=== PATIENT | female | born 1990 | race Caucasian/White ===

== ENCOUNTER → 2016-07-23 | Outpatient (CLI) | payer OTHER, BC ==
[~2016-07-23] MED LIST: BACL10TA PO; BUSP5TAB59 PO; CLC100 PO; CYM30 PO; CYM60 PO; DANT100C PO; DOCUENE PR; FLUT0.15; GABA600T PO; GFNSR600 PO; LORA-741 PO; LRS20 PO; MAGN400T7 PO; METH1TAB5 PO; MIRT15TA3 PO; NRN/300 PO; NRN600 PO; NYST100098 TOP; ONDA4TAB10 SL; OXYC-57 PO; PRMT25 PO; SODI1TAB PO; XRL20 PO; ZOLP5TAB6 PO; [UNRECOGNIZED DRUG - CODE] PO
[2016-07-23 12:01] LABS: BASO % 0.6 %; BASO ABS # 0.03 K/uL (0-0.2); COMPLETE YES; EOS % 2.4 %; HEMATOCRIT 39.2 % (37-47); IG% 0.2 %; LYMPH % 48.3 %; LYMPH ABS # 2.41 K/uL (1.2-3.4); MEAN CELL VOLUME 93.6 fL (80-100); MEAN CORPUSCULAR HGB CONC 33.2 g/dl (32-36); MONO % 13.6 %; NEUT % 34.9 %; PLATELET COUNT 102 K/uL (130-400); RED BLOOD COUNT 4.19 M/uL (4.2-5.4); WHITE BLOOD COUNT 4.99 K/uL (4.8-10.8)
[2016-07-23 13:22] LABS: ALT/SGPT 23 U/L (12-78); BLOOD UREA NITROGEN 10 mg/dl (7-18); BUN/CREATININE RATIO 28.8 (10-20); CALCIUM 9.1 mg/dl (8.5-10.1); CARBON DIOXIDE 22 mmol/L (21-32); CHLORIDE 106 mmol/L (98-107); CREATININE 0.34 mg/dl (0.60-1.20); GLUCOSE 82 mg/dl (70-99); POTASSIUM 4.1 mmol/L (3.5-5.1); SODIUM 137 mmol/L (136-145)
[2016-07-23 13:27] LABS: ALB/GLOB RATIO 1.4 (0.9-2); ALKALINE PHOSPHATASE 64 U/L (45-117); AST/SGOT 15 U/L (15-37); FERRITIN 16.1 ng/ml (8.0-388.0); TOTAL IRON BINDING CAPACITY 308 mcg/dl (250-450)
== END | disposition home or self-care (01) ==
LOC: C.LAB 11:16
PROVIDERS: ATTEND Nurse Practitioner Family
DX: D61.818 Other pancytopenia (principal)

== ENCOUNTER → 2016-08-26 | Day surgery (SDC) | payer OTHER, BC ==
[2016-08-17 11:00] VITALS: BMI 17.0
[~2016-08-26] VITALS: Ht 175.3 cm; Wt 53.6 kg
[~2016-08-26] MED LIST changes: +ATROPINE SULFATE 0.1 MG/ML 5ML SYR IV PRN; +BOTULINUM TOXIN TYPE A 100 UNIT VIAL IM ONE; +EpHEDrine SULFATE INJ 50 MG/ML AMP IV PRN; +FENTANYL CITRATE INJ 50 MCG/1 ML 2 ML VIAL IV PRN; +FENTANYL CITRATE INJ 50 MCG/1 ML 2 ML VIAL ONE; +HYDROmorphone INJ 1 MG/ML SYR IV PRN; +LABETALOL HCL IV 5 MG/ML 20ML IV PRN; +LACTATED RINGER'S 1000ML 1,000 ML IV SCH; +MEPERIDINE HCL 25 MG/ML CARP IV PRN; +MIDAZOLAM HCL 1 MG/ML 2ML VIAL ONE; +NITROFURANTOIN MONOHYDRATE 100 MG CAP PO STA; -NRN600 PO; +ONDANSETRON INJ 2 MG/ML 2 ML VIAL IV PRN; +SODIUM CHLORIDE 0.9% PF 50 ML VIAL ONE
--- NOTE | 2016-08-26 08:02 | History & Physical Bridge Note ---
H&P Re-Evaluation Bridge Note: I have examined the patient, reviewed the History & Physical and in the interval since the performance of the History & Physical I have noted the following changes of clinical significance: No changes noted
[2016-08-26 08:14] VITALS: BP 101/66; PULSE 56; TEMP 36.7; O2SAT 97; Ht 175.3 cm; Wt 53.6 kg
--- NOTE | 2016-08-26 08:24 | History and Physical ---
History Date of Service: Aug 26, 2016. Chief Complaint: spinal cord injury with bladder overactivity and urge incontinence Primary Care Physician: Noel Centeno M.D.([email or web address]) Pt seen a urologist before?: Yes History of Present Illness Patient presents for repeat botox injection in bladder. We use this to control painful bladder spasms with urge incontinence and to improve bladder capacity. Laboratory Labs were reviewed and are within normal limits unless listed below. Labs are available in the chart and at [facility] Problem List Medical Problems: (1) Bronchitis Status: Acute (2) Bronchitis Status: Acute (3) Catheter-associated urinary tract infection Status: Acute (4) Diarrhea Status: Acute (5) Hx of spinal cord injury Status: Acute (6) Left sided chest pain Status: Acute (7) PVC's (premature ventricular contractions) Status: Acute Past History Past Medical History: anaphylaxis, bowel obstruction, deep vein thrombosis, hypercoagulability, pulmonary embolism, other (quadriplegia, traumatic) Past Surgical History: exploratory laparotomy (bowel obstruction, mitrophanof bladder catheterizable stoma, since removed at laparotomy ), orthopedic surgery , other Family History Diabetes mellitus FH: gallbladder disease FH: heart disease FHx: lung disease Hypertension Kidney disease Kidney stones Seizures Social History Hx Tobacco Use In Past Year?: Yes (QUIT 2011) Smoking: non-smoker Alcohol: never Drug use: none Marital status: single Housing status: lives with family Occupation status: student Immunizations History of Influenza Vaccine: Yes Influenza Vaccine Date: Feb 13, 2015 History of Tetanus Vaccine?: Yes Tetanus Immunization Date: Apr 17, 2011 History of Pneumococcal: No History of Hepatitis B Vaccine: Yes Hepatitis Immunization Date: May 22, 1998 History of MDRO Yes Allergies Coded Allergies: Cefepime (Verified Allergy, Severe, ANAPHYLAXIS, 08/26/16) Levofloxacin (Verified Allergy, Mild, rash, 08/26/16) Penicillins (Verified Allergy, Unknown, RASH PER MOTHER, 08/26/16) Sulfa Antibiotics (Verified Allergy, Unknown, `, 08/26/16) Imipenem (Verified Adverse Reaction, Severe, SEIZURE, 08/26/16) Progress note by Dr. Walker: "Seizure may have been caused by imipenem." This is not an allergy. If rechallenged, consider dosing conservatively. Vancomycin (Verified Adverse Reaction, Intermediate, RASH, 08/26/16) Medications Home Medications: Home Meds and Scripts Medications Dose Route/Sig Max Daily Dose Days Date Category Dose Instructions Neurontin (Gabapentin) 600 Mg Tab 600 Mg PO QID 08/17/16 Reported TAKES A 600 AND A 300 TOTAL OF 900 Neurontin (Gabapentin) 300 Mg Cap 300 Mg PO QID 08/17/16 Reported TAKES A 600 AND A 300 TOTAL OF 900 Baclofen 20 Mg Tab 20 Mg PO QID 08/17/16 Reported TAKES A 10MG AND A 20 MG TOTAL OF 30 Buspirone Hcl 5 Mg Tab 1 Tab PO BID PRN 30 03/17/16 Reported Lioresal (Baclofen) 10 Mg Tab 10 Mg PO QID 03/03/16 Reported TAKES A 10MG AND A 20 MG TOTAL OF 30 Xarelto (Rivaroxaban) 20 Mg Tab 20 Mg PO QAM 02/06/16 Reported WILL HOLD ONE DAY Sodium Chloride 1 Gm Tab 2 Gm PO TID 02/06/16 Reported Magnesium Oxide (Magnesium Oxide (Mg Supplement) 241.3 Mg Tab 241.3 Mg PO DAILY 02/06/[address] [facility] Vitamin C (Ascorbic Acid) 500 Mg Tab 1,000 Mg PO BID 02/06/16 Reported Zolpidem Tartrate 5 Mg Tab 5 Mg PO HS PRN 02/06/16 Reported Duloxetine HCl 60 Mg Cap 60 Mg PO QAM 02/06/16 Reported Duloxetine HCl 30 Mg Cap 30 Mg PO QPM 02/06/16 Reported TAKE 30 MG IN THE AFTERNOON Methenamine Hippurate 1 Gm Tab 1 Gm PO BID 02/06/16 Reported Enemeez Mini (Docusate Sodium) 283 Mg Irma 1 Ea AL HS 02/06/16 Reported Docusate Sodium 100 Mg Cap 100 Mg PO BID 02/06/16 Reported Mucinex Ext Rel (Guaifenesin) 600 Mg Tabcr 1,200 Mg PO Q12 PRN 02/06/16 Reported Zofran Odt (Ondansetron HCl) 4 Mg Tab 4 Mg SL Q6H PRN 11/06/15 Reported Dantrolene Sodium 100 Mg Cap 100 Mg PO TID 10/09/15 Reported Mycostatin (Nystatin) Powd 1 Appln TOP BID PRN 07/29/15 Reported Flonase Allergy Relief (Fluticasone Propionate (Nasal)) 50 Mcg/Act Spr 2 Sprays NA HS PRN 07/29/15 Reported Percocet 5MG/325MG (Oxycodone/Acetaminophen) Tab 1 Tab PO Q4H PRN 07/29/15 Reported Ativan (Lorazepam) 0.5 Mg Tab 0.5 Mg PO Q8 PRN 08/27/14 Reported Remeron (Mirtazapine) 15 Mg Tab 7.5 Mg PO HS 10/27/13 Reported Midodrine HCl (Midodrine) 2.5 Mg Tab 2.5 Mg PO QAM 09/17/13 Reported Inpatient Medications: Current Inpatient Medications Medications (Trade) Dose Ordered Sig/Mila Route Start Time Stop Time Status Last Admin Dose Admin Lactated Ringer's (Lr 1000ml) 1,000 ml @ 15 mls/hr Q24H IV 08/26/16 06:00 08/27/16 05:59 Botulinum Toxin Type A (Botox Inj) 200 units ONE IM 08/26/16 07:30 09/25/16 07:29 UNV Fentanyl Citrate (Fentanyl Inj) 50 mcg Q5M PRN IV 08/26/16 07:45 08/27/16 07:44 UNV Hydromorphone HCl (Dilaudid Inj) 0.5 mg Q5M PRN IV 08/26/16 07:45 08/27/16 07:44 UNV Meperidine HCl (Demerol Inj) 25 mg Q5M PRN IV 08/26/16 07:45 08/27/16 07:44 UNV Ondansetron HCl (Zofran Inj) 4 mg ONE PRN IV 08/26/16 07:45 08/27/16 07:44 UNV Labetalol HCl (Normodyne IV) 5 mg Q5M PRN IV 08/26/16 07:45 08/27/16 07:44 UNV Ephedrine Sulfate (EpHEDrine SULFATE INJ) 5 mg Q5M PRN IV 08/26/16 07:45 08/27/16 07:44 UNV Atropine Sulfate (Atropine Sulfate 0.1MG/Ml Inj) 0.5 mg Q1M PRN IV 08/26/16 07:45 08/27/16 07:44 UNV Review of Systems Review of Systems Constitutional: No chills, No fever Neurological: No dizzy Endocrine: + tired/sluggish, No excessive thirst Cardiovascular: No chest pain, No palpitations, No swelling ankles/feet (small dark skin posterior left heal 20mm ) Respiratory: No chronic cough, No shortness of breath Musculoskeletal: + back pain, + joint pain, + neck pain Female : + infections, + leaking urine Physical Exam Physical Exam: General Appearance: WD/WN, no apparent distress, + thin Eyes: bilateral eyes normal inspection ENT: hearing grossly normal Neck: no adenopathy Respiratory/Chest: lungs clear, normal breath sounds, no respiratory distress, + accessory muscle use Cardiovascular: regular rate, rhythm, no edema Extremities: non-tender, normal inspection, + pedal edema Neurologic/Psychiatric: alert, normal mood/affect, oriented x 3 Skin: normal color, warm/dry, no rash Assessment & Plan Assessment & Plan spinal cord injury with bladder overactivity and bladder spasms and urge incontinence plan botox injection 200 units she has been on macrobid antibiotic culture specific for her latest urine culture. She and her mother have signed consent understanding risk of infection.
[2016-08-26 09:20] VITALS: BP 82/46; PULSE 65; TEMP 36.5; O2SAT 95
--- NOTE | 2016-08-26 09:22 | [facility] Operative Report ---
Operative Report Operative Date Aug 26, 2016. Pre-Operative Diagnosis Spinal cord injury with bladder overactivity and bladder spasms and urge incontinence Post-Operative Diagnosis same plus bladder stones Procedure(s) Performed cysto with injection of botox into bladder detrusor muscle, fragmentation and removal of small bladder stones. Bonds catheter placement. Surgeon Dr. Shoemaker Front Desk Administrator Surgeon(s) none Estimated Blood Loss 1mL Findings white soft corn flake size 2mm thick bladder sones x 3. Bladder wall is not inflamed. Mildly trabeculated. UOs normal. Fluids 100mL Specimens none Drains 16 fr bonds catheter Anesthesia iv sedation Complication(s) None Disposition same day surgery Indications spinal cord injury with retention and on intermittent catheterization. her bladder cannot go longer than 2 hours without pressure headache and urinary leakage. We plan botox to relax detrusor muscle decrease storage pressures and improve bladder capacity and decrease leakage so she can go longer between caths. Description of Procedure Patient had sedation and was placed carefully in lithotomy position. She was awake enough to make any adjustments to position for her comfort. her genitals were prepped and draped in sterile fashion. She is menstruating. time out held with team. I placed a 22 fr cystoscope to bladder. The bladder is not inflamed. She had 3 cornflake size bladder stones white in color and soft. Simple manipulation with the scope was able to crack them and the pieces were carefully rinsed out. I injected 200 units of botox via 30 injections spread throughout the bladder. I used a 21 G sidekick needle. The was mild bleeding from one of the injections. I removed scope and placed a 16 fr bonds and inflated the balloon with 5mL water. She tolerated procedure well and transferred in stable condition to pacu. asa 3 dirty case + urine culture last week had culture specific pre-op macrobid last 3 days I attest to the content of the Intraoperative Record and any orders documented therein. Any exceptions are noted below.
--- NOTE | 2016-08-26 09:26 | Discharge Instructions ---
Discharge Instructions Date of Service Aug 26, 2016. Admission Reason for Admission: spinal cord injury, urge incontinence Discharge Discharge Diagnosis / Problem: spinal cord injury, urge incontinence, bladder stones Discharge Goals Goal(s): Decrease discomfort, Improve function, Improve disease control Activity Recommendations Activity Limitations: resume your previous activity Lifting Limitations: none Exercise/Sports Limitations: none May Resume Sexual Activity: when tolerated Shower/Bathe: no limitations Driving or Machine Use: resume 1 day after discharge . Instructions / Follow-Up Instructions / Follow-Up call with problems Discharge Diet Recommended Diet: Regular Diet Procedures Procedures Performed: Cystoscopy with botox injection, removal of small bladder stones Pending Studies Studies pending at discharge: no Medical Emergencies . Who to Call and When: Medical Emergencies: If at any time you feel your situation is an emergency, please call 911 immediately. . Non-Emergent Contact Non-Emergency issues call your: Urologist ([phone]) Call Non-Emergent contact if: temperature is above 100.5 . . "Provider Documentation" section prepared by Heidi Shoemaker. VTE Core Measure Inpt VTE Proph given/why not?: SCD's [place] Drug Monitoring Program Search Results: patient reviewed within database, no issues identified
[2016-08-26 09:50] VITALS: BP 83/54; PULSE 66; O2SAT 97
[2016-08-26 10:20] VITALS: PULSE 60; O2SAT 96
--- NOTE | 2016-08-26 11:18 | Anesthesiology Progress Note ---
Anesthesia Post Op Note Date & Time Aug 26, 2016 at 11:18 Vital Signs Pain Intensity: 0 Vital Signs Past 12 Hours Date Time Temp Pulse Resp B/P Pulse Ox O2 Delivery O2 Flow Rate FiO2 08/26/16 09:50 66 18 83/54 97 Room Air 08/26/16 09:20 36.5 65 18 82/46 95 Room Air 08/26/16 08:14 36.7 56 20 101/66 97 Room Air Notes Mental Status: alert / awake / arousable, participated in evaluation Pt Amnestic to Procedure: Yes Nausea / Vomiting: adequately controlled Pain: adequately controlled Airway Patency, RR, SpO2: stable & adequate BP & HR: stable & adequate Hydration State: stable & adequate Anesthetic Complications: no major complications apparent
--- NOTE | 2016-08-26 11:35 | DIAGNOSTIC IMAGING REPORT ---
A-PORT CHECK CLINICAL HISTORY: No blood return from the port for 1 year. Discomfort at port site and difficulty with port access. Fluoroscopy time: 0.3 minutes. FINDINGS: The patient's left subclavian central venous infusion port was accessed and contrast was manually injected for an A-Port check. There is normal flow of contrast through the port into the SVC. There is no evidence of fibrin sheath. The port appears intact. IMPRESSION: Unremarkable infusion port check. The catheter appears intact and there is no evidence of fibrin sheath. Electronically signed by: Will eBtts M.D. 08/26/2016 11:34 AM Dictated Date/Time: 08/26/2016 11:23 AM
== END | disposition home or self-care (01) ==
LOC: C.ACU 07:13
PROVIDERS: ATTEND Urology
DX: N21.0 Calculus in bladder (principal); N39.41 Urge incontinence; N32.89 Other specified disorders of bladder; G82.50 Quadriplegia, unspecified

== ENCOUNTER → 2017-06-23 | Day surgery (SDC) | payer BC, OTHER ==
[~2017-06-23] VITALS: Ht 175.3 cm; Wt 63.2 kg
[~2017-06-23] MED LIST changes: -BOTULINUM TOXIN TYPE A 100 UNIT VIAL IM ONE; +BUSP-8 PO; -BUSP5TAB59 PO; +DEXAMETHASONE SOD INJ 4 MG/ML VIAL ONE; +DEXTROSE 5% IV SCH; +DiphenhydrAMINE HCL 50 MG/ML VIAL ONE; +GABA-113 PO; -LABETALOL HCL IV 5 MG/ML 20ML IV PRN; -LACTATED RINGER'S 1000ML 1,000 ML IV SCH; +LIDOCAINE HCL 2% 2 ML VIAL (20MG/ML) ONE; -MEPERIDINE HCL 25 MG/ML CARP IV PRN; +METH-1305 PO; -METH1TAB5 PO; +NITR-5 PO; -NITROFURANTOIN MONOHYDRATE 100 MG CAP PO STA; -NRN/300 PO; +NURSING VERBAL MED ORDER ONE; +NYST100033 TOP; -NYST100098 TOP; -ONDA4TAB10 SL; -OXYC-57 PO; +OXYC-643 PO; -PRMT25 PO; +PROMETHAZINE HCL INJ 12.5 MG in SODIUM CHLORIDE 0.9% 50ML 50 ML IV PRN; +PROPOFOL IV EMULSION 10 MG/ML 20 ML VIAL IV ONE; +RANITIDINE HCL 25 MG/ML INJ ONE; -SODI1TAB PO; +TOBRAMYCIN SULF IV SCH; +[UNRECOGNIZED DRUG - OTHER] IM ONE
[2017-06-23 14:02] LABS: HEMATOCRIT 41.6 % (37-47); HEMOGLOBIN 14.1 g/dL (12.0-16.0); MEAN CELL VOLUME 92.2 fL (80-100); MEAN CORPUSCULAR HEMOGLOBIN 31.3 pg (25-34); MEAN PLATELET VOLUME 10.4 fL (7.4-10.4); PLATELET COUNT 101 K/uL (130-400); RED CELL DISTRIBUTION WIDTH CV 12.9 % (11.5-14.5); RED CELL DISTRIBUTION WIDTH SD 43.4 fL (36.4-46.3); WHITE BLOOD COUNT 5.34 K/uL (4.8-10.8)
[2017-06-23 14:07] LABS: MEAN CORPUSCULAR HGB CONC 33.9 g/dl (32-36)
[2017-06-23 14:11] VITALS: BP 123/91; PULSE 65; TEMP 37; O2SAT 97; Ht 175.3 cm; Wt 63.2 kg
--- NOTE | 2017-06-23 15:28 | History and Physical ---
History & Physical Date Jun 23, 2017. Chief Complaint quadriplegia causing bladder spasms History of Present Illness The patient is a 26 year old female with complaints of painful bladder spasms despite large doses antimuscarinics. We use botox about yearly injected into bladder. her spasms have become severe so we plan new injection of botox into bladder. Her urine is chronically colonized so she has had 3 cam of oral and iv antibiotics culture specific. Her bladder pain has improved and it has cleared its cloudiness, but her spasms continue. 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 (11) Methicillin resistant Staphylococcus aureus infection (12) Neurogenic bladder (13) Quadriplegia (14) Quadriplegia Surgical Problems: (1) H/O tracheostomy (2) PEG (percutaneous endoscopic gastrostomy) status (3) S/p Aport placement (4) S/P appendectomy (5) S/p bladder stone removal (6) S/p ileocecectomy and resection of ileal conduit (7) s/p robotic enterocystoplasty (8) S/P spinal fusion (9) S/P thoracentesis Additional History Hepatic Disease: No Endocrine Disorder: No Kidney Disease: No Hypertension: No Heart Disease: No Infectious Diseases: Yes LMP: apr 2017 Allergies Coded Allergies: Cefepime (Verified Allergy, Severe, ANAPHYLAXIS, 06/22/17) Levofloxacin (Verified Allergy, Mild, rash, 06/22/17) Penicillins (Verified Allergy, Unknown, RASH PER MOTHER, 06/22/17) Sulfa Antibiotics (Verified Allergy, Unknown, UNKNOWN, 06/22/17) Imipenem (Verified Adverse Reaction, Severe, SEIZURE, 06/22/17) Progress note by Dr. Walker: "Seizure may have been caused by imipenem." This is not an allergy. If rechallenged, consider dosing conservatively. Vancomycin (Verified Adverse Reaction, Intermediate, RASH, 06/22/17) Home Medications Scheduled Ascorbic Acid ([facility] Vitamin C), 1,000 MG PO BID Baclofen (Lioresal), 10 MG PO QID Baclofen (Baclofen), 20 MG PO QID Buspirone Hcl (Buspirone Hcl), 1 TAB PO BID Dantrolene Sodium (Dantrolene Sodium), 100 MG PO TID Docusate Sodium (Docusate Sodium), 100 MG PO BID Docusate Sodium (Enemeez Mini), 1 EA MD HS Duloxetine HCl (Duloxetine HCl), 30 MG PO QPM Duloxetine HCl (Duloxetine HCl), 60 MG PO QAM Gabapentin (Neurontin), 600 MG PO HS Gabapentin (Neurontin), 300 MG PO TID Magnesium Oxide (Mg Supplement (Magnesium Oxide), 241.3 MG PO QPM Methenamine Hippurate (Methenamine Hippurate), 1 GM PO BID Mirtazapine (Remeron), 7.5 MG PO HS Nitrofurantoin Monohyd Macrocr (Macrobid), 100 MG PO BID Rivaroxaban (Xarelto), 20 MG PO QAM Scheduled PRN Fluticasone Propionate (Nasal) (Flonase Allergy Relief), 2 SPRAYS NA HS PRN for Nasal Congestion Guaifenesin Ext Rel (Mucinex Ext Rel), 1,200 MG PO Q12 PRN for Mucous Congestion Lorazepam (Ativan), 0.5 MG PO Q8 PRN for Anxiety Nystatin (Topical) (Nystatin), 1 DOSE TOP BID PRN for N Zolpidem Tartrate (Zolpidem Tartrate), 5 MG PO HS PRN for Insomnia Physical Examination Skin: warm/dry Eyes: normal inspection ENT: normal ENT inspection Head: normocephalic Neck: no adenopathy, trachea midline, + pertinent finding (scar from prior trach) Respiratory/Chest: lungs clear, normal breath sounds, no respiratory distress Cardiovascular: regular rate, rhythm Abdomen / GI: normal bowel sounds, + pertinent finding (mildly distended) Extremities: normal inspection, + pertinent finding (chronic wasting) Diagnosis bladder spasms due to spinal cord injury ASA Classification: ASA Class III Plan of Treatment plan botox injection into bladder has had both doses of abt today so far. 200 units botox injected into detrusor I have explained procedure and risks and her mother signed consent for her.
--- NOTE | 2017-06-23 16:34 | [facility] Operative Report ---
Operative Report Operative Date Jun 23, 2017. Pre-Operative Diagnosis bladder spasms due to quadriplegia Post-Operative Diagnosis same Procedure(s) Performed cystoscopy with injection of botox into detrusor muscle Surgeon Dr. Shoemaker Machine Lay Out Worker Surgeon(s) none Estimated Blood Loss 0mL Findings fine specks of stone 1mm or less in bladder, no active cystitis , some very faded signs of cystitis cystica, little to no trabeculation, uos normal Fluids 400mL Specimens none Drains 14 fr Bonds Anesthesia iv sedation Complication(s) None Disposition Recovery Room / PACU Indications severe bladder spasms due to quadriplegia despite oral antimuscarinics Description of Procedure Patient was sedated and placed in lithotomy position. Her genitals were prepped and draped in sterile fashion. Time out held with team. I placed a 21 fr rigid collagen injecting cystoscope to bladder. The urethra is unremarkable. The UOs are in normal location. I used the sidekick needle to inject 200 units of botox into detrusor throughout bladder in 31 one mL injections. She tolerated it well. I drained bladder by placing a 14 fr bonds and concluded case. She transferred to recovery under my escort, in stable condition. Plan: Home today finish po macrobid and iv tobramycin this week oral pain meds as needed ASA 3 dirty case macrobid and tobramycin antibiotic prior to case I attest to the content of the Intraoperative Record and any orders documented therein. Any exceptions are noted below.
--- NOTE | 2017-06-23 16:37 | Discharge Instructions ---
Discharge Instructions Date of Service Jun 23, 2017. Admission Reason for Admission: bladder spasms due to quadriplegia Discharge Discharge Diagnosis / Problem: bladder spasms due to quadriplegia Discharge Goals Goal(s): Decrease discomfort, Improve function, Improve disease control Activity Recommendations Activity Limitations: resume your previous activity . Current Hospital Diet Patient's current hospital diet: Discharge Diet Recommended Diet: Regular Diet Procedures Procedures Performed: cystoscopy with injection of botox into detrusor muscle Pending Studies Studies pending at discharge: no Medical Emergencies . Who to Call and When: Medical Emergencies: If at any time you feel your situation is an emergency, please call 911 immediately. . Non-Emergent Contact Non-Emergency issues call your: Urologist Call Non-Emergent contact if: temperature is above 100.5 . . "Provider Documentation" section prepared by Heidi Shoemaker. . VTE Core Measure Inpt VTE Proph given/why not?: Other Anticoagulation, SCD's [place] Drug Monitoring Program Search Results: patient reviewed within database, no issues identified
--- NOTE | 2017-06-23 16:54 | Anesthesiology Progress Note ---
Anesthesia Post Op Note Date & Time Jun 23, 2017 at 16:51 Vital Signs Pain Intensity: 0 Vital Signs Past 12 Hours Date Time Temp Pulse Resp B/P (MAP) Pulse Ox O2 Delivery O2 Flow Rate FiO2 06/23/17 16:45 36.3 66 14 94/56 99 Nasal Cannula 2 06/23/17 16:35 60 14 103/67 99 Nasal Cannula 2 06/23/17 16:25 36.4 74 12 107/63 94 Nasal Cannula 2 06/23/17 14:11 37 65 16 123/91 (102) 97 Notes Mental Status: alert / awake / arousable, participated in evaluation Pt Amnestic to Procedure: Yes Nausea / Vomiting: adequately controlled Pain: adequately controlled Airway Patency, RR, SpO2: stable & adequate BP & HR: stable & adequate Hydration State: stable & adequate Anesthetic Complications: no major complications apparent Pt awake, doing well, VSS. Noted a rash on the upper chest and neck area after fentanyl was given. Lips and mouth area was not affected. Pt was treated with decadron, ranitidine, and 12.5mg iv benadryl with improvement in rash. In PACU pt c/o more itching and another 12.5mg of IV benadryl was given with resolution of rash and improvement of pruritus. Pt denies any SOB, problem breathing, or swelling anywhere.
[2017-06-23 16:55] VITALS: BP 97/56; PULSE 62; TEMP 36.6; O2SAT 99
--- NOTE | 2017-06-23 16:56 | Anesthesiology Progress Note ---
Anesthesia Post Op Note Date & Time Jun 23, 2017 at 16:52 Vital Signs Pain Intensity: 0 Vital Signs Past 12 Hours Date Time Temp Pulse Resp B/P (MAP) Pulse Ox O2 Delivery O2 Flow Rate FiO2 06/23/17 16:45 36.3 66 14 94/56 99 Nasal Cannula 2 06/23/17 16:35 60 14 103/67 99 Nasal Cannula 2 06/23/17 16:25 36.4 74 12 107/63 94 Nasal Cannula 2 06/23/17 14:11 37 65 16 123/91 (102) 97 Notes Mental Status: alert / awake / arousable Pt Amnestic to Procedure: Yes Nausea / Vomiting: adequately controlled Pain: adequately controlled Airway Patency, RR, SpO2: stable & adequate BP & HR: stable & adequate Hydration State: stable & adequate At the beginning of the case after 2 of versed had been administered and 100 mcg of fentanyl a rash was noted across the patients right side of her chest up to the right side of her face; BASKET MENDER notified the urologist and Dr. Larios. Pt was given 12.5 mg IV benadryl and 12. mg IV ranitidine and 8 mg IV decadron. Pt had become slightly hypotensive (89/46) pt was give a 200 cc IVF bolus. When pt was taken to PACU pt was still complaining of itchiness. Dr. Larios was notified and patient was then given 12.5 mg IV benadryl. Itchiness and rash improved.
[2017-06-23 17:25] VITALS: BP 117/76; PULSE 62; TEMP 36.5; O2SAT 98
== END | disposition home or self-care (01) ==
LOC: C.ACU 13:31
PROVIDERS: ATTEND Urology
DX: N32.89 Other specified disorders of bladder (principal); N31.9 Neuromuscular dysfunction of bladder, unspecified; L27.1 Localized skin eruption due to drugs and medicaments taken internally; T40.4X5A Adverse effect of other synthetic narcotics, initial encounter; G82.50 Quadriplegia, unspecified; G90.4 Autonomic dysreflexia; F32.9 Major depressive disorder, single episode, unspecified; Z93.0 Tracheostomy status; Z98.890 Other specified postprocedural states; Z79.899 Other long term (current) drug therapy

== ENCOUNTER 2017-08-18 17:47 | Inpatient (IN) | payer BC, OTHER ==
[~2017-08-18] VITALS: Ht 175.3 cm; Wt 63.0 kg
[~2017-08-18 17:47] MED LIST changes: -ATROPINE SULFATE 0.1 MG/ML 5ML SYR IV PRN; -BACL10TA PO; -DEXAMETHASONE SOD INJ 4 MG/ML VIAL ONE; -DEXTROSE 5% IV SCH; +DTR/5 PO; -DiphenhydrAMINE HCL 50 MG/ML VIAL ONE; -EpHEDrine SULFATE INJ 50 MG/ML AMP IV PRN; -FENTANYL CITRATE INJ 50 MCG/1 ML 2 ML VIAL IV PRN; -FENTANYL CITRATE INJ 50 MCG/1 ML 2 ML VIAL ONE; -HYDROmorphone INJ 1 MG/ML SYR IV PRN; -LIDOCAINE HCL 2% 2 ML VIAL (20MG/ML) ONE; -MIDAZOLAM HCL 1 MG/ML 2ML VIAL ONE; -NITR-5 PO; -NURSING VERBAL MED ORDER ONE; -ONDANSETRON INJ 2 MG/ML 2 ML VIAL IV PRN; -PROMETHAZINE HCL INJ 12.5 MG in SODIUM CHLORIDE 0.9% 50ML 50 ML IV PRN; -PROPOFOL IV EMULSION 10 MG/ML 20 ML VIAL IV ONE; -RANITIDINE HCL 25 MG/ML INJ ONE; -SODIUM CHLORIDE 0.9% PF 50 ML VIAL ONE; -TOBRAMYCIN SULF IV SCH; +VITACAP26 PO; -[UNRECOGNIZED DRUG - OTHER] IM ONE
[2017-08-18] MEDS ORDERED: HYDROmorphone INJ 1 MG/ML SYR IV STA (18:08)
[2017-08-18] MEDS ORDERED: ONDANSETRON INJ 2 MG/ML 2 ML VIAL IV STA (18:08)
[2017-08-18] MEDS ORDERED: METRONIDAZOLE 500MG / 100ML NSS IV STA (18:26)
[2017-08-18] MEDS ORDERED: CEFTAZIDIME IV STA (18:26)
[2017-08-18] MEDS ORDERED: DEXTROSE 5% IV STA (18:26)
--- NOTE | 2017-08-18 18:33 | EMERGENCY ROOM VISIT NOTE ---
History Report prepared by Etienne: Albina Salmeron Under the Supervision of: Dr. Servando Philippe M.D. First contact with patient: 17:57 Chief Complaint: WOUND INFECTION Stated Complaint: OPEN WOUND ON BUTTUCKS, REFERRED History of Present Illness The patient is a 26 year old female who presents to the Emergency Room with complaints of a persistent infected wound on her left buttock that began a couple of weeks ago. The patient states that she is a patient at the wound clinic, where they have been treating her wound. One week ago, the patient had some culture collected from her wound, noting that she got the results back 2 days ago. She reports that the doctor told her to report to the Emergency Department if her symptoms worsened, noting he suggested she receive IV antibiotics. The patient's mother states that they had a follow up appointment today at the wound clinic, but they were unable to go because of the weather conditions. The patient takes Percocet to relieve her left buttock pain, noting the last time she took any was last night. She reports that he has a port in place. Source of History: patient Onset: a couple of weeks ago Position: buttock (left) Quality: other (infected wound) Timing: other (persistent) Note: Associated symptoms include: left buttock pain Review of Systems See HPI for pertinent positives & negatives. A total of 10 systems reviewed and were otherwise negative. 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 (11) Methicillin resistant Staphylococcus aureus infection (12) Neurogenic bladder (13) Quadriplegia (14) Quadriplegia Surgical Problems: (1) H/O tracheostomy (2) PEG (percutaneous endoscopic gastrostomy) status (3) S/p Aport placement (4) S/P appendectomy (5) S/p bladder stone removal (6) S/p ileocecectomy and resection of ileal conduit (7) s/p robotic enterocystoplasty (8) S/P spinal fusion (9) S/P thoracentesis Family History Diabetes mellitus FH: gallbladder disease FH: heart disease FHx: lung disease Hypertension Kidney disease Kidney stones Seizures Social History Smoking Status: Former Smoker Alcohol Use: none Drug Use: none Marital Status: single Housing Status: lives with family Occupation Status: disabled Current/Historical Medications Scheduled Ascorbic Acid (Cvs Vitamin C), 1,000 MG PO BID Baclofen (Baclofen), 20 MG PO QID Buspirone Hcl (Buspirone Hcl), 1 TAB PO BID Dantrolene Sodium (Dantrolene Sodium), 100 MG PO TID Docusate Sodium (Docusate Sodium), 100 MG PO BID Docusate Sodium (Enemeez Mini), 1 EA [place] HS Duloxetine HCl (Duloxetine HCl), 30 MG PO QPM Duloxetine HCl (Duloxetine HCl), 60 MG PO QAM Gabapentin (Neurontin), 600 MG PO HS Gabapentin (Neurontin), 300 MG PO BID Magnesium Oxide (Mg Supplement (Magnesium Oxide), 400 MG PO QPM Methenamine Hippurate (Methenamine Hippurate), 1 GM PO BID Mirtazapine (Remeron), 7.5 MG PO HS Oxybutynin Chloride (Ditropan), 5 MG PO QID Oxycodone/Acetaminophen 5MG/325MG (Oxycodone/Acetaminophen 5MG/325MG), 1 TABLET PO Q6H Rivaroxaban (Xarelto), 20 MG PO QAM Vitamins C & E (Vitamin C), 500 MG PO BID Scheduled PRN Fluticasone Propionate (Nasal) (Flonase Allergy Relief), 2 SPRAYS NA HS PRN for Nasal Congestion Guaifenesin Ext Rel (Mucinex Ext Rel), 1,200 MG PO Q12 PRN for Mucous Congestion Lorazepam (Ativan), 0.5 MG PO Q8 PRN for Anxiety Nystatin (Topical) (Nystatin), 1 DOSE TOP BID PRN for N Zolpidem Tartrate (Zolpidem Tartrate), 5 MG PO HS PRN for Insomnia Allergies Coded Allergies: Cefepime (Verified Allergy, Severe, ANAPHYLAXIS, 06/24/17) Levofloxacin (Verified Allergy, Mild, rash, 06/24/17) Penicillins (Verified Allergy, Unknown, RASH PER MOTHER, 06/24/17) Sulfa Antibiotics (Verified Allergy, Unknown, UNKNOWN, 06/24/17) Imipenem (Verified Adverse Reaction, Severe, SEIZURE, 06/24/17) Progress note by Dr. Walker: "Seizure may have been caused by imipenem." This is not an allergy. If rechallenged, consider dosing conservatively. Vancomycin (Verified Adverse Reaction, Intermediate, RASH, 06/24/17) Physical Exam Vital Signs Date Time Temp Pulse Resp B/P (MAP) Pulse Ox O2 Delivery O2 Flow Rate FiO2 08/18/17 18:32 100 Room Air 08/18/17 17:48 36.7 66 17 136/90 100 Room Air Physical Exam GENERAL: Awake, alert, well-appearing, in no acute distress HENT: Normocephalic, atraumatic. Oropharynx unremarkable. EYES: Normal conjunctiva. Sclera non-icteric. NECK: Supple. No nuchal rigidity. FROM. No JVD. RESPIRATORY: Clear to auscultation. CARDIAC: Regular rate, normal rhythm. Extremities warm and well perfused. Pulses equal. ABDOMEN: Soft, non-distended. No tenderness to palpation. No rebound or guarding. No masses. RECTAL: Deferred. MUSCULOSKELETAL: Chest examination reveals no tenderness. The back is symmetrical on inspection without obvious abnormality. There is no CVA tenderness to palpation. No joint edema. LOWER EXTREMITIES: Quarter size and malodorous ulcer on left buttock. Contractures present to bilateral lower extremities and fourth and fifth fingers bilaterally. Calves are equal size bilaterally and non-tender. No edema. No discoloration. NEURO: Normal sensorium. No sensory or motor deficits noted. SKIN: No rash or jaundice noted. Medical Decision & Procedures Laboratory Results 08/18/17 18:37 Red Blood Count 4.22, Mean Corpuscular Volume 91.9, Mean Corpuscular Hemoglobin 30.8, Mean Corpuscular Hemoglobin Concent 33.5, Mean Platelet Volume 10.6, Neutrophils (%) (Auto) 44.0, Lymphocytes (%) (Auto) 39.6, Monocytes (%) (Auto) 11.6, Eosinophils (%) (Auto) 4.2, Basophils (%) (Auto) 0.4, Neutrophils # (Auto ) 2.09, Lymphocytes # (Auto) 1.88, Monocytes # (Auto) 0.55, Eosinophils # (Auto ) 0.20, Basophils # (Auto) 0.02 Test 08/18/17 18:37 White Blood Count 4.75 K/uL (4.8-10.8) Red Blood Count 4.22 M/uL (4.2-5.4) Hemoglobin 13.0 g/dL (12.0-16.0) Hematocrit 38.8 % (37-47) Mean Corpuscular Volume 91.9 fL (80-100) Mean Corpuscular Hemoglobin 30.8 pg (25-34) Mean Corpuscular Hemoglobin Concent 33.5 g/dl (32-36) Platelet Count 113 K/uL (130-400) Mean Platelet Volume 10.6 fL (7.4-10.4) Neutrophils (%) (Auto) 44.0 % Lymphocytes (%) (Auto) 39.6 % Monocytes (%) (Auto) 11.6 % Eosinophils (%) (Auto) 4.2 % Basophils (%) (Auto) 0.4 % Neutrophils # (Auto) 2.09 K/uL (1.4-6.5) Lymphocytes # (Auto) 1.88 K/uL (1.2-3.4) Monocytes # (Auto) 0.55 K/uL (0.11-0.59) Eosinophils # (Auto) 0.20 K/uL (0-0.5) Basophils # (Auto) 0.02 K/uL (0-0.2) RDW Standard Deviation 45.8 fL (36.4-46.3) RDW Coefficient of Variation 13.7 % (11.5-14.5) Immature Granulocyte % (Auto) 0.2 % Immature Granulocyte # (Auto) 0.01 K/uL (0.00-0.02) Labs reviewed by ED physician. ED Course 1800: Past medical records reviewed. The patient was evaluated in room C4. A complete history and physical examination was performed. 1807: Ordered Zofran Inj 4mg IV and Dilaudid Inj 1mg IV. 1815: I discussed the patient's case with Dr. Coffman, Infectious Disease. She has agreed to evaluate the patient for further management and care. 1825: Ordered Metronidazole 500mg IV and Ceftazidime 2000mg/ Dextrose 60ml @ 120 mls/hr IV. 1941: I discussed the patient's case with Dr. Hanley [facility], He has agreed to evaluate the patient for further management and care. He will admit the patient. 1946: I reevaluated the patient, who was resting. I discussed test findings and the treatment plan. She verbalized complete understanding and agreement. Medical Decision Differential diagnosis: Etiologies such as viral syndrome, otitis, pharyngitis, pneumonia, influenza, meningitis, urinary tract infection, sepsis, bacteremia, as well as others were entertained. Medication Reconcilliation Current Medication List: was personally reviewed by me Blood Pressure Screening Patient's blood pressure: Normal blood pressure Blood pressure disposition: Did not require urgent referral Consults Time Called: 1815 Consulting Physician: Dr. Coffman, Infectious Disease Returned Call: 1815 I discussed the patient's case with Dr. Coffman, Infectious Disease. She has agreed to evaluate the patient for further management and care. Additional Consults: Time Called: 1941 Consulted Physician: Chaitanya Baldwin Returned Call: 1941 Additional Comments: I discussed the patient's case with Chaitanya Baldwin, He has agreed to evaluate the patient for further management and care. He will admit the patient. Impression Primary Impression: Wound infection Scribe Attestation The scribe's documentation has been prepared under my direction and personally reviewed by me in its entirety. I confirm that the note above accurately reflects all work, treatment, procedures, and medical decision making performed by me. Departure Information Dispostion Being Evaluated By Hospitalist Referrals Noel Centeno M.D.(JAVED) (PCP) Forms HOME CARE DOCUMENTATION FORM, IMPORTANT VISIT INFORMATION, WORK / SCHOOL INSTRUCTIONS Patient Instructions [facility]
[2017-08-18 19:25] LABS: BASO % 0.4 %; BASO ABS # 0.02 K/uL (0-0.2); EOS % 4.2 %; HEMATOCRIT 38.8 % (37-47); IG# 0.01 K/uL (0.00-0.02); LYMPH % 39.6 %; LYMPH ABS # 1.88 K/uL (1.2-3.4); MEAN CELL VOLUME 91.9 fL (80-100); MEAN CORPUSCULAR HEMOGLOBIN 30.8 pg (25-34); MEAN CORPUSCULAR HGB CONC 33.5 g/dl (32-36); MEAN PLATELET VOLUME 10.6 fL (7.4-10.4); MONO % 11.6 %; MONO ABS # 0.55 K/uL (0.11-0.59); NEUT ABS # 2.09 K/uL (1.4-6.5); PLATELET COUNT 113 K/uL (130-400); RED CELL DISTRIBUTION WIDTH CV 13.7 % (11.5-14.5); RED CELL DISTRIBUTION WIDTH SD 45.8 fL (36.4-46.3); WHITE BLOOD COUNT 4.75 K/uL (4.8-10.8)
[2017-08-18 19:46] LABS: ALBUMIN 3.7 gm/dl (3.4-5.0); ALT/SGPT 22 U/L (12-78); AST/SGOT 15 U/L (15-37); BLOOD UREA NITROGEN 9 mg/dl (7-18); CARBON DIOXIDE 24 mmol/L (21-32); CREATININE 0.35 mg/dl (0.60-1.20); GLUCOSE 106 mg/dl (70-99); POTASSIUM 4.1 mmol/L (3.5-5.1); SODIUM 140 mmol/L (136-145)
[2017-08-18 19:49] LABS: ALKALINE PHOSPHATASE 68 U/L (45-117); TOTAL PROTEIN 6.7 gm/dl (6.4-8.2)
[2017-08-18] MEDS ORDERED: LORAZEPAM 0.5 MG TAB PO PRN (20:45)
[2017-08-18] MEDS ORDERED: ZOLPIDEM TARTRATE 5 MG TAB PO PRN (20:45)
--- NOTE | 2017-08-18 20:47 | History and Physical ---
History & Physical Date & Time of Service: Aug 18, 2017 at 20:47 Chief Complaint: Open Wound On Buttucks, Referred Primary Care Physician: Noel Centeno M.D.(JAVED) History of Present Illness Source: patient, family This is a 26 year old female with paraplegia with chronic lower sacral ulcer near left buttock area and has been on oral antibiotics and following with wound care. Ulcer started in April 2017 and despite oral antibiotics and wound care the ulcer is still present. Patient recently had wound vac that was started last Wednesday and stopped yesterday. Patient had outpatient wound culture from 08/11/17 which resulted in pseudomonas, Peptostreptococcus, group B Beta strep, bacteroides fragilis. Patient denied recent active pruulence from the ulcer however has had some pain and was supposed to follow up with wound care center today on 08/18/17 but due to inclement weather was told to go the emergency department. Patient afebrile and emergency room physician discussed with infectious disease service to start IV Flagyl and IV Ceftazidime. Past Medical/Surgical History Medical Problems: (1) Autonomic dysreflexia (2) Bacterial pneumonia (3) Bilateral leg pain (4) Bronchitis (5) Bronchitis (6) C4 spinal puncture (7) C6 cervical fracture (8) Catheter-associated urinary tract infection (9) Complicated urinary tract infection (10) Depression (11) Diarrhea (12) H/O decubitus ulcer (13) History of Clostridium difficile (14) History of DVT (deep vein thrombosis) (15) Hx of spinal cord injury (16) Left sided chest pain (17) Methicillin resistant staphylococcus aureus carrier (18) Methicillin resistant Staphylococcus aureus infection (19) Neurogenic bladder (20) Paraplegia (21) PVC's (premature ventricular contractions) (22) Quadriplegia (23) Quadriplegia (24) Upper back pain Surgical Problems: (1) H/O tracheostomy (2) PEG (percutaneous endoscopic gastrostomy) status (3) S/p Aport placement (4) S/P appendectomy (5) S/p bladder stone removal (6) S/p ileocecectomy and resection of ileal conduit (7) s/p robotic enterocystoplasty (8) S/P spinal fusion (9) S/P thoracentesis Family History Diabetes mellitus FH: gallbladder disease FH: heart disease FHx: lung disease Hypertension Kidney disease Kidney stones Seizures Social History Smoking Status: Former Smoker Drug Use: none Marital Status: single Housing status: lives with family Occupational Status: disabled Immunizations History of Influenza Vaccine: Yes Influenza Vaccine Date: Feb 13, 2015 History of Tetanus Vaccine?: Yes Tetanus Immunization Date: Apr 17, 2011 History of Pneumococcal: No History of Hepatitis B Vaccine: Yes Hepatitis Immunization Date: May 22, 1998 Allergies Coded Allergies: Cefepime (Verified Allergy, Severe, ANAPHYLAXIS, 06/24/17) Levofloxacin (Verified Allergy, Mild, rash, 06/24/17) Penicillins (Verified Allergy, Unknown, RASH PER MOTHER, 06/24/17) Sulfa Antibiotics (Verified Allergy, Unknown, UNKNOWN, 06/24/17) Imipenem (Verified Adverse Reaction, Severe, SEIZURE, 06/24/17) Progress note by Dr. Walker: "Seizure may have been caused by imipenem." This is not an allergy. If rechallenged, consider dosing conservatively. Vancomycin (Verified Adverse Reaction, Intermediate, RASH, 06/24/17) Home Medications Scheduled Ascorbic Acid (Cvs Vitamin C), 1,000 MG PO BID Baclofen (Baclofen), 20 MG PO QID Buspirone Hcl (Buspirone Hcl), 1 TAB PO BID Dantrolene Sodium (Dantrolene Sodium), 100 MG PO TID Docusate Sodium (Docusate Sodium), 100 MG PO BID Docusate Sodium (Enemeez Mini), 1 EA [place] HS Duloxetine HCl (Duloxetine HCl), 30 MG PO QPM Duloxetine HCl (Duloxetine HCl), 60 MG PO QAM Gabapentin (Neurontin), 600 MG PO HS Gabapentin (Neurontin), 300 MG PO BID Magnesium Oxide (Mg Supplement (Magnesium Oxide), 400 MG PO QPM Methenamine Hippurate (Methenamine Hippurate), 1 GM PO BID Mirtazapine (Remeron), 7.5 MG PO HS Oxybutynin Chloride (Ditropan), 5 MG PO QID Oxycodone/Acetaminophen 5MG/325MG (Oxycodone/Acetaminophen 5MG/325MG), 1 TABLET PO Q6H Rivaroxaban (Xarelto), 20 MG PO QAM Vitamins C & E (Vitamin C), 500 MG PO BID Scheduled PRN Fluticasone Propionate (Nasal) (Flonase Allergy Relief), 2 SPRAYS NA HS PRN for Nasal Congestion Guaifenesin Ext Rel (Mucinex Ext Rel), 1,200 MG PO Q12 PRN for Mucous Congestion Lorazepam (Ativan), 0.5 MG PO Q8 PRN for Anxiety Nystatin (Topical) (Nystatin), 1 DOSE TOP BID PRN for N Zolpidem Tartrate (Zolpidem Tartrate), 5 MG PO HS PRN for Insomnia Review of Systems Constitutional: No fever Eyes: No worsening of vision ENT: No hearing loss Respiratory: No cough, No sputum, No wheezing, No shortness of breath Cardiovascular: No chest pain, No edema, No palpitations Abdomen: No pain, No nausea, No vomiting Musculoskeletal: + problem reported (lower back pain of sacral ulcer), No joint pain Genitourinary - Female: + urinary incontinence Neurologic: + paralysis (paraplegia of lower extremotoes) Psychiatric: No substance abuse Endocrine: No fatigue Integumentary: + problem reported (pain of sacral ulcer) Physical Exam Vital Signs Date Time Temp Pulse Resp B/P (MAP) Pulse Ox O2 Delivery O2 Flow Rate FiO2 08/18/17 20:28 65 18 128/81 98 Room Air 08/18/17 18:32 100 Room Air 08/18/17 17:48 36.7 66 17 136/90 100 Room Air General Appearance: no apparent distress Head: normocephalic, atraumatic Eyes: normal inspection, EOMI, sclerae normal ENT: normal ENT inspection, hearing grossly normal, pharynx normal Neck: supple, no JVD, trachea midline Respiratory/Chest: chest non-tender, lungs clear, normal breath sounds, no respiratory distress, no accessory muscle use Cardiovascular: regular rate, rhythm, no edema, no JVD, no murmur, normal peripheral pulses Abdomen/GI: normal bowel sounds, non tender, soft, no organomegaly, no pulsatile mass Back: normal inspection, no CVA tenderness, no muscle spasm, + pertinent finding (paraplegia from waist down) Extremities/Musculoskelatal: no calf tenderness, normal capillary refill, no pedal edema, non-tender, + pertinent finding (paraplegia) Neurologic/Psych: alert, oriented x 3, + pertinent finding (paraplegia) Skin: normal color, warm/dry, + pertinent finding (scaral ulcer stage 3 to 4 of left buttock area) Diagnostics Laboratory Results Results Past 24 Hours Test 08/18/17 18:37 08/18/17 19:56 Range/Units White Blood Count 4.75 4.8-10.8 K/uL Red Blood Count 4.22 4.2-5.4 M/uL Hemoglobin 13.0 12.0-16.0 g/dL Hematocrit 38.8 37-47 % Mean Corpuscular Volume 91.9 80-100 fL Mean Corpuscular Hemoglobin 30.8 25-34 pg Mean Corpuscular Hemoglobin Concent 33.5 32-36 g/dl Platelet Count 113 130-400 K/uL Mean Platelet Volume 10.6 7.4-10.4 fL Neutrophils (%) (Auto) 44.0 % Lymphocytes (%) (Auto) 39.6 % Monocytes (%) (Auto) 11.6 % Eosinophils (%) (Auto) 4.2 % Basophils (%) (Auto) 0.4 % Neutrophils # (Auto) 2.09 1.4-6.5 K/uL Lymphocytes # (Auto) 1.88 1.2-3.4 K/uL Monocytes # (Auto) 0.55 0.11-0.59 K/uL Eosinophils # (Auto) 0.20 0-0.5 K/uL Basophils # (Auto) 0.02 0-0.2 K/uL RDW Standard Deviation 45.8 36.4-46.3 fL RDW Coefficient of Variation 13.7 11.5-14.5 % Immature Granulocyte % (Auto) 0.2 % Immature Granulocyte # (Auto) 0.01 0.00-0.02 K/uL Sodium Level 140 136-145 mmol/L Potassium Level 4.1 3.5-5.1 mmol/L Chloride Level 109 98-107 mmol/L Carbon Dioxide Level 24 21-32 mmol/L Anion Gap 7.0 3-11 mmol/L Blood Urea Nitrogen 9 7-18 mg/dl Creatinine 0.35 0.60-1.20 mg/dl Est Creatinine Clear Calc Drug Dose 246.5 ml/min Estimated GFR () > 150.0 Estimated GFR (Non- > 150.0 BUN/Creatinine Ratio 25.3 10-20 Random Glucose 106 70-99 mg/dl Calcium Level 9.0 8.5-10.1 mg/dl Total Bilirubin 0.2 0.2-1 mg/dl Direct Bilirubin < 0.1 0-0.2 mg/dl Aspartate Amino Transf (AST/SGOT) 15 15-37 U/L Alanine Aminotransferase (ALT/SGPT) 22 12-78 U/L Alkaline Phosphatase 68 45-117 U/L Total Protein 6.7 6.4-8.2 gm/dl Albumin 3.7 3.4-5.0 gm/dl Urine Color DK YELLOW Urine Appearance CLEAR CLEAR Urine pH 7.5 4.5-7.5 Urine Specific [place] 1.015 1.000-1.030 Urine Protein NEG NEG Urine Glucose (UA) NEG NEG Urine Ketones NEG NEG Urine Occult Blood NEG NEG Urine Nitrite POS NEG Urine Bilirubin NEG NEG Urine Urobilinogen NEG NEG Urine Leukocyte Esterase LARGE NEG Urine WBC (Auto) >30 0-5 /hpf Urine RBC (Auto) 0-4 0-4 /hpf Urine Hyaline Casts (Auto) 10-30 0-5 /lpf Urine Epithelial Cells (Auto) 0-5 0-5 /lpf Urine Bacteria (Auto) 2+ NEG Microbiology Results 08/18/17 Blood Culture, Received Pending 08/18/17 Blood Culture, Received Pending 08/18/17 Gram Stain, Received Pending 08/18/17 Wound Culture, Received Pending Impression Assessment and Plan Left buttock sacral ulcer stage 3 to 4 -in the past the sacral wound grew pseudomonas -was on oral antibiotics for 4 weeks -patient has left chest port for medications -received Flagyl IV 500 mg and Ceftazidime IV 2000 mg in ER -will continue Flagyl IV 500 mg as q6 hours and Ceftazidime IV 1000 mg as q 8hours -patient reports allergies to vancomycin, imipenem, levofloxacin, penicillins, sulfa drugs with side effect of rashes and reports cefepime causes anaphylaxis -Benadryl ordered prn if develops rash -follow up blood and wound cultures -infectious disease consult placed -wound care consult placed History of cervical fracture with repair / History of paraplegia /History of Neurogenic Bladder -[place] -continue methenamine hippurate to prevent UTI -continue home medications for muscle spasms -pain medication as needed, bowel regimen History of Depression -continue home antidepressants History of DVT or left lower extremity and right upper extremity continue Xarelto Full Code next of kin is mother Ann Marie [phone] Resuscitation Status VTE Prophylaxis Will order VTE Prophylaxis: Yes
[2017-08-18] MEDS ORDERED: BACLOFEN TAB 20 MG TAB PO SCH (21:00)
[2017-08-18] MEDS: OXYBUTYNIN CHLORIDE 5 MG TAB PO SCH (21:00)
[2017-08-18 21:52] VITALS: BP 145/99; PULSE 68; TEMP 36.5; O2SAT 97
[2017-08-18] MEDS: DOCUSATE SODIUM 100 MG CAP PO SCH (22:02)
[2017-08-18] MEDS: DULOXETINE (CYMBALTA) 30 MG CAP PO SCH (22:03)
[2017-08-18] MEDS: GABAPENTIN 600 MG TAB PO SCH (22:04)
[2017-08-18] MEDS: ASCORBIC ACID 500 MG TAB PO SCH (22:05)
[2017-08-18] MEDS: DANTROLENE SODIUM 25 MG CAP PO SCH (22:06)
[2017-08-18] MEDS: MAGNESIUM OXIDE 400 MG TAB PO SCH (22:07)
[2017-08-18] MEDS: MIRTAZAPINE TAB 15 MG TAB PO SCH (22:08)
[2017-08-18] MEDS: METHENAMINE HIPPURATE 1 GM TAB PO SCH (22:08)
[2017-08-18] MEDS: SOD PHOSPHATE/SOD BIPHOSPHATE ENEMA 132 ML BTL PR SCH (22:14)
[2017-08-18] MEDS ORDERED: DiphenhydrAMINE HCL 50 MG/ML VIAL IV PRN (22:15)
[2017-08-18 22:34] VITALS: BMI 20.5
[2017-08-18] MEDS: BACLOFEN TAB 20 MG TAB PO SCH (22:45)
[2017-08-19] MEDS: OXYCODONE/ACETAMINOPHEN 5-325 TAB PO PRN ×3 (00:39→15:19)
[2017-08-19] MEDS: METRONIDAZOLE / NSS 500 MG in PREMIXED NSS 100 ML IV SCH ×4 (02:27→21:26)
[2017-08-19] MEDS ORDERED: HYDROmorphone INJ 0.5 MG/0.5 ML SYR IV STA ×2 (02:41→21:16)
[2017-08-19] MEDS: CEFTAZIDIME IV 1 GM in DEXTROSE 5% ADD-VANTAGE 50ML 50 ML IV SCH ×3 (03:38→21:26)
--- NOTE | 2017-08-19 07:01 | Clinical Documentation Query ---
CLINICAL DOCUMENTATION QUERY Please send this to Dr Roe 26 year old female who presents to the Emergency Room with complaints of a persistent infected stage 3-4 sacral ulcer. A professional mooner cannot assume a pressure ulcer just from staging alone. Etiology of the Ulcer needs to be identified by provider to capture intended level of severity. In your clinical opinion is this patient being managed for: ( ) "Pressure" ulcer of sacral region, Stage 3-4. ( ) Not Agree Please clarify and document your clinical opinion in the progress notes and discharge summary. Terms such as "probable", "suspected", "likely", "questionable", "possible", or "still to be ruled out" are acceptable. IF IN AGREEMENT, YOU MUST DOCUMENT ABOVE DIAGNOSTIC STATEMENT IN DAILY PROGRESS NOTES AND DISCHARGE SUMMARY. This document is not part of the patient's record. Thank You, Rudolph Haynes RN [phone]
[2017-08-19 07:48] VITALS: BP_SYST 87; BP_SYST 98; BP_DIAS 56; BP_DIAS 64; PULSE 72; TEMP 36.5; O2SAT 98
[2017-08-19] MEDS: BACLOFEN TAB 20 MG TAB PO SCH ×4 (09:35→21:29)
[2017-08-19] MEDS: METHENAMINE HIPPURATE 1 GM TAB PO SCH ×2 (09:35→21:29)
[2017-08-19] MEDS: GABAPENTIN 300 MG CAP PO SCH ×2 (09:36→14:07)
[2017-08-19] MEDS: DULOXETINE HCL 60 MG CAP PO SCH (09:36)
[2017-08-19] MEDS: DOCUSATE SODIUM 100 MG CAP PO SCH ×2 (09:37→21:29)
[2017-08-19] MEDS: DANTROLENE SODIUM 25 MG CAP PO SCH ×3 (09:37→21:28)
[2017-08-19] MEDS: ASCORBIC ACID 500 MG TAB PO SCH ×2 (09:37→21:28)
[2017-08-19] MEDS: RIVAROXABAN 20 MG TAB PO SCH (09:38)
[2017-08-19] MEDS: OXYBUTYNIN CHLORIDE 5 MG TAB PO SCH ×4 (09:38→20:00)
--- NOTE | 2017-08-19 10:59 | Medical Consult ---
Consultation Date of Consultation: Aug 19, 2017. Attending Physician: Lee Allan M.D. Reason for Consultation: Sacral wound ulcer, antibiotic recommendations History of Present Illness 26-year-old female well known to the Infectious Disease service with history of quadriplegia, who [facility] for nonhealing left buttock ulceration. Previous cultures were positive for Staph in patient appeared to have responded well to oral clindamycin therapy. However over the last 1-2 weeks, has noted progressive worsening of the ulceration with increasing pain. Cultures more recently have grown Pseudomonas aeruginosa, peptostreptococcus, and Bacteroides. Because of difficulty with previous antibiotics and multiple allergies, as recommended the patient be admitted to start on antibiotics and repeat cultures. Patient currently on ceftazidime and metronidazole and appears to be tolerating so far. Still complaining of severe buttock pain, rated the 9/10 in intensity currently. Denies any significant fever or chills. Past Medical/Surgical History Medical Problems: (1) Bronchitis Status: Acute (2) Bronchitis Status: Acute (3) Catheter-associated urinary tract infection Status: Acute (4) Diarrhea Status: Acute (5) Hx of spinal cord injury Status: Acute (6) Left sided chest pain Status: Acute (7) Paraplegia Status: Acute (8) PVC's (premature ventricular contractions) Status: Acute (9) Upper back pain Status: Acute (10) Wound infection Status: Acute Medical Problems: (1) Autonomic dysreflexia (2) Bacterial pneumonia (3) C4 spinal puncture (4) C6 cervical fracture (5) Complicated urinary tract infection (6) Depression (7) H/O decubitus ulcer (8) History of Clostridium difficile (9) History of DVT (deep vein thrombosis) (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 (11) Methicillin resistant Staphylococcus aureus infection (12) Neurogenic bladder (13) Quadriplegia (14) Quadriplegia Surgical Problems: (1) H/O tracheostomy (2) PEG (percutaneous endoscopic gastrostomy) status (3) S/p Aport placement (4) S/P appendectomy (5) S/p bladder stone removal (6) S/p ileocecectomy and resection of ileal conduit (7) s/p robotic enterocystoplasty (8) S/P spinal fusion (9) S/P thoracentesis Family History Diabetes mellitus FH: gallbladder disease FH: heart disease FHx: lung disease Hypertension Kidney disease Kidney stones Seizures Social History Smoking Status: Unknown if Ever Smoked Drug Use: none Marital Status: single Housing Status: lives with family Occupation Status: disabled Allergies Coded Allergies: Cefepime (Verified Allergy, Severe, ANAPHYLAXIS, 06/24/17) Levofloxacin (Verified Allergy, Mild, rash, 06/24/17) Penicillins (Verified Allergy, Unknown, RASH PER MOTHER, 06/24/17) Sulfa Antibiotics (Verified Allergy, Unknown, UNKNOWN, 06/24/17) Imipenem (Verified Adverse Reaction, Severe, SEIZURE, 06/24/17) Progress note by Dr. Walker: "Seizure may have been caused by imipenem." This is not an allergy. If rechallenged, consider dosing conservatively. Vancomycin (Verified Adverse Reaction, Intermediate, RASH, 06/24/17) Current Inpatient Medications Current Inpatient Medications Medications (Trade) Dose Ordered Sig/Mila Route Start Time Stop Time Status Last Admin Dose Admin Docusate Sodium (coLACE CAP) 100 mg BID PO 08/18/17 21:00 09/17/17 20:59 08/19/17 09:37 100 MG Duloxetine HCl (Cymbalta Cap) 30 mg QPM PO 08/18/17 21:00 09/17/17 20:59 08/18/17 22:03 30 MG Duloxetine HCl (Cymbalta Cap) 60 mg QAM PO 08/19/17 08:00 09/18/17 08:59 08/19/17 09:36 60 MG Gabapentin (Neurontin Cap) 300 mg BID@0800,1400 PO 08/19/17 08:00 09/18/17 07:59 08/19/17 09:36 300 MG Gabapentin (Neurontin Tab) 600 mg HS PO 08/18/17 21:00 09/17/17 20:59 08/18/17 22:04 600 MG Lorazepam (Ativan Tab) 0.5 mg Q8 PRN PO 08/18/17 20:45 09/17/17 20:44 Magnesium Oxide (Mag-Ox Tab) 400 mg QPM PO 08/18/17 22:00 09/17/17 21:59 08/18/17 22:07 400 MG Methenamine Hippurate (Urex Tab) 1 gm BID PO 08/18/17 22:00 08/23/17 21:59 08/19/17 09:35 1 GM Mirtazapine (Remeron Tab) 7.5 mg HS PO 08/18/17 22:00 09/17/17 21:59 08/18/17 22:08 7.5 MG Oxybutynin Chloride (Ditropan Tab) 5 mg QID PO 08/18/17 21:00 09/17/17 20:59 08/19/17 09:38 5 MG Oxycodone/ Acetaminophen (Percocet 5-325mg Tab) 1 tab Q6H PRN PO 08/18/17 20:45 09/01/17 20:44 08/19/17 09:50 1 TAB Rivaroxaban (Xarelto Tab) 20 mg QAM PO 08/19/17 08:00 09/18/17 08:59 08/19/17 09:38 20 MG Zolpidem Tartrate (Ambien Tab) 5 mg HS PRN PO 08/18/17 20:45 09/17/17 20:44 Buspirone HCl (Buspar Tab) 10 mg BID PO 08/18/17 21:30 09/17/17 21:29 08/19/17 09:36 10 MG Dantrolene Sodium (Dantrium Cap) 100 mg TID PO 08/18/17 21:30 09/17/17 21:29 08/19/17 09:37 100 MG Ascorbic Acid (Vitamin C Tab) 500 mg BID PO 08/18/17 21:00 09/17/17 20:59 08/19/17 09:37 500 MG Heparin Sodium (Porcine) (Heparin 100 Unit/ml 5ml Flush) 5 ml PRN PRN IV 08/18/17 22:00 09/17/17 21:59 08/19/17 04:18 5 ML Sodium Biphosphate/ Sodium Phosphate (Fleet Enema) 132 ml HS [place] 08/18/17 22:15 09/17/17 22:14 08/18/17 22:14 132 ML Ceftazidime 1 gm/ Dextrose 50 ml @ 100 mls/hr Q8H IV 08/19/17 04:00 08/29/17 03:59 08/19/17 03:38 100 MLS/HR Metronidazole 500 mg/Prmx 100 ml @ 100 mls/hr Q6H IV 08/19/17 02:00 08/29/17 01:59 08/19/17 09:34 100 MLS/HR Diphenhydramine HCl (Benadryl Inj) 12.5 mg Q8H PRN IV 08/18/17 22:15 09/17/17 22:14 Baclofen (Lioresal Tab) 30 mg QID PO 08/19/17 08:00 09/17/17 20:59 08/19/17 09:35 30 MG Review of Systems All systems were reviewed and are negative except as per HPI Physical Exam Date Time Temp Pulse Resp B/P (MAP) Pulse Ox O2 Delivery O2 Flow Rate FiO2 08/19/17 07:48 36.5 72 16 87/56 (66) 98 Room Air 98/64 (75) 08/19/17 00:40 Room Air 08/18/17 22:34 Room Air 08/18/17 21:52 36.5 68 16 145/99 (114) 97 Room Air 08/18/17 21:07 62 18 125/79 98 08/18/17 20:28 65 18 128/81 98 Room Air 08/18/17 18:32 100 Room Air 08/18/17 17:48 36.7 66 17 136/90 100 Room Air General Appearance: WD/WN, no apparent distress, + thin Head: normocephalic, atraumatic Eyes: normal inspection, EOMI, sclerae normal ENT: normal ENT inspection, hearing grossly normal, pharynx normal Neck: supple, no adenopathy, thyroid normal, trachea midline Respiratory/Chest: chest non-tender, lungs clear, normal breath sounds, no respiratory distress Cardiovascular: regular rate, rhythm, no gallop, no murmur Abdomen/GI: normal bowel sounds, non tender, soft, no organomegaly Back: normal inspection, no CVA tenderness Extremities/Musculoskelatal: no calf tenderness, + pertinent finding ( Atrophied extremities) Neurologic/Psych: alert, oriented x 3, + pertinent finding (Quadriplegic) Skin: normal color, no rash, + pertinent finding (Left buttock ulceration) Lymphatic: no adenopathy Laboratory Results Date/Time Source Procedure Growth Status 08/18/17 19:03 Blood Blood Culture Pending Received 08/18/17 18:37 Blood Blood Culture Pending Received 08/18/17 19:56 Urine,Catheterized Urine Culture Pending Received 08/18/17 18:23 Ulcer Buttock Left Gram Stain - Final Resulted 3 18:23 Ulcer Buttock Left Wound Culture Pending Resulted Last 24 Hours Test 08/18/17 18:37 08/18/17 19:56 White Blood Count 4.75 K/uL Red Blood Count 4.22 M/uL Hemoglobin 13.0 g/dL Hematocrit 38.8 % Mean Corpuscular Volume 91.9 fL Mean Corpuscular Hemoglobin 30.8 pg Mean Corpuscular Hemoglobin Concent 33.5 g/dl Platelet Count 113 K/uL Mean Platelet Volume 10.6 fL Neutrophils (%) (Auto) 44.0 % Lymphocytes (%) (Auto) 39.6 % Monocytes (%) (Auto) 11.6 % Eosinophils (%) (Auto) 4.2 % Basophils (%) (Auto) 0.4 % Neutrophils # (Auto) 2.09 K/uL Lymphocytes # (Auto) 1.88 K/uL Monocytes # (Auto) 0.55 K/uL Eosinophils # (Auto) 0.20 K/uL Basophils # (Auto) 0.02 K/uL RDW Standard Deviation 45.8 fL RDW Coefficient of Variation 13.7 % Immature Granulocyte % (Auto) 0.2 % Immature Granulocyte # (Auto) 0.01 K/uL Sodium Level 140 mmol/L Potassium Level 4.1 mmol/L Chloride Level 109 mmol/L Carbon Dioxide Level 24 mmol/L Anion Gap 7.0 mmol/L Blood Urea Nitrogen 9 mg/dl Creatinine 0.35 mg/dl Est Creatinine Clear Calc Drug Dose 246.5 ml/min Estimated GFR () > 150.0 Estimated GFR (Non- > 150.0 BUN/Creatinine Ratio 25.3 Random Glucose 106 mg/dl Calcium Level 9.0 mg/dl Total Bilirubin 0.2 mg/dl Direct Bilirubin < 0.1 mg/dl Aspartate Amino Transf (AST/SGOT) 15 U/L Alanine Aminotransferase (ALT/SGPT) 22 U/L Alkaline Phosphatase 68 U/L Total Protein 6.7 gm/dl Albumin 3.7 gm/dl Urine Color DK YELLOW Urine Appearance CLEAR Urine pH 7.5 Urine Specific Juda 1.015 Urine Protein NEG Urine Glucose (UA) NEG Urine Ketones NEG Urine Occult Blood NEG Urine Nitrite POS Urine Bilirubin NEG Urine Urobilinogen NEG Urine Leukocyte Esterase LARGE Urine WBC (Auto) >30 /hpf Urine RBC (Auto) 0-4 /hpf Urine Hyaline Casts (Auto) 10-30 /lpf Urine Epithelial Cells (Auto) 0-5 /lpf Urine Bacteria (Auto) 2+ Assessment & Plan 26-year-old quadriplegic female with infected left buttock ulcer with Pseudomonas, Bacteroides, peptostreptococcus. Appears to be tolerating current antibiotics, and would continue pending repeat culture results. Length of IV antibiotics will be determined by clinical response. May require outpatient therapy. Will follow.
[2017-08-19 11:45] VITALS: Ht 175.3 cm; Wt 63.0 kg
[2017-08-19] MEDS: ONDANSETRON INJ 2 MG/ML 2 ML VIAL IV PRN ×2 (11:48→19:42)
[2017-08-19] MEDS ORDERED: NURSING VERBAL MED ORDER ONE (14:45)
[2017-08-19 15:43] VITALS: BP 90/52; PULSE 67; TEMP 36.9; O2SAT 98
[2017-08-19 16:00] VITALS: O2SAT 98
[2017-08-19] MEDS: DULOXETINE (CYMBALTA) 30 MG CAP PO SCH (21:29)
[2017-08-19] MEDS: MAGNESIUM OXIDE 400 MG TAB PO SCH (21:30)
[2017-08-19] MEDS: MIRTAZAPINE TAB 15 MG TAB PO SCH (21:30)
[2017-08-19] MEDS: GABAPENTIN 600 MG TAB PO SCH (21:30)
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
[2017-08-19] MEDS: SOD PHOSPHATE/SOD BIPHOSPHATE ENEMA 132 ML BTL PR SCH (22:18)
[2017-08-20 00:32] VITALS: BP 94/61; PULSE 75; TEMP 37; O2SAT 98
[2017-08-20] MEDS: METRONIDAZOLE / NSS 500 MG in PREMIXED NSS 100 ML IV SCH ×4 (02:04→19:57)
[2017-08-20] MEDS: CEFTAZIDIME IV 1 GM in DEXTROSE 5% ADD-VANTAGE 50ML 50 ML IV SCH ×3 (04:12→19:57)
--- NOTE | 2017-08-20 04:39 | Clinical Documentation Query ---
CLINICAL DOCUMENTATION QUERY 26 year old female who presents to the Emergency Room with complaints of a persistent infected stage 3-4 sacral ulcer. 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 Etiology of the Ulcer needs to be identified by provider to capture intended level of severity. In your clinical opinion is this patient being managed for: ( x ) Pressure ulcer of sacral region, Stage 3-4. ( ) Not Agree Please clarify and document your clinical opinion in the progress notes and discharge summary. Terms such as "probable", "suspected", "likely", "questionable", "possible", or "still to be ruled out" are acceptable. IF IN AGREEMENT, YOU MUST DOCUMENT ABOVE DIAGNOSTIC STATEMENT IN DAILY PROGRESS NOTES AND DISCHARGE SUMMARY. This document is not part of the patient's record. Thank You, Rudolph Haynes RN [phone]
[2017-08-20 07:50] VITALS: BP 101/68; PULSE 84; TEMP 37.3; O2SAT 96
[2017-08-20 08:24] VITALS: O2SAT 96
[2017-08-20] MEDS: ONDANSETRON INJ 2 MG/ML 2 ML VIAL IV PRN ×2 (08:57→14:21)
[2017-08-20] MEDS: DANTROLENE SODIUM 25 MG CAP PO SCH ×3 (08:59→21:10)
[2017-08-20] MEDS: OXYBUTYNIN CHLORIDE 5 MG TAB PO SCH ×4 (08:59→21:06)
[2017-08-20] MEDS: OXYCODONE/ACETAMINOPHEN 5-325 TAB PO PRN ×2 (08:59→14:22)
[2017-08-20] MEDS: GABAPENTIN 300 MG CAP PO SCH ×2 (09:00→14:19)
[2017-08-20] MEDS: ASCORBIC ACID 500 MG TAB PO SCH ×2 (09:00→21:10)
[2017-08-20] MEDS: DULOXETINE HCL 60 MG CAP PO SCH (09:00)
[2017-08-20] MEDS: DOCUSATE SODIUM 100 MG CAP PO SCH ×2 (09:00→21:08)
[2017-08-20] MEDS: BACLOFEN TAB 20 MG TAB PO SCH ×4 (09:01→21:05)
[2017-08-20] MEDS: METHENAMINE HIPPURATE 1 GM TAB PO SCH ×2 (09:01→21:12)
[2017-08-20] MEDS: RIVAROXABAN 20 MG TAB PO SCH (09:01)
[2017-08-20 15:27] VITALS: BP 97/61; PULSE 74; TEMP 36.5; O2SAT 98
[2017-08-20] MEDS: PROCHLORPERAZINE INJ 5 MG in SYRINGE 4 ML IV PRN (17:34)
[2017-08-20] MEDS ORDERED: HYDROmorphone INJ 0.5 MG/0.5 ML SYR IV SCH (21:00)
[2017-08-20] MEDS: DULOXETINE (CYMBALTA) 30 MG CAP PO SCH (21:04)
[2017-08-20] MEDS: MIRTAZAPINE TAB 15 MG TAB PO SCH (21:04)
[2017-08-20] MEDS: GABAPENTIN 600 MG TAB PO SCH (21:09)
[2017-08-20] MEDS: MAGNESIUM OXIDE 400 MG TAB PO SCH (21:11)
[2017-08-20] MEDS: SOD PHOSPHATE/SOD BIPHOSPHATE ENEMA 132 ML BTL PR SCH (21:16)
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
[2017-08-20 23:43] VITALS: BP 92/59; PULSE 56; TEMP 36.5; O2SAT 96
[2017-08-21] MEDS: METRONIDAZOLE / NSS 500 MG in PREMIXED NSS 100 ML IV SCH ×4 (02:25→20:54)
[2017-08-21] MEDS: CEFTAZIDIME IV 1 GM in DEXTROSE 5% ADD-VANTAGE 50ML 50 ML IV SCH ×3 (04:07→20:54)
[2017-08-21] MEDS: PROCHLORPERAZINE INJ 5 MG in SYRINGE 4 ML IV PRN (04:51)
[2017-08-21] MEDS: ONDANSETRON INJ 2 MG/ML 2 ML VIAL IV PRN ×2 (05:56→21:38)
[2017-08-21 07:29] LABS: HEMATOCRIT 38.2 % (37-47); HEMOGLOBIN 12.2 g/dL (12.0-16.0); MEAN CELL VOLUME 93.4 fL (80-100); MEAN CORPUSCULAR HEMOGLOBIN 29.8 pg (25-34); MEAN CORPUSCULAR HGB CONC 31.9 g/dl (32-36); MEAN PLATELET VOLUME 10.6 fL (7.4-10.4); PLATELET COUNT 108 K/uL (130-400); RED CELL DISTRIBUTION WIDTH CV 13.5 % (11.5-14.5); RED CELL DISTRIBUTION WIDTH SD 46.5 fL (36.4-46.3); WHITE BLOOD COUNT 3.69 K/uL (4.8-10.8)
[2017-08-21 07:41] VITALS: BP 98/62; PULSE 73; TEMP 37; O2SAT 98
[2017-08-21] MEDS: OXYCODONE/ACETAMINOPHEN 5-325 TAB PO PRN ×3 (07:56→23:51)
[2017-08-21] MEDS: BACLOFEN TAB 20 MG TAB PO SCH ×4 (07:56→20:52)
[2017-08-21 08:00] LABS: BLOOD UREA NITROGEN 7 mg/dl (7-18); CALCIUM 8.8 mg/dl (8.5-10.1); CARBON DIOXIDE 24 mmol/L (21-32); CREATININE 0.27 mg/dl (0.60-1.20); GLUCOSE 99 mg/dl (70-99); SODIUM 137 mmol/L (136-145)
[2017-08-21] MEDS: DANTROLENE SODIUM 25 MG CAP PO SCH ×4 (08:00→20:50)
[2017-08-21] MEDS: OXYBUTYNIN CHLORIDE 5 MG TAB PO SCH ×2 (08:00→11:41)
[2017-08-21] MEDS: ASCORBIC ACID 500 MG TAB PO SCH ×2 (08:12→20:52)
[2017-08-21] MEDS: DOCUSATE SODIUM 100 MG CAP PO SCH ×2 (08:12→20:53)
[2017-08-21] MEDS: DULOXETINE HCL 60 MG CAP PO SCH (08:12)
[2017-08-21] MEDS: METHENAMINE HIPPURATE 1 GM TAB PO SCH ×2 (08:12→20:52)
[2017-08-21] MEDS: GABAPENTIN 300 MG CAP PO SCH ×2 (08:13→14:05)
[2017-08-21] MEDS: RIVAROXABAN 20 MG TAB PO SCH (08:13)
[2017-08-21 11:55] VITALS: BP 79/46; PULSE 88
[2017-08-21 12:05] VITALS: BP 102/69; PULSE 80
[2017-08-21] MEDS ORDERED: DANTROLENE SODIUM 25 MG CAP PO PRN (13:15)
[2017-08-21 13:42] VITALS: BP 100/61; PULSE 77
[2017-08-21] MEDS ORDERED: SODIUM CHLORIDE 0.9% 1000ML 1,000 ML IV SCH (13:45)
[2017-08-21] MEDS ORDERED: OXYBUTYNIN CHLORIDE 5 MG TAB PO PRN (14:00)
[2017-08-21 15:43] VITALS: BP 100/57; PULSE 88; TEMP 36.6; O2SAT 97
[2017-08-21] MEDS: MAGNESIUM OXIDE 400 MG TAB PO SCH (20:51)
[2017-08-21] MEDS: DULOXETINE (CYMBALTA) 30 MG CAP PO SCH (20:51)
[2017-08-21] MEDS: GABAPENTIN 600 MG TAB PO SCH (20:51)
[2017-08-21] MEDS: MIRTAZAPINE TAB 15 MG TAB PO SCH (20:51)
[2017-08-21] MEDS: SOD PHOSPHATE/SOD BIPHOSPHATE ENEMA 132 ML BTL PR SCH (20:56)
[2017-08-21] MEDS: HYDROmorphone INJ 0.5 MG/0.5 ML SYR IV SCH (20:58)
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
[2017-08-21 23:02] VITALS: BP 103/67; PULSE 68; TEMP 36.9; O2SAT 98
[2017-08-22] MEDS: METRONIDAZOLE / NSS 500 MG in PREMIXED NSS 100 ML IV SCH ×4 (02:43→20:56)
[2017-08-22] MEDS: CEFTAZIDIME IV 1 GM in DEXTROSE 5% ADD-VANTAGE 50ML 50 ML IV SCH ×3 (03:50→20:56)
[2017-08-22 07:35] VITALS: BP 103/68; PULSE 77; TEMP 37; O2SAT 97
[2017-08-22] MEDS: ONDANSETRON INJ 2 MG/ML 2 ML VIAL IV PRN ×2 (08:26→16:39)
[2017-08-22] MEDS: OXYCODONE/ACETAMINOPHEN 5-325 TAB PO PRN ×2 (08:27→13:53)
[2017-08-22] MEDS: GABAPENTIN 300 MG CAP PO SCH ×2 (08:47→13:51)
[2017-08-22] MEDS: DOCUSATE SODIUM 100 MG CAP PO SCH ×2 (08:47→20:51)
[2017-08-22] MEDS: ASCORBIC ACID 500 MG TAB PO SCH ×2 (08:48→20:51)
[2017-08-22] MEDS: RIVAROXABAN 20 MG TAB PO SCH (08:48)
[2017-08-22] MEDS: DULOXETINE HCL 60 MG CAP PO SCH (08:48)
[2017-08-22] MEDS: METHENAMINE HIPPURATE 1 GM TAB PO SCH ×2 (08:48→20:55)
[2017-08-22] MEDS: DANTROLENE SODIUM 25 MG CAP PO SCH ×3 (08:49→20:54)
[2017-08-22] MEDS: BACLOFEN TAB 20 MG TAB PO SCH ×4 (08:49→20:56)
[2017-08-22] MEDS ORDERED: [UNRECOGNIZED DRUG - REMARK] (15:31)
[2017-08-22 15:51] VITALS: BP 125/93; PULSE 64; TEMP 37.1; O2SAT 96
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
[2017-08-22] MEDS: SOD PHOSPHATE/SOD BIPHOSPHATE ENEMA 132 ML BTL PR SCH (19:32)
[2017-08-22] MEDS: HYDROmorphone INJ 0.5 MG/0.5 ML SYR IV SCH (20:50)
[2017-08-22] MEDS: DULOXETINE (CYMBALTA) 30 MG CAP PO SCH (20:51)
[2017-08-22] MEDS: MAGNESIUM OXIDE 400 MG TAB PO SCH (20:52)
[2017-08-22] MEDS: OXYCODONE/ACETAMINOPHEN 7.5-325 TAB PO PRN (20:53)
[2017-08-22] MEDS: GABAPENTIN 600 MG TAB PO SCH (20:54)
[2017-08-22] MEDS: MIRTAZAPINE TAB 15 MG TAB PO SCH (20:55)
[2017-08-22 23:16] VITALS: BP 122/83; PULSE 59; TEMP 37.1; O2SAT 99
[2017-08-23] VITALS: O2SAT 99
[2017-08-23] MEDS: OXYCODONE/ACETAMINOPHEN 7.5-325 TAB PO PRN ×5 (00:51→23:14)
[2017-08-23] MEDS: METRONIDAZOLE / NSS 500 MG in PREMIXED NSS 100 ML IV SCH ×3 (00:52→13:37)
[2017-08-23] MEDS: CEFTAZIDIME IV 1 GM in DEXTROSE 5% ADD-VANTAGE 50ML 50 ML IV SCH ×3 (03:38→20:54)
[2017-08-23 07:43] VITALS: BP 120/80; PULSE 75; TEMP 36.4; O2SAT 99
[2017-08-23] MEDS: ONDANSETRON INJ 2 MG/ML 2 ML VIAL IV PRN ×2 (07:47→20:55)
[2017-08-23] MEDS: METHENAMINE HIPPURATE 1 GM TAB PO SCH ×2 (08:00→20:52)
[2017-08-23] MEDS: BACLOFEN TAB 20 MG TAB PO SCH ×4 (08:00→20:50)
[2017-08-23] MEDS: GABAPENTIN 300 MG CAP PO SCH ×2 (08:01→13:37)
[2017-08-23] MEDS: RIVAROXABAN 20 MG TAB PO SCH (08:01)
[2017-08-23] MEDS: DULOXETINE HCL 60 MG CAP PO SCH (08:01)
[2017-08-23] MEDS: DOCUSATE SODIUM 100 MG CAP PO SCH ×2 (08:01→20:52)
[2017-08-23] MEDS: ASCORBIC ACID 500 MG TAB PO SCH ×2 (08:02→20:52)
[2017-08-23] MEDS: DANTROLENE SODIUM 25 MG CAP PO SCH ×3 (08:02→20:51)
[2017-08-23 08:14] VITALS: O2SAT 99
[2017-08-23 14:42] VITALS: BP 107/74; PULSE 78; TEMP 37.1; O2SAT 98
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
[2017-08-23] MEDS: MAGNESIUM OXIDE 400 MG TAB PO SCH (20:50)
[2017-08-23] MEDS: MIRTAZAPINE TAB 15 MG TAB PO SCH (20:51)
[2017-08-23] MEDS: DULOXETINE (CYMBALTA) 30 MG CAP PO SCH (20:54)
[2017-08-23] MEDS: GABAPENTIN 600 MG TAB PO SCH (20:54)
[2017-08-23] MEDS: SOD PHOSPHATE/SOD BIPHOSPHATE ENEMA 132 ML BTL PR SCH (20:55)
[2017-08-23] MEDS: HYDROmorphone INJ 0.5 MG/0.5 ML SYR IV SCH (20:56)
[2017-08-24 00:19] VITALS: BP 91/57; PULSE 75; TEMP 37.1; O2SAT 98
[2017-08-24] MEDS: CEFTAZIDIME IV 1 GM in DEXTROSE 5% ADD-VANTAGE 50ML 50 ML IV SCH ×3 (03:48→19:33)
[2017-08-24] MEDS: DOCUSATE SODIUM 100 MG CAP PO SCH ×2 (07:31→20:41)
[2017-08-24] MEDS: GABAPENTIN 300 MG CAP PO SCH ×3 (07:31→20:41)
[2017-08-24] MEDS: ASCORBIC ACID 500 MG TAB PO SCH ×2 (07:31→20:43)
[2017-08-24] MEDS: RIVAROXABAN 20 MG TAB PO SCH (07:31)
[2017-08-24] MEDS: DULOXETINE HCL 60 MG CAP PO SCH (07:31)
[2017-08-24] MEDS: DANTROLENE SODIUM 25 MG CAP PO SCH ×3 (07:32→20:42)
[2017-08-24] MEDS: BACLOFEN TAB 20 MG TAB PO SCH ×4 (07:33→20:40)
[2017-08-24 07:45] VITALS: BP 104/69; PULSE 75; TEMP 37.1; O2SAT 97
[2017-08-24] MEDS: OXYCODONE/ACETAMINOPHEN 7.5-325 TAB PO PRN ×4 (07:45→23:35)
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
--- NOTE | 2017-08-24 11:38 | Wound Progress Note: Inpatient ---
Wound Progress Note Date of Service Aug 23, 2017. Subjective Pt evaluation today including: conversation w/ patient, physical exam, chart review Patient is seen today for follow-up evaluation of a chronic pressure ulcer to the left ischial region. Patient was recently admitted to [facility] for further evaluation and intravenous antibiotic therapy for this problem. Patient currently states she is having some minimal pain in the area. Patient denies any fever chills or night sweats. Patient denies any other systemic complaints at this time. Objective Vital Signs Date Time Temp Pulse Resp B/P (MAP) Pulse Ox O2 Delivery O2 Flow Rate FiO2 08/24/17 10:07 Room Air 08/24/17 07:45 37.1 75 18 104/69 (81) 97 Room Air 08/24/17 00:19 37.1 75 18 91/57 (68) 98 Room Air 08/24/17 00:00 Room Air 08/23/17 16:10 Room Air 08/23/17 14:42 37.1 78 18 107/74 (85) 98 Room Air Physical Exam Notes: Patient's vital signs were reviewed and found to be unremarkable patient is afebrile the wound site today measures 1.5 x 2 x 2.4 cm and the left ischial region. There is no evidence of any significant central slough active drainage or odor present no periwound erythema noted. Granulation tissue is present in the base. Minimal tenderness is noted peripherally. No fluctuance is present. Assessment and Plan Assessment: Stage III pressure ulcer left ischial region Plan: No debridement is indicated at this time. The site will be managed with silver foam wound VAC 125 mm of negative pressure wound VAC change Wednesday. If the patient is experiencing increased pain with VAC therapy we will reduce the pressure to 100 mm of negative pressure. Patient will continue to be monitored during her hospital course and followed up in the outpatient clinic upon discharge. Patient's positive culture for strep and Pseudomonas will continue to be managed by Dr. Walker.
[2017-08-24 15:05] VITALS: BP 119/83; PULSE 74; TEMP 36.9; O2SAT 98
--- NOTE | 2017-08-24 15:32 | Infectious Disease Progress Nt ---
Progress Note Date of Service Aug 24, 2017. Subjective Pt evaluation today including: conversation w/ patient, physical exam, chart review, lab review, review of studies, conversation w/ audit consultant, review of inpatient medication list Pain in area of buttock ulcer slightly better. Remains afebrile. Tolerating antibiotic without apparent difficulty. Wound care follow-up noted. All Other Systems: Reviewed and Negative Medications Current Inpatient Medications Medications (Trade) Dose Ordered Sig/Mila Route Start Time Stop Time Status Last Admin Dose Admin Docusate Sodium (coLACE CAP) 100 mg BID PO 08/18/17 21:00 09/17/17 20:59 08/24/17 07:31 100 MG Duloxetine HCl (Cymbalta Cap) 30 mg QPM PO 08/18/17 21:00 09/17/17 20:59 08/23/17 20:54 30 MG Duloxetine HCl (Cymbalta Cap) 60 mg QAM PO 08/19/17 08:00 09/18/17 08:59 08/24/17 07:31 60 MG Gabapentin (Neurontin Cap) 300 mg BID@0800,1400 PO 08/19/17 08:00 09/18/17 07:59 08/24/17 12:36 300 MG Gabapentin (Neurontin Tab) 600 mg HS PO 08/18/17 21:00 09/17/17 20:59 08/23/17 20:54 600 MG Lorazepam (Ativan Tab) 0.5 mg Q8 PRN PO 08/18/17 20:45 09/17/17 20:44 08/21/17 07:52 0.5 MG Magnesium Oxide (Mag-Ox Tab) 400 mg QPM PO 08/18/17 22:00 09/17/17 21:59 08/23/17 20:50 400 MG Mirtazapine (Remeron Tab) 7.5 mg HS PO 08/18/17 22:00 09/17/17 21:59 08/23/17 20:51 7.5 MG Rivaroxaban (Xarelto Tab) 20 mg QAM PO 08/19/17 08:00 09/18/17 08:59 08/24/17 07:31 20 MG Zolpidem Tartrate (Ambien Tab) 5 mg HS PRN PO 08/18/17 20:45 09/17/17 20:44 08/23/17 23:13 5 MG Buspirone HCl (Buspar Tab) 10 mg BID PO 08/18/17 21:30 09/17/17 21:29 08/24/17 07:31 10 MG Ascorbic Acid (Vitamin C Tab) 500 mg BID PO 08/18/17 21:00 09/17/17 20:59 08/24/17 07:31 500 MG Heparin Sodium (Porcine) (Heparin 100 Unit/ml 5ml Flush) 5 ml PRN PRN IV 08/18/17 22:00 09/17/17 21:59 08/24/17 13:33 5 ML Sodium Biphosphate/ Sodium Phosphate (Fleet Enema) 132 ml HS CO 08/18/17 22:15 09/17/17 22:14 08/23/17 20:55 132 ML Ceftazidime 1 gm/ Dextrose 50 ml @ 100 mls/hr Q8H IV 08/19/17 04:00 08/29/17 03:59 08/24/17 12:36 100 MLS/HR Diphenhydramine HCl (Benadryl Inj) 12.5 mg Q8H PRN IV 08/18/17 22:15 09/17/17 22:14 Baclofen (Lioresal Tab) 30 mg QID PO 08/19/17 08:00 09/17/17 20:59 08/24/17 12:35 30 MG Ondansetron HCl (Zofran Inj) 4 mg Q6H PRN IV 08/19/17 11:30 09/18/17 11:29 08/23/17 20:55 4 MG Prochlorperazine Edisylate 5 mg/ Syringe 5 ml @ 5 mls/min Q8H PRN IV 08/20/17 17:15 09/19/17 17:14 08/21/17 04:51 5 MLS/MIN Dantrolene Sodium (Dantrium Cap) 100 mg TID PO 08/21/17 14:00 09/17/17 21:29 08/24/17 12:35 100 MG Oxybutynin Chloride (Ditropan Tab) 5 mg QID PRN PO 08/21/17 14:00 09/17/17 20:59 Hydromorphone HCl (Dilaudid Inj) 0.5 mg HS IV 08/21/17 21:00 09/04/17 20:59 08/23/17 20:56 0.5 MG Oxycodone/ Acetaminophen (Percocet 7.5-325MG Tab) 1 tab Q4H PRN PO 08/22/17 16:00 09/05/17 15:59 08/24/17 07:45 1 TAB Objective Vital Signs Date Time Temp Pulse Resp B/P (MAP) Pulse Ox O2 Delivery O2 Flow Rate FiO2 08/24/17 15:05 36.9 74 18 119/83 (95) 98 Room Air 08/24/17 10:07 Room Air 08/24/17 07:45 37.1 75 18 104/69 (81) 97 Room Air 08/24/17 00:19 37.1 75 18 91/57 (68) 98 Room Air 08/24/17 00:00 Room Air 08/23/17 16:10 Room Air Physical Exam General Appearance: WD/WN, no apparent distress, + thin Eyes: normal inspection, EOMI, sclerae normal ENT: normal ENT inspection, hearing grossly normal, pharynx normal Neck: supple, no adenopathy, thyroid normal, trachea midline Respiratory/Chest: chest non-tender, lungs clear, normal breath sounds, no respiratory distress Cardiovascular: regular rate, rhythm, no gallop, no murmur Abdomen: normal bowel sounds, non tender, soft, no organomegaly Extremities: normal inspection, no calf tenderness, + pertinent finding ( Atrophied) Neurologic/Psychiatric: alert, oriented x 3 Skin: normal color, no rash, + pertinent finding (Buttock wound with granulation at the base, no odor) Lymphatic: no adenopathy Laboratory Results RUN DATE: 08/21/17 [facility] LAB PAGE 1 RUN TIME: 840 Specimen Inquiry PATIENT: KEVON GUAMAN LOC: [place] U # : [id number] AGE/SX: 26/ ROOM: E416 REG : 08/18/[address]: Maddison Roe DDavid : 1990 BED: 1 DIS : STATUS: ADM IN TLOC: SPEC #: [id number] MARTIN: 08/18/17 STATUS: COMP REQ #: [id number] RECD: 08/18/[address]: Servando Philippe MD SOURCE: ULCER ENTR: 08/18/17 [facility] DR: Noel Centeno M.D.(HUGH) [facility] ORDERED: SURF SERGEY CU/SMR COMMENTS: Has Specimen Been Obtained/Collected? Y Procedure Result Verified Site GRAM STAIN Final 08/19/17 RESULT FEW GRAM POSITIVE COCCI FEW WBCs SEEN NO EPITHELIAL CELLS SURFACE WOUND CULTURE Final 08/21/17-840 Organism 1 GROUP B BETA STREP QUANITY MODERATE SENS SENSITIVITY TO FOLLOW +MIXWOUND PLUS LOW COUNTS OF PROBABLE SKIN MENDEL Organism 2 PSEUDOMONAS AERUGINOSA QUANITY FEW SENS SENSITIVITY TO FOLLOW GBBS PSEUD AERG M.I.C. RX M.I.C. RX --------- ------ --------- ------ AMPICILLIN 0.12 S CEFOTAXIME <=0.25 S CEFTAZIDIME 4 S CEFTRIAXONE <=0.25 S CEFEPIME <=0.25 S 8 S CHLORAMPHENICOL 4 S IMIPENEM >8 R AZTREONAM <=4 S VANCOMYCIN 1 S PENICILLIN 0.06 S GENTAMICIN <=4 S TOBRAMYCIN <=4 S ERYTHROMYCIN >0.5 R AMIKACIN <=16 S CIPROFLOXACIN >2 R LEVOFLOXACIN >4 R CLINDAMYCIN >0.5 R PIP/TAZO <=16 S AZITHROMYCIN >2 R CONTINUED ON NEXT PAGE RUN DATE: 08/21/17 [facility] LAB PAGE 2 RUN TIME: 840 Specimen Inquiry SPEC: [id number] PATIENT: KEVON GUAMAN [id number] ( Continued) Procedure Result Verified Site SURFACE WOUND CULTURE Final (continued) 08/21/17-840 1. GROUP B BETA STREP Target Route Dose RX AB Cost M.I.C. IQ ------ ----- ------ -- ------ -------- - ------ AMPICILLIN S 0.12 CEFOTAXIME S <=0.25 CEFTRIAXONE S <=0.25 CEFEPIME S <=0.25 CHLORAMPHENICOL S 4 VANCOMYCIN S 1 PENICILLIN S 0.06 ERYTHROMYCIN R >0.5 CLINDAMYCIN R >0.5 AZITHROMYCIN R >2 2. PSEUDOMONAS AERUGINOSA Target Route Dose RX AB Cost M.I.C. IQ ------ ----- ------ -- ------ -------- - ------ CEFTAZIDIME S 4 CEFEPIME S 8 IMIPENEM R >8 AZTREONAM S <=4 GENTAMICIN S <=4 TOBRAMYCIN S <=4 AMIKACIN S <=16 CIPROFLOXACIN R >2 LEVOFLOXACIN R >4 PIP/TAZO S <=16 S = SENSITIVE I = INTERMEDIATE R = RESISTANT Assessment and Plan 26-year-old quadriplegic female with infected left buttock ulcer with Pseudomonas and group B Streptococcus. Patient to continue on ceftazidime. Will follow.
[2017-08-24 16:00] VITALS: O2SAT 98
[2017-08-24] MEDS: MIRTAZAPINE TAB 15 MG TAB PO SCH (20:42)
[2017-08-24] MEDS: DULOXETINE (CYMBALTA) 30 MG CAP PO SCH (20:43)
[2017-08-24] MEDS: GABAPENTIN 600 MG TAB PO SCH (20:44)
[2017-08-24] MEDS: MAGNESIUM OXIDE 400 MG TAB PO SCH (20:44)
[2017-08-24] MEDS: SOD PHOSPHATE/SOD BIPHOSPHATE ENEMA 132 ML BTL PR SCH (20:50)
[2017-08-24] MEDS: HYDROmorphone INJ 0.5 MG/0.5 ML SYR IV SCH (20:51)
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
[2017-08-24 23:43] VITALS: BP 90/56; PULSE 73; TEMP 36.7; O2SAT 96
[2017-08-25] MEDS: CEFTAZIDIME IV 1 GM in DEXTROSE 5% ADD-VANTAGE 50ML 50 ML IV SCH ×2 (04:03→12:22)
[2017-08-25 07:37] VITALS: BP 96/64; PULSE 68; TEMP 36.5; O2SAT 98
[2017-08-25 08:55] VITALS: O2SAT 98
[2017-08-25] MEDS: OXYCODONE/ACETAMINOPHEN 7.5-325 TAB PO PRN ×2 (09:15→13:54)
[2017-08-25] MEDS: GABAPENTIN 300 MG CAP PO SCH ×2 (09:16→12:23)
[2017-08-25] MEDS: ASCORBIC ACID 500 MG TAB PO SCH (09:17)
[2017-08-25] MEDS: DANTROLENE SODIUM 25 MG CAP PO SCH ×2 (09:17→12:23)
[2017-08-25] MEDS: DOCUSATE SODIUM 100 MG CAP PO SCH (09:17)
[2017-08-25] MEDS: BACLOFEN TAB 20 MG TAB PO SCH ×2 (09:17→12:23)
[2017-08-25] MEDS: RIVAROXABAN 20 MG TAB PO SCH (09:17)
[2017-08-25] MEDS ORDERED: [UNRECOGNIZED DRUG - CODE] IV (11:38)
[2017-08-25 12:16] VITALS: BP 96/64; PULSE 68; TEMP 36.5; O2SAT 98
[2017-08-25] MEDS: DULOXETINE HCL 60 MG CAP PO SCH (12:22)
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
[2017-08-25] MEDS ORDERED: OXYC-643 PO (15:49)
--- NOTE | 2017-08-25 15:55 | Discharge Instructions ---
Discharge Instructions Date of Service Aug 25, 2017. Admission Reason for Admission: infected skin ulcer . Discharge Discharge Diagnosis / Problem: infected skin ulcer Discharge Goals Goal(s): Decrease discomfort, Improve disease control Activity Recommendations Activity Limitations: resume your previous activity . Instructions / Follow-Up Instructions / Follow-Up APPOINTMENTS: FAMILY MEDICINE 08/30/2017 1:00 PM Anson Aguilar MD (covering for Dr. Centeno) 09/29/2017 12:20 PM Noel Centeno MD [facility] September 08 at 9:[address] Hamilton and Denise OTHER INSTRUCTIONS: Avoid sitting or lying in one position for more than 1 hour. Home health nurses will help with wound care. Seek medical attention if you have: * temperature above 101 * chest pain or trouble breathing * abdominal pain, nausea, vomiting * diarrhea, dark stools or bloody stools * any unanswered questions or concerns Call 911 if symptoms are severe. Call if you have any questions or problems. My cell # is [phone]. You can also reach a [facility] hospitalist on duty at [facility] 24 hours a day by calling [phone]. Please take good care of yourself. Maximus Beach . Current Hospital Diet Patient's current hospital diet: Regular Diet Discharge Diet Recommended Diet: Regular Diet Pending Studies Studies pending at discharge: no Medical Emergencies . Who to Call and When: Medical Emergencies: If at any time you feel your situation is an emergency, please call 911 immediately. . Non-Emergent Contact Non-Emergency issues call your: Primary Care Provider, Hospital Doctor, Specialist (Wound Care or Infectious Disease) . . "Provider Documentation" section prepared by Maximus Beach. . [place] Drug Monitoring Program Search Results: patient reviewed within database, no issues identified
[2017-08-25 16:00] VITALS: BP 95/61; PULSE 65; TEMP 36.6; O2SAT 97
== END 2017-08-25 17:35 | disposition home health service (06) | DRG 592 ==
LOC: C.EDB 17:48 → C.4E 20:43 → ENRESERV 20:53
PROVIDERS: ADMIT Hospitalist; ATTEND Hospitalist
DX: L89.153 Pressure ulcer of sacral region, stage 3 (principal); G82.20 Paraplegia, unspecified; B96.5 Pseudomonas (aeruginosa) (mallei) (pseudomallei) as the cause of diseases classified elsewhere; B95.1 Streptococcus, group B, as the cause of diseases classified elsewhere; N31.9 Neuromuscular dysfunction of bladder, unspecified; F32.9 Major depressive disorder, single episode, unspecified; R11.0 Nausea; T37.3X5A Adverse effect of other antiprotozoal drugs, initial encounter; T36.1X5A Adverse effect of cephalosporins and other beta-lactam antibiotics, initial encounter; S14.106S Unspecified injury at C6 level of cervical spinal cord, sequela; V89.2XXS Person injured in unspecified motor-vehicle accident, traffic, sequela; Z86.718 Personal history of other venous thrombosis and embolism; Z87.81 Personal history of (healed) traumatic fracture; Z87.891 Personal history of nicotine dependence; Z79.01 Long term (current) use of anticoagulants; Z79.2 Long term (current) use of antibiotics; Z79.891 Long term (current) use of opiate analgesic; Z79.899 Other long term (current) drug therapy; Z88.0 Allergy status to penicillin; Z88.1 Allergy status to other antibiotic agents; Z88.2 Allergy status to sulfonamides; Z83.3 Family history of diabetes mellitus; Z82.49 Family history of ischemic heart disease and other diseases of the circulatory system; Z83.6 Family history of other diseases of the respiratory system; Z84.1 Family history of disorders of kidney and ureter; Z83.79 Family history of other diseases of the digestive system; Z82.0 Family history of epilepsy and other diseases of the nervous system

== ENCOUNTER → 2017-10-11 | Day surgery (SDC) | payer BC, OTHER ==
[~2017-10-11] VITALS: Ht 175.3 cm; Wt 63.0 kg
[~2017-10-11] MED LIST changes: +ACETAMINOPHEN 1000 MG/100 ML IV IV ONE; +ATROPINE SULFATE 0.1 MG/ML 5ML SYR IV PRN; +BUPIVACAINE 0.5 % 5 MG/1 ML MPF 30ML VIAL ONE; +CEFAZOLIN SOD 1 GM VIAL ONE; +CLINDAMYCIN IV 900 MG in DEXTROSE 5% 50ML IV SCH; +CONRAY 60% 50 ML VIAL ONE; +EpHEDrine SULFATE INJ 50 MG/ML AMP IV PRN; +FENTANYL CITRATE INJ 50 MCG/1 ML 2 ML VIAL IV PRN; +FENTANYL CITRATE INJ 50 MCG/1 ML 2 ML VIAL ONE; +HEPARIN SOD (PORCINE) 1000 UNIT/ML 10 ML VIAL ONE; +LACTATED RINGER'S 1000ML 1,000 ML IV SCH; +LIDOCAINE HCL 1% 20 ML VIAL ONE; +LIDOCAINE HCL 2% 2 ML VIAL (20MG/ML) ONE; +MIDAZOLAM HCL 1 MG/ML 2ML VIAL ONE; +MoRPHine SULFATE 10 MG/ML CARP/VIAL IV PRN; +ONDANSETRON INJ 2 MG/ML 2 ML VIAL IV PRN; +ONDANSETRON INJ 2 MG/ML 2 ML VIAL ONE; +OXYCODONE/ACETAMINOPHEN 5-325 TAB PO PRN; +PROPOFOL IV EMULSION 10 MG/ML 20 ML VIAL ONE; +THROMBIN FOR SOLN 20000 UNIT KIT ONE; -VITACAP26 PO
[2017-10-11 08:15] VITALS: BP 120/83; PULSE 54; TEMP 36.7; O2SAT 98; Ht 175.3 cm; Wt 63.0 kg
--- NOTE | 2017-10-11 10:10 | Discharge Instructions ---
Discharge Instructions Date of Service October 11, 2017. Visit Reason for Visit: Port Catheter In Place Discharge Discharge Diagnosis / Problem: port replacement Discharge Goals Goal(s): Decrease discomfort, Improve function, Improve disease control Activity Recommendations Activity Limitations: as noted below Lifting Limitations: no more than 10 pounds (for 2 weeks) Exercise/Sports Limitations: until after follow-up appointment May Resume Sexual Activity: when tolerated Shower/Bathe: tomorrow Anesthesia . Post Anesthesia Instructions: If you have had General Anesthesia or IV Sedation: * Do not drive today. * Resume driving when surgeon permits. * Do not make important decisions or sign legal documents today. * Call surgeon for: 1. Temperature elevations greater than 101 degrees F. 2. Uncontrollable pain. 3. Excessive bleeding. 4. Persistent nausea and vomiting. 5. Medication intolerance (nausea, vomiting or rash). * For nausea and vomiting use only clear liquids such as: tea, soda, bouillon until nausea subsides, then gradually increase diet as tolerated. * If you have any concerns or questions, call your surgeon's office. If physician is unavailable and it is an emergency, call 911 or go to the nearest emergency room. . Instructions / Follow-Up Instructions / Follow-Up SPECIAL CARE INSTRUCTIONS: * Cover incisions and change daily for comfort/drainage. * Expect some swelling and bruising. Call your doctor if: * Temperature above 101 degrees * Pain not relieved by pain medicine ordered * There is increased drainage or redness from any incision * You have any unanswered questions or concerns [phone]. FOLLOW UP VISIT: If not already scheduled, please call the office for a follow-up visit. for 2 weeks- suture removal OFFICE PHONE NUMBER: Dr. Silverman Office Diet Recommendations Recommended Home Diet: resume previous diet Pending Studies Studies pending at discharge: no Medical Emergencies . Who to Call and When: Medical Emergencies: If at any time you feel your situation is an emergency, please call 911 immediately. . Non-Emergent Contact Non-Emergency issues call your: Primary Care Provider, Surgeon . . "Provider Documentation" section prepared by Christian Silverman. .
--- NOTE | 2017-10-11 11:46 | [facility] Operative Report ---
Operative Report Operative Date October 11, 2017. 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 Lynne Eye Physician Surgeon(s) NONE Estimated Blood Loss 10 ml Findings occluded Lt bach cephalic vein, fibrin sheath around catheter Specimens A: Explanted A-Port Drains None Anesthesia Type General Complication(s) none I attest to the content of the Intraoperative Record and any orders documented therein. Any exceptions are noted below.
--- NOTE | 2017-10-11 11:54 | DIAGNOSTIC IMAGING REPORT ---
CHEST 1 VIEW FRONTAL HISTORY: 26 years-old Female INFUSAPORT REMOVAL status post left subclavian Dvvdnc-f-Dxoa catheter removal COMPARISON: Chest radiograph 11/03/2016 TECHNIQUE: 27 spot fluoroscopic images of the chest were obtained utilizing 64.8 seconds fluoroscopy time FINDINGS: Left internal jugular Thlzyy-c-Wybd catheter with two hemostats noted on the initial images. Partially imaged fusion hardware of the cervical spine. Subsequent images demonstrate placement of a wire through the catheter with subsequent removal of the catheter sheath. An additional catheter is placed over the wire which is injected with contrast. Last images demonstrate partial retraction of the catheter with contrast opacification of the left jugular vein. IMPRESSION: Fluoroscopic assistance as above. Please see procedural report for further details. The above report was generated using voice recognition software. It may contain grammatical, syntax or spelling errors. Electronically signed by: Cameron Dickson M.D. 10/11/2017 11:52 AM Dictated Date/Time: 10/11/2017 11:48 AM
--- NOTE | 2017-10-11 12:29 | DIAGNOSTIC IMAGING REPORT ---
CHEST ONE VIEW PORTABLE HISTORY: 26 years-old Female attempted port placement status post removal of left subclavian Msratc-r-Jldo catheter COMPARISON: Chest radiograph 11/03/2016, spot fluoroscopic images of the chest 10/11/2017 TECHNIQUE: Portable AP view of the chest FINDINGS: Status post removal of the left subclavian Thxwpc-h-Hhtr catheter. No postprocedural pneumothorax identified. No retained foreign body. Cardiomediastinal and hilar silhouettes are within normal limits. No pleural effusion, focal airspace consolidation or overt pulmonary edema. Mild convex right curvature of the thoracic spine is unchanged. Fusion hardware of the cervical and thoracic spine is partially imaged. IMPRESSION: Status post removal of the left subclavian Ferqgo-i-Mgbd catheter without postprocedural pneumothorax identified. The above report was generated using voice recognition software. It may contain grammatical, syntax or spelling errors. Electronically signed by: Cameron Dickson M.D. 10/11/2017 12:28 PM Dictated Date/Time: 10/11/2017 12:26 PM
[2017-10-11 12:45] VITALS: BP 94/51; PULSE 97; TEMP 36.7; O2SAT 96
--- NOTE | 2017-10-11 12:53 | OPERATIVE REPORT ---
DATE OF OPERATION: 10/11/2017 NAME OF OPERATION: Port removal with venogram and fluoroscopy. PREOPERATIVE DIAGNOSIS: Dysfunctional port. 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 STAFF SURGEON: Dr. Silverman. ANESTHESIA: General LMA. FINDINGS: Patient had a fibrin sheath around the left chest port catheter which was into the subclavian vein on the left side and brachiocephalic vein on the left side. The fibrin sheath was occluded. I was able to perform venography on the left subclavian vein which showed patent proximal left subclavian vein and internal jugular vein with collateral flow and what appeared to be an occluded left brachiocephalic vein. DESCRIPTION OF PROCEDURE: Patient was brought in the operating room and placed on the operating table in supine position. A roll was placed between her shoulders, appropriate anesthetic was given. Her chest was prepped and draped in the usual fashion. She had a scar in the left upper chest with port in place. Skin and subcutaneous tissue were anesthetized using 0.5% plain Marcaine. Dissection carried down identifying the catheter, the catheter was clamped proximal and distal and then transected and then the port removed. Port was sent for routine pathology. At this point, a wire was attempted to be passed through the catheter, I was able to pass the wire to the end of the catheter and then it was unable to be passed further. I was able to remove the catheter and left the wire in place, I was still unable to pass the wire distally into the superior vena cava. At this point, I placed a dilator over the wire and then removed the wire and then I was able to perform a venogram showing an occluded fibrin sheath. Therefore, the dilator was removed. At this point, patient was placed into Trendelenburg position and then using a puncture technique, the left subclavian vein was localized. I was unable to pass the wire. I therefore obtained contrast and shot a venogram using fluoroscopy showing patent subclavian vein and jugular vein but the left brachiocephalic vein was occluded. There was collateral flow. At this point, I felt that we would stop because I was unsure whether her right deep venous system was all patent. The needle was removed, the site oversewn using 2-0 chromic suture and then the tissue reapproximated subcutaneously using 2-0 plain suture and then the skin reapproximated using 5-0 Prolene suture. Dressing applied and patient transferred to recovery room in stable condition. I attest to the content of the Intraoperative Record and any orders documented therein. Any exception s are noted below.
--- NOTE | 2017-10-11 12:58 | OPERATIVE REPORT ---
DATE OF OPERATION: 10/11/2017 PROCEDURE: During port removal and potential replacement, this was a venogram and fluoroscopy, patient was in the operating room, I was trying to remove an old port and place a new port. This required fluoroscopy and also venography of her left deep venous system in the chest. I attest to the content of the Intraoperative Record and any orders documented therein. Any exception s are noted below.
--- NOTE | 2017-10-11 13:05 | Anesthesiology Progress Note ---
Anesthesia Post Op Note Date & Time October 11, 2017 at 13:02 Vital Signs Pain Intensity: 0 Vital Signs Past 12 Hours Date Time Temp Pulse Resp B/P (MAP) Pulse Ox O2 Delivery O2 Flow Rate FiO2 10/11/17 12:45 36.7 97 18 94/51 96 Room Air 10/11/17 12:35 36.8 82 16 102/70 99 Nasal Cannula 3 10/11/17 12:20 75 16 111/78 99 Nasal Cannula 3 10/11/17 12:10 84 16 107/62 99 Nasal Cannula 3 10/11/17 12:00 89 16 109/66 99 Nasal Cannula 3 10/11/17 11:50 36.6 93 16 105/61 97 Nasal Cannula 3 10/11/17 08:15 36.7 54 16 120/83 (95) 98 Room Air Notes Mental Status: alert / awake / arousable, participated in evaluation Pt Amnestic to Procedure: Yes Nausea / Vomiting: adequately controlled Pain: adequately controlled Airway Patency, RR, SpO2: stable & adequate BP & HR: stable & adequate Hydration State: stable & adequate Anesthetic Complications: no major complications apparent Anesthetic Complications: Intraop, the patient transitioned from sinus rhythm to what appeared to be a junctional rhythm. The patient transitioned back to sinus rhythm as anesthesia was wearing off and remained in sinus rhythm throughout her time in phase 1 recovery. Patient remained hemodynamically stable throughout. No other apparent complications.
[2017-10-11 13:13] VITALS: BP 114/69; PULSE 84; O2SAT 97
[2017-10-11 13:39] VITALS: BP 114/69; PULSE 82; TEMP 36.6; O2SAT 97
== END | disposition home or self-care (01) ==
LOC: C.ACU 07:53
PROVIDERS: ATTEND Surgery
DX: T82.598A Other mechanical complication of other cardiac and vascular devices and implants, initial encounter (principal); I82.290 Acute embolism and thrombosis of other thoracic veins; Y83.1 Surgical operation with implant of artificial internal device as the cause of abnormal reaction of the patient, or of later complication, without mention of misadventure at the time of the procedure; I87.8 Other specified disorders of veins; Z87.891 Personal history of nicotine dependence; G82.50 Quadriplegia, unspecified; Z88.0 Allergy status to penicillin; Z88.1 Allergy status to other antibiotic agents; Z88.2 Allergy status to sulfonamides; Q23.8 Other congenital malformations of aortic and mitral valves; Z79.01 Long term (current) use of anticoagulants; Z98.890 Other specified postprocedural states; Z79.899 Other long term (current) drug therapy; Z86.718 Personal history of other venous thrombosis and embolism

== ENCOUNTER → 2017-12-16 | Outpatient (CLI) | payer BC, OTHER ==
[~2017-12-16] MED LIST changes: -ACETAMINOPHEN 1000 MG/100 ML IV IV ONE; -ATROPINE SULFATE 0.1 MG/ML 5ML SYR IV PRN; -BUPIVACAINE 0.5 % 5 MG/1 ML MPF 30ML VIAL ONE; -CEFAZOLIN SOD 1 GM VIAL ONE; +CEFD300C2 PO; -CLINDAMYCIN IV 900 MG in DEXTROSE 5% 50ML IV SCH; -CONRAY 60% 50 ML VIAL ONE; -EpHEDrine SULFATE INJ 50 MG/ML AMP IV PRN; -FENTANYL CITRATE INJ 50 MCG/1 ML 2 ML VIAL IV PRN; -FENTANYL CITRATE INJ 50 MCG/1 ML 2 ML VIAL ONE; -HEPARIN SOD (PORCINE) 1000 UNIT/ML 10 ML VIAL ONE; -LACTATED RINGER'S 1000ML 1,000 ML IV SCH; -LIDOCAINE HCL 1% 20 ML VIAL ONE; -LIDOCAINE HCL 2% 2 ML VIAL (20MG/ML) ONE; +METR-162 PO; +METR-163 PO; -MIDAZOLAM HCL 1 MG/ML 2ML VIAL ONE; -MoRPHine SULFATE 10 MG/ML CARP/VIAL IV PRN; -ONDANSETRON INJ 2 MG/ML 2 ML VIAL IV PRN; -ONDANSETRON INJ 2 MG/ML 2 ML VIAL ONE; -OXYCODONE/ACETAMINOPHEN 5-325 TAB PO PRN; -PROPOFOL IV EMULSION 10 MG/ML 20 ML VIAL ONE; -THROMBIN FOR SOLN 20000 UNIT KIT ONE; +[UNRECOGNIZED DRUG - CODE] PO; -[UNRECOGNIZED DRUG - CODE] PO
--- NOTE | 2017-12-16 16:02 | DIAGNOSTIC IMAGING REPORT ---
PELVIS 1 OR 2 VIEW ROUTINE CLINICAL HISTORY: STAGE III ULCER altered COMPARISON: 10/23/2017 DISCUSSION: The bones and joint spaces appear intact. There is no evidence of fracture, dislocation or bony disease. There is no evidence for soft tissue swelling. IMPRESSION: Negative study. No change from the prior exam. The above report was generated using voice recognition software. It may contain grammatical, syntax or spelling errors. Electronically signed by: Zain Real M.D. 12/16/2017 4:01 PM Dictated Date/Time: 12/16/2017 4:00 PM
== END | disposition home or self-care (01) ==
LOC: C.RAD 15:31
PROVIDERS: ATTEND Emergency Medicine
DX: L89.323 Pressure ulcer of left buttock, stage 3 (principal)

== ENCOUNTER 2018-07-13 09:51 | Inpatient (IN) ==
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
[~2018-07-13 09:51] MED LIST changes: -BUSP-8 PO; -CEFD300C2 PO; -CLC100 PO; -CYM30 PO; -CYM60 PO; -DANT100C PO; -DOCUENE PR; -DTR/5 PO; -FLUT0.15; -GABA-113 PO; -GABA600T PO; -GFNSR600 PO; -LORA-741 PO; +LR 15ML/HR IV SCH; -LRS20 PO; -MAGN400T7 PO; -METH-1305 PO; -METR-162 PO; -METR-163 PO; -MIRT15TA3 PO; -NYST100033 TOP; -OXYC-643 PO; -XRL20 PO; -ZOLP5TAB6 PO; -[UNRECOGNIZED DRUG - CODE] PO
[2018-07-13] MEDS ORDERED: MIDAZOLAM HCL 1 MG/ML 2ML VIAL ONE (11:27)
[2018-07-13] MEDS ORDERED: fentaNYL citrate 100 MCG/2 ML VIAL ONE (11:27)
[2018-07-13] MEDS ORDERED: LIDOCAINE HCL 2% 2 ML VIAL/AMP(20MG/ML) INFIL ONE (11:49)
[2018-07-13] MEDS ORDERED: PROPOFOL IV EMULSION 10 MG/ML 20 ML VIAL IV ONE (11:49)
[2018-07-13] MEDS ORDERED: LIDOCAINE/EPINEPHRINE 1% 20 ML VIAL ONE (11:51)
[2018-07-13] MEDS ORDERED: METHYLENE BLUE 0.5% 10 ML VIAL ONE (11:51)
[2018-07-13] MEDS ORDERED: BACITRACIN INJ 50,000 UNIT VIAL ONE (11:52)
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
[2018-07-13] MEDS ORDERED: ATROPINE SULFATE 0.1 MG/ML 10ML SYR IV PRN (12:20)
[2018-07-13] MEDS ORDERED: HYDROmorphone INJ 2 MG/ML SYR/VIAL IV PRN (12:20)
[2018-07-13] MEDS ORDERED: ePHEDrine sulfate 50 MG/ML AMP IV PRN (12:20)
[2018-07-13] MEDS ORDERED: ONDANSETRON INJ 2 MG/ML 2 ML VIAL IV PRN ×2 (12:20→17:08)
[2018-07-13] MEDS ORDERED: BUPIVACAINE 0.25% 30 ML VIAL ONE (13:15)
[2018-07-13] MEDS ORDERED: GELATIN SPONGE SZ 100 ONE (13:15)
[2018-07-13] MEDS ORDERED: THROMBIN FOR SOLN 20000 UNIT KIT ONE (13:16)
[2018-07-13] MEDS ORDERED: CEFAZOLIN 250 MG/ML 1 GM VIAL ONE (13:27)
[2018-07-13] MEDS ORDERED: DiphenhydrAMINE HCL 50 MG/ML VIAL ONE (13:27)
--- NOTE | 2018-07-13 15:08 | Post Operative Brief Note ---
Immediate Post Op Note v1 Date of Surgery July 13, 2018 Pre & Post Diagnosis Operation Date: 07/13/18 11:50 Pre-Op Diagnosis: Left Ischial Stage IV Pressure Ulcer Post-Op Diagnosis: Left Ischial Stage IV Pressure Ulcer Procedure Operation Date: 07/13/18 11:50 Actual Procedures p Left Ischial Ulcer Debridement and Hamstring Flap Closure(Left) - Roz Summers MD Surgeon Roz Summers MD Laminator No Dennison PA-C Estimated Blood Loss 10 Findings Consistent with Post-Op Diagnosis Drains Bonilla Catheter (present upon arrival to OR) and Caleb-Russo Drain (X2 15 INDONESIAN ROUND)
[2018-07-13] MEDS: fentaNYL citrate 100 MCG/2 ML VIAL IV PRN ×2 (15:48→16:04)
[2018-07-13] MEDS ORDERED: LORazepam 1 MG/2 ML VIAL IV STA (15:55)
[2018-07-13] MEDS ORDERED: LORazepam 2 MG/4 ML VIAL ONE (15:55)
--- NOTE | 2018-07-13 16:11 | Operative Report ---
Post Operative Report Pre & Post Diagnosis Operation Date: 07/13/18 11:50 Pre-Op Diagnosis: Left Ischial Stage IV Pressure Ulcer Post-Op Diagnosis: Left Ischial Stage IV Pressure Ulcer Procedure Operation Date: 07/13/18 11:50 Actual Procedures p Left Ischial Ulcer Debridement and Hamstring Flap Closure(Left) - Roz Summers MD Surgeon Roz Summers MD Lead Bi Developer No Dennison PA-C Estimated Blood Loss 10 Findings Consistent with Post-Op Diagnosis Specimens Bone and tissue to pathology, Bone and tissue cultures to lab Drains MANJIT x2 Anesthesia Type General Complications none Indications Patient is a 27-year-old incomplete quadriplegic patient who has been following at the wound [facility] for about 4 months about 4 months ago, I took her to the operating room to debride a stage IV left ischial pressure sore with osteomyelitis. At that time, we elected debridement and placement of wound VAC. Have been following at the wound care [place] since that time, and while there has been a reduction in wound volume, there is a persistent sinus tract, with worsening pain described by the patient. Last [facility] center measurements were 0.5 x 0.3 cm, wound depth 1.3 cm, 2 cm of tunneling at 11:00, wound edges completely epithelialized to the base of the wound forming a sinus tract. Description of Procedure Patient is a 27-year-old female seen at the wound care [place] with a nonhealing stage IV ischial ulcer. She has had previous excisional debridement and placement of wound VAC times 4 months. We discussed whether to proceed with excisional debridement and primary closure versus possible flap closure. This was discussed in the preoperative holding area, and patient stated she would leave it up to my judgment as to whether to perform flap closure versus primary closure. Of note, she had a previous left ischial ulcer nearby which had healed. Description of Procedure The risks benefits and alternatives of procedure were explained to the patient agreed and signed consent. She was identified and marked in the preoperative holding area. She is brought to the operating room where she was standard general anesthesia and positioned in a prone/jacknife position. Surgical site was prepped and draped sterilely. A timeout procedure was performed. Methylene blue was instilled into the wound to ted the extent of the wound tunnel. Should be noted upon placement of an angiocatheter to infiltrate methylene blue, there is actually about a 4 cm tunnel noted. 1% lidocaine with epinephrine was used to anesthetize the wound edges. 15 blade scalpel was used to make an elliptical incision incision around the left ischial wound as the wound tract was significantly epithelialized. An Allis clamp and 15 blade scalpel were used to perform excisional debridement of the entire pseudo-bursa and ulcer and all areas stained with methylene blue. This included skin, soft tissue, underlying muscle and a 4 cm tunnel at the 11 o'clock position and ischial bone which was noted at the base of the wound. As there was an apparent point, an osteotome was used to perform ostectomy. An osteotome was then used to obtain a small shave of bone forbone culture. Bone cortex appeared solid. Tissue and bone were sent for pathology and culture. Wound was extensively irrigated using a pulse enterostomal therapy nurse with saline and bacitracin. Antibiotics were dosed after obtaining tissue and bone cultures. Hemostasis was achieved with a combination of electrocautery, Gelfoam, and thrombin. Following debridement, there was a wound cavity measuring 5 x 3 cm with exposed ischium at the wound base. Adjacent to this was atrophic tissue from her prior healed ischial wound. Given the broad extent of exposed bone at the wound base and size of the wound, I felt primary closure would not be a mart option and therefore elected to proceed with VY hamstring flap from the left posterior thigh. Base of the flap was marked along the gluteal fold and incorporated the wound bed. Flap was marked distally to about 5 cm proximal to the knee flexion crease. Semimembranosus, semitendinosus, and biceps femoris were divided from the ischial tuberosity using electrocautery to allow for advancement. 15 blade scalpel was used to make the skin incisions and the incisions were deepened using electrocautery down to muscle fascia. Fascia was divided and the hamstring muscles were able to be identified. Semimembranosus, semitendinosus, and biceps of Rigo were divided using Darlene clamps and electrocautery. This allowed for significant advancement of the flap. Hemostasis was achieved with electrocautery. Prior to wound closure, the wound bed was reassessed for any evidence of bleeding, Gelfoam was removed, and I placed 2 On-Q pump catheters in the wound bed with an exit site of the left hip. I then placed 215 [place] Caleb-Russo drains, one medially, and one laterally within the wound bed and exiting at the posterior knee. Flap was inset into the defect using 2-0 Vicryl suture to suture the hamstring muscles to the gluteus zane muscle to close down space. Multiple sutures were placed. Subcutaneous tissue and deep dermis were closed using 2-0 Vicryl interrupted sutures at the point of flap inset. Donor site was closed using 2-0 Vicryl deep dermal interrupted sutures, 2-0 PDO running Quill suture in the superficial dermal layer. Superficial dermis at the flap inset site was reapproximated using 3-0 PDS interrupted dermal sutures, skin was reapproximated using 2-0 nylon interrupted vertical mattress sutures. Drains were sutured into place using nylon sutures. Dermabond prineo was applied to all incisions. Xeroform was used to dress the drain sites. Dry dressings and Tegaderm were used to dress the On-Q pump catheters and the wound, leaving the central portion of the flap open for inspection. Procedure was tolerated well. Estimated blood loss 10 cc. She was transferred onto a [place] bed and to the recovery room in satisfactory condition. No Dennison PA-C was present and scrubbed throughout the entire procedure, was instrumental in assisting in retraction and simultaneous wound closure. I attest to the content of the Intraoperative Record and any orders documented therein. Any exceptions are noted below.
--- NOTE | 2018-07-13 17:05 | Anesthesiology Progress Note ---
Date of Service July 13, 2018 Anesthesia Post Procedure Vital Signs Vital Signs: Temp Pulse Pulse Resp BP BP Pulse Ox 07/13/18 16:45 64 14 119/74 99 07/13/18 16:30 70 16 110/52 L 99 07/13/18 16:20 36.2 C L 71 20 121/69 99 07/13/18 16:10 59 L 13 123/81 100 07/13/18 16:00 77 15 131/88 99 07/13/18 15:50 88 20 134/92 100 07/13/18 15:40 70 16 135/88 100 07/13/18 15:30 79 16 140/74 100 07/13/18 15:20 36.2 C L 75 16 125/86 100 07/13/18 10:28 36.9 C 66 18 95/68 L 99 Pain Intensity Left Buttock: Pain Intensity: 0 Notes Mental Status: alert / awake / arousable Patient Amnestic to Procedure: Yes Nausea / Vomiting: adequately controlled Pain: adequately controlled Airway Patency, RR, SpO2: stable & adequate BP & HR: stable & adequate Hydration State: stable & adequate Anesthetic Complications: no major complications apparent
[2018-07-13] MEDS ORDERED: OXYCODONE/ACETAMINOPHEN 5mg/325mg TAB PO PRN ×2 (17:08)
[2018-07-13] MEDS ORDERED: OXAZEPAM 10 MG CAPSULE PO PRN (17:08)
[2018-07-13] MEDS ORDERED: ACETAMINOPHEN 325 MG TAB PO PRN (17:08)
[2018-07-13] MEDS ORDERED: ZOLPIDEM TARTRATE 5 MG TAB PO PRN (17:08)
[2018-07-13] MEDS ORDERED: OXYBUTYNIN CHLORIDE 5 MG TAB PO PRN (17:08)
[2018-07-13] MEDS ORDERED: MoRPHine SULFATE 4 MG/ML 1 ML CARP\\VIAL IV PRN (17:08)
[2018-07-13] MEDS ORDERED: DiphenhydrAMINE HCL 50 MG/ML VIAL IV PRN (17:08)
[2018-07-13] MEDS ORDERED: D5W AND 1/2NSS + 20MEQ KCL 20 MEQ/1,000 ML BAG IV SCH (18:00)
[2018-07-13] MEDS: BACLOFEN 20 MG TAB PO SCH ×2 (18:53→20:10)
[2018-07-13] MEDS: OXYCODONE/ACETAMINOPHEN 5mg/325mg TAB PO PRN (20:04)
[2018-07-13] MEDS: DOCUSATE SODIUM 100 MG CAP PO SCH (20:05)
[2018-07-13] MEDS: MIRTAZAPINE TAB 15 MG TAB PO SCH (20:06)
[2018-07-13] MEDS: guaiFENesin 600 MG TABCR PO SCH (20:07)
[2018-07-13] MEDS: ASCORBIC ACID 500 MG TAB PO SCH (20:08)
[2018-07-13] MEDS: MAGNESIUM OXIDE 400 MG TAB PO SCH (20:08)
[2018-07-13] MEDS: DANTROLENE SODIUM 25 MG CAP PO SCH (20:09)
[2018-07-13] MEDS ORDERED: NON-FORMULARY MEDICATION (Docusate Sodium [Docusate Sodium] 100 MG) PR SCH (21:00)
[2018-07-13] MEDS ORDERED: GABAPENTIN 600 MG TAB PO SCH (21:00)
[2018-07-13] MEDS: MoRPHine SULFATE 4 MG/ML 1 ML CARP\\VIAL IV PRN ×2 (21:40→23:00)
[2018-07-13] MEDS: CEFAZOLIN 2000MG 2,000 MG/15 ML SYR IV SCH (21:41)
[2018-07-13] MEDS ORDERED: HEPARIN 100 UNIT/ML 5ML FLUSH ONE (21:49)
[2018-07-14] MEDS: OXYCODONE/ACETAMINOPHEN 5mg/325mg TAB PO PRN ×4 (01:40→19:34)
[2018-07-14] MEDS: MoRPHine SULFATE 4 MG/ML 1 ML CARP\\VIAL IV PRN ×5 (04:03→21:28)
[2018-07-14] MEDS: CEFAZOLIN 2000MG 2,000 MG/15 ML SYR IV SCH (05:42)
[2018-07-14] MEDS: ASCORBIC ACID 500 MG TAB PO SCH ×2 (09:06→21:31)
[2018-07-14] MEDS: DOCUSATE SODIUM 100 MG CAP PO SCH ×2 (09:07→21:33)
[2018-07-14] MEDS: BACLOFEN 20 MG TAB PO SCH ×4 (09:07→21:29)
[2018-07-14] MEDS: MULTIVITAMIN TAB PO SCH (09:08)
[2018-07-14] MEDS: guaiFENesin 600 MG TABCR PO SCH ×2 (09:08→21:30)
[2018-07-14] MEDS: DULOXETINE HCL 60 MG CAP PO SCH (09:08)
[2018-07-14] MEDS: DANTROLENE SODIUM 25 MG CAP PO SCH ×3 (09:09→21:31)
[2018-07-14] MEDS: GABAPENTIN 600 MG TAB PO SCH ×3 (09:52→21:30)
--- NOTE | 2018-07-14 10:25 | Anesthesiology Progress Note ---
Date of Service July 14, 2018 Anesthesia Post Procedure Vital Signs Vital Signs: Temp Pulse Pulse Resp BP BP Pulse Ox 07/14/18 07:35 36.8 C 67 14 94/42 L 97 07/14/18 04:20 36.8 C 67 16 95/58 L 96 07/14/18 00:15 36.8 C 66 18 92/57 L 98 07/13/18 20:55 36.7 C 74 17 103/63 98 07/13/18 19:55 36.6 C 71 18 93/56 L 96 07/13/18 18:11 36.6 C 70 17 117/75 100 07/13/18 17:25 36.5 C 66 18 101/64 100 07/13/18 16:55 36.9 C 70 14 113/72 99 07/13/18 16:45 64 14 119/74 99 07/13/18 16:30 70 16 110/52 L 99 07/13/18 16:20 36.2 C L 71 20 121/69 99 07/13/18 16:10 59 L 13 123/81 100 07/13/18 16:00 77 15 131/88 99 07/13/18 15:50 88 20 134/92 100 07/13/18 15:40 70 16 135/88 100 07/13/18 15:30 79 16 140/74 100 07/13/18 15:20 36.2 C L 75 16 125/86 100 07/13/18 10:28 36.9 C 66 18 95/68 L 99 Pulse Ox 07/14/18 07:35 07/14/18 04:20 07/14/18 00:15 07/13/18 20:55 07/13/18 19:55 07/13/18 18:11 07/13/18 17:25 07/13/18 16:55 99 07/13/18 16:45 07/13/18 16:30 07/13/18 16:20 07/13/18 16:10 07/13/18 16:00 07/13/18 15:50 07/13/18 15:40 07/13/18 15:30 07/13/18 15:20 07/13/18 10:28 Notes Mental Status: alert / awake / arousable Patient Amnestic to Procedure: Yes Nausea / Vomiting: adequately controlled Pain: adequately controlled Airway Patency, RR, SpO2: stable & adequate BP & HR: stable & adequate Hydration State: stable & adequate Anesthetic Complications: no major complications apparent and Pt Satisfied with anesthetic care
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
[2018-07-14] MEDS ORDERED: DAPTOmycin 500 MG VIAL IV SCH (11:45)
--- NOTE | 2018-07-14 12:04 | Surgery Progress Note ---
Date of Service July 14, 2018 Assessment & Plan (1) Quadriplegia: Patient to stay for continued observation and optimization. Case management consulted to aid in transportation home and ensuring home nursing is in place. ID consulted to decide IV abx coverage. Patient's Oncu pump was unclamped and will monitor for return of metallic taste. Reviewed importance of laying flat in bed and keeping affected limb straight. Patient to be seen later by Dr. Summers. Supervising Physician Co-Signing Physician Notes I saw and examined this patient this morning around 9 AM. Agree with No Dennison's exam, assessment, plan. Flap appears to be viable at this time. She should be maintained on a Clinitron bed. She was seen by infectious disease, they have started her on intravenous daptomycin pending intraoperative cultures. I did discuss discharge planning with the patient, and she is agreeable to going to [facility] facility for 1-2 weeks to assist in recuperation as this will be challenging to manage this flap at home. On-Q pump was restarted today and patient is advised to contact nursing staff with any potential side effects. Questions were answered. Subjective Patient is s/p hamstring V-Y advancement flap for ischial ulcer. She reported metallic taste in her mouth last night so Oncu pump was clamped. She has no recollection of this today and reports no metallic taste. She does complain of pain. Physical Exam 2 Vital Signs (Past 24 Hours): Last Vital Signs Temp 36.8 C 07/14/18 07:35 Pulse 67 07/14/18 07:35 Resp 14 07/14/18 07:35 BP 94/42 L 07/14/18 07:35 Pulse Ox 97 07/14/18 07:35 Physical Exam: drains with scant bloody and serous output Constitutional: no acute distress Skin: + incision (flap evaluated through dressings and appears healthy)
[2018-07-14] MEDS: DAPTOmycin 350 MG in SYRINGE 0 ML IV SCH (13:31)
[2018-07-14] MEDS: DULOXETINE HCL 30 MG CAP PO SCH (15:50)
[2018-07-14] MEDS: MAGNESIUM OXIDE 400 MG TAB PO SCH (21:30)
[2018-07-14] MEDS: MIRTAZAPINE TAB 15 MG TAB PO SCH (21:33)
[2018-07-15] MEDS: MoRPHine SULFATE 4 MG/ML 1 ML CARP\\VIAL IV PRN ×3 (00:27→15:22)
[2018-07-15 05:57] LABS: Hematocrit (blood only) 32.5 % (37-47); Hemoglobin 10.6 g/dL (12.0-16.0); Mean Corpuscular Hgb Conc 32.6 g/dL (32-36); Mean Corpuscular Volume 91.5 fL (80-100); RDW Coefficient of Variation 14.6 % (11.5-14.5); RDW Standard Deviation 49.4 fL (36.4-46.3); Red Blood Count 3.55 M/uL (4.2-5.4); White Blood Count 4.57 K/uL (4.8-10.8)
[2018-07-15 06:13] LABS: Mean Platelet Volume 10.6 fL (7.4-10.4); Platelet Count 86 K/uL (130-400)
[2018-07-15 06:14] LABS: Basophils # (auto) 0.01 K/uL (0-0.2); Basophils % (auto) 0.2 %; Eosinophils # (auto) 0.22 K/uL (0-0.5); Eosinophils % (auto) 4.8 %; Immature Granulocytes # (auto) 0.01 K/uL (0.00-0.02); Immature Granulocytes % (auto) 0.2 %; Lymphocytes # (auto) 2.39 K/uL (1.2-3.4); Lymphocytes % (auto) 52.3 %; Monocytes % (auto) 10.9 %; Neutrophils # (auto) 1.44 K/uL (1.4-6.5); Neutrophils % (auto) 31.6 %; Platelet Estimate Decreased (Normal)
[2018-07-15 06:25] LABS: INR 1.1 (0.9-1.1); Partial Thromboplastin Ratio 1.3; Partial Thromboplastin Time 33.3 Seconds (21.0-31.0); Prothrombin Time 10.7 Seconds (9.0-12.0)
[2018-07-15 06:26] LABS: BUN Creatinine Ratio 17.4 (10-20); Blood Urea Nitrogen 5 mg/dl (7-18); Carbon Dioxide 30 mmol/L (21-32); Chloride 109 mmol/L (98-107); Creatinine Clr Calc Pharmacy 248.9 ml/min; Est GFR (African American) > 150.0; Est GFR (Non-African American) > 150.0; Glucose 92 mg/dl (70-99); Potassium 3.7 mmol/L (3.5-5.1); Sodium 141 mmol/L (136-145)
[2018-07-15] MEDS: BACLOFEN 20 MG TAB PO SCH ×4 (08:29→22:02)
[2018-07-15] MEDS: guaiFENesin 600 MG TABCR PO SCH ×2 (08:29→22:02)
[2018-07-15] MEDS: DANTROLENE SODIUM 25 MG CAP PO SCH ×3 (08:30→22:04)
[2018-07-15] MEDS: GABAPENTIN 600 MG TAB PO SCH ×3 (08:30→22:04)
[2018-07-15] MEDS: ASCORBIC ACID 500 MG TAB PO SCH ×2 (08:30→22:02)
[2018-07-15] MEDS: DULOXETINE HCL 60 MG CAP PO SCH (08:31)
[2018-07-15] MEDS: MULTIVITAMIN TAB PO SCH (08:31)
[2018-07-15] MEDS: DOCUSATE SODIUM 100 MG CAP PO SCH ×2 (08:33→22:02)
[2018-07-15] MEDS: OXYCODONE/ACETAMINOPHEN 5mg/325mg TAB PO PRN ×3 (09:19→20:25)
[2018-07-15] MEDS: DAPTOmycin 350 MG in SYRINGE 0 ML IV SCH (13:13)
--- NOTE | 2018-07-15 15:18 | Surgery Progress Note ---
Date of Service July 15, 2018 Assessment & Plan (1) Quadriplegia: Patient to stay for continued observation and optimization. Case management consulted to aid in transportation home and ensuring home nursing is in place. Patient is planning on going to [facility] following evaluation by Dr. Phoenix. ID has started patient on daptomycin. Anticipate discharge to SNF tomorrow. Supervising Physician Co-Signing Physician Notes I personally saw and examined this patient. Flap is pink and viable, no bleeding, minimal drainage from JPs. Final cultures still pending. currently on Daptomycin per ID pending cx. Plan is for [facility] vs. SNF. Ok for transfer as soon as tomorrow. Patient must remain on Clinitron or Kin[place] type bed, elevation of HOB no more than 15 degrees, may not be out of bed or flex left knee or hip. Soap and water only to wound starting 07/16, no dressings required, change MANJIT dressing daily and remove when <10 cc/24 hours on two consecutive days. [facility]. Subjective Patient is s/p hamstring V-Y advancement flap for ischial ulcer. No reported side-effects from On-Q pump. She does complain of pain when repositioned. She has not had a bowel movement. Physical Exam 2 Vital Signs (Past 24 Hours): Last Vital Signs Temp 37.1 C 07/15/18 15:11 Pulse 71 07/15/18 15:11 Resp 17 07/15/18 15:11 BP 110/72 07/15/18 15:11 Pulse Ox 97 07/15/18 15:11 Skin: + incision (dressings removed. flap healthy and viable. drains with serous/marcaine output)
[2018-07-15] MEDS: DULOXETINE HCL 30 MG CAP PO SCH (16:15)
--- NOTE | 2018-07-15 17:57 | Infectious Disease Progress Nt ---
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 Pending operative cultures, patient will be started on IV daptomycin. Will likely require prolonged IV antibiotic therapy. Await final culture results. Will follow. (2) Osteomyelitis of pelvic region: Subjective Patient seen in follow-up for nonhealing ischial decubitus. Pain relatively well controlled. Remains afebrile. Cultures growing Staph. Review of Systems All systems reviewed & are unremarkable except as noted in HPI & below Physical Exam 2 Vital Signs (Past 24 Hours): Last Vital Signs Temp 37.1 C 07/15/18 15:11 Pulse 71 07/15/18 15:11 Resp 17 07/15/18 15:11 BP 110/72 07/15/18 15:11 Pulse Ox 97 07/15/18 15:11 Constitutional: WD/WN, vitals as above comfortable; no acute distress Eyes: PERRL, conjunctivae normal, anicteric sclerae ENMT: external ear and nose normal, oropharynx normal Neck: trachea midline, no thyromegaly neck nontender Respiratory: normal respiratory effort, lungs clear to auscultation normal percussion; no respiratory distress Cardiovascular: Rate/Rhythm: regular rate and regular rhythm Heart Sounds: normal S1 and normal S2; no gallop, no murmur and no cardiac rub Gastrointestinal (Abdomen): normal bowel sounds, soft, nontender, no hepatosplenomegaly Musculoskeletal: Head/Neck/Chest: normocephalic and head atraumatic Atrophied extremities Skin: no rashes, warm and dry Surgical dressing intact Neurologic: awake Quadriplegic Psychiatric: A+Ox3, euthymic affect Lymphatic: no cervical or axillary lymphadenopathy no inguinal lymphadenopathy Results & Data Laboratory Results Short CBC 07/15/18 Range/Units 05:29 WBC 4.57 L (4.8-10.8) K/uL Hgb 10.6 L (12.0-16.0) g/dL Hct 32.5 L (37-47) % Plt Count 86 L (130-400) K/uL BMP 07/15/18 05:29 Sodium 141 Potassium 3.7 Chloride 109 H Carbon Dioxide 30 BUN 5 L Creatinine 0.30 L Glucose 92 Calcium 8.0 L Diagnostic Findings Microbiology 07/13/18 Unknown Buttock Gram Stain - Final 07/13/18 Unknown Buttock Aerobic and Anaerobic Culture - Preliminary No growth to date. 07/13/18 Unknown Buttock Gram Stain - Final 07/13/18 Unknown Buttock Aerobic and Anaerobic Culture - Preliminary Coag negative Staphylococcus _ (1) Decubitus ulcer of ischial area, stage 4 Laterality: left Qualified Code(s): L89.324 - Pressure ulcer of left buttock , stage 4
[2018-07-15] MEDS: MAGNESIUM OXIDE 400 MG TAB PO SCH (22:02)
[2018-07-15] MEDS: MIRTAZAPINE TAB 15 MG TAB PO SCH (22:03)
[2018-07-15] MEDS ORDERED: SOD PHOSPHATE/SOD BIPHOSPHATE ENEMA 132 ML BTL PR PRN (22:53)
[2018-07-16] MEDS: OXYCODONE/ACETAMINOPHEN 5mg/325mg TAB PO PRN ×2 (00:17→15:10)
[2018-07-16] MEDS: MoRPHine SULFATE 4 MG/ML 1 ML CARP\\VIAL IV PRN ×5 (01:24→20:14)
--- NOTE | 2018-07-16 07:56 | Surgery Progress Note ---
Date of Service July 16, 2018 Assessment & Plan (1) Quadriplegia: OnQ pump removed today at bedside. Case management consulted to aid in transportation home and ensuring home nursing is in place. Patient needs evaluation by Dr. Phoenix, consult placed. Plan is for [facility] vs. SNF. Ok for transfer as soon as tomorrow. Patient must remain on Clinitron or [place] type bed, elevation of HOB no more than 15 degrees, may not be out of bed or flex left knee or hip. Soap and water only to wound starting 07/16, no dressings required except during bowel regimen, which as been ordered, change MANJIT dressing daily and remove when <10 cc/24 hours on two consecutive days. Follow [facility] op [facility]. Final cultures still pending. currently on Daptomycin per ID pending cx. Subjective Patient is s/p hamstring V-Y advancement flap for ischial ulcer. No reported side-effects from On-Q pump. She does complain of pain when repositioned. She has not had a bowel movement. Cx still pending, negative so far. Physical Exam 2 Vital Signs (Past 24 Hours): Last Vital Signs Temp 36.9 C 07/16/18 04:00 Pulse 71 07/16/18 04:00 Resp 18 07/16/18 04:00 BP 97/61 L 07/16/18 04:00 Pulse Ox 96 07/16/18 04:00 Constitutional: + thin; no acute distress Skin: + wound and + incision (dressings removed. flap healthy and viable. drains with serous/marcaine output) Psychiatric: A+Ox3, euthymic affect
[2018-07-16] MEDS: DOCUSATE SODIUM 100 MG CAP PO SCH ×2 (08:18→20:06)
[2018-07-16] MEDS: BACLOFEN 20 MG TAB PO SCH ×4 (08:18→20:06)
[2018-07-16] MEDS: MULTIVITAMIN TAB PO SCH (08:18)
[2018-07-16] MEDS: guaiFENesin 600 MG TABCR PO SCH ×2 (08:18→20:06)
[2018-07-16] MEDS: DULOXETINE HCL 60 MG CAP PO SCH (08:18)
[2018-07-16] MEDS: ASCORBIC ACID 500 MG TAB PO SCH ×2 (08:18→20:06)
[2018-07-16] MEDS: GABAPENTIN 600 MG TAB PO SCH ×3 (08:18→20:06)
[2018-07-16] MEDS: DANTROLENE SODIUM 25 MG CAP PO SCH ×3 (08:19→20:06)
[2018-07-16] MEDS: PROCHLORPERAZINE 5 MG in SYRINGE 4 ML IV PRN (12:28)
[2018-07-16] MEDS: DAPTOmycin 350 MG in SYRINGE 0 ML IV SCH (12:30)
[2018-07-16] MEDS: LORazepam 0.5 MG TAB PO PRN (15:10)
[2018-07-16] MEDS: DULOXETINE HCL 30 MG CAP PO SCH (15:10)
[2018-07-16] MEDS: MAGNESIUM OXIDE 400 MG TAB PO SCH (20:06)
[2018-07-16] MEDS: MIRTAZAPINE TAB 15 MG TAB PO SCH (20:07)
[2018-07-17] MEDS: MoRPHine SULFATE 4 MG/ML 1 ML CARP\\VIAL IV PRN ×8 (01:58→23:33)
[2018-07-17] MEDS: OXYCODONE/ACETAMINOPHEN 5mg/325mg TAB PO PRN ×3 (07:40→20:54)
[2018-07-17] MEDS: MULTIVITAMIN TAB PO SCH (07:43)
[2018-07-17] MEDS: guaiFENesin 600 MG TABCR PO SCH ×2 (07:43→21:49)
[2018-07-17] MEDS: ASCORBIC ACID 500 MG TAB PO SCH ×2 (07:43→20:48)
[2018-07-17] MEDS: GABAPENTIN 600 MG TAB PO SCH ×3 (07:43→20:46)
[2018-07-17] MEDS: DOCUSATE SODIUM 100 MG CAP PO SCH ×2 (07:44→20:43)
[2018-07-17] MEDS: DANTROLENE SODIUM 25 MG CAP PO SCH ×3 (07:44→20:46)
[2018-07-17] MEDS: BACLOFEN 20 MG TAB PO SCH ×4 (07:44→20:47)
[2018-07-17] MEDS: DULOXETINE HCL 60 MG CAP PO SCH (07:44)
--- NOTE | 2018-07-17 10:40 | Surgery Progress Note ---
Date of Service July 17, 2018 Assessment & Plan (1) Quadriplegia: Case discussed with assistant case manager. She states insurance is unlikely to cover SNF/[facility]. If this is the case, patient will need transportation home via litter on EHOB mattress and to wound care center two weeks post op, needs IV Daptomycin for osteomyelitis. Case management consulted to aid in transportation home and ensuring home nursing is in place. Ok for discharge with regard to surgery. Patient must remain on Clinitron or Kin[place] type bed, elevation of HOB no more than 15 degrees, may not be out of bed or flex left knee or hip. Soap and water only to wound starting 07/16, no dressings required except during bowel regimen, which as been ordered, change MANJIT dressing daily and remove when <10 cc/24 hours on two consecutive days. Follow up 2 weeks post op at [facility] for suture removal. Subjective Patient is 5 days s/p hamstring V-Y advancement flap for ischial ulcer. On Q pump removed yesterday, patient reports an increase in pain. Still not seen by PM+R. Physical Exam 2 Vital Signs (Past 24 Hours): Last Vital Signs Temp 36.7 C 07/17/18 08:08 Pulse 78 07/17/18 08:08 Resp 14 07/17/18 08:08 BP 96/55 L 07/17/18 08:08 Pulse Ox 98 07/17/18 08:08 Constitutional: + thin; no acute distress Eyes: PERRL, conjunctivae normal, anicteric sclerae Neck: trachea midline, no thyromegaly normal visual inspection Respiratory: normal respiratory effort, lungs clear to auscultation Cardiovascular: RRR, no murmur, no edema Gastrointestinal (Abdomen): normal bowel sounds, soft, nontender, no hepatosplenomegaly Skin: + incision (flap healthy and viable. drains with serosanguinous output 70/70 for 24 hours) Psychiatric: A+Ox3, euthymic affect Results & Data Laboratory Results cx now show rare staph aureus in bone/soft tissue
[2018-07-17] MEDS: DAPTOmycin 350 MG in SYRINGE 0 ML IV SCH (13:13)
[2018-07-17] MEDS: DULOXETINE HCL 30 MG CAP PO SCH (15:32)
[2018-07-17] MEDS: MIRTAZAPINE TAB 15 MG TAB PO SCH (20:44)
[2018-07-17] MEDS: MAGNESIUM OXIDE 400 MG TAB PO SCH (20:48)
[2018-07-18] MEDS: OXYCODONE/ACETAMINOPHEN 5mg/325mg TAB PO PRN ×3 (01:47→15:16)
[2018-07-18] MEDS: MoRPHine SULFATE 4 MG/ML 1 ML CARP\\VIAL IV PRN ×3 (03:38→14:02)
[2018-07-18] MEDS: PROCHLORPERAZINE 5 MG in SYRINGE 4 ML IV PRN (06:34)
[2018-07-18] MEDS: LORazepam 0.5 MG TAB PO PRN (08:32)
[2018-07-18] MEDS: DULOXETINE HCL 60 MG CAP PO SCH (08:44)
[2018-07-18] MEDS: ASCORBIC ACID 500 MG TAB PO SCH (08:44)
[2018-07-18] MEDS: GABAPENTIN 600 MG TAB PO SCH ×2 (08:45→14:03)
[2018-07-18] MEDS: DANTROLENE SODIUM 25 MG CAP PO SCH ×2 (08:45→14:03)
[2018-07-18] MEDS: DOCUSATE SODIUM 100 MG CAP PO SCH (08:45)
[2018-07-18] MEDS: MULTIVITAMIN TAB PO SCH (08:45)
[2018-07-18] MEDS: BACLOFEN 20 MG TAB PO SCH ×2 (08:46→12:11)
[2018-07-18] MEDS: guaiFENesin 600 MG TABCR PO SCH (08:48)
--- NOTE | 2018-07-18 11:30 | Surgery Progress Note ---
Date of Service July 18, 2018 Assessment & Plan (1) Quadriplegia: Plan is for discharge today. patient will need transportation home via litter on EHOB mattress and to wound care center two weeks post op, needs IV Daptomycin for osteomyelitis. Culture also shows morganella. Will touch base with ID regarding abx. Case management consulted to aid in transportation home and ensuring home nursing is in place. Ok for discharge with regard to surgery. Patient must remain on Clinitron or Kin[place] type bed, elevation of HOB no more than 15 degrees, may not be out of bed or flex left knee or hip. Soap and water only to wound starting 07/16, no dressings required except during bowel regimen, which as been ordered, change MANJIT dressing daily and remove when < 10 cc/24 hours on two consecutive days. Follow up 2 weeks post op at [facility] for [facility]. Subjective Patient is 5 days s/p hamstring V-Y advancement flap for ischial ulcer. Resting in bed. Physical Exam 2 Vital Signs (Past 24 Hours): Last Vital Signs Temp 36.7 C 07/18/18 07:30 Pulse 88 07/18/18 07:30 Resp 20 07/18/18 07:30 BP 98/60 L 07/18/18 07:30 Pulse Ox 97 07/18/18 07:30 Physical Exam: wound intact left posterior thigh
[2018-07-18] MEDS: DAPTOmycin 350 MG in SYRINGE 0 ML IV SCH (12:11)
--- NOTE | 2018-07-18 14:44 | Infectious Disease Progress Nt ---
Date of Service July 18, 2018 Assessment & Plan (1) Decubitus ulcer of ischial area, stage 4: Stage IV decubitus ulcer of the facial area with underlying osteomyelitis with previous cultures positive for methicillin sensitive staph aureus, currently on current operative cultures. Will continue on daptomycin, will likely need prolonged course. Will follow. (2) Osteomyelitis of pelvic region: Subjective Patient seen in follow-up for nonhealing ischial decubitus, status post debridement and flap. Pain reasonably well controlled. Remains afebrile. Cultures growing staph aureus. Review of Systems All systems reviewed & are unremarkable except as noted in HPI & below Physical Exam 2 Vital Signs (Past 24 Hours): Last Vital Signs Temp 37.1 C 07/18/18 11:35 Pulse 74 07/18/18 11:35 Resp 20 07/18/18 11:35 BP 102/68 07/18/18 11:35 Pulse Ox 97 07/18/18 11:35 Constitutional: WD/WN, vitals as above comfortable; no acute distress Eyes: PERRL, conjunctivae normal, anicteric sclerae ENMT: external ear and nose normal, oropharynx normal Neck: trachea midline, no thyromegaly neck nontender Respiratory: normal respiratory effort, lungs clear to auscultation normal percussion; no respiratory distress and does not use accessory muscles Cardiovascular: Rate/Rhythm: regular rate and regular rhythm Heart Sounds: normal S1 and normal S2; no gallop, no murmur and no cardiac rub Vessels: normal peripheral pulses; no JVD Gastrointestinal (Abdomen): normal bowel sounds, soft, nontender, no hepatosplenomegaly Musculoskeletal: Head/Neck/Chest: normocephalic and head atraumatic Spine: thoracic spine normal to inspection and lumbar spine normal to inspection; no cervical spinal tenderness Skin: no rashes, warm and dry Neurologic: awake Psychiatric: A+Ox3, euthymic affect Orientation: cooperative Lymphatic: no cervical or axillary lymphadenopathy no inguinal lymphadenopathy Results & Data Laboratory Results Laboratory Results - last 48 hr 07/17/18 15:23 POC Ur Test NEG Diagnostic Findings Microbiology 07/13/18 Unknown Buttock Gram Stain - Final 07/13/18 Unknown Buttock Aerobic and Anaerobic Culture - Final Staphylococcus aureus Morganella morganii 07/13/18 Unknown Buttock Gram Stain - Final 07/13/18 Unknown Buttock Aerobic and Anaerobic Culture - Final Coag negative Staphylococcus Staphylococcus aureus _ (1) Decubitus ulcer of ischial area, stage 4 Laterality: left Qualified Code(s): L89.324 - Pressure ulcer of left buttock , stage 4
[2018-07-18] MEDS: DULOXETINE HCL 30 MG CAP PO SCH (15:16)
--- NOTE | 2018-07-19 16:10 | Discharge Summary ---
Date of Service July 19, 2018 Admission HPI Per Admitting Provider 27 year old female with stage IV ischial pressure ulcer that has been following with Dr. Summers at wound care, s/p debridement and VAC February 2018, with persistent osteomyelitis, nonhealing sinus tract left ischium. Admission Exam Per Admitting Provider see admission H&P Principal Diagnosis Stage IV ischial pressure ulcer Discharge Exam Constitutional no acute distress Skin + incision (dressings removed. flap healthy and viable. drains with serous/ marcaine output) Discharge Data Allergies Allergy/AdvReac Type Severity Reaction Status Date / Time cefepime Allergy Severe ANAPHYLAXIS Verified 07/13/18 10:21 imipenem Allergy Severe SEIZURE Verified 07/13/18 10:21 vancomycin Allergy Intermediate RASH Verified 07/13/18 10:21 levofloxacin Allergy Mild rash Verified 07/13/18 10:21 fentanyl Allergy Unknown ITCHY AND Verified 07/13/18 10:21 RASH Penicillins Allergy Unknown RASH PER Verified 07/13/18 10:21 MOTHER Sulfa (Sulfonamide Allergy Unknown UNKNOWN Verified 07/13/18 10:21 Antibiotics) Consultations 07/13/18 17:08 Consult Case Management - Discharge Planning Routine Consult Infectious Diseases Routine 0214/ 15:51 Consult Rehabilitation Medicine Routine Procedures Performed Operation Date: 07/13/18 11:50 Actual Procedures p Left Ischial Ulcer Debridement and Hamstring Flap Closure(Left) - Roz Summers MD Hospital Course (1) Quadriplegia: Patient presented on 2/13 with history of stage IV ischial pressure ulcer. She was taken to the OR and underwent left ischial ulcer debridement and hamstring flap closure. Later that day, she reported a metallic taste in her mouth so the patient's On-Q pump was clamped. On POD#1, her symptoms were resolved and pump was unclamped. Case management and Infectious disease were consulted. The patient was on [place] bed. On POD #2, her dressings were removed and flap is viable. She had continued stay for IV antibiotics with daptomycin and pending medicine rehab consultation. On POD # 3, her On-Q pump was removed. Patient had continued stay await evaluation by Dr. Phoenix for transfer to SNF. On POD#4, case management discovered the patient would not be accepted at SNF due to bedrest status. She was d/c home on POD#5 on liter. She will follow-up at wound care 2 weeks from surgery. The patient's cultures did reveal morganella and staph aureus. She has been followed by ID and will stay on retirement coverage with IV daptomycin. Total Time Total Time Spent Total Time Spent (In Minutes): 30 Total Time Includes: Examination of the Patient, Discharge Planning, Medication Reconciliation and Communication With Other Providers Discharge Plan Discharge Items Patient Disposition: Home - Home Health Services Reason For Visit: Left Ischial Stage IV Pressure Ulcer Discharge Diagnosis: s/p debridement of Ischial Ulcer with V-Y hamstring flap closure Discharge Goals: Decrease discomfort and Improve function Activity: As commented below Lifting Comment: no restrictions Bathing: May shower/bathe in 3 days Bathing Comment: no tub bathing Non-emergency contact: Surgeon Call non-emergency contact if: you have a fever, your wound has increased redness and your wound has increased drainage Follow-up/Referrals: Noel Centeno MD [Primary Care Provider] - Diet: Regular Addtl Provider Instructions: ACTIVITY RECOMMENDATIONS: __Normal activities _x_No bending left leg/knee/hip for minimum of 3 weeks __No driving __Driving allowed when you are off pain medications __Walking permitted __You should have help at home for ___ days DRESSINGS: _x_No dressings required EXCEPT during bowel regimen. Cover wound with dry 4x4' s and tegaderm prior to bowel movement and do not bend left leg during regimen. __Keep dressings dry/in place until first office visit __Remove dressings ___ and leave dressings off __Apply ice ___ days __Remove dressings and reapply garment __Apply antibiotic ointment (Bacitracin, Neosporin, etc) to wounds 3-4 times/ day for 10 days BATHING: __Keep dressings dry __Sponge bathing permitted __Showering permitted __No swimming, hot tubs or soaking in a tub MEDICATIONS: Resume previous medications unless instructed otherwise by your surgeon. _x_Do not use aspirin, Motrin, Advil or Ibuprofen as these may promote bleeding. Please use Tylenol. _x_Prescription(s) provided: a script for Percocet will be provided at your discharge OTHER INSTRUCTIONS: _x_Record drain output 2-3 times per day. Drains may be removed by SNF when output per drain is 10cc or less over a 24 hour period for 2 consecutive days. On-Q pump catheters can be removed prior to discharge or at SNF if still delivering marcaine. SPECIAL CARE INSTRUCTIONS: * It is normal to have a mild fever after surgery. If your temperature is higher than 101.5 degrees F, please call the office at [phone]. * Constipation is a typical side effect of pain medication. An over-the- counter stool softener will help relieve this. * Leaking around surgical drains may occur and should not cause concern. Sometimes these drains become clogged. If this happens, remove the bulb and milk the clot out of the tube, then replace the bulb. * Drainage from wounds after liposuction is normal and should be expected. Garments will become soiled. You should protect furniture and bedding. This drainage should mostly subside within 2-3 days. Leave garments in place unless instructed to remove them. * If you have unusual drainage from a wound or are concerned you have an infection or have any questions or concerns, please call the office at [phone]. FOLLOW UP VISIT: If not already scheduled, please call the office, , when you return home after surgery to schedule an appointment to be seen at wound care center by Dr. Summers 2 weeks postoperatively for suture removal. Prescriptions: Continue ascorbic acid (vitamin C) 1,000 mg Tablet 1 g PO Q12 RF: 0 baclofen 20 mg Tablet 30 mg PO QID RF: 0 dantrolene 100 mg Capsule 100 mg PO TID RF: 0 buspirone 10 mg Tablet 10 mg PO BID PRN (Reason: depression) RF: 0 docusate sodium 283 mg Enema 100 mg [place] HS RF: 0 docusate sodium 100 mg Tablet 100 mg PO BID RF: 0 duloxetine 30 mg Capsule,Delayed Release(Dr/Ec) 30 mg PO 1500 RF: 0 duloxetine 60 mg Capsule,Delayed Release(Dr/Ec) 60 mg PO QAM RF: 0 lorazepam 0.5 mg Tablet 0.5 mg PO Q8 PRN (Reason: Anxiety) RF: 0 fluticasone 50 mcg/actuation [place],Suspension 2 spray INTRANASAL QAM PRN (Reason: allergies) RF: 0 methenamine hippurate 1 gram Tablet 1 g PO BID RF: 0 mirtazapine 15 mg Tablet 7.5 mg PO HS RF: 0 magnesium oxide 400 mg Capsule 400 mg PO HS RF: 0 oxybutynin chloride 5 mg Tablet 5 mg PO QID PRN (Reason: Bladder Spasms) RF: 0 oxycodone-acetaminophen 5-325 mg Tablet 1 tab PO Q6H PRN (Reason: Pain) RF: 0 zolpidem 5 mg Tablet 5 mg PO HS PRN (Reason: Sleep) RF: 0 rivaroxaban 20 mg Tablet 20 mg PO QAM RF: 0 gabapentin 600 mg Tablet 600 mg PO HS RF: 0 nystatin 100,000 unit/gram Powder 1 applic TOPICAL BID PRN (Reason: Skin Irritation) RF: 0 guaifenesin [Mucinex] 600 mg Tablet Extended Release 12hr 600 mg PO Q12H RF: 0 Stand-Alone Forms: [facility], Opioid Pain Management Discharge Orders: Discharge Order (Routine); Ordered 07/15/18 Ordered By: No Dennison Admission Data Admit Date/Time: 07/13/18 15:28 Attending Provider: Roz Summers Admit Provider: Roz Summers Primary Care Provider: Noel Centeno Other Providers: Adán Walker ; Heidi Coffman ; Camden Sims Service: Surgical Services Other Interventions: Discharge Summary Assessment (RN) Last Done: 07/18/18 14:50 Pending Studies at Discharge: Yes Studies:: microbiology DC Date/Time DO NOT enter until pt leaves facility: 07/18/18 15:50
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
== END 2018-07-18 15:50 | disposition home health service (06) | DRG 981 ==
LOC: ASU 09:51 → 3W 15:28

== ENCOUNTER 2018-11-19 19:42 | Inpatient (IN) ==
--- OUTSIDE RECORDS SUMMARY | 2018-11-19 19:45 | External Medical Summary | Continuity of Care Document ---
:1990 Author Name Saba Mckeon, Provider Address Unavailable Unavailable , Care Team Providers Name Role Phone Spencer Silva DO Unavailable [email or web address] JOHNSON, No Unavailable [email or web address] Ledy Mckeon, [email or web address] Harvinder Centeno Unavailable Unavailable Unavailable Unavailable Unavailable Problems Presence of other vascular implants and grafts (V43.4) (Z95. 828) Decubitus ulcer of ischial area, stage 4 (707.05) (L89.304) Urinary tract infection (599.0) (N39.0) Respiratory failure, emtfg-il-[id number] (518.84) (J96.20) Deep venous thrombosis (453.40) (I82.409) Diarrhea (787.91) (R19.7) Small bowel obstruction (560.9) (K56.609) Hernia with obstruction (552.9) (K46.0) Depressed mood (311) (F32.9) Muscle spasm (728.85) (M62.838) Insomnia (780.52) (G47.00) Pseudomonal sepsis (038.43) (A41.52) Restrictive lung mechanics due to neuromuscular disease (518 .89) (J98.4) Difficulty clearing secretions Closed fracture of C5-C7 level with spinal cord injury (806. 05) Quadriplegia (344.00) (G82.50) Restrictive lung disease (518.89) (J98.4) Staphylococcus aureus infection (041.11) (A49.01) Shortness of breath (786.05) (R06.02) Neurogenic bladder (596.54) (N31.9) Pneumonia (486) (J18.9) Allergies and Adverse Reactions Cefepime HCl SOLN (Adverse Event) Onset: 16-May-2014 Reacti on: Anaphylaxis Imipenem-Cilastatin SOLR (Allergy) React ion: Seizures levofloxacin (Allergy) Penicillins (Allergy) Reaction: Rash Sulfa Drugs (Allergy) Vancocin HCl CAPS (Allergy) Reaction: Ra sh Medications Zofran 4 MG Oral Tablet; One tablet every 8 hours as needed for nausea Start: 26-Sep-2014 Quantity: 6 Refills: 0 Remeron 15 MG Oral Tablet; TAKE 1/2 TO 1 TABLET AT BEDTIME. Refills: 0 Xarelto 20 MG Oral Tablet; Take 1 tablet daily Refills: 0 oxyCODONE HCl - 5 MG Oral Capsule Refills: 0 Enema ENEM Refills: 0 Percocet 5-325 MG Oral Tablet; take 1 tablet at bedtime as n eeded Refills: 0 Magnesium Oxide 400 MG Oral Tablet; TAKE 1 TABLET DAILY. Refills: 0 LORazepam 0.5 MG Oral Tablet; TAKE 1 TABLET EVERY 8 HOURS NEEDED Refills: 0 DULoxetine HCl - 60 MG Oral Capsule Ele yed Release Particles; 60 mg in morning and 30mg in afternoon Start: 26-Sep-2014 Refills: 0 Dantrium 50 MG Oral Capsule; TAKE 100 MG 3 times daily Refills: 0 Colace 100 MG Oral Capsule; TAKE 1 CAPSULE TWICE DAILY. Refills: 0 Zolpidem Tartrate 5 MG Oral Tablet; TAKE 1 TABLET AT BEDTIME NEEDED. Refills: 0 Endocet 5-325 MG Oral Tablet; TAKE 1 TAB LET EVERY 4 TO 6 HOURS NEEDED FOR PAIN. ALEX Dennison Start: 15-Jul-2018 Quantity: 18 Refills: 0 Mucinex 600 MG Oral Tablet Extended Rele ase 12 Hour; TAKE 1 TABLET EVERY 12 HOURS. Linda Villafana Quantity: 60 Refills: 5 Levalbuterol HCl - 0.63 MG/3ML Inhalatio n Nebulization Solution; USE 1 UNIT DOSE IN NEBULIZER EVERY 6 TO 8 HOURS NEEDED. DO Spencer Silva Start: Quantity: 5 25 x 3 ML Plas Cont Refills: 5 Baclofen 20 MG Oral Tablet; 10 mg 4 x's20mg 4 x's Refills: 0 busPIRone HCl - 10 MG Oral Tablet; 2 x day Start: 21-Sep-2017 Refills: 0 Hiprex 1 GM Oral Tablet Refills: 0 Vitamin C TABS; TAKE 1000MG TWICE DAILY Refills: 0 Procedures History of Cervical Vertebral Fusion Sta tus: Completed History of Tracheostomy Status: Complete d History of Percutan Placement Gastrostomy Tube Status: Completed Fluoroscopic Guidance History of Bladder Cystotomy Status: Com pleted History of Thoracentesis (Therapeutic) S tatus: Completed History of Formation Of Cutaneous Status : Completed Uretero-Ileostomy History of Gastrostomy Temporary Status: Completed History of Thoracentesis With Insertion Of Tube Status: Completed History of Closure Of Tracheostomy / Fistula Status: Completed History of Thoracoscopy (Therapeutic) St atus: Completed History of Closure Of Tracheostomy / Fistula Status: Completed History of Exploratory Laparotomy Status : Completed History of Cystoscopy With Pyeloscopy With Status: Completed Lithotripsy History of Oral Surgery Tooth Extraction Status: Completed History of Central IV Line Type PICC Sta tus: Completed History of venous access port removal St atus: Completed 11-Oct-2017 0:00 Immunizations Influenza On: 15-Feb-2013 16:36 Lot #: [id number], [employer] Influenza On: 21-Feb-2014 15:30 Lot #: [id number], [employer] Influenza On: 08-May-2016 9:52 Lot #: [id number], [employer] Family History Mother Family history of Hyperlipidemia Status: Active Father Family history of Diabetes Mellitus (V18.0) Status: Active Brother Family history of Allergic Rhinitis Status: Active Social History - Smoking Status Former smoker Plan of Treatment Planned Encounters Appointment; Spencer Silva DO Start: 13-Nov-2019 15:30 Requ est Planned Observations Planned Goals not documented Results No Known Results Results not documented Vital Signs 09-Nov-2018 15:53 Systolic 116 mm[Hg] Diastolic 70 mm[Hg] Respiration 18 /min Heart Rate 94 /min O2 Saturation 98 % Comments: Source: 09-Nov-2018 14:48 Weight 130 lb Encounters Appointment; Spencer Silva DO 09-Nov-2018 15:30 Encounter Diagnosis: Problem not documented Appointment; Pulmonary, Funct Testing 09-Nov-2018 14:45 Encounter Diagnosis: Problem not documented Appointment; Roz Summers M.D. 25-Aug-2018 13:30 Encounter Diagnosis: Problem not documented Appointment; Roz Summers M.D. 29-Jul-2018 8:30 Encounter Diagnosis: Problem not documented Appointment; Roz Summers M.D. 13-Jul-2018 7:00 Encounter Diagnosis: Problem not documented Appointment; Roz Summers M.D. 07-Jul-2018 9:30 Encounter Diagnosis: Problem not documented Appointment; Christian Silverman M.D. 15-Jun-2018 7:30 Encounter Diagnosis: Problem not documented Appointment; Christian Silverman M.D. 10-Jun-2018 10:00 Encounter Diagnosis: Problem not documented Appointment; Roz Summers M.D. 09-Jun-2018 9:15 Encounter Diagnosis: Problem not documented Appointment; Roz Summers M.D. 26-May-2018 9:00 Encounter Diagnosis: Problem not documented Appointment; Roz Summers M.D. 28-Apr-2018 9:30 Encounter Diagnosis: Problem not documented Appointment; Roz Summers M.D. 17-Mar-2018 9:30 Encounter Diagnosis: Problem not documented Appointment; Roz Summers M.D. 14-Mar-2018 11:00 Encounter Diagnosis: Problem not documented Appointment; Roz Summers M.D. 03-Mar-2018 9:30 Encounter Diagnosis: Problem not documented Appointment; Roz Summers M.D. 17-Feb-2018 9:30 Encounter Diagnosis: Problem not documented Appointment; Roz Summers M.D. 03-Feb-2018 9:15 Encounter Diagnosis: Problem not documented Appointment; Spencer Silva DO 09-Nov-2017 13:30 Encounter Diagnosis: Problem not documented Appointment; Pulmonary, Funct Testing 09-Nov-2017 13:00 Encounter Diagnosis: Problem not documented Appointment; Christian Silverman M.D. 28-Oct-2017 9:30 Encounter Diagnosis: Problem not documented Appointment; Christian Silverman M.D. 11-Oct-2017 10:30 Encounter Diagnosis: Problem not documented Appointment; Christian Silverman M.D. 21-Sep-2017 14:50 Encounter Diagnosis: Problem not documented Appointment; Spencer Silva DO 13-Nov-2019 15:30 Encounter Diagnosis: Problem not documented
[2018-11-19] MEDS ORDERED: DOXYCYCLINE HYCLATE 100 MG CAP PO STA (20:02)
--- NOTE | 2018-11-19 20:26 | XRay Report ---
RIGHT SECOND TOE RADIOGRAPHS CLINICAL HISTORY: Right second toe swelling. Evaluate for osteomyelitis. COMPARISON: None FINDINGS: Right second toe soft tissue swelling is noted. No acute fracture is identified. Lateral v iew demonstrates a suspected wound overlying the dorsal aspect of the proximal interphalangeal joint of the right second toe. There is subtle lucency within the head of the proximal phalanx of the right second toe. IMPRESSION: Subtle lucency within the head of the proximal phalanx of the right second toe with overl cordelia wound. The findings raise the possibility of osteomyelitis. MRI could be obtained for further ev aluation. Electronically signed by: Yoryd Matias M.D. 11/19/2018 8:24 PM
[2018-11-19] MEDS ORDERED: OXYCODONE/ACETAMINOPHEN 5mg/325mg TAB PO STA (21:04)
[2018-11-19 22:07] LABS: Basophils # (auto) 0.01 K/uL (0-0.2); Basophils % (auto) 0.2 %; Eosinophils % (auto) 1.8 %; Hemoglobin 12.4 g/dL (12.0-16.0); Immature Granulocytes # (auto) 0.02 K/uL (0.00-0.02); Immature Granulocytes % (auto) 0.4 %; Lymphocytes # (auto) 2.46 K/uL (1.2-3.4); Lymphocytes % (auto) 44.5 %; Mean Corpuscular Hgb Conc 33.5 g/dL (32-36); Mean Corpuscular Volume 90.5 fL (80-100); Mean Platelet Volume 10.8 fL (7.4-10.4); Monocytes # (auto) 0.61 K/uL (0.11-0.59); Neutrophils # (auto) 2.33 K/uL (1.4-6.5); Neutrophils % (auto) 42.1 %; Platelet Count 101 K/uL (130-400); RDW Coefficient of Variation 13.9 % (11.5-14.5); RDW Standard Deviation 46.8 fL (36.4-46.3); Red Blood Count 4.09 M/uL (4.2-5.4); White Blood Count 5.53 K/uL (4.8-10.8)
[2018-11-19 22:14] LABS: Alanine Aminotransferase 24 U/L (12-78); Albumin Level 3.6 gm/dl (3.4-5.0); Aspartate Aminotransferase 15 U/L (15-37); BUN Creatinine Ratio 34.4 (10-20); Blood Urea Nitrogen 10 mg/dl (7-18); C Reactive Protein < 0.29 mg/dl (0-0.29); Calcium 9.2 mg/dl (8.5-10.1); Carbon Dioxide 28 mmol/L (21-32); Chloride 106 mmol/L (98-107); Creatinine Clr Calc Pharmacy 266.8 ml/min; Est GFR (African American) > 150.0; Est GFR (Non-African American) > 150.0; Glucose 83 mg/dl (70-99); Potassium 3.4 mmol/L (3.5-5.1); Sodium 140 mmol/L (136-145)
[2018-11-19 22:17] LABS: Albumin Globulin Ratio 1.2 (0.9-2); Alkaline Phosphatase 88 U/L (45-117); Bilirubin,Total 0.3 mg/dl (0.2-1); Total Protein 6.6 gm/dl (6.4-8.2)
[2018-11-20] MEDS ORDERED: DAPTOmycin 275 MG in SYRINGE 0 ML IV ONE
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
[2018-11-20] MEDS ORDERED: LACTATED RINGER'S 1,000 ML IV ONE (00:35)
[2018-11-20] MEDS ORDERED: POTASSIUM CHLORIDE 20 MEQ TABCR PO STA (00:35)
[2018-11-20] MEDS ORDERED: POTASSIUM CHLORIDE 10 MEQ TABCR PO ONE (00:46)
[2018-11-20 00:52] LABS: Magnesium 1.7 mg/dl (1.8-2.4)
[2018-11-20] MEDS ORDERED: KETOROLAC TROMETHAMINE 15 MG/ML VIAL IV ONE ×2 (02:01→06:03)
[2018-11-20] MEDS ORDERED: KETOROLAC TROMETHAMINE 15 MG/ML VIAL ONE (02:04)
[2018-11-20 02:08] LABS: Creatine Kinase 14 U/L (26-192)
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
[2018-11-20 03:10] LABS: Pregnancy Test, Serum Negative (Negative)
[2018-11-20] MEDS ORDERED: ZOLPIDEM TARTRATE 5 MG TAB PO PRN (03:51)
[2018-11-20] MEDS ORDERED: LORazepam 0.5 MG TAB PO PRN (03:51)
[2018-11-20] MEDS ORDERED: OXYBUTYNIN CHLORIDE 5 MG TAB PO PRN (03:51)
[2018-11-20] MEDS ORDERED: MAGNESIUM SULFATE / D5W 1 GM/100 ML BAG IV ONE (04:34)
[2018-11-20] MEDS: SOD PHOSPHATE/SOD BIPHOSPHATE ENEMA 132 ML BTL PR SCH ×2 (04:40→21:07)
[2018-11-20] MEDS: PREGABALIN 100 MG CAP PO SCH ×5 (04:41→21:12)
[2018-11-20] MEDS: OXYCODONE/ACETAMINOPHEN 5mg/325mg TAB PO PRN ×3 (04:41→18:45)
[2018-11-20] MEDS: DOCUSATE SODIUM 100 MG CAP PO SCH ×3 (04:42→21:07)
[2018-11-20] MEDS: MIRTAZAPINE TAB 15 MG TAB PO SCH ×2 (04:43→21:10)
[2018-11-20] MEDS ORDERED: DAPTOMYCIN CONSULT ACTIVE PRN (04:45)
[2018-11-20] MEDS: PROMETHAZINE HCL 12.5 MG in SODIUM CHLORIDE 0.9% 50 ML IV PRN (05:38)
[2018-11-20 06:25] LABS: Hematocrit (blood only) 33.1 % (37-47); Hemoglobin 11.2 g/dL (12.0-16.0); Mean Corpuscular Hgb Conc 33.8 g/dL (32-36); Mean Corpuscular Volume 89.9 fL (80-100); RDW Coefficient of Variation 14.1 % (11.5-14.5); RDW Standard Deviation 46.6 fL (36.4-46.3); Red Blood Count 3.68 M/uL (4.2-5.4); White Blood Count 4.91 K/uL (4.8-10.8)
[2018-11-20] MEDS: HEPARIN 100 UNIT/ML 5ML FLUSH FLUSH PRN (06:31)
--- NOTE | 2018-11-20 06:32 | Magnetic Resonance Report ---
MR foot RT w/o con CLINICAL HISTORY: Left second toe wound. Possible osteomyelitis. COMPARISON STUDY: X-ray dated 11/19/2018 FINDINGS: Imaging was performed in the axial, sagittal, and coronal planes. There is T1 and T2 marrow edema involving the proximal phalanx of the second toe. There is T2 marrow edema involving the middle phalanx of the second toe. Given the clinical history, lack of a traumatic history, and lack of a visible fracture, the findings are indicative of osteomyelitis involving the proximal phalanx of the second toe, and osteitis involving the middle phalanx of the second toe. There is mild soft tissue edema centered on the second phalanx. There are no fluid collections to indicate an abscess. There is nonspecific edema within the visualized calcaneus. There is edema within the intrinsic musculature of the foot. IMPRESSION: 1. Findings indicative of osteomyelitis of the proximal phalanx of the second toe 2. Osteitis of the middle phalanx of the second toe 3. Unexplained partially visualized edema within the calcaneus Electronically signed by: John Lawrence M.D. 11/20/2018 6:31 AM
[2018-11-20 06:37] LABS: INR 1.1 (0.9-1.1); Partial Thromboplastin Time 27.2 Seconds (21.0-31.0)
[2018-11-20 06:56] LABS: Blood Urea Nitrogen 9 mg/dl (7-18); Carbon Dioxide 27 mmol/L (21-32); Chloride 107 mmol/L (98-107); Creatinine Clr Calc Pharmacy 383.6 ml/min; Est GFR (African American) > 150.0; Est GFR (Non-African American) > 150.0; Glucose 91 mg/dl (70-99); Potassium 3.6 mmol/L (3.5-5.1); Sodium 140 mmol/L (136-145)
[2018-11-20 07:13] LABS: Mean Platelet Volume 9.9 fL (7.4-10.4); Platelet Count 90 K/uL (130-400)
[2018-11-20 07:14] LABS: Basophils # (auto) 0.01 K/uL (0-0.2); Basophils % (auto) 0.2 %; Immature Granulocytes # (auto) 0.02 K/uL (0.00-0.02); Immature Granulocytes % (auto) 0.4 %; Lymphocytes # (auto) 1.52 K/uL (1.2-3.4); Monocytes # (auto) 0.57 K/uL (0.11-0.59); Monocytes % (auto) 11.6 %; Neutrophils # (auto) 2.69 K/uL (1.4-6.5); Neutrophils % (auto) 54.8 %; Platelet Estimate Decreased (Normal)
[2018-11-20] MEDS ORDERED: Heparin IV Low Dose *NO* Bolus IV SCH (08:00)
[2018-11-20] MEDS: Heparin Adult LOW DOSE Wt-Based Dextrose 5% 25,000 units/500 mL IV SCH (08:27)
[2018-11-20] MEDS: DULOXETINE HCL 60 MG CAP PO SCH ×2 (08:42→14:19)
[2018-11-20] MEDS: DANTROLENE SODIUM 25 MG CAP PO SCH ×3 (08:42→21:09)
[2018-11-20] MEDS: BACLOFEN 20 MG TAB PO SCH ×4 (08:43→21:08)
[2018-11-20] MEDS: METHENAMINE HIPPURATE 1 GM TAB PO SCH ×2 (08:43→21:10)
[2018-11-20] MEDS ORDERED: ACETAMINOPHEN 1,000 MG/100 ML VIAL IV PRN (11:01)
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
[2018-11-20] MEDS: KETOROLAC TROMETHAMINE 15 MG/ML VIAL IV PRN ×2 (14:22→23:48)
[2018-11-20 14:39] LABS: Partial Thromboplastin Ratio 1.4; Partial Thromboplastin Time 37.1 Seconds (21.0-31.0)
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
[2018-11-20] MEDS: DAPTOmycin 350 MG in SYRINGE 0 ML IV SCH (18:45)
[2018-11-20 20:37] LABS: Partial Thromboplastin Ratio 1.5; Partial Thromboplastin Time 41.9 Seconds (21.0-31.0)
[2018-11-20] MEDS ORDERED: HEPARIN BOLUS IV ONE (20:39)
[2018-11-20] MEDS ORDERED: HEPARIN IV BOLUS 2,000 UNITS in SYRINGE 0 ML IV ONE (20:45)
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
[2018-11-21 03:32] LABS: BUN Creatinine Ratio 23.4 (10-20); Blood Urea Nitrogen 6 mg/dl (7-18); Calcium 8.4 mg/dl (8.5-10.1); Carbon Dioxide 25 mmol/L (21-32); Chloride 111 mmol/L (98-107); Creatinine Clr Calc Pharmacy 319.6 ml/min; Est GFR (African American) > 150.0; Est GFR (Non-African American) > 150.0; Glucose 89 mg/dl (70-99); Magnesium 1.8 mg/dl (1.8-2.4); Potassium 3.8 mmol/L (3.5-5.1); Sodium 140 mmol/L (136-145)
[2018-11-21 03:35] LABS: Partial Thromboplastin Ratio 2.6
[2018-11-21 03:41] LABS: Partial Thromboplastin Time 69.2 Seconds (21.0-31.0)
[2018-11-21] MEDS: DULOXETINE HCL 60 MG CAP PO SCH ×2 (09:09→14:12)
[2018-11-21] MEDS: PREGABALIN 100 MG CAP PO SCH ×4 (09:09→20:57)
[2018-11-21] MEDS: BACLOFEN 20 MG TAB PO SCH ×4 (09:10→20:52)
[2018-11-21] MEDS: METHENAMINE HIPPURATE 1 GM TAB PO SCH ×2 (09:10→20:54)
[2018-11-21] MEDS: DANTROLENE SODIUM 25 MG CAP PO SCH ×3 (09:10→20:53)
[2018-11-21] MEDS: DOCUSATE SODIUM 100 MG CAP PO SCH ×2 (09:10→20:54)
[2018-11-21 10:19] LABS: Partial Thromboplastin Ratio 3.2
[2018-11-21] MEDS: OXYCODONE/ACETAMINOPHEN 5mg/325mg TAB PO PRN ×2 (11:52→18:30)
[2018-11-21] MEDS: Heparin Adult LOW DOSE Wt-Based Dextrose 5% 25,000 units/500 mL IV SCH (15:06)
--- NOTE | 2018-11-21 15:06 | Infectious Disease Progress Nt ---
Date of Service November 21, 2018 Assessment & Plan (1) Osteomyelitis of second toe of right foot: Patient with osteomyelitis of the right second toe with cultures growing staph aureus, suspect this will be MRSA. Continue IV daptomycin. As deferring surgery for now, will need prolonged i.e. 6+ weeks of IV antibiotics to treat. Will follow. (2) Staph aureus infection: Subjective Patient seen in follow-up for osteomyelitis of the toe. Offers no new complaints today. Pain controlled. Surgery to be deferred for now. Remains afebrile, tolerating antibiotic without apparent difficulty. Cultures growing methicillin sensitive staph aureus. Review of Systems Review of Systems: All systems reviewed & are unremarkable except as noted in HPI & below Physical Exam Constitutional: WD/WN, vitals as above + thin; no acute distress Eyes: PERRL, conjunctivae normal, anicteric sclerae ENMT: external ear and nose normal, oropharynx normal Neck: trachea midline, no thyromegaly normal visual inspection Respiratory: normal respiratory effort, lungs clear to auscultation normal percussion; no respiratory distress Cardiovascular: RRR, no murmur, no edema Heart Sounds: no gallop and no cardiac rub Gastrointestinal (Abdomen): normal bowel sounds, soft, nontender, no hepatosplenomegaly Percussion/Palpation: no abdominal mass Musculoskeletal: Head/Neck/Chest: normocephalic, head atraumatic and neck supple Extremities: + abnormal strength Skin: no rashes, warm and dry Right second toe erythema and induration Neurologic: Quadriplegic Psychiatric: A+Ox3, euthymic affect Lymphatic: no cervical or axillary lymphadenopathy no inguinal lymphadenopathy Results & Data Vital Signs (Past 12 Hours) Vital Signs Temp Pulse Resp BP Pulse Ox 11/21/18 07:09 36.5 C 62 19 96/58 L 97 Laboratory Results [facility] 11/21/18 02:56 Sodium 140 Potassium 3.8 Chloride 111 H Carbon Dioxide 25 BUN 6 L Creatinine 0.24 L Glucose 89 Calcium 8.4 L Diagnostic Findings Microbiology 11/20/18 Unknown Toe,Right Gram Stain - Final 11/20/18 Unknown Toe,Right Wound Culture - Preliminary Staphylococcus aureus 11/19/18 21:49 Blood Aerobic Blood Culture - Preliminary No growth in Aerobic bottle after 24 hours. 11/19/18 21:49 Blood Anaerobic Blood Culture - Final 11/19/18 21:32 Blood Aerobic Blood Culture - Preliminary No growth in Aerobic bottle after 24 hours. 11/19/18 21:32 Blood Anaerobic Blood Culture - Preliminary No growth in Anaerobic bottle after 24 hours.
[2018-11-21 17:31] LABS: Partial Thromboplastin Ratio 1.5; Partial Thromboplastin Time 40.9 Seconds (21.0-31.0)
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
[2018-11-21] MEDS: DAPTOmycin 350 MG in SYRINGE 0 ML IV SCH (17:50)
[2018-11-21] MEDS ORDERED: HEPARIN BOLUS IV ONE (20:00)
[2018-11-21] MEDS: MIRTAZAPINE TAB 15 MG TAB PO SCH (20:53)
[2018-11-21] MEDS: SOD PHOSPHATE/SOD BIPHOSPHATE ENEMA 132 ML BTL PR SCH (20:57)
[2018-11-21] MEDS: KETOROLAC TROMETHAMINE 15 MG/ML VIAL IV PRN (23:18)
[2018-11-22 02:49] LABS: Partial Thromboplastin Ratio 2.8
[2018-11-22 02:55] LABS: Partial Thromboplastin Time 76.8 Seconds (21.0-31.0)
[2018-11-22] MEDS: Heparin Adult LOW DOSE Wt-Based Dextrose 5% 25,000 units/500 mL IV SCH (03:04)
[2018-11-22 09:09] LABS: Hematocrit (blood only) 32.7 % (37-47); Hemoglobin 10.9 g/dL (12.0-16.0); Mean Corpuscular Hgb Conc 33.3 g/dL (32-36); Mean Corpuscular Volume 92.1 fL (80-100); RDW Coefficient of Variation 14.4 % (11.5-14.5); RDW Standard Deviation 49.2 fL (36.4-46.3); Red Blood Count 3.55 M/uL (4.2-5.4)
[2018-11-22 09:29] LABS: Partial Thromboplastin Ratio 2.8
[2018-11-22] MEDS: PREGABALIN 100 MG CAP PO SCH ×2 (09:29→12:37)
[2018-11-22] MEDS: DULOXETINE HCL 60 MG CAP PO SCH ×2 (09:29→13:58)
[2018-11-22] MEDS: DANTROLENE SODIUM 25 MG CAP PO SCH ×2 (09:29→13:56)
[2018-11-22] MEDS: METHENAMINE HIPPURATE 1 GM TAB PO SCH (09:29)
[2018-11-22] MEDS: DOCUSATE SODIUM 100 MG CAP PO SCH (09:29)
[2018-11-22] MEDS: BACLOFEN 20 MG TAB PO SCH ×2 (09:30→12:36)
[2018-11-22 09:33] LABS: Mean Platelet Volume 9.9 fL (7.4-10.4); Platelet Count 84 K/uL (130-400)
[2018-11-22 09:42] LABS: Partial Thromboplastin Time 74.8 Seconds (21.0-31.0)
[2018-11-22] MEDS ORDERED: RIVAROXABAN 20 MG TAB PO SCH (10:00)
[2018-11-22] MEDS: PROMETHAZINE HCL 12.5 MG in SODIUM CHLORIDE 0.9% 50 ML IV PRN (10:33)
[2018-11-22] MEDS: OXYCODONE/ACETAMINOPHEN 5mg/325mg TAB PO PRN (12:34)
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
[2018-11-22] MEDS: DAPTOmycin 350 MG in SYRINGE 0 ML IV SCH (13:56)
[2018-11-22] MEDS: HEPARIN 100 UNIT/ML 5ML FLUSH FLUSH PRN (14:02)
== END 2018-11-22 17:05 | disposition home health service (06) | DRG 539 ==
LOC: ED 19:42 → 3N 11-20 02:29
DX: Z93.0 Tracheostomy status; M86.171 Other acute osteomyelitis, right ankle and foot; Z88.0 Allergy status to penicillin; F41.8 Other specified anxiety disorders; G82.50 Quadriplegia, unspecified; N31.9 Neuromuscular dysfunction of bladder, unspecified; E87.6 Hypokalemia; B95.61 Methicillin susceptible Staphylococcus aureus infection as the cause of diseases classified elsewhere; D69.6 Thrombocytopenia, unspecified; Z88.2 Allergy status to sulfonamides; L03.115 Cellulitis of right lower limb

== ENCOUNTER 2019-08-13 14:17 | Inpatient (IN) ==
[2019-08-13] MEDS ORDERED: ONDANSETRON INJ 2 MG/ML 2 ML VIAL IV STA (15:18)
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
[2019-08-13] MEDS: MoRPHine SULFATE 4 MG/ML 1 ML CARP\\VIAL IV PRN ×2 (15:47→17:45)
[2019-08-13 16:01] LABS: Basophils # (auto) 0.01 K/uL (0-0.2); Basophils % (auto) 0.2 %; Eosinophils # (auto) 0.11 K/uL (0-0.5); Eosinophils % (auto) 1.9 %; Hematocrit (blood only) 38.5 % (37-47); Hemoglobin 12.5 g/dL (12.0-16.0); Immature Granulocytes # (auto) 0.02 K/uL (0.00-0.02); Immature Granulocytes % (auto) 0.4 %; Lymphocytes # (auto) 1.96 K/uL (1.2-3.4); Lymphocytes % (auto) 34.4 %; Mean Corpuscular Hemoglobin 30.7 pg (25-34); Mean Corpuscular Hgb Conc 32.5 g/dL (32-36); Mean Corpuscular Volume 94.6 fL (80-100); Mean Platelet Volume 10.5 fL (7.4-10.4); Monocytes # (auto) 0.61 K/uL (0.11-0.59); Monocytes % (auto) 10.7 %; Neutrophils # (auto) 2.98 K/uL (1.4-6.5); Neutrophils % (auto) 52.4 %; Platelet Count 138 K/uL (130-400); RDW Coefficient of Variation 13.3 % (11.5-14.5); RDW Standard Deviation 45.7 fL (36.4-46.3); Red Blood Count 4.07 M/uL (4.2-5.4); White Blood Count 5.69 K/uL (4.8-10.8)
[2019-08-13 16:20] LABS: BUN Creatinine Ratio 23.4 (10-20); Blood Urea Nitrogen 9 mg/dl (7-18); C Reactive Protein 0.59 mg/dl (0-0.29); Carbon Dioxide 29 mmol/L (21-32); Chloride 107 mmol/L (98-107); Creatinine Clr Calc Pharmacy 201.9 ml/min; Est GFR (African American) > 150.0; Est GFR (Non-African American) 146.2; Glucose 99 mg/dl (70-99); Potassium 4.3 mmol/L (3.5-5.1); Sodium 139 mmol/L (136-145)
[2019-08-13] MEDS ORDERED: AZTREONAM 2,000 MG in DEXTROSE 5% 100 ML IV STA (17:03)
[2019-08-13] MEDS ORDERED: SODIUM CHLORIDE 0.9% 1000ML 500 ML IV ONE (17:06)
[2019-08-13] MEDS ORDERED: SODIUM CHLORIDE 0.9% 1000ML 1,000 ML IV STA (17:06)
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
[2019-08-13 18:59] LABS: Appearance Urine Slightly Cloudy (Clear); Bilirubin Urine Negative (Negative); Blood Urine Trace (Negative); Color Urine Yellow; Glucose Urine UA Negative (Negative); Ketones Urine Negative (Negative); Leukocyte Esterase Urine 3+ (Negative); Nitrite Urine Positive (Negative); Urobilinogen Urine Negative (Negative); pH Urine >= 9.0 (4.5-7.5)
[2019-08-13 19:24] LABS: Protein Urine Trace (Negative); Sulfosalicylic Acid Urine Positive (Negative)
[2019-08-13 19:27] LABS: Bacteria Urine 2+ (Negative); Epithelial Cell Urine >30 /lpf (0-5); Triple Phosphate Crystal Urine Present (None Prsent); WBC Urine >30 /hpf (0-5)
[2019-08-13] MEDS ORDERED: LORazepam 0.5 MG TAB PO PRN (19:34)
[2019-08-13] MEDS ORDERED: ZOLPIDEM TARTRATE 5 MG TAB PO PRN (19:34)
[2019-08-13] MEDS ORDERED: SOD PHOSPHATE/SOD BIPHOSPHATE ENEMA 132 ML BTL PR PRN (19:34)
[2019-08-13] MEDS ORDERED: FLUTICASONE PROPIONATE NA SPR 16 GM BTL NAE PRN (19:34)
[2019-08-13] MEDS ORDERED: NYSTATIN POWDER 15GM BTL EXT PRN (19:34)
[2019-08-13] MEDS ORDERED: OXYBUTYNIN CHLORIDE 5 MG TAB PO PRN (19:34)
[2019-08-13] MEDS ORDERED: POLYETHYLENE (MIRALAX) 17 GM PACK PO PRN (19:36)
[2019-08-13] MEDS ORDERED: ACETAMINOPHEN 325 MG TAB PO PRN (19:36)
[2019-08-13] MEDS ORDERED: ONDANSETRON INJ 2 MG/ML 2 ML VIAL IV PRN (19:36)
[2019-08-13] MEDS ORDERED: MoRPHine SULFATE 4 MG/ML 1 ML CARP\\VIAL IV PRN (19:38)
[2019-08-13] MEDS ORDERED: AZTREONAM CONSULT ACTIVE PRN (20:04)
[2019-08-13] MEDS ORDERED: DULOXETINE HCL 60 MG CAP PO SCH (21:00)
[2019-08-13] MEDS: ASCORBIC ACID 500 MG TAB PO SCH (21:44)
[2019-08-13] MEDS: MAGNESIUM OXIDE 400 MG TAB PO SCH (21:45)
[2019-08-13] MEDS: METHENAMINE HIPPURATE 1 GM TAB PO SCH (21:45)
[2019-08-13] MEDS: BACLOFEN 10 MG TAB PO SCH (21:46)
[2019-08-13] MEDS: DANTROLENE SODIUM 25 MG CAP PO SCH (21:46)
[2019-08-13] MEDS: MIRTAZAPINE TAB 15 MG TAB PO SCH (21:47)
[2019-08-13] MEDS: DOCUSATE SODIUM 100 MG CAP PO SCH (21:48)
[2019-08-13] MEDS: guaiFENesin 600 MG TABCR PO SCH (21:48)
[2019-08-13] MEDS: GABAPENTIN 600 MG TAB PO SCH (21:48)
[2019-08-13] MEDS: OXYCODONE/APAP 7.5/325MG TAB PO PRN (21:49)
[2019-08-14] MEDS: MoRPHine SULFATE 2 MG/ML CARP IV PRN ×5 (02:10→23:02)
[2019-08-14] MEDS: AZTREONAM 2,000 MG in DEXTROSE 5% 100 ML IV SCH ×3 (02:10→18:16)
[2019-08-14] MEDS: HEPARIN 100 UNIT/ML 5ML FLUSH FLUSH PRN ×6 (03:05→23:03)
[2019-08-14 06:29] LABS: Hematocrit (blood only) 34.1 % (37-47); Hemoglobin 11.1 g/dL (12.0-16.0); Mean Corpuscular Hemoglobin 30.9 pg (25-34); Mean Corpuscular Hgb Conc 32.6 g/dL (32-36); Mean Platelet Volume 10.1 fL (7.4-10.4); Platelet Count 111 K/uL (130-400); RDW Coefficient of Variation 13.2 % (11.5-14.5); RDW Standard Deviation 46.1 fL (36.4-46.3); Red Blood Count 3.59 M/uL (4.2-5.4); White Blood Count 3.26 K/uL (4.8-10.8)
[2019-08-14 07:08] LABS: BUN Creatinine Ratio 36.8 (10-20); Blood Urea Nitrogen 10 mg/dl (7-18); Calcium 8.7 mg/dl (8.5-10.1); Carbon Dioxide 28 mmol/L (21-32); Chloride 109 mmol/L (98-107); Est GFR (African American) > 150.0; Est GFR (Non-African American) > 150.0; Glucose 86 mg/dl (70-99); Potassium 3.9 mmol/L (3.5-5.1); Sodium 141 mmol/L (136-145)
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
[2019-08-14] MEDS: GABAPENTIN 600 MG TAB PO SCH ×4 (08:06→20:26)
[2019-08-14] MEDS: DOCUSATE SODIUM 100 MG CAP PO SCH ×2 (08:06→20:27)
[2019-08-14] MEDS: guaiFENesin 600 MG TABCR PO SCH ×2 (08:07→20:27)
[2019-08-14] MEDS: BACLOFEN 10 MG TAB PO SCH ×4 (08:07→20:27)
[2019-08-14] MEDS: DANTROLENE SODIUM 25 MG CAP PO SCH ×3 (08:08→20:26)
[2019-08-14] MEDS: ASCORBIC ACID 500 MG TAB PO SCH ×2 (08:09→20:26)
[2019-08-14] MEDS: DULOXETINE HCL 60 MG CAP PO SCH ×2 (08:09→14:41)
[2019-08-14] MEDS: METHENAMINE HIPPURATE 1 GM TAB PO SCH ×2 (08:10→20:26)
[2019-08-14] MEDS: MIRABEGRON ER 25 MG TAB PO SCH (10:00)
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
[2019-08-14] MEDS: OXYCODONE/APAP 7.5/325MG TAB PO PRN ×2 (11:32→20:21)
[2019-08-14] MEDS ORDERED: RIVAROXABAN 20 MG TAB PO SCH (16:30)
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
[2019-08-14] MEDS: MAGNESIUM OXIDE 400 MG TAB PO SCH (20:26)
[2019-08-14] MEDS: MIRTAZAPINE TAB 15 MG TAB PO SCH (20:26)
[2019-08-15] MEDS: AZTREONAM 2,000 MG in DEXTROSE 5% 100 ML IV SCH ×3 (02:16→18:57)
[2019-08-15] MEDS: OXYCODONE/APAP 7.5/325MG TAB PO PRN ×3 (02:19→15:57)
[2019-08-15] MEDS: HEPARIN 100 UNIT/ML 5ML FLUSH FLUSH PRN ×8 (03:18→21:21)
[2019-08-15 06:59] LABS: Creatinine Clr Calc Pharmacy 247.5 ml/min; Est GFR (African American) > 150.0; Est GFR (Non-African American) > 150.0
[2019-08-15] MEDS ORDERED: BOTULINUM TOXIN TYPE A 100 UNIT VIAL XX SCH (07:00)
[2019-08-15] MEDS: MoRPHine SULFATE 2 MG/ML CARP IV PRN ×4 (07:50→21:21)
[2019-08-15] MEDS: DULOXETINE HCL 60 MG CAP PO SCH ×2 (07:51→14:20)
[2019-08-15] MEDS: DOCUSATE SODIUM 100 MG CAP PO SCH ×2 (08:43→21:26)
[2019-08-15] MEDS: BACLOFEN 10 MG TAB PO SCH ×4 (08:44→21:25)
[2019-08-15] MEDS: DANTROLENE SODIUM 25 MG CAP PO SCH ×3 (08:44→21:26)
[2019-08-15] MEDS: guaiFENesin 600 MG TABCR PO SCH ×2 (08:45→21:24)
[2019-08-15] MEDS: GABAPENTIN 600 MG TAB PO SCH ×4 (08:45→21:27)
[2019-08-15] MEDS: MIRABEGRON ER 25 MG TAB PO SCH (08:45)
[2019-08-15] MEDS: ASCORBIC ACID 500 MG TAB PO SCH ×2 (08:46→21:26)
[2019-08-15] MEDS: METHENAMINE HIPPURATE 1 GM TAB PO SCH ×2 (08:46→21:25)
--- NOTE | 2019-08-15 09:25 | Infectious Disease Progress Nt ---
Date of Service August 15, 2019 Assessment & Plan (1) Wound infection: can continue current abx, multiple allergies. would suggest eval with allergy for allergy testing as she could benefit from having other abx options. would give 7 days current therapy. (2) Urinary tract infection: Admission and Anticipated Discharge Date Admission Date: August 13, 2019 Subjective pt tolerating abx, afebrile. s/p botox injection, urine culture growing proteus as well. Results & Data ([facility]) Vital Signs (Past 12 Hours) Vital Signs Temp Pulse Resp BP BP Pulse Ox 08/15/19 07:14 36.6 C 69 18 124/87 97 08/14/19 23:15 93/56 L 08/14/19 23:09 36.7 C 68 14 84/55 L 97 Laboratory Results Microbiology 08/13/19 18:46 Urine,Clean Catch Urine Culture - Final Proteus mirabilis PG Care Time/CCT Total # of Minutes Spent Total Time Spent with Patient: Total time spent is greater than 50% in coordination of care (as documented) at patient's floor/unit and/or counseling patient: Coding Level of Care Code 09435 Subseq Hosp Care Lvl 1 Diagnoses Wound infection T14.8XXA; L08.9 Urinary tract infection N39.0
[2019-08-15] MEDS: RIVAROXABAN 20 MG TAB PO SCH (10:54)
--- NOTE | 2019-08-15 13:02 | Urology Progress Note ---
Date of Service August 15, 2019 Assessment & Plan (1) Painful bladder spasm: seems her leaks are more mechanical still due for botox soon will be done as outpatient resume her anticoagulation Present on Admission?: Yes Subjective Patient sitting up feeding herself lunch. She is very understanding of our reasons for postponing her botox injection in OR today. We will try to put her on for august 30, 2019. We will know more in the weeks ahead. Good news that on this more industrial air bed she is not leaking around her catheter at night here in the hospital. She thinks her bed at home makes her sink down further and might be making the urine travel up hill and the back pressure might be cusing the leaks. Review of Systems Review of Systems: All systems reviewed & are unremarkable except as noted in HPI & below no fevers no chills, no chest pain, no SOB, no seizures appetite good Physical Exam Constitutional: WD/WN, vitals as above + thin and healthy appearing Psychiatric: A+Ox3, euthymic affect Genitourinary: bonds draining light yellow clear urine Results & Data Vital Signs (Past 12 Hours) Vital Signs Temp Pulse Resp BP Pulse Ox 08/15/19 07:14 36.6 C 69 18 124/87 97
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
[2019-08-15] MEDS: MAGNESIUM OXIDE 400 MG TAB PO SCH (21:24)
[2019-08-15] MEDS: MIRTAZAPINE TAB 15 MG TAB PO SCH (21:25)
[2019-08-16] MEDS: OXYCODONE/APAP 7.5/325MG TAB PO PRN ×4 (00:20→22:46)
[2019-08-16] MEDS: MoRPHine SULFATE 2 MG/ML CARP IV PRN ×4 (02:07→18:24)
[2019-08-16] MEDS: AZTREONAM 2,000 MG in DEXTROSE 5% 100 ML IV SCH ×3 (02:08→18:24)
[2019-08-16] MEDS: HEPARIN 100 UNIT/ML 5ML FLUSH FLUSH PRN ×7 (03:03→19:42)
[2019-08-16 05:52] LABS: Creatinine Clr Calc Pharmacy 232.5 ml/min; Est GFR (African American) > 150.0; Est GFR (Non-African American) > 150.0
[2019-08-16] MEDS: DULOXETINE HCL 60 MG CAP PO SCH ×2 (08:01→14:24)
[2019-08-16] MEDS: DANTROLENE SODIUM 25 MG CAP PO SCH ×3 (09:22→21:11)
[2019-08-16] MEDS: DOCUSATE SODIUM 100 MG CAP PO SCH ×2 (09:22→21:11)
[2019-08-16] MEDS: BACLOFEN 10 MG TAB PO SCH ×4 (09:23→21:10)
[2019-08-16] MEDS: RIVAROXABAN 20 MG TAB PO SCH (09:23)
[2019-08-16] MEDS: MIRABEGRON ER 25 MG TAB PO SCH (09:24)
[2019-08-16] MEDS: guaiFENesin 600 MG TABCR PO SCH ×2 (09:24→21:11)
[2019-08-16] MEDS: GABAPENTIN 600 MG TAB PO SCH ×4 (09:24→21:12)
[2019-08-16] MEDS: METHENAMINE HIPPURATE 1 GM TAB PO SCH ×2 (09:24→21:10)
[2019-08-16] MEDS: ASCORBIC ACID 500 MG TAB PO SCH ×2 (09:25→21:12)
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
[2019-08-16] MEDS: MAGNESIUM OXIDE 400 MG TAB PO SCH (21:10)
[2019-08-16] MEDS: MIRTAZAPINE TAB 15 MG TAB PO SCH (21:12)
[2019-08-17] MEDS: AZTREONAM 2,000 MG in DEXTROSE 5% 100 ML IV SCH ×2 (02:23→10:32)
[2019-08-17] MEDS: HEPARIN 100 UNIT/ML 5ML FLUSH FLUSH PRN ×4 (03:26→11:40)
[2019-08-17] MEDS ORDERED: KETOROLAC TROMETHAMINE 15 MG/ML VIAL IV PRN (03:46)
[2019-08-17] MEDS ORDERED: KETOROLAC TROMETHAMINE 15 MG/ML VIAL IV ONE (03:51)
[2019-08-17 07:04] LABS: Creatinine Clr Calc Pharmacy 333.5 ml/min; Est GFR (African American) > 150.0; Est GFR (Non-African American) > 150.0
[2019-08-17] MEDS: DULOXETINE HCL 60 MG CAP PO SCH (08:23)
[2019-08-17] MEDS: OXYCODONE/APAP 7.5/325MG TAB PO PRN (08:23)
[2019-08-17] MEDS: RIVAROXABAN 20 MG TAB PO SCH (09:12)
[2019-08-17] MEDS: ASCORBIC ACID 500 MG TAB PO SCH (09:12)
[2019-08-17] MEDS: GABAPENTIN 600 MG TAB PO SCH (09:12)
[2019-08-17] MEDS: MIRABEGRON ER 25 MG TAB PO SCH (09:12)
[2019-08-17] MEDS: DANTROLENE SODIUM 25 MG CAP PO SCH (09:13)
[2019-08-17] MEDS: guaiFENesin 600 MG TABCR PO SCH (09:13)
[2019-08-17] MEDS: METHENAMINE HIPPURATE 1 GM TAB PO SCH (09:14)
[2019-08-17] MEDS: BACLOFEN 10 MG TAB PO SCH (09:15)
[2019-08-17] MEDS: DOCUSATE SODIUM 100 MG CAP PO SCH (09:15)
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
== END 2019-08-17 13:51 | disposition home health service (06) | DRG 592 ==
LOC: ED 14:17 → SUATTDRO 17:50 → 3W 17:50

== ENCOUNTER 2019-09-25 08:54 | Inpatient (IN) ==
[2019-09-25] MEDS ORDERED: ZOLPIDEM TARTRATE 5 MG TAB PO PRN (14:30)
[2019-09-25] MEDS ORDERED: MELATONIN 3 MG TAB PO PRN (14:30)
[2019-09-25] MEDS ORDERED: NYSTATIN POWDER 15GM BTL EXT PRN (14:30)
[2019-09-25] MEDS ORDERED: guaiFENesin 600 MG TABCR PO PRN (14:30)
[2019-09-25] MEDS ORDERED: FLUTICASONE PROPIONATE NA SPR 16 GM BTL NAE PRN (14:30)
[2019-09-25] MEDS ORDERED: LORazepam 0.5 MG TAB PO PRN (14:30)
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
[2019-09-25 14:55] LABS: Basophils # (auto) 0.01 K/uL (0-0.2); Basophils % (auto) 0.1 %; Eosinophils # (auto) 0.21 K/uL (0-0.5); Hematocrit (blood only) 40.5 % (37-47); Hemoglobin 13.2 g/dL (12.0-16.0); Immature Granulocytes # (auto) 0.02 K/uL (0.00-0.02); Immature Granulocytes % (auto) 0.3 %; Lymphocytes # (auto) 2.96 K/uL (1.2-3.4); Lymphocytes % (auto) 41.7 %; Mean Corpuscular Hemoglobin 30.2 pg (25-34); Mean Corpuscular Hgb Conc 32.6 g/dL (32-36); Mean Corpuscular Volume 92.7 fL (80-100); Mean Platelet Volume 10.4 fL (7.4-10.4); Monocytes # (auto) 0.64 K/uL (0.11-0.59); Neutrophils # (auto) 3.26 K/uL (1.4-6.5); Neutrophils % (auto) 45.9 %; Platelet Count 147 K/uL (130-400); RDW Coefficient of Variation 13.2 % (11.5-14.5); Red Blood Count 4.37 M/uL (4.2-5.4)
[2019-09-25 15:14] LABS: Alanine Aminotransferase 24 U/L (12-78); Albumin Level 3.4 gm/dl (3.4-5.0); Aspartate Aminotransferase 18 U/L (15-37); BUN Creatinine Ratio 31.1 (10-20); Blood Urea Nitrogen 11 mg/dl (7-18); Calcium 9.3 mg/dl (8.5-10.1); Carbon Dioxide 28 mmol/L (21-32); Chloride 107 mmol/L (98-107); Est GFR (African American) > 150.0; Est GFR (Non-African American) > 150.0; Glucose 115 mg/dl (70-99); Potassium 3.6 mmol/L (3.5-5.1); Sodium 141 mmol/L (136-145)
[2019-09-25] MEDS ORDERED: MoRPHine SULFATE 4 MG/ML 1 ML CARP\\VIAL IV STA (15:15)
[2019-09-25 15:17] LABS: Alkaline Phosphatase 98 U/L (45-117); Bilirubin,Total 0.3 mg/dl (0.2-1); Globulin 3.5 gm/dl (2.5-4.0); Total Protein 6.9 gm/dl (6.4-8.2)
[2019-09-25] MEDS ORDERED: MoRPHine SULFATE 4 MG/ML 1 ML CARP\\VIAL ONE (15:18)
[2019-09-25] MEDS ORDERED: HEPARIN 100 UNIT/ML 5ML FLUSH ONE ×2 (15:20→17:24)
[2019-09-25] MEDS: ASCORBIC ACID 500 MG TAB PO SCH ×2 (16:23→20:46)
[2019-09-25] MEDS: AZTREONAM 2,000 MG in DEXTROSE 5% 100 ML IV SCH ×2 (16:26→23:51)
[2019-09-25] MEDS: DULOXETINE HCL 60 MG CAP PO SCH (16:27)
[2019-09-25] MEDS: GABAPENTIN 600 MG TAB PO SCH ×2 (16:27→20:46)
[2019-09-25] MEDS: BACLOFEN 10 MG TAB PO SCH ×2 (16:27→20:46)
[2019-09-25] MEDS: BACLOFEN 20 MG TAB PO SCH ×2 (16:27→20:46)
[2019-09-25] MEDS: GABAPENTIN 300 MG CAP PO SCH ×2 (16:28→20:46)
[2019-09-25] MEDS: OXYCODONE/APAP 7.5/325MG TAB PO PRN (18:22)
[2019-09-25 18:47] LABS: Appearance Urine Turbid (Clear); Bacteria Urine Automated 1+ (Negative); Bilirubin Urine Negative (Negative); Blood Urine Negative (Negative); Color Urine Dark Yellow; Glucose Urine UA Negative (Negative); Ketones Urine Negative (Negative); Leukocyte Esterase Urine 1+ (Negative); Nitrite Urine Positive (Negative); Protein Urine Negative (Negative); Specific Gravity Urine 1.021 (1.000-1.030); Urobilinogen Urine Negative (Negative); pH Urine 7.5 (4.5-7.5)
[2019-09-25 19:03] LABS: RBC Urine Automated 0-4 /hpf (0-4)
[2019-09-25 19:04] LABS: Triple Phosphate Crystal Urine Present (None Prsent)
[2019-09-25] MEDS: DANTROLENE SODIUM 25 MG CAP PO SCH (20:46)
[2019-09-25] MEDS: MAGNESIUM OXIDE 400 MG TAB PO SCH (20:46)
[2019-09-25] MEDS: METHENAMINE HIPPURATE 1 GM TAB PO SCH (20:46)
[2019-09-25] MEDS: MIRTAZAPINE TAB 15 MG TAB PO SCH (20:46)
[2019-09-25] MEDS: DOCUSATE SODIUM 100 MG CAP PO SCH (20:46)
[2019-09-25] MEDS ORDERED: SOD PHOSPHATE/SOD BIPHOSPHATE ENEMA 132 ML BTL PR SCH (21:00)
[2019-09-26] MEDS: OXYCODONE/APAP 7.5/325MG TAB PO PRN ×4 (00:47→23:15)
[2019-09-26] MEDS: HEPARIN 100 UNIT/ML 5ML FLUSH FLUSH PRN ×3 (00:55→16:46)
[2019-09-26 05:46] LABS: Hematocrit (blood only) 34.9 % (37-47); Hemoglobin 11.4 g/dL (12.0-16.0); Mean Corpuscular Hemoglobin 30.1 pg (25-34); Mean Corpuscular Hgb Conc 32.7 g/dL (32-36); Mean Corpuscular Volume 92.1 fL (80-100); Platelet Count 124 K/uL (130-400); RDW Coefficient of Variation 13.3 % (11.5-14.5); RDW Standard Deviation 44.4 fL (36.4-46.3); Red Blood Count 3.79 M/uL (4.2-5.4); White Blood Count 3.07 K/uL (4.8-10.8)
[2019-09-26 06:21] LABS: BUN Creatinine Ratio 43.9 (10-20); Blood Urea Nitrogen 10 mg/dl (7-18); Calcium 8.6 mg/dl (8.5-10.1); Carbon Dioxide 26 mmol/L (21-32); Chloride 109 mmol/L (98-107); Creatinine Clr Calc Pharmacy 331.8 ml/min; Est GFR (African American) > 150.0; Est GFR (Non-African American) > 150.0; Glucose 90 mg/dl (70-99); Potassium 3.5 mmol/L (3.5-5.1); Sodium 140 mmol/L (136-145)
[2019-09-26] MEDS: AZTREONAM 2,000 MG in DEXTROSE 5% 100 ML IV SCH ×2 (08:12→15:22)
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
[2019-09-26] MEDS: GABAPENTIN 600 MG TAB PO SCH ×4 (09:19→20:59)
[2019-09-26] MEDS: GABAPENTIN 300 MG CAP PO SCH ×4 (09:19→20:59)
[2019-09-26] MEDS: BACLOFEN 10 MG TAB PO SCH ×4 (09:19→20:59)
[2019-09-26] MEDS: DOCUSATE SODIUM 100 MG CAP PO SCH ×2 (09:19→20:59)
[2019-09-26] MEDS: DULOXETINE HCL 60 MG CAP PO SCH ×2 (09:19→15:22)
[2019-09-26] MEDS: BACLOFEN 20 MG TAB PO SCH ×4 (09:19→20:59)
[2019-09-26] MEDS: SACCHAROMYCES BOULARDII 250 MG CAP PO SCH (09:24)
[2019-09-26] MEDS: METHENAMINE HIPPURATE 1 GM TAB PO SCH ×2 (09:24→20:59)
[2019-09-26] MEDS: DANTROLENE SODIUM 25 MG CAP PO SCH ×3 (09:24→20:59)
[2019-09-26] MEDS: ASCORBIC ACID 500 MG TAB PO SCH ×2 (09:24→20:59)
[2019-09-26] MEDS: COLLAGENASE OINT 30 GM TUBE TOP SCH (09:32)
[2019-09-26] MEDS ORDERED: OXYCODONE HCL IR 5 MG TAB (IMMEDIATE RELEASE) PO STA (11:05)
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
[2019-09-26] MEDS: RIVAROXABAN 20 MG TAB PO SCH (15:23)
[2019-09-26] MEDS ORDERED: POTASSIUM CHLORIDE 20 MEQ TABCR PO STA (17:44)
[2019-09-26] MEDS: MAGNESIUM OXIDE 400 MG TAB PO SCH (20:59)
[2019-09-26] MEDS: MIRTAZAPINE TAB 15 MG TAB PO SCH (21:00)
[2019-09-26] MEDS: SOD PHOSPHATE/SOD BIPHOSPHATE ENEMA 132 ML BTL PR SCH (21:00)
[2019-09-27] MEDS: AZTREONAM 2,000 MG in DEXTROSE 5% 100 ML IV SCH ×3 (00:26→16:17)
[2019-09-27] MEDS: HEPARIN 100 UNIT/ML 5ML FLUSH FLUSH PRN ×3 (01:25→17:32)
[2019-09-27 05:46] LABS: Hematocrit (blood only) 37.1 % (37-47); Mean Corpuscular Hemoglobin 29.8 pg (25-34); Mean Corpuscular Hgb Conc 32.3 g/dL (32-36); Mean Corpuscular Volume 92.1 fL (80-100); Mean Platelet Volume 10.1 fL (7.4-10.4); Platelet Count 143 K/uL (130-400); RDW Coefficient of Variation 13.1 % (11.5-14.5); RDW Standard Deviation 44.3 fL (36.4-46.3); Red Blood Count 4.03 M/uL (4.2-5.4); White Blood Count 4.02 K/uL (4.8-10.8)
[2019-09-27 06:13] LABS: BUN Creatinine Ratio 43.8 (10-20); Blood Urea Nitrogen 10 mg/dl (7-18); Calcium 8.8 mg/dl (8.5-10.1); Carbon Dioxide 27 mmol/L (21-32); Chloride 107 mmol/L (98-107); Creatinine Clr Calc Pharmacy 317.9 ml/min; Est GFR (African American) > 150.0; Est GFR (Non-African American) > 150.0; Glucose 95 mg/dl (70-99); Magnesium 2.1 mg/dl (1.8-2.4); Potassium 3.8 mmol/L (3.5-5.1); Sodium 139 mmol/L (136-145)
[2019-09-27 06:14] LABS: Phosphorus 3.7 mg/dl (2.5-4.9)
[2019-09-27] MEDS: BACLOFEN 10 MG TAB PO SCH ×4 (09:00→20:39)
[2019-09-27] MEDS: SACCHAROMYCES BOULARDII 250 MG CAP PO SCH (09:01)
[2019-09-27] MEDS: GABAPENTIN 600 MG TAB PO SCH ×4 (09:01→20:40)
[2019-09-27] MEDS: METHENAMINE HIPPURATE 1 GM TAB PO SCH ×2 (09:01→20:41)
[2019-09-27] MEDS: DULOXETINE HCL 60 MG CAP PO SCH ×2 (09:01→16:09)
[2019-09-27] MEDS: ASCORBIC ACID 500 MG TAB PO SCH ×2 (09:02→20:42)
[2019-09-27] MEDS: DANTROLENE SODIUM 25 MG CAP PO SCH ×3 (09:02→20:38)
[2019-09-27] MEDS: GABAPENTIN 300 MG CAP PO SCH ×4 (09:02→20:40)
[2019-09-27] MEDS: DOCUSATE SODIUM 100 MG CAP PO SCH ×2 (09:03→20:37)
[2019-09-27] MEDS: BACLOFEN 20 MG TAB PO SCH ×4 (09:03→20:39)
[2019-09-27] MEDS: COLLAGENASE OINT 30 GM TUBE TOP SCH (09:03)
[2019-09-27] MEDS: OXYCODONE/APAP 7.5/325MG TAB PO PRN ×3 (10:10→23:32)
[2019-09-27] MEDS ORDERED: PROMETHAZINE HCL 12.5 MG in SODIUM CHLORIDE 0.9% 50 ML IV PRN (12:13)
[2019-09-27] MEDS: RIVAROXABAN 20 MG TAB PO SCH (16:09)
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
[2019-09-27] MEDS: MAGNESIUM OXIDE 400 MG TAB PO SCH (20:39)
[2019-09-27] MEDS: MIRTAZAPINE TAB 15 MG TAB PO SCH (20:40)
[2019-09-28] MEDS: SOD PHOSPHATE/SOD BIPHOSPHATE ENEMA 132 ML BTL PR SCH ×2 (00:08→20:50)
[2019-09-28] MEDS: AZTREONAM 2,000 MG in DEXTROSE 5% 100 ML IV SCH ×3 (00:50→15:47)
[2019-09-28] MEDS: HEPARIN 100 UNIT/ML 5ML FLUSH FLUSH PRN ×3 (02:10→16:56)
[2019-09-28] MEDS: DULOXETINE HCL 60 MG CAP PO SCH ×2 (07:32→13:58)
[2019-09-28] MEDS: OXYCODONE/APAP 7.5/325MG TAB PO PRN ×2 (07:32→13:58)
[2019-09-28] MEDS: DANTROLENE SODIUM 25 MG CAP PO SCH ×3 (08:56→20:46)
[2019-09-28] MEDS: COLLAGENASE OINT 30 GM TUBE TOP SCH (08:57)
[2019-09-28] MEDS: GABAPENTIN 300 MG CAP PO SCH ×4 (08:57→20:47)
[2019-09-28] MEDS: ASCORBIC ACID 500 MG TAB PO SCH ×2 (08:57→20:48)
[2019-09-28] MEDS: BACLOFEN 20 MG TAB PO SCH ×4 (08:57→20:47)
[2019-09-28] MEDS: GABAPENTIN 600 MG TAB PO SCH ×4 (08:57→20:49)
[2019-09-28] MEDS: SACCHAROMYCES BOULARDII 250 MG CAP PO SCH (08:57)
[2019-09-28] MEDS: DOCUSATE SODIUM 100 MG CAP PO SCH ×2 (08:57→20:46)
[2019-09-28] MEDS: BACLOFEN 10 MG TAB PO SCH ×4 (08:57→20:49)
[2019-09-28] MEDS: METHENAMINE HIPPURATE 1 GM TAB PO SCH ×2 (08:57→20:48)
[2019-09-28] MEDS ORDERED: OXYCODONE HCL IR 5 MG TAB (IMMEDIATE RELEASE) PO STA (11:46)
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
[2019-09-28] MEDS: RIVAROXABAN 20 MG TAB PO SCH (15:47)
[2019-09-28] MEDS: MIRTAZAPINE TAB 15 MG TAB PO SCH (20:48)
[2019-09-28] MEDS: MAGNESIUM OXIDE 400 MG TAB PO SCH (20:49)
[2019-09-29] MEDS: OXYCODONE/APAP 7.5/325MG TAB PO PRN ×4 (00:16→22:05)
[2019-09-29] MEDS: AZTREONAM 2,000 MG in DEXTROSE 5% 100 ML IV SCH ×3 (00:17→16:06)
[2019-09-29] MEDS: HEPARIN 100 UNIT/ML 5ML FLUSH FLUSH PRN ×4 (01:32→17:17)
[2019-09-29] MEDS: DULOXETINE HCL 60 MG CAP PO SCH ×2 (07:34→14:13)
[2019-09-29] MEDS: METHENAMINE HIPPURATE 1 GM TAB PO SCH ×2 (08:49→21:12)
[2019-09-29] MEDS: DANTROLENE SODIUM 25 MG CAP PO SCH ×3 (08:49→21:09)
[2019-09-29] MEDS: SACCHAROMYCES BOULARDII 250 MG CAP PO SCH (08:49)
[2019-09-29] MEDS: ASCORBIC ACID 500 MG TAB PO SCH ×2 (08:50→21:12)
[2019-09-29] MEDS: DOCUSATE SODIUM 100 MG CAP PO SCH ×2 (08:50→21:09)
[2019-09-29] MEDS: GABAPENTIN 600 MG TAB PO SCH ×4 (08:50→21:11)
[2019-09-29] MEDS: GABAPENTIN 300 MG CAP PO SCH ×4 (08:50→21:11)
[2019-09-29] MEDS: BACLOFEN 20 MG TAB PO SCH ×4 (08:50→21:10)
[2019-09-29] MEDS: BACLOFEN 10 MG TAB PO SCH ×4 (08:50→21:10)
[2019-09-29] MEDS: COLLAGENASE OINT 30 GM TUBE TOP SCH (08:51)
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
[2019-09-29] MEDS: RIVAROXABAN 20 MG TAB PO SCH (16:04)
[2019-09-29] MEDS: SOD PHOSPHATE/SOD BIPHOSPHATE ENEMA 132 ML BTL PR SCH (21:10)
[2019-09-29] MEDS: MAGNESIUM OXIDE 400 MG TAB PO SCH (21:11)
[2019-09-29] MEDS: MIRTAZAPINE TAB 15 MG TAB PO SCH (21:12)
[2019-09-30] MEDS: AZTREONAM 2,000 MG in DEXTROSE 5% 100 ML IV SCH ×3 (00:22→16:42)
[2019-09-30] MEDS ORDERED: MoRPHine SULFATE 4 MG/ML 1 ML CARP\\VIAL IV STA (00:35)
[2019-09-30] MEDS: HEPARIN 100 UNIT/ML 5ML FLUSH FLUSH PRN ×3 (01:27→17:53)
[2019-09-30] MEDS: DULOXETINE HCL 60 MG CAP PO SCH ×2 (09:11→14:49)
[2019-09-30] MEDS: DOCUSATE SODIUM 100 MG CAP PO SCH ×2 (09:12→21:20)
[2019-09-30] MEDS: DANTROLENE SODIUM 25 MG CAP PO SCH ×3 (09:13→21:20)
[2019-09-30] MEDS: BACLOFEN 20 MG TAB PO SCH ×4 (09:14→21:20)
[2019-09-30] MEDS: BACLOFEN 10 MG TAB PO SCH ×4 (09:14→21:20)
[2019-09-30] MEDS: GABAPENTIN 300 MG CAP PO SCH ×4 (09:14→21:21)
[2019-09-30] MEDS: COLLAGENASE OINT 30 GM TUBE TOP SCH (09:15)
[2019-09-30] MEDS: METHENAMINE HIPPURATE 1 GM TAB PO SCH ×2 (09:15→21:21)
[2019-09-30] MEDS: ASCORBIC ACID 500 MG TAB PO SCH ×2 (09:15→21:21)
[2019-09-30] MEDS: GABAPENTIN 600 MG TAB PO SCH ×4 (09:15→21:21)
[2019-09-30] MEDS: OXYCODONE/APAP 7.5/325MG TAB PO PRN ×3 (09:34→21:21)
[2019-09-30] MEDS: SACCHAROMYCES BOULARDII 250 MG CAP PO SCH (09:35)
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
[2019-09-30] MEDS: RIVAROXABAN 20 MG TAB PO SCH (16:41)
[2019-09-30] MEDS: ACETAMINOPHEN 325 MG TAB PO PRN (16:55)
[2019-09-30] MEDS: MIRTAZAPINE TAB 15 MG TAB PO SCH (21:20)
[2019-09-30] MEDS: MAGNESIUM OXIDE 400 MG TAB PO SCH (21:21)
[2019-09-30] MEDS: SOD PHOSPHATE/SOD BIPHOSPHATE ENEMA 132 ML BTL PR SCH (21:45)
[2019-10-01] MEDS: ACETAMINOPHEN 325 MG TAB PO PRN (00:07)
[2019-10-01] MEDS: AZTREONAM 2,000 MG in DEXTROSE 5% 100 ML IV SCH ×4 (00:08→23:46)
[2019-10-01] MEDS: HEPARIN 100 UNIT/ML 5ML FLUSH FLUSH PRN ×3 (01:14→17:27)
[2019-10-01] MEDS: OXYCODONE/APAP 7.5/325MG TAB PO PRN ×4 (08:36→22:39)
[2019-10-01] MEDS: METHENAMINE HIPPURATE 1 GM TAB PO SCH ×2 (08:37→20:32)
[2019-10-01] MEDS: ASCORBIC ACID 500 MG TAB PO SCH ×2 (08:37→20:32)
[2019-10-01] MEDS: GABAPENTIN 600 MG TAB PO SCH ×4 (08:37→20:32)
[2019-10-01] MEDS: BACLOFEN 10 MG TAB PO SCH ×4 (08:38→20:32)
[2019-10-01] MEDS: DOCUSATE SODIUM 100 MG CAP PO SCH ×2 (08:38→20:33)
[2019-10-01] MEDS: GABAPENTIN 300 MG CAP PO SCH ×4 (08:38→20:32)
[2019-10-01] MEDS: BACLOFEN 20 MG TAB PO SCH ×4 (08:38→20:32)
[2019-10-01] MEDS: DANTROLENE SODIUM 25 MG CAP PO SCH ×3 (08:38→20:32)
[2019-10-01] MEDS: DULOXETINE HCL 60 MG CAP PO SCH ×2 (08:39→13:58)
[2019-10-01] MEDS: COLLAGENASE OINT 30 GM TUBE TOP SCH (08:40)
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
[2019-10-01] MEDS: RIVAROXABAN 20 MG TAB PO SCH (16:21)
[2019-10-01] MEDS: MIRTAZAPINE TAB 15 MG TAB PO SCH (20:32)
[2019-10-01] MEDS: MAGNESIUM OXIDE 400 MG TAB PO SCH (20:32)
[2019-10-01] MEDS: SOD PHOSPHATE/SOD BIPHOSPHATE ENEMA 132 ML BTL PR SCH (22:46)
[2019-10-02] MEDS: HEPARIN 100 UNIT/ML 5ML FLUSH FLUSH PRN ×4 (00:46→17:01)
[2019-10-02 05:31] LABS: Basophils # (auto) 0.01 K/uL (0-0.2); Basophils % (auto) 0.2 %; Eosinophils # (auto) 0.17 K/uL (0-0.5); Eosinophils % (auto) 3.7 %; Hematocrit (blood only) 37.2 % (37-47); Immature Granulocytes # (auto) 0.03 K/uL (0.00-0.02); Immature Granulocytes % (auto) 0.7 %; Lymphocytes # (auto) 2.11 K/uL (1.2-3.4); Mean Corpuscular Hgb Conc 32.3 g/dL (32-36); Mean Platelet Volume 10.1 fL (7.4-10.4); Monocytes # (auto) 0.56 K/uL (0.11-0.59); Monocytes % (auto) 12.2 %; Neutrophils # (auto) 1.71 K/uL (1.4-6.5); Neutrophils % (auto) 37.2 %; Platelet Count 161 K/uL (130-400); RDW Coefficient of Variation 13.3 % (11.5-14.5); RDW Standard Deviation 45.5 fL (36.4-46.3); White Blood Count 4.59 K/uL (4.8-10.8)
[2019-10-02 06:02] LABS: BUN Creatinine Ratio 43.3 (10-20); Blood Urea Nitrogen 13 mg/dl (7-18); Calcium 8.7 mg/dl (8.5-10.1); Carbon Dioxide 28 mmol/L (21-32); Chloride 108 mmol/L (98-107); Creatinine Clr Calc Pharmacy 263.1 ml/min; Est GFR (African American) > 150.0; Est GFR (Non-African American) > 150.0; Glucose 91 mg/dl (70-99); Magnesium 2.1 mg/dl (1.8-2.4); Phosphorus 4.4 mg/dl (2.5-4.9); Potassium 3.9 mmol/L (3.5-5.1); Sodium 141 mmol/L (136-145)
[2019-10-02] MEDS: OXYCODONE/APAP 7.5/325MG TAB PO PRN ×3 (07:12→17:06)
[2019-10-02] MEDS: ASCORBIC ACID 500 MG TAB PO SCH (09:18)
[2019-10-02] MEDS: GABAPENTIN 600 MG TAB PO SCH ×3 (09:18→16:08)
[2019-10-02] MEDS: DANTROLENE SODIUM 25 MG CAP PO SCH ×2 (09:19→13:19)
[2019-10-02] MEDS: BACLOFEN 20 MG TAB PO SCH ×3 (09:19→16:07)
[2019-10-02] MEDS: DOCUSATE SODIUM 100 MG CAP PO SCH (09:19)
[2019-10-02] MEDS: DULOXETINE HCL 60 MG CAP PO SCH ×2 (09:20→14:32)
[2019-10-02] MEDS: AZTREONAM 2,000 MG in DEXTROSE 5% 100 ML IV SCH ×2 (09:20→16:01)
[2019-10-02] MEDS: COLLAGENASE OINT 30 GM TUBE TOP SCH (09:21)
[2019-10-02] MEDS: BACLOFEN 10 MG TAB PO SCH ×3 (09:22→16:08)
[2019-10-02] MEDS: GABAPENTIN 300 MG CAP PO SCH ×3 (09:23→16:08)
[2019-10-02] MEDS: METHENAMINE HIPPURATE 1 GM TAB PO SCH (09:23)
--- NOTE | 2019-10-02 11:35 | Surgery Progress Note ---
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 There was some slough which did require debridement. 4% topical lidocaine was applied. With patient's permission, #5 curette was use d to debride the wound of nonviable skin, subcutaneous fat, muscle with healthy bleeding tissue noted at the wound periphery. This represented non-excisional debridement less than 20 cm. Plan is for patient to be discharged home. Silver foam dressing was placed today. She will come to the wound care center on for VAC change. Antibiotics are per infectious disease. Discussed that the issues related to her leaking Bonilla and problems with her air mattress at home likely contributed to worsening of this wound since she grew Proteus in both her urine and wound over the last several weeks. She does have a new mattress and is not experiencing issues with her Bonilla. Subjective Elenita is seen today for follow-up. She is now hospital day 7 for placement of irrigating wound VAC for worsening infected left stage IV ischial pressure ulceration. She is doing okay today, does note her pain has seemed worse recently, and that the pain is worse when the irrigation fluid is on. Review of Systems Integumentary: as per Subjective / HPI Physical Exam Constitutional: WD/WN, vitals as above Skin: no rashes, warm and dry wound 1.8 x 2.0 cm in size, left buttock. Wound size is smaller, continues to have an area of tunneling now decreased to 3.5 cm in depth. Wound continues to probe to bone (ishium). 

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
--- NOTE | 2019-10-02 14:59 | Wound Progress Note ---
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 Dr. Summers saw patient earlier today and did a bedside debridement. We will change patient to a regular wound VAC with silver foam. Patient be discharged home and continue with conservative treatment. We will see patient in the office with Dr. Summers. Thank for allow me to participate in the care of this patient. Please hesitate to call with any questions. Subjective Patient seen at bedside. She is completed 2 cycles with the irrigating wound VAC. She saw Dr. Summers earlier today who did a bedside debridement. Plan is for application of wound VAC with silver foam and continue conservative treatment. Review of Systems Review of Systems: All systems reviewed & are unremarkable except as noted in HPI & below Physical Exam Skin: Wound as measured in nursing documentation. Patient status post debridement by Dr. Summers earlier today. 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
[2019-10-02] MEDS ORDERED: AZTREONAM 2,000 MG in DEXTROSE 5% 100 ML IV STA (15:31)
[2019-10-02] MEDS: RIVAROXABAN 20 MG TAB PO SCH (16:07)
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
== END 2019-10-02 18:02 | disposition home health service (06) | DRG 592 ==
LOC: 3E 13:35 → SUATTDRO 13:35

== ENCOUNTER 2020-01-19 11:57 | Inpatient (IN) ==
[2020-01-19] MEDS ORDERED: ONDANSETRON INJ 2 MG/ML 2 ML VIAL IV PRN (12:09)
[2020-01-19] MEDS ORDERED: POLYETHYLENE (MIRALAX) 17 GM PACK PO PRN (12:09)
[2020-01-19] MEDS ORDERED: MAGNESIUM HYDROXIDE SUSP 30 ML UDC PO PRN (12:09)
[2020-01-19] MEDS ORDERED: ALUMINUM/MAGNESIUM SUSP 30 ML UDC PO PRN (12:09)
[2020-01-19] MEDS ORDERED: NYSTATIN POWDER 15GM BTL EXT PRN (14:19)
[2020-01-19] MEDS ORDERED: FLUTICASONE PROPIONATE NA SPR 16 GM BTL PRN (14:19)
[2020-01-19] MEDS ORDERED: CYCLOBENZAPRINE HCL 5 MG TAB PO PRN (14:19)
[2020-01-19] MEDS ORDERED: ZOLPIDEM TARTRATE 5 MG TAB PO PRN (14:19)
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
[2020-01-19 15:25] LABS: Mean Platelet Volume 9.8 fL (7.4-10.4); Platelet Count 150 K/uL (130-400)
[2020-01-19 15:34] LABS: Hematocrit (blood only) 37.1 % (37-47); Hemoglobin 11.8 g/dL (12.0-16.0); Mean Corpuscular Hemoglobin 28.2 pg (25-34); Mean Corpuscular Volume 88.5 fL (80-100); RDW Coefficient of Variation 14.3 % (11.5-14.5); RDW Standard Deviation 46.5 fL (36.4-46.3); Red Blood Count 4.19 M/uL (4.2-5.4); White Blood Count 7.36 K/uL (4.8-10.8)
[2020-01-19 15:44] LABS: Basophils # (auto) 0.01 K/uL (0-0.2); Basophils % (auto) 0.1 %; Eosinophils # (auto) 0.17 K/uL (0-0.5); Eosinophils % (auto) 2.3 %; Immature Granulocytes # (auto) 0.02 K/uL (0.00-0.02); Immature Granulocytes % (auto) 0.3 %; Lymphocytes # (auto) 1.65 K/uL (1.2-3.4); Lymphocytes % (auto) 22.4 %; Monocytes # (auto) 0.64 K/uL (0.11-0.59); Monocytes % (auto) 8.7 %; Neutrophils # (auto) 4.87 K/uL (1.4-6.5); Neutrophils % (auto) 66.2 %
[2020-01-19 15:45] LABS: BUN Creatinine Ratio 19.1 (10-20); Blood Urea Nitrogen 8 mg/dl (7-18); Calcium 9.1 mg/dl (8.5-10.1); Carbon Dioxide 29 mmol/L (21-32); Chloride 105 mmol/L (98-107); Creatinine Clr Calc Pharmacy 189.1 ml/min; Est GFR (African American) > 150.0; Est GFR (Non-African American) 142.7; Glucose 95 mg/dl (70-99); Sodium 138 mmol/L (136-145)
[2020-01-19] MEDS: OXYCODONE/APAP 7.5/325MG TAB PO PRN (17:05)
[2020-01-19] MEDS: DULOXETINE HCL 60 MG CAP PO SCH (17:06)
[2020-01-19] MEDS: GABAPENTIN 600 MG TAB PO SCH ×2 (17:07→21:33)
[2020-01-19] MEDS: GABAPENTIN 300 MG CAP PO SCH ×2 (17:07→21:31)
[2020-01-19] MEDS: BACLOFEN 10 MG TAB PO SCH ×2 (17:08→21:35)
[2020-01-19] MEDS: BACLOFEN 20 MG TAB PO SCH ×2 (17:08→21:32)
[2020-01-19] MEDS: HEPARIN 100 UNIT/ML 5ML FLUSH FLUSH PRN (17:53)
[2020-01-19] MEDS: MELATONIN 3 MG TAB PO PRN (21:30)
[2020-01-19] MEDS: SOD PHOSPHATE/SOD BIPHOSPHATE ENEMA 132 ML BTL PR SCH (21:30)
[2020-01-19] MEDS: DOCUSATE SODIUM 100 MG CAP PO SCH (21:30)
[2020-01-19] MEDS: guaiFENesin 600 MG TABCR PO SCH (21:31)
[2020-01-19] MEDS: MIRTAZAPINE TAB 15 MG TAB PO SCH (21:32)
[2020-01-19] MEDS: MAGNESIUM OXIDE 400 MG TAB PO SCH (21:33)
[2020-01-19] MEDS: METHENAMINE HIPPURATE 1 GM TAB PO SCH (21:34)
[2020-01-19] MEDS: DANTROLENE SODIUM 25 MG CAP PO SCH (21:34)
[2020-01-19] MEDS: ASCORBIC ACID 500 MG TAB PO SCH (21:35)
[2020-01-20] MEDS: HEPARIN 100 UNIT/ML 5ML FLUSH FLUSH PRN (06:09)
[2020-01-20 06:32] LABS: Hematocrit (blood only) 37.3 % (37-47); Hemoglobin 11.9 g/dL (12.0-16.0); Mean Corpuscular Hemoglobin 28.8 pg (25-34); Mean Corpuscular Hgb Conc 31.9 g/dL (32-36); Mean Corpuscular Volume 90.3 fL (80-100); Mean Platelet Volume 10.2 fL (7.4-10.4); Platelet Count 160 K/uL (130-400); RDW Coefficient of Variation 14.6 % (11.5-14.5); RDW Standard Deviation 48.3 fL (36.4-46.3); Red Blood Count 4.13 M/uL (4.2-5.4); White Blood Count 6.53 K/uL (4.8-10.8)
[2020-01-20 07:07] LABS: BUN Creatinine Ratio 23.7 (10-20); Blood Urea Nitrogen 7 mg/dl (7-18); Calcium 8.7 mg/dl (8.5-10.1); Carbon Dioxide 29 mmol/L (21-32); Chloride 107 mmol/L (98-107); Creatinine Clr Calc Pharmacy 252.1 ml/min; Est GFR (African American) > 150.0; Est GFR (Non-African American) > 150.0; Glucose 91 mg/dl (70-99); Potassium 3.9 mmol/L (3.5-5.1); Sodium 140 mmol/L (136-145)
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
[2020-01-20] MEDS: ASCORBIC ACID 500 MG TAB PO SCH ×2 (08:41→21:43)
[2020-01-20] MEDS: guaiFENesin 600 MG TABCR PO SCH ×2 (08:42→21:37)
[2020-01-20] MEDS: GABAPENTIN 300 MG CAP PO SCH ×4 (08:42→21:36)
[2020-01-20] MEDS: BACLOFEN 20 MG TAB PO SCH ×4 (08:42→21:36)
[2020-01-20] MEDS: BACLOFEN 10 MG TAB PO SCH ×4 (08:42→21:35)
[2020-01-20] MEDS: GABAPENTIN 600 MG TAB PO SCH ×4 (08:43→21:37)
[2020-01-20] MEDS: RIVAROXABAN 20 MG TAB PO SCH (08:43)
[2020-01-20] MEDS: DOCUSATE SODIUM 100 MG CAP PO SCH ×2 (08:43→21:41)
[2020-01-20] MEDS: DANTROLENE SODIUM 25 MG CAP PO SCH ×3 (08:43→21:41)
[2020-01-20] MEDS: METHENAMINE HIPPURATE 1 GM TAB PO SCH ×2 (08:43→21:42)
[2020-01-20] MEDS: DULOXETINE HCL 60 MG CAP PO SCH ×2 (08:44→14:40)
[2020-01-20] MEDS: OXYCODONE/APAP 7.5/325MG TAB PO PRN ×3 (08:49→23:44)
[2020-01-20] MEDS: SOD PHOSPHATE/SOD BIPHOSPHATE ENEMA 132 ML BTL PR SCH (21:35)
[2020-01-20] MEDS: MIRTAZAPINE TAB 15 MG TAB PO SCH (21:38)
[2020-01-20] MEDS: MAGNESIUM OXIDE 400 MG TAB PO SCH (21:40)
[2020-01-21] MEDS: HEPARIN 100 UNIT/ML 5ML FLUSH FLUSH PRN (07:47)
[2020-01-21] MEDS ORDERED: SODIUM CHLORIDE 0.9% 1000ML 1,000 ML IV ONE (07:57)
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
[2020-01-21 08:03] LABS: Hematocrit (blood only) 39.1 % (37-47); Hemoglobin 12.6 g/dL (12.0-16.0); Mean Corpuscular Hemoglobin 28.3 pg (25-34); Mean Corpuscular Hgb Conc 32.2 g/dL (32-36); Mean Corpuscular Volume 87.7 fL (80-100); Mean Platelet Volume 9.4 fL (7.4-10.4); Platelet Count 152 K/uL (130-400); RDW Coefficient of Variation 14.4 % (11.5-14.5); RDW Standard Deviation 46.3 fL (36.4-46.3); Red Blood Count 4.46 M/uL (4.2-5.4); White Blood Count 6.11 K/uL (4.8-10.8)
[2020-01-21] MEDS: OXYCODONE/APAP 7.5/325MG TAB PO PRN ×2 (08:15→20:05)
[2020-01-21] MEDS: DULOXETINE HCL 60 MG CAP PO SCH ×2 (08:16→15:12)
[2020-01-21] MEDS: DOCUSATE SODIUM 100 MG CAP PO SCH ×2 (08:16→20:07)
[2020-01-21] MEDS: BACLOFEN 10 MG TAB PO SCH ×4 (08:18→20:06)
[2020-01-21] MEDS: RIVAROXABAN 20 MG TAB PO SCH (08:18)
[2020-01-21] MEDS: DANTROLENE SODIUM 25 MG CAP PO SCH ×3 (08:18→20:08)
[2020-01-21] MEDS: METHENAMINE HIPPURATE 1 GM TAB PO SCH ×2 (08:19→20:07)
[2020-01-21] MEDS: GABAPENTIN 300 MG CAP PO SCH ×4 (08:19→20:06)
[2020-01-21] MEDS: GABAPENTIN 600 MG TAB PO SCH ×4 (08:19→20:06)
[2020-01-21] MEDS: BACLOFEN 20 MG TAB PO SCH ×4 (08:19→20:06)
[2020-01-21] MEDS: guaiFENesin 600 MG TABCR PO SCH ×2 (08:20→20:08)
[2020-01-21] MEDS: ASCORBIC ACID 500 MG TAB PO SCH ×2 (08:20→20:08)
[2020-01-21 08:27] LABS: BUN Creatinine Ratio 28.9 (10-20); Blood Urea Nitrogen 8 mg/dl (7-18); Calcium 9.1 mg/dl (8.5-10.1); Carbon Dioxide 28 mmol/L (21-32); Chloride 107 mmol/L (98-107); Creatinine Clr Calc Pharmacy 280.1 ml/min; Est GFR (African American) > 150.0; Est GFR (Non-African American) > 150.0; Glucose 86 mg/dl (70-99); Potassium 3.8 mmol/L (3.5-5.1); Sodium 139 mmol/L (136-145)
[2020-01-21] MEDS: MAGNESIUM OXIDE 400 MG TAB PO SCH (20:07)
[2020-01-21] MEDS: MIRTAZAPINE TAB 15 MG TAB PO SCH (20:08)
[2020-01-21] MEDS: SOD PHOSPHATE/SOD BIPHOSPHATE ENEMA 132 ML BTL PR SCH (20:09)
[2020-01-22] MEDS: ACETAMINOPHEN 325 MG TAB PO PRN (00:09)
[2020-01-22] MEDS: HEPARIN 100 UNIT/ML 5ML FLUSH FLUSH PRN (05:58)
[2020-01-22 06:29] LABS: Hematocrit (blood only) 38.7 % (37-47); Hemoglobin 12.2 g/dL (12.0-16.0); Mean Corpuscular Hemoglobin 28.2 pg (25-34); Mean Corpuscular Hgb Conc 31.5 g/dL (32-36); Mean Corpuscular Volume 89.6 fL (80-100); Mean Platelet Volume 9.9 fL (7.4-10.4); Platelet Count 151 K/uL (130-400); RDW Coefficient of Variation 14.3 % (11.5-14.5); RDW Standard Deviation 47.1 fL (36.4-46.3); Red Blood Count 4.32 M/uL (4.2-5.4); White Blood Count 5.83 K/uL (4.8-10.8)
[2020-01-22 07:10] LABS: BUN Creatinine Ratio 39.4 (10-20); Blood Urea Nitrogen 11 mg/dl (7-18); Calcium 8.8 mg/dl (8.5-10.1); Carbon Dioxide 27 mmol/L (21-32); Chloride 108 mmol/L (98-107); Creatinine Clr Calc Pharmacy 270.1 ml/min; Est GFR (African American) > 150.0; Est GFR (Non-African American) > 150.0; Glucose 78 mg/dl (70-99); Potassium 3.8 mmol/L (3.5-5.1); Sodium 141 mmol/L (136-145)
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
[2020-01-22] MEDS: DOCUSATE SODIUM 100 MG CAP PO SCH ×2 (08:02→19:58)
[2020-01-22] MEDS: OXYCODONE/APAP 7.5/325MG TAB PO PRN ×2 (08:02→14:09)
[2020-01-22] MEDS: DANTROLENE SODIUM 25 MG CAP PO SCH ×3 (08:03→19:58)
[2020-01-22] MEDS: DULOXETINE HCL 60 MG CAP PO SCH ×2 (08:03→14:51)
[2020-01-22] MEDS: BACLOFEN 20 MG TAB PO SCH ×4 (08:03→20:00)
[2020-01-22] MEDS: GABAPENTIN 600 MG TAB PO SCH ×4 (08:04→19:57)
[2020-01-22] MEDS: BACLOFEN 10 MG TAB PO SCH ×4 (08:04→19:56)
[2020-01-22] MEDS: GABAPENTIN 300 MG CAP PO SCH ×4 (08:04→20:00)
[2020-01-22] MEDS: METHENAMINE HIPPURATE 1 GM TAB PO SCH ×2 (08:04→19:59)
[2020-01-22] MEDS: RIVAROXABAN 20 MG TAB PO SCH (08:04)
[2020-01-22] MEDS: ASCORBIC ACID 500 MG TAB PO SCH ×2 (08:04→19:59)
[2020-01-22] MEDS: guaiFENesin 600 MG TABCR PO SCH ×2 (08:04→19:59)
--- NOTE | 2020-01-22 09:08 | Surgery Progress Note ---
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 Wound is improving. Plan is to keep patient until at least for next VAC change. Admission and Anticipated Discharge Date Admission Date: January 19, 2020 Supervising Physician Co-Signing Physician Notes I personally saw and examined this patient at bedside today. The wound seems to have significantly improved since last exam on of last week. There is less undermining, wound appears less deep, and there is healthy-appearing granulation I would recommend continuing the irrigating VAC, with reassessment on . Subjective Elenita is resting in bed- she is tolerating irrigating VAC. Reports that she does continue to have some mild pain, especially when head of bed is up. Physical Exam Physical Exam: Dr. Summers, Chio Dos Santos, Dr. Baeza present for examination. VAC removed this morning. Wound looks improved from last wound care visit. Wound measurements taken by Chio and wound tunnels approximately 3.5cm. Wound bed is pink. 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
[2020-01-22] MEDS: MIRTAZAPINE TAB 15 MG TAB PO SCH (19:57)
[2020-01-22] MEDS: SOD PHOSPHATE/SOD BIPHOSPHATE ENEMA 132 ML BTL PR SCH (19:58)
[2020-01-22] MEDS: MAGNESIUM OXIDE 400 MG TAB PO SCH (20:00)
[2020-01-22] MEDS: LORazepam 0.5 MG TAB PO PRN (21:01)
--- NOTE | 2020-01-22 21:32 | Wound Progress Note ---
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 Will apply irrigating wound vac for another cycle. Will continue to follow. Admission and Anticipated Discharge Date Admission Date: January 19, 2020 Subjective Patient seen at bedside with YOLI and Dr. Summers. No new complaints. Patient is tolerating irrigating wound vac. She is on low air loss mattress. Review of Systems Review of Systems: All systems reviewed & are unremarkable except as noted in HPI & below Physical Exam Physical Exam: vitals reviewed Constitutional: WD/WN, vitals as above Eyes: PERRL, conjunctivae normal, anicteric sclerae ENMT: external ear and nose normal, oropharynx normal Ears: no hearing impairment Skin: Wound measuring as recorded in nursing documentation. Wound bed is looks healthier with some granulation buds. There is decreased undermining. Periwound is intact without inflammation. There is moderate drainage and no foul odors. 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
[2020-01-23] MEDS: OXYCODONE/APAP 7.5/325MG TAB PO PRN ×3 (07:44→20:58)
[2020-01-23] MEDS: DULOXETINE HCL 60 MG CAP PO SCH ×2 (07:47→14:48)
[2020-01-23] MEDS: GABAPENTIN 600 MG TAB PO SCH ×4 (07:48→20:55)
[2020-01-23] MEDS: RIVAROXABAN 20 MG TAB PO SCH (07:48)
[2020-01-23] MEDS: BACLOFEN 20 MG TAB PO SCH ×4 (07:48→20:56)
[2020-01-23] MEDS: BACLOFEN 10 MG TAB PO SCH ×4 (07:48→20:56)
[2020-01-23] MEDS: GABAPENTIN 300 MG CAP PO SCH ×4 (07:48→20:54)
[2020-01-23] MEDS: ASCORBIC ACID 500 MG TAB PO SCH ×2 (07:48→20:52)
[2020-01-23] MEDS: METHENAMINE HIPPURATE 1 GM TAB PO SCH ×2 (07:48→20:53)
[2020-01-23] MEDS: DOCUSATE SODIUM 100 MG CAP PO SCH ×2 (07:48→20:57)
[2020-01-23] MEDS: DANTROLENE SODIUM 25 MG CAP PO SCH ×3 (07:48→20:56)
[2020-01-23] MEDS: guaiFENesin 600 MG TABCR PO SCH ×2 (07:48→20:55)
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
[2020-01-23] MEDS: MIRTAZAPINE TAB 15 MG TAB PO SCH (20:53)
[2020-01-23] MEDS: MAGNESIUM OXIDE 400 MG TAB PO SCH (20:55)
[2020-01-23] MEDS: SOD PHOSPHATE/SOD BIPHOSPHATE ENEMA 132 ML BTL PR SCH (20:56)
[2020-01-24] MEDS: OXYCODONE/APAP 7.5/325MG TAB PO PRN ×3 (08:22→20:32)
[2020-01-24] MEDS: METHENAMINE HIPPURATE 1 GM TAB PO SCH ×2 (08:23→20:34)
[2020-01-24] MEDS: DULOXETINE HCL 60 MG CAP PO SCH ×2 (08:23→14:34)
[2020-01-24] MEDS: DOCUSATE SODIUM 100 MG CAP PO SCH ×2 (08:23→20:33)
[2020-01-24] MEDS: DANTROLENE SODIUM 25 MG CAP PO SCH ×3 (08:23→20:33)
[2020-01-24] MEDS: guaiFENesin 600 MG TABCR PO SCH ×2 (08:23→20:33)
[2020-01-24] MEDS: BACLOFEN 10 MG TAB PO SCH ×4 (08:23→20:35)
[2020-01-24] MEDS: ASCORBIC ACID 500 MG TAB PO SCH ×2 (08:23→20:33)
[2020-01-24] MEDS: GABAPENTIN 300 MG CAP PO SCH ×4 (08:23→20:34)
[2020-01-24] MEDS: BACLOFEN 20 MG TAB PO SCH ×4 (08:23→20:33)
[2020-01-24] MEDS: GABAPENTIN 600 MG TAB PO SCH ×4 (08:23→20:34)
[2020-01-24] MEDS: RIVAROXABAN 20 MG TAB PO SCH (08:23)
[2020-01-24 09:48] LABS: Hematocrit (blood only) 38.5 % (37-47); Hemoglobin 12.3 g/dL (12.0-16.0); Mean Corpuscular Hemoglobin 28.7 pg (25-34); Mean Corpuscular Hgb Conc 31.9 g/dL (32-36); Mean Corpuscular Volume 89.7 fL (80-100); Platelet Count 143 K/uL (130-400); RDW Coefficient of Variation 14.7 % (11.5-14.5); RDW Standard Deviation 48.2 fL (36.4-46.3); Red Blood Count 4.29 M/uL (4.2-5.4)
[2020-01-24 10:10] LABS: BUN Creatinine Ratio 16.6 (10-20); Blood Urea Nitrogen 8 mg/dl (7-18); Calcium 9.1 mg/dl (8.5-10.1); Carbon Dioxide 24 mmol/L (21-32); Chloride 107 mmol/L (98-107); Creatinine Clr Calc Pharmacy 164.4 ml/min; Est GFR (African American) > 150.0; Est GFR (Non-African American) 136.3; Glucose 149 mg/dl (70-99); Phosphorus 3.1 mg/dl (2.5-4.9); Potassium 4.1 mmol/L (3.5-5.1); Sodium 139 mmol/L (136-145)
[2020-01-24] MEDS: MELATONIN 3 MG TAB PO PRN (20:32)
[2020-01-24] MEDS: MAGNESIUM OXIDE 400 MG TAB PO SCH (20:34)
[2020-01-24] MEDS: MIRTAZAPINE TAB 15 MG TAB PO SCH (20:34)
[2020-01-24] MEDS: SOD PHOSPHATE/SOD BIPHOSPHATE ENEMA 132 ML BTL PR SCH (20:35)
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
[2020-01-25] MEDS: OXYCODONE/APAP 7.5/325MG TAB PO PRN ×3 (08:02→21:07)
[2020-01-25] MEDS: ASCORBIC ACID 500 MG TAB PO SCH ×2 (09:11→21:08)
[2020-01-25] MEDS: BACLOFEN 10 MG TAB PO SCH ×4 (09:11→21:09)
[2020-01-25] MEDS: DULOXETINE HCL 60 MG CAP PO SCH ×2 (09:11→14:04)
[2020-01-25] MEDS: RIVAROXABAN 20 MG TAB PO SCH (09:11)
[2020-01-25] MEDS: guaiFENesin 600 MG TABCR PO SCH ×2 (09:12→21:08)
[2020-01-25] MEDS: GABAPENTIN 300 MG CAP PO SCH ×4 (09:12→21:09)
[2020-01-25] MEDS: GABAPENTIN 600 MG TAB PO SCH ×4 (09:12→21:08)
[2020-01-25] MEDS: BACLOFEN 20 MG TAB PO SCH ×4 (09:12→21:09)
[2020-01-25] MEDS: METHENAMINE HIPPURATE 1 GM TAB PO SCH ×2 (09:12→21:08)
[2020-01-25] MEDS: DANTROLENE SODIUM 25 MG CAP PO SCH ×3 (09:13→21:08)
[2020-01-25] MEDS: DOCUSATE SODIUM 100 MG CAP PO SCH ×2 (09:13→21:09)
--- NOTE | 2020-01-25 09:14 | Surgery Progress Note ---
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 Summers and Chio Dos Santos. She was seen earlier by Dr. Baeza. Wound vac removed and tunneling is measuring slightly more today at approximately 4cm, but does feel more narrow. Ideally, would recommend that patient remain in hospital with irrigating wound vac due to improvement of wound. Call placed to case management, Fadia Bradley, who is waiting to hear back from patient's insurance company regarding patient staying in-house with irrigating wound vac. Admission and Anticipated Discharge Date Admission Date: January 19, 2020 Supervising Physician Co-Signing Physician Notes Wound continues to improve substantially. I would recommend, and patient is agreeable to, continued inpatient irrigating wound vac placement in an effort to avoid surgical intervention and decrease the length of time an outpatient vac would be required. We will verify with her insurance. Subjective Elenita states that she is having increased discomfort from wound. She is tolerating wound vac and states that vac was removed prior to us coming in room and aquacel and optifoam dressing was placed. Physical Exam Physical Exam: Dr. Summers present for examination. Chio Dos Santos present for examination. VAC removed this morning. Wound is overall improving. Wound measurements taken by Chio and wound tunnels approximately 4cm, which is slightly increased from Wednesday's measurements, but it does feel more narrow. Wound bed is pink. No drainage appreciated on physical exam. 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
--- NOTE | 2020-01-25 14:37 | Wound Progress Note ---
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 Undermining and tunneling appear smaller. Patient would benefit from another 4 day cycle of irrigating wound vac. Call placed to case management. If patient is discharged, would place lou in tunnel, silver foam and standard wound vac. Admission and Anticipated Discharge Date Admission Date: January 19, 2020 Subjective Patient seen at bedside with WOCN. Patient is tolerating irrigating wound vac. No new complaints. Review of Systems Review of Systems: All systems reviewed & are unremarkable except as noted in HPI & below Physical Exam Physical Exam: vitals reviewed. Constitutional: WD/WN, vitals as above Eyes: PERRL, conjunctivae normal, anicteric sclerae ENMT: external ear and nose normal, oropharynx normal Ears: no hearing impairment Skin: Wound measuring as recorded in nursing documentation. Wound is covered with granulation buds. Undermining improving. Periwound intact without inflammation. There is moderate drainage and no foul odors. 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
[2020-01-25] MEDS: MELATONIN 3 MG TAB PO PRN (21:08)
[2020-01-25] MEDS: MAGNESIUM OXIDE 400 MG TAB PO SCH (21:09)
[2020-01-25] MEDS: SOD PHOSPHATE/SOD BIPHOSPHATE ENEMA 132 ML BTL PR SCH (21:09)
[2020-01-25] MEDS: MIRTAZAPINE TAB 15 MG TAB PO SCH (21:09)
[2020-01-26] MEDS: DANTROLENE SODIUM 25 MG CAP PO SCH ×3 (08:06→20:37)
[2020-01-26] MEDS: DOCUSATE SODIUM 100 MG CAP PO SCH ×2 (08:06→20:38)
[2020-01-26] MEDS: DULOXETINE HCL 60 MG CAP PO SCH ×2 (08:07→14:19)
[2020-01-26] MEDS: ASCORBIC ACID 500 MG TAB PO SCH ×2 (08:07→20:38)
[2020-01-26] MEDS: METHENAMINE HIPPURATE 1 GM TAB PO SCH ×2 (08:07→20:38)
[2020-01-26] MEDS: GABAPENTIN 600 MG TAB PO SCH ×4 (08:08→20:39)
[2020-01-26] MEDS: guaiFENesin 600 MG TABCR PO SCH ×2 (08:08→20:37)
[2020-01-26] MEDS: GABAPENTIN 300 MG CAP PO SCH ×4 (08:08→20:39)
[2020-01-26] MEDS: RIVAROXABAN 20 MG TAB PO SCH (08:08)
[2020-01-26] MEDS: BACLOFEN 20 MG TAB PO SCH ×4 (08:09→20:41)
[2020-01-26] MEDS: BACLOFEN 10 MG TAB PO SCH ×4 (08:09→20:40)
[2020-01-26] MEDS: OXYCODONE/APAP 7.5/325MG TAB PO PRN ×3 (09:18→22:20)
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
[2020-01-26] MEDS: MAGNESIUM OXIDE 400 MG TAB PO SCH (20:37)
[2020-01-26] MEDS: MIRTAZAPINE TAB 15 MG TAB PO SCH (20:37)
[2020-01-26] MEDS: SOD PHOSPHATE/SOD BIPHOSPHATE ENEMA 132 ML BTL PR SCH (20:41)
[2020-01-27] MEDS: ACETAMINOPHEN 325 MG TAB PO PRN (02:36)
[2020-01-27] MEDS: OXYCODONE/APAP 7.5/325MG TAB PO PRN ×3 (08:19→22:14)
[2020-01-27] MEDS: DULOXETINE HCL 60 MG CAP PO SCH ×2 (08:20→14:47)
[2020-01-27] MEDS: DANTROLENE SODIUM 25 MG CAP PO SCH ×3 (08:20→20:59)
[2020-01-27] MEDS: DOCUSATE SODIUM 100 MG CAP PO SCH ×2 (08:20→21:02)
[2020-01-27] MEDS: guaiFENesin 600 MG TABCR PO SCH ×2 (08:22→21:01)
[2020-01-27] MEDS: ASCORBIC ACID 500 MG TAB PO SCH ×2 (08:22→21:00)
[2020-01-27] MEDS: GABAPENTIN 300 MG CAP PO SCH ×4 (08:22→20:59)
[2020-01-27] MEDS: METHENAMINE HIPPURATE 1 GM TAB PO SCH ×2 (08:22→21:00)
[2020-01-27] MEDS: GABAPENTIN 600 MG TAB PO SCH ×4 (08:22→20:59)
[2020-01-27] MEDS: RIVAROXABAN 20 MG TAB PO SCH (08:23)
[2020-01-27] MEDS: BACLOFEN 20 MG TAB PO SCH ×4 (09:10→21:02)
[2020-01-27] MEDS: BACLOFEN 10 MG TAB PO SCH ×4 (09:10→21:02)
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
[2020-01-27] MEDS: MIRTAZAPINE TAB 15 MG TAB PO SCH (21:01)
[2020-01-27] MEDS: MAGNESIUM OXIDE 400 MG TAB PO SCH (21:02)
[2020-01-27] MEDS: SOD PHOSPHATE/SOD BIPHOSPHATE ENEMA 132 ML BTL PR SCH (21:04)
[2020-01-28] MEDS: OXYCODONE/APAP 7.5/325MG TAB PO PRN ×3 (07:34→21:26)
[2020-01-28] MEDS: DOCUSATE SODIUM 100 MG CAP PO SCH ×2 (07:38→21:10)
[2020-01-28] MEDS: DULOXETINE HCL 60 MG CAP PO SCH ×2 (07:38→15:47)
[2020-01-28] MEDS: DANTROLENE SODIUM 25 MG CAP PO SCH ×3 (07:38→21:10)
[2020-01-28] MEDS: guaiFENesin 600 MG TABCR PO SCH ×2 (07:39→21:10)
[2020-01-28] MEDS: BACLOFEN 20 MG TAB PO SCH ×4 (07:39→21:10)
[2020-01-28] MEDS: ASCORBIC ACID 500 MG TAB PO SCH ×2 (07:39→21:10)
[2020-01-28] MEDS: BACLOFEN 10 MG TAB PO SCH ×4 (07:39→21:10)
[2020-01-28] MEDS: GABAPENTIN 600 MG TAB PO SCH ×4 (07:39→21:09)
[2020-01-28] MEDS: METHENAMINE HIPPURATE 1 GM TAB PO SCH ×2 (07:39→21:09)
[2020-01-28] MEDS: GABAPENTIN 300 MG CAP PO SCH ×4 (07:39→21:09)
[2020-01-28] MEDS: RIVAROXABAN 20 MG TAB PO SCH (07:40)
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
[2020-01-28] MEDS: LORazepam 0.5 MG TAB PO PRN (19:11)
[2020-01-28] MEDS: MIRTAZAPINE TAB 15 MG TAB PO SCH (21:09)
[2020-01-28] MEDS: MAGNESIUM OXIDE 400 MG TAB PO SCH (21:10)
[2020-01-28] MEDS: SOD PHOSPHATE/SOD BIPHOSPHATE ENEMA 132 ML BTL PR SCH (21:10)
[2020-01-29] MEDS: OXYCODONE/APAP 7.5/325MG TAB PO PRN (08:34)
[2020-01-29] MEDS: DOCUSATE SODIUM 100 MG CAP PO SCH (08:37)
[2020-01-29] MEDS: DULOXETINE HCL 60 MG CAP PO SCH (08:37)
[2020-01-29] MEDS: BACLOFEN 20 MG TAB PO SCH ×2 (08:37→13:13)
[2020-01-29] MEDS: DANTROLENE SODIUM 25 MG CAP PO SCH ×2 (08:37→13:58)
[2020-01-29] MEDS: METHENAMINE HIPPURATE 1 GM TAB PO SCH (08:38)
[2020-01-29] MEDS: guaiFENesin 600 MG TABCR PO SCH (08:38)
[2020-01-29] MEDS: BACLOFEN 10 MG TAB PO SCH ×2 (08:38→13:13)
[2020-01-29] MEDS: ASCORBIC ACID 500 MG TAB PO SCH (08:38)
[2020-01-29] MEDS: GABAPENTIN 600 MG TAB PO SCH ×2 (08:38→13:13)
[2020-01-29] MEDS: GABAPENTIN 300 MG CAP PO SCH ×2 (08:38→13:13)
[2020-01-29] MEDS: RIVAROXABAN 20 MG TAB PO SCH (08:38)
--- NOTE | 2020-01-29 09:21 | Wound Progress Note ---
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 No debridement was required at this time. Will dress wound with lou, silver foam and wound vac at 125mmHg. This will be changed Wednesday, Wednesday and Wednesday. Will see patient in office after discharge. Admission and Anticipated Discharge Date Admission Date: January 19, 2020 Subjective Patient seen at bedside with YOLI. She has completed 3 cycles of irrigating wound vac. No new complaints. Review of Systems Review of Systems: All systems reviewed & are unremarkable except as noted in HPI & below Physical Exam Physical Exam: Temp Pulse Resp BP Pulse Ox 36.6 C 64 16 104/72 97 01/29/20 07:16 01/29/20 07:16 01/29/20 07:16 01/29/20 07:16 01/29/20 07:16 Constitutional: WD/WN, vitals as above Eyes: PERRL, conjunctivae normal, anicteric sclerae Skin: Wound measuring as recorded in nursing documentation. Tunneling has improved from 4cm to 3.4cm which is a 15% improvement. Wound bed is healthy with granulation buds. There is still undermining. 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
--- NOTE | 2020-01-29 10:17 | Surgery Progress Note ---
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 I personally spoke with Chio Dos Santos regarding patient's care. She will dress wound with lou, silver foam and wound vac at 125mmHg. This will be changed Wednesday, Wednesday and Wednesday. She is ok for discharge to home today with above plan. She will follow-up with Dr. Summers at wound care center on at 9AM. Admission and Anticipated Discharge Date Admission Date: January 19, 2020 Subjective Patient seen at bedside. Irrigating vac removed this morning and Aquacel with optifoam placed. no new concerns or complaints. Physical Exam Physical Exam: VAC removed this morning. Wound continues to improve. Wound measurements taken by Chio and wound tunnels approximately 3.4cm, which is decreased from last measurements- it continues to narrow. Wound bed is pink. No drainage appreciated on physical exam. Results & Data (

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
== END 2020-01-29 14:11 | disposition home health service (06) | DRG 593 ==
LOC: SUATTDRO 12:09 → 2N 13:02

== ENCOUNTER 2020-08-24 11:09 | Inpatient (IN) ==
[2020-08-24] MEDS ORDERED: ONDANSETRON INJ 2 MG/ML 2 ML VIAL IV STA ×2 (12:37→15:55)
[2020-08-24] MEDS ORDERED: MoRPHine SULFATE 4 MG/ML 1 ML CARP\\VIAL IV STA (12:37)
[2020-08-24] MEDS ORDERED: OPTIRAY 320 100ml IV ONE (13:04)
--- NOTE | 2020-08-24 13:15 | Emergency Department Note ---
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 Said the catheter in place for almost a month with his chronic. 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 Evidently the catheter fell out with the balloon still inflated this morning. Patient now relates some abdominal discomfort as well as some discomfort of the genital region with some swelling in the genital region. Over the past several weeks she has been having some low blood pressures. Currently on doxycycline for her sacral wound which has been improving follows with the wound clinic. No longer with wound VAC. Denies systemic chills or fevers. Denies chest pain or shortness of breath. Reports a little bit of nausea. States her mother helping her today noticed significant swelling the genital region which developed at some point over the past 36 hours. Previously followed with urology and received Botox injections but is now due for repeat and has not followed up with a new urologist in the area yet. REVIEW OF SYSTEMS: A total of 10 review of systems was obtained and negative except as stated above in the HPI. PAST MEDICAL HISTORY: As noted above MEDICATIONS: Reviewed home medication list SOCIAL HISTORY: Non-smoker, lives at home PHYSICAL EXAM: GENERAL: alert and oriented in no acute distress on stretcher Head: normocephalic and atraumatic EYES: No injection, discharge or icterus. NECK: Trachea midline with well-healed midline tracheostomy scar. LUNGS: Airway patent. No retractions. HEART: Regular rate and rhythm. ABDOMEN: Soft with some slight lower abdominal tenderness but no guarding or rebound. No gross masses appreciated. : With RN brownell operator, swelling of the upper right labial fold; this area is moderately swollen without crepitus or significant fluctuance mass appreciated. No significant swelling of the clitoris or urethra noted. No bladder prolapse noted. Bandaged left buttocks pressure wound noted. SKIN: Acyanotic, warm, dry, without rashes EXTREMITIES: Without swelling. There is some bilateral lower extremity muscle wasting noted. NEUROLOGICAL: No aphasia. No facial droop or slurred speech. EK bpm sinus bradycardia. No PVC or PAC. No acute ST segment elevation or depression noted with a rightward axis. QTC 414. CONTINUOUS CARDIAC MONITORING: was ordered and showed a heart rate of 70s-50s bpm in normal sinus rhythm to sinus bradycardia Patient's laboratory studies and imaging reviewed. Differential includes Infection, dehydration, metabolic abnormality, hypo/hyperglycemia, electrolyte disturbance, anemia, hypoxia, cardiac sources, intracerebral event, toxicologic, neurologic, as well as other pathologies. IMPRESSION/MEDICAL DECISION MAKING: Patient presents with a displaced Bonilla catheter as well as some swelling in the genital region and some abdominal discomfort with nausea. No fevers reported. Reports a history of some transient low blood pressure and repeat blood pressure here with appropriate sized cuff appears improved. Question if cuff size plays a role initial low triage vital sign. Patient denies fever or chills. Stable leukopenia and no signs of anemia. Renal function and electrolytes without significant concerning abnormality. Urinalysis questionable for infection. No signs of liver dysfunction. CT abdomen pelvis questions chronic wound to maybe some chronic osteo of the pelvis which the patient and mother were made aware of. They report they have been following a wound clinic and they report this is actually been improving. Has been on doxycycline for this over the past 4 days. Urine somewhat a concern but may be somewhat colonized. Unsure if this was causing her abdominal discomfort. Some swelling of the labia and genital region was noted on exam and also noted on the CT of the abdomen pelvis. No significant traumatic or other irritation to cause these findings and do not see a clear abscess. No crepitus and doubt necrotizing fasciitis. Question if this is an overlying cellulitis in the region however. Patient is improvement of her pain with the morphine here. I discussed with patient given her allergies and comorbidities for possible trial of antibiotic on outpatient treatment versus further observation and treatment and IV antibiotics. In discussion she wished for further observation here and will be started on aztreonam and daptomycin based on prior antibiotic allergies and prior microbiology for broad coverage. Do believe there is likely some infectious component causing some cellulitis in the genital region. Bonilla catheter was replaced here. Covid testing was sent and negative and the hospitalist team was contacted. Labor given some Phenergan to help with nausea. DIAGNOSIS: Displaced Bonilla catheter, labial cellulitis, nausea, abdominal pain DISPOSITION: Hospitalist will evaluate Patient was agreeable with this plan Past Med/Surg History Medical History (Updated 08/24/20 @ 16:36 by Minor Carter M.D.) Anxiety Autonomic dysreflexia Depression Environmental allergies History of DVT (deep vein thrombosis) "UPPER EXTREMITY"- ON XARELTO (NO FURTHER DETAILS) History of seizure 2013 - ? D/T MEDS Hx of pneumothorax hx with chest tube. Treated at [facility] Indwelling Bonilla catheter present CHANGED EVERY 2 WEEKS Neurogenic bladder Port-A-Cath in place 06/15/18= A-PORT REPOSITION= MAC SEDATION AT [facility]. 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 07/2019. Status post debridement LEFT ISCHIAL ULCER DEBRIDEMENT/PLACEMENT OF WOUND VAC= 03/14/18= LMA #4 Status post debridement (~07/2018) left ischial ulcer debridement with flap 07/2018: MAC#3, ETT#7.0, Grade 2 View Family History Father Diabetes Brother Depression Other No family history of adverse response to anesthesia Social History Smoking Status: Never smoker Cigarettes Per Day: HX 1/2 PPD PER RECORDS; Second Hand Exposure: No; Hx Alcohol Use: Yes Alcohol type: beer, wine and hard liquor Hx Substance Use: No Preferred Language: Romansh Communication Ability: Effective Visual Impairment: Limited Hearing Ability: Normal Marketing Research Intern Required: No Beliefs That Will Affect Care: None marital status: Single Current Living Situation: Family Current Living Situation Comment: Lives with mom, dad and brother current occupational status: disabled How many Children do You have: 0 Feels Safe at Home: Yes Childhood Exposure to Second-Hand Smoke: No Assistive Devices: Glasses and Wheelchair Allergies Allergies Allergy/AdvReac Type Severity Reaction Status Date / Time cefepime Allergy Severe ANAPHYLAXIS Verified 08/24/20 15:05 imipenem Allergy Severe SEIZURE Verified 08/24/20 15:05 fentanyl Allergy Intermediate ITCHY AND Verified 08/24/20 15:05 RASH Penicillins Allergy Intermediate RASH PER Verified 08/24/20 15:05 MOTHER vancomycin Allergy Intermediate RASH Verified 08/24/20 15:05 levofloxacin Allergy Mild rash Verified 08/24/20 15:05 Sulfa (Sulfonamide Allergy Unknown Rash Verified 08/24/20 15:05 Antibiotics) Home Meds Home Medications Medication Instructions Recorded Confirmed Xarelto 20 mg PO QAM 03/07/18 08/24/20 ascorbic acid (vitamin C) 1 g PO Q12 03/07/18 08/24/20 buspirone 10 mg PO BID 03/07/18 08/24/20 dantrolene 100 mg PO TID 03/07/18 08/24/20 docusate sodium 100 mg PO BID 03/07/18 08/24/20 fluticasone propionate 2 spray INTRANASAL QAM PRN 03/07/18 08/24/20 lorazepam 0.5 mg PO Q8 PRN 03/07/18 08/24/20 methenamine hippurate [Hiprex] 1 g PO BID 03/07/18 08/24/20 mirtazapine 7.5 mg PO HS 03/07/18 08/24/20 zolpidem 5 mg PO HS PRN 03/07/18 08/24/20 nystatin 1 applic TOPICAL BID PRN 03/18/18 08/24/20 guaifenesin [Mucinex] 600 mg PO Q12H 04/06/18 08/24/20 baclofen 20 mg PO QID 12/28/18 08/24/20 duloxetine 60 mg capsule,delayed 60 mg PO BID cap 02/02/19 08/24/20 release gabapentin 600 mg tablet 600 mg PO QID tab 02/02/19 08/24/20 oxycodone-acetaminophen 7.5 mg-325 1 tab PO Q6H PRN 06/15/19 08/24/20 mg tablet melatonin 3 mg PO HS PRN 08/13/19 08/24/20 baclofen 10 mg PO QID 09/25/19 08/24/20 docusate sodium [Enemeez] 283 mg CO HS 09/25/19 08/24/20 gabapentin 300 mg PO QID 09/25/19 08/24/20 cyclobenzaprine 5 mg tablet 5 mg PO TID PRN 11/16/19 08/24/20 citric gy-[id number]-rqg carb 30 ml IRRIGATION [id number] 08/24/20 08/24/20 [Renacidin] lamotrigine 50 mg PO HS 08/24/20 08/24/20 oxybutynin chloride 5 mg PO Q6H PRN 08/24/20 08/24/20 sodium chloride 2 g PO TID 08/24/20 08/24/20 Previous Rx's Medication Instructions Recorded doxycycline hyclate 100 mg tablet 100 mg PO bid #28 tab 08/19/20 Results & Data (ED) Vital Signs Vital Signs - 24 hr 08/24/20 11:43 08/24/20 12:28 08/24/20 12:34 Temperature 36.3 C L Temperature Source Temporal Artery Scan Pulse Rate 82 59 L 57 L Pulse Rate [Apical] Pulse Rate [Right Finger] Pulse Rate from SpO2 Sensor Pulse Rhythm [Apical] Pulse Strength [Apical] Respiratory Rate 18 20 19 Respiratory Effort / Characteristics Respiratory Depth Respiratory Pattern Blood Pressure 57/39 L 109/68 Blood Pressure [Left Arm] Blood Pressure [Right Arm] Blood Pressure Mean 45 81 Blood Pressure Mean [Left Arm] Blood Pressure Mean [Right Arm] Blood Pressure Position [Left Arm] Blood Pressure Position [Right Arm] Pulse Oximetry 97 Oxygen Delivery Method Sepsis Recent Fever Within 48 Hours No Sepsis New/Unexplained Change in Mental Status No Sepsis Action Taken by Nursing No Action Required 08/24/20 13:00 08/24/20 13:10 08/24/20 13:21 Temperature Temperature Source Pulse Rate 61 Pulse Rate [Apical] Pulse Rate [Right Finger] 85 Pulse Rate from SpO2 Sensor Pulse Rhythm [Apical] Pulse Strength [Apical] Respiratory Rate 20 16 Respiratory Effort / Characteristics Non-Labored Respiratory Depth Normal Respiratory Pattern Regular Blood Pressure Blood Pressure [Left Arm] 109/68 Blood Pressure [Right Arm] Blood Pressure Mean Blood Pressure Mean [Left Arm] 81 Blood Pressure Mean [Right Arm] Blood Pressure Position [Left Arm] Lying Blood Pressure Position [Right Arm] Pulse Oximetry 95 98 Oxygen Delivery Method Room Air Room Air Sepsis Recent Fever Within 48 Hours Sepsis New/Unexplained Change in Mental Status Sepsis Action Taken by Nursing 08/24/20 14:48 08/24/20 14:49 08/24/20 15:50 Temperature Temperature Source Pulse Rate 59 L Pulse Rate [Apical] 71 Pulse Rate [Right Finger] Pulse Rate from SpO2 Sensor 64 59 L Pulse Rhythm [Apical] Regular Pulse Strength [Apical] Normal Respiratory Rate 20 13 Respiratory Effort / Characteristics Non-Labored Spontaneous Respiratory Depth Normal Respiratory Pattern Regular Blood Pressure 122/79 100/59 L Blood Pressure [Left Arm] Blood Pressure [Right Arm] 122/79 Blood Pressure Mean 93 72 Blood Pressure Mean [Left Arm] Blood Pressure Mean [Right Arm] 93 Blood Pressure Position [Left Arm] Blood Pressure Position [Right Arm] Lying Pulse Oximetry 95 96 Oxygen Delivery Method Room Air Sepsis Recent Fever Within 48 Hours Sepsis New/Unexplained Change in Mental Status Sepsis Action Taken by Nursing 08/24/20 15:51 08/24/20 16:00 08/24/20 16:30 Temperature Temperature Source Pulse Rate 57 L 54 L 57 L Pulse Rate [Apical] Pulse Rate [Right Finger] Pulse Rate from SpO2 Sensor 54 L Pulse Rhythm [Apical] Pulse Strength [Apical] Respiratory Rate 14 14 16 Respiratory Effort / Characteristics Respiratory Depth Respiratory Pattern Blood Pressure Blood Pressure [Left Arm] Blood Pressure [Right Arm] Blood Pressure Mean Blood Pressure Mean [Left Arm] Blood Pressure Mean [Right Arm] Blood Pressure Position [Left Arm] Blood Pressure Position [Right Arm] Pulse Oximetry 97 Oxygen Delivery Method Sepsis Recent Fever Within 48 Hours Sepsis New/Unexplained Change in Mental Status Sepsis Action Taken by Nursing 08/24/20 16:34 08/24/20 17:00 08/24/20 17:54 Temperature Temperature Source Pulse Rate 56 L 55 L 58 L Pulse Rate [Apical] Pulse Rate [Right Finger] Pulse Rate from SpO2 Sensor Pulse Rhythm [Apical] Pulse Strength [Apical] Respiratory Rate 12 12 20 Respiratory Effort / Characteristics Respiratory Depth Respiratory Pattern Blood Pressure 100/59 L 97/56 L Blood Pressure [Left Arm] Blood Pressure [Right Arm] Blood Pressure Mean 72 69 Blood Pressure Mean [Left Arm] Blood Pressure Mean [Right Arm] Blood Pressure Position [Left Arm] Blood Pressure Position [Right Arm] Pulse Oximetry 100 97 Oxygen Delivery Method Room Air Sepsis Recent Fever Within 48 Hours Sepsis New/Unexplained Change in Mental Status Sepsis Action Taken by Nursing Laboratory Data Result diagrams: 08/24/20 13:27 08/24/20 13:27 Lab Results 08/24/20 08/24/20 08/24/20 Range/Units 13:14 13:27 13:27 WBC 4.61 L (4.8-10.8) K/uL RBC 4.09 L (4.2-5.4) M/uL Hgb 12.3 (12.0-16.0) g/dL Hct 37.1 (37-47) % MCV 90.7 (80-100) fL MCH 30.1 (25-34) pg MCHC 33.2 (32-36) g/dL RDW Std Deviation 45.7 (36.4-46.3) fL RDW Coeff of Andres 13.8 (11.5-14.5) % Plt Count 104 L (130-400) K/uL MPV 10.3 (7.4-10.4) fL Immature Gran % (Auto) 0.4 % Neut % (Auto) 47.1 % Lymph % (Auto) 40.8 % [place] % (Auto) 9.3 % Eos % (Auto) 2.2 % Baso % (Auto) 0.2 % Neut # (Auto) 2.17 (1.4-6.5) K/uL Lymph # (Auto) 1.88 (1.2-3.4) K/uL [place] # (Auto) 0.43 (0.11-0.59) K/uL Eos # (Auto) 0.10 (0-0.5) K/uL Baso # (Auto) 0.01 (0-0.2) K/uL Immature Gran # (Auto) 0.02 (0.00-0.02) K/uL PT 12.5 H (9.0-12.0) Seconds INR 1.3 H (0.9-1.1) Sodium (136-145) mmol/L Potassium (3.5-5.1) mmol/L Chloride (98-107) mmol/L Carbon Dioxide (21-32) mmol/L Anion Gap (3-11) BUN (7-18) mg/dl Creatinine (0.6-1.2) mg/dl Est Cr Clr Drug Dosing ml/min Est GFR ( Amer) Est GFR (Non-Af Amer) BUN/Creatinine Ratio (10-20) Glucose (70-99) mg/dl Lactate (0.4-2.0) mmol/L Calcium (8.5-10.1) mg/dl Magnesium (1.8-2.4) mg/dl Total Bilirubin (0.2-1) mg/dl AST (15-37) U/L ALT (12-78) U/L Alkaline Phosphatase (45-117) U/L Total Creatine Kinase (26-192) U/L Troponin I (0-0.045) ng/ml Total Protein (6.4-8.2) gm/dl Albumin (3.4-5.0) gm/dl Globulin (2.5-4.0) gm/dl Albumin/Globulin Ratio (0.9-2) TSH (0.300-4.500) uIu/ml Urine Color Dark Yellow Urine Appearance Clear (Clear) Urine pH 6.5 (4.5-7.5) Ur Specific [place] 1.020 (1.000-1.030) Urine Protein Negative (Negative) Urine Glucose (UA) Negative (Negative) Urine Ketones Negative (Negative) Urine Blood Negative (Negative) Urine Nitrite Positive A (Negative) Urine Bilirubin Negative (Negative) Urine Urobilinogen Negative (Negative) Ur Leukocyte Esterase 2+ H (Negative) Urine WBC (Auto) >30 H (0-5) /hpf Urine RBC (Auto) 0-4 (0-4) /hpf U Hyaline Cast (Auto) 1-5 (0-5) /lpf U Epithel Cells (Auto) 10-20 H (0-5) /lpf Urine Bacteria (Auto) Negative (Negative) COVID-19 Eval Order SARS-CoV-2 (PCR) (Negative) Influenza Type A (PCR) (Neg) Influenza Type B (PCR) (Neg) RSV (RT-PCR) (Neg) 08/24/20 08/24/20 08/24/20 Range/Units 13:27 13:27 15:53 WBC (4.8-10.8) K/uL RBC (4.2-5.4) M/uL Hgb (12.0-16.0) g/dL Hct (37-47) % MCV (80-100) fL MCH (25-34) pg MCHC (32-36) g/dL RDW Std Deviation (36.4-46.3) fL RDW Coeff of Andres (11.5-14.5) % Plt Count (130-400) K/uL MPV (7.4-10.4) fL Immature Gran % (Auto) % Neut % (Auto) % Lymph % (Auto) % [place] % (Auto) % Eos % (Auto) % Baso % (Auto) % Neut # (Auto) (1.4-6.5) K/uL Lymph # (Auto) (1.2-3.4) K/uL [place] # (Auto) (0.11-0.59) K/uL Eos # (Auto) (0-0.5) K/uL Baso # (Auto) (0-0.2) K/uL Immature Gran # (Auto) (0.00-0.02) K/uL PT (9.0-12.0) Seconds INR (0.9-1.1) Sodium 142 (136-145) mmol/L Potassium 3.7 (3.5-5.1) mmol/L Chloride 111 H (98-107) mmol/L Carbon Dioxide 26 (21-32) mmol/L Anion Gap 5.0 (3-11) BUN 9 (7-18) mg/dl Creatinine 0.31 L (0.6-1.2) mg/dl Est Cr Clr Drug Dosing 247.0 ml/min Est GFR ( Amer) > 150.0 Est GFR (Non-Af Amer) > 150.0 BUN/Creatinine Ratio 30.3 H (10-20) Glucose 106 H (70-99) mg/dl Lactate 1.0 (0.4-2.0) mmol/L Calcium 8.6 (8.5-10.1) mg/dl Magnesium 1.8 (1.8-2.4) mg/dl Total Bilirubin 0.4 (0.2-1) mg/dl AST 12 L (15-37) U/L ALT 23 (12-78) U/L Alkaline Phosphatase 83 (45-117) U/L Total Creatine Kinase 14 L (26-192) U/L Troponin I < 0.015 (0-0.045) ng/ml Total Protein 6.2 L (6.4-8.2) gm/dl Albumin 3.5 (3.4-5.0) gm/dl Globulin 2.7 (2.5-4.0) gm/dl Albumin/Globulin Ratio 1.3 (0.9-2) TSH 0.971 (0.300-4.500) uIu/ml Urine Color Urine Appearance (Clear) Urine pH (4.5-7.5) Ur Specific [place] (1.000-1.030) Urine Protein (Negative) Urine Glucose (UA) (Negative) Urine Ketones (Negative) Urine Blood (Negative) Urine Nitrite (Negative) Urine Bilirubin (Negative) Urine Urobilinogen (Negative) Ur Leukocyte Esterase (Negative) Urine WBC (Auto) (0-5) /hpf Urine RBC (Auto) (0-4) /hpf U Hyaline Cast (Auto) (0-5) /lpf U Epithel Cells (Auto) (0-5) /lpf Urine Bacteria (Auto) (Negative) COVID-19 Eval Order CovFluRsv at [facility] SARS-CoV-2 (PCR) (Negative) Influenza Type A (PCR) (Neg) Influenza Type B (PCR) (Neg) RSV (RT-PCR) (Neg) 08/24/20 Range/Units 15:53 WBC (4.8-10.8) K/uL RBC (4.2-5.4) M/uL Hgb (12.0-16.0) g/dL Hct (37-47) % MCV (80-100) fL MCH (25-34) pg MCHC (32-36) g/dL RDW Std Deviation (36.4-46.3) fL RDW Coeff of Andres (11.5-14.5) % Plt Count (130-400) K/uL MPV (7.4-10.4) fL Immature Gran % (Auto) % Neut % (Auto) % Lymph % (Auto) % [place] % (Auto) % Eos % (Auto) % Baso % (Auto) % Neut # (Auto) (1.4-6.5) K/uL Lymph # (Auto) (1.2-3.4) K/uL [place] # (Auto) (0.11-0.59) K/uL Eos # (Auto) (0-0.5) K/uL Baso # (Auto) (0-0.2) K/uL Immature Gran # (Auto) (0.00-0.02) K/uL PT (9.0-12.0) Seconds INR (0.9-1.1) Sodium (136-145) mmol/L Potassium (3.5-5.1) mmol/L Chloride (98-107) mmol/L Carbon Dioxide (21-32) mmol/L Anion Gap (3-11) BUN (7-18) mg/dl Creatinine (0.6-1.2) mg/dl Est Cr Clr Drug Dosing ml/min Est GFR ( Amer) Est GFR (Non-Af Amer) BUN/Creatinine Ratio (10-20) Glucose (70-99) mg/dl Lactate (0.4-2.0) mmol/L Calcium (8.5-10.1) mg/dl Magnesium (1.8-2.4) mg/dl Total Bilirubin (0.2-1) mg/dl AST (15-37) U/L ALT (12-78) U/L Alkaline Phosphatase (45-117) U/L Total Creatine Kinase (26-192) U/L Troponin I (0-0.045) ng/ml Total Protein (6.4-8.2) gm/dl Albumin (3.4-5.0) gm/dl Globulin (2.5-4.0) gm/dl Albumin/Globulin Ratio (0.9-2) TSH (0.300-4.500) uIu/ml Urine Color Urine Appearance (Clear) Urine pH (4.5-7.5) Ur Specific [place] (1.000-1.030) Urine Protein (Negative) Urine Glucose (UA) (Negative) Urine Ketones (Negative) Urine Blood (Negative) Urine Nitrite (Negative) Urine Bilirubin (Negative) Urine Urobilinogen (Negative) Ur Leukocyte Esterase (Negative) Urine WBC (Auto) (0-5) /hpf Urine RBC (Auto) (0-4) /hpf U Hyaline Cast (Auto) (0-5) /lpf U Epithel Cells (Auto) (0-5) /lpf Urine Bacteria (Auto) (Negative) COVID-19 Eval Order SARS-CoV-2 (PCR) NEGATIVE (Negative) Influenza Type A (PCR) Negative (Neg) Influenza Type B (PCR) Negative (Neg) RSV (RT-PCR) Negative (Neg) Administered Medications Discontinued Medications Daptomycin 275 mg/ Syringe 5.5 mls @ 2.75 mls/min IV NOW ONE; Protocol Stop: 08/24/20 15:39 Last Admin: 08/24/20 16:51 Dose: 2.75 mls/min Documented by: [id number] Aztreonam 2,000 mg/ Dextrose 120 mls @ 100 mls/hr IV NOW STA; Protocol Stop: 08/24/20 16:43 Last Admin: 08/24/20 16:53 Dose: 100 mls/hr Documented by: [id number] Promethazine HCl (Phenergan) 6.25 mg in 50.25 mls @ 201 mls/hr IV NOW STA Stop: 08/24/20 17:29 Last Infusion: 08/24/20 18:08 Dose: 0 mls/hr Documented by: [id number] Admin: 08/24/20 17:51 Dose: 201 mls/hr Documented by: [id number] Ioversol (Ioversol 100ml) 93 ml IV ONCE ONE Stop: 08/24/20 13:05 Last Admin: 08/24/20 13:04 Dose: 93 ml Documented by: [id number] Morphine Sulfate (Morphine Sulfate 4 Mg/Ml 1 Ml Carp\\Vial) 4 mg IV NOW STA Stop: 08/24/20 12:38 Last Admin: 08/24/20 13:34 Dose: 4 mg Documented by: [id number] Morphine Sulfate (Morphine Sulfate 2 Mg/Ml Carp) 2 mg IV NOW STA Stop: 08/24/20 15:40 Last Admin: 08/24/20 15:50 Dose: 2 mg Documented by: [id number] Ondansetron HCl (Ondansetron Inj 2 Mg/Ml 2 Ml Vial) 4 mg IV NOW STA Stop: 08/24/20 12:38 Last Admin: 08/24/20 13:35 Dose: 4 mg Documented by: [id number] Ondansetron HCl (Ondansetron Inj 2 Mg/Ml 2 Ml Vial) 4 mg IV NOW STA Stop: 08/24/20 15:56 Last Admin: 08/24/20 15:58 Dose: 4 mg Documented by: [id number] Discharge Plan Visit Data Chief Complaint: Catheter Replacement Stated Complaint: CATHETER FELL OUT AND ALL SWOLLEN ED Provider: Minor Carter Discharge Problem: Displacement of Bonilla catheter, Nausea, Abdominal pain, Cellulitis of labia Patient Disposition: Being Evaluated by Hospitalist Discharge Instructions Interventions: ED Discharge Assessment Last Done: 08/24/20 18:03 Forms Stand Alone Forms: My [facility] Prescriptions Prescriptions: No Action oxycodone-acetaminophen [Percocet] 7.5-325 mg tablet 1 tab PO Q6H PRN (Reason: Pain) RF: 0 cyclobenzaprine 5 mg tablet 5 mg PO TID PRN (Reason: Muscle Spasm) RF: 0 doxycycline hyclate 100 mg tablet 100 mg PO bid Qty: 28 RF: 0 ascorbic acid (vitamin C) 1,000 mg Tablet 1 g PO Q12 RF: 0 dantrolene 100 mg Capsule 100 mg PO TID RF: 0 buspirone 10 mg Tablet 10 mg PO BID RF: 0 docusate sodium 100 mg Tablet 100 mg PO BID RF: 0 lorazepam 0.5 mg Tablet 0.5 mg PO Q8 PRN (Reason: Anxiety) RF: 0 fluticasone propionate 50 mcg/actuation [place],Suspension 2 spray INTRANASAL QAM PRN (Reason: allergies) RF: 0 methenamine hippurate [Hiprex] 1 gram Tablet 1 g PO BID RF: 0 mirtazapine 15 mg Tablet 7.5 mg PO HS RF: 0 zolpidem 5 mg Tablet 5 mg PO HS PRN (Reason: Sleep) RF: 0 Xarelto 20 mg Tablet 20 mg PO QAM RF: 0 duloxetine [Cymbalta] 60 mg capsule,delayed release(DR/EC) 60 mg PO BID RF: 0 nystatin 100,000 unit/gram Powder 1 applic TOPICAL BID PRN (Reason: Skin Irritation) RF: 0 guaifenesin [Mucinex] 600 mg Tablet Extended Release 12hr 600 mg PO Q12H RF: 0 baclofen 20 mg tablet 20 mg PO QID RF: 0 gabapentin 600 mg tablet 600 mg PO QID RF: 0 baclofen 10 mg tablet 10 mg PO QID RF: 0 gabapentin 300 mg capsule 300 mg PO QID RF: 0 docusate sodium [Enemeez] 283 mg/5 mL Enema 283 mg CO HS RF: 0 melatonin 3 mg Tablet 3 mg PO HS PRN (Reason: Insomnia) RF: 0 Renacidin 1,980.6 mg-59.4 mg-980.4mg/30mL solution 30 ml irrigation [id number] RF: 0 sodium chloride 1 gram tablet 2 g PO TID RF: 0 lamotrigine 25 mg tablet 50 mg PO HS RF: 0 oxybutynin chloride 5 mg Tablet 5 mg PO Q6H PRN (Reason: Bladder Spasms) RF: 0 Referrals Referrals: Wade Lacy MD [Primary Care Provider] - Discharge Problem: Displacement of Bonilla catheter Qualifiers: Encounter type: initial encounter Qualified Code(s): T83.021A - Displacement of indwelling urethral catheter, initial encounter Abdominal pain Qualifiers: Abdominal location: generalized Qualified Code(s): R10.84 - Generalized abd ominal pain
--- NOTE | 2020-08-24 13:27 | Electrocardiogram Report ---
Test Reason : Blood Pressure : / mmHG Vent. Rate : 057 BPM Atrial Rate : 057 BPM P-R Int : 142 ms QRS Dur : 086 ms QT Int : 426 ms P-R-T Axes : 065 097 036 degrees QTc Int : 414 ms Sinus bradycardia Possible Left atrial enlargement Rightward axis Borderline ECG When compared with ECG of 25-MAR-2018 22:53, No significant change was found Confirmed by Dejan Eid ([id number]) on 08/24/2020 1:27:38 PM Referred By: REFERRED SELF Confirmed By:Dejan Eid
[2020-08-24 13:28] LABS: Appearance Urine Clear (Clear); Bacteria Urine Automated Negative (Negative); Bilirubin Urine Negative (Negative); Blood Urine Negative (Negative); Color Urine Dark Yellow; Glucose Urine UA Negative (Negative); Ketones Urine Negative (Negative); Leukocyte Esterase Urine 2+ (Negative); Nitrite Urine Positive (Negative); Protein Urine Negative (Negative); RBC Urine Automated 0-4 /hpf (0-4); Urobilinogen Urine Negative (Negative); WBC Urine Automated >30 /hpf (0-5); pH Urine 6.5 (4.5-7.5)
[2020-08-24 13:45] LABS: Basophils # (auto) 0.01 K/uL (0-0.2); Basophils % (auto) 0.2 %; Eosinophils % (auto) 2.2 %; Hematocrit (blood only) 37.1 % (37-47); Hemoglobin 12.3 g/dL (12.0-16.0); Immature Granulocytes # (auto) 0.02 K/uL (0.00-0.02); Immature Granulocytes % (auto) 0.4 %; Lymphocytes # (auto) 1.88 K/uL (1.2-3.4); Lymphocytes % (auto) 40.8 %; Mean Corpuscular Hemoglobin 30.1 pg (25-34); Mean Corpuscular Hgb Conc 33.2 g/dL (32-36); Mean Corpuscular Volume 90.7 fL (80-100); Mean Platelet Volume 10.3 fL (7.4-10.4); Monocytes # (auto) 0.43 K/uL (0.11-0.59); Monocytes % (auto) 9.3 %; Neutrophils # (auto) 2.17 K/uL (1.4-6.5); Neutrophils % (auto) 47.1 %; Platelet Count 104 K/uL (130-400); RDW Coefficient of Variation 13.8 % (11.5-14.5); RDW Standard Deviation 45.7 fL (36.4-46.3); Red Blood Count 4.09 M/uL (4.2-5.4); White Blood Count 4.61 K/uL (4.8-10.8)
[2020-08-24 13:51] LABS: INR 1.3 (0.9-1.1); Prothrombin Time 12.5 Seconds (9.0-12.0)
[2020-08-24 14:01] LABS: Alanine Aminotransferase 23 U/L (12-78); Albumin Level 3.5 gm/dl (3.4-5.0); Aspartate Aminotransferase 12 U/L (15-37); BUN Creatinine Ratio 30.3 (10-20); Blood Urea Nitrogen 9 mg/dl (7-18); Calcium 8.6 mg/dl (8.5-10.1); Carbon Dioxide 26 mmol/L (21-32); Chloride 111 mmol/L (98-107); Est GFR (African American) > 150.0; Est GFR (Non-African American) > 150.0; Glucose 106 mg/dl (70-99); Magnesium 1.8 mg/dl (1.8-2.4); Potassium 3.7 mmol/L (3.5-5.1); Sodium 142 mmol/L (136-145)
[2020-08-24 14:11] LABS: Albumin Globulin Ratio 1.3 (0.9-2); Alkaline Phosphatase 83 U/L (45-117); Bilirubin,Total 0.4 mg/dl (0.2-1); Globulin 2.7 gm/dl (2.5-4.0); Thyroid Stimulating Hormone 0.971 uIu/ml (0.300-4.500); Total Protein 6.2 gm/dl (6.4-8.2); Troponin I < 0.015 ng/ml (0-0.045)
--- NOTE | 2020-08-24 15:04 | CT Scan Report ---
ABDOMEN AND PELVIS CT WITH IV CONTRAST CT DOSE: 288.42 mGy.cm HISTORY: lower abdominal pain, nausea, labial swelling TECHNIQUE: Multiaxial CT images of the abdomen and pelvis were performed following the use of intrave nous contrast. A dose lowering technique was utilized adhering to the principles of ALARA. COMPARISON STUDY: Pelvis CT 12/29/2018. FINDINGS: Linear density at the basal left lower lobe likely represent subsegmental atelectasis or sc arring. The right lung base is clear. No pneumoperitoneum. No pneumatosis. Increase in size in the le ft sacral decubitus ulcer which measures approximately 3 cm. There is progressive sclerosis and destr uctive change involving the left ischial tuberosity. This suggests an acute on chronic osteomyelitis. There is a 5 mm hypodense lesion within the liver. This likely represents a cyst. The gallbladder, p ancreas, spleen, adrenal glands, and kidneys are unremarkable. No hydronephrosis. The main portal vei n is patent. Normal caliber abdominal aorta. No retroperitoneal lymphadenopathy. Multiple large calci fications stone/stones within the bladder. The bladder is decompressed by a Bonilla catheter. The uteru s and ovaries are within normal limits. There is moderate edema and thickening within the labia/perin eal soft tissues. Moderate well-formed stool seen throughout the colon. No bowel wall thickening or o bstruction. Prior right hemicolectomy. IMPRESSION: 1. Moderate edema and thickening of the labia/perineal soft tissues. This may represent an infectious or inflammatory process. 2. A 3 cm left sacral decubitus ulcer. Progressive erosive change and sclerosis at the left ischial t uberosity. This favors a chronic osteomyelitis. 3. Multiple bladder calculi. The bladder is decompressed by Bonilla catheter. 4. No bowel wall thickening or obstruction. 5. Postoperative changes consistent with prior right hemicolectomy. ACT 112: Negative or not required by law. Electronically signed by: Adam Yip M.D. 08/24/2020 3:02 PM
[2020-08-24] MEDS ORDERED: DAPTOmycin 275 MG in SYRINGE 0 ML IV ONE (15:38)
[2020-08-24] MEDS ORDERED: AZTREONAM 2,000 MG in DEXTROSE 5% 100 ML IV STA (15:38)
[2020-08-24] MEDS ORDERED: MoRPHine SULFATE 2 MG/ML CARP IV STA (15:39)
[2020-08-24 16:43] LABS: Influenza A virus by PCR Negative (Neg); Influenza B virus by PCR Negative (Neg); RSV by PCR Negative (Neg); SARS CoV2 RNA(COVID-19) InHosp NEGATIVE (Negative)
--- NOTE | 2020-08-24 16:50 | History & Physical Report ---
Date of Service August 24, 2020 Assessment & Plan (1) Displacement of Bonilla catheter: (2) Cellulitis of labia: (3) Abdominal pain: (4) Neurogenic bladder: Patient presented with dislodged Bonilla catheter and swelling/pain in the genital region. Question cellulitis. Admit to Med/Surg With patient's history of resistant bacterial infection and recurrent UTI, recommend broad spectrum abx for now. Aztreonam and Dapto started. CK added to labs. Repeat CBC, CMP, CK in AM Consult ID- with sacral decubitus, ? osteomyelitis, and now cellulitis Bonilla catheter was placed in the ED and functioning well. Monitor for signs of problems/dislodging. Urology consulted as well Blood and urine cultures pending Continue oxycodone PRN pain (5) Chronic hypotension: NSS 100 ml/hr x 1 bag Encourage PO intake as tolerated Monitor for signs of continued hypotension- ? 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 Add Phenergan PRN (8) Depression: (9) Anxiety: Patient on multiple home medications including PRN lorazepam. OK to continue home doses and medications (10) History of DVT (deep vein thrombosis): (11) DVT prophylaxis: Continue chronic Xarelto tx History of Present Illness Chief Complaint: Bonilla issue, genital swelling Primary Care Provider: Wade Lacy MD Patient is a 29 yo female with PMHx including history of cervical fracture resulting in quadriplegia, neurogenic bladder with chronic Bonilla, and chronic hypotension, She also has history of depression, anxiety, chronic stage IV sacral decubitus ulceration, and history of DVT. She presented to the ED today with concern of Bonilla catheter dislodging. The patient has chronic indwelling Bonilla catheter, and she has had the current Bonilla in for about 1 month. She does have chronic on and off UTI's and her urine is colonized typically with Pseudomonas per record review. Per the patient and her mother, her catheter fell out this morning with the balloon still inflated when they were inspecting her genital region. They noted that her labia/genital area was extremely swollen and tender. This is when the catheter fell out as well. Since then, she has noted continued pain in the area. She has been undergoing routine wound care for her chronic sacral decubitus ulceration, and her last treatment at the wound center was on . She did have a culture done which grew MSSA. No changes in treatment that day that would have caused any trauma. No fall or other trauma that they know of. The patient has had nausea and vomiting since coming to the ED. She also has had hypotension. She was recently (1 week ago) restarted on sodium tablets to help maintain her BP. The hypotension is not new, but she was previously tolerating it up until this week. She does have history of receiving Botox injections for her neurogenic bladder/bladder spasms, but she hasn't had Botox in almost 1 year. Lab evaluation has been unrevealing since presentation. WBC Count was slightly low. No fever. TSH within normal. Troponin was undetectable. Renal and liver function intact. CT of the abd/pelvis showed moderate edema and thickening of the labia/perineal soft tissues which could represent infectious or inflammatory process. Her sacral decubitus ulcer was also noted and she had progressive erosive changes of the left ischial tuberosity favoring osteomyelitis. Allergies Allergy/AdvReac Type Severity Reaction Status Date / Time cefepime Allergy Severe ANAPHYLAXIS Verified 08/24/20 15:05 imipenem Allergy Severe SEIZURE Verified 08/24/20 15:05 fentanyl Allergy Intermediate ITCHY AND Verified 08/24/20 15:05 RASH Penicillins Allergy Intermediate RASH PER Verified 08/24/20 15:05 MOTHER vancomycin Allergy Intermediate RASH Verified 08/24/20 15:05 levofloxacin Allergy Mild rash Verified 08/24/20 15:05 Sulfa (Sulfonamide Allergy Unknown Rash Verified 08/24/20 15:05 Antibiotics) Home Medications Medication Instructions Recorded Confirmed Type Xarelto 20 mg PO QAM 03/07/18 08/24/20 History ascorbic acid (vitamin C) 1 g PO Q12 03/07/18 08/24/20 History buspirone 10 mg PO BID 03/07/18 08/24/20 History dantrolene 100 mg PO TID 03/07/18 08/24/20 History docusate sodium 100 mg PO BID 03/07/18 08/24/20 History fluticasone propionate 2 spray INTRANASAL QAM PRN 03/07/18 08/24/20 History lorazepam 0.5 mg PO Q8 PRN 03/07/18 08/24/20 History methenamine hippurate [Hiprex] 1 g PO BID 03/07/18 08/24/20 History mirtazapine 7.5 mg PO HS 03/07/18 08/24/20 History zolpidem 5 mg PO HS PRN 03/07/18 08/24/20 History nystatin 1 applic TOPICAL BID PRN 03/18/18 08/24/20 History guaifenesin [Mucinex] 600 mg PO Q12H 04/06/18 08/24/20 History baclofen 20 mg PO QID 12/28/18 08/24/20 History duloxetine 60 mg capsule,delayed 60 mg PO BID cap 02/02/19 08/24/20 History release gabapentin 600 mg tablet 600 mg PO QID tab 02/02/19 08/24/20 History oxycodone-acetaminophen 7.5 mg-325 1 tab PO Q6H PRN 06/15/19 08/24/20 History mg tablet melatonin 3 mg PO HS PRN 08/13/19 08/24/20 History baclofen 10 mg PO QID 09/25/19 08/24/20 History docusate sodium [Enemeez] 283 mg MI HS 09/25/19 08/24/20 History gabapentin 300 mg PO QID 09/25/19 08/24/20 History cyclobenzaprine 5 mg tablet 5 mg PO TID PRN 11/16/19 08/24/20 History doxycycline hyclate 100 mg tablet 100 mg PO bid #28 tab 08/19/20 08/24/20 Rx citric fg-jvheapluhhy-dts carb 30 ml IRRIGATION 3XWK 08/24/20 08/24/20 History [Renacidin] lamotrigine 50 mg PO HS 08/24/20 08/24/20 History oxybutynin chloride 5 mg PO Q6H PRN 08/24/20 08/24/20 History sodium chloride 2 g PO TID 08/24/20 08/24/20 History Past Med/Surg History Medical History Anxiety Autonomic dysreflexia Depression Environmental allergies History of DVT (deep vein thrombosis) "UPPER EXTREMITY"- ON XARELTO (NO FURTHER DETAILS) History of seizure 2013 - ? D/T MEDS Hx of pneumothorax hx with chest tube. Treated at [facility] Indwelling Bonilla catheter present CHANGED EVERY 2 WEEKS Neurogenic bladder Port-A-Cath in place 06/15/18= A-PORT REPOSITION= MAC SEDATION AT [facility]. 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 07/2019. Status post debridement LEFT ISCHIAL ULCER DEBRIDEMENT/PLACEMENT OF WOUND VAC= 03/14/18= LMA #4 Status post debridement (~07/2018) left ischial ulcer debridement with flap 07/2018: MAC#3, ETT#7.0, Grade 2 View Family History Father Diabetes Brother Depression Other No family history of adverse response to anesthesia Social History Smoking Status: Former smoker Cigarettes Per Day: HX 1/2 PPD PER RECORDS; Second Hand Exposure: No; Hx Alcohol Use: No Hx Substance Use: No Preferred Language: Kiswahili Communication Ability: Effective Visual Impairment: Limited Hearing Ability: Normal Electric Switch Repairer Required: No Beliefs That Will Affect Care: None marital status: Single Current Living Situation: Family Current Living Situation Comment: Lives with mom, dad and brother current occupational status: disabled How many Children do You have: 0 Other Information That Helps Us Care for You: No Feels Safe at Home: Yes Safety Concerns: Feels Safe At This Time Childhood Exposure to Second-Hand Smoke: No Assistive Devices: Glasses Review of Systems Review of Systems: All systems reviewed & are unremarkable except as noted in HPI & below Physical Exam Constitutional: well developed and well nourished; no acute distress Eyes: PERRL, conjunctivae normal, anicteric sclerae ENMT: external ear and nose normal, oropharynx normal Neck: trachea midline, no thyromegaly Respiratory: normal respiratory effort, lungs clear to auscultation Cardiovascular: RRR, no murmur, no edema Gastrointestinal (Abdomen): Inspection/Auscultation: abdomen normal to inspection and normal bowel sounds; abdomen not distended Musculoskeletal: Quadriplegic, but she does move her upper extremities to an extent Psychiatric: A+Ox3, euthymic affect Genitourinary: Edema of the right labia Results & Data Results & Data ([facility]) Vital Signs (Past 12 Hours) Vital Signs Temp Pulse Pulse Pulse Resp BP BP 08/24/20 15:51 57 L 14 08/24/20 15:50 59 L 13 100/59 L 08/24/20 14:49 71 20 08/24/20 14:48 122/79 08/24/20 13:21 08/24/20 13:10 85 16 109/68 08/24/20 13:00 61 20 08/24/20 12:34 57 L 19 08/24/20 12:28 59 L 20 109/68 08/24/20 11:43 36.3 C L 82 18 57/39 L BP Pulse Ox 08/24/20 15:51 97 08/24/20 15:50 96 08/24/20 14:49 122/79 95 08/24/20 14:48 08/24/20 13:21 98 08/24/20 13:10 95 08/24/20 13:00 08/24/20 12:34 08/24/20 12:28 08/24/20 11:43 97 Laboratory Results Laboratory Results - last 24 hr 08/24/20 08/24/20 08/24/20 13:14 13:27 13:27 WBC 4.61 L RBC 4.09 L Hgb 12.3 Hct 37.1 MCV 90.7 MCH 30.1 MCHC 33.2 RDW Std Deviation 45.7 RDW Coeff of Andres 13.8 Plt Count 104 L MPV 10.3 Immature Gran % (Auto) 0.4 Neut % (Auto) 47.1 Lymph % (Auto) 40.8 Starr % (Auto) 9.3 Eos % (Auto) 2.2 Baso % (Auto) 0.2 Neut # (Auto) 2.17 Lymph # (Auto) 1.88 Starr # (Auto) 0.43 Eos # (Auto) 0.10 Baso # (Auto) 0.01 Immature Gran # (Auto) 0.02 PT 12.5 H INR 1.3 H Sodium Potassium Chloride Carbon Dioxide Anion Gap BUN Creatinine Est Cr Clr Drug Dosing Est GFR ( Amer) Est GFR (Non-Af Amer) BUN/Creatinine Ratio Glucose Lactate Calcium Magnesium Total Bilirubin AST ALT Alkaline Phosphatase Total Creatine Kinase Troponin I Total Protein Albumin Globulin Albumin/Globulin Ratio TSH Urine Color Dark Yellow Urine Appearance Clear Urine pH 6.5 Ur Specific [place] 1.020 Urine Protein Negative Urine Glucose (UA) Negative Urine Ketones Negative Urine Blood Negative Urine Nitrite Positive A Urine Bilirubin Negative Urine Urobilinogen Negative Ur Leukocyte Esterase 2+ H Urine WBC (Auto) >30 H Urine RBC (Auto) 0-4 U Hyaline Cast (Auto) 1-5 U Epithel Cells (Auto) 10-20 H Urine Bacteria (Auto) Negative COVID-19 Eval Order SARS-CoV-2 (PCR) Influenza Type A (PCR) Influenza Type B (PCR) RSV (RT-PCR) 08/24/20 08/24/20 08/24/20 13:27 13:27 15:53 WBC RBC Hgb Hct MCV MCH MCHC RDW Std Deviation RDW Coeff of Andres Plt Count MPV Immature Gran % (Auto) Neut % (Auto) Lymph % (Auto) Starr % (Auto) Eos % (Auto) Baso % (Auto) Neut # (Auto) Lymph # (Auto) Starr # (Auto) Eos # (Auto) Baso # (Auto) Immature Gran # (Auto) PT INR Sodium 142 Potassium 3.7 Chloride 111 H Carbon Dioxide 26 Anion Gap 5.0 BUN 9 Creatinine 0.31 L Est Cr Clr Drug Dosing 247.0 Est GFR ( Amer) > 150.0 Est GFR (Non-Af Amer) > 150.0 BUN/Creatinine Ratio 30.3 H Glucose 106 H Lactate 1.0 Calcium 8.6 Magnesium 1.8 Total Bilirubin 0.4 AST 12 L ALT 23 Alkaline Phosphatase 83 Total Creatine Kinase 14 L Troponin I < 0.015 Total Protein 6.2 L Albumin 3.5 Globulin 2.7 Albumin/Globulin Ratio 1.3 TSH 0.971 Urine Color Urine Appearance Urine pH Ur Specific [place] Urine Protein Urine Glucose (UA) Urine Ketones Urine Blood Urine Nitrite Urine Bilirubin Urine Urobilinogen Ur Leukocyte Esterase Urine WBC (Auto) Urine RBC (Auto) U Hyaline Cast (Auto) U Epithel Cells (Auto) Urine Bacteria (Auto) COVID-19 Eval Order CovFluRsv at [facility] SARS-CoV-2 (PCR) Influenza Type A (PCR) Influenza Type B (PCR) RSV (RT-PCR) 08/24/20 15:53 WBC RBC Hgb Hct MCV MCH MCHC RDW Std Deviation RDW Coeff of Andres Plt Count MPV Immature Gran % (Auto) Neut % (Auto) Lymph % (Auto) Starr % (Auto) Eos % (Auto) Baso % (Auto) Neut # (Auto) Lymph # (Auto) Starr # (Auto) Eos # (Auto) Baso # (Auto) Immature Gran # (Auto) PT INR Sodium Potassium Chloride Carbon Dioxide Anion Gap BUN Creatinine Est Cr Clr Drug Dosing Est GFR ( Amer) Est GFR (Non-Af Amer) BUN/Creatinine Ratio Glucose Lactate Calcium Magnesium Total Bilirubin AST ALT Alkaline Phosphatase Total Creatine Kinase Troponin I Total Protein Albumin Globulin Albumin/Globulin Ratio TSH Urine Color Urine Appearance Urine pH Ur Specific [place] Urine Protein Urine Glucose (UA) Urine Ketones Urine Blood Urine Nitrite Urine Bilirubin Urine Urobilinogen Ur Leukocyte Esterase Urine WBC (Auto) Urine RBC (Auto) U Hyaline Cast (Auto) U Epithel Cells (Auto) Urine Bacteria (Auto) COVID-19 Eval Order SARS-CoV-2 (PCR) NEGATIVE Influenza Type A (PCR) Negative Influenza Type B (PCR) Negative RSV (RT-PCR) Negative Diagnostic Findings CT ABD/PELVIS: IMPRESSION: 1. Moderate edema and thickening of the labia/perineal soft tissues. This may represent an infectious or inflammatory process. 2. A 3 cm left sacral decubitus ulcer. Progressive erosive change and sclerosis at the left ischial tuberosity. This favors a chronic osteomyelitis. 3. Multiple bladder calculi. The bladder is decompressed by Bonilla catheter. 4. No bowel wall thickening or obstruction. 5. Postoperative changes consistent with prior right hemicolectomy. Code Status & VTE Plan VTE Prophylaxis Plan VTE Prophylaxis will be ordered: Yes Supervising Physician Co-Signing Physician Notes Pt seen and examined by me, care coordinated with May Pimentel PA-C, pls refer to her note above for further detail. Pt is a 29 yo F with hx of cervical fracture resulting in quadriplegia, ne urogenic bladder with chronic Bonilla, and chronic hypotension, chronic stage IV sacral decubitus ulceration, and history of DVT. She presented to the ED d/t Bonilla catheter dislodging. The patient has chronic indwelling Bonilla catheter, and she has had the current Bonilla in for about 1 month. She does have chronic on and off UTI's and her urine is colonized typically with Pseudomonas per record review. Per the patient and her mother, her catheter fell out this morning with the balloon still inflated when they were inspecting her genital region. They noted that her labia/genital area was extremely swollen and tender. She has been undergoing routine wound care for her chronic sacral decubitus ulceration, and her last treatment at the wound center was on . She did have a culture done which grew MSSA. The patient has had nausea and vomiting since coming to the ED. She also has had hypotension. She does have history of receiving Botox injections for her neurogenic bladder/bladder spasms, but she hasn't had Botox in almost [address] of the abd/pelvis showed moderate edema and thickening of the labia/perineal soft tissues which could represent infectious or inflammatory process. Her sacral decubitus ulcer was also noted and she had progressive erosive changes of the left ischial tuberosity favoring osteomyelitis. Pt is currently laying in bed, alert and oriented and answering questions appropriately. Pt's mother is present at the bedside. Bonilla catheter was replaced in the ED. Pt does complain of nausea. Lung sounds are clear to auscultation, heart sounds regular. Abdomen soft, mildly tender to palp., + bowel sounds. Genital region c/w right labial edema. Skin is warm and dry. Given concern for poss. infectious process and hx of abx allergies, will start IV broad spectrum Abx. This will be further discussed with ID given several poss. inf. processes - sacral ulcer/ UTI/ chronic osteo/ skin-labial cellulitis?. Will also further discuss w/ urology. Abhay Arevalo MD (1) Abdominal pain Abdominal location: generalized Qualified Code(s): R10.84 - Generalized abdominal pain (2) Displacement of Bonilla catheter Encounter type: initial encounter Qualified Code(s): T83.021A - Displacement of indwelling urethral catheter, initial encounter
[2020-08-24 17:12] LABS: Creatine Kinase 14 U/L (26-192)
[2020-08-24] MEDS ORDERED: PROMETHAZINE 6.25 MG/50.25 ML BAG IV STA (17:15)
[2020-08-24] MEDS ORDERED: LORazepam 0.5 MG TAB PO PRN (19:14)
[2020-08-24] MEDS ORDERED: CYCLOBENZAPRINE HCL 10 MG TAB PO PRN (19:14)
[2020-08-24] MEDS ORDERED: ACETAMINOPHEN 325 MG TAB PO PRN (19:14)
[2020-08-24] MEDS ORDERED: oxyCODONE/APAP 7.5/325MG TAB PO PRN (19:14)
[2020-08-24] MEDS ORDERED: ZOLPIDEM TARTRATE 5 MG TAB PO PRN (19:14)
[2020-08-24] MEDS ORDERED: OXYBUTYNIN CHLORIDE 5 MG TAB PO PRN (19:14)
[2020-08-24] MEDS ORDERED: CITRIC AC GLUCONOLACT MAG CARB IR SCH (19:14)
[2020-08-24] MEDS ORDERED: MELATONIN 3 MG TAB PO PRN (19:14)
[2020-08-24] MEDS ORDERED: PROMETHAZINE HCL 6.25 MG in SODIUM CHLORIDE 0.9% 50 ML IV PRN (19:14)
[2020-08-24] MEDS ORDERED: AZTREONAM CONSULT ACTIVE PRN (19:31)
[2020-08-24] MEDS ORDERED: SODIUM CHLORIDE 0.9% 1000ML 1,000 ML IV SCH (20:00)
[2020-08-24] MEDS: MIRTAZAPINE TAB 15 MG TAB PO SCH (21:36)
[2020-08-24] MEDS: DOCUSATE SODIUM 100 MG CAP PO SCH (21:37)
[2020-08-24] MEDS: METHENAMINE HIPPURATE 1 GM TAB PO SCH (21:37)
[2020-08-24] MEDS: GABAPENTIN 600 MG TAB PO SCH (21:37)
[2020-08-24] MEDS: GABAPENTIN 300 MG CAP PO SCH (21:37)
[2020-08-24] MEDS: DANTROLENE SODIUM 25 MG CAP PO SCH (21:38)
[2020-08-24] MEDS: busPIRone 5 MG TAB PO SCH (21:38)
[2020-08-24] MEDS: SODIUM CHLORIDE 1 GM TABLET PO SCH (21:38)
[2020-08-24] MEDS: lamoTRIgine 25 MG TAB PO SCH (21:38)
[2020-08-24] MEDS: BACLOFEN 20 MG TAB PO SCH (21:39)
[2020-08-24] MEDS: BACLOFEN 10 MG TAB PO SCH (21:39)
[2020-08-24] MEDS: ASCORBIC ACID 500 MG TAB PO SCH (21:39)
[2020-08-24] MEDS: SOD PHOSPHATE/SOD BIPHOSPHATE ENEMA 132 ML BTL PR PRN (22:34)
[2020-08-25] MEDS: MoRPHine SULFATE 2 MG/ML CARP IV PRN ×4 (00:39→21:16)
[2020-08-25] MEDS: AZTREONAM 2,000 MG in DEXTROSE 5% 100 ML IV SCH ×2 (04:48→16:16)
[2020-08-25] MEDS: oxyCODONE HCL IR 5 MG TAB (IMMEDIATE RELEASE) PO PRN ×3 (05:55→19:32)
[2020-08-25] MEDS: ONDANSETRON INJ 2 MG/ML 2 ML VIAL IV PRN (05:55)
[2020-08-25 06:13] LABS: Hematocrit (blood only) 33.2 % (37-47); Hemoglobin 11.2 g/dL (12.0-16.0); Mean Corpuscular Hemoglobin 30.4 pg (25-34); Mean Corpuscular Hgb Conc 33.7 g/dL (32-36); Mean Corpuscular Volume 90.2 fL (80-100); RDW Coefficient of Variation 14.1 % (11.5-14.5); RDW Standard Deviation 46.7 fL (36.4-46.3); Red Blood Count 3.68 M/uL (4.2-5.4); White Blood Count 2.65 K/uL (4.8-10.8)
[2020-08-25 06:39] LABS: Basophils # (auto) 0.01 K/uL (0-0.2); Basophils % (auto) 0.4 %; Eosinophils % (auto) 3.8 %; Lymphocytes # (auto) 1.04 K/uL (1.2-3.4); Lymphocytes % (auto) 39.2 %; Mean Platelet Volume 10.5 fL (7.4-10.4); Monocytes # (auto) 0.33 K/uL (0.11-0.59); Monocytes % (auto) 12.5 %; Neutrophils # (auto) 1.17 K/uL (1.4-6.5); Neutrophils % (auto) 44.1 %; Platelet Count 89 K/uL (130-400); Platelet Estimate Decreased (Normal)
[2020-08-25 06:48] LABS: Alanine Aminotransferase 19 U/L (12-78); Albumin Level 3.1 gm/dl (3.4-5.0); Aspartate Aminotransferase 11 U/L (15-37); BUN Creatinine Ratio 35.1 (10-20); Blood Urea Nitrogen 8 mg/dl (7-18); Calcium 8.6 mg/dl (8.5-10.1); Carbon Dioxide 27 mmol/L (21-32); Chloride 110 mmol/L (98-107); Creatinine Clr Calc Pharmacy 336.4 ml/min; Est GFR (African American) > 150.0; Est GFR (Non-African American) > 150.0; Glucose 93 mg/dl (70-99); Potassium 3.4 mmol/L (3.5-5.1); Sodium 141 mmol/L (136-145)
[2020-08-25 06:51] LABS: Albumin Globulin Ratio 1.4 (0.9-2); Alkaline Phosphatase 67 U/L (45-117); Bilirubin,Total 0.4 mg/dl (0.2-1); Creatine Kinase 15 U/L (26-192); Globulin 2.2 gm/dl (2.5-4.0); Total Protein 5.3 gm/dl (6.4-8.2)
[2020-08-25] MEDS: ASCORBIC ACID 500 MG TAB PO SCH ×2 (08:52→20:51)
[2020-08-25] MEDS: RIVAROXABAN 20 MG TAB PO SCH (08:52)
[2020-08-25] MEDS: GABAPENTIN 300 MG CAP PO SCH ×4 (08:52→20:51)
[2020-08-25] MEDS: DULoxetine HCL 60 MG CAP PO SCH ×2 (08:52→16:10)
[2020-08-25] MEDS: busPIRone 5 MG TAB PO SCH ×2 (08:53→20:53)
[2020-08-25] MEDS: BACLOFEN 20 MG TAB PO SCH ×4 (08:53→20:51)
[2020-08-25] MEDS: DANTROLENE SODIUM 25 MG CAP PO SCH ×3 (08:53→20:54)
[2020-08-25] MEDS: SODIUM CHLORIDE 1 GM TABLET PO SCH ×3 (08:54→20:53)
[2020-08-25] MEDS: METHENAMINE HIPPURATE 1 GM TAB PO SCH ×2 (08:54→20:53)
[2020-08-25] MEDS: DOCUSATE SODIUM 100 MG CAP PO SCH ×2 (08:54→20:52)
[2020-08-25] MEDS: GABAPENTIN 600 MG TAB PO SCH ×4 (08:55→20:51)
[2020-08-25] MEDS: BACLOFEN 10 MG TAB PO SCH ×4 (08:55→20:52)
--- NOTE | 2020-08-25 09:05 | Urology Consultation ---
Date of Consultation August 25, 2020 Assessment & Plan (1) Neurogenic bladder: Bonilla catheter now functioning appropriately Continue to catheter, cover for appropriate infectious issues Stones in the bladder should likely be addressed at some stage but not urgently -previously has addressed her stones at the time of bladder Botox injections, she is hoping to have a subsequent procedure scheduled at some point in the not too distant future Hope to see improvement in skin infection/sacral decub with antibiotic coverage Labial swelling appears to be more edematous than infectious in my opinion, however if this worsens or changes in his nature, likely warrants gynecological evaluation -I hope to see good improvement with repositioning of her Bonilla catheter as well as her supportive care/antibiotics History of Present Illness Attending Physician: Adam Young MD History of Present Illness Unfortunate 29-year-old female with a history of paraplegia secondary to a cervical fracture and subsequent sequela of the paraplegia She has a neurogenic bladder requiring Bonilla catheter drainage chronically She has limited mobility She has had recurrent urinary tract infections with a variety of organisms She has other wound related issues including a sacral decubitus ulcer and now with some labial cellulitis? On imaging, she appears to have numerous stones within the dependent portion of the bladder around the catheter She apparently had a dislodged catheter prior to arrival but a catheter has been replaced and is appears to be in good position on imaging and seems to be draining well She has been started on broad-spectrum antibiotics to cover both the skin infection/decubitus ulcer as well as potential urinary tract infections She is afebrile and hemodynamically stable She has a low white blood cell count She has an extremely low creatinine has been consulted to evaluate her catheter drainage as well as the labial swelling? Allergies Allergy/AdvReac Type Severity Reaction Status Date / Time cefepime Allergy Severe ANAPHYLAXIS Verified 08/24/20 15:05 imipenem Allergy Severe SEIZURE Verified 08/24/20 15:05 fentanyl Allergy Intermediate ITCHY AND Verified 08/24/20 15:05 RASH Penicillins Allergy Intermediate RASH PER Verified 08/24/20 15:05 MOTHER vancomycin Allergy Intermediate RASH Verified 08/24/20 15:05 levofloxacin Allergy Mild rash Verified 08/24/20 15:05 Sulfa (Sulfonamide Allergy Unknown Rash Verified 08/24/20 15:05 Antibiotics) Home Medications Medication Instructions Recorded Confirmed Type Xarelto 20 mg PO QAM 03/07/18 08/24/20 History ascorbic acid (vitamin C) 1 g PO Q12 03/07/18 08/24/20 History buspirone 10 mg PO BID 03/07/18 08/24/20 History dantrolene 100 mg PO TID 03/07/18 08/24/20 History docusate sodium 100 mg PO BID 03/07/18 08/24/20 History fluticasone propionate 2 spray INTRANASAL QAM PRN 03/07/18 08/24/20 History lorazepam 0.5 mg PO Q8 PRN 03/07/18 08/24/20 History methenamine hippurate [Hiprex] 1 g PO BID 03/07/18 08/24/20 History mirtazapine 7.5 mg PO HS 03/07/18 08/24/20 History zolpidem 5 mg PO HS PRN 03/07/18 08/24/20 History nystatin 1 applic TOPICAL BID PRN 03/18/18 08/24/20 History guaifenesin [Mucinex] 600 mg PO Q12H 04/06/18 08/24/20 History baclofen 20 mg PO QID 12/28/18 08/24/20 History duloxetine 60 mg capsule,delayed 60 mg PO BID cap 02/02/19 08/24/20 History release gabapentin 600 mg tablet 600 mg PO QID tab 02/02/19 08/24/20 History oxycodone-acetaminophen 7.5 mg-325 1 tab PO Q6H PRN 06/15/19 08/24/20 History mg tablet melatonin 3 mg PO HS PRN 08/13/19 08/24/20 History baclofen 10 mg PO QID 09/25/19 08/24/20 History docusate sodium [Enemeez] 283 mg [place] HS 09/25/19 08/24/20 History gabapentin 300 mg PO QID 09/25/19 08/24/20 History cyclobenzaprine 5 mg tablet 5 mg PO TID PRN 11/16/19 08/24/20 History doxycycline hyclate 100 mg tablet 100 mg PO bid #28 tab 08/19/20 08/24/20 Rx citric sh-yhkxfrrfgji-exj carb 30 ml IRRIGATION 3XWK 08/24/20 08/24/20 History [Renacidin] lamotrigine 50 mg PO HS 08/24/20 08/24/20 History oxybutynin chloride 5 mg PO Q6H PRN 08/24/20 08/24/20 History sodium chloride 2 g PO TID 08/24/20 08/24/20 History Patient History Medical History Anxiety Autonomic dysreflexia Depression Environmental allergies History of DVT (deep vein thrombosis) "UPPER EXTREMITY"- ON XARELTO (NO FURTHER DETAILS) History of seizure 2013 - ? D/T MEDS Hx of pneumothorax hx with chest tube. Treated at [facility] Indwelling Bonilla catheter present CHANGED EVERY 2 WEEKS Neurogenic bladder Port-A-Cath in place 06/15/18= A-PORT REPOSITION= MAC SEDATION AT [facility]. 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 07/2019. 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 Machine Operator Required: No Beliefs That Will Affect Care: None marital status: Single Current Living Situation: Family Current Living Situation Comment: Lives with mom, dad and brother current occupational status: disabled How many Children do You have: 0 Other Information That Helps Us Care for You: No Feels Safe at Home: Yes Safety Concerns: Feels Safe At This Time Childhood Exposure to Second-Hand Smoke: No Assistive Devices: Glasses Physical Exam Constitutional: well developed and well nourished Moves upper extremities with some contracture of the wrists, and does not move her lower extremities at all Reports that she does have some sensation through the lower abdomen and upper thighs Neck: neck nontender Prior trachhealed nicely Respiratory: normal respiratory effort; no respiratory distress and does not use accessory muscles Cardiovascular: Rate/Rhythm: regular rate Vessels: radial pulses present Extremities: no edema Gastrointestinal (Abdomen): Inspection/Auscultation: abdomen normal to inspection Percussion/Palpation: abdomen soft; abdomen nontender and no guarding Healed surgical incisions Musculoskeletal: Head/Neck/Chest: normocephalic and head atraumatic Extremities: extremities normal to inspection Skin: no rashes and no lesions Trauma: no evidence of skin trauma Neurologic: awake; not obtunded Speech / Cognition: normal speech Motor/Sensory: no tremor Psychiatric: Orientation: alert and oriented x 3 Genitourinary: + abnormal external appearance (Fairly significant swelling of the labia) and no bladder abnormality Labial swelling appears to be more edematous than cellulitic in my opinion, it is, however, extremely unilateral No palpable crepitus or fluctuance Lymphatic: no lymphadenopathy Results & Data ([facility]) Vital Signs (Past 12 Hours) Vital Signs Temp Pulse Resp BP Pulse Ox 08/25/20 00:23 36.7 C 52 L 16 123/79 98 PG Care Time/CCT Total # of Minutes Spent Total Time Spent with Patient: Total time spent is greater than 50% in coordination of care (as documented) at patient's floor/unit and/or counseling patient: Coding Level of Care Code 63802 Inpt Consult Level 4 Diagnoses Neurogenic bladder N31.9
[2020-08-25] MEDS ORDERED: POTASSIUM CHLORIDE 20 MEQ/15 ML UDC PO ONE (10:00)
[2020-08-25] MEDS ORDERED: diphenhydrAMINE HCL 25 MG/10 ML UDC PO PRN (15:13)
[2020-08-25] MEDS ORDERED: DAPTOmycin 225 MG in SYRINGE 0 ML IV SCH (16:00)
[2020-08-25] MEDS: DAPTOmycin 250 MG in SYRINGE 0 ML IV SCH (16:11)
--- NOTE | 2020-08-25 17:15 | Hospitalist Progress Note ---
Date of Service August 25, 2020 Assessment & Plan (1) Displacement of Bonilla catheter: (2) Cellulitis of labia: (3) Abdominal pain: (4) Neurogenic bladder: Labial/Perineal cellulitis Neurogenic bladder H/O recurrent UTI--and chronic Bonilla -CT ABD:Moderate edema and thickening of the labia/perineal soft tissues. This may represent an infectious or inflammatory process. A 3 cm left sacral decubitus ulcer. Progressive erosive change and sclerosis at the left ischial tuberosity. This favors a chronic osteomyelitis. Multiple bladder calculi. The bladder is decompressed by Bonilla catheter. 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: Left Decubitus ulcer Chronic osteomyelitis Continue antibiotics as above Wound care consulted (7) Nausea & vomiting: Antiemetics as needed (8) Depression: (9) Anxiety: Continue home medications (10) History of DVT (deep vein thrombosis): (11) DVT prophylaxis: On Xarelto CODE STATUS Full code Admission and Anticipated Discharge Date Admission Date: August 24, 2020 Subjective Patient is seen and examined at bedside Reports having labial swelling, pain Also reports having itching at the site of the Port Denies chest pain, dyspnea, dizziness, nausea, abdominal pain Offers no other complaints Review of Systems Review of Systems: All systems reviewed & are unremarkable except as noted in HPI & below Physical Exam Physical Exam: Physical Exam: Vitals signs as noted above General Appearance:Thin, frail, chronic ill appearing, no apparent distress Head: normocephalic, Atraumatic Eyes: normal inspection, EOMI Neck: supple, Trachea midline Respiratory/Chest: Normal breath sounds, CTA, No accessory muscle use Cardiovascular: S1, S2, No murmur Chest:+ Chemo port Abdomen/GI:Soft, Non tender, Bowel sounds present : Labial swelling, erythematous Extremities/Musculoskelatal:normal inspection, no edema Neurologic/Psych:AAOX3, +Quadriplegia, LE > UE Skin: normal color, warm, +decubitus ulcer Results & Data Results & Data ([facility]) Vital Signs (Past 12 Hours) Vital Signs Temp Pulse Resp BP Pulse Ox 08/25/20 14:41 37.3 C 81 16 93/55 L 94 Laboratory Results Short CBC 08/25/20 Range/Units 05:31 WBC 2.65 L (4.8-10.8) K/uL Hgb 11.2 L (12.0-16.0) g/dL Hct 33.2 L (37-47) % Plt Count 89 L (130-400) K/uL BMP 08/25/20 05:31 Sodium 141 Potassium 3.4 L Chloride 110 H Carbon Dioxide 27 BUN 8 Creatinine 0.23 L Glucose 93 Calcium 8.6 Cardiac Enzymes 08/24/20 08/25/20 Range/Units 13:27 05:31 Total Creatine Kinase 14 L 15 L (26-192) U/L Liver Function 08/25/20 Range/Units 05:31 Total Bilirubin 0.4 (0.2-1) mg/dl AST 11 L (15-37) U/L ALT 19 (12-78) U/L Alkaline Phosphatase 67 (45-117) U/L Albumin 3.1 L (3.4-5.0) gm/dl (1) Displacement of Bonilla catheter Encounter type: initial encounter Qualified Code(s): T83.021A - Displacement of indwelling urethral catheter, initial encounter (2) Abdominal pain Abdominal location: generalized Qualified Code(s): R10.84 - Generalized abdominal pain
[2020-08-25] MEDS: HEPARIN 100 UNIT/ML 5ML FLUSH FLUSH PRN ×2 (20:11→21:16)
[2020-08-25] MEDS: MIRTAZAPINE TAB 15 MG TAB PO SCH (20:52)
[2020-08-25] MEDS: lamoTRIgine 25 MG TAB PO SCH (20:52)
[2020-08-25] MEDS: diphenhydrAMINE HCl 12.5 MG/5 ML UDC PO PRN (20:54)
[2020-08-26] MEDS: oxyCODONE HCL IR 5 MG TAB (IMMEDIATE RELEASE) PO PRN ×4 (01:22→22:33)
[2020-08-26] MEDS: AZTREONAM 2,000 MG in DEXTROSE 5% 100 ML IV SCH ×2 (04:55→15:15)
[2020-08-26] MEDS: MoRPHine SULFATE 2 MG/ML CARP IV PRN ×3 (05:01→19:26)
[2020-08-26] MEDS: HEPARIN 100 UNIT/ML 5ML FLUSH FLUSH PRN ×4 (05:43→19:26)
[2020-08-26 06:10] LABS: Hematocrit (blood only) 35.7 % (37-47); Hemoglobin 12.4 g/dL (12.0-16.0); Mean Corpuscular Hemoglobin 31.7 pg (25-34); Mean Corpuscular Hgb Conc 34.7 g/dL (32-36); Mean Corpuscular Volume 91.3 fL (80-100); Mean Platelet Volume 10.1 fL (7.4-10.4); Platelet Count 112 K/uL (130-400); RDW Coefficient of Variation 14.1 % (11.5-14.5); RDW Standard Deviation 47.1 fL (36.4-46.3); Red Blood Count 3.91 M/uL (4.2-5.4); White Blood Count 4.37 K/uL (4.8-10.8)
[2020-08-26 06:42] LABS: BUN Creatinine Ratio 17.1 (10-20); Blood Urea Nitrogen 5 mg/dl (7-18); Calcium 8.8 mg/dl (8.5-10.1); Carbon Dioxide 28 mmol/L (21-32); Chloride 108 mmol/L (98-107); Creatinine Clr Calc Pharmacy 241.8 ml/min; Est GFR (African American) > 150.0; Est GFR (Non-African American) > 150.0; Glucose 91 mg/dl (70-99); Magnesium 1.8 mg/dl (1.8-2.4); Potassium 3.6 mmol/L (3.5-5.1); Sodium 141 mmol/L (136-145)
[2020-08-26] MEDS: DANTROLENE SODIUM 25 MG CAP PO SCH ×3 (08:30→21:06)
[2020-08-26] MEDS: METHENAMINE HIPPURATE 1 GM TAB PO SCH ×2 (08:30→21:09)
[2020-08-26] MEDS: SODIUM CHLORIDE 1 GM TABLET PO SCH ×3 (08:31→21:07)
[2020-08-26] MEDS: DULoxetine HCL 60 MG CAP PO SCH ×2 (08:31→15:16)
[2020-08-26] MEDS: DOCUSATE SODIUM 100 MG CAP PO SCH ×2 (08:31→21:08)
[2020-08-26] MEDS: busPIRone 5 MG TAB PO SCH ×2 (08:31→21:08)
[2020-08-26] MEDS: RIVAROXABAN 20 MG TAB PO SCH (08:31)
[2020-08-26] MEDS: BACLOFEN 20 MG TAB PO SCH ×4 (08:32→21:09)
[2020-08-26] MEDS: ASCORBIC ACID 500 MG TAB PO SCH ×2 (08:32→21:10)
[2020-08-26] MEDS: BACLOFEN 10 MG TAB PO SCH ×4 (08:32→21:09)
[2020-08-26] MEDS: GABAPENTIN 300 MG CAP PO SCH ×4 (08:32→21:09)
[2020-08-26] MEDS: GABAPENTIN 600 MG TAB PO SCH ×4 (08:33→21:07)
[2020-08-26] MEDS: diphenhydrAMINE HCl 12.5 MG/5 ML UDC PO PRN (11:21)
[2020-08-26] MEDS: DAPTOmycin 250 MG in SYRINGE 0 ML IV SCH (15:15)
[2020-08-26] MEDS ORDERED: CONSULT PHARMACY ONE (17:54)
--- NOTE | 2020-08-26 17:58 | Hospitalist Progress Note ---
Date of Service August 26, 2020 Assessment & Plan (1) Displacement of Bonilla catheter: (2) Cellulitis of labia: (3) Abdominal pain: (4) Neurogenic bladder: Labial/Perineal cellulitis Neurogenic bladder H/O recurrent UTI--and chronic Bonilla -CT ABD:Moderate edema and thickening of the labia/perineal soft tissues. This may represent an infectious or inflammatory process. A 3 cm left sacral decubitus ulcer. Progressive erosive change and sclerosis at the left ischial tuberosity. This favors a chronic osteomyelitis. Multiple bladder calculi. The bladder is decompressed by Bonilla catheter. 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: Left Decubitus ulcer Chronic osteomyelitis Continue antibiotics as above Wound care consulted (7) Nausea & vomiting: Antiemetics as needed (8) Depression: (9) Anxiety: Continue home medications (10) History of DVT (deep vein thrombosis): (11) DVT prophylaxis: On Xarelto CODE STATUS Full code Admission and Anticipated Discharge Date Admission Date: August 24, 2020 Subjective Patient is seen and examined at bedside Continues to have labial swelling, pain Discussed with ID today Denies chest pain, dyspnea, dizziness, nausea, abdominal pain Offers no other complaints Review of Systems Review of Systems: All systems reviewed & are unremarkable except as noted in HPI & below Physical Exam Physical Exam: Physical Exam: Vitals signs as noted above General Appearance:Thin, frail, chronic ill appearing, no apparent distress Head: normocephalic, Atraumatic Eyes: normal inspection, EOMI Neck: supple, Trachea midline Respiratory/Chest: Normal breath sounds, CTA, No accessory muscle use Cardiovascular: S1, S2, No murmur Chest:+ Chemo port Abdomen/GI:Soft, Non tender, Bowel sounds present : Labial swelling, erythematous Extremities/Musculoskelatal:normal inspection, no edema Neurologic/Psych:AAOX3, +Quadriplegia, LE > UE Skin: normal color, warm, +decubitus ulcer Results & Data Results & Data ([facility]) Vital Signs (Past 12 Hours) Vital Signs Temp Pulse Pulse Resp BP Pulse Ox 08/26/20 15:52 37.0 C 80 18 101/65 95 08/26/20 07:49 37 C 80 16 98/58 L 95 Laboratory Results Short CBC 08/26/20 Range/Units 05:43 WBC 4.37 L (4.8-10.8) K/uL Hgb 12.4 (12.0-16.0) g/dL Hct 35.7 L (37-47) % Plt Count 112 L (130-400) K/uL BMP 08/26/20 05:43 Sodium 141 Potassium 3.6 Chloride 108 H Carbon Dioxide 28 BUN 5 L Creatinine 0.32 L Glucose 91 Calcium 8.8 (1) Displacement of Bonilla catheter Encounter type: initial encounter Qualified Code(s): T83.021A - Displacement of indwelling urethral catheter, initial encounter (2) Abdominal pain Abdominal location: generalized Qualified Code(s): R10.84 - Generalized abdominal pain
[2020-08-26] MEDS: ONDANSETRON INJ 2 MG/ML 2 ML VIAL IV PRN (18:17)
[2020-08-26] MEDS: SOD PHOSPHATE/SOD BIPHOSPHATE ENEMA 132 ML BTL PR PRN (18:24)
[2020-08-26] MEDS: lamoTRIgine 25 MG TAB PO SCH (21:07)
[2020-08-26] MEDS: MIRTAZAPINE TAB 15 MG TAB PO SCH (21:08)
--- NOTE | 2020-08-27 00:37 | OB/GYN Consultation ---
Date of Consultation August 27, 2020 Assessment & Plan (1) Labial swellin yo G0 female ( not sexually active) with acute right sided labia swelling, mild erythema but does not appear to be abscess or infection Resembling labia cysts with irregular borders. I would recommend to continue with current AB regimen, ice packs to swollen side She wanted me to come back later for pap smear I will recheck on this If swelling will not improve, may consider to excise cyst/ cysts All questions were answered (2) Labial cyst: History of Present Illness Attending Physician: Adam Young MD History of Present Illness Patient is a 29 yo G0 female with unfortunately quadriplagia and chronic urinary catheter and decubitus ulces on buttocs, + for S. Aureus She noted a swelling on right labia 2 days ago and presented to [facility]. She has admitted for above and IV AB was started. She is on Daptomycin now. Swelling was not there before per her and mother who is her caregiver. No vaginal d/c/ itching/ or smell Her periods have been every 4-8 weeks, lasting for 3-4 days with normal flow She has not been sexually active for the last 9 years. She has had multiple partners in the past ( 20 per her) Has not had pap smear or pelvic exam as far as she remembers. I offered her today but declined spekulum exam. Allergies Allergy/AdvReac Type Severity Reaction Status Date / Time cefepime Allergy Severe ANAPHYLAXIS Verified 08/24/20 15:05 imipenem Allergy Severe SEIZURE Verified 08/24/20 15:05 fentanyl Allergy Intermediate ITCHY AND Verified 08/24/20 15:05 RASH Penicillins Allergy Intermediate RASH PER Verified 08/24/20 15:05 MOTHER vancomycin Allergy Intermediate RASH Verified 08/24/20 15:05 levofloxacin Allergy Mild rash Verified 08/24/20 15:05 Sulfa (Sulfonamide Allergy Unknown Rash Verified 08/24/20 15:05 Antibiotics) Home Medications Medication Instructions Recorded Confirmed Type Xarelto 20 mg PO QAM 03/07/18 08/24/20 History ascorbic acid (vitamin C) 1 g PO Q12 03/07/18 08/24/20 History buspirone 10 mg PO BID 03/07/18 08/24/20 History dantrolene 100 mg PO TID 03/07/18 08/24/20 History docusate sodium 100 mg PO BID 03/07/18 08/24/20 History fluticasone propionate 2 spray INTRANASAL QAM PRN 03/07/18 08/24/20 History lorazepam 0.5 mg PO Q8 PRN 03/07/18 08/24/20 History methenamine hippurate [Hiprex] 1 g PO BID 03/07/18 08/24/20 History mirtazapine 7.5 mg PO HS 03/07/18 08/24/20 History zolpidem 5 mg PO HS PRN 03/07/18 08/24/20 History nystatin 1 applic TOPICAL BID PRN 03/18/18 08/24/20 History guaifenesin [Mucinex] 600 mg PO Q12H 04/06/18 08/24/20 History baclofen 20 mg PO QID 12/28/18 08/24/20 History duloxetine 60 mg capsule,delayed 60 mg PO BID cap 02/02/19 08/24/20 History release gabapentin 600 mg tablet 600 mg PO QID tab 02/02/19 08/24/20 History oxycodone-acetaminophen 7.5 mg-325 1 tab PO Q6H PRN 06/15/19 08/24/20 History mg tablet melatonin 3 mg PO HS PRN 08/13/19 08/24/20 History baclofen 10 mg PO QID 09/25/19 08/24/20 History docusate sodium [Enemeez] 283 mg [place] HS 09/25/19 08/24/20 History gabapentin 300 mg PO QID 09/25/19 08/24/20 History cyclobenzaprine 5 mg tablet 5 mg PO TID PRN 11/16/19 08/24/20 History doxycycline hyclate 100 mg tablet 100 mg PO bid #28 tab 08/19/20 08/24/20 Rx citric fd-yebzhfbdijo-omy carb 30 ml IRRIGATION 3XWK 08/24/20 08/24/20 History [Renacidin] lamotrigine 50 mg PO HS 08/24/20 08/24/20 History oxybutynin chloride 5 mg PO Q6H PRN 08/24/20 08/24/20 History sodium chloride 2 g PO TID 08/24/20 08/24/20 History Patient History Medical History Anxiety Autonomic dysreflexia Depression Environmental allergies History of DVT (deep vein thrombosis) "UPPER EXTREMITY"- ON XARELTO (NO FURTHER DETAILS) History of seizure 2013 - ? D/T MEDS Hx of pneumothorax hx with chest tube. Treated at [facility] Indwelling Bonilla catheter present CHANGED EVERY 2 WEEKS Neurogenic bladder Port-A-Cath in place 06/15/18= A-PORT REPOSITION= MAC SEDATION AT [facility]. 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 07/2019. 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 Required: No Beliefs That Will Affect Care: None marital status: Single Current Living Situation: Family Current Living Situation Comment: Lives with mom, dad and brother current occupational status: disabled How many Children do You have: 0 Other Information That Helps Us Care for You: No Feels Safe at Home: Yes Safety Concerns: Feels Safe At This Time Childhood Exposure to Second-Hand Smoke: No Assistive Devices: Glasses Review of Systems Review of Systems: All systems reviewed & are unremarkable except as noted in HPI & below Physical Exam Constitutional: WD/WN, vitals as above well nourished NAD Gastrointestinal (Abdomen): normal bowel sounds, soft, nontender, no hepatosplenomegaly Genitourinary: normal external appearance (right labia is enlarged with multipele irregular borders, cysts? or inflam) Speculum/Bimanual Exam: normal bimanual exam (cervix and uterus were felt to be normal, adnexa SPARE PARTS CLERK) Declined spekulum exam. Results & Data ([facility]) Vital Signs (Past 12 Hours) Vital Signs Temp Pulse Pulse Resp BP Pulse Ox 08/26/20 22:55 36.7 C 69 18 100/64 97 08/26/20 15:52 37.0 C 80 18 101/65 95
[2020-08-27] MEDS: HEPARIN 100 UNIT/ML 5ML FLUSH FLUSH PRN ×5 (01:29→21:52)
[2020-08-27] MEDS: MoRPHine SULFATE 2 MG/ML CARP IV PRN ×4 (01:30→21:50)
[2020-08-27] MEDS: AZTREONAM 2,000 MG in DEXTROSE 5% 100 ML IV SCH ×2 (03:59→16:31)
[2020-08-27 06:13] LABS: Hematocrit (blood only) 39.3 % (37-47); Hemoglobin 13.2 g/dL (12.0-16.0); Mean Corpuscular Hemoglobin 30.8 pg (25-34); Mean Corpuscular Hgb Conc 33.6 g/dL (32-36); Mean Corpuscular Volume 91.6 fL (80-100); Mean Platelet Volume 10.1 fL (7.4-10.4); Platelet Count 117 K/uL (130-400); RDW Coefficient of Variation 14.2 % (11.5-14.5); RDW Standard Deviation 47.8 fL (36.4-46.3); Red Blood Count 4.29 M/uL (4.2-5.4); White Blood Count 4.17 K/uL (4.8-10.8)
[2020-08-27 06:42] LABS: Blood Urea Nitrogen 9 mg/dl (7-18); Carbon Dioxide 30 mmol/L (21-32); Chloride 109 mmol/L (98-107); Creatinine Clr Calc Pharmacy 309.5 ml/min; Est GFR (African American) > 150.0; Est GFR (Non-African American) > 150.0; Glucose 99 mg/dl (70-99); Potassium 4.1 mmol/L (3.5-5.1); Sodium 142 mmol/L (136-145)
[2020-08-27] MEDS: busPIRone 5 MG TAB PO SCH ×2 (08:46→21:41)
[2020-08-27] MEDS: DANTROLENE SODIUM 25 MG CAP PO SCH ×3 (08:46→21:39)
[2020-08-27] MEDS: DULoxetine HCL 60 MG CAP PO SCH ×2 (08:46→14:58)
[2020-08-27] MEDS: GABAPENTIN 300 MG CAP PO SCH ×4 (08:47→21:39)
[2020-08-27] MEDS: RIVAROXABAN 20 MG TAB PO SCH (08:47)
[2020-08-27] MEDS: SODIUM CHLORIDE 1 GM TABLET PO SCH ×3 (08:47→21:41)
[2020-08-27] MEDS: BACLOFEN 10 MG TAB PO SCH ×4 (08:48→21:40)
[2020-08-27] MEDS: METHENAMINE HIPPURATE 1 GM TAB PO SCH ×2 (08:48→21:38)
[2020-08-27] MEDS: DOCUSATE SODIUM 100 MG CAP PO SCH ×2 (08:48→21:40)
[2020-08-27] MEDS: BACLOFEN 20 MG TAB PO SCH ×4 (08:48→21:40)
[2020-08-27] MEDS: GABAPENTIN 600 MG TAB PO SCH ×4 (08:49→21:39)
[2020-08-27] MEDS: ASCORBIC ACID 500 MG TAB PO SCH ×2 (08:49→21:41)
[2020-08-27] MEDS: oxyCODONE HCL IR 5 MG TAB (IMMEDIATE RELEASE) PO PRN ×2 (11:03→19:41)
[2020-08-27] MEDS: DAPTOmycin 250 MG in SYRINGE 0 ML IV SCH (16:31)
--- NOTE | 2020-08-27 19:31 | Hospitalist Progress Note ---
Date of Service August 27, 2020 Assessment & Plan (1) Displacement of Bonilla catheter: (2) Cellulitis of labia: (3) Abdominal pain: (4) Neurogenic bladder: Labial/Perineal cellulitis Possible Labial Cyst Neurogenic bladder H/O recurrent UTI--and chronic Bonilla -CT ABD:Moderate edema and thickening of the labia/perineal soft tissues. This may represent an infectious or inflammatory process. A 3 cm left sacral decubitus ulcer. Progressive erosive change and sclerosis at the left ischial tuberosity. This favors a chronic osteomyelitis. Multiple bladder calculi. The bladder is decompressed by Bonilla catheter. -Replaced dislodged Bonilla -Blood culture negative to date -Urine culture; likely contaminated sample -Empirically started on daptomycin, Azactam>>> transition to vancomycin, Azactam -Appreciate urology input -Appreciate ID, LANDSCAPE CONTRACTOR Input -If no improvement with IV antibiotics, patient would likely need excision of the labial cyst -Need to hold Xarelto if plan for procedure. 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: Left Decubitus ulcer Chronic osteomyelitis Continue antibiotics as above Continue wound care Wound care consulted (7) Nausea & vomiting: Antiemetics as needed (8) Depression: (9) Anxiety: Continue home medications (10) History of DVT (deep vein thrombosis): (11) DVT prophylaxis: On Xarelto CODE STATUS Full code Admission and Anticipated Discharge Date Admission Date: August 24, 2020 Subjective Patient is seen and examined at bedside No significant change from yesterday Continues to complain of labial swelling, pain Denies chest pain, dyspnea, dizziness, nausea, abdominal pain Review of Systems Review of Systems: All systems reviewed & are unremarkable except as noted in HPI & below Physical Exam Physical Exam: Physical Exam: Vitals signs as noted above General Appearance:Thin, frail, chronic ill appearing, no apparent distress Head: normocephalic, Atraumatic Eyes: normal inspection, EOMI Neck: supple, Trachea midline Respiratory/Chest: Normal breath sounds, CTA, No accessory muscle use Cardiovascular: S1, S2, No murmur Chest:+ Chemo port Abdomen/GI:Soft, Non tender, Bowel sounds present : Labial swelling, erythematous Extremities/Musculoskelatal:normal inspection, no edema Neurologic/Psych:AAOX3, +Quadriplegia, LE > UE Skin: normal color, warm, +decubitus ulcer Results & Data Results & Data ([facility]) Vital Signs (Past 12 Hours) Vital Signs Temp Pulse Resp BP Pulse Ox 08/27/20 19:00 36.5 C 85 16 99/62 L 96 08/27/20 14:28 36.4 C L 70 16 97/59 L 97 Laboratory Results Short CBC 08/27/20 Range/Units 05:50 WBC 4.17 L (4.8-10.8) K/uL Hgb 13.2 (12.0-16.0) g/dL Hct 39.3 (37-47) % Plt Count 117 L (130-400) K/uL BMP 08/27/20 05:50 Sodium 142 Potassium 4.1 Chloride 109 H Carbon Dioxide 30 BUN 9 Creatinine 0.25 L Glucose 99 Calcium 9.0 (1) Displacement of Bonilla catheter Encounter type: initial encounter Qualified Code(s): T83.021A - Displacement of indwelling urethral catheter, initial encounter (2) Abdominal pain Abdominal location: generalized Qualified Code(s): R10.84 - Generalized abdominal pain
[2020-08-27] MEDS: lamoTRIgine 25 MG TAB PO SCH (21:38)
[2020-08-27] MEDS: MIRTAZAPINE TAB 15 MG TAB PO SCH (21:40)
[2020-08-27] MEDS: SOD PHOSPHATE/SOD BIPHOSPHATE ENEMA 132 ML BTL PR PRN (21:42)
[2020-08-28] MEDS: AZTREONAM 2,000 MG in DEXTROSE 5% 100 ML IV SCH ×2 (04:51→16:14)
[2020-08-28] MEDS: oxyCODONE HCL IR 5 MG TAB (IMMEDIATE RELEASE) PO PRN ×3 (05:00→19:57)
[2020-08-28] MEDS: HEPARIN 100 UNIT/ML 5ML FLUSH FLUSH PRN ×5 (05:32→22:18)
[2020-08-28 06:25] LABS: Hematocrit (blood only) 37.8 % (37-47); Hemoglobin 12.3 g/dL (12.0-16.0); Mean Corpuscular Hemoglobin 29.9 pg (25-34); Mean Corpuscular Hgb Conc 32.5 g/dL (32-36); Mean Platelet Volume 10.3 fL (7.4-10.4); Platelet Count 108 K/uL (130-400); RDW Coefficient of Variation 14.2 % (11.5-14.5); Red Blood Count 4.11 M/uL (4.2-5.4); White Blood Count 4.06 K/uL (4.8-10.8)
[2020-08-28 06:59] LABS: Blood Urea Nitrogen 8 mg/dl (7-18); Calcium 8.9 mg/dl (8.5-10.1); Carbon Dioxide 30 mmol/L (21-32); Chloride 106 mmol/L (98-107); Creatinine Clr Calc Pharmacy 286.6 ml/min; Est GFR (African American) > 150.0; Est GFR (Non-African American) > 150.0; Glucose 93 mg/dl (70-99); Magnesium 1.7 mg/dl (1.8-2.4); Potassium 3.7 mmol/L (3.5-5.1); Sodium 139 mmol/L (136-145)
[2020-08-28] MEDS: MoRPHine SULFATE 2 MG/ML CARP IV PRN ×3 (07:35→22:17)
[2020-08-28] MEDS: diphenhydrAMINE HCl 12.5 MG/5 ML UDC PO PRN (07:35)
[2020-08-28] MEDS: ASCORBIC ACID 500 MG TAB PO SCH ×2 (09:14→21:00)
[2020-08-28] MEDS: BACLOFEN 20 MG TAB PO SCH ×4 (09:15→21:00)
[2020-08-28] MEDS: RIVAROXABAN 20 MG TAB PO SCH (09:15)
[2020-08-28] MEDS: GABAPENTIN 300 MG CAP PO SCH ×4 (09:15→20:59)
[2020-08-28] MEDS: METHENAMINE HIPPURATE 1 GM TAB PO SCH ×2 (09:15→20:59)
[2020-08-28] MEDS: GABAPENTIN 600 MG TAB PO SCH ×4 (09:15→21:00)
[2020-08-28] MEDS: busPIRone 5 MG TAB PO SCH ×2 (09:16→20:59)
[2020-08-28] MEDS: DULoxetine HCL 60 MG CAP PO SCH ×2 (09:16→16:13)
[2020-08-28] MEDS: DANTROLENE SODIUM 25 MG CAP PO SCH ×3 (09:16→21:00)
[2020-08-28] MEDS: DOCUSATE SODIUM 100 MG CAP PO SCH ×2 (09:16→20:59)
[2020-08-28] MEDS: BACLOFEN 10 MG TAB PO SCH ×4 (09:16→20:59)
[2020-08-28] MEDS: SODIUM CHLORIDE 1 GM TABLET PO SCH ×3 (09:17→20:59)
[2020-08-28] MEDS: DAPTOmycin 250 MG in SYRINGE 0 ML IV SCH (16:13)
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
[2020-08-28] MEDS: MIRTAZAPINE TAB 15 MG TAB PO SCH (20:58)
[2020-08-28] MEDS: lamoTRIgine 25 MG TAB PO SCH (21:00)
[2020-08-28] MEDS: SOD PHOSPHATE/SOD BIPHOSPHATE ENEMA 132 ML BTL PR PRN (21:08)
--- NOTE | 2020-08-28 23:24 | Obstetrical Progress Note ---
Date of Service August 28, 2020 Assessment & Plan Admission and Anticipated Discharge Date Admission Date: August 24, 2020 Subjective Patient is reevaluated She c/o labial discomfort ad asking me to discharge her. Rt labial swelling much better No erythema It is irregular in shape suggesting unilateral hypertrophy and small nodule/ cystic lesion within deep tissue of rt labia Obtained cultures from vagina, unable to insert spekulum for pap smear, brush was aided towards the cervix and pap smear was collected. Recommend to f/u in [facility] I will send my office a message to arrange her f/u visit. Possible biopsy/ excision of lesion if will not subside completely All questions were answered Results & Data ([facility]) Vital Signs (Past 12 Hours) Vital Signs Temp Pulse Resp BP Pulse Ox 08/28/20 16:16 36.6 C 78 16 115/71 95
[2020-08-29] MEDS: MoRPHine SULFATE 2 MG/ML CARP IV PRN ×2 (03:25→10:36)
[2020-08-29] MEDS: AZTREONAM 2,000 MG in DEXTROSE 5% 100 ML IV SCH (03:26)
[2020-08-29] MEDS: HEPARIN 100 UNIT/ML 5ML FLUSH FLUSH PRN (04:33)
[2020-08-29] MEDS: oxyCODONE HCL IR 5 MG TAB (IMMEDIATE RELEASE) PO PRN (08:45)
[2020-08-29] MEDS: ASCORBIC ACID 500 MG TAB PO SCH (08:47)
[2020-08-29] MEDS: BACLOFEN 20 MG TAB PO SCH ×2 (08:48→13:42)
[2020-08-29] MEDS: BACLOFEN 10 MG TAB PO SCH ×2 (08:48→13:43)
[2020-08-29] MEDS: GABAPENTIN 300 MG CAP PO SCH ×2 (08:48→13:42)
[2020-08-29] MEDS: DOCUSATE SODIUM 100 MG CAP PO SCH (08:49)
[2020-08-29] MEDS: GABAPENTIN 600 MG TAB PO SCH ×2 (08:49→13:42)
[2020-08-29] MEDS: METHENAMINE HIPPURATE 1 GM TAB PO SCH (08:49)
[2020-08-29] MEDS: DULoxetine HCL 60 MG CAP PO SCH (08:50)
[2020-08-29] MEDS: SODIUM CHLORIDE 1 GM TABLET PO SCH ×2 (08:50→13:43)
[2020-08-29] MEDS: busPIRone 5 MG TAB PO SCH (08:50)
[2020-08-29] MEDS: DANTROLENE SODIUM 25 MG CAP PO SCH ×2 (08:51→13:42)
[2020-08-29] MEDS ORDERED: CEROVITE ADV FORMULA TAB PO SCH (09:00)
[2020-08-29] MEDS ORDERED: RIVAROXABAN 20 MG TAB PO ONE (10:30)
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
[2020-08-29] MEDS ORDERED: CLINDAMYCIN HCL 150 MG CAP PO SCH (13:00)
[2020-08-30 15:20] LABS: Chlamydia Trach RNA NOT DETECTED (NOT DETECTED); GC (Neis gonorrhoeae) RNA NOT DETECTED (NOT DETECTED); Trichomonas vaginalis RNA NOT DETECTED (NOT DETECTED)
== END 2020-08-29 15:10 | disposition home health service (06) | DRG 698 ==
LOC: ED 11:09 → SUATTDRO 16:46 → 3N 16:46

== ENCOUNTER 2020-09-29 16:52 | Inpatient (IN) ==
[2020-09-29 17:39] LABS: Appearance Urine Turbid (Clear); Bacteria Urine Automated 3+ (Negative); Bilirubin Urine Negative (Negative); Blood Urine Negative (Negative); Color Urine Dark Yellow; Epithelial Cell Urine Auto >30 /lpf (0-5); Glucose Urine UA Negative (Negative); Ketones Urine 3+ (Negative); Leukocyte Esterase Urine 2+ (Negative); Nitrite Urine Positive (Negative); RBC Urine Automated 0-4 /hpf (0-4); Specific Gravity Urine 1.021 (1.000-1.030); Urobilinogen Urine Negative (Negative); WBC Urine Automated >30 /hpf (0-5)
[2020-09-29 17:44] LABS: Protein Urine 1+ (Negative)
[2020-09-29 17:53] LABS: Amorphous Sediment Urine Present (None Prsent); Triple Phosphate Crystal Urine Present (None Prsent)
[2020-09-29 17:53] LABS: Hematocrit (blood only) 35.7 % (37-47); Hemoglobin 11.9 g/dL (12.0-16.0); Mean Corpuscular Hemoglobin 30.5 pg (25-34); Mean Corpuscular Hgb Conc 33.3 g/dL (32-36); Mean Corpuscular Volume 91.5 fL (80-100); RDW Coefficient of Variation 13.7 % (11.5-14.5); RDW Standard Deviation 45.8 fL (36.4-46.3); White Blood Count 7.02 K/uL (4.8-10.8)
[2020-09-29] MEDS ORDERED: ACETAMINOPHEN 1000 MG/100 ML IV IV STA (18:03)
[2020-09-29 18:14] LABS: Alanine Aminotransferase 25 U/L (12-78); Albumin Level 3.1 gm/dl (3.4-5.0); Aspartate Aminotransferase 17 U/L (15-37); BUN Creatinine Ratio 17.5 (10-20); Blood Urea Nitrogen 7 mg/dl (7-18); Calcium 8.3 mg/dl (8.5-10.1); Carbon Dioxide 24 mmol/L (21-32); Chloride 105 mmol/L (98-107); Est GFR (African American) > 150.0; Est GFR (Non-African American) 145.2; Glucose 160 mg/dl (70-99); Potassium 3.4 mmol/L (3.5-5.1); Sodium 138 mmol/L (136-145)
[2020-09-29] MEDS ORDERED: AZTREONAM 1,000 MG in DEXTROSE 5% 100 ML IV STA (18:14)
[2020-09-29] MEDS ORDERED: DAPTOmycin 350 MG in SYRINGE 0 ML IV ONE (18:14)
[2020-09-29 18:17] LABS: Mean Platelet Volume 9.9 fL (7.4-10.4); Platelet Count 77 K/uL (130-400)
[2020-09-29 18:18] LABS: Albumin Globulin Ratio 1.1 (0.9-2); Alkaline Phosphatase 76 U/L (45-117); Basophils # (auto) 0.01 K/uL (0-0.2); Basophils % (auto) 0.1 %; Bilirubin,Total 0.3 mg/dl (0.2-1); Eosinophils # (auto) 0.06 K/uL (0-0.5); Eosinophils % (auto) 0.9 %; Globulin 2.9 gm/dl (2.5-4.0); Immature Granulocytes # (auto) 0.02 K/uL (0.00-0.02); Immature Granulocytes % (auto) 0.3 %; Lymphocytes # (auto) 0.84 K/uL (1.2-3.4); Monocytes % (auto) 7.1 %; Neutrophils # (auto) 5.59 K/uL (1.4-6.5); Neutrophils % (auto) 79.6 %; Platelet Estimate Decreased (Normal)
--- NOTE | 2020-09-29 18:33 | XRay Report ---
XR chest 1V portable HISTORY: 29 years-old Female Fever acute fever COMPARISON: Chest radiograph 09/17/2020 TECHNIQUE: Portable AP view of the chest FINDINGS: Cardiomediastinal and hilar silhouettes are unchanged. No pneumothorax, pleural effusion, airspace co nsolidation or overt pulmonary edema. Right IJ [id number] catheter distal tip terminates in the ex pected location of the proximal to mid SVC. Unchanged mild linear bibasilar scarring versus atelectas is. Partially imaged cervical thoracic spinal fusion hardware. IMPRESSION: No acute process. ACT 112: Negative or not required by law. The above report was generated using voice recognition software. It may contain grammatical, syntax o r spelling errors. Electronically signed by: Cameron Dickson M.D. 09/29/2020 6:32 PM
[2020-09-29 19:27] LABS: Influenza A virus by PCR Negative (Neg); Influenza B virus by PCR Negative (Neg); RSV by PCR Negative (Neg); SARS CoV2 RNA(COVID-19) InHosp NEGATIVE (Negative)
[2020-09-29] MEDS ORDERED: ONDANSETRON INJ 2 MG/ML 2 ML VIAL IV STA (19:43)
[2020-09-29] MEDS ORDERED: oxyCODONE/APAP 7.5/325MG TAB PO STA (19:44)
[2020-09-29] MEDS ORDERED: oxyCODONE/ACETAMINOPHEN 5mg/325mg TAB PO STA (19:53)
[2020-09-29] MEDS ORDERED: MELATONIN 3 MG TAB PO PRN (21:31)
[2020-09-29] MEDS ORDERED: ACETAMINOPHEN 325 MG TAB PO PRN (21:31)
[2020-09-29] MEDS ORDERED: BACLOFEN 10 MG TAB PO SCH ×2 (21:31)
[2020-09-29] MEDS ORDERED: LORazepam 0.5 MG TAB PO PRN (21:31)
[2020-09-29] MEDS ORDERED: FLUTICASONE PROPIONATE NA SPR 16 GM BTL PRN (21:31)
[2020-09-29] MEDS ORDERED: ONDANSETRON INJ 2 MG/ML 2 ML VIAL IV PRN (21:31)
[2020-09-29] MEDS ORDERED: NITROGLYCERIN SL 0.4 MG/TAB TAB SL PRN (21:31)
[2020-09-29] MEDS ORDERED: CYCLOBENZAPRINE HCL 5 MG TAB PO PRN (21:31)
[2020-09-29] MEDS ORDERED: BACLOFEN 20 MG TAB PO SCH ×2 (21:31)
[2020-09-29] MEDS ORDERED: NYSTATIN POWDER 15GM BTL EXT PRN (21:31)
[2020-09-29] MEDS ORDERED: POTASSIUM CHLORIDE 20 MEQ/15 ML UDC PO STA (21:31)
[2020-09-29] MEDS ORDERED: OXYBUTYNIN CHLORIDE 5 MG TAB PO PRN (21:31)
[2020-09-29] MEDS ORDERED: ZOLPIDEM TARTRATE 5 MG TAB PO PRN (21:31)
[2020-09-29] MEDS ORDERED: AZTREONAM CONSULT ACTIVE PRN (21:44)
[2020-09-29] MEDS: SOD PHOSPHATE/SOD BIPHOSPHATE ENEMA 132 ML BTL PR PRN (22:08)
[2020-09-29] MEDS: HYDROmorphone INJ 0.5 MG/0.5 ML SYR IV PRN (22:27)
[2020-09-29] MEDS: ASCORBIC ACID 500 MG TAB PO SCH (22:34)
[2020-09-29] MEDS: DANTROLENE SODIUM 25 MG CAP PO SCH (22:35)
[2020-09-29] MEDS: SODIUM CHLORIDE 1 GM TABLET PO SCH (22:35)
[2020-09-29] MEDS: busPIRone 5 MG TAB PO SCH (22:36)
[2020-09-29] MEDS: GABAPENTIN 600 MG TAB PO SCH (22:36)
[2020-09-29] MEDS: DULoxetine HCL 60 MG CAP PO SCH (22:36)
[2020-09-29] MEDS: guaiFENesin 600 MG TABCR PO SCH (22:37)
[2020-09-29] MEDS: DOCUSATE SODIUM 100 MG CAP PO SCH (22:37)
[2020-09-29] MEDS: lamoTRIgine 25 MG TAB PO SCH (22:37)
[2020-09-29] MEDS: MIRTAZAPINE TAB 15 MG TAB PO SCH (22:38)
[2020-09-29] MEDS: GABAPENTIN 300 MG CAP PO SCH (22:38)
[2020-09-29] MEDS: METHENAMINE HIPPURATE 1 GM TAB PO SCH (22:39)
[2020-09-29] MEDS: SODIUM CHLORIDE 0.9% 1000ML 1,000 ML IV SCH (22:40)
[2020-09-29] MEDS: PATIENT'S HEIGHT AND/OR WEIGHT NEEDED SCH ×2 (23:11→23:12)
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
[2020-09-29] MEDS ORDERED: HEPARIN 100 UNIT/ML 5ML FLUSH FLUSH PRN (23:36)
--- NOTE | 2020-09-30 00:39 | Emergency Department Note ---
History of Present Illness General Chief complaint: Fever Stated complaint: [id number]-HEADACHE-PASSING OUT Time Seen by Provider: 09/29/20 18:02 History of Present Illness Provider complaint: Fever Onset (ago): day(s) 2 Location: lower extremity and left Maximum Pain Intensity: 7 Associated symptoms: + fever/chills and + rash; no chest pain, no cough, no nausea/vomiting and no shortness of breath 29-year-old paraplegic female presents emergency department with her mother for fever and rash over the left lower extremity. Mother reports that the patient start developing a rash over her left posterior thigh yesterday. She notes patient had a fever today so she brought the patient to the emergency department. No cough. No loss of taste or smell. No nausea vomiting or diarrhea. Home Medications Medication Instructions Recorded Confirmed Type Xarelto 20 mg PO QAM 03/07/18 09/29/20 History ascorbic acid (vitamin C) 1 g PO Q12 03/07/18 09/29/20 History buspirone 10 mg PO BID 03/07/18 09/29/20 History dantrolene 100 mg PO TID 03/07/18 09/29/20 History docusate sodium 100 mg PO BID 03/07/18 09/29/20 History fluticasone propionate 2 spray INTRANASAL QAM PRN 03/07/18 09/29/20 History lorazepam 0.5 mg PO Q8 PRN 03/07/18 09/29/20 History methenamine hippurate [Hiprex] 1 g PO BID 03/07/18 09/29/20 History mirtazapine 7.5 mg PO HS 03/07/18 09/29/20 History zolpidem 5 mg PO HS PRN 03/07/18 09/29/20 History nystatin 1 applic TOPICAL BID PRN 03/18/18 09/29/20 History guaifenesin [Mucinex] 600 mg PO Q12H 04/06/18 09/29/20 History baclofen 20 mg PO QID 12/28/18 09/29/20 History duloxetine 60 mg capsule,delayed 60 mg PO BID cap 02/02/19 09/29/20 History release gabapentin 600 mg tablet 600 mg PO QID tab 02/02/19 09/29/20 History oxycodone-acetaminophen 7.5 mg-325 1 tab PO Q6H PRN 06/15/19 09/29/20 History mg tablet melatonin 3 mg PO HS PRN 08/13/19 09/29/20 History baclofen 10 mg PO QID 09/25/19 09/29/20 History docusate sodium [Enemeez] 283 mg LA HS 09/25/19 09/29/20 History gabapentin 300 mg PO QID 09/25/19 09/29/20 History cyclobenzaprine 5 mg tablet 5 mg PO TID PRN 11/16/19 09/29/20 History lamotrigine 50 mg PO HS 08/24/20 09/29/20 History oxybutynin chloride 5 mg PO Q6H PRN 08/24/20 09/29/20 History sodium chloride 2 g PO TID 08/24/20 09/29/20 History citric ac 1980.6 mg-glucono 59.4 30 ml IRRIGATION 3XWK #900 ml 09/24/20 09/29/20 Rx mg-mag carb 980.4 mg/30 mL irrig.soln potassium chloride 10 meq PO BID 09/29/20 09/29/20 History Allergies Allergy/AdvReac Type Severity Reaction Status Date / Time cefepime Allergy Severe ANAPHYLAXIS Verified 09/29/20 18:45 imipenem Allergy Severe SEIZURE Verified 09/29/20 18:45 fentanyl Allergy Intermediate ITCHY AND Verified 09/29/20 18:45 RASH Penicillins Allergy Intermediate RASH PER Verified 09/29/20 18:45 MOTHER Sulfa (Sulfonamide Allergy Intermediate Rash Verified 09/29/20 18:45 Antibiotics) vancomycin Allergy Intermediate RASH Verified 09/29/20 18:45 levofloxacin Allergy Mild rash Verified 09/29/20 18:45 Past Med/Surg History Medical History Anxiety Autonomic dysreflexia Bladder stones Chronic osteomyelitis Depression Environmental allergies History of DVT (deep vein thrombosis) "UPPER EXTREMITY"- ON XARELTO (NO FURTHER DETAILS) - cause unknown History of seizure 2013 - due to BP issue - none since > Hx of pneumothorax hx with chest tube. Treated at [facility]> 6 ys ago Indwelling Bonilla catheter present CHANGED EVERY 2 WEEKS Labial cyst resolving> DC'ed from [facility] 08/29/20 Neurogenic bladder Paraplegia Port-A-Cath in place 06/15/18= A-PORT REPOSITION= MAC SEDATION AT [facility]. 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 07/2019. Status post debridement LEFT ISCHIAL ULCER DEBRIDEMENT/PLACEMENT OF WOUND VAC= 03/14/18= LMA #4 Status post debridement (~07/2018) left ischial ulcer debridement with flap 07/2018: MAC#3, ETT#7.0, Grade 2 View Status post debridement buttock wound 10/16/1920 Grade 1 view with Mac 3 blade Family History Father Diabetes Brother Depression Other No family history of adverse response to anesthesia Social History Smoking Status: Never smoker Cigarettes Per Day: HX 1/2 PPD PER RECORDS; Second Hand Exposure: Yes; Hx Alcohol Use: No Hx Substance Use: No Preferred Language: Czech Communication Ability: Effective Visual Impairment: Limited Hearing Ability: Normal Notereader Required: No Beliefs That Will Affect Care: None marital status: Single Current Living Situation: Family Current Living Situation Comment: Lives with mom, dad and brother current occupational status: disabled How many Children do You have: 0 Other Information That Helps Us Care for You: No Feels Safe at Home: Yes Childhood Exposure to Second-Hand Smoke: No Assistive Devices: Glasses and Wheelchair Review of Systems A total of 10 systems reviewed and were otherwise negative Physical Exam Vital Signs Vital Signs - 24 hr 09/29/20 16:55 09/29/20 17:23 09/29/20 17:26 Temperature 38.0 C H Temperature Source Temporal Artery Scan Pulse Rate 83 83 87 Pulse Rate from SpO2 Sensor Respiratory Rate 20 21 23 Respiratory Effort / Characteristics Spontaneous Blood Pressure 78/49 L 89/55 L Blood Pressure Mean 58 66 Pulse Oximetry 100 96 Oxygen Delivery Method Room Air Sepsis Recent Fever Within 48 Hours No Sepsis New/Unexplained Change in Mental Status N/A Sepsis Action Taken by Nursing No Action Required 09/29/20 17:30 09/29/20 17:31 09/29/20 17:45 Temperature Temperature Source Pulse Rate 96 H 106 H 77 Pulse Rate from SpO2 Sensor Respiratory Rate 19 22 15 Respiratory Effort / Characteristics Blood Pressure 110/63 122/76 Blood Pressure Mean 78 91 Pulse Oximetry 95 95 Oxygen Delivery Method Sepsis Recent Fever Within 48 Hours Sepsis New/Unexplained Change in Mental Status Sepsis Action Taken by Nursing 09/29/20 18:00 09/29/20 18:15 09/29/20 18:30 Temperature Temperature Source Pulse Rate 86 86 91 H Pulse Rate from SpO2 Sensor 101 H Respiratory Rate 23 22 16 Respiratory Effort / Characteristics Blood Pressure 106/63 115/66 104/54 L Blood Pressure Mean 77 82 70 Pulse Oximetry 69 L 96 96 Oxygen Delivery Method Sepsis Recent Fever Within 48 Hours Sepsis New/Unexplained Change in Mental Status Sepsis Action Taken by Nursing 09/29/20 18:31 09/29/20 18:40 09/29/20 18:45 Temperature Temperature Source Pulse Rate 91 H 84 86 Pulse Rate from SpO2 Sensor 91 H 84 86 Respiratory Rate 16 22 23 Respiratory Effort / Characteristics Blood Pressure 97/52 L Blood Pressure Mean 67 Pulse Oximetry 96 96 96 Oxygen Delivery Method Sepsis Recent Fever Within 48 Hours Sepsis New/Unexplained Change in Mental Status Sepsis Action Taken by Nursing 09/29/20 18:50 09/29/20 19:00 09/29/20 19:01 Temperature Temperature Source Pulse Rate 81 84 80 Pulse Rate from SpO2 Sensor 82 84 83 Respiratory Rate 19 25 H 20 Respiratory Effort / Characteristics Blood Pressure 86/47 L Blood Pressure Mean 60 Pulse Oximetry 96 96 98 Oxygen Delivery Method Sepsis Recent Fever Within 48 Hours Sepsis New/Unexplained Change in Mental Status Sepsis Action Taken by Nursing 09/29/20 19:10 09/29/20 19:15 09/29/20 19:20 Temperature Temperature Source Pulse Rate 79 80 83 Pulse Rate from SpO2 Sensor 79 79 82 Respiratory Rate 23 18 19 Respiratory Effort / Characteristics Blood Pressure 80/41 L Blood Pressure Mean 54 Pulse Oximetry 97 98 98 Oxygen Delivery Method Sepsis Recent Fever Within 48 Hours Sepsis New/Unexplained Change in Mental Status Sepsis Action Taken by Nursing 09/29/20 19:30 09/29/20 19:31 09/29/20 19:40 Temperature Temperature Source Pulse Rate 75 80 78 Pulse Rate from SpO2 Sensor 76 80 80 Respiratory Rate 26 H 25 H 17 Respiratory Effort / Characteristics Blood Pressure 101/56 L Blood Pressure Mean 71 Pulse Oximetry 97 96 98 Oxygen Delivery Method Sepsis Recent Fever Within 48 Hours Sepsis New/Unexplained Change in Mental Status Sepsis Action Taken by Nursing 09/29/20 19:45 09/29/20 19:50 09/29/20 20:00 Temperature Temperature Source Pulse Rate 82 93 H 97 H Pulse Rate from SpO2 Sensor 82 93 H 93 H Respiratory Rate 16 15 20 Respiratory Effort / Characteristics Blood Pressure 96/58 L 103/65 Blood Pressure Mean 70 77 Pulse Oximetry 98 98 94 Oxygen Delivery Method Sepsis Recent Fever Within 48 Hours Sepsis New/Unexplained Change in Mental Status Sepsis Action Taken by Nursing 09/29/20 20:01 09/29/20 20:10 09/29/20 20:15 Temperature Temperature Source Pulse Rate 86 83 86 Pulse Rate from SpO2 Sensor 85 84 Respiratory Rate 15 14 18 Respiratory Effort / Characteristics Blood Pressure 106/52 L Blood Pressure Mean 70 Pulse Oximetry 98 97 Oxygen Delivery Method Sepsis Recent Fever Within 48 Hours Sepsis New/Unexplained Change in Mental Status Sepsis Action Taken by Nursing 09/29/20 20:20 Temperature Temperature Source Pulse Rate 84 Pulse Rate from SpO2 Sensor 84 Respiratory Rate 20 Respiratory Effort / Characteristics Blood Pressure Blood Pressure Mean Pulse Oximetry 98 Oxygen Delivery Method Sepsis Recent Fever Within 48 Hours Sepsis New/Unexplained Change in Mental Status Sepsis Action Taken by Nursing Physical Exam HENT: Exam performed. -Head: Normocephalic and atraumatic. -Right Ear: External ear normal. No mastoid tenderness. -Left Ear: External ear normal. No mastoid tenderness. -Mouth/Throat: The oropharynx is clear and moist. No trismus in the jaw. No dental abscesses or uvula swelling. No oropharyngeal exudate or tonsillar abscesses. EYES: Conjunctivae and EOM are normal. Pupils are equal, round, and reactive to light. Right eye exhibits no discharge. Left eye exhibits no discharge. No scleral icterus. NECK: Normal range of motion. Neck supple. No JVD present. No spinous process tenderness present. No carotid bruit present. No rigidity. No tracheal deviation and normal range of motion present. No Brudzinski's sign and no Kernig's sign noted. CV: Tachycardic rate, regular rhythm, normal heart sounds and intact distal pulses. There is no peripheral edema. Palpable radial pulses bue. PULM/CHEST: Effort normal and breath sounds normal. No respiratory distress. No stridor. She has no wheezes. She has no rales. -Chest Wall: She exhibits no tenderness. ABD: The abdomen is soft. : Bonilla in place. NEURO: Paraplegic SKIN: Left lower extremity: Erythema and warmth over the left lower extremity posterior thigh over the hamstring area. Consistent with appearance of [place] lulitis. No fluctuant areas. No vesicles. No papular rash. Nikolsky negative. Stage III sacral ulcer with no surrounding erythema. Course Course 1801: The patient was evaluated in room C5. A complete history and physical exam was performed Cardiac monitoring: An order was placed for continuous cardiac monitoring. The monitor shows a rate of 100 with sinus tachycardia rhythm Patient was found to be febrile tachycardic and hypotensive. Sepsis protocols were initiated. 1845: Blood pressure improved with fluid bolus. Patient will be started on daptomycin and aztreonam given her long history of significant allergies to antibiotics. EMR was reviewed and this combination has been used on the patient in the past without any adverse reactions. Is thought that this patient is septic from the cellulitis on her posterior left lower extremity and possibly due to her urine. Lactic acid 2.2. White blood cell count within normal limits. Administered Medications Ascorbic Acid (Ascorbic Acid 500 Mg Tab) 1,000 mg PO Q12 MIGUEL Stop: 10/29/20 21:30 Last Admin: 09/29/20 22:34 Dose: 1,000 mg Documented by: [id number] Buspirone HCl (Buspirone 5 Mg Tab) 10 mg PO BID MIGUEL Stop: 10/29/20 21:30 Last Admin: 09/29/20 22:36 Dose: 10 mg Documented by: [id number] Dantrolene Sodium (Dantrolene Sodium 25 Mg Cap) 100 mg PO TID MIGUEL Stop: 10/29/20 21:30 Last Admin: 09/29/20 22:35 Dose: 100 mg Documented by: [id number] Docusate Sodium (Docusate Sodium 100 Mg Cap) 100 mg PO BID MIGUEL Stop: 10/29/20 21:30 Last Admin: 09/29/20 22:37 Dose: 100 mg Documented by: [id number] Duloxetine HCl (Duloxetine Hcl 60 Mg Cap) 60 mg PO BID MIGUEL Stop: 10/29/20 21:30 Last Admin: 09/29/20 22:36 Dose: 60 mg Documented by: [id number] Gabapentin (Gabapentin 600 Mg Tab) 600 mg PO 0330,0830,1530,2030 MIGUEL Stop: 10/29/20 21:30 Last Admin: 09/29/20 22:36 Dose: 600 mg Documented by: [id number] Gabapentin (Gabapentin 300 Mg Cap) 300 mg PO 0330,0830,1530,2030 MIGUEL Stop: 10/29/20 21:30 Last Admin: 09/29/20 22:38 Dose: 300 mg Documented by: [id number] Guaifenesin (Guaifenesin 600 Mg Tabcr) 600 mg PO Q12 MIGUEL Stop: 10/29/20 21:30 Last Admin: 09/29/20 22:37 Dose: 600 mg Documented by: [id number] Hydromorphone HCl (Hydromorphone Inj 0.5 Mg/0.5 Ml Syr) 0.5 mg IV Q3H PRN PRN Reason: Pain Stop: 10/13/20 20:22 Last Admin: 09/29/20 22:27 Dose: 0.5 mg Documented by: [id number] Sodium Chloride (Nss 1000ml) 1,000 mls @ 100 mls/hr IV .Q10H MIGUEL Stop: 10/29/20 21:30 Last Admin: 09/29/20 22:40 Dose: 100 mls/hr Documented by: [id number] Lamotrigine (Lamotrigine 25 Mg Tab) 50 mg PO HS [facility] Stop: 10/29/20 21:30 Last Admin: 09/29/20 22:37 Dose: 50 mg Documented by: [id number] Methenamine Hippurate (Methenamine Hippurate 1 Gm Tab) 1 gm PO BID MIGUEL Stop: 10/29/20 21:30 Last Admin: 09/29/20 22:39 Dose: 1 gm Documented by: [id number] Mirtazapine (Mirtazapine Tab 15 Mg Tab) 7.5 mg PO HS [facility] Stop: 10/29/20 21:30 Last Admin: 09/29/20 22:38 Dose: 7.5 mg Documented by: [id number] Miscellaneous (Docusate Enema~Order Awaiting Action) 1 ea N/A QS [facility] Stop: 10/30/20 00:00 Last Admin: 09/29/20 23:12 Dose: Not Given Documented by: [id number] Miscellaneous (Patient's Height And/Or Weight Needed) 1 ea N/A Q2H [facility] Stop: 10/29/20 21:59 Last Admin: 09/29/20 23:12 Dose: 1 ea Documented by: [id number] Admin: 09/29/20 23:11 Dose: 1 ea Documented by: [id number] Sodium Biphosphate/Sodium Phosphate (Sod Phosphate/Sod Biphosphate Enema 132 Ml Btl) 132 ml LA DAILY PRN PRN Reason: Constipation Stop: 10/29/20 21:30 Last Admin: 09/29/20 22:08 Dose: 132 ml Documented by: [id number] Sodium Chloride (Sodium Chloride 1 Gm Tablet) 2 gm PO TID [facility] Stop: 10/29/20 21:30 Last Admin: 09/29/20 22:35 Dose: 2 gm Documented by: [id number] Discontinued Medications Acetaminophen (Acetaminophen 1000 Mg/100 Ml Iv) 1,000 mg IV NOW STA Stop: 09/29/20 18:04 Last Admin: 09/29/20 18:30 Dose: 1,000 mg Documented by: [id number] Baclofen (Baclofen 10 Mg Tab) 10 mg PO TODAY@2130 [facility] Stop: 09/29/20 23:00 Last Admin: 09/29/20 22:35 Dose: 10 mg Documented by: [id number] Baclofen (Baclofen 20 Mg Tab) 20 mg PO TODAY@2130 [facility] Stop: 09/29/20 23:00 Last Admin: 09/29/20 22:38 Dose: 20 mg Documented by: [id number] Aztreonam 1,000 mg/ Dextrose 110 mls @ 100 mls/hr IV NOW STA; Protocol Stop: 09/29/20 19:19 Last Infusion: 09/29/20 20:07 Dose: 0 mls/hr Documented by: [id number] Admin: 09/29/20 18:58 Dose: 100 mls/hr Documented by: [id number] Daptomycin 350 mg/ Syringe 7 mls @ 3.5 mls/min IV NOW ONE; Protocol Stop: 09/29/20 18:15 Last Admin: 09/29/20 18:58 Dose: 3.5 mls/min Documented by: [id number] Ondansetron HCl (Ondansetron Inj 2 Mg/Ml 2 Ml Vial) 4 mg IV NOW STA Stop: 09/29/20 19:44 Last Admin: 09/29/20 20:00 Dose: 4 mg Documented by: [id number] Oxycodone/Acetaminophen (Oxycodone/Acetaminophen 5mg/325mg Tab) 1 tab PO NOW STA Stop: 09/29/20 19:54 Last Admin: 09/29/20 20:00 Dose: 1 tab Documented by: [id number] Potassium Chloride (Potassium Chloride 20 Meq/15 Ml Udc) 20 meq PO NOW STA Stop: 09/29/20 21:32 Last Admin: 09/29/20 22:40 Dose: 20 meq Documented by: [id number] Critical Care Time Critical Care Time: Yes Total Critical Care Time: 43 I have personally spent greater than 43 minutes of critical care time in the direct management of this patient. This includes bedside care, interpretation of diagnostic studies, and testing, discussion with consultants, patient, and family members, and other required patient management activities. This 43 min utes is in excess of all separately billable procedures. Medical Decision Making Laboratory Data Result diagrams: 09/29/20 17:41 09/29/20 17:41 Lab Results 09/29/20 09/29/20 09/29/20 Range/Units 17:20 17:41 17:41 WBC 7.02 (4.8-10.8) K/uL RBC 3.90 L (4.2-5.4) M/uL Hgb 11.9 L (12.0-16.0) g/dL Hct 35.7 L (37-47) % MCV 91.5 (80-100) fL MCH 30.5 (25-34) pg MCHC 33.3 (32-36) g/dL RDW Std Deviation 45.8 (36.4-46.3) fL RDW Coeff of Andres 13.7 (11.5-14.5) % Plt Count 77 L (130-400) K/uL MPV 9.9 (7.4-10.4) fL Immature Gran % (Auto) 0.3 % Neut % (Auto) 79.6 % Lymph % (Auto) 12.0 % Grady % (Auto) 7.1 % Eos % (Auto) 0.9 % Baso % (Auto) 0.1 % Neut # (Auto) 5.59 (1.4-6.5) K/uL Lymph # (Auto) 0.84 L (1.2-3.4) K/uL Grady # (Auto) 0.50 (0.11-0.59) K/uL Eos # (Auto) 0.06 (0-0.5) K/uL Baso # (Auto) 0.01 (0-0.2) K/uL Immature Gran # (Auto) 0.02 (0.00-0.02) K/uL Platelet Estimate Decreased L (Normal) Sodium 138 (136-145) mmol/L Potassium 3.4 L (3.5-5.1) mmol/L Chloride 105 (98-107) mmol/L Carbon Dioxide 24 (21-32) mmol/L Anion Gap 9.0 (3-11) BUN 7 (7-18) mg/dl Creatinine 0.38 L (0.6-1.2) mg/dl Est Cr Clr Drug Dosing Not Reportable Est GFR ( Amer) > 150.0 Est GFR (Non-Af Amer) 145.2 BUN/Creatinine Ratio 17.5 (10-20) Glucose 160 H (70-99) mg/dl Lactate (0.4-2.0) mmol/L Calcium 8.3 L (8.5-10.1) mg/dl Total Bilirubin 0.3 (0.2-1) mg/dl AST 17 (15-37) U/L ALT 25 (12-78) U/L Alkaline Phosphatase 76 (45-117) U/L Total Protein 6.0 L (6.4-8.2) gm/dl Albumin 3.1 L (3.4-5.0) gm/dl Globulin 2.9 (2.5-4.0) gm/dl Albumin/Globulin Ratio 1.1 (0.9-2) Urine Color Dark Yellow Urine Appearance Turbid A (Clear) Urine pH 8.0 H (4.5-7.5) Ur Specific Warren 1.021 (1.000-1.030) Urine Protein 1+ H (Negative) Urine Glucose (UA) Negative (Negative) Urine Ketones 3+ H (Negative) Urine Blood Negative (Negative) Urine Nitrite Positive A (Negative) Urine Bilirubin Negative (Negative) Urine Urobilinogen Negative (Negative) Ur Leukocyte Esterase 2+ H (Negative) Urine WBC (Auto) >30 H (0-5) /hpf Urine RBC (Auto) 0-4 (0-4) /hpf U Hyaline Cast (Auto) 10-30 H (0-5) /lpf U Epithel Cells (Auto) >30 H (0-5) /lpf Urine Bacteria (Auto) 3+ H (Negative) Triple Phos Crystals Present A (None Prsent) Amorphous Sediment Present A (None Prsent) Urine Yeast Not Reportable COVID-19 Eval Order SARS-CoV-2 (PCR) (Negative) Influenza Type A (PCR) (Neg) Influenza Type B (PCR) (Neg) RSV (RT-PCR) (Neg) 09/29/20 09/29/20 09/29/20 Range/Units 17:47 18:24 18:24 WBC (4.8-10.8) K/uL RBC (4.2-5.4) M/uL Hgb (12.0-16.0) g/dL Hct (37-47) % MCV (80-100) fL MCH (25-34) pg MCHC (32-36) g/dL RDW Std Deviation (36.4-46.3) fL RDW Coeff of Andres (11.5-14.5) % Plt Count (130-400) K/uL MPV (7.4-10.4) fL Immature Gran % (Auto) % Neut % (Auto) % Lymph % (Auto) % Grady % (Auto) % Eos % (Auto) % Baso % (Auto) % Neut # (Auto) (1.4-6.5) K/uL Lymph # (Auto) (1.2-3.4) K/uL Grady # (Auto) (0.11-0.59) K/uL Eos # (Auto) (0-0.5) K/uL Baso # (Auto) (0-0.2) K/uL Immature Gran # (Auto) (0.00-0.02) K/uL Platelet Estimate (Normal) Sodium (136-145) mmol/L Potassium (3.5-5.1) mmol/L Chloride (98-107) mmol/L Carbon Dioxide (21-32) mmol/L Anion Gap (3-11) BUN (7-18) mg/dl Creatinine (0.6-1.2) mg/dl Est Cr Clr Drug Dosing Est GFR ( Amer) Est GFR (Non-Af Amer) BUN/Creatinine Ratio (10-20) Glucose (70-99) mg/dl Lactate 2.2 H* (0.4-2.0) mmol/L Calcium (8.5-10.1) mg/dl Total Bilirubin (0.2-1) mg/dl AST (15-37) U/L ALT (12-78) U/L Alkaline Phosphatase (45-117) U/L Total Protein (6.4-8.2) gm/dl Albumin (3.4-5.0) gm/dl Globulin (2.5-4.0) gm/dl Albumin/Globulin Ratio (0.9-2) Urine Color Urine Appearance (Clear) Urine pH (4.5-7.5) Ur Specific Warren (1.000-1.030) Urine Protein (Negative) Urine Glucose (UA) (Negative) Urine Ketones (Negative) Urine Blood (Negative) Urine Nitrite (Negative) Urine Bilirubin (Negative) Urine Urobilinogen (Negative) Ur Leukocyte Esterase (Negative) Urine WBC (Auto) (0-5) /hpf Urine RBC (Auto) (0-4) /hpf U Hyaline Cast (Auto) (0-5) /lpf U Epithel Cells (Auto) (0-5) /lpf Urine Bacteria (Auto) (Negative) Triple Phos Crystals (None Prsent) Amorphous Sediment (None Prsent) Urine Yeast COVID-19 Eval Order CovFluRsv at [facility] SARS-CoV-2 (PCR) NEGATIVE (Negative) Influenza Type A (PCR) Negative (Neg) Influenza Type B (PCR) Negative (Neg) RSV (RT-PCR) Negative (Neg) 09/29/20 Range/Units 20:03 WBC (4.8-10.8) K/uL RBC (4.2-5.4) M/uL Hgb (12.0-16.0) g/dL Hct (37-47) % MCV (80-100) fL MCH (25-34) pg MCHC (32-36) g/dL RDW Std Deviation (36.4-46.3) fL RDW Coeff of Andres (11.5-14.5) % Plt Count (130-400) K/uL MPV (7.4-10.4) fL Immature Gran % (Auto) % Neut % (Auto) % Lymph % (Auto) % Grady % (Auto) % Eos % (Auto) % Baso % (Auto) % Neut # (Auto) (1.4-6.5) K/uL Lymph # (Auto) (1.2-3.4) K/uL Grady # (Auto) (0.11-0.59) K/uL Eos # (Auto) (0-0.5) K/uL Baso # (Auto) (0-0.2) K/uL Immature Gran # (Auto) (0.00-0.02) K/uL Platelet Estimate (Normal) Sodium (136-145) mmol/L Potassium (3.5-5.1) mmol/L Chloride (98-107) mmol/L Carbon Dioxide (21-32) mmol/L Anion Gap (3-11) BUN (7-18) mg/dl Creatinine (0.6-1.2) mg/dl Est Cr Clr Drug Dosing Est GFR ( Amer) Est GFR (Non-Af Amer) BUN/Creatinine Ratio (10-20) Glucose (70-99) mg/dl Lactate 1.2 (0.4-2.0) mmol/L Calcium (8.5-10.1) mg/dl Total Bilirubin (0.2-1) mg/dl AST (15-37) U/L ALT (12-78) U/L Alkaline Phosphatase (45-117) U/L Total Protein (6.4-8.2) gm/dl Albumin (3.4-5.0) gm/dl Globulin (2.5-4.0) gm/dl Albumin/Globulin Ratio (0.9-2) Urine Color Urine Appearance (Clear) Urine pH (4.5-7.5) Ur Specific Warren (1.000-1.030) Urine Protein (Negative) Urine Glucose (UA) (Negative) Urine Ketones (Negative) Urine Blood (Negative) Urine Nitrite (Negative) Urine Bilirubin (Negative) Urine Urobilinogen (Negative) Ur Leukocyte Esterase (Negative) Urine WBC (Auto) (0-5) /hpf Urine RBC (Auto) (0-4) /hpf U Hyaline Cast (Auto) (0-5) /lpf U Epithel Cells (Auto) (0-5) /lpf Urine Bacteria (Auto) (Negative) Triple Phos Crystals (None Prsent) Amorphous Sediment (None Prsent) Urine Yeast COVID-19 Eval Order SARS-CoV-2 (PCR) (Negative) Influenza Type A (PCR) (Neg) Influenza Type B (PCR) (Neg) RSV (RT-PCR) (Neg) Imaging Data Radiologist's Impression: Chest X-Ray 09/29/20 17:27 XR chest 1V portable HISTORY: 29 years-old Female Fever acute fever COMPARISON: Chest radiograph 09/17/2020 TECHNIQUE: Portable AP view of the chest FINDINGS: Cardiomediastinal and hilar silhouettes are unchanged. No pneumothorax, pleural effusion, airspace consolidation or overt pulmonary edema. Right IJ [id number] catheter distal tip terminates in the expected location of the proximal to mid SVC. Unchanged mild linear bibasilar scarring versus atelectasis. Partially imaged cervical thoracic spinal fusion hardware. IMPRESSION: No acute process. ACT 112: Negative or not required by law. The above report was generated using voice recognition software. It may contain grammatical, syntax or spelling errors. Electronically signed by: Cameron Dickson M.D. 09/29/2020 6:32 PM ECG Data Indication: + other (sepsis) Rate (beats per minute): 87 Rhythm: + normal sinus ECG Intervals/blocks: + Normal QRS, + Prolonged QT and + Normal LA ECG ST segments: + Normal ST segments [facility] Narrative 1802: The patient was evaluated in room C5. A complete history and physical exam was performed Cardiac monitoring: An order was placed for continuous cardiac monitoring. The monitor shows a rate of 100 with sinus tachycardia rhythm Patient was found to be febrile tachycardic and hypotensive. Sepsis protocols were initiated. 1845: Blood pressure improved with fluid bolus. Patient will be started on daptomycin and aztreonam given her long history of significant allergies to antibiotics. EMR was reviewed and this combination has been used on the patient in the past without any adverse reactions. Is thought that this patient is septic from the cellulitis on her posterior left lower extremity and possibly due to her urine. Lactic acid 2.2. White blood cell count within normal limits. Impression & Plan Sepsis, Cellulitis Discharge Plan Visit Data Chief Complaint: Fever Stated Complaint: KCJLV-SDAR-GUEYOS-HEADACHE-PASSING OUT ED Provider: Amilcar Cash Discharge Problem: Sepsis, Cellulitis Patient Disposition: Admitted As Inpatient Discharge Instructions Interventions: ED Discharge Assessment Last Done: 09/29/20 21:23 Discharge Problem: Sepsis Qualifiers: Sepsis type: sepsis due to unspecified organism Sepsis acute organ dysfunction status: unspecified Qualified Code(s): A41.9 - Sepsis, unspecified organism Cellulitis Qualifiers: Site of cellulitis: extremity Site of cellulitis of extremity: lower extremity Laterality: left Qualified Code(s): L03.116 - Cellulitis of left lower limb
[2020-09-30] MEDS: [UNRECOGNIZED DRUG - REMARK] SCH ×4 (01:02→23:26)
[2020-09-30] MEDS ORDERED: Nursing to Pharmacy Communication SCH (01:15)
[2020-09-30] MEDS: AZTREONAM 2,000 MG in DEXTROSE 5% 100 ML IV SCH ×3 (02:01→18:05)
[2020-09-30] MEDS: PATIENT'S HEIGHT AND/OR WEIGHT NEEDED SCH ×2 (02:04→04:03)
[2020-09-30] MEDS: BACLOFEN 10 MG TAB PO SCH ×4 (03:35→21:06)
[2020-09-30] MEDS: GABAPENTIN 300 MG CAP PO SCH ×4 (03:35→20:53)
[2020-09-30] MEDS: GABAPENTIN 600 MG TAB PO SCH ×4 (03:35→20:53)
[2020-09-30] MEDS: BACLOFEN 20 MG TAB PO SCH ×4 (03:36→20:54)
[2020-09-30] MEDS: oxyCODONE/APAP 7.5/325MG TAB PO PRN ×2 (04:02→11:42)
[2020-09-30 07:40] LABS: Hematocrit (blood only) 37.7 % (37-47); Hemoglobin 12.4 g/dL (12.0-16.0); Mean Corpuscular Hemoglobin 30.2 pg (25-34); Mean Corpuscular Hgb Conc 32.9 g/dL (32-36); RDW Coefficient of Variation 13.9 % (11.5-14.5); RDW Standard Deviation 46.5 fL (36.4-46.3); White Blood Count 6.98 K/uL (4.8-10.8)
[2020-09-30] MEDS: HYDROmorphone INJ 0.5 MG/0.5 ML SYR IV PRN ×3 (07:59→22:50)
[2020-09-30] MEDS: busPIRone 5 MG TAB PO SCH ×2 (08:00→20:57)
[2020-09-30] MEDS: POTASSIUM CHLORIDE 10 MEQ TABCR PO SCH ×2 (08:01→20:59)
[2020-09-30] MEDS: METHENAMINE HIPPURATE 1 GM TAB PO SCH ×2 (08:01→20:57)
[2020-09-30] MEDS: DOCUSATE SODIUM 100 MG CAP PO SCH ×2 (08:01→21:08)
[2020-09-30] MEDS: DANTROLENE SODIUM 25 MG CAP PO SCH ×3 (08:01→20:56)
[2020-09-30] MEDS: guaiFENesin 600 MG TABCR PO SCH ×2 (08:02→20:58)
[2020-09-30] MEDS: ASCORBIC ACID 500 MG TAB PO SCH ×2 (08:02→20:54)
[2020-09-30] MEDS: SODIUM CHLORIDE 1 GM TABLET PO SCH ×3 (08:03→20:59)
[2020-09-30] MEDS: DULoxetine HCL 60 MG CAP PO SCH ×2 (08:03→20:57)
[2020-09-30 08:10] LABS: BUN Creatinine Ratio 27.2 (10-20); Blood Urea Nitrogen 5 mg/dl (7-18); Calcium 8.4 mg/dl (8.5-10.1); Carbon Dioxide 23 mmol/L (21-32); Chloride 109 mmol/L (98-107); Creatinine Clr Calc Pharmacy 437.3 ml/min; Est GFR (African American) > 150.0; Est GFR (Non-African American) > 150.0; Glucose 82 mg/dl (70-99); Magnesium 1.8 mg/dl (1.8-2.4); Potassium 3.3 mmol/L (3.5-5.1); Sodium 138 mmol/L (136-145)
[2020-09-30 08:27] LABS: Mean Platelet Volume 10.5 fL (7.4-10.4); Platelet Count 86 K/uL (130-400)
[2020-09-30 08:28] LABS: Basophils # (auto) 0.01 K/uL (0-0.2); Basophils % (auto) 0.1 %; Eosinophils # (auto) 0.14 K/uL (0-0.5); Immature Granulocytes # (auto) 0.03 K/uL (0.00-0.02); Immature Granulocytes % (auto) 0.4 %; Lymphocytes # (auto) 1.22 K/uL (1.2-3.4); Lymphocytes % (auto) 17.5 %; Monocytes # (auto) 0.72 K/uL (0.11-0.59); Monocytes % (auto) 10.3 %; Neutrophils # (auto) 4.86 K/uL (1.4-6.5); Neutrophils % (auto) 69.7 %; RBC Morphology Unremarkable
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
--- NOTE | 2020-09-30 08:52 | Electrocardiogram Report ---
Test Reason : Blood Pressure : / mmHG Vent. Rate : 087 BPM Atrial Rate : 087 BPM P-R Int : 126 ms QRS Dur : 090 ms QT Int : 436 ms P-R-T Axes : 057 108 022 degrees QTc Int : 524 ms Normal sinus rhythm Left atrial enlargement Incomplete right bundle branch block Rightward axis Low voltage QRS Nonspecific T wave abnormality Anterior leads T-wave inversion in Inferior leads Abnormal ECG When compared with ECG of 17-SEP-2020 11:00, T-wave inversion in Inferior leads now present Confirmed by Wade Simental ([id number]) on 09/30/2020 8:52:20 AM Referred By: REFERRED SELF Confirmed By:Wade Simental
[2020-09-30] MEDS: SODIUM CHLORIDE 0.9% 1000ML 1,000 ML IV SCH ×2 (08:54→18:37)
--- NOTE | 2020-09-30 09:07 | Urology Consultation ---
Date of Consultation September 30, 2020 Assessment & Plan (1) Sepsis: (2) Neurogenic bladder: (3) Indwelling Bonds catheter present: 29yo F who presented with fever, LLE rash, and headache and was admitted with sepsis. - Hospital course, labs, and imaging reviewed - Hx of neurogenic bladder, chronic bonds, recurrent UTI and bladder stones - Sepsis possibly secondary to suspected UTI vs. LLE cellulitis - She is afebrile - Labs reviewed, Wbc and creatinine stable - Urine culture preliminary gram negative bacilli; Blood cultures pending - Patient was previously scheduled for procedure in the OR tomorrow for treatment of bladder stones with Dr. Davis. - Surgical procedure tomorrow dependent on clinical progress - Will plan to reassess in the AM - NPO at midnight for possible procedure tomorrow - Continue supportive care and antibiotics -Follow cultures - Maintain bonds catheter - Will continue to trend labs - Will continue to follow History of Present Illness Reason for Consultation: Recurrent UTI Attending Physician: Vernon Prakash DO History of Present Illness 29yo F with a past medical history including cervical fracture, quadriplegia, neurogenic bladder, chronic hypotension, chronic indwelling Bonds catheter, history of DVT, on Xarelto, history of recurrent UTIs, history of tracheostomy, history of stage III sacral ulcer, history of depression, status post Port-A-Cath, generalized anxiety disorder, and persistent insomnia who presented to the ED with fever x1 day, severe headache, and rash to her left lower extremity. On presentation to the ER, she was febrile, Wbc 7.02 and Cr 0.38. She was tachycardic. Urinalysis positive for nitrites, 2+ leukocytes, >30WBC, 0-4RBC, 3+bacteria. She was started on Daptomycin and Azactam. Urine and blood cultures pending. Of note, she is currently following with wound care for her chronic sacral decubitus ulceration. She was also recently in the hospital in the first week of August with cellulitis of labia and questionable chronic osteomyelitis of the left ischial tuberosity. She was treated with antibiotics, and discharged on clindamycin for 2 weeks, which she completed the course. She is also getting hyperbaric oxygen treatment for her sacral wound. Urology consulted for recurrent UTI Patient is known to our service. - Hx of neurogenic bladder requiring chronic bonds catheter; Hx of recurrent UTI Patient was recently seen by urology as an outpatient. She has multiple known bladder stones. She also gets Botox injections to the bladder approximately every 9 months. She is currently scheduled for surgery on 10/01/[address] Davis for Cystolitholpaxy, Bladder Stone Fragmentation and Removal and Botox injection. Pt examined at bedside this AM. Awake, resting in bed on arrival. She reports a headache this morning. Pain has improved some with IV pain medication. No other complaints of pain or discomfort. No fever, some chills. Regular diet this morning, some nausea/vomiting following breakfast. Bonds catheter intact, draining clear, yellow urine. Per chart review, Bonds catheter was changed about 2 weeks ago. No additional complaints at this time. Allergies Allergy/AdvReac Type Severity Reaction Status Date / Time cefepime Allergy Severe ANAPHYLAXIS Verified 09/29/20 18:45 imipenem Allergy Severe SEIZURE Verified 09/29/20 18:45 fentanyl Allergy Intermediate ITCHY AND Verified 09/29/20 18:45 RASH Penicillins Allergy Intermediate RASH PER Verified 09/29/20 18:45 MOTHER Sulfa (Sulfonamide Allergy Intermediate Rash Verified 09/29/20 18:45 Antibiotics) vancomycin Allergy Intermediate RASH Verified 09/29/20 18:45 levofloxacin Allergy Mild rash Verified 09/29/20 18:45 Home Medications Medication Instructions Recorded Confirmed Type Xarelto 20 mg PO QAM 03/07/18 09/29/20 History ascorbic acid (vitamin C) 1 g PO Q12 03/07/18 09/29/20 History buspirone 10 mg PO BID 03/07/18 09/29/20 History dantrolene 100 mg PO TID 03/07/18 09/29/20 History docusate sodium 100 mg PO BID 03/07/18 09/29/20 History fluticasone propionate 2 spray INTRANASAL QAM PRN 03/07/18 09/29/20 History lorazepam 0.5 mg PO Q8 PRN 03/07/18 09/29/20 History methenamine hippurate [Hiprex] 1 g PO BID 03/07/18 09/29/20 History mirtazapine 7.5 mg PO HS 03/07/18 09/29/20 History zolpidem 5 mg PO HS PRN 03/07/18 09/29/20 History nystatin 1 applic TOPICAL BID PRN 03/18/18 09/29/20 History guaifenesin [Mucinex] 600 mg PO Q12H 04/06/18 09/29/20 History baclofen 20 mg PO QID 12/28/18 09/29/20 History duloxetine 60 mg capsule,delayed 60 mg PO BID cap 02/02/19 09/29/20 History release gabapentin 600 mg tablet 600 mg PO QID tab 02/02/19 09/29/20 History oxycodone-acetaminophen 7.5 mg-325 1 tab PO Q6H PRN 06/15/19 09/29/20 History mg tablet melatonin 3 mg PO HS PRN 08/13/19 09/29/20 History baclofen 10 mg PO QID 09/25/19 09/29/20 History docusate sodium [Enemeez] 283 mg TX HS 09/25/19 09/29/20 History gabapentin 300 mg PO QID 09/25/19 09/29/20 History cyclobenzaprine 5 mg tablet 5 mg PO TID PRN 11/16/19 09/29/20 History lamotrigine 50 mg PO HS 08/24/20 09/29/20 History oxybutynin chloride 5 mg PO Q6H PRN 08/24/20 09/29/20 History sodium chloride 2 g PO TID 08/24/20 09/29/20 History citric ac 1980.6 mg-glucono 59.4 30 ml IRRIGATION 3XWK #900 ml 09/24/20 09/29/20 Rx mg-mag carb 980.4 mg/30 mL irrig.soln potassium chloride 10 meq PO BID 09/29/20 09/29/20 History Patient History Medical History Anxiety Autonomic dysreflexia Bladder stones Chronic osteomyelitis Depression Environmental allergies History of DVT (deep vein thrombosis) "UPPER EXTREMITY"- ON XARELTO (NO FURTHER DETAILS) - cause unknown History of seizure 2013 - due to BP issue - none since > Hx of pneumothorax hx with chest tube. Treated at [facility]> 6 ys ago Indwelling Bonds catheter present CHANGED EVERY 2 WEEKS Labial cyst resolving> DC'ed from [facility] 08/29/20 Neurogenic bladder Paraplegia Port-A-Cath in place 06/15/18= A-PORT REPOSITION= MAC SEDATION AT [facility]. 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 07/2019. Status post debridement LEFT ISCHIAL ULCER DEBRIDEMENT/PLACEMENT OF WOUND VAC= 03/14/18= LMA #4 Status post debridement (~07/2018) left ischial ulcer debridement with flap 07/2018: MAC#3, ETT#7.0, Grade 2 View Status post debridement buttock wound 10/16/1920 Grade 1 view with Mac 3 blade Family History Father Diabetes Brother Depression Other No family history of adverse response to anesthesia Social History Smoking Status: Never smoker Cigarettes Per Day: HX 1/2 PPD PER RECORDS; Second Hand Exposure: Yes; Hx Alcohol Use: No Hx Substance Use: No Preferred Language: Lithuanian Communication Ability: Effective Visual Impairment: Limited Hearing Ability: Normal 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: No Beliefs That Will Affect Care: None marital status: Single Current Living Situation: Family Current Living Situation Comment: Lives with mom, dad and brother current occupational status: disabled How many Children do You have: 0 Other Information That Helps Us Care for You: No Feels Safe at Home: Yes Childhood Exposure to Second-Hand Smoke: No Assistive Devices: None Review of Systems Review of Systems: All systems reviewed & are unremarkable except as noted in HPI & below Physical Exam Constitutional: + thin; no acute distress Neck: normal visual inspection Respiratory: no labored breathing and does not use accessory muscles Gastrointestinal (Abdomen): Inspection/Auscultation: abdomen normal to inspection; abdomen not distended Percussion/Palpation: abdomen soft Musculoskeletal: Head/Neck/Chest: normocephalic and head atraumatic Skin: Left-sided sacral/buttock ulcer Neurologic: awake Paraplegic Psychiatric: A+Ox3, euthymic affect Genitourinary: Bonds catheter intact Results & Data ([facility]) Vital Signs (Past 12 Hours) Vital Signs Temp Pulse Pulse Pulse Resp BP BP 09/30/20 07:13 78 09/30/20 07:08 36.8 C 83 18 131/86 09/30/20 03:48 36.8 C 88 16 100/63 09/30/20 00:00 81 09/29/20 23:04 37.4 C 99 H 18 111/70 09/29/20 21:21 37.6 C H 104 H 21 110/58 L 09/29/20 21:15 90 Pulse Ox 09/30/20 07:13 09/30/20 07:08 98 09/30/20 03:48 96 09/30/20 00:00 09/29/20 23:04 98 09/29/20 21:21 96 09/29/20 21:15 PG Care Time/CCT Total # of Minutes Spent Total Time Spent with Patient: Total time spent is greater than 50% in coordination of care (as documented) at patient's floor/unit and/or counseling patient: Coding Level of Care Code 38650 Inpt Consult Level 4 Diagnoses Sepsis A41.9 Sepsis acute organ dysfunction status: unspecified Sepsis type: sepsis due to unspecified organism Neurogenic bladder N31.9 Indwelling Bonds catheter present Z96.0 (1) Sepsis Sepsis acute organ dysfunction status: unspecified Sepsis type: sepsis due to unspecified organism Qualified Code(s): A41.9 - Sepsis, unspecified organism
[2020-09-30] MEDS: POTASSIUM CHLORIDE / WTR 10 MEQ/100 ML PLCT IV SCH ×4 (09:28→12:37)
[2020-09-30] MEDS ORDERED: DAPTOmycin 350 MG in SYRINGE 0 ML IV SCH (19:00)
[2020-09-30] MEDS: MIRTAZAPINE TAB 15 MG TAB PO SCH (20:55)
[2020-09-30] MEDS: lamoTRIgine 25 MG TAB PO SCH (20:55)
[2020-09-30] MEDS: SOD PHOSPHATE/SOD BIPHOSPHATE ENEMA 132 ML BTL PR PRN (21:46)
[2020-10-01] MEDS: AZTREONAM 2,000 MG in DEXTROSE 5% 100 ML IV SCH ×2 (01:54→09:33)
[2020-10-01] MEDS: GABAPENTIN 300 MG CAP PO SCH ×4 (02:59→19:40)
[2020-10-01] MEDS: BACLOFEN 20 MG TAB PO SCH ×4 (02:59→19:40)
[2020-10-01] MEDS: GABAPENTIN 600 MG TAB PO SCH ×4 (02:59→19:40)
[2020-10-01] MEDS: BACLOFEN 10 MG TAB PO SCH ×4 (02:59→19:40)
[2020-10-01] MEDS: SODIUM CHLORIDE 0.9% 1000ML 1,000 ML IV SCH (04:55)
[2020-10-01 06:22] LABS: Hematocrit (blood only) 36.6 % (37-47); Mean Corpuscular Hemoglobin 30.1 pg (25-34); Mean Corpuscular Hgb Conc 32.8 g/dL (32-36); Mean Corpuscular Volume 91.7 fL (80-100); RDW Standard Deviation 47.3 fL (36.4-46.3); Red Blood Count 3.99 M/uL (4.2-5.4); White Blood Count 4.46 K/uL (4.8-10.8)
[2020-10-01 06:28] LABS: Mean Platelet Volume 10.3 fL (7.4-10.4); Platelet Count 94 K/uL (130-400)
[2020-10-01] MEDS: HYDROmorphone INJ 0.5 MG/0.5 ML SYR IV PRN ×3 (07:02→23:20)
[2020-10-01 07:12] LABS: Alanine Aminotransferase 24 U/L (12-78); Alkaline Phosphatase 83 U/L (45-117); Aspartate Aminotransferase 14 U/L (15-37); Bilirubin,Total 0.4 mg/dl (0.2-1); Blood Urea Nitrogen 3 mg/dl (7-18); Calcium 8.2 mg/dl (8.5-10.1); Carbon Dioxide 25 mmol/L (21-32); Chloride 112 mmol/L (98-107); Creatinine Clr Calc Pharmacy 524.8 ml/min; Est GFR (African American) > 150.0; Est GFR (Non-African American) > 150.0; Globulin 2.9 gm/dl (2.5-4.0); Glucose 83 mg/dl (70-99); Potassium 3.8 mmol/L (3.5-5.1); Sodium 141 mmol/L (136-145); Total Protein 5.9 gm/dl (6.4-8.2)
[2020-10-01 07:24] LABS: Basophils # (auto) 0.01 K/uL (0-0.2); Basophils % (auto) 0.2 %; Eosinophils % (auto) 4.5 %; Immature Granulocytes # (auto) 0.01 K/uL (0.00-0.02); Immature Granulocytes % (auto) 0.2 %; Lymphocytes # (auto) 1.17 K/uL (1.2-3.4); Lymphocytes % (auto) 26.2 %; Monocytes # (auto) 0.75 K/uL (0.11-0.59); Monocytes % (auto) 16.8 %; Neutrophils # (auto) 2.32 K/uL (1.4-6.5); Neutrophils % (auto) 52.1 %
[2020-10-01] MEDS: [UNRECOGNIZED DRUG - REMARK] SCH ×3 (07:46→23:41)
[2020-10-01] MEDS: POTASSIUM CHLORIDE 10 MEQ TABCR PO SCH ×2 (08:17→21:31)
[2020-10-01] MEDS: SODIUM CHLORIDE 1 GM TABLET PO SCH ×3 (08:18→21:30)
[2020-10-01] MEDS: guaiFENesin 600 MG TABCR PO SCH ×2 (08:18→21:33)
[2020-10-01] MEDS: DULoxetine HCL 60 MG CAP PO SCH ×2 (08:19→21:30)
[2020-10-01] MEDS: METHENAMINE HIPPURATE 1 GM TAB PO SCH ×2 (08:19→21:31)
[2020-10-01] MEDS: busPIRone 5 MG TAB PO SCH ×2 (08:19→21:33)
[2020-10-01] MEDS: DANTROLENE SODIUM 25 MG CAP PO SCH ×3 (08:20→21:30)
[2020-10-01] MEDS: ASCORBIC ACID 500 MG TAB PO SCH ×3 (08:21→21:32)
--- NOTE | 2020-10-01 08:25 | Urology Progress Note ---
Date of Service October 01, 2020 Assessment & Plan (1) Acute urinary tract infection: (2) Sepsis: (3) Indwelling Bonds catheter present: 29yo F who presented with fever, LLE rash, and headache and was admitted with sepsis. - Hx of neurogenic bladder, chronic bonds, recurrent UTI and bladder stones - Sepsis possibly secondary to acute UTI vs. LLE cellulitis - She remains afebrile - Labs reviewed, Wbc and creatinine stable - Urine culture preliminary proteus mirabilis; Blood cultures pending - Plan of care reviewed with Dr. Davis - Will delay scheduled surgical procedure today for treatment of bladder stones given positive preliminary urine culture - Potential to add-on later this week if still inpatient presuming she continues to clinically progress - Ok to have diet today - Continue supportive care and antibiotics, follow cultures - Maintain bonds catheter - Patient can resume anticoagulant therapy today. Per Dr. Davis, she does not need to hold prior to procedure. - Will continue to follow Admission and Anticipated Discharge Date Admission Date: September 29, 2020 Subjective Pt examined at bedside this AM. Awake, resting in bed on arrival. Pt states she is feeling much better today. No longer with a headache. Denies any pain or discomfort at this time. Bonds catheter intact, draining clear, yellow urine. No fevers or chills. Denies nausea/vomiting. She has been NPO since midnight. Chart review: Afebrile, Wbc 4.46, Hgb 12.0, Cr <0.15 Review of Systems Constitutional: as per Subjective / HPI Gastrointestinal: as per Subjective / HPI Genitourinary: as per Subjective / HPI Physical Exam Constitutional: + thin; no acute distress Neck: normal visual inspection Respiratory: no labored breathing and does not use accessory muscles Gastrointestinal (Abdomen): Inspection/Auscultation: abdomen normal to inspection; abdomen not distended Musculoskeletal: Head/Neck/Chest: normocephalic and head atraumatic Neurologic: awake Paraplegic Psychiatric: A+Ox3, euthymic affect Genitourinary: Bonds catheter intact Results & Data ([facility]) Vital Signs (Past 12 Hours) Vital Signs Temp Pulse Pulse Resp BP BP Pulse Ox 10/01/20 07:25 71 10/01/20 07:18 36.9 C 70 16 111/76 97 10/01/20 03:57 36.9 C 64 16 104/66 95 10/01/20 02:38 74 09/30/20 23:05 37.2 C 90 24 115/67 99 PG Care Time/CCT Total # of Minutes Spent Total Time Spent with Patient: Total time spent is greater than 50% in coordination of care (as documented) at patient's floor/unit and/or counseling patient: Coding Level of Care Code 74555 Subseq Hosp Care Lvl 2 Diagnoses Acute urinary tract infection N39.0 Sepsis A41.9 Sepsis acute organ dysfunction status: unspecified Sepsis type: sepsis due to unspecified organism Indwelling Bonds catheter present Z96.0 (1) Sepsis Sepsis acute organ dysfunction status: unspecified Sepsis type: sepsis due to unspecified organism Qualified Code(s): A41.9 - Sepsis, unspecified organism
[2020-10-01] MEDS: DOCUSATE SODIUM 100 MG CAP PO SCH ×2 (09:34→21:38)
[2020-10-01] MEDS: RIVAROXABAN 20 MG TAB PO SCH (09:34)
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
[2020-10-01] MEDS: oxyCODONE/APAP 7.5/325MG TAB PO PRN ×2 (12:19→21:29)
[2020-10-01] MEDS ORDERED: PANTOprazole 40 MG TAB PO PRN (16:42)
[2020-10-01] MEDS: CALCIUM CARBONATE 500 MG CHEWABLE TAB PO PRN ×2 (16:50→21:46)
[2020-10-01] MEDS: ceFAZolin 1000MG 1,000 MG/7.5 ML SYR IV SCH (18:08)
[2020-10-01] MEDS: lamoTRIgine 25 MG TAB PO SCH (21:30)
[2020-10-01] MEDS: MIRTAZAPINE TAB 15 MG TAB PO SCH (21:32)
[2020-10-02] MEDS: SOD PHOSPHATE/SOD BIPHOSPHATE ENEMA 132 ML BTL PR PRN (02:18)
[2020-10-02] MEDS: GABAPENTIN 600 MG TAB PO SCH ×3 (03:08→15:22)
[2020-10-02] MEDS: GABAPENTIN 300 MG CAP PO SCH ×3 (03:08→15:22)
[2020-10-02] MEDS: BACLOFEN 20 MG TAB PO SCH ×3 (03:08→15:21)
[2020-10-02] MEDS: ceFAZolin 1000MG 1,000 MG/7.5 ML SYR IV SCH ×2 (03:09→10:04)
[2020-10-02] MEDS: BACLOFEN 10 MG TAB PO SCH ×3 (03:09→15:21)
[2020-10-02] MEDS: [UNRECOGNIZED DRUG - REMARK] SCH ×2 (07:13→15:23)
[2020-10-02 08:41] LABS: Hematocrit (blood only) 37.1 % (37-47); Hemoglobin 12.5 g/dL (12.0-16.0); Mean Corpuscular Hemoglobin 30.7 pg (25-34); Mean Corpuscular Hgb Conc 33.7 g/dL (32-36); Mean Corpuscular Volume 91.2 fL (80-100); Mean Platelet Volume 10.1 fL (7.4-10.4); Platelet Count 125 K/uL (130-400); RDW Coefficient of Variation 13.8 % (11.5-14.5); RDW Standard Deviation 46.4 fL (36.4-46.3); Red Blood Count 4.07 M/uL (4.2-5.4); White Blood Count 3.73 K/uL (4.8-10.8)
[2020-10-02 08:59] LABS: Basophils # (auto) 0.01 K/uL (0-0.2); Basophils % (auto) 0.3 %; Eosinophils # (auto) 0.22 K/uL (0-0.5); Eosinophils % (auto) 5.9 %; Immature Granulocytes # (auto) 0.01 K/uL (0.00-0.02); Immature Granulocytes % (auto) 0.3 %; Lymphocytes # (auto) 1.93 K/uL (1.2-3.4); Lymphocytes % (auto) 51.7 %; Monocytes # (auto) 0.52 K/uL (0.11-0.59); Monocytes % (auto) 13.9 %; Neutrophils # (auto) 1.04 K/uL (1.4-6.5); Neutrophils % (auto) 27.9 %
[2020-10-02 09:13] LABS: Alanine Aminotransferase 26 U/L (12-78); Aspartate Aminotransferase 21 U/L (15-37); Blood Urea Nitrogen 6 mg/dl (7-18); Calcium 8.9 mg/dl (8.5-10.1); Carbon Dioxide 28 mmol/L (21-32); Chloride 109 mmol/L (98-107); Creatinine Clr Calc Pharmacy 371.4 ml/min; Est GFR (African American) > 150.0; Est GFR (Non-African American) > 150.0; Glucose 90 mg/dl (70-99); Potassium 4.1 mmol/L (3.5-5.1); Sodium 140 mmol/L (136-145)
[2020-10-02 09:16] LABS: Albumin Globulin Ratio 0.9 (0.9-2); Alkaline Phosphatase 82 U/L (45-117); Bilirubin,Total 0.3 mg/dl (0.2-1); Globulin 3.3 gm/dl (2.5-4.0); Total Protein 6.3 gm/dl (6.4-8.2)
[2020-10-02] MEDS: oxyCODONE/APAP 7.5/325MG TAB PO PRN ×2 (10:11→15:20)
[2020-10-02] MEDS: RIVAROXABAN 20 MG TAB PO SCH (10:11)
[2020-10-02] MEDS: POTASSIUM CHLORIDE 10 MEQ TABCR PO SCH (10:12)
[2020-10-02] MEDS: guaiFENesin 600 MG TABCR PO SCH (10:12)
[2020-10-02] MEDS: SODIUM CHLORIDE 1 GM TABLET PO SCH ×2 (10:12→14:15)
[2020-10-02] MEDS: DULoxetine HCL 60 MG CAP PO SCH (10:12)
[2020-10-02] MEDS: busPIRone 5 MG TAB PO SCH (10:13)
[2020-10-02] MEDS: METHENAMINE HIPPURATE 1 GM TAB PO SCH (10:13)
[2020-10-02] MEDS: ASCORBIC ACID 500 MG TAB PO SCH ×2 (10:13→14:16)
[2020-10-02] MEDS: DANTROLENE SODIUM 25 MG CAP PO SCH ×2 (10:14→14:16)
[2020-10-02] MEDS: DOCUSATE SODIUM 100 MG CAP PO SCH (10:21)
--- NOTE | 2020-10-02 11:00 | Urology Progress Note ---
Date of Service October 02, 2020 Assessment & Plan (1) Acute urinary tract infection: 29yo F admitted with fever, LLE rash, and headache - Hx of neurogenic bladder, chronic bonds, recurrent UTI and bladder stones - She remains afebrile - Labs reviewed, Wbc and creatinine remain stable - Urine culture final with proteus mirabilis; Blood cultures preliminary no growth - Plan of care reviewed with Dr. Davis - Potential to add-on tomorrow for surgical procedure for treatment of bladder stones if still inpatient presuming she continues to clinically progress - NPO at midnight for possible procedure tomorrow if still inpatient - If patient is discharged, we will call her to reschedule procedure - She is aware and agreeable - Continue supportive care and antibiotic therapy - Maintain bonds catheter - Patient resumed anticoagulant therapy yesterday. Per Dr. Davis, she does not need to hold prior to procedure. - Will continue to follow while inpatient Admission and Anticipated Discharge Date Admission Date: September 29, 2020 Subjective Pt examined at bedside this AM. Awake, resting in bed on arrival. Feeling well, still reports some pain to left buttock area. Bonds catheter intact, draining clear, yellow urine. No fevers or chills. Tolerating diet, no nausea/vomiting. Eager to be discharged today. Chart review: Afebrile, Wbc 3.73, Hgb 12.5, Cr 0.19 Urine culture final with proteus mirabilis. Blood cultures preliminary no growth. On IV Ancef. Review of Systems Constitutional: as per Subjective / HPI Gastrointestinal: as per Subjective / HPI Genitourinary: as per Subjective / HPI Physical Exam Constitutional: + thin; no acute distress Neck: normal visual inspection Respiratory: no labored breathing and does not use accessory muscles Gastrointestinal (Abdomen): Inspection/Auscultation: abdomen normal to inspection; abdomen not distended Musculoskeletal: Head/Neck/Chest: normocephalic Neurologic: awake Paraplegic Psychiatric: Orientation: alert, oriented x 3 and cooperative Genitourinary: Bonds catheter intact Results & Data ([facility]) Vital Signs (Past 12 Hours) Vital Signs Temp Pulse Pulse Resp BP Pulse Ox 10/02/20 07:34 69 10/02/20 02:47 36.8 C 72 18 130/89 98 10/02/20 00:46 86 10/01/20 23:10 36.5 C 77 18 113/80 100 PG Care Time/CCT Total # of Minutes Spent Total Time Spent with Patient: Total time spent is greater than 50% in coordination of care (as documented) at patient's floor/unit and/or counseling patient: Coding Level of Care Code 55289 Subseq Hosp Care Lvl 2 Diagnoses Acute urinary tract infection N39.0
[2020-10-02] MEDS: HYDROmorphone INJ 0.5 MG/0.5 ML SYR IV PRN (11:54)
--- NOTE | 2020-10-02 16:14 | Discharge Summary ---
Date of Service October 02, 2020 Admission HPI Per Admitting Provider HISTORY OF PRESENT ILLNESS: A 29-year-old female with past medical history significant for history of cervical fracture, quadriplegia, neurogenic bladder, chronic hypotension, chronic indwelling Bonilla catheter, history of DVT, on Xarelto, history of recurrent UTIs, history of tracheostomy, history of stage III sacral ulcer, history of depression, status post Port-A-Cath, generalized anxiety disorder, persistent insomnia. She is currently following with wound care for her chronic sacral decubitus ulceration, that is improving. She was also recently in the hospital in the first week of August with cellulitis of labia and questionable chronic osteomyelitis of the left ischial tuberosity. She was treated with antibiotics, and discharged on clindamycin for 2 weeks, which she completed the course. She is also getting hyperbaric oxygen treatment for her sacral wound, presents with fever starting yesterday evening and today she is having severe headaches and neck pains and also rash was noticed in her left lower extremity and was brought to the hospital. In the ER, her temperature was 38 and tachycardic, heart rate in the 100s and 90s. Her lactic acid was 2.2. Urinalysis was positive. SHE HAS MULTIPLE DRUG ALLERGIES. Was given daptomycin and Azactam. Currently resting comfortably and hemodynamically stable. Complains of headache and neck pain but able to flex her neck. No blurred visions, no earache, no runny nose, no sore throat. She occasionally gets cough, no nausea, no vomiting. She is having diarrhea, history of C. diff in the past but does not smell like C. difficile this time. Bonilla catheter was changed about 2 weeks ago. Mother is in the room helping with history. Admission Exam Per Admitting Provider PHYSICAL EXAMINATION: GENERAL: The patient is of moderate build, patient is thin and frail, not in acute distress. VITAL SIGNS: Temperature 38, pulse 91, respiratory rate 16, blood pressure 104/54, oxygen 96% on room air. HEENT: Pupils equal, round, reactive to light. Oral mucosa moist. NECK: No JVD seen. CARDIOVASCULAR: S1, S2 heard, regular rate and rhythm, no murmur, no gallop. Left-sided A-port seen. RESPIRATORY SYSTEM: Normal AP diameter. No accessory muscle use. No wheezing, no crackles. ABDOMEN: Soft, bowel sounds present. Mild discomfort. No distention. CENTRAL NERVOUS SYSTEM: Alert and awake, able to move her upper extremities. Obeys simple commands. The patient has quadriplegia, but able to move her upper hands. SKIN: Left side sacral wound, stage III decubitus ulcer. No drainage, no erythema seen. Seems to be healing well. Rash seen on the left lower extremity on the posterior aspect and mild rash on the right thigh region. EXTREMITIES: No edema. Erythema on the left leg in the posterior aspect and right thigh region. Principal Diagnosis sepsis CAUTI-POA LLE cellulitis Discharge Exam CONSTITUTIONAL: thin, paraplegia-can move her arms around with some dexterity. NAD EYES: normal conjunctivae, no scleral icterus ENT: external ear and nose normal, MMM RESPIRATORY: clear to auscultation bilaterally, no crackles, rales or wheezes, normal respiratory effort CARDIOVASCULAR: regular rate and rhythm, S1 and 2 heard without murmurs, gallops or rubs, no JVD, no peripheral edema GASTROINTESTINAL: soft, nontender, nondistended. MUSCULOSKELETAL: paraplegia, can move arms around with some dexterity. She can manipulate her cell phone and pull up pictures. SKIN: warm and dry, no rashes on posterior thighs. She has a suture line on her left posterior thigh with some small crusting distally-closed. Ther eis separately a slit-like open wound on her left glute that is not erythematous and that is dry without any drainage. NEUROLOGIC: quadriplegia, normal cognition, normal speech PSYCHIATRIC: alert cooperative and oriented to person, place and time. Discharge Data Allergies Allergy/AdvReac Type Severity Reaction Status Date / Time cefepime Allergy Severe ANAPHYLAXIS Verified 09/29/20 18:45 imipenem Allergy Severe SEIZURE Verified 09/29/20 18:45 fentanyl Allergy Intermediate ITCHY AND Verified 09/29/20 18:45 RASH Penicillins Allergy Intermediate RASH PER Verified 09/29/20 18:45 MOTHER Sulfa (Sulfonamide Allergy Intermediate Rash Verified 09/29/20 18:45 Antibiotics) vancomycin Allergy Intermediate RASH Verified 09/29/20 18:45 levofloxacin Allergy Mild rash Verified 09/29/20 18:45 Consultations 09/29/20 18:38 ED Decision to Admit Stat 09/30/20 08:00 Consult Urology Routine Ordered Studies Laboratory Results WBC 3.73 K/uL (4.8-10.8) L 10/02/20 08:14 RBC 4.07 M/uL (4.2-5.4) L 10/02/20 08:14 Hgb 12.5 g/dL (12.0-16.0) 10/02/20 08:14 Hct 37.1 % (37-47) 10/02/20 08:14 MCV 91.2 fL (80-100) 10/02/20 08:14 MCH 30.7 pg (25-34) 10/02/20 08:14 MCHC 33.7 g/dL (32-36) 10/02/20 08:14 RDW Std Deviation 46.4 fL (36.4-46.3) H 10/02/20 08:14 RDW Coeff of Andres 13.8 % (11.5-14.5) 10/02/20 08:14 Plt Count 125 K/uL (130-400) L 10/02/20 08:14 MPV 10.1 fL (7.4-10.4) 10/02/20 08:14 Immature Gran % (Auto) 0.3 % 10/02/20 08:14 Neut % (Auto) 27.9 % 10/02/20 08:14 Lymph % (Auto) 51.7 % 10/02/20 08:14 [place] % (Auto) 13.9 % 10/02/20 08:14 Eos % (Auto) 5.9 % 10/02/20 08:14 Baso % (Auto) 0.3 % 10/02/20 08:14 Neut # (Auto) 1.04 K/uL (1.4-6.5) L 10/02/20 08:14 Lymph # (Auto) 1.93 K/uL (1.2-3.4) 10/02/20 08:14 [place] # (Auto) 0.52 K/uL (0.11-0.59) 10/02/20 08:14 Eos # (Auto) 0.22 K/uL (0-0.5) 10/02/20 08:14 Baso # (Auto) 0.01 K/uL (0-0.2) 10/02/20 08:14 Immature Gran # (Auto) 0.01 K/uL (0.00-0.02) 10/02/20 08:14 Platelet Estimate Decreased (Normal) L 09/29/20 17:41 RBC Morphology Unremarkable 09/30/20 07:08 Sodium 140 mmol/L (136-145) 10/02/20 08:14 Potassium 4.1 mmol/L (3.5-5.1) 10/02/20 08:14 Chloride 109 mmol/L (98-107) H 10/02/20 08:14 Carbon Dioxide 28 mmol/L (21-32) 10/02/20 08:14 Anion Gap 3.0 (3-11) 10/02/20 08:14 BUN 6 mg/dl (7-18) L 10/02/20 08:14 Creatinine 0.19 mg/dl (0.6-1.2) L 10/02/20 08:14 Est Cr Clr Drug Dosing 371.4 ml/min 10/02/20 08:14 Est GFR ( Amer) > 150.0 10/02/20 08:14 Est GFR (Non-Af Amer) > 150.0 10/02/20 08:14 BUN/Creatinine Ratio 33.0 (10-20) H 10/02/20 08:14 Glucose 90 mg/dl (70-99) 10/02/20 08:14 Lactate 1.2 mmol/L (0.4-2.0) 09/29/20 20:03 Calcium 8.9 mg/dl (8.5-10.1) 10/02/20 08:14 Magnesium 1.8 mg/dl (1.8-2.4) 09/30/20 07:08 Total Bilirubin 0.3 mg/dl (0.2-1) 10/02/20 08:14 AST 21 U/L (15-37) 10/02/20 08:14 ALT 26 U/L (12-78) 10/02/20 08:14 Alkaline Phosphatase 82 U/L (45-117) 10/02/20 08:14 Total Protein 6.3 gm/dl (6.4-8.2) L 10/02/20 08:14 Albumin 3.0 gm/dl (3.4-5.0) L 10/02/20 08:14 Globulin 3.3 gm/dl (2.5-4.0) 10/02/20 08:14 Albumin/Globulin Ratio 0.9 (0.9-2) 10/02/20 08:14 Urine Color Dark Yellow 09/29/20 17:20 Urine Appearance Turbid (Clear) A 09/29/20 17:20 Urine pH 8.0 (4.5-7.5) H 09/29/20 17:20 Ur Specific [place] 1.021 (1.000-1.030) 09/29/20 17:20 Urine Protein 1+ (Negative) H 09/29/20 17:20 Urine Glucose (UA) Negative (Negative) 09/29/20 17:20 Urine Ketones 3+ (Negative) H 09/29/20 17:20 Urine Blood Negative (Negative) 09/29/20 17:20 Urine Nitrite Positive (Negative) A 09/29/20 17:20 Urine Bilirubin Negative (Negative) 09/29/20 17:20 Urine Urobilinogen Negative (Negative) 09/29/20 17:20 Ur Leukocyte Esterase 2+ (Negative) H 09/29/20 17:20 Urine WBC (Auto) >30 /hpf (0-5) H 09/29/20 17:20 Urine RBC (Auto) 0-4 /hpf (0-4) 09/29/20 17:20 U Hyaline Cast (Auto) 10-30 /lpf (0-5) H 09/29/20 17:20 U Epithel Cells (Auto) >30 /lpf (0-5) H 09/29/20 17:20 Urine Bacteria (Auto) 3+ (Negative) H 09/29/20 17:20 Triple Phos Crystals Present (None Prsent) A 09/29/20 17:20 Amorphous Sediment Present (None Prsent) A 09/29/20 17:20 Urine Yeast Not Reportable 09/29/20 17:20 Stl C. diff Tox B Gene Negative Cdiff Gene (Neg) 09/30/20 Unknown COVID-19 Eval Order CovFluRsv at [facility] 09/29/20 18:24 SARS-CoV-2 (PCR) NEGATIVE (Negative) 09/29/20 18:24 Influenza Type A (PCR) Negative (Neg) 09/29/20 18:24 Influenza Type B (PCR) Negative (Neg) 09/29/20 18:24 RSV (RT-PCR) Negative (Neg) 09/29/20 18:24 Impressions Chest X-Ray 09/29/20 17:27 XR chest 1V portable HISTORY: 29 years-old Female Fever acute fever COMPARISON: Chest radiograph 09/17/2020 TECHNIQUE: Portable AP view of the chest FINDINGS: Cardiomediastinal and hilar silhouettes are unchanged. No pneumothorax, pleural effusion, airspace consolidation or overt pulmonary edema. Right IJ [id number] catheter distal tip terminates in the expected location of the proximal to mid SVC. Unchanged mild linear bibasilar scarring versus atelectasis. Partially imaged cervical thoracic spinal fusion hardware. IMPRESSION: No acute process. ACT 112: Negative or not required by law. The above report was generated using voice recognition software. It may contain grammatical, syntax or spelling errors. Electronically signed by: Cameron Dickson M.D. 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 She presented with an indwelling Bonilla and was found to have pansensitive Proteus in her urine, likely a result of the indwelling Bonilla. She also had erythema in the posterior aspect of the right and left thighs. She recently was hospitalized for an MSSA infection. She was treated with daptomycin and Azactam and subsequently switched to IV cefazolin on 10/01. She continued to improve with treatment and blood cultures were negative at time of discharge. She has a known Stage IV pressure ulcer of the glute and a h/o chronic osteomyelitis in this area, present on admission, and has been followed for the past year in the wound clinic, currently undergoing hyperbaric treatment with improvement. At time of discharge she was hemodynamically stable and afebrile and tolerating p.o. She was mentating at baseline and sent home in sta ble condition on oral antibiotics. Of note urology was consulted while she was admitted as she has a history of bladder stones. Outpatient cystolitholopaxy will be scheduled in the next coming weeks. Close primary care follow-up is recommended. Total Time Total Time Spent Total Time Spent (In Minutes): 60 Total Time Includes: Examination of the Patient, Discharge Planning, Medication Reconciliation and Communication With Other Providers Discharge Plan Discharge Items Patient Disposition: Home - Self-Care Reason For Visit: FEVER Discharge Diagnosis: sepsis CAUTI-POA LLE cellulitis Condition on Discharge: Good Activity: Resume your previous activity Non-emergency contact: Primary Care Provider Call non-emergency contact if: you have any medication questions, your symptoms worsen, your pain is not controlled, your pain is worsening, your pain is unusual for you, your pain is concerning for you and you have a fever Follow-up/Referrals: Wade Lacy MD [Primary Care Provider] - (Date & Time 10/08/2020 3:20 PM Provider Wade Lacy MD Department [facility] ) Diet: Regular Addtl Attending Provider Instructions: Please take all medications as instructed on discharge list below. It is recommended that you follow-up with your primary care doctor within 1 week of discharge to ensure you are still doing well on the antibiotic and your rash and wound are looking well. Please continue your follow-up with wound care as scheduled. You should be fine to proceed with your second Covid 19 vaccination as scheduled. It was a pleasure taking care of you! Please call if you have any questions or problems. You can reach a [facility] hospitalist on duty at [facility] 24 hours a day by calling [phone]. Take care of yourself. Erin Santiago, [facility] Center[facility] Pending Studies at Discharge: No Stand-Alone Forms: My [facility] Medications and DC Order Prescriptions: New cephalexin 500 mg capsule 500 mg PO Q6H Qty: 28 RF: 0 Continued oxycodone-acetaminophen [Percocet] 7.5-325 mg tablet 1 tab PO Q6H PRN (Reason: Pain) RF: 0 cyclobenzaprine 5 mg tablet 5 mg PO TID PRN (Reason: Muscle Spasm) RF: 0 Renacidin 1,980.6 mg-59.4 mg-980.4mg/30mL solution 30 ml irrigation 3XWK Qty: 900 RF: 0 ascorbic acid (vitamin C) 1,000 mg Tablet 1 g PO Q12 RF: 0 dantrolene 100 mg Capsule 100 mg PO TID RF: 0 buspirone 10 mg Tablet 10 mg PO BID RF: 0 docusate sodium 100 mg Tablet 100 mg PO BID RF: 0 lorazepam 0.5 mg Tablet 0.5 mg PO Q8 PRN (Reason: Anxiety) RF: 0 fluticasone propionate 50 mcg/actuation [place],Suspension 2 spray INTRANASAL QAM PRN (Reason: allergies) RF: 0 methenamine hippurate [Hiprex] 1 gram Tablet 1 g PO BID RF: 0 mirtazapine 15 mg Tablet 7.5 mg PO HS RF: 0 zolpidem 5 mg Tablet 5 mg PO HS PRN (Reason: Sleep) RF: 0 Xarelto 20 mg Tablet 20 mg PO QAM RF: 0 duloxetine [Cymbalta] 60 mg capsule,delayed release(DR/EC) 60 mg PO BID RF: 0 nystatin 100,000 unit/gram Powder 1 applic TOPICAL BID PRN (Reason: Skin Irritation) RF: 0 guaifenesin [Mucinex] 600 mg Tablet Extended Release 12hr 600 mg PO Q12H RF: 0 baclofen 20 mg tablet 20 mg PO QID RF: 0 gabapentin 600 mg tablet 600 mg PO QID RF: 0 baclofen 10 mg tablet 10 mg PO QID RF: 0 gabapentin 300 mg capsule 300 mg PO QID RF: 0 docusate sodium [Enemeez] 283 mg/5 mL Enema 283 mg SC HS RF: 0 melatonin 3 mg Tablet 3 mg PO HS PRN (Reason: Insomnia) RF: 0 sodium chloride 1 gram tablet 2 g PO TID RF: 0 lamotrigine 25 mg tablet 50 mg PO HS RF: 0 oxybutynin chloride 5 mg Tablet 5 mg PO Q6H PRN (Reason: Bladder Spasms) RF: 0 potassium chloride 10 mEq capsule, extended release 10 meq PO BID RF: 0 Discharge Orders: Discharge Order (Routine); Ordered 10/02/20 Ordered By: Erin Santiago Admission Data Admit Date/Time: 09/29/20 20:21 Attending Provider: Erin Santiago Admit Provider: Neeraj Dave Primary Care Provider: Wade Lacy Other Providers: Neeraj Dave ; Andrew Bland
== END 2020-10-02 17:33 | disposition home or self-care (01) | DRG 871 ==
LOC: ED 16:52 → 2S 20:21 → SUATTDRO 20:21 → 2S 21:23 → 2W 09-30 04:08
DX: V89.2XXS Person injured in unspecified motor-vehicle accident, traffic, sequela; F41.1 Generalized anxiety disorder; R51.9 Headache, unspecified; L89.153 Pressure ulcer of sacral region, stage 3; M54.2 Cervicalgia; Z79.899 Other long term (current) drug therapy; Z86.718 Personal history of other venous thrombosis and embolism; G82.50 Quadriplegia, unspecified; Z88.0 Allergy status to penicillin; Y73.2 Prosthetic and other implants, materials and accessory gastroenterology and urology devices associated with adverse incidents; L03.116 Cellulitis of left lower limb; A41.59 Other Gram-negative sepsis; Z87.891 Personal history of nicotine dependence; Z96.0 Presence of urogenital implants; Z79.01 Long term (current) use of anticoagulants; Z88.5 Allergy status to narcotic agent; S14.9XXS Injury of unspecified nerves of neck, sequela; T83.511A Infection and inflammatory reaction due to indwelling urethral catheter, initial encounter; Z88.2 Allergy status to sulfonamides; Z86.19 Personal history of other infectious and parasitic diseases; S12.300S Unspecified displaced fracture of fourth cervical vertebra, sequela; S12.400S Unspecified displaced fracture of fifth cervical vertebra, sequela; N31.8 Other neuromuscular dysfunction of bladder; Z98.1 Arthrodesis status; M86.68 Other chronic osteomyelitis, other site; Z88.1 Allergy status to other antibiotic agents; S12.500S Unspecified displaced fracture of sixth cervical vertebra, sequela; Z87.442 Personal history of urinary calculi; N39.0 Urinary tract infection, site not specified; F32.9 Major depressive disorder, single episode, unspecified; Z87.440 Personal history of urinary (tract) infections; I95.89 Other hypotension

== ENCOUNTER 2021-06-16 08:04 | Observation (INO) ==
--- NOTE | 2021-06-13 11:21 | Anesthesiology Consultation ---
Date of Service June 13, 2021 Assessment & Plan (1) Encounter for pre-operative examination: Chart Review Chart Review: Acceptable Risk for Surgery and Patient NOT seen in Pre Admission Testing - Check test AM DOS Pt on Dantrolene TID- due to paraplegia - pt will continue taking as directed Per nursing assessment 06/13/2021, patient denies any recent travel. No known COVID infection in the past 90 days. Patient is fully vaccinated for COVID. No known Covid positive exposures or Covid related symptoms. Preop Covid testing 06/11/21= negative. Covid test will be five days old by DOS/pt also 23 hour observation- will order Luna test for DOS. Cystolithopaxy, Botox bladder injection 10/10/20= Done under MAC Cystolitholopaxy, Botox injection, left buttocks wound 10/16/2019 = done under GA with grade 1 view with MAC #3. DVL x1 atraumatic. History Surgery Operation Date: 04/14/21 07:30 Proposed Procedures p Wound Debridement of Pressure Ulcer of Left Buttock with VY Hamstring Flap - Roz Summers MD Operation Date: 06/16/21 09:50 Proposed Procedures p Debridement of Stage 4 Ischial Pressure Ulcer with Hamstring Flap Closure - Roz Summers MD Height/Weight Height: 5 ft 9 in Weight: 58.967 kg Allergies Allergy/AdvReac Type Severity Reaction Status Date / Time cefepime Allergy Severe ANAPHYLAXIS Verified 06/13/21 11:14 imipenem Allergy Severe SEIZURE Verified 06/13/21 11:14 fentanyl Allergy Intermediate ITCHY AND Verified 06/13/21 11:14 RASH vancomycin Allergy Intermediate RASH Verified 06/13/21 11:14 levofloxacin Allergy Mild rash Verified 06/13/21 11:14 Medications Home Medications Medication Instructions Recorded Confirmed Last Taken ascorbic acid (vitamin C) 1,000 mg 1 g PO Q12 03/07/18 06/13/21 01/07/21 tablet buspirone 10 mg tablet 10 mg PO BID 03/07/18 06/13/21 01/07/21 dantrolene 100 mg capsule 100 mg PO TID 03/07/18 06/13/21 01/07/21 docusate sodium 100 mg tablet 100 mg PO BID 03/07/18 06/13/21 01/07/21 fluticasone propionate 50 2 spray INTRANASAL QAM PRN 03/07/18 06/13/21 12/25/18 mcg/actuation nasal spray,suspension lorazepam 0.5 mg tablet 0.5 mg PO Q8 PRN 03/07/18 06/13/21 11/17/18 methenamine hippurate 1 gram 1 g PO BID 03/07/18 06/13/21 01/07/21 tablet (Hiprex) mirtazapine 15 mg tablet 7.5 mg PO HS 03/07/18 06/13/21 01/06/21 rivaroxaban 20 mg tablet (Xarelto) 20 mg PO QAM 03/07/18 06/13/21 01/07/21 zolpidem 5 mg tablet 5 mg PO HS PRN 03/07/18 06/13/21 10/09/20 21:00 nystatin 100,000 unit/gram topical 1 applic TOPICAL BID PRN 03/18/18 06/13/21 04/04/18 12:00 powder guaifenesin 600 mg tablet, 600 mg PO Q12H 04/06/18 06/13/21 01/07/21 extended release 12 hr (Mucinex) baclofen 20 mg tablet 20 mg PO QID 12/28/18 06/13/21 01/07/21 duloxetine 60 mg capsule,delayed 60 mg PO BID cap 02/02/19 06/13/21 01/07/21 release (Cymbalta) gabapentin 600 mg tablet 600 mg PO QID tab 02/02/19 06/13/21 01/07/21 melatonin 3 mg tablet 3 mg PO HS PRN 08/13/19 06/13/21 10/09/20 21:00 baclofen 10 mg tablet 10 mg PO QID 09/25/19 06/13/21 01/07/21 docusate sodium 283 mg/5 mL enema 283 mg NC HS 09/25/19 06/13/21 01/06/21 (Enemeez) gabapentin 300 mg capsule 300 mg PO QID 09/25/19 06/13/21 01/07/21 cyclobenzaprine 5 mg tablet 5 mg PO TID PRN 11/16/19 06/13/21 Unknown oxybutynin chloride 5 mg tablet 5 mg PO Q6H PRN 08/24/20 06/13/21 Unknown potassium chloride 10 mEq 10 meq PO BID 09/29/20 06/13/21 01/07/21 capsule,extended release acetaminophen 500 mg tablet 1,000 mg PO Q6H PRN 01/07/21 06/13/21 01/07/21 (Tylenol Extra Strength) epinephrine 0.3 mg/0.3 mL 0.3 mg IM ONCE PRN #1 ea 01/07/21 06/13/21 Unknown injection, auto-injector (EpiPen 2-Fam) oxycodone-acetaminophen 10 mg-325 1 tab PO Q6 PRN 01/07/21 06/13/21 Unknown mg tablet hydroxyzine HCl 25 mg tablet 25 mg PO .qhs #30 tab 01/08/21 06/13/21 Unknown morphine 15 mg tablet,extended 15 mg PO Q12H 03/27/21 06/13/21 Unknown release citric ac 1980.6 mg-glucono 59.4 30 ml IRRIGATION 3XWK #900 ml 05/14/21 06/13/21 Unknown mg-mag carb 980.4 mg/30 mL irrig.soln (Renacidin) Past Medical History Medical History (Updated 06/13/21 @ 12:16 by Desiree Lorenz PA-C) Anxiety and depression Autonomic dysreflexia Bladder stones Chronic hypotension Chronic osteomyelitis Of sacrum with chronic ulceration, being treated by wound clinic. Environmental allergies Bonilla catheter in place History of DVT (deep vein thrombosis) "UPPER EXTREMITY"- ON XARELTO (NO FURTHER DETAILS) - cause unknown History of seizure 2013 - due to BP issue - none since > Hx of pneumothorax Hx with chest tube. Treated at [facility]> 6 ys ago Paraplegia Port-A-Cath in place 06/15/18= A-PORT REPOSITION= MAC SEDATION AT [facility]. 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 Follows with wound clinic- currently undergoing hyperbaric oxygen treatments Ulcer of genital labia Due to Bonilla catheter- has appt in Jul 2021 with specialist to discuss possible subrapubic catheter Past Family History Family History Father Diabetes Brother Depression Other No family history of adverse response to anesthesia Past Surgical History Surgical History History of appendectomy History of bowel resection 2/2 OBSTRUCTION/SCAR TISSUE History of myringotomy BILAT History of urostomy SUBSEQUENT REMOVAL Hx of tracheostomy SINCE REMOVED Hx of wisdom tooth extraction PEG (percutaneous endoscopic gastrostomy) status SUBSEQUENT REMOVAL S/P cystoscopy with botox injections S/P flap graft S/P spinal fusion ACDF "C5-C7, C3-T2" S/P thoracentesis Status post amputation of toe second toe, right foot. 07/2019. Status post debridement LEFT ISCHIAL ULCER DEBRIDEMENT/PLACEMENT OF WOUND VAC= 03/14/18= LMA #4 Status post debridement (~07/2018) left ischial ulcer debridement with flap 07/2018: MAC#3, ETT#7.0, Grade 2 View Status post debridement buttock wound 10/16/1920 Grade 1 view with Mac 3 blade Social History Smoking Status: Never smoker tobacco type: cigarettes Smoking cigarettes per day: HX 1/2 PPD PER RECORDS Hx Alcohol Use: No Alcohol type: beer, wine and hard liquor alcohol intake frequency: holidays/special occasions only Hx Substance Use: Yes substance use type: prescription drug Lab Results Anesthesia Preop Results Results Anesthesia Widget: WBC 5.24 K/uL (4.8-10.8) 06/11/21 Hgb 13.0 g/dL (12.0-16.0) 06/11/21 Hct 40.5 % (37-47) 06/11/21 Plt 136 K/uL (130-400) 06/11/21 Na 138 mmol/L (136-145) 06/11/21 K 4.0 mmol/L (3.5-5.1) 06/11/21 Cl 105 mmol/L (98-107) 06/11/21 CO2 26 mmol/L (21-32) 06/11/21 BUN 9 mg/dl (6-23) 06/11/21 Creat 0.31 mg/dl (0.6-1.2) L 06/11/21 Glucose Level 119 mg/dl (70-99) H 06/11/21 PT 11.4 Seconds (9.0-12.0) 06/11/21 PTT 31.8 Seconds (21.0-31.0) H 06/11/21 INR 1.1 (0.9-1.1) 06/11/21 Testing Electrocardiogram Date: 04/28/21 Findings: + NSR @ (77bpm) Biatrial enlargement. Rightward axis. When compared to EKG from October 03, 2020- QT has lengthened per cardio Chest X-Ray Date: 10/03/20 Findings: + NAD Right IJ [id number] catheter distal tip terminates in the expected location of the proximal to mid SVC. Unchanged mild linear bibasilar scarring versus atelectasis.
--- NOTE | 2021-06-16 10:08 | History & Physical Bridge Note ---
Date of Service June 16, 2021 History & Physical Bridge Note I have examined the patient, reviewed the History & Physical and in the interval since the performance of the History & Physical I have noted the following changes of clinical significance: no changes noted
[2021-06-16] MEDS ORDERED: GELATIN SPONGE SZ 100 ONE (10:26)
[2021-06-16] MEDS ORDERED: THROMBIN 5000 UNITS KIT ONE (10:26)
[2021-06-16] MEDS ORDERED: LIDOCAINE/EPINEPHRINE 1% 20 ML VIAL ONE (10:36)
[2021-06-16] MEDS ORDERED: METHYLENE BLUE 0.5% 10 ML VIAL ONE (11:19)
[2021-06-16] MEDS ORDERED: HYDROmorphone INJ 2 MG/ML SYR/VIAL IV PRN (11:28)
[2021-06-16] MEDS ORDERED: ONDANSETRON INJ 2 MG/ML 2 ML VIAL IV PRN (11:28)
[2021-06-16] MEDS ORDERED: ePHEDrine sulfate 50 MG/ML AMP IV PRN (11:28)
[2021-06-16] MEDS ORDERED: ATROPINE SULFATE 0.1 MG/ML 10ML SYR IV PRN (11:28)
[2021-06-16] MEDS ORDERED: DAPTOmycin 350 MG in SYRINGE 0 ML IV ONE (11:30)
[2021-06-16] MEDS ORDERED: FLOSEAL HEMOSTATIC MATRIX 10ML TOP ONE (12:15)
--- NOTE | 2021-06-16 13:52 | Post Operative Brief Note ---
PG Immediate Post Op with CF Date of Surgery June 16, 2021 Pre & Post Diagnosis Operation Date: 04/14/21 07:30 <No data on this case meets the specified criteria> Operation Date: 06/16/21 09:50 Pre-Op Diagnosis: Stage IV Pressure Ulcer of Left Buttock Post-Op Diagnosis: Stage IV Pressure Ulcer of Left Buttock I identified the patient and participated in the time-out.: Yes Procedure Operation Date: 04/14/21 07:30 <No data on this case meets the specified criteria> Operation Date: 06/16/21 09:50 Actual Procedures p Debridement of Stage 4 Ischial Pressure Ulcer with Hamstring Flap Closure(Left) - Roz Summers MD Surgeon Roz Summers MD Ge[employer] Computer No Dennison PA-C Estimated Blood Loss 25 Findings Consistent with Post-Op Diagnosis Specimens Specimen Description: A.) product of debridement left ishium B.) left posterior thigh scar Culture Set #1 Bone left ishium. Aero/Gisell Culture & Gram Stain Routine Buttock,Left Drains Bonilla Catheter and Caleb-Russo Drain (15 fr oanh x2)
[2021-06-16] MEDS: fentaNYL citrate 100 MCG/2 ML VIAL IV PRN ×4 (14:18→16:18)
--- NOTE | 2021-06-16 14:35 | Operative Report ---
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 I identified the patient and participated in the time-out.: Yes Procedure Operation Date: 04/14/21 07:30 <No data on this case meets the specified criteria> Operation Date: 06/16/21 09:50 Actual Procedures p Debridement of Stage 4 Ischial Pressure Ulcer with Hamstring Flap Closure(Left) - Roz Summers MD Surgeon Roz Summers MD [facility] Treater No Dennison PA-C Estimated Blood Loss 25 Findings Consistent with Post-Op Diagnosis Specimens Products of debridement of left ischium and bone culture Drains [id number] Anesthesia Type General Complications none Indications Patient is a 30-year-old incomplete quadriplegic with history of left ischial ulcers. Previously healed 1 ulceration nonsurgically, about 3 years ago underwent VY hamstring flap closure, which initially was successful, but patient developed recurrent ulceration about 2 months postoperatively. At that time, we elected to proceed with nonsurgical management, followed by debridement and wound VAC placement. Wound has stalled, has been treated with multiple wound healing modalities, IV antibiotics, and hyperbaric oxygen. We initially postponed her advancement of the flap due to her school schedule, plans to proceed in March but surgery was canceled due to COVID-19 pandemic. Description of Procedure The risks, benefits, alternatives of procedure were explained to the patient and her mother who agreed and signed consent. She was brought to the operating room, placed under general anesthesia, positioned prone and jackknife. Timeout procedure was performed. The planned incisions were marked. This included the prior scar from her left VY hamstring posterior thigh flap as well as the wound margins. Additionally, she did have an epidermal inclusion cyst along the medial aspect of the VY incision which could become inflamed and required incision and drainage. I incorporated excision of the cyst within my incision line. The left ischial pseudobursa was stained using methylene blue dye. 1% lidocaine with epinephrine was used to anesthetize the debridement site. A 10 blade scalpel and electrocautery was used to completely excise the wound including scarred skin edges down to underlying bone. Of note, there was a significant amount of soft tissue over the underlying bone and this was able to be excised using electrocautery. No fistulas or tunneling was noted. Bone was examined, noted to have some soft spots and also some irregularity consistent with osteomyelitis and pressure points.An osteotome was used to perform ostectomy to relieve pressure points, and then resect bone to be sent for culture. Perioperative antibiotics were held until bone culture was obtained. A rongeur was used to further contour the bone and following this the bone did feel smooth, firm. Gelfoam and thrombin combined with electrocautery were used to achieve hemostasis. Post wound excision measurements were 5x2.5 cm. Wound edges were undermined to release gluteus zane superiorly about 4 cm, and inferiorly to release the semimembranosus, semitendinosus and biceps femoris muscles and facilitate advancement. The flap incisions were then made using 15 blade scalpel. I did separately excise small epidermal inclusion cyst measuring about 1 cm as well as some dilated pores along the wide portion and left lateral incision. The incision was deepened through dermis into underlying subcutaneous fat down to fascia. Hamstring musculature was identified inferiorly along with some associated scarring from prior advancement. Muscles were released using electrocautery to facilitate advancement. Gelfoam was removed, Floseal was used to provide additional hemostasis. 2 15 Amharic MANJIT drains were placed, one along the left lateral side of the incision extending into the wound bed, and the other along the left medial aspect of the incision. At this point, the flap was advanced into the left ischial defect, suturing of the hamstring musculature to the gluteus zane muscle and completely covering the underlying bone. Tension free closure was able to be obtained. Inset was performed using 2-0 Vicryl interrupted sutures. 2-0 Vicryl deep dermal sutures were then placed along this portion of the incision as well. The wounds were reapproximated using 2-0 Vicryl deep dermal suture, 3-0 Vicryl superficial dermal suture, armin. Drains were sutured into place using 2-0 nylon suture. Provena wound vac was placed to the wound. The procedure was tolerated well. Estimated blood loss 25 cc. She was transferred to the recovery room in satisfactory condition. No Dennison PA-C was present and scrubbed throughout the entire procedure, assisted in retraction and simultaneous wound closure. I attest to the content of the Intraoperative Record and any orders documented therein. Any exceptions are noted below.
--- NOTE | 2021-06-16 14:40 | Anesthesiology Progress Note ---
Date of Service June 16, 2021 Anesthesia Post Procedure Vital Signs Vital Signs: Temp Pulse Pulse Resp BP Pulse Ox 06/16/21 14:20 68 17 123/77 96 06/16/21 14:10 71 13 123/94 98 06/16/21 14:01 36.0 C L 90 12 132/94 98 06/16/21 08:54 36.6 C 61 20 105/68 95 Pain Intensity Left Buttock: Pain Intensity: 2 Transfer of Care Handoff Completed per policy Notes Mental Status: alert / awake / arousable Patient Amnestic to Procedure: Yes Nausea / Vomiting: adequately controlled Pain: adequately controlled Airway Patency, RR, SpO2: stable & adequate BP & HR: stable & adequate Hydration State: stable & adequate Anesthetic Complications: no major complications apparent and Pt Satisfied with anesthetic care
[2021-06-16] MEDS ORDERED: NYSTATIN POWDER 15GM BTL EXT PRN (17:02)
[2021-06-16] MEDS ORDERED: ZOLPIDEM TARTRATE 5 MG TAB PO PRN (17:02)
[2021-06-16] MEDS ORDERED: OXYBUTYNIN CHLORIDE 5 MG TAB PO PRN (17:02)
[2021-06-16] MEDS ORDERED: ACETAMINOPHEN 500 MG TAB PO PRN (17:02)
[2021-06-16] MEDS ORDERED: MELATONIN 3 MG TAB PO PRN (17:02)
[2021-06-16] MEDS ORDERED: CYCLOBENZAPRINE HCL 5 MG TAB PO PRN (17:02)
[2021-06-16] MEDS ORDERED: LORazepam 0.5 MG TAB PO PRN (17:02)
[2021-06-16] MEDS ORDERED: FLUTICASONE PROPIONATE NA SPR 16 GM BTL PRN (17:02)
[2021-06-16] MEDS ORDERED: hydrOXYzine HCl 25 MG TAB PO SCH (17:02)
[2021-06-16] MEDS ORDERED: EPINEPHrine INJ 1 MG/ML AMP IM PRN (18:18)
[2021-06-16] MEDS: MoRPHine SULFATE CR 15 MG TABCR PO SCH (18:22)
[2021-06-16] MEDS: D5W AND 1/2NSS + 20MEQ KCL 20 MEQ/1,000 ML BAG IV SCH (18:26)
--- NOTE | 2021-06-16 19:21 | Hospitalist Consultation ---
Date of Consultation June 16, 2021 Assessment & Plan (1) Pressure ulcer: -POD #0 debridement of Stage 4 Ischial Pressure Ulcer with Hamstring Flap Closure today by Dr. Summers -Postop management as per reconstructive surgery -Currently on IV daptomycin -ID consult placed by reconstructive surgery for chronic osteomyelitis (2) Labia irritation: -Per Dr. 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 Summers (3) History of DVT (deep vein thrombosis): -Continue Xarelto (4) Depression: (5) Anxiety: -Stable, continue home meds (6) Neurogenic dysfunction of the urinary bladder: (7) Quadriplegia: -Has chronic Bonilla -Continue home pain medications (8) DVT prophylaxis: -On Xarelto Thank you for this consultation. We will follow the patient with you during their hospital stay. You can reach a member of the [facility] Hospitalist Team 21/12 via the [facility] Hospitalist role in [place] [employer]. Supervising Physician Co-Signing Physician Notes 30-year-old female with PMH cervical spine injury with quadriplegia, neurogenic bladder, history of DVT 3 times in past on Xarelto, recurrent/chronic pressure ulcers, anxiety, depression who is s/p Debridement of Stage 4 Ischial Pressure Ulcer with Hamstring Flap Closure 06/[address] Summers is a medical consult. Pt is doing well, would like her pain meds be started as she is having pain. Other ROS neg. Of note, pt quit smoking 10 years ago (smoked for 4 years prior to that). A n P as above. Upon Exam GENERAL: Alert and oriented x3. NAD, on RA. HEENT: No pallor, no icterus. Pupils equal, round and reactive to light. Oral mucosa moist. NECK: No JVD, no neck masses. HEART: S1 and S2 heard. Regular rate and rhythm. No murmur, no gallop. RESPIRATORY SYSTEM: Normal AP diameter. No accessory muscle use. No wheezing, no crackles. ABDOMEN: Soft, bowel sounds present, nontender, no distention. CENTRAL NERVOUS SYSTEM: No facial droop. Speech is clear. Obeys simple commands. Moves extremities. EXTREMITIES: No edema, no erythema seen. quadriplegic (partial BUE paresis) Bonilla in situ, yellow urine collection noted. I have seen and examined the patient and have discussed the case with the provider above. I agree with the assessment and plan as stated. History of Present Illness Reason for Consultation: Postop medical management Requesting Physician: Dr. Summers Attending Physician: Roz Summers MD History of Present Illness 30-year-old female with PMH cervical spine injury with quadriplegia, neurogenic bladder, history of DVT anticoagulated on Xarelto, recurrent/chronic pressure ulcers, anxiety, depression, and other problems listed below who is s/p Debridement of Stage 4 Ischial Pressure Ulcer with Hamstring Flap Closure today by Dr. Summers. Postoperatively, the patient is doing well. She reports her pain is well controlled. She denies chest pain or shortness of breath. No abdominal pain or nausea. Bonilla catheter is in place draining clear yellow urine. Patient is hemodynamically stable. Allergies Allergy/AdvReac Type Severity Reaction Status Date / Time cefepime Allergy Severe ANAPHYLAXIS Verified 06/13/21 11:14 imipenem Allergy Severe SEIZURE Verified 06/13/21 11:14 fentanyl Allergy Intermediate ITCHY AND Verified 06/13/21 11:14 RASH vancomycin Allergy Intermediate RASH Verified 06/13/21 11:14 levofloxacin Allergy Mild rash Verified 06/13/21 11:14 Home Medications Medication Instructions Recorded Confirmed Type ascorbic acid (vitamin C) 1,000 mg 1 g PO Q12 03/07/18 06/13/21 History tablet buspirone 10 mg tablet 10 mg PO BID 03/07/18 06/13/21 History dantrolene 100 mg capsule 100 mg PO TID 03/07/18 06/13/21 History docusate sodium 100 mg tablet 100 mg PO BID 03/07/18 06/13/21 History fluticasone propionate 50 2 spray INTRANASAL QAM PRN 03/07/18 06/13/21 History mcg/actuation nasal spray,suspension lorazepam 0.5 mg tablet 0.5 mg PO Q8 PRN 03/07/18 06/13/21 History methenamine hippurate 1 gram 1 g PO BID 03/07/18 06/13/21 History tablet (Hiprex) mirtazapine 15 mg tablet 7.5 mg PO HS 03/07/18 06/13/21 History rivaroxaban 20 mg tablet (Xarelto) 20 mg PO QAM 03/07/18 06/13/21 History zolpidem 5 mg tablet 5 mg PO HS PRN 03/07/18 06/13/21 History nystatin 100,000 unit/gram topical 1 applic TOPICAL BID PRN 03/18/18 06/13/21 History powder guaifenesin 600 mg tablet, 600 mg PO Q12H 04/06/18 06/13/21 History extended release 12 hr (Mucinex) baclofen 20 mg tablet 20 mg PO QID 12/28/18 06/13/21 History duloxetine 60 mg capsule,delayed 60 mg PO BID cap 02/02/19 06/13/21 History release (Cymbalta) gabapentin 600 mg tablet 600 mg PO QID tab 02/02/19 06/13/21 History melatonin 3 mg tablet 3 mg PO HS PRN 08/13/19 06/13/21 History baclofen 10 mg tablet 10 mg PO QID 09/25/19 06/13/21 History docusate sodium 283 mg/5 mL enema 283 mg NM HS 09/25/19 06/13/21 History (Enemeez) gabapentin 300 mg capsule 300 mg PO QID 09/25/19 06/13/21 History cyclobenzaprine 5 mg tablet 5 mg PO TID PRN 11/16/19 06/13/21 History oxybutynin chloride 5 mg tablet 5 mg PO Q6H PRN 08/24/20 06/13/21 History potassium chloride 10 mEq 10 meq PO BID 09/29/20 06/13/21 History capsule,extended release acetaminophen 500 mg tablet 1,000 mg PO Q6H PRN 01/07/21 06/13/21 History (Tylenol Extra Strength) epinephrine 0.3 mg/0.3 mL 0.3 mg IM ONCE PRN #1 ea 01/07/21 06/13/21 Rx injection, auto-injector (EpiPen 2-Fam) oxycodone-acetaminophen 10 mg-325 1 tab PO Q6 PRN 01/07/21 06/13/21 History mg tablet morphine 15 mg tablet,extended 15 mg PO Q12H 03/27/21 06/13/21 History release citric ac 1980.6 mg-glucono 59.4 30 ml IRRIGATION 3XWK #900 ml 05/14/21 06/13/21 Rx mg-mag carb 980.4 mg/30 mL irrig.soln (Renacidin) Patient History Medical History Anxiety and depression Autonomic dysreflexia Bladder stones Chronic hypotension Chronic osteomyelitis Of sacrum with chronic ulceration, being treated by wound clinic. Environmental allergies Bonilla catheter in place History of DVT (deep vein thrombosis) "UPPER EXTREMITY"- ON XARELTO (NO FURTHER DETAILS) - cause unknown History of seizure 2013 - due to BP issue - none since > Hx of pneumothorax Hx with chest tube. Treated at [facility]> 6 ys ago Paraplegia Port-A-Cath in place 06/15/18= A-PORT REPOSITION= MAC SEDATION AT [facility]. 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 Follows with wound clinic- currently undergoing hyperbaric oxygen treatments Ulcer of genital labia Due to Bonilla catheter- has appt in Jul 2021 with specialist to discuss possible subrapubic catheter Surgical History History of appendectomy History of bowel resection 2/2 OBSTRUCTION/SCAR TISSUE History of myringotomy BILAT History of urostomy SUBSEQUENT REMOVAL Hx of tracheostomy SINCE REMOVED Hx of wisdom tooth extraction PEG (percutaneous endoscopic gastrostomy) status SUBSEQUENT REMOVAL S/P cystoscopy with botox injections S/P flap graft S/P spinal fusion ACDF "C5-C7, C3-T2" S/P thoracentesis Status post amputation of toe second toe, right foot. 07/2019. Status post debridement LEFT ISCHIAL ULCER DEBRIDEMENT/PLACEMENT OF WOUND VAC= 03/14/18= LMA #4 Status post debridement (~07/2018) left ischial ulcer debridement with flap 07/2018: MAC#3, ETT#7.0, Grade 2 View Status post debridement buttock wound 10/16/1920 Grade 1 view with Mac 3 blade Family History Father Diabetes Brother Depression Other No family history of adverse response to anesthesia Social History Smoking Status: Never smoker Tobacco Type: Cigarettes Second Hand Exposure: No; Hx Alcohol Use: Yes Alcohol type: beer, wine and hard liquor Hx Substance Use: No Preferred Language: Macedonian Communication Ability: Effective Visual Impairment: Limited Hearing Ability: Normal District Associate Judge Required: No Beliefs That Will Affect Care: None marital status: Single Current Living Situation: Family Current Living Situation Comment: Lives with mom, dad and brother current occupational status: disabled How many Children do You have: 0 Feels Safe at Home: Yes Safety Concerns: Feels Safe At This Time Childhood Exposure to Second-Hand Smoke: No Assistive Devices: Glasses and Wheelchair Review of Systems Review of Systems: ROS per HPI, all other systems reviewed and negative Physical Exam Constitutional: WD/WN, vitals as above Eyes: PERRL, conjunctivae normal, anicteric sclerae ENMT: external ear and nose normal, oropharynx normal Respiratory: normal respiratory effort, lungs clear to auscultation Cardiovascular: Rate/Rhythm: regular rate and regular rhythm Vessels: normal peripheral pulses Extremities: no edema Gastrointestinal (Abdomen): normal bowel sounds, soft, nontender, no hepatosplenomegaly Musculoskeletal: Chronic quadriplegia Skin: no rashes, warm and dry Neurologic: PERRL, EOMI, accommodation nl, no face palsy, no dysarthria Psychiatric: A+Ox3, euthymic affect Genitourinary: Bonilla catheter in place draining clear yellow urine Results & Data Results & Data ([facility]) Vital Signs (Past 12 Hours) Vital Signs Temp Pulse Pulse Resp BP Pulse Ox 06/16/21 17:35 36.6 C 56 L 18 136/88 96 06/16/21 16:25 78 16 95 06/16/21 16:10 85 17 122/75 93 06/16/21 15:55 65 16 120/81 95 06/16/21 15:40 84 17 126/89 95 06/16/21 15:25 66 17 115/74 96 06/16/21 15:10 83 15 130/62 93 06/16/21 14:55 75 18 112/60 94 06/16/21 14:40 36.4 C L 69 15 109/59 L 93 06/16/21 14:30 78 14 123/73 95 06/16/21 14:20 68 17 123/77 96 06/16/21 14:10 71 13 123/94 98 06/16/21 14:01 36.0 C L 90 12 132/94 98 06/16/21 08:54 36.6 C 61 20 105/68 95
--- NOTE | 2021-06-16 19:35 | OB/GYN Consultation ---
Date of Consultation June 16, 2021 History of Present Illness Reason for Consultation: Labial ulcer Attending Physician: Roz Summers MD History of Present Illness Patient is seen. She was known to me from before about same problem with chronic labial laceration from chronic use of Bonilla catheter. She just had surgery by Dr. Coffman this afternoon. She states she is very sore and wants to avoid pelvic exam tonight. She prefers tomorrow. Patient did not have any questions or concerns for me. I will sign out to my partner for tomorrow. Allergies Allergy/AdvReac Type Severity Reaction Status Date / Time cefepime Allergy Severe ANAPHYLAXIS Verified 06/13/21 11:14 imipenem Allergy Severe SEIZURE Verified 06/13/21 11:14 fentanyl Allergy Intermediate ITCHY AND Verified 06/13/21 11:14 RASH vancomycin Allergy Intermediate RASH Verified 06/13/21 11:14 levofloxacin Allergy Mild rash Verified 06/13/21 11:14 Home Medications Medication Instructions Recorded Confirmed Type ascorbic acid (vitamin C) 1,000 mg 1 g PO Q12 03/07/18 06/13/21 History tablet buspirone 10 mg tablet 10 mg PO BID 03/07/18 06/13/21 History dantrolene 100 mg capsule 100 mg PO TID 03/07/18 06/13/21 History docusate sodium 100 mg tablet 100 mg PO BID 03/07/18 06/13/21 History fluticasone propionate 50 2 spray INTRANASAL QAM PRN 03/07/18 06/13/21 History mcg/actuation nasal spray,suspension lorazepam 0.5 mg tablet 0.5 mg PO Q8 PRN 03/07/18 06/13/21 History methenamine hippurate 1 gram 1 g PO BID 03/07/18 06/13/21 History tablet (Hiprex) mirtazapine 15 mg tablet 7.5 mg PO HS 03/07/18 06/13/21 History rivaroxaban 20 mg tablet (Xarelto) 20 mg PO QAM 03/07/18 06/13/21 History zolpidem 5 mg tablet 5 mg PO HS PRN 03/07/18 06/13/21 History nystatin 100,000 unit/gram topical 1 applic TOPICAL BID PRN 03/18/18 06/13/21 History powder guaifenesin 600 mg tablet, 600 mg PO Q12H 11/07/18 01/14/22 History extended release 12 hr (Mucinex) baclofen 20 mg tablet 20 mg PO QID 12/28/18 06/13/21 History duloxetine 60 mg capsule,delayed 60 mg PO BID cap 02/02/19 06/13/21 History release (Cymbalta) gabapentin 600 mg tablet 600 mg PO QID tab 02/02/19 06/13/21 History melatonin 3 mg tablet 3 mg PO HS PRN 08/13/19 06/13/21 History baclofen 10 mg tablet 10 mg PO QID 09/25/19 06/13/21 History docusate sodium 283 mg/5 mL enema 283 mg AR HS 09/25/19 06/13/21 History (Enemeez) gabapentin 300 mg capsule 300 mg PO QID 09/25/19 06/13/21 History cyclobenzaprine 5 mg tablet 5 mg PO TID PRN 11/16/19 06/13/21 History oxybutynin chloride 5 mg tablet 5 mg PO Q6H PRN 08/24/20 06/13/21 History potassium chloride 10 mEq 10 meq PO BID 09/29/20 06/13/21 History capsule,extended release acetaminophen 500 mg tablet 1,000 mg PO Q6H PRN 01/07/21 06/13/21 History (Tylenol Extra Strength) epinephrine 0.3 mg/0.3 mL 0.3 mg IM ONCE PRN #1 ea 01/07/21 06/13/21 Rx injection, auto-injector (EpiPen 2-Fam) oxycodone-acetaminophen 10 mg-325 1 tab PO Q6 PRN 01/07/21 06/13/21 History mg tablet morphine 15 mg tablet,extended 15 mg PO Q12H 03/27/21 06/13/21 History release citric ac 1980.6 mg-glucono 59.4 30 ml IRRIGATION 3XWK #900 ml 05/14/21 06/13/21 Rx mg-mag carb 980.4 mg/30 mL irrig.soln (Renacidin) Patient History Medical History Anxiety and depression Autonomic dysreflexia Bladder stones Chronic hypotension Chronic osteomyelitis Of sacrum with chronic ulceration, being treated by wound clinic. Environmental allergies Bonilla catheter in place History of DVT (deep vein thrombosis) "UPPER EXTREMITY"- ON XARELTO (NO FURTHER DETAILS) - cause unknown History of seizure 2013 - due to BP issue - none since > Hx of pneumothorax Hx with chest tube. Treated at [facility]> 6 ys ago Paraplegia Port-A-Cath in place 06/15/18= A-PORT REPOSITION= MAC SEDATION AT [facility]. 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 Follows with wound clinic- currently undergoing hyperbaric oxygen treatments Ulcer of genital labia Due to Bonilla catheter- has appt in Jul 2021 with specialist to discuss possible subrapubic catheter Surgical History History of appendectomy History of bowel resection 2/2 OBSTRUCTION/SCAR TISSUE History of myringotomy BILAT History of urostomy SUBSEQUENT REMOVAL Hx of tracheostomy SINCE REMOVED Hx of wisdom tooth extraction PEG (percutaneous endoscopic gastrostomy) status SUBSEQUENT REMOVAL S/P cystoscopy with botox injections S/P flap graft S/P spinal fusion ACDF "C5-C7, C3-T2" S/P thoracentesis Status post amputation of toe second toe, right foot. 07/2019. Status post debridement LEFT ISCHIAL ULCER DEBRIDEMENT/PLACEMENT OF WOUND VAC= 03/14/18= LMA #4 Status post debridement (~07/2018) left ischial ulcer debridement with flap 07/2018: MAC#3, ETT#7.0, Grade 2 View Status post debridement buttock wound 10/16/1920 Grade 1 view with Mac 3 blade Family History Father Diabetes Brother Depression Other No family history of adverse response to anesthesia Social History Smoking Status: Never smoker Tobacco Type: Cigarettes Second Hand Exposure: No; Hx Alcohol Use: Yes Alcohol type: beer, wine and hard liquor Hx Substance Use: No Preferred Language: Kiswahili Communication Ability: Effective Visual Impairment: Limited Hearing Ability: Normal Swatch Cutter Required: No Beliefs That Will Affect Care: None marital status: Single Current Living Situation: Family Current Living Situation Comment: Lives with mom, dad and brother current occupational status: disabled How many Children do You have: 0 Feels Safe at Home: Yes Safety Concerns: Feels Safe At This Time Childhood Exposure to Second-Hand Smoke: No Assistive Devices: Glasses and Wheelchair Results & Data ([facility]) Vital Signs (Past 12 Hours) Vital Signs Temp Pulse Pulse Resp BP Pulse Ox 06/16/21 17:35 36.6 C 56 L 18 136/88 96 06/16/21 16:25 78 16 95 06/16/21 16:10 85 17 122/75 93 06/16/21 15:55 65 16 120/81 95 06/16/21 15:40 84 17 126/89 95 06/16/21 15:25 66 17 115/74 96 06/16/21 15:10 83 15 130/62 93 06/16/21 14:55 75 18 112/60 94 06/16/21 14:40 36.4 C L 69 15 109/59 L 93 06/16/21 14:30 78 14 123/73 95 06/16/21 14:20 68 17 123/77 96 06/16/21 14:10 71 13 123/94 98 06/16/21 14:01 36.0 C L 90 12 132/94 98 06/16/21 08:54 36.6 C 61 20 105/68 95
[2021-06-16] MEDS: busPIRone 5 MG TAB PO SCH (19:37)
[2021-06-16] MEDS: BACLOFEN 10 MG TAB PO SCH (19:38)
[2021-06-16] MEDS: DULoxetine HCL 60 MG CAP PO SCH (19:38)
[2021-06-16] MEDS: BACLOFEN 20 MG TAB PO SCH (19:39)
[2021-06-16] MEDS: GABAPENTIN 300 MG CAP PO SCH (19:39)
[2021-06-16] MEDS: GABAPENTIN 600 MG TAB PO SCH (19:40)
[2021-06-16] MEDS: DOCUSATE SODIUM 100 MG CAP PO SCH (19:40)
[2021-06-16] MEDS: guaiFENesin 600 MG TABCR PO SCH (19:41)
[2021-06-16] MEDS: MIRTAZAPINE TAB 15 MG TAB PO SCH (21:06)
[2021-06-16] MEDS: POTASSIUM CHLORIDE 10 MEQ TABCR PO SCH (21:07)
[2021-06-16] MEDS: DANTROLENE SODIUM 25 MG CAP PO SCH (21:07)
[2021-06-16] MEDS: METHENAMINE HIPPURATE 1 GM TAB PO SCH (21:08)
[2021-06-16] MEDS: oxyCODONE/ACETAMINOPHEN 10-325 TAB PO PRN (21:11)
[2021-06-16] MEDS ORDERED: COUGH DROP (SUGAR FREE) LOZ 24 LOZ/1 BOX BUCCAL ONE (22:42)
[2021-06-17] MEDS ORDERED: HEPARIN 100 UNIT/ML 5ML FLUSH FLUSH PRN (00:12)
[2021-06-17] MEDS: oxyCODONE/ACETAMINOPHEN 10-325 TAB PO PRN ×3 (04:14→18:28)
[2021-06-17] MEDS: BACLOFEN 20 MG TAB PO SCH ×4 (04:15→21:17)
[2021-06-17] MEDS: BACLOFEN 10 MG TAB PO SCH ×4 (04:16→21:14)
[2021-06-17] MEDS: GABAPENTIN 300 MG CAP PO SCH ×4 (04:16→21:13)
[2021-06-17] MEDS: GABAPENTIN 600 MG TAB PO SCH ×4 (04:16→21:14)
[2021-06-17 05:13] LABS: Hematocrit (blood only) 39.5 % (37-47); Hemoglobin 12.7 g/dL (12.0-16.0); Mean Corpuscular Hemoglobin 29.5 pg (25-34); Mean Corpuscular Hgb Conc 32.2 g/dL (32-36); Mean Corpuscular Volume 91.9 fL (80-100); Mean Platelet Volume 10.5 fL (7.4-10.4); Platelet Count 121 K/uL (130-400); RDW Coefficient of Variation 13.8 % (11.5-14.5); RDW Standard Deviation 45.8 fL (36.4-46.3); White Blood Count 5.11 K/uL (4.8-10.8)
[2021-06-17 05:42] LABS: Anion Gap 5 (3-11); BUN Creatinine Ratio 18.5 (10-20); Blood Urea Nitrogen 5 mg/dl (6-23); Calcium 8.6 mg/dl (8.5-10.1); Carbon Dioxide 25 mmol/L (21-32); Chloride 107 mmol/L (98-107); Creatinine Clr Calc Pharmacy 274.7 ml/min; Est GFR (African American) > 150.0 ml/min; Est GFR (Non-African American) > 150.0 ml/min; Glucose 106 mg/dl (70-99(Fasting)); Potassium 3.8 mmol/L (3.5-5.1); Sodium 137 mmol/L (136-145)
[2021-06-17] MEDS: guaiFENesin 600 MG TABCR PO SCH ×2 (06:19→17:55)
[2021-06-17] MEDS: MoRPHine SULFATE CR 15 MG TABCR PO SCH ×2 (06:19→17:55)
[2021-06-17] MEDS: D5W AND 1/2NSS + 20MEQ KCL 20 MEQ/1,000 ML BAG IV SCH ×2 (06:19→17:56)
[2021-06-17] MEDS: POTASSIUM CHLORIDE 10 MEQ TABCR PO SCH ×2 (08:29→21:17)
[2021-06-17] MEDS: DANTROLENE SODIUM 25 MG CAP PO SCH ×3 (08:29→21:15)
[2021-06-17] MEDS: busPIRone 5 MG TAB PO SCH ×2 (08:30→21:14)
[2021-06-17] MEDS: DULoxetine HCL 60 MG CAP PO SCH ×2 (08:31→21:16)
[2021-06-17] MEDS: METHENAMINE HIPPURATE 1 GM TAB PO SCH ×2 (08:31→21:16)
[2021-06-17] MEDS: DOCUSATE SODIUM 100 MG CAP PO SCH ×2 (08:32→21:14)
--- NOTE | 2021-06-17 11:11 | Hospitalist Progress Note ---
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 Summers Postop management as per reconstructive surgery Currently on IV daptomycin ID consult placed by reconstructive surgery for chronic osteomyelitis - await recs Pt with chronic pain in setting of quadriplegia. She is on MS contin 15mg bid and oxycodone 10/325 q6h prn. Typically she takes this bid at home. Will add low dose IV dilaudid for break through pain given recent surgery, will d/c order with in 48hrs continue muscle relaxers (2) Labia irritation: Plan: Per Dr. 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 Summers (3) History of DVT (deep vein thrombosis): Plan: Continue Xarelto (4) Depression: (5) Anxiety: Plan: mood stable continue home meds (6) Neurogenic dysfunction of the urinary bladder: (7) Quadriplegia: Plan: Has chronic Bonilla Continue home pain medications (8) DVT prophylaxis: Plan: On Xarelto Patient was seen and examined in collaboration with Dr. Evens sauer, please see addendum Thank you for this consultation. We will follow the patient with you during their hospital stay. You can reach a member of the [facility] Hospitalist Team 21/12 via the [facility] Hospitalist role in [place] Text. The chart was completed utilizing [employer] Speech voice recognition software. Grammatical errors, random word insertions, pronoun errors, and incomplete sentences are an occasional consequence of this system due to software limitations, ambient noise, and hardware issues. Any formal questions or concerns about the content, text, or information contained within the body of this dictation should be directly addressed to the provider for clarification. 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 Summers is a medical consult. Pt is doing well, added IV Dilaudid for breakthrough pain. Agree with the assessment and plan as above. A n P as above. Upon Exam GENERAL: Alert and oriented x3. NAD, on RA. HEENT: No pallor, no icterus. Pupils equal, round and reactive to light. Oral mucosa moist. NECK: No JVD, no neck masses. HEART: S1 and S2 heard. Regular rate and rhythm. No murmur, no gallop. RESPIRATORY SYSTEM: Normal AP diameter. No accessory muscle use. No wheezing, no crackles. ABDOMEN: Soft, bowel sounds present, nontender, no distention. CENTRAL NERVOUS SYSTEM: No facial droop. Speech is clear. Obeys simple commands. Moves extremities. EXTREMITIES: No edema, no erythema seen. quadriplegic (partial BUE paresis) Can't be manipulated for wound exam. Bonilla in situ, yellow urine collection noted. I have seen and examined the patient and have discussed the case with the provider above. I agree with the assessment and plan as stated. Subjective Patient seen and examined in room 362-1. Follow-up stage IV ischial pressure ulcer with hamstring flap closure by Dr. Summers, POD #1. She is complaining of increased pain. She states her home regimen of MS Contin and oxycodone has been continued, but given surgery she is having more pain. She is requesting increased analgesia. She denies fever, chills, sweats, lightheadedness, dizziness, chest pain, shortness of breath, nausea, vomiting, abdominal pain. She did have nausea yesterday but this has since resolved. She is upset that the staff is not assisting her with meals. Review of Systems Review of Systems: All systems reviewed & are unremarkable except as noted in HPI & below Physical Exam Physical Exam: Gen: WD/WN, NAD, A&O x3 HEENT: Normocephalic, atraumatic, conjunctivae moist, sclerae anicteric, mucous membranes moist. Lung: Clear to Auscultation bilaterally, no wheezes/rales/rhonchi Heart: Regular rate, regular rhythm, no murmurs, rubs, or gallops Abdomen: Soft, NT, ND +BS x 4 Extremities: No edema, quadriplegia Skin: Warm, no rash, negative turgor. : Bonilla draining clear urine Results & Data Results & Data ([facility]) Vital Signs (Past 12 Hours) Vital Signs Temp Pulse Resp BP Pulse Ox 06/17/21 07:06 36.9 C 76 16 95/58 L 97 06/17/21 04:06 37.7 C H 95 H 16 101/66 95 Laboratory Results Short CBC 06/17/21 Range/Units 04:46 WBC 5.11 (4.8-10.8) K/uL Hgb 12.7 (12.0-16.0) g/dL Hct 39.5 (37-47) % Plt Count 121 L (130-400) K/uL BMP 06/17/21 04:46 Sodium 137 Potassium 3.8 Chloride 107 Carbon Dioxide 25 BUN 5 L Creatinine 0.27 L Glucose 106 H Calcium 8.6 Medications Administered Current Inpatient Medications Acetaminophen (Acetaminophen 500 Mg Tab) 1,000 mg PO Q6H PRN PRN Reason: Fever Or Pain Stop: 07/16/21 17:01 Baclofen (Baclofen 20 Mg Tab) 20 mg PO QID@0330,0830,1530,2030 [facility] Stop: 07/16/21 20:29 Last Admin: 06/17/21 08:30 Dose: 20 mg Documented by: Baclofen (Baclofen 10 Mg Tab) 10 mg PO QID@0330,0830,1530,2030 [facility] Stop: 07/16/21 20:29 Last Admin: 06/17/21 08:31 Dose: 10 mg Documented by: Buspirone HCl (Buspirone 5 Mg Tab) 10 mg PO BID [facility] Stop: 07/16/21 20:59 Last Admin: 06/17/21 08:30 Dose: 10 mg Documented by: Cyclobenzaprine HCl (Cyclobenzaprine Hcl 5 Mg Tab) 5 mg PO TID PRN PRN Reason: Muscle Spasm Stop: 07/16/21 17:01 Dantrolene Sodium (Dantrolene Sodium 25 Mg Cap) 100 mg PO TID [facility] Stop: 07/16/21 20:59 Last Admin: 06/17/21 08:29 Dose: 100 mg Documented by: Docusate Sodium (Docusate Sodium 100 Mg Cap) 100 mg PO BID [facility] Stop: 07/16/21 20:59 Last Admin: 06/17/21 08:32 Dose: 100 mg Documented by: Duloxetine HCl (Duloxetine Hcl 60 Mg Cap) 60 mg PO BID [facility] Stop: 07/16/21 20:59 Last Admin: 06/17/21 08:31 Dose: 60 mg Documented by: Epinephrine HCl (Epinephrine Inj 1 Mg/Ml Amp) 0.3 mg IM ONCE PRN PRN Reason: anaphylaxis Stop: 07/16/21 18:17 Fluticasone Propionate (Fluticasone Propionate Na Spr 16 Gm Btl) 2 sprays NA QAM PRN PRN Reason: allergies Stop: 07/16/21 17:01 Gabapentin (Gabapentin 600 Mg Tab) 600 mg PO QID@0330,0830,1529,2029 [facility] Stop: 07/16/21 20:29 Last Admin: 06/17/21 08:32 Dose: 600 mg Documented by: Gabapentin (Gabapentin 300 Mg Cap) 300 mg PO QID@0330,0830,1529,2029 [facility] Stop: 07/16/21 20:29 Last Admin: 06/17/21 08:32 Dose: 300 mg Documented by: Guaifenesin (Guaifenesin 600 Mg Tabcr) 600 mg PO Q12H [facility] Stop: 07/16/21 17:59 Last Admin: 06/17/21 06:19 Dose: 600 mg Documented by: Heparin Sodium (Porcine) (Heparin 100 Unit/Ml 5ml Flush) 5 ml FLUSH PRN PRN PRN Reason: Flush Stop: 07/17/21 00:11 Hydromorphone HCl (Hydromorphone Inj 0.5 Mg/0.5 Ml Syr) 0.25 mg IV Q6H PRN PRN Reason: severe pain Stop: 07/01/21 11:03 Daptomycin 225 mg/ Syringe 4.5 mls @ 2.25 mls/min IV Q24H [facility]; Protocol Stop: 06/19/21 11:59 Potassium Chloride/Dextrose/Sod Cl (D5w And 1/2nss + 20meq Kcl) 20 meq in 1,000 mls @ 75 mls/hr IV .[id number] [facility] Stop: 07/16/21 17:59 Last Admin: 06/17/21 06:19 Dose: 75 mls/hr Documented by: Lorazepam (Lorazepam 0.5 Mg Tab) 0.5 mg PO Q8 PRN PRN Reason: Anxiety Stop: 07/16/21 17:01 Melatonin (Melatonin 3 Mg Tab) 3 mg PO HS PRN PRN Reason: Insomnia Stop: 07/16/21 17:01 Methenamine Hippurate (Methenamine Hippurate 1 Gm Tab) 1 gm PO BID [facility] Stop: 06/21/21 20:59 Last Admin: 06/17/21 08:31 Dose: 1 gm Documented by: Mirtazapine (Mirtazapine Tab 15 Mg Tab) 7.5 mg PO HS [facility] Stop: 07/16/21 20:59 Last Admin: 06/16/21 21:06 Dose: 7.5 mg Documented by: Miscellaneous (Renacidin (Bladder Inst): Order Awaiting Action) 1 ea N/A QS [facility] Stop: 07/17/21 07:59 Last Admin: 06/17/21 08:33 Dose: Not Given Documented by: Miscellaneous (Docusate Sodium [Enemeez]: Order Awaiting Action) 1 ea N/A QS [facility] Stop: 07/17/21 07:59 Last Admin: 06/17/21 08:33 Dose: Not Given Documented by: Miscellaneous Information (Daptomycin Consult Active) 1 ea N/A UD PRN PRN Reason: Consult Stop: 07/16/21 14:15 Morphine Sulfate (Morphine Sulfate Cr 15 Mg Tabcr) 15 mg PO Q12H [facility] Stop: 06/30/21 17:59 Last Admin: 06/17/21 06:19 Dose: 15 mg Documented by: Nystatin (Nystatin Powder 15gm Btl) 1 appln EXT BID PRN PRN Reason: Skin Irritation Stop: 07/16/21 17:01 Ondansetron HCl (Ondansetron Inj 2 Mg/Ml 2 Ml Vial) 4 mg IV Q6H PRN PRN Reason: Nausea And Vomiting Stop: 07/16/21 17:46 Oxybutynin Chloride (Oxybutynin Chloride 5 Mg Tab) 5 mg PO Q6H PRN PRN Reason: Bladder Spasms Stop: 07/16/21 17:01 Oxycodone/Acetaminophen (Oxycodone/Acetaminophen 10-325 Tab) 1 tab PO Q6 PRN PRN Reason: Pain Stop: 06/30/21 17:01 Last Admin: 06/17/21 10:34 Dose: 1 tab Documented by: Potassium Chloride (Potassium Chloride 10 Meq Tabcr) 10 meq PO BID [facility] Stop: 02/16/22 20:59 Last Admin: 06/17/21 08:29 Dose: 10 meq Documented by: Rivaroxaban (Rivaroxaban 20 Mg Tab) 20 mg PO QDD [facility] Stop: 07/17/21 16:29 Zolpidem Tartrate (Zolpidem Tartrate 5 Mg Tab) 5 mg PO HS PRN PRN Reason: Sleep Stop: 07/16/21 17:01
--- NOTE | 2021-06-17 11:32 | Surgery Progress Note ---
Date of Service June 17, 2021 Assessment & Plan (1) Pressure ulcer: Plan: Flap is viable. ID consult pending for antibiotic management. Orders regarding positioning clarified in [facility]. Patient may not lay flat or be seated due to risk of wound dehiscence or flap failure. Dilaudid added by medical team; would also add Valium to help with spasticity. Timing of discharge will depend on culture results/ ID recommendations. Admission and Anticipated Discharge Date Admission Date: June 16, 2021 Subjective Patient seen POD #1. Expresses concern about positioning, noting that she was flat on her back last evening and that staff did not understand she cannot be placed in seated position. Experiencing pain at surgical site and had significant spasms yesterday as she missed 2 doses of meds due to surgery. Provena would not hold suction yesterday afternoon and was removed. Physical Exam Physical Exam: resting in bed, positioned on right hip flap of left posterior thigh pink and viable, incisions intact JPs appropriate (30 and 35 since OR) with serosanguinous drainage Results & Data ([facility]) Vital Signs (Past 12 Hours) Vital Signs Temp Pulse Resp BP Pulse Ox 06/17/21 07:06 98.4 F 76 16 95/58 L 97 06/17/21 04:06 99.9 F H 95 H 16 101/66 95 Laboratory Results Hgb 12.7 gram stain of bone negative so far PG Care Time/CCT Total # of Minutes Spent Total Time Spent with Patient: Total time spent is greater than 50% in coordination of care (as documented) at patient's floor/unit and/or counseling patient: Coding Level of Care Code None Diagnoses Pressure ulcer L89.90 Pressure injury location: buttock Pressure injury stage: stage 4 (1) Pressure ulcer Pressure injury location: buttock Pressure injury stage: stage 4
[2021-06-17] MEDS: DAPTOmycin 225 MG in SYRINGE 0 ML IV SCH (11:44)
[2021-06-17] MEDS: diazePAM 5 MG TABLET PO PRN ×2 (11:50→19:45)
[2021-06-17] MEDS: HYDROmorphone INJ 0.5 MG/0.5 ML SYR IV PRN (14:24)
[2021-06-17] MEDS: RIVAROXABAN 20 MG TAB PO SCH (16:27)
[2021-06-17] MEDS: SOD PHOSPHATE/SOD BIPHOSPHATE ENEMA 132 ML BTL PR PRN (16:31)
[2021-06-17] MEDS: ONDANSETRON INJ 2 MG/ML 2 ML VIAL IV PRN (17:55)
[2021-06-17] MEDS: MIRTAZAPINE TAB 15 MG TAB PO SCH (21:16)
[2021-06-18] MEDS: GABAPENTIN 300 MG CAP PO SCH ×4 (04:53→20:26)
[2021-06-18] MEDS: BACLOFEN 10 MG TAB PO SCH ×4 (04:53→20:24)
[2021-06-18] MEDS: GABAPENTIN 600 MG TAB PO SCH ×4 (04:53→20:24)
[2021-06-18] MEDS: BACLOFEN 20 MG TAB PO SCH ×4 (04:54→20:24)
[2021-06-18] MEDS: SOD PHOSPHATE/SOD BIPHOSPHATE ENEMA 132 ML BTL PR PRN (05:01)
[2021-06-18] MEDS: guaiFENesin 600 MG TABCR PO SCH ×2 (05:05→18:02)
[2021-06-18] MEDS: MoRPHine SULFATE CR 15 MG TABCR PO SCH ×2 (05:05→18:00)
[2021-06-18] MEDS: D5W AND 1/2NSS + 20MEQ KCL 20 MEQ/1,000 ML BAG IV SCH ×2 (06:07→20:21)
[2021-06-18] MEDS: DANTROLENE SODIUM 25 MG CAP PO SCH ×3 (08:59→20:22)
[2021-06-18] MEDS: METHENAMINE HIPPURATE 1 GM TAB PO SCH ×2 (08:59→20:27)
[2021-06-18] MEDS: busPIRone 5 MG TAB PO SCH ×2 (09:00→20:25)
[2021-06-18] MEDS: DOCUSATE SODIUM 100 MG CAP PO SCH ×2 (09:00→20:26)
[2021-06-18] MEDS: DULoxetine HCL 60 MG CAP PO SCH ×2 (09:01→20:26)
[2021-06-18] MEDS: POTASSIUM CHLORIDE 10 MEQ TABCR PO SCH ×2 (09:02→20:24)
[2021-06-18] MEDS: ONDANSETRON INJ 2 MG/ML 2 ML VIAL IV PRN (09:39)
[2021-06-18] MEDS: HYDROmorphone INJ 0.5 MG/0.5 ML SYR IV PRN ×2 (11:20→22:40)
[2021-06-18] MEDS: DAPTOmycin 225 MG in SYRINGE 0 ML IV SCH (12:07)
--- NOTE | 2021-06-18 13:16 | Surgery Progress Note ---
Date of Service June 18, 2021 Assessment & Plan (1) Pressure ulcer: Plan: Flap remains viable. Per patient, pain is better controlled today. Per Chaitanya RENAE consult- patient can be discharged on Augmentin 500mg TID through 07/28/2021 with weekly CRP through 09/25/21. Once CRP with in normal limits would monitor q2 weeks following discontinuation of antibiotics. Plan is for possible discharge tomorrow- late morning. Will plan for drains to remain at discharge and patient to follow-up in wound care clinic next week. Admission and Anticipated Discharge Date Admission Date: June 16, 2021 Subjective Patient seen POD #2. Elenita reports that her pain is better controlled today. She had a Telehealth visit with [place] RENAE, Dr. Zain Fang, this morning. Elenita states that they believe that she will be able to complete an extended course of PO antibiotics when she is discharged home. Physical Exam Physical Exam: Elenita is resting in bed, positioned on right hip Surgical dressing removed. Flap of left posterior thigh pink and viable, incisions intact. New Xeroform dressing applied with ABD overtop and paper tape. JPs with serosanguinous drainage (left MANJIT 5 cc and right MANJIT 15 cc overnight). Results & Data ([facility]) Vital Signs (Past 12 Hours) Vital Signs Temp Pulse Resp BP Pulse Ox 06/18/21 08:08 37.2 C 66 16 113/76 99 PG Care Time/CCT Total # of Minutes Spent Total Time Spent with Patient: Total time spent is greater than 50% in coordination of care (as documented) at patient's floor/unit and/or counseling patient: Coding Level of Care Code None Diagnoses Pressure ulcer L89.90 Pressure injury location: buttock Pressure injury stage: stage 4 (1) Pressure ulcer Pressure injury location: buttock Pressure injury stage: stage 4
--- NOTE | 2021-06-18 13:57 | Hospitalist Progress Note ---
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 Summers Postop management as per reconstructive surgery Currently on IV daptomycin ID consult placed by reconstructive surgery for chronic osteomyelitis - recommendations are for Augmentin 500mg TID through 07/28/2021 with weekly CRP through 09/25/21. Once CRP with in normal limits would monitor q2 weeks following discontinuation of antibiotics. Pt with chronic pain in setting of quadriplegia. She is on MS contin 15mg bid and oxycodone 10/325 q6h prn. Typically she takes this bid at home. Will add low dose IV Dilaudid for break through pain given recent surgery, will d/c order with in 48hrs continue muscle relaxers IV Port a cath at discharge please follow up with PCP to make sure pt has maintenance of access device in place and flushes (2) Labia irritation: Plan: Per Dr. 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 Murray, please see addendum Thank you for this consultation. We will follow the patient with you during their hospital stay. You can reach a member of the [facility] Hospitalist Team 21/12 via the [facility] Hospitalist role in [place] Text. The chart was completed utilizing [employer] Speech voice recognition software. Grammatical errors, random word insertions, pronoun errors, and incomplete sentences are an occasional consequence of this system due to software limitations, ambient noise, and hardware issues. Any formal questions or concerns about the content, text, or information contained within the body of this dictation should be directly addressed to the provider for clarification. Admission and Anticipated Discharge Date Admission Date: June 16, 2021 Supervising Physician Co-Signing Physician Notes Patient seen and examined Patient's pain is controlled Continue dressing per surgeon ID recommendations appreciated Agree with findings and plans as detailed by Elenita Beebe PA-C Subjective Patient seen and examined in room 362-1. Follow-up stage IV ischial pressure ulcer with hamstring flap closure by Dr. Summers, POD #2. Pain is improving today. She is to have wound re dressed today. Denies f/c/s, chest pain, sob, n/v/d. Had BM this morning and last night. Review of Systems Review of Systems: All systems reviewed & are unremarkable except as noted in HPI & below Physical Exam Physical Exam: Gen: WD/WN, NAD, A&O x3, lying in bed HEENT: Normocephalic, atraumatic, conjunctivae moist, sclerae anicteric, mucous membranes moist. Lung: Clear to Auscultation bilaterally, no wheezes/rales/rhonchi Heart: Regular rate, regular rhythm, no murmurs, rubs, or gallops Abdomen: Soft, NT, ND +BS x 4 Extremities: No edema, quadriplegia Skin: Warm, no rash, negative turgor. : Bonilla draining clear urine, posterior wound vac in place Results & Data Results & Data ([facility]) Vital Signs (Past 12 Hours) Vital Signs Temp Pulse Resp BP Pulse Ox 06/18/21 08:08 37.2 C 66 16 113/76 99 (1) Pressure ulcer Pressure injury location: buttock Pressure injury stage: stage 4
[2021-06-18] MEDS: oxyCODONE/ACETAMINOPHEN 10-325 TAB PO PRN (15:07)
[2021-06-18] MEDS: AMOXICILLIN/CLAVULANATE 500 MG TAB PO SCH (16:28)
[2021-06-18] MEDS: RIVAROXABAN 20 MG TAB PO SCH (16:29)
[2021-06-18] MEDS ORDERED: SOD PHOSPHATE/SOD BIPHOSPHATE ENEMA 132 ML BTL PR PRN (20:04)
[2021-06-18] MEDS ORDERED: SOD PHOSPHATE/SOD BIPHOSPHATE ENEMA 132 ML BTL PR ONE (20:19)
[2021-06-18] MEDS: MIRTAZAPINE TAB 15 MG TAB PO SCH (20:25)
[2021-06-19] MEDS: GABAPENTIN 600 MG TAB PO SCH ×2 (03:33→09:56)
[2021-06-19] MEDS: BACLOFEN 20 MG TAB PO SCH ×2 (03:33→10:06)
[2021-06-19] MEDS: GABAPENTIN 300 MG CAP PO SCH ×2 (03:33→09:56)
[2021-06-19] MEDS: BACLOFEN 10 MG TAB PO SCH ×2 (03:34→09:55)
[2021-06-19] MEDS: guaiFENesin 600 MG TABCR PO SCH (05:43)
[2021-06-19] MEDS: MoRPHine SULFATE CR 15 MG TABCR PO SCH (05:43)
[2021-06-19] MEDS: HYDROmorphone INJ 0.5 MG/0.5 ML SYR IV PRN (05:49)
[2021-06-19 06:20] LABS: C Reactive Protein 4.94 mg/dl (0-0.5); Creatinine Clr Calc Pharmacy 309.1 ml/min; Est GFR (African American) > 150.0 ml/min; Est GFR (Non-African American) > 150.0 ml/min
--- NOTE | 2021-06-19 09:06 | Hospitalist Progress Note ---
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 Summers Postop management as per reconstructive surgery - scheduled for wound care, daily dressing changes and drain mgmt. HH starting Wednesday Currently on IV daptomycin ID consult placed by reconstructive surgery for chronic osteomyelitis - recommendations are for Augmentin 500mg TID through 07/28/2021 with weekly CRP through 09/25/21 Once CRP with in normal limits would monitor q2 weeks following discontinuation of antibiotics Pt with chronic pain in setting of quadriplegia. She is on MS contin 15mg bid and oxycodone 10/325 q6h prn. Typically she takes this bid at home Continue muscle relaxers IV Port a cath ID recommended removal of port a cath due to infrequent use but daughter and patient request it stay in place due to difficulty Orders for maintenance flushing need to be done by a physician directly involved in her care - discussed this with patient, who will discuss with PCP upon discharge (2) Labia irritation: Plan: Per Dr. Summers, there is a labial ulceration from chronic Bonilla [employer] consult placed by Dr. Summers (3) History of DVT (deep vein thrombosis): Plan: Continue Xarelto (4) Depression: (5) Anxiety: Plan: Mood stable continue home meds (6) Neurogenic dysfunction of the urinary bladder: (7) Quadriplegia: Plan: Has chronic Bonilla Continue home pain medications Also requires enemas, JOHNNY for BM (8) DVT prophylaxis: Plan: On Xarelto Patient was seen and examined in collaboration with Dr. Murray, please see addendum Thank you for this consultation. We will follow the patient with you during their hospital stay. You can reach a member of the [facility] Hospitalist Team 21/12 via the [facility] Hospitalist role in [place] Text. Admission and Anticipated Discharge Date Admission Date: June 18, 2021 Supervising Physician Co-Signing Physician Notes Patient seen and examined Agree with plans as detailed by Sabine Narayanan PA-C Subjective Patient seen and examined in room 362-1. Follow-up stage IV ischial pressure ulcer with hamstring flap closure by Dr. Summers, POD #3. Pain has improved, patient is comfortable. No fever, chills, CP, SOB, N/V, abdominal pain. Normal bowel movements. Bonilla catheter in place. Review of Systems Review of Systems: At least ten systems reviewed and negative except as noted in the HPI. Results & Data Results & Data ([facility]) Vital Signs (Past 12 Hours) Vital Signs Temp Pulse Resp BP Pulse Ox 06/19/21 07:55 36.8 C 71 16 118/64 97 (1) Pressure ulcer Pressure injury location: buttock Pressure injury stage: stage 4
--- NOTE | 2021-06-19 09:21 | Surgery Progress Note ---
Date of Service June 19, 2021 Assessment & Plan (1) Pressure ulcer: Plan: Dr. Summers in to see and examine patient. Flap remains viable. Per patient, pain is better controlled today. She is ready for discharge to home today. [facility] patient can be discharged on Augmentin 500mg TID through 07/28/2021 with weekly CRP through 09/25/21. Prescription for Augmentin sent to patient's pharmacy. Once CRP with in normal limits would monitor q2 weeks following discontinuation of antibiotics. Prescription for weekly CRP provided to patient by Hospitalist team. Daily dressing changes will be completed at home- single layer of Xeroform covering incision with ABD pad overtop and paper tape. Drains will also remain in place at discharge. Drains need to be emptied and output needs to be recorded. Patient does have Home Health- can hopefully start tomorrow, Wednesday at the latest. Wound care will be reaching out to patient to schedule follow-up next week at wound care center. Elenita is aware that she is not allowed to lay flat on her back or be seated. She is also to turn and change position every 2 hours. She will also follow-up with PCP for port flushes. She was encouraged to call our office with any questions or concerns. Admission and Anticipated Discharge Date Admission Date: June 18, 2021 Supervising Physician Co-Signing Physician Notes Flap looks great, well perfused and with intact incision. Plan to discharge home today on PO antibiotics with follow up at wound center next week. Subjective Patient seen POD #[address] Summers. Elenita reports that her pain is well- controlled. No new concerns overnight. Physical Exam Physical Exam: Dr. Summers in to see and examine patient. Elenita is resting in bed, positioned on right hip. Flap of left posterior thigh pink and viable, incisions intact with armin in place. New Xeroform dressing applied with ABD overtop and paper tape. JPs with serosanguinous drainage (left MANJIT 5 cc and right MANJIT 5 cc overnight). Results & Data ([facility]) Vital Signs (Past 12 Hours) Vital Signs Temp Pulse Resp BP Pulse Ox 06/19/21 07:55 36.8 C 71 16 118/64 97 PG Care Time/CCT Total # of Minutes Spent Total Time Spent with Patient: Total time spent is greater than 50% in coordination of care (as documented) at patient's floor/unit and/or counseling patient: Coding Level of Care Code None Diagnoses Pressure ulcer L89.90 Pressure injury location: buttock Pressure injury stage: stage 4 (1) Pressure ulcer Pressure injury location: buttock Pressure injury stage: stage 4
[2021-06-19] MEDS: AMOXICILLIN/CLAVULANATE 500 MG TAB PO SCH ×2 (09:53→11:47)
[2021-06-19] MEDS: busPIRone 5 MG TAB PO SCH (09:56)
[2021-06-19] MEDS: DANTROLENE SODIUM 25 MG CAP PO SCH (09:57)
[2021-06-19] MEDS: DOCUSATE SODIUM 100 MG CAP PO SCH (09:58)
[2021-06-19] MEDS: DULoxetine HCL 60 MG CAP PO SCH (09:58)
[2021-06-19] MEDS: POTASSIUM CHLORIDE 10 MEQ TABCR PO SCH (09:59)
[2021-06-19] MEDS: METHENAMINE HIPPURATE 1 GM TAB PO SCH (09:59)
[2021-06-19] MEDS: oxyCODONE/ACETAMINOPHEN 10-325 TAB PO PRN (10:58)
--- NOTE | 2021-06-20 14:00 | Discharge Summary ---
Date of Service June 20, 2021 Admission HPI Per Admitting Provider Please see admission H & P. Admission Exam Per Admitting Provider Please see admission H & P. Principal Diagnosis Stage 4 Ischial Pressure Ulcer Discharge Data Allergies Allergy/AdvReac Type Severity Reaction Status Date / Time cefepime Allergy Severe ANAPHYLAXIS Verified 06/13/21 11:14 imipenem Allergy Severe SEIZURE Verified 06/13/21 11:14 fentanyl Allergy Intermediate ITCHY AND Verified 06/13/21 11:14 RASH vancomycin Allergy Intermediate RASH Verified 06/13/21 11:14 levofloxacin Allergy Mild rash Verified 06/13/21 11:14 Consultations 06/16/21 14:12 Consult Gynecology Routine 06/16/21 17:02 Consult Hospitalist Routine Consult Infectious Diseases Routine Procedures Performed Operation Date: 04/14/21 07:30 <No data on this case meets the specified criteria> Operation Date: 06/16/21 09:50 Actual Procedures p Debridement of Stage 4 Ischial Pressure Ulcer with Hamstring Flap Closure(Left) - Roz Summers MD Hospital Course (1) Pressure ulcer: Elenita is a 30-year-old incomplete quadriplegic with history of left ischial ulcers. Previously healed 1 ulceration nonsurgically, about 3 years ago underwent VY hamstring flap closure, which initially was successful, but patient developed recurrent ulceration about 2 months postoperatively. At that time, we elected to proceed with nonsurgical management, followed by debridement and wound VAC placement. Wound has stalled, has been treated with multiple wound healing modalities, IV antibiotics, and hyperbaric oxygen. We initially postponed her advancement of the flap due to her school schedule, plans to proceed in March but surgery was canceled due to COVID-[address] Summers proceeded with Debridement of Stage 4 Ischial Pressure Ulcer with Hamstring Flap Closure. Provena wound vac was placed intraoperatively, but would not hold suction. Wound vac was removed and wound was dressed with single layer Xeroform, ABD, and paper tape. There were no intraoperative complications. Patient was admitted to Med/Surg floor. While inpatient she had consult with [facility] who recommended, based on intraoperative cultures, that patient be treated for 6 weeks with 500mg TID Augmentin and weekly CRP. Patient was discharged to home on POD #3. She will follow-up at [facility] in 1 week. Total Time Total Time Spent Total Time Spent (In Minutes): 10 min. Discharge Plan Discharge Items Patient Disposition: Home - Home Health Services Reason For Visit: PRESSURE ULCER Discharge Diagnosis: Pressure Ulcer Activity: As commented below Non-emergency contact: Surgeon Call non-emergency contact if: your pain is not controlled, your temperature is above 101.5, your wound has increased redness and your wound has increased drainage Follow-up/Referrals: Roz Summers MD [Physician] - 06/27/21 10:00 am (DR SUMMERS OR IRVIN BRAVO PA-C WILL SEE YOU AT [facility] THIS APPT IS AT [facility].) Deepak Narayanan MD [Physician] - (Date & Time 07/16/2021 3:20 PM Provider Deepak Narayanan MD Department Infectious Disease [facility] ) Wade Lacy MD [Primary Care Provider] - (Date & Time 06/25/2021 11:00 AM Provider Wade Lacy MD Department Family Practice [facility] ) Diet: Regular Addtl Attending Provider Instructions: ACTIVITY RECOMMENDATIONS: _X_ Patient is not to lay flat or be seated due to risk of wound dehiscence or f lap failure. She is to turn and be re-positioned every 2 hours. DRESSINGS: _X_ Daily dressing change- single layer of Xeroform over entire incision, ABD, and paper tape. This dressing should be changed daily. [place] are to remain in place for at least 2 weeks. BATHING: _X_No swimming, hot tubs or soaking in a tub- do not soak or scrub incision. Sp onge bathing permitted. MEDICATIONS: Resume previous medications unless instructed otherwise by your surgeon. __Do not use aspirin, Motrin, Advil or Ibuprofen as these may promote bleeding. Please use Tylenol. _X_Prescription(s) provided: Augmentin 500 mg three times daily for 6 weeks and weekly bloodwork (C reactive protein). OTHER INSTRUCTIONS: _X_Record drain output 2-3 times per day. SPECIAL CARE INSTRUCTIONS: * It is normal to have a mild fever after surgery. If your temperature is higher than 101.5 degrees F, please call the office at [phone]. * Constipation is a typical side effect of pain medication. An [id number] stool softener will help relieve this. * Leaking around surgical drains may occur and should not cause concern. Sometimes these drains become clogged. If this happens, remove the bulb and milk the clot out of the tube, then replace the bulb. * If you have unusual drainage from a wound or are concerned you have an infection or have any questions or concerns, please call the office at [phone]. FOLLOW UP VISIT: Patient to follow-up in wound care center next week. Patient to follow-up with primary care provider regarding port flushes. Pending Studies at Discharge: No Stand-Alone Forms: My [facility] Dx, Smoking Cessation Medications and DC Order Prescriptions: New amoxicillin-pot clavulanate [Augmentin] 500-125 mg tablet 1 tab PO TID 42 Days Qty: 126 RF: 0 Continued cyclobenzaprine 5 mg tablet 5 mg PO TID PRN (Reason: Muscle Spasm) RF: 0 morphine 15 mg tablet extended release 15 mg PO Q12H RF: 0 Renacidin 1,980.6 mg-59.4 mg-980.4mg/30mL solution 30 ml irrigation 3XWK Qty: 900 RF: 0 ascorbic acid (vitamin C) 1,000 mg Tablet 1 g PO Q12 RF: 0 dantrolene 100 mg Capsule 100 mg PO TID RF: 0 buspirone 10 mg Tablet 10 mg PO BID RF: 0 docusate sodium 100 mg Tablet 100 mg PO BID RF: 0 lorazepam 0.5 mg Tablet 0.5 mg PO Q8 PRN (Reason: Anxiety) RF: 0 fluticasone propionate 50 mcg/actuation [place],Suspension 2 spray INTRANASAL QAM PRN (Reason: allergies) RF: 0 methenamine hippurate [Hiprex] 1 gram Tablet 1 g PO BID RF: 0 mirtazapine 15 mg Tablet 7.5 mg PO HS RF: 0 zolpidem 5 mg Tablet 5 mg PO HS PRN (Reason: Sleep) RF: 0 Xarelto 20 mg Tablet 20 mg PO QAM RF: 0 duloxetine [Cymbalta] 60 mg capsule,delayed release(DR/EC) 60 mg PO BID RF: 0 nystatin 100,000 unit/gram Powder 1 applic TOPICAL BID PRN (Reason: Skin Irritation) RF: 0 guaifenesin [Mucinex] 600 mg Tablet Extended Release 12hr 600 mg PO Q12H RF: 0 baclofen 20 mg tablet 20 mg PO QID RF: 0 gabapentin 600 mg tablet 600 mg PO QID RF: 0 baclofen 10 mg tablet 10 mg PO QID RF: 0 gabapentin 300 mg capsule 300 mg PO QID RF: 0 docusate sodium [Enemeez] 283 mg/5 mL Enema 283 mg MS HS RF: 0 melatonin 3 mg Tablet 3 mg PO HS PRN (Reason: Insomnia) RF: 0 oxybutynin chloride 5 mg Tablet 5 mg PO Q6H PRN (Reason: Bladder Spasms) RF: 0 potassium chloride 10 mEq capsule, extended release 10 meq PO BID RF: 0 acetaminophen [Tylenol Extra Strength] 500 mg Tablet 1,000 mg PO Q6H PRN (Reason: Fever Or Pain) RF: 0 oxycodone-acetaminophen 10-325 mg tablet 1 tab PO Q6 PRN (Reason: Pain) RF: 0 epinephrine [EpiPen 2-Fam] 0.3 mg/0.3 mL auto-injector 0.3 mg IM ONCE PRN (Reason: anaphylaxis) Qty: 1 RF: 1 Discharge Orders: Discharge Order (Routine); Ordered 06/19/21 Ordered By: Maribel Michaels/Other Patient Handouts: Wound Care, Preventing Pressure Injuries Admission Data Admit Date/Time: 06/18/21 16:13 Attending Provider: Roz Summers Admit Provider: Roz Summers Primary Care Provider: Wade Lacy Other Providers: Oscar Donahue ; Louisa Huerta ; Lisa Winter ; Lee Allan ; Paige Philip ; Sharon Vang ; Lolis Pike ; Sabine Narayanan ; Spencer Nance ; Neeraj Dave ; Antione Nunez ; Nehal Jackson ; Erin Santiago ; Adam Young ; Gwen Antunez ; Elenita Beebe ; Vernon Prakash ; Jaylene Pimentel ; Kami Peterson ; Kevin Millan ; Marilyn Murray I. ; Vinicius Arevalo ; Basilio Phliip ; Ryder Schultz ; Hakan Bacon ; Alejandro Marques ; Saul Nixon ; Deepak Narayanan I. ; Zay Altman II ; Maegan Glez ; Zain Fang ; Christian Napoles Other Interventions: Discharge Summary Assessment (RN) Last Done: 06/19/21 11:34 Supervising Physician Co-Signing Physician Notes Dr. Roz Summers Coding Level of Care Code OBSERV/HOSP SAME DATE LVL 2 Diagnoses Pressure ulcer L89.90 Pressure injury location: buttock Pressure injury stage: stage 4
== END 2021-06-19 13:42 | disposition home health service (06) ==
LOC: 3W 08:04 → ASU 08:04

== ENCOUNTER 2023-04-02 06:04 | Inpatient (IN) ==
[2023-04-02] MEDS ORDERED: SODIUM CHLORIDE 0.9% 2,000 ML IV ONE (06:06)
[2023-04-02 07:09] LABS: Basophils # (auto) 0.03 K/uL (0.00-0.20); Basophils % (auto) 0.2 %; Eosinophils # (auto) 0.08 K/uL (0.00-0.50); Eosinophils % (auto) 0.5 %; Hematocrit (blood only) 36.7 % (37.0-47.0); Hemoglobin 12.4 g/dl (12.0-16.0); Immature Granulocytes % (auto) 1.3 %; Lymphocytes # (auto) 1.96 K/uL (1.20-3.40); Lymphocytes % (auto) 13.2 %; Mean Corpuscular Hemoglobin 29.8 pg (25.0-34.0); Mean Corpuscular Hgb Conc 33.8 g/dL (32.0-36.0); Mean Corpuscular Volume 88.2 fL (80.0-100.0); Mean Platelet Volume 10.7 fL (9.4-12.4); Monocytes # (auto) 1.76 K/uL (0.11-0.59); Monocytes % (auto) 11.9 %; Neutrophils # (auto) 10.82 K/uL (1.40-6.50); Neutrophils % (auto) 72.9 %; Platelet Count 69 K/uL (130-400); RDW Standard Deviation 42.5 fL (36.4-46.3); Red Blood Count 4.16 M/uL (4.20-5.40); White Blood Count 14.85 K/ul (4.8-10.8)
[2023-04-02] MEDS ORDERED: ONDANSETRON INJ 2 MG/ML 2 ML VIAL IV STA (07:11)
[2023-04-02 07:40] LABS: Alanine Aminotransferase 11 U/L (7-52); Albumin Globulin Ratio 1.5 (0.9-2); Albumin Level 3.7 gm/dl (3.4-5.0); Alkaline Phosphatase 72 U/L (34-104); Anion Gap 6 (3-11); Aspartate Aminotransferase 14 U/L (13-39); Bilirubin,Total 0.7 mg/dl (0.2-1.0); Blood Urea Nitrogen 3 mg/dl (6-23); Calcium 8.7 mg/dl (8.6-10.3); Carbon Dioxide 28 mmol/L (21-32); Chloride 101 mmol/L (98-107); Creatinine Clr Calc Pharmacy 403.9 ml/min; Est GFR (African American) > 150.0 ml/min; Est GFR (Non-African American) > 150.0 ml/min; Globulin 2.4 gm/dl (2.5-4.0); Glucose 101 mg/dl (70-99(Fasting)); Lipase 6 U/L (11-82); Magnesium 1.6 mg/dl (1.7-2.4); Potassium 2.7 mmol/L (3.5-5.1); Sodium 135 mmol/L (136-145); Total Protein 6.1 gm/dl (6.0-8.3)
[2023-04-02 07:49] LABS: Appearance Urine Cloudy (Clear); Bacteria Urine Automated 2+ (Negative); Bilirubin Urine Negative (Negative); Blood Urine Trace (Negative); Color Urine Yellow; Glucose Urine UA Negative (Negative); Ketones Urine 1+ (Negative); Leukocyte Esterase Urine 3+ (Negative); Nitrite Urine Positive (Negative); Protein Urine Negative (Negative); RBC Urine Automated 0-4 /hpf (0-4); Specific Gravity Urine 1.005 (1.000-1.030); Urobilinogen Urine Negative (Negative); WBC Urine Automated >30 /hpf (0-5)
[2023-04-02 07:51] LABS: Cdiff Toxin B Gene (2yr or >) Positive Cdiff Gene (Neg)
[2023-04-02 08:15] LABS: Cdiff Antigen Positive
[2023-04-02 08:17] LABS: Cdiff Toxin A+B Positive Cdiff Toxin (Negative)
[2023-04-02 08:22] LABS: Campylobacter PCR Not Detected (NotDetected); Enteroaggregative E.coli(EAEC) Not Detected (NotDetected); Plesiomonas shigelloides PCR Not Detected (NotDetected); Salmonella PCR Not Detected (NotDetected); Vibrio cholerae PCR Not Detected (NotDetected); Vibrio species PCR Not Detected (NotDetected); Yersinia enterocolitica PCR Not Detected (NotDetected)
[2023-04-02 08:23] LABS: Adenovirus F 40/41 PCR Not Detected (NotDetected); Astrovirus PCR Not Detected (NotDetected); Cryptosporidium PCR Not Detected (NotDetected); Cyclospora cayetanensis PCR Not Detected (NotDetected); Entamoeba histolytica PCR Not Detected (NotDetected); Enteropathogenic E.coli (EPEC) Not Detected (NotDetected); Enterotoxigenic E.coli (ETEC) Not Detected (NotDetected); Giardia lamblia PCR Not Detected (NotDetected); Norovirus GI/GII PCR Not Detected (NotDetected); Rotavirus A PCR Not Detected (NotDetected); Sapovirus PCR Not Detected (NotDetected); Shiga-like Toxin E.coli (STEC) Not Detected (NotDetected); Shigella/Enteroinvasive E.coli Not Detected (NotDetected)
[2023-04-02 08:24] LABS: E.coli O157 PCR Not Detected (NotDetected)
[2023-04-02] MEDS ORDERED: OPTIRAY 320 100ml IV ONE (08:38)
--- NOTE | 2023-04-02 09:19 | CT Scan Report ---
ABDOMEN AND PELVIS CT WITH IV CONTRAST CT DOSE: 967.51 mGy.cm HISTORY: abd pain fever diarrhea TECHNIQUE: Multiaxial CT images of the abdomen and pelvis were performed following the use of intrave nous contrast. A dose lowering technique was utilized adhering to the principles of ALARA. COMPARISON STUDY: Abdomen and pelvis CT 03/16/2023. FINDINGS: Consolidation within the left lower lobe persist and may represent scarring or atelectasis. No pneumoperitoneum. No pneumatosis. No acute fractures identified. No defect within the left ischia l tuberosity again noted. No evidence for acute osteomyelitis. Muscular atrophy seen throughout the a bdomen and pelvis consistent with the patient's known history of quadriplegia. There is a stable 1.3 cm cyst near the umbilicus. Soft tissue thickening and heterogeneous enhancement on the left side of the perianal soft tissues has improved. Stable 6 mm hypodensities within the liver. This favors a cys t. The gallbladder, pancreas, spleen, adrenal glands, and kidneys are unremarkable. No hydronephrosis . Mild periportal lymphadenopathy persists. This is likely chronic. No retroperitoneal or pelvic lymp hadenopathy. Normal caliber abdominal aorta. The main portal vein is patent. No pelvic free fluid. A suprapubic catheter is again noted within the bladder. Gas within the bladder lumen is likely due to the catheter. The uterus and left ovary are unremarkable. There is a 2.6 cm right ovarian cyst, uncha nged. Prior right hemicolectomy. No dilated loops of bowel to suggest an obstruction. There is mild-t o-moderate circumferential thickening seen throughout the colon and rectum consistent with a pancolit is. This favors an infectious or inflammatory process. Fluid-filled colon consistent with the patient 's history of diarrhea. IMPRESSION: 1. Mild to moderate circumferential thickening throughout the colon and rectum consistent with a panc olitis. This favors an infectious or inflammatory process. 2. No evidence for bowel obstruction. 3. Prior right hemicolectomy. 4. Additional findings as described above. ACT 112: Negative or not required by law. Electronically signed by: Adam Yip M.D. 04/02/2023 9:18 AM
[2023-04-02] MEDS ORDERED: POTASSIUM CHLORIDE 10 MEQ TABCR PO STA (09:48)
[2023-04-02] MEDS ORDERED: oxyCODONE/ACETAMINOPHEN 5mg/325mg TAB PO STA (10:01)
[2023-04-02] MEDS ORDERED: ALUMINUM/MAGNESIUM SUSP 30 ML UDC PO PRN (10:48)
[2023-04-02] MEDS ORDERED: ACETAMINOPHEN 325 MG TAB PO PRN (10:48)
[2023-04-02] MEDS ORDERED: POTASSIUM CHLORIDE CRTAB 20 MEQ TABCR PO STA (10:52)
[2023-04-02] MEDS ORDERED: POTASSIUM CHLORIDE / WTR 10 MEQ/100 ML PLCT IV SCH (11:00)
--- NOTE | 2023-04-02 11:17 | History & Physical Report ---
Date of Service April 02, 2023 Assessment & Plan (1) C. difficile colitis: Plan C. difficile colitis Sepsis POA: Likely secondary to above. WBC and heart rate elevated ISO C. difficile colitis Electrolyte abnormalities Patient was recently treated with Augmentin x 10-day course which she completed last per patient. Patient presents with diarrhea for 2 days associated with abdominal pain, nausea, dry heaves, poor appetite. Admitting labs and imagings reviewed. Potassium and magnesium repleted. IV fluids until p.o. intake improves. Monitor and replete electrolytes. Patient is started on Dificid, continue with same. GI consult. Abnormal urine analysis Status suprapubic catheter Abnormal urine analysis likely secondary to colonization iso chronic suprapubic cath. Last suprapubic catheter changed February 28, due for next exchange. Recently completed antibiotic course for UTI, monitor off antibiotic, follow urine culture. Change suprapubic catheter. Other chronic medical conditions: As listed in HPI, continue with/resume home meds as and when able. DVT prophylaxis: Patient on Xarelto for history of DVT Full code History of Present Illness Chief Complaint: Diarrhea x 2 days Primary Care Provider: Wade Lacy MD 32-year-old lady with PMH of cervical spine injury with quadriplegia, DVT on Xarelto, recurrent/chronic pressure ulcer status post debridement and hamstring flap closure May 2021, anxiety, depression, spastic neurogenic bladder status suprapubic catheter, history of recurrent UTI, persistent insomnia presented to the ED 04/02 with complaint of loose stools for 2 days, multiple stools in a day, associated with fever/abdominal pain/headache/poor appetite/nausea/dry heaves. Denies vomiting. Denies dizziness or sore throat or cough or chest pain or palpitation. Reports complete healing of her decubitus ulcer. States her last time suprapubic catheter was replaced on February 28, she is due for exchange of suprapubic catheter. Denies use of tobacco or alcohol or recreational drugs. Is full code. Patient reports she was on Augmentin recently for UTI which she completed last about 7 to 8 days [employer]. Patient was noted to have C. difficile in the ED and started on Dificid. Patient had history of C. difficile about 6 years ago per her. Maintain contact precautions. Allergies Allergy/AdvReac Type Severity Reaction Status Date / Time cefepime Allergy Severe ANAPHYLAXIS Verified 04/02/23 10:10 fentanyl Allergy Intermediate ITCHY AND Verified 04/02/23 10:10 RASH levofloxacin Allergy Intermediate rash Verified 04/02/23 10:10 vancomycin Allergy Intermediate RASH Verified 04/02/23 10:10 imipenem AdvReac Severe SEIZURE Verified 04/02/23 10:10 Home Medications Medication Instructions Recorded Confirmed Type ascorbic acid (vitamin C) 1,000 mg 1 g PO BID 03/07/18 04/02/23 History tablet buspirone 10 mg tablet 0 mg PO BID 03/07/18 04/02/23 History dantrolene 100 mg capsule 100 mg PO TID 03/07/18 04/02/23 History docusate sodium 100 mg tablet 100 mg PO BID 03/07/18 04/02/23 History fluticasone propionate 50 2 spray intranasal QAM PRN 03/07/18 04/02/23 History mcg/actuation nasal allergies spray,suspension (Flonase Allergy Relief) lorazepam 0.5 mg tablet (Ativan) 0.5 mg PO Q8 PRN Anxiety 03/07/18 04/02/23 History methenamine hippurate 1 gram 1 g PO BID 03/07/18 04/02/23 History tablet (Hiprex) rivaroxaban 20 mg tablet (Xarelto) 20 mg PO QAM 03/07/18 04/02/23 History zolpidem 5 mg tablet (Ambien) 5 mg PO HS PRN Sleep 03/07/18 04/02/23 History nystatin 100,000 unit/gram topical 1 applic topical BID PRN Skin 03/18/18 04/02/23 History powder Irritation guaifenesin 600 mg tablet, 600 mg PO Q12H 04/06/18 04/02/23 History extended release 12 hr (Mucinex) baclofen 20 mg tablet 20 mg PO QID 12/28/18 04/02/23 History duloxetine 60 mg capsule,delayed 60 mg PO BID 02/02/19 04/02/23 History release (Cymbalta) gabapentin 600 mg tablet 0 mg PO QID 02/02/19 04/02/23 History baclofen 10 mg tablet 0 mg PO QID 09/25/19 04/02/23 History docusate sodium 283 mg/5 mL enema 283 mg ID HS 09/25/19 04/02/23 History (Enemeez) gabapentin 300 mg capsule 0 mg PO QID 09/25/19 04/02/23 History potassium chloride 10 mEq 10 meq PO BID 09/29/20 04/02/23 History capsule,extended release acetaminophen 500 mg tablet 1,000 mg PO Q6H PRN Fever Or Pain 01/07/21 04/02/23 History (Tylenol Extra Strength) epinephrine 0.3 mg/0.3 mL 0.3 mg (0.3 mL) IM ONCE PRN 01/07/21 04/02/23 Rx injection, auto-injector (EpiPen anaphylaxis #1 ea 2-Fam) oxycodone-acetaminophen 10 mg-325 1 tab PO Q6 PRN Pain 01/07/21 04/02/23 History mg tablet morphine 15 mg tablet,extended 15 mg PO Q12H 03/27/21 04/02/23 History release citric ac 1980.6 mg-glucono 59.4 30 ml irrigation 3XWK #900 mL 12/11/21 04/02/23 Rx mg-mag carb 980.4 mg/30 mL irrig.soln (Renacidin) aripiprazole 2 mg tablet (Abilify) 1 mg PO DAILY 08/10/22 04/02/23 History albuterol sulfate 90 mcg/actuation 2 inh inhalation Q6H PRN shortness 12/15/22 04/02/23 Rx aerosol inhaler (Proventil HFA) of breath or wheezing #8.5 grams hydroxyzine HCl 25 mg tablet 25 mg PO HS PRN Anxiety 12/15/22 04/02/23 History Flutter Valve #1 ea 12/23/22 02/22/23 Rx Incentive Spirometer #1 ea 12/23/22 02/22/23 Rx melatonin 3 mg tablet 3 mg PO HS PRN Sleep 02/22/23 04/02/23 History trazodone 50 mg tablet 50 mg PO HS PRN Sleep 02/22/23 04/02/23 History Past Med/Surg History Medical History Anxiety and depression Autonomic dysreflexia Bladder stones Chronic hypotension Chronic osteomyelitis Of sacrum with chronic ulceration, being treated by wound clinic. Environmental allergies Seasonal and environmental allergies Former smoker History of DVT (deep vein thrombosis) "UPPER EXTREMITY"- on Xarelto History of seizure 2013 - due to BP issue and autonomic dysreflexia > none since Hx of pneumothorax Hx with chest tube. Treated at [facility]> 6 ys ago Neurogenic bladder Paraplegia at T4 level Port-A-Cath in place 06/15/18= A-PORT REPOSITION= MAC SEDATION AT [facility]. pt unsure of type Restrictive lung mechanics due to neuromuscular disease Suprapubic catheter Placed at [facility] Jan 2022 Surgical History History of appendectomy History of bowel resection 2/2 OBSTRUCTION/SCAR TISSUE History of myringotomy BILAT History of urostomy SUBSEQUENT REMOVAL Hx of surgical procedure Debridement of Stage 4 Ischial Pressure Ulcer with Hamstring Flap Closure Hx of tracheostomy SINCE REMOVED Hx of wisdom tooth extraction PEG (percutaneous endoscopic gastrostomy) status SUBSEQUENT REMOVAL S/P cystoscopy with botox injections S/P flap graft S/P spinal fusion ACDF "C5-C7, C3-T2" S/P thoracentesis Status post amputation of toe second toe, right foot. 07/2019. Status post debridement LEFT ISCHIAL ULCER DEBRIDEMENT/PLACEMENT OF WOUND VAC= 03/14/18= LMA #4 Status post debridement (~07/2018) left ischial ulcer debridement with flap 07/2018: MAC#3, ETT#7.0, Grade 2 View Status post debridement buttock wound 10/16/1920 Grade 1 view with Mac 3 blade Family History Father Diabetes Brother Depression Other No family history of adverse response to anesthesia Social History Smoking Status: Never smoker Tobacco Type: Cigarettes Age Started Using Tobacco: 18; Age Quit Using Tobacco: 28; packs per day: 1; Second Hand Exposure: No; Do You Dip or Chew Tobacco: No; Hx Alcohol Use: No Hx Substance Use: No Preferred Language: Syriac Communication Ability: Effective Visual Impairment: Limited Hearing Ability: Normal Band Saw Operator Required: No Beliefs That Will Affect Care: None marital status: Single Current Living Situation: Family Current Living Situation Comment: Lives with mom, dad and brother current occupational status: disabled How many Children do You have: 0 Feels Safe at Home: Yes Childhood Exposure to Second-Hand Smoke: No Assistive Devices: Glasses and Mechanical Lift Review of Systems Review of Systems: Negative otherwise mentioned in HPI. Physical Exam Physical Exam: GENERAL: Alert and oriented x3. NAD, on RA. HEENT: No pallor, no icterus. Pupils equal, round and reactive to light. Oral mucosa moist. NECK: No JVD, no neck masses. Healed tracheostomy scar noted. Right chest access port noted. HEART: S1 and S2 heard. Regular rate and rhythm. No murmur, no gallop. RESPIRATORY SYSTEM: Normal AP diameter. No accessory muscle use. No wheezing, no crackles. ABDOMEN: Soft, bowel sounds present, mild distention. Positive tenderness on superficial palpation. Suprapubic catheter with no signs of infection noted. CENTRAL NERVOUS SYSTEM: No facial droop. Speech is clear. Obeys simple commands. paraplegia and paresis of BUE noted. EXTREMITIES: No edema, no erythema seen. Urinary bag with light yellow urine collection noted. Results & Data Results & Data Vital Signs (Past 12 Hours) Vital Signs Temp Pulse Pulse Resp BP BP Pulse Ox 04/02/23 08:57 87 18 99/58 L 97 04/02/23 07:15 80 16 109/65 96 04/02/23 06:18 78 04/02/23 06:15 37.8 C H 104 H 17 98/58 L 98 O2 Del Method 04/02/23 08:57 Room Air 04/02/23 07:15 Room Air 04/02/23 06:18 04/02/23 06:15 Room Air Code Status & VTE Plan VTE Prophylaxis Plan VTE Prophylaxis will be ordered: Yes
[2023-04-02] MEDS: SODIUM CHLORIDE 0.9% 1,000 ML IV SCH (11:50)
[2023-04-02] MEDS: POTASSIUM CHLORIDE / WTR 10 MEQ/100 ML PLCT IV SCH ×5 (11:50→21:08)
[2023-04-02] MEDS: FIDAXOMICIN 200 MG TAB PO SCH (11:53)
[2023-04-02] MEDS: ONDANSETRON INJ 2 MG/ML 2 ML VIAL IV PRN ×2 (12:38→18:33)
--- NOTE | 2023-04-02 12:55 | Gastrointestinal Consultation ---
Date of Consultation April 02, 2023 Assessment & Plan (1) C. difficile colitis: 32 year old female with history of cervical spine injury with quadriplegia, DVT on Xarelto, recurrent/chronic pressure ulcer status post debridement and hamstring flap closure May 2021, anxiety, depression, spastic neurogenic bladder s/p suprapubic catheter presenting w/ abd pain, diarrhea admitted with c.diff colitis. As she was already started on Dificid, may continue twice daily for 10 days. Avoid other ABX unless medically necessary. NPO for bowel rest today, if feeling improved, trial of liquids for dinner. Antiemetics PRN. 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 would then add parenteral metronidazole or rectal vancomycin. Thank you for allowing us to participate in the care of this patient. Please call with any acute changes, questions or concerns. Please see addendum below with additional recommendation from my supervising physician. Supervising Physician Co-Signing Physician Notes I saw and evaluated the patient, we were consulted for evaluation of diarrhea in the setting of a recent C. difficile infection. Of note the patient was on a recent outpatient course of antibiotics for urinary tract infection. She was seen in the emergency room today given IV hydration and started on for Fidaxomycin PE: NAD / no icterus / no rebound Impression: Patient presents with new diagnosis of ulcerative WCL infection. This will require use. Recent courses of a penicillin-based antibiotic. I would recommend that you continue on his therapy with the vaccination, as this is what was started in the emergency room. Should this be effective after 2 to 3 days with transition to vancomycin but certainly be considered. Please call with any questions or concerns during the remainder of the admission. Recomendations: Liquid diet today Continue IV hydration Fidaxomyin 200 mg BID x 10 days Please call with any additional questions. History of Present Illness Reason for Consultation: c.diff Requesting Physician: Antoine Attending Physician: Antoine History of Present Illness 32 year old female with history of cervical spine injury with quadriplegia, DVT on Xarelto, recurrent/chronic pressure ulcer status post debridement and hamstring flap closure May 2021, anxiety, depression, spastic neurogenic bladder s/p suprapubic catheteter presenting to the ED w/ cramping and diarrhea - GI asked to evaluate for c.diff. Pt was seen and evaluated, chart reviewed. Notes she had a cdiff infection about 6+ years ago. TReatd with PO ABX. Notes from GI standpoint was doing well. Suggests she has on PO Augmentin for a urinary infection and passed a large BM yesterday followed by liquid, frequent, yellow foul smelling stools. This has been accompanied by abd cramping, spasm etc. She has nuasea, gagging but no vomiting. Tolerating PO intake. She is febrile w/ leukocytosis at 14. WBC 14 HGB 12 HCT 36 PLT 69 INR 1.1 K 2.7 NA 135 AIR TABLE OPERATOR 0.2 Tbili 0.7 AST 14 ALT 11 ALKP 72 Lactate 0.7 CTAP 2022: Mild to moderate circumferential thickening throughout the colon and rectum consistent with a pancolitis. This favors an infectious or inflammatory process. No evidence for bowel obstruction. Prior right hemicolectomy. Allergies Allergy/AdvReac Type Severity Reaction Status Date / Time cefepime Allergy Severe ANAPHYLAXIS Verified 04/02/23 10:10 fentanyl Allergy Intermediate ITCHY AND Verified 04/02/23 10:10 RASH levofloxacin Allergy Intermediate rash Verified 04/02/23 10:10 vancomycin Allergy Intermediate RASH Verified 04/02/23 10:10 imipenem AdvReac Severe SEIZURE Verified 04/02/23 10:10 Home Medications Medication Instructions Recorded Confirmed Type ascorbic acid (vitamin C) 1,000 mg 1 g PO BID 03/07/18 04/02/23 History tablet buspirone 10 mg tablet 0 mg PO BID 03/07/18 04/02/23 History dantrolene 100 mg capsule 100 mg PO TID 03/07/18 04/02/23 History docusate sodium 100 mg tablet 100 mg PO BID 03/07/18 04/02/23 History fluticasone propionate 50 2 spray intranasal QAM PRN 03/07/18 04/02/23 History mcg/actuation nasal allergies spray,suspension (Flonase Allergy Relief) lorazepam 0.5 mg tablet (Ativan) 0.5 mg PO Q8 PRN Anxiety 03/07/18 04/02/23 His tory methenamine hippurate 1 gram 1 g PO BID 03/07/18 04/02/23 History tablet (Hiprex) rivaroxaban 20 mg tablet (Xarelto) 20 mg PO QAM 03/07/18 04/02/23 History zolpidem 5 mg tablet (Ambien) 5 mg PO HS PRN Sleep 03/07/18 04/02/23 History nystatin 100,000 unit/gram topical 1 applic topical BID PRN Skin 03/18/18 04/02/23 History powder Irritation guaifenesin 600 mg tablet, 600 mg PO Q12H 04/06/18 04/02/23 History extended release 12 hr (Mucinex) baclofen 20 mg tablet 20 mg PO QID 12/28/18 04/02/23 History duloxetine 60 mg capsule,delayed 60 mg PO BID 02/02/19 04/02/23 History release (Cymbalta) gabapentin 600 mg tablet 0 mg PO QID 02/02/19 04/02/23 History baclofen 10 mg tablet 0 mg PO QID 09/25/19 04/02/23 History docusate sodium 283 mg/5 mL enema 283 mg ME HS 09/25/19 04/02/23 History (Enemeez) gabapentin 300 mg capsule 0 mg PO QID 09/25/19 04/02/23 History potassium chloride 10 mEq 10 meq PO BID 09/29/20 04/02/23 History capsule,extended release acetaminophen 500 mg tablet 1,000 mg PO Q6H PRN Fever Or Pain 01/07/21 04/02/23 History (Tylenol Extra Strength) epinephrine 0.3 mg/0.3 mL 0.3 mg (0.3 mL) IM ONCE PRN 01/07/21 04/02/23 Rx injection, auto-injector (EpiPen anaphylaxis #1 ea 2-Fam) oxycodone-acetaminophen 10 mg-325 1 tab PO Q6 PRN Pain 01/07/21 04/02/23 History mg tablet morphine 15 mg tablet,extended 15 mg PO Q12H 03/27/21 04/02/23 History release citric ac 1980.6 mg-glucono 59.4 30 ml irrigation 3XWK #900 mL 12/11/21 04/02/23 Rx mg-mag carb 980.4 mg/30 mL irrig.soln (Renacidin) aripiprazole 2 mg tablet (Abilify) 1 mg PO DAILY 08/10/22 04/02/23 History albuterol sulfate 90 mcg/actuation 2 inh inhalation Q6H PRN shortness 12/15/22 04/02/23 Rx aerosol inhaler (Proventil HFA) of breath or wheezing #8.5 grams hydroxyzine HCl 25 mg tablet 25 mg PO HS PRN Anxiety 12/15/22 04/02/23 History Flutter Valve #1 ea 12/23/22 02/22/23 Rx Incentive Spirometer #1 ea 12/23/22 02/22/23 Rx melatonin 3 mg tablet 3 mg PO HS PRN Sleep 02/22/23 04/02/23 History trazodone 50 mg tablet 50 mg PO HS PRN Sleep 02/22/23 04/02/23 History Patient History Medical History Former smoker Suprapubic catheter Placed at [facility] [place] Jan 2022 Anxiety and depression Chronic osteomyelitis Of sacrum with chronic ulceration, being treated by wound clinic. Bladder stones Paraplegia at T4 level Chronic hypotension Restrictive lung mechanics due to neuromuscular disease Hx of pneumothorax Hx with chest tube. Treated at [facility]> 6 ys ago Environmental allergies Seasonal and environmental allergies History of seizure 2013 - due to BP issue and autonomic dysreflexia > none since Port-A-Cath in place 06/15/18= A-PORT REPOSITION= MAC SEDATION AT [facility]. pt unsure of type Autonomic dysreflexia Neurogenic bladder History of DVT (deep vein thrombosis) "UPPER EXTREMITY"- on Xarelto Surgical History Hx of surgical procedure Debridement of Stage 4 Ischial Pressure Ulcer with Hamstring Flap Closure History of myringotomy BILAT Status post debridement buttock wound 10/16/1920 Grade 1 view with Mac 3 blade Status post amputation of toe second toe, right foot. 07/2019. S/P cystoscopy with botox injections Hx of wisdom tooth extraction Status post debridement (~07/2018) left ischial ulcer debridement with flap 07/2018: MAC#3, ETT#7.0, Grade 2 View S/P flap graft Status post debridement LEFT ISCHIAL ULCER DEBRIDEMENT/PLACEMENT OF WOUND VAC= 03/14/18= LMA #4 History of urostomy SUBSEQUENT REMOVAL Hx of tracheostomy SINCE REMOVED History of bowel resection 2/2 OBSTRUCTION/SCAR TISSUE History of appendectomy S/P thoracentesis PEG (percutaneous endoscopic gastrostomy) status SUBSEQUENT REMOVAL S/P spinal fusion ACDF "C5-C7, C3-T2" Family History Father Diabetes Brother Depression Other No family history of adverse response to anesthesia Social History Smoking Status: Never smoker Tobacco Type: Cigarettes Age Started Using Tobacco: 18; Age Quit Using Tobacco: 28; packs per day: 1; Second Hand Exposure: No; Do You Dip or Chew Tobacco: No; Hx Alcohol Use: No Hx Substance Use: No Preferred Language: Burmese Communication Ability: Effective Visual Impairment: Limited Hearing Ability: Normal Architectural Associate Required: No Beliefs That Will Affect Care: None marital status: Single Current Living Situation: Family Current Living Situation Comment: Lives with mom, dad and brother current occupational status: disabled How many Children do You have: 0 Feels Safe at Home: Yes Childhood Exposure to Second-Hand Smoke: No Assistive Devices: Glasses and Mechanical Lift Review of Systems Review of Systems: All systems reviewed & are unremarkable except as noted in HPI & below Physical Exam Constitutional: WD/WN, vitals as above Respiratory: normal respiratory effort Cardiovascular: Rate/Rhythm: regular rate and regular rhythm Gastrointestinal (Abdomen): Percussion/Palpation: + abdomen tender and abdomen soft; no guarding and abdomen not rigid Skin: no rashes, warm and dry Results & Data Vital Signs (Past 12 Hours) Vital Signs Temp Pulse Pulse Resp BP BP Pulse Ox 04/02/23 11:00 82 20 108/69 96 04/02/23 10:48 79 20 110/68 98 04/02/23 10:48 78 20 98 04/02/23 08:57 87 18 99/58 L 97 04/02/23 07:15 80 16 109/65 96 04/02/23 06:18 78 04/02/23 06:15 37.8 C H 104 H 17 98/58 L 98 O2 Del Method 04/02/23 11:00 Room Air 04/02/23 10:48 Room Air 04/02/23 10:48 Room Air 04/02/23 08:57 Room Air 04/02/23 07:15 Room Air 04/02/23 06:18 04/02/23 06:15 Room Air Laboratory Results 04/02/23 04/02/23 04/02/23 Range/Units Unknown 07:21 06:40 WBC 14.85 H (4.8-10.8) K/ul RBC 4.16 L (4.20-5.40) M/uL Hgb 12.4 (12.0-16.0) g/dl Hct 36.7 L (37.0-47.0) % MCV 88.2 (80.0-100.0) fL MCH 29.8 (25.0-34.0) pg MCHC 33.8 (32.0-36.0) g/dL RDW Std Deviation 42.5 (36.4-46.3) fL RDW Coeff of Andres 13.0 (11.5-14.5) % Plt Count 69 L (130-400) K/uL MPV 10.7 (9.4-12.4) fL Immature Gran % (Auto) 1.3 % Neut % (Auto) 72.9 % Lymph % (Auto) 13.2 % [place] % (Auto) 11.9 % Eos % (Auto) 0.5 % Baso % (Auto) 0.2 % Neut # (Auto) 10.82 H (1.40-6.50) K/uL Lymph # (Auto) 1.96 (1.20-3.40) K/uL [place] # (Auto) 1.76 H (0.11-0.59) K/uL Eos # (Auto) 0.08 (0.00-0.50) K/uL Baso # (Auto) 0.03 (0.00-0.20) K/uL Immature Gran # (Auto) 0.20 (0.01-0.20) K/uL Sodium 135 L (136-145) mmol/L Potassium 2.7 L (3.5-5.1) mmol/L Chloride 101 (98-107) mmol/L Carbon Dioxide 28 (21-32) mmol/L Anion Gap 6 (3-11) BUN 3 L (6-23) mg/dl Creatinine < 0.20 L (0.6-1.2) mg/dl Est Cr Clr Drug Dosing 403.9 ml/min Est GFR ( Amer) > 150.0 ml/min Est GFR (Non-Af Amer) > 150.0 ml/min BUN/Creatinine Ratio TNP Glucose 101 H (70-99(Fasting)) mg/dl Lactate 0.7 (0.4-2.0) mmol/L Calcium 8.7 (8.6-10.3) mg/dl Magnesium 1.6 L (1.7-2.4) mg/dl Total Bilirubin 0.7 (0.2-1.0) mg/dl AST 14 (13-39) U/L ALT 11 (7-52) U/L Alkaline Phosphatase 72 (34-104) U/L Total Protein 6.1 (6.0-8.3) gm/dl Albumin 3.7 (3.4-5.0) gm/dl Globulin 2.4 L (2.5-4.0) gm/dl Albumin/Globulin Ratio 1.5 (0.9-2) Lipase 6 L (11-82) U/L Urine Color Yellow Urine Appearance Cloudy A (Clear) Urine pH 7.0 (4.5-7.5) Ur Specific [place] 1.005 (1.000-1.030) Urine Protein Negative (Negative) Urine Glucose (UA) Negative (Negative) Urine Ketones 1+ H (Negative) Urine Blood Trace H (Negative) Urine Nitrite Positive A (Negative) Urine Bilirubin Negative (Negative) Urine Urobilinogen Negative (Negative) Ur Leukocyte Esterase 3+ H (Negative) Urine WBC (Auto) >30 H (0-5) /hpf Urine RBC (Auto) 0-4 (0-4) /hpf U Hyaline Cast (Auto) 1-5 (0-5) /lpf U Epithel Cells (Auto) 10-20 H (0-5) /lpf Urine Bacteria (Auto) 2+ H (Negative) Urine Yeast Budding w/ Hyphae A (None Prsent) Stl C. cayetanensis PCR (NotDetected) Stool Rotavirus A PCR (NotDetected) Stl Adenov F 40/41 PCR (NotDetected) Stool Astrovirus (PCR) (NotDetected) Stool Campylobacter PCR (NotDetected) Stl C. diff Tox B Gene (Neg) Stl C.difficile Tox A&B (Negative) Stool Cryptosporidium PCR (NotDetected) Stl E.coli Shiga Tox PCR (NotDetected) Stool E coli O157 PCR (NotDetected) Stl Enterotoxigenic E PCR (NotDetected) Stool EPEC (PCR) (NotDetected) Stool EAEC (PCR) (NotDetected) Stl E. histolytica PCR (NotDetected) Stool Giardia Lamblia PCR (NotDetected) Stool Salmonella PCR (NotDetected) Stool Sapovirus (PCR) (NotDetected) Stl P. shigelloides PCR (NotDetected) Stl Shigella/EIEC PCR (NotDetected) St Y.enterocolitica PCR (NotDetected) Stool Vibrio (PCR) (NotDetected) Stl Vibrio cholerae PCR (NotDetected) Stl Norovirus GI/GII PCR (NotDetected) 04/02/23 Range/Units 06:00 WBC (4.8-10.8) K/ul RBC (4.20-5.40) M/uL Hgb (12.0-16.0) g/dl Hct (37.0-47.0) % MCV (80.0-100.0) fL MCH (25.0-34.0) pg MCHC (32.0-36.0) g/dL RDW Std Deviation (36.4-46.3) fL RDW Coeff of Andres (11.5-14.5) % Plt Count (130-400) K/uL MPV (9.4-12.4) fL Immature Gran % (Auto) % Neut % (Auto) % Lymph % (Auto) % [place] % (Auto) % Eos % (Auto) % Baso % (Auto) % Neut # (Auto) (1.40-6.50) K/uL Lymph # (Auto) (1.20-3.40) K/uL [place] # (Auto) (0.11-0.59) K/uL Eos # (Auto) (0.00-0.50) K/uL Baso # (Auto) (0.00-0.20) K/uL Immature Gran # (Auto) (0.01-0.20) K/uL Sodium (136-145) mmol/L Potassium (3.5-5.1) mmol/L Chloride (98-107) mmol/L Carbon Dioxide (21-32) mmol/L Anion Gap (3-11) BUN (6-23) mg/dl Creatinine (0.6-1.2) mg/dl Est Cr Clr Drug Dosing ml/min Est GFR ( Amer) ml/min Est GFR (Non-Af Amer) ml/min BUN/Creatinine Ratio Glucose (70-99(Fasting)) mg/dl Lactate (0.4-2.0) mmol/L Calcium (8.6-10.3) mg/dl Magnesium (1.7-2.4) mg/dl Total Bilirubin (0.2-1.0) mg/dl AST (13-39) U/L ALT (7-52) U/L Alkaline Phosphatase (34-104) U/L Total Protein (6.0-8.3) gm/dl Albumin (3.4-5.0) gm/dl Globulin (2.5-4.0) gm/dl Albumin/Globulin Ratio (0.9-2) Lipase (11-82) U/L Urine Color Urine Appearance (Clear) Urine pH (4.5-7.5) Ur Specific [place] (1.000-1.030) Urine Protein (Negative) Urine Glucose (UA) (Negative) Urine Ketones (Negative) Urine Blood (Negative) Urine Nitrite (Negative) Urine Bilirubin (Negative) Urine Urobilinogen (Negative) Ur Leukocyte Esterase (Negative) Urine WBC (Auto) (0-5) /hpf Urine RBC (Auto) (0-4) /hpf U Hyaline Cast (Auto) (0-5) /lpf U Epithel Cells (Auto) (0-5) /lpf Urine Bacteria (Auto) (Negative) Urine Yeast (None Prsent) Stl C. cayetanensis PCR Not Detected (NotDetected) Stool Rotavirus A PCR Not Detected (NotDetected) Stl Adenov F 40/41 PCR Not Detected (NotDetected) Stool Astrovirus (PCR) Not Detected (NotDetected) Stool Campylobacter PCR Not Detected (NotDetected) Stl C. diff Tox B Gene Positive Cdiff Gene H (Neg) Stl C.difficile Tox A&B Positive Cdiff Toxin A* (Negative) Stool Cryptosporidium PCR Not Detected (NotDetected) Stl E.coli Shiga Tox PCR Not Detected (NotDetected) Stool E coli O157 PCR Not Detected (NotDetected) Stl Enterotoxigenic E PCR Not Detected (NotDetected) Stool EPEC (PCR) Not Detected (NotDetected) Stool EAEC (PCR) Not Detected (NotDetected) Stl E. histolytica PCR Not Detected (NotDetected) Stool Giardia Lamblia PCR Not Detected (NotDetected) Stool Salmonella PCR Not Detected (NotDetected) Stool Sapovirus (PCR) Not Detected (NotDetected) Stl P. shigelloides PCR Not Detected (NotDetected) Stl Shigella/EIEC PCR Not Detected (NotDetected) St Y.enterocolitica PCR Not Detected (NotDetected) Stool Vibrio (PCR) Not Detected (NotDetected) Stl Vibrio cholerae PCR Not Detected (NotDetected) Stl Norovirus GI/GII PCR Not Detected (NotDetected)
[2023-04-02] MEDS ORDERED: ZOLPIDEM TARTRATE 5 MG TAB PO PRN (14:05)
[2023-04-02] MEDS ORDERED: ALBUTEROL HFA 8 GM INHALER INH PRN (14:05)
[2023-04-02] MEDS ORDERED: LORazepam 0.5 MG TAB PO PRN (14:05)
[2023-04-02] MEDS ORDERED: FLUTICASONE PROPIONATE NA SPR 16 GM BTL PRN (14:05)
[2023-04-02] MEDS ORDERED: hydrOXYzine HCl 25 MG TAB PO PRN (14:05)
--- NOTE | 2023-04-02 14:10 | Emergency Department Note ---
History of Present Illness General Chief complaint: Diarrhea Stated complaint: Diarrhea, Nausea, Dehydration Time Seen by Provider: 04/02/23 06:36 History of Present Illness Provider Complaint: + nausea, + vomiting, + diarrhea and + abdominal pain Onset (ago): day(s) 2 Description of Vomiting: no bilious, no blood-streaked, no bloody or no coffee grounds Description of Diarrhea: + watery; no tarry, no blood-streaked or no bloody (bright red) Location of pain: + diffuse Severity: moderate Maximum Pain Intensity: 4 Current Pain Intensity: 4 Quality: + cramping Pain Consistency: + intermittent Relieved By: + none Exacerbated By: + eating Context: no foreign travel, no recent antibiotic use, no alcohol abuse, no anticoagulant use, no NSAID use, no smoking or no marijuana use Associated symptoms: + fever/chills; no myalgias, no chest pain, no headaches or no rash Home Medications Medication Instructions Recorded Confirmed Type ascorbic acid (vitamin C) 1,000 mg 1 g PO BID 03/07/18 04/02/23 History tablet buspirone 10 mg tablet 0 mg PO BID 03/07/18 04/02/23 History dantrolene 100 mg capsule 100 mg PO TID 03/07/18 04/02/23 History docusate sodium 100 mg tablet 100 mg PO BID 03/07/18 04/02/23 History fluticasone propionate 50 2 spray intranasal QAM PRN 03/07/18 04/02/23 History mcg/actuation nasal allergies spray,suspension (Flonase Allergy Relief) lorazepam 0.5 mg tablet (Ativan) 0.5 mg PO Q8 PRN Anxiety 03/07/18 04/02/23 History methenamine hippurate 1 gram 1 g PO BID 03/07/18 04/02/23 History tablet (Hiprex) rivaroxaban 20 mg tablet (Xarelto) 20 mg PO QAM 03/07/18 04/02/23 History zolpidem 5 mg tablet (Ambien) 5 mg PO HS PRN Sleep 03/07/18 04/02/23 History nystatin 100,000 unit/gram topical 1 applic topical BID PRN Skin 03/18/18 04/02/23 History powder Irritation guaifenesin 600 mg tablet, 600 mg PO Q12H 04/06/18 04/02/23 History extended release 12 hr (Mucinex) baclofen 20 mg tablet 20 mg PO QID 12/28/18 04/02/23 History duloxetine 60 mg capsule,delayed 60 mg PO BID 02/02/19 04/02/23 History release (Cymbalta) gabapentin 600 mg tablet 0 mg PO QID 02/02/19 04/02/23 History baclofen 10 mg tablet 0 mg PO QID 09/25/19 04/02/23 History docusate sodium 283 mg/5 mL enema 283 mg TN HS 09/25/19 04/02/23 History (Enemeez) gabapentin 300 mg capsule 0 mg PO QID 09/25/19 04/02/23 History potassium chloride 10 mEq 10 meq PO BID 09/29/20 04/02/23 History capsule,extended release acetaminophen 500 mg tablet 1,000 mg PO Q6H PRN Fever Or Pain 01/07/21 04/02/23 History (Tylenol Extra Strength) epinephrine 0.3 mg/0.3 mL 0.3 mg (0.3 mL) IM ONCE PRN 01/07/21 04/02/23 Rx injection, auto-injector (EpiPen anaphylaxis #1 ea 2-Fam) oxycodone-acetaminophen 10 mg-325 1 tab PO Q6 PRN Pain 01/07/21 04/02/23 History mg tablet morphine 15 mg tablet,extended 15 mg PO Q12H 03/27/21 04/02/23 History release citric ac 1980.6 mg-glucono 59.4 30 ml irrigation 3XWK #900 mL 12/11/21 04/02/23 Rx mg-mag carb 980.4 mg/30 mL irrig.soln (Renacidin) aripiprazole 2 mg tablet (Abilify) 1 mg PO DAILY 08/10/22 04/02/23 History albuterol sulfate 90 mcg/actuation 2 inh inhalation Q6H PRN shortness 12/15/22 04/02/23 Rx aerosol inhaler (Proventil HFA) of breath or wheezing #8.5 grams hydroxyzine HCl 25 mg tablet 25 mg PO HS PRN Anxiety 12/15/22 04/02/23 History Flutter Valve #1 ea 12/23/22 02/22/23 Rx Incentive Spirometer #1 ea 12/23/22 02/22/23 Rx melatonin 3 mg tablet 3 mg PO HS PRN Sleep 02/22/23 04/02/23 History trazodone 50 mg tablet 50 mg PO HS PRN Sleep 02/22/23 04/02/23 History Allergies Allergy/AdvReac Type Severity Reaction Status Date / Time cefepime Allergy Severe ANAPHYLAXIS Verified 04/02/23 10:10 fentanyl Allergy Intermediate ITCHY AND Verified 04/02/23 10:10 RASH levofloxacin Allergy Intermediate rash Verified 04/02/23 10:10 vancomycin Allergy Intermediate RASH Verified 04/02/23 10:10 imipenem AdvReac Severe SEIZURE Verified 04/02/23 10:10 Past Med/Surg History Medical History Former smoker Suprapubic catheter Placed at [facility] Jan 2022 Anxiety and depression Chronic osteomyelitis Of sacrum with chronic ulceration, being treated by wound clinic. Bladder stones Paraplegia at T4 level Chronic hypotension Restrictive lung mechanics due to neuromuscular disease Hx of pneumothorax Hx with chest tube. Treated at [facility]> 6 ys ago Environmental allergies Seasonal and environmental allergies History of seizure 2013 - due to BP issue and autonomic dysreflexia > none since Port-A-Cath in place 06/15/18= A-PORT REPOSITION= MAC SEDATION AT [facility]. pt unsure of type Autonomic dysreflexia Neurogenic bladder History of DVT (deep vein thrombosis) "UPPER EXTREMITY"- on Xarelto Surgical History Hx of surgical procedure Debridement of Stage 4 Ischial Pressure Ulcer with Hamstring Flap Closure History of myringotomy BILAT Status post debridement buttock wound 10/16/1920 Grade 1 view with Mac 3 blade Status post amputation of toe second toe, right foot. 07/2019. S/P cystoscopy with botox injections Hx of wisdom tooth extraction Status post debridement (~07/2018) left ischial ulcer debridement with flap 07/2018: MAC#3, ETT#7.0, Grade 2 View S/P flap graft Status post debridement LEFT ISCHIAL ULCER DEBRIDEMENT/PLACEMENT OF WOUND VAC= 03/14/18= LMA #4 History of urostomy SUBSEQUENT REMOVAL Hx of tracheostomy SINCE REMOVED History of bowel resection 2/2 OBSTRUCTION/SCAR TISSUE History of appendectomy S/P thoracentesis PEG (percutaneous endoscopic gastrostomy) status SUBSEQUENT REMOVAL S/P spinal fusion ACDF "C5-C7, C3-T2" Family History Father Diabetes Brother Depression Other No family history of adverse response to anesthesia Social History Smoking Status: Never smoker Tobacco Type: Cigarettes Age Started Using Tobacco: 18; Age Quit Using Tobacco: 28; packs per day: 1; Second Hand Exposure: No; Do You Dip or Chew Tobacco: No; Hx Alcohol Use: No Hx Substance Use: No Preferred Language: Mongolian Communication Ability: Effective Visual Impairment: Limited Hearing Ability: Normal Inspector Integrated [employer] Required: No Beliefs That Will Affect Care: None marital status: Single Current Living Situation: Family Current Living Situation Comment: Lives with mom, dad and brother current occupational status: disabled How many Children do You have: 0 Feels Safe at Home: Yes Childhood Exposure to Second-Hand Smoke: No Assistive Devices: Glasses and Mechanical Lift Physical Exam 2 Vital Signs: Vital Signs - 24 hr 04/02/23 06:15 04/02/23 06:18 04/02/23 07:15 Temperature 37.8 C H Temperature Source Oral Pulse Rate 104 H 78 Pulse Rate [Apical ] 80 Pulse Rhythm Regular Pulse Rhythm [Apic al] Regular Pulse Strength Normal Pulse Strength [Ap ical] Normal Respiratory Rate 17 16 Respiratory Effort / Characteristics Non-Labored Sponta neous Non-Labored Sponta neous Respiratory Depth Normal Normal Respiratory Patter n Regular Regular Blood Pressure 98/58 L Blood Pressure [Ri ght Arm] 109/65 Blood Pressure Effie n 71 Blood Pressure Effie n [Right Arm] 79 Blood Pressure Pos ition Sitting Blood Pressure Pos ition [Right Arm] Lying Pulse Oximetry 98 96 Oxygen Delivery Me thod Room Air Room Air Sepsis Recent Feve r Within 48 Hours No Sepsis New/Unexpla ined Change in Men christofer Status N/A Sepsis Action Take n by Nursing No Action Required 04/02/23 08:57 Temperature Temperature Source Pulse Rate Pulse Rate [Apical ] 87 Pulse Rhythm Pulse Rhythm [Apic al] Regular Pulse Strength Pulse Strength [Ap ical] Normal Respiratory Rate 18 Respiratory Effort / Characteristics Non-Labored Sponta neous Respiratory Depth Normal Respiratory Patter n Regular Blood Pressure Blood Pressure [Ri ght Arm] 99/58 L Blood Pressure Effie n Blood Pressure Effie n [Right Arm] 71 Blood Pressure Pos ition Blood Pressure Pos ition [Right Arm] Lying Pulse Oximetry 97 Oxygen Delivery Me thod Room Air Sepsis Recent Feve r Within 48 Hours Sepsis New/Unexpla ined Change in Men christofer Status Sepsis Action Take n by Nursing Physical Exam: Physical Exam GENERAL: oriented to person, place, and time. appears well-developed and well- nourished. HENT: Exam performed. - Head: Normocephalic and atraumatic. EYES: Conjunctivae and EOM are normal. Right eye exhibits no discharge. Left eye exhibits no discharge. No scleral icterus. NECK: Normal range of motion. Neck supple. No JVD present. CV: Normal rate, regular rhythm, normal heart sounds and intact distal pulses. There is no peripheral edema. Palpable radial pulses bue. PULM/CHEST: Effort normal and breath sounds normal. No respiratory distress. No stridor. no wheezes. no rales. ABD: The abdomen is soft. There is diffuse tenderness to palpation. No guarding or rigidity. : Bonilla catheter in place. NEURO: Quadriplegic, at baseline neurologically. Course Course 0636: The patient was evaluated in room B10. A complete history and physical exam was performed Cardiac monitoring: An order was placed for continuous cardiac monitoring. The monitor shows a rate of 70 with sinus rhythm interpreted by me 0950: Vital signs stable. Labs show white blood cell count 14.85. Potassium 2.7. Magnesium 1.6. Urinalysis is from Bonilla catheter and thought to be contaminated sample. C. difficile positive. CT abdomen pelvis shows pancolitis. Given the patient's allergy to vancomycin and her white blood cell count of 14.85 and reported fevers, the patient will be treated with Dificid. Potassium replacement started in the emergency department. Patient will be admitted to the [facility] team Administered Medications Fidaxomicin (Fidaxomicin 200 Mg Tab) 200 mg PO BID [facility] Stop: 04/12/23 09:59 Last Admin: 04/02/23 11:53 Dose: 200 mg Documented By: SUHA Sodium Chloride (Nss) 1,000 mls @ 80 mls/hr IV .[id number] [facility] Stop: 04/03/23 12:14 Last Admin: 04/02/23 11:50 Dose: 80 mls/hr Documented By: SUHA Ondansetron HCl (Ondansetron Inj 2 Mg/Ml 2 Ml Vial) 4 mg IV Q6H PRN PRN Reason: Nausea Stop: 05/02/23 10:47 Last Admin: 04/02/23 12:38 Dose: 4 mg Documented By: SUHA Discontinued Medications Sodium Chloride (Nss) 2,000 mls @ 999 mls/hr IV .Q2H1M ONE Stop: 04/02/23 08:06 Last Infusion: 04/02/23 09:50 Dose: Infused Documented By: Infusion: 04/02/23 08:32 Dose: Infused Documented By: Admin: 04/02/23 06:49 Dose: 999 mls/hr Documented By: DARSHANA Potassium Chloride (K Bimal / Wtr) 10 meq in 100 mls @ 100 mls/hr IV Q1H [facility] Stop: 04/02/23 11:59 Last Admin: 04/02/23 13:27 Dose: 100 mls/hr Documented By: Infusion: 04/02/23 12:50 Dose: Infused Documented By: Admin: 04/02/23 11:50 Dose: 100 mls/hr Documented By: SUHA Ioversol (Optiray 320 100ml) 90 ml IV ONCE ONE Stop: 04/02/23 08:39 Last Admin: 04/02/23 08:38 Dose: 90 ml Documented By: OWEN Ondansetron HCl (Ondansetron Inj 2 Mg/Ml 2 Ml Vial) 4 mg IV NOW STA Stop: 04/02/23 07:12 Last Admin: 04/02/23 08:51 Dose: 4 mg Documented By: SUHA Oxycodone/Acetaminophen (Oxycodone/Acetaminophen 5mg/325mg Tab) 1 tab PO NOW STA Stop: 04/02/23 10:02 Last Admin: 04/02/23 11:50 Dose: 1 tab Documented By: SUHA Potassium Chloride (Potassium Chloride 10 Meq Tabcr) 40 meq PO NOW STA Stop: 04/02/23 09:49 Last Admin: 04/02/23 11:53 Dose: 40 meq Documented By: SUHA Medical Decision Making Laboratory Data Attestation: I reviewed the patient's lab results. 04/02/23 06:40 04/02/23 06:40 Lab Results 04/02/23 04/02/23 04/02/23 Range/Units 06:00 06:40 07:21 WBC 14.85 H (4.8-10.8) K/ul RBC 4.16 L (4.20-5.40) M/uL Hgb 12.4 (12.0-16.0) g/dl Hct 36.7 L (37.0-47.0) % MCV 88.2 (80.0-100.0) fL MCH 29.8 (25.0-34.0) pg MCHC 33.8 (32.0-36.0) g/dL RDW Std Deviation 42.5 (36.4-46.3) fL RDW Coeff of Andres 13.0 (11.5-14.5) % Plt Count 69 L (130-400) K/uL MPV 10.7 (9.4-12.4) fL Immature Gran % (Auto) 1.3 % Neut % (Auto) 72.9 % Lymph % (Auto) 13.2 % [place] % (Auto) 11.9 % Eos % (Auto) 0.5 % Baso % (Auto) 0.2 % Neut # (Auto) 10.82 H (1.40-6.50) K/uL Lymph # (Auto) 1.96 (1.20-3.40) K/uL [place] # (Auto) 1.76 H (0.11-0.59) K/uL Eos # (Auto) 0.08 (0.00-0.50) K/uL Baso # (Auto) 0.03 (0.00-0.20) K/uL Immature Gran # (Auto) 0.20 (0.01-0.20) K/uL Sodium 135 L (136-145) mmol/L Potassium 2.7 L (3.5-5.1) mmol/L Chloride 101 (98-107) mmol/L Carbon Dioxide 28 (21-32) mmol/L Anion Gap 6 (3-11) BUN 3 L (6-23) mg/dl Creatinine < 0.20 L (0.6-1.2) mg/dl Est Cr Clr Drug Dosing 403.9 ml/min Est GFR ( Amer) > 150.0 ml/min Est GFR (Non-Af Amer) > 150.0 ml/min BUN/Creatinine Ratio TNP Glucose 101 H (70-99(Fasting)) mg/dl Lactate 0.7 (0.4-2.0) mmol/L Calcium 8.7 (8.6-10.3) mg/dl Magnesium 1.6 L (1.7-2.4) mg/dl Total Bilirubin 0.7 (0.2-1.0) mg/dl AST 14 (13-39) U/L ALT 11 (7-52) U/L Alkaline Phosphatase 72 (34-104) U/L Total Protein 6.1 (6.0-8.3) gm/dl Albumin 3.7 (3.4-5.0) gm/dl Globulin 2.4 L (2.5-4.0) gm/dl Albumin/Globulin Ratio 1.5 (0.9-2) Lipase 6 L (11-82) U/L Stl C. cayetanensis PCR Not Detected (NotDetected) Stool Rotavirus A PCR Not Detected (NotDetected) Stl Adenov F 40/41 PCR Not Detected (NotDetected) Stool Astrovirus (PCR) Not Detected (NotDetected) Stool Campylobacter PCR Not Detected (NotDetected) Stl C. diff Tox B Gene Positive Cdiff Gene H (Neg) Stl C.difficile Tox A&B Positive Cdiff Toxin A* (Negative) Stool Cryptosporidium PCR Not Detected (NotDetected) Stl E.coli Shiga Tox PCR Not Detected (NotDetected) Stool E coli O157 PCR Not Detected (NotDetected) Stl Enterotoxigenic E PCR Not Detected (NotDetected) Stool EPEC (PCR) Not Detected (NotDetected) Stool EAEC (PCR) Not Detected (NotDetected) Stl E. histolytica PCR Not Detected (NotDetected) Stool Giardia Lamblia PCR Not Detected (NotDetected) Stool Salmonella PCR Not Detected (NotDetected) Stool Sapovirus (PCR) Not Detected (NotDetected) Stl P. shigelloides PCR Not Detected (NotDetected) Stl Shigella/EIEC PCR Not Detected (NotDetected) St Y.enterocolitica PCR Not Detected (NotDetected) Stool Vibrio (PCR) Not Detected (NotDetected) Stl Vibrio cholerae PCR Not Detected (NotDetected) Stl Norovirus GI/GII PCR Not Detected (NotDetected) [facility] Narrative 0636: The patient was evaluated in room B10. A complete history and physical exam was performed Cardiac monitoring: An order was placed for continuous cardiac monitoring. The monitor shows a rate of 70 with sinus rhythm interpreted by me 0950: Vital signs stable. Labs show white blood cell count 14.85. Potassium 2.7. Magnesium 1.6. Urinalysis is from Bonilla catheter and thought to be contaminated sample. C. difficile positive. CT abdomen pelvis shows pancolitis. Given the patient's allergy to vancomycin and her white blood cell count of 14.85 and reported fevers, the patient will be treated with Dificid. Potassium replacement started in the emergency department. Patient will be admitted to the [facility] team Impression & Plan C. difficile colitis, Acute hypokalemia Discharge Plan Visit Data Chief Complaint: Diarrhea Stated Complaint: Diarrhea, Nausea, Dehydration ED Provider: Amilcar Cash Discharge Problem: C. difficile colitis, Acute hypokalemia Patient Disposition: Admitted As Inpatient Discharge Instructions Interventions: ED Discharge Assessment Last Done: 04/02/23 13:46
[2023-04-02] MEDS ORDERED: POTASSIUM ACETATE/NSS 10 MEQ/105 ML BAG IV STA (18:09)
[2023-04-02] MEDS: DANTROLENE SODIUM 25 MG CAP PO SCH (18:27)
[2023-04-02] MEDS: guaiFENesin 600 MG TABCR PO SCH (18:37)
[2023-04-02] MEDS: BACLOFEN 20 MG TAB PO SCH (18:38)
[2023-04-02] MEDS: GABAPENTIN 600 MG TAB PO SCH (18:38)
[2023-04-02] MEDS: BACLOFEN 10 MG TAB PO SCH (18:39)
[2023-04-02] MEDS: DULoxetine HCL 60 MG CAP PO SCH (18:39)
[2023-04-02] MEDS: GABAPENTIN 300 MG CAP PO SCH (18:39)
[2023-04-02] MEDS: MAGNESIUM SULFATE / D5W 1 GM/100 ML BAG IV SCH ×3 (20:22→21:08)
[2023-04-02] MEDS: MoRPHine SULFATE CR 15 MG TABCR PO SCH (20:23)
[2023-04-02] MEDS: PROMETHAZINE HCL 12.5 MG in SODIUM CHLORIDE 0.9% 50 ML IV PRN (21:01)
[2023-04-03] MEDS: ONDANSETRON INJ 2 MG/ML 2 ML VIAL IV PRN ×3 (00:20→21:30)
[2023-04-03] MEDS: busPIRone 5 MG TAB PO SCH ×3 (00:20→21:34)
[2023-04-03] MEDS: guaiFENesin 600 MG TABCR PO SCH ×3 (00:23→21:36)
[2023-04-03] MEDS: METHENAMINE HIPPURATE 1 GM TAB PO SCH ×3 (00:23→21:35)
[2023-04-03] MEDS: BACLOFEN 20 MG TAB PO SCH ×5 (00:24→21:34)
[2023-04-03] MEDS: BACLOFEN 10 MG TAB PO SCH ×5 (00:24→21:33)
[2023-04-03] MEDS: GABAPENTIN 300 MG CAP PO SCH ×5 (00:25→21:35)
[2023-04-03] MEDS: DANTROLENE SODIUM 25 MG CAP PO SCH ×4 (00:25→21:35)
[2023-04-03] MEDS: MELATONIN 3 MG TAB PO SCH ×2 (00:26→21:33)
[2023-04-03] MEDS: FIDAXOMICIN 200 MG TAB PO SCH ×3 (00:26→21:47)
[2023-04-03] MEDS: RIVAROXABAN 20 MG TAB PO SCH ×2 (00:26→16:28)
[2023-04-03] MEDS: POTASSIUM CHLORIDE 10 MEQ TABCR PO SCH ×3 (00:26→21:34)
[2023-04-03] MEDS: oxyCODONE/ACETAMINOPHEN 10-325 TAB PO PRN ×2 (00:45→21:33)
[2023-04-03] MEDS: GABAPENTIN 600 MG TAB PO SCH ×5 (00:45→21:34)
[2023-04-03] MEDS: SODIUM CHLORIDE 0.9% 1,000 ML IV SCH ×3 (01:08→18:22)
[2023-04-03] MEDS ORDERED: SODIUM CHLORIDE 0.9% 1,000 ML IV ONE (01:16)
[2023-04-03] MEDS ORDERED: metroNIDAZOLE 500 MG/100 ML BAG IV STA (01:21)
[2023-04-03] MEDS ORDERED: NSS + 20MEQ KCL 20 MEQ/1,000 ML BAG IV ONE (01:22)
[2023-04-03] MEDS: MoRPHine SULFATE CR 15 MG TABCR PO SCH ×3 (01:34→21:33)
[2023-04-03] MEDS ORDERED: KETOROLAC TROMETHAMINE 15 MG/ML VIAL IV ONE (02:44)
[2023-04-03] MEDS: PROMETHAZINE HCL 12.5 MG in SODIUM CHLORIDE 0.9% 50 ML IV PRN ×3 (03:30→22:17)
[2023-04-03] MEDS: ARIPIprazole 1 MG/ML ORAL SOLN 150 ML BTL PO SCH (08:48)
[2023-04-03] MEDS: DULoxetine HCL 60 MG CAP PO SCH ×2 (08:50→15:54)
[2023-04-03 09:26] LABS: Hematocrit (blood only) 32.1 % (37.0-47.0); Hemoglobin 10.6 g/dl (12.0-16.0); Mean Corpuscular Hemoglobin 29.9 pg (25.0-34.0); Mean Corpuscular Volume 90.4 fL (80.0-100.0); Mean Platelet Volume 10.6 fL (9.4-12.4); Platelet Count 77 K/uL (130-400); RDW Coefficient of Variation 13.3 % (11.5-14.5); RDW Standard Deviation 44.6 fL (36.4-46.3); Red Blood Count 3.55 M/uL (4.20-5.40)
[2023-04-03 09:27] LABS: Anion Gap 9 (3-11); Basophils # (auto) 0.02 K/uL (0.00-0.20); Basophils % (auto) 0.2 %; Blood Urea Nitrogen 2 mg/dl (6-23); Calcium 7.5 mg/dl (8.6-10.3); Carbon Dioxide 17 mmol/L (21-32); Chloride 112 mmol/L (98-107); Creatinine Clr Calc Pharmacy 412.3 ml/min; Dohle Bodies 1+; Eosinophils # (auto) 0.13 K/uL (0.00-0.50); Eosinophils % (auto) 1.4 %; Est GFR (African American) > 150.0 ml/min; Est GFR (Non-African American) > 150.0 ml/min; Glucose 74 mg/dl (70-99(Fasting)); Immature Granulocytes # (auto) 0.32 K/uL (0.01-0.20); Immature Granulocytes % (auto) 3.3 %; Lymphocytes # (auto) 0.95 K/uL (1.20-3.40); Lymphocytes % (auto) 9.9 %; Monocytes # (auto) 0.93 K/uL (0.11-0.59); Monocytes % (auto) 9.7 %; Neutrophils # (auto) 7.25 K/uL (1.40-6.50); Neutrophils % (auto) 75.5 %; Phosphorus 2.1 mg/dl (2.5-4.9); Platelet Estimate Decreased (Normal); Polychromasia 1+; Potassium 3.3 mmol/L (3.5-5.1); Sodium 138 mmol/L (136-145)
--- NOTE | 2023-04-03 13:19 | Hospitalist Progress Note ---
Date of Service April 03, 2023 Assessment & Plan (1) C. difficile colitis: Plan C. difficile colitis Sepsis POA: Likely secondary to above. WBC and heart rate elevated ISO C. difficile colitis Electrolyte abnormalities Patient was recently treated with Augmentin x 10-day course which she completed last per patient. Patient presents with diarrhea for 2 days associated with abdominal pain, nausea, dry heaves, poor appetite. Admitting labs and imagings reviewed. Potassium and magnesium repleted. IV fluids until p.o. intake improves. Monitor and replete electrolytes. Patient is started on Dificid, continue with same. GI consult. 04/03 (+) fever overnight BM slowing down continue Fidaxomicin IV fluids clear liquids monitor closely Abnormal urine analysis Status suprapubic catheter Abnormal urine analysis likely secondary to colonization iso chronic suprapubic cath. Last suprapubic catheter changed February 28, due for next exchange. Recently completed antibiotic course for UTI, monitor off antibiotic, follow urine culture. Change suprapubic catheter. Other chronic medical conditions: As listed in HPI, continue with/resume home meds as and when able. DVT prophylaxis: Patient on Xarelto for history of DVT Full code plan of care discussed with patient in detail and at length all questions answered she is understanding, agreeable, comfortable with the plan of care Admission and Anticipated Discharge Date Admission Date: April 02, 2023 Subjective ff up for C diff colitis, etc seen resting in bed, comfortable RN Alyssia at bedside throughout whole encounter states she feels improved compared to yesterday 1 BM this morning abdominal pain improving nausea resolved no chills no other symptoms Review of Systems Review of Systems: all noted and negative except for above Physical Exam Physical Exam: General- oriented x 3, not in distress, speaks in sentences with no effort or accessory muscle use Eyes- anicteric Neck- no JVD Lungs- clear breath sounds bilaterally, no crackles or wheezing Heart- normal rate, regular rhythm; no murmurs Abdomen- hyperactive bowel sounds, nondistended, soft, nontender Extremities- no pretibial edema, no calf tenderness Neuro- alert, oriented x 3; quadriplegic Skin- warm & dry Results & Data Results & Data Vital Signs (Past 12 Hours) Vital Signs Temp Pulse Pulse Resp BP Pulse Ox O2 Del Method 04/03/23 11:15 37.0 C 86 16 105/67 97 Room Air 04/03/23 08:11 36.9 C 103 H 15 105/66 96 Room Air 04/03/23 02:30 38.1 C H 98 H 22 92/47 L 94 Room Air 04/03/23 02:07 38.5 C H all noted and reviewed including below
[2023-04-03] MEDS ORDERED: POTASSIUM CHLORIDE CRTAB 20 MEQ TABCR PO STA (15:36)
[2023-04-03] MEDS: POT PHOSPHATE MONOBASIC W/ SOD TAB PO SCH ×2 (16:28→21:34)
[2023-04-03 17:07] LABS: Anion Gap 6 (3-11); Blood Urea Nitrogen 2 mg/dl (6-23); Calcium 7.5 mg/dl (8.6-10.3); Carbon Dioxide 19 mmol/L (21-32); Chloride 109 mmol/L (98-107); Creatinine Clr Calc Pharmacy 412.3 ml/min; Est GFR (African American) > 150.0 ml/min; Est GFR (Non-African American) > 150.0 ml/min; Glucose 98 mg/dl (70-99(Fasting)); Sodium 134 mmol/L (136-145)
[2023-04-04] MEDS: GABAPENTIN 600 MG TAB PO SCH ×4 (04:46→22:32)
[2023-04-04] MEDS: GABAPENTIN 300 MG CAP PO SCH ×4 (04:46→22:33)
[2023-04-04] MEDS: SODIUM CHLORIDE 0.9% 1,000 ML IV SCH (04:46)
[2023-04-04] MEDS: BACLOFEN 10 MG TAB PO SCH ×4 (04:46→22:30)
[2023-04-04] MEDS: BACLOFEN 20 MG TAB PO SCH ×4 (04:47→22:32)
[2023-04-04 05:22] LABS: Basophils # (auto) 0.05 K/uL (0.00-0.20); Basophils % (auto) 0.4 %; Eosinophils # (auto) 0.36 K/uL (0.00-0.50); Hematocrit (blood only) 34.3 % (37.0-47.0); Hemoglobin 11.4 g/dl (12.0-16.0); Immature Granulocytes # (auto) 0.07 K/uL (0.01-0.20); Immature Granulocytes % (auto) 0.6 %; Lymphocytes # (auto) 2.44 K/uL (1.20-3.40); Lymphocytes % (auto) 20.2 %; Mean Corpuscular Hemoglobin 29.7 pg (25.0-34.0); Mean Corpuscular Hgb Conc 33.2 g/dL (32.0-36.0); Mean Corpuscular Volume 89.3 fL (80.0-100.0); Mean Platelet Volume 10.6 fL (9.4-12.4); Monocytes # (auto) 0.94 K/uL (0.11-0.59); Monocytes % (auto) 7.8 %; Neutrophils # (auto) 8.21 K/uL (1.40-6.50); Platelet Count 101 K/uL (130-400); RDW Coefficient of Variation 13.9 % (11.5-14.5); RDW Standard Deviation 45.1 fL (36.4-46.3); Red Blood Count 3.84 M/uL (4.20-5.40); White Blood Count 12.07 K/ul (4.8-10.8)
[2023-04-04 05:40] LABS: Anion Gap 7 (3-11); Blood Urea Nitrogen < 2 mg/dl (6-23); Calcium 7.6 mg/dl (8.6-10.3); Carbon Dioxide 21 mmol/L (21-32); Chloride 112 mmol/L (98-107); Creatinine Clr Calc Pharmacy 429.9 ml/min; Est GFR (African American) > 150.0 ml/min; Est GFR (Non-African American) > 150.0 ml/min; Glucose 84 mg/dl (70-99(Fasting)); Magnesium 1.6 mg/dl (1.7-2.4); Phosphorus 2.7 mg/dl (2.5-4.9); Potassium 3.2 mmol/L (3.5-5.1); Sodium 140 mmol/L (136-145)
[2023-04-04] MEDS: PROMETHAZINE HCL 12.5 MG in SODIUM CHLORIDE 0.9% 50 ML IV PRN ×3 (08:56→22:07)
[2023-04-04] MEDS: busPIRone 5 MG TAB PO SCH ×2 (08:57→22:32)
[2023-04-04] MEDS: MoRPHine SULFATE CR 15 MG TABCR PO SCH ×2 (08:57→22:30)
[2023-04-04] MEDS: DANTROLENE SODIUM 25 MG CAP PO SCH ×3 (08:58→22:31)
[2023-04-04] MEDS: DULoxetine HCL 60 MG CAP PO SCH ×2 (08:59→15:18)
[2023-04-04] MEDS: METHENAMINE HIPPURATE 1 GM TAB PO SCH ×2 (08:59→22:33)
[2023-04-04] MEDS: ARIPIprazole 1 MG/ML ORAL SOLN 150 ML BTL PO SCH (08:59)
[2023-04-04] MEDS: guaiFENesin 600 MG TABCR PO SCH ×2 (08:59→22:33)
[2023-04-04] MEDS: POT PHOSPHATE MONOBASIC W/ SOD TAB PO SCH ×4 (09:00→22:31)
[2023-04-04] MEDS: POTASSIUM CHLORIDE 10 MEQ TABCR PO SCH ×2 (09:00→23:01)
[2023-04-04] MEDS: FIDAXOMICIN 200 MG TAB PO SCH ×2 (09:05→22:30)
[2023-04-04] MEDS ORDERED: POTASSIUM CHLORIDE CRTAB 20 MEQ TABCR PO STA (09:11)
[2023-04-04] MEDS ORDERED: LEVALBUTEROL 1.25 MG/3 ML NEB NEB STA (09:17)
--- NOTE | 2023-04-04 10:07 | XRay Report ---
XR chest 1V portable CLINICAL HISTORY: shortnes of breath TECHNIQUE: Single frontal radiograph of the chest was obtained. Comparison: Comparison is made to chest radiographs 04/17/2020 FINDINGS: Lines and tubes are stable. The cardiomediastinal silhouette is normal. Lungs are clear apart from li near density likely reflecting atelectasis in the left lung base. No evidence of pleural effusion or pneumothorax. IMPRESSION: No acute abnormalities and in particular no radiographic evidence of pneumonia. ACT 112: Negative or not required by law. Electronically signed by: Ephraim Acevedo M.D. 04/04/2023 10:05 AM
--- NOTE | 2023-04-04 15:11 | Hospitalist Progress Note ---
Date of Service April 04, 2023 Assessment & Plan (1) C. difficile colitis: Plan C. difficile colitis Sepsis POA: Likely secondary to above. WBC and heart rate elevated ISO C. difficile colitis Electrolyte abnormalities Patient was recently treated with Augmentin x 10-day course which she completed last per patient. Patient presents with diarrhea for 2 days associated with abdominal pain, nausea, dry heaves, poor appetite. Admitting labs and imagings reviewed. Potassium and magnesium repleted. IV fluids until p.o. intake improves. Monitor and replete electrolytes. Patient is started on Dificid, continue with same. GI consult. 04/03 (+) fever overnight BM slowing down continue Fidaxomicin IV fluids clear liquids monitor closely 04/04 clinically improving continue Fidaxomicin advance diet to soft monitor closely Abnormal urine analysis Status suprapubic catheter Abnormal urine analysis likely secondary to colonization iso chronic suprapubic cath. Last suprapubic catheter changed February 28, due for next exchange. Recently completed antibiotic course for UTI, monitor off antibiotic, follow urine culture. Change suprapubic catheter. Urine culture: More than three types of organisms present, all high counts mixed probable skin inga - No further identifications or sensitivities to follow. Other chronic medical conditions: As listed in HPI, continue with/resume home meds as and when able. DVT prophylaxis: Patient on Xarelto for history of DVT Full code plan of care discussed with patient in detail and at length all questions answered she is understanding, agreeable, comfortable with the plan of care Admission and Anticipated Discharge Date Admission Date: April 02, 2023 Subjective ff up for C diff colitis, etc seen resting in bed, comfortable RN Alyssia at bedside throughout whole encounter states she feels improved compared to yesterday abdominal pain mostly resolved still has loose stools, but less frequent no chill, nausea ok to advance to soft diet has some mild dyspnea no other new symptoms Review of Systems Review of Systems: all noted and negative except for above Physical Exam Physical Exam: General- oriented x 3, not in distress, speaks in sentences with no effort or accessory muscle use Eyes- anicteric Neck- no JVD Lungs- clear breath sounds bilaterally, no rales/wheezes Heart- normal rate, regular rhythm; no murmurs Abdomen- normal bowel sounds, nondistended, soft, nontender Extremities- no pretibial edema, no calf tenderness Neuro- alert, oriented x 3; no new gross focal neurologic deficits Skin- warm & dry Results & Data Results & Data Vital Signs (Past 12 Hours) Vital Signs Temp Pulse Pulse Resp BP Pulse Ox O2 Del Method 04/04/23 11:38 36.6 C 67 16 106/74 98 Room Air 04/04/23 10:46 Room Air 04/04/23 10:08 67 16 98 Room Air 04/04/23 07:48 36.5 C 73 16 122/80 95 Room Air 04/04/23 07:00 71 all noted and reviewed including below
[2023-04-04] MEDS: oxyCODONE/ACETAMINOPHEN 10-325 TAB PO PRN (16:08)
[2023-04-04] MEDS: RIVAROXABAN 20 MG TAB PO SCH (16:10)
[2023-04-04] MEDS: MELATONIN 3 MG TAB PO SCH (22:30)
[2023-04-04] MEDS: HEPARIN 100 UNIT/ML 5ML FLUSH FLUSH PRN (22:30)
[2023-04-04] MEDS: MAGNESIUM OXIDE 400 MG TAB PO SCH (23:01)
[2023-04-05] MEDS: PROMETHAZINE HCL 12.5 MG in SODIUM CHLORIDE 0.9% 50 ML IV PRN ×3 (04:47→22:37)
[2023-04-05] MEDS: HEPARIN 100 UNIT/ML 5ML FLUSH FLUSH PRN ×2 (05:03→22:57)
[2023-04-05] MEDS: GABAPENTIN 600 MG TAB PO SCH ×4 (05:03→22:14)
[2023-04-05] MEDS: GABAPENTIN 300 MG CAP PO SCH ×4 (05:03→22:14)
[2023-04-05] MEDS: BACLOFEN 20 MG TAB PO SCH ×4 (05:03→22:15)
[2023-04-05] MEDS: BACLOFEN 10 MG TAB PO SCH ×4 (05:03→22:15)
[2023-04-05 07:41] LABS: Basophils # (auto) 0.04 K/uL (0.00-0.20); Basophils % (auto) 0.6 %; Eosinophils % (auto) 4.5 %; Hematocrit (blood only) 34.2 % (37.0-47.0); Hemoglobin 11.6 g/dl (12.0-16.0); Immature Granulocytes # (auto) 0.11 K/uL (0.01-0.20); Immature Granulocytes % (auto) 1.7 %; Lymphocytes # (auto) 1.84 K/uL (1.20-3.40); Lymphocytes % (auto) 27.8 %; Mean Corpuscular Hemoglobin 29.5 pg (25.0-34.0); Mean Corpuscular Hgb Conc 33.9 g/dL (32.0-36.0); Mean Platelet Volume 10.1 fL (9.4-12.4); Monocytes # (auto) 0.67 K/uL (0.11-0.59); Monocytes % (auto) 10.1 %; Neutrophils # (auto) 3.66 K/uL (1.40-6.50); Neutrophils % (auto) 55.3 %; Platelet Count 120 K/uL (130-400); RDW Coefficient of Variation 13.5 % (11.5-14.5); RDW Standard Deviation 43.3 fL (36.4-46.3); Red Blood Count 3.93 M/uL (4.20-5.40); White Blood Count 6.62 K/ul (4.8-10.8)
[2023-04-05 08:11] LABS: Anion Gap 6 (3-11); Blood Urea Nitrogen < 2 mg/dl (6-23); Calcium 7.7 mg/dl (8.6-10.3); Carbon Dioxide 26 mmol/L (21-32); Chloride 108 mmol/L (98-107); Creatinine Clr Calc Pharmacy 429.9 ml/min; Est GFR (African American) > 150.0 ml/min; Est GFR (Non-African American) > 150.0 ml/min; Glucose 89 mg/dl (70-99(Fasting)); Magnesium 1.5 mg/dl (1.7-2.4); Sodium 140 mmol/L (136-145)
[2023-04-05] MEDS: DANTROLENE SODIUM 25 MG CAP PO SCH ×3 (08:18→22:12)
[2023-04-05] MEDS: METHENAMINE HIPPURATE 1 GM TAB PO SCH ×2 (08:19→22:14)
[2023-04-05] MEDS: POT PHOSPHATE MONOBASIC W/ SOD TAB PO SCH ×2 (08:19→14:32)
[2023-04-05] MEDS: ARIPIprazole 1 MG/ML ORAL SOLN 150 ML BTL PO SCH (08:20)
[2023-04-05] MEDS: MAGNESIUM OXIDE 400 MG TAB PO SCH ×2 (08:20→22:16)
[2023-04-05] MEDS: busPIRone 5 MG TAB PO SCH ×2 (08:21→22:13)
[2023-04-05] MEDS: DULoxetine HCL 60 MG CAP PO SCH ×2 (08:21→16:38)
[2023-04-05] MEDS: guaiFENesin 600 MG TABCR PO SCH ×2 (08:21→22:13)
[2023-04-05] MEDS ORDERED: MAGNESIUM SULFATE / D5W 1 GM/100 ML BAG IV ONE (08:26)
[2023-04-05] MEDS ORDERED: POTASSIUM CHLORIDE CRTAB 20 MEQ TABCR PO STA (08:26)
[2023-04-05] MEDS: POTASSIUM CHLORIDE 10 MEQ TABCR PO SCH (08:54)
[2023-04-05] MEDS: MoRPHine SULFATE CR 15 MG TABCR PO SCH ×2 (08:54→22:10)
[2023-04-05] MEDS: FIDAXOMICIN 200 MG TAB PO SCH ×2 (08:54→22:10)
[2023-04-05] MEDS: oxyCODONE/ACETAMINOPHEN 10-325 TAB PO PRN (11:14)
--- NOTE | 2023-04-05 14:25 | Hospitalist Progress Note ---
Date of Service April 05, 2023 Assessment & Plan (1) C. difficile colitis: Plan C. difficile colitis Sepsis POA: Likely secondary to above. WBC and heart rate elevated ISO C. difficile colitis Electrolyte abnormalities Patient was recently treated with Augmentin x 10-day course which she completed last per patient. Patient presents with diarrhea for 2 days associated with abdominal pain, nausea, dry heaves, poor appetite. Admitting labs and imagings reviewed. Potassium and magnesium repleted. IV fluids until p.o. intake improves. Monitor and replete electrolytes. Patient is started on Dificid, continue with same. GI consult. 04/03 (+) fever overnight BM slowing down continue Fidaxomicin IV fluids clear liquids monitor closely 04/04 clinically improving continue Fidaxomicin advance diet to soft monitor closely 04/05 having multiple BMs, nausea messaged GI to re-evaluate patient today restart IV fluids NSS at 66cc/hr replace K and Mg Abnormal urine analysis Status suprapubic catheter Abnormal urine analysis likely secondary to colonization iso chronic suprapubic cath. Last suprapubic catheter changed February 28, due for next exchange. Recently completed antibiotic course for UTI, monitor off antibiotic, follow urine culture. Change suprapubic catheter. Urine culture: More than three types of organisms present, all high counts mixed probable skin inga - No further identifications or sensitivities to follow patient denies symptoms of UTI Cervical Cspine Injury with Quadriplegia History of DVT on Xarelto Recurrent/chronic pressure ulcer status post debridement and hamstring flap closure May 2021 Anxiety/Depression Spastic neurogenic bladder status suprapubic catheter History of recurrent UTI Persistent Insomnia Other chronic medical conditions: As listed in HPI, continue with/resume home meds as and when able. DVT prophylaxis Patient on Xarelto for history of DVT Full code plan of care discussed with patient in detail all questions answered she is understanding, agreeable, comfortable with the plan of care Admission and Anticipated Discharge Date Admission Date: April 02, 2023 Subjective ff up for C diff colitis, etc seen resting in bed, sitting up, using her laptop seen with RN Dominiece at bedside throughout whole encounter states she is still having at least 10 loose BMs since this morning also having nausea no vomiting no fever/chills no other new symptoms Review of Systems Review of Systems: all noted and negative except for above Physical Exam Physical Exam: General- oriented x 3, not in distress, speaks in sentences with no effort or accessory muscle use Eyes- anicteric Neck- no JVD Lungs- clear breath sounds bilaterally Heart- normal rate, regular rhythm; no murmurs Abdomen- normal bowel sounds, nondistended, soft, no tenderness Extremities- no pretibial edema, no calf tenderness Neuro- alert, oriented x 3; no gross focal neurologic deficits Skin- warm & dry Results & Data Results & Data Vital Signs (Past 12 Hours) Vital Signs Temp Pulse Resp BP Pulse Ox O2 Del Method 04/05/23 07:26 36.6 C 62 16 122/78 97 Room Air all noted and reviewed including below
[2023-04-05] MEDS ORDERED: SODIUM CHLORIDE 0.9% 1,000 ML IV SCH (15:00)
[2023-04-05] MEDS: RIVAROXABAN 20 MG TAB PO SCH (16:39)
[2023-04-05] MEDS: MELATONIN 3 MG TAB PO SCH (22:11)
[2023-04-05] MEDS: POTASSIUM CHLORIDE CRTAB 20 MEQ TABCR PO SCH (22:11)
[2023-04-06] MEDS: GABAPENTIN 600 MG TAB PO SCH ×4 (03:21→22:26)
[2023-04-06] MEDS: GABAPENTIN 300 MG CAP PO SCH ×4 (03:21→22:26)
[2023-04-06] MEDS: BACLOFEN 10 MG TAB PO SCH ×4 (03:22→22:26)
[2023-04-06] MEDS: BACLOFEN 20 MG TAB PO SCH ×4 (03:22→22:26)
[2023-04-06] MEDS: HEPARIN 100 UNIT/ML 5ML FLUSH FLUSH PRN (06:16)
[2023-04-06 06:40] LABS: Basophils # (auto) 0.03 K/uL (0.00-0.20); Basophils % (auto) 0.6 %; Eosinophils # (auto) 0.24 K/uL (0.00-0.50); Eosinophils % (auto) 4.7 %; Hematocrit (blood only) 34.5 % (37.0-47.0); Immature Granulocytes # (auto) 0.17 K/uL (0.01-0.20); Immature Granulocytes % (auto) 3.3 %; Lymphocytes # (auto) 2.27 K/uL (1.20-3.40); Lymphocytes % (auto) 44.1 %; Mean Corpuscular Hemoglobin 29.6 pg (25.0-34.0); Mean Corpuscular Hgb Conc 34.8 g/dL (32.0-36.0); Mean Corpuscular Volume 85.2 fL (80.0-100.0); Mean Platelet Volume 10.2 fL (9.4-12.4); Monocytes # (auto) 0.69 K/uL (0.11-0.59); Monocytes % (auto) 13.4 %; Neutrophils # (auto) 1.75 K/uL (1.40-6.50); Neutrophils % (auto) 33.9 %; Platelet Count 140 K/uL (130-400); RDW Coefficient of Variation 13.3 % (11.5-14.5); RDW Standard Deviation 41.9 fL (36.4-46.3); Red Blood Count 4.05 M/uL (4.20-5.40); White Blood Count 5.15 K/ul (4.8-10.8)
[2023-04-06 07:03] LABS: Anion Gap 5 (3-11); Blood Urea Nitrogen < 2 mg/dl (6-23); Calcium 8.1 mg/dl (8.6-10.3); Carbon Dioxide 28 mmol/L (21-32); Chloride 108 mmol/L (98-107); Creatinine Clr Calc Pharmacy 429.9 ml/min; Est GFR (African American) > 150.0 ml/min; Est GFR (Non-African American) > 150.0 ml/min; Glucose 90 mg/dl (70-99(Fasting)); Magnesium 1.9 mg/dl (1.7-2.4); Phosphorus 3.9 mg/dl (2.5-4.9); Potassium 3.7 mmol/L (3.5-5.1); Sodium 141 mmol/L (136-145)
--- NOTE | 2023-04-06 08:06 | Gastroenterology Progress Note ---
Date of Service April 06, 2023 Assessment & Plan (1) C. difficile colitis: Plan: 32 year old female with history of cervical spine injury with quadriplegia, DVT on Xarelto, recurrent/chronic pressure ulcer s/p 05/2021, anxiety, depression, spastic neurogenic bladder s/p suprapubic catheter admitted w/ abd pain, diarrhea, c.diff colitis. She was started on Dificid and initially had improved, and yesterday and more frequent loose BMs. Today however she feels better; only had 1 loose stool overnight. We discussed adding IV Flagyl to her regimen; she would like to hold off on this and see how she does today. I feel this is reasonable her overall stability, normal WBC, soft abd, tolerating her diet. Low residue diet. Monitor and document GI output. Of note, she has multiple allergies listed in her chart, She had been working with employee communications specialist to clarify this; unclear what (if any) allergy she has to Vancomycin. As OP, would encourage f/u with allergy to further clarify what she is allergic to so that we can know what options we have for treating any infections in the future. Thank you for allowing us to participate in the care of this patient. Please call with any acute changes, questions or concerns. Please see addendum below with additional recommendation from my supervising physician. Admission and Anticipated Discharge Date Admission Date: April 02, 2023 Supervising Physician Co-Signing Physician Notes I performed a history and physical examination of the patient today, including specifically on physical exam - soft abdomen. I have discussed the patient's management with the advanced practitioner. Please refer to the nurse practitioner's note for the documented findings and plan of care. Subjective We were asked to re-see this pt w/ C diff colitis. Over the weekend had improved frequency of BMs however yesterday reported increase amt of liquid stool. She remains on Dificid BID. No fever, chills, abd pain, nausea, vomiting. Tolerating her diet. Yesterday she said she had 10+ liquid BMs. Overnight she only had 1 liquid BM and this AM so far she had none. She feels improved overall; feels like she is making progress. Labs stable; no WBC. Review of Systems Review of Systems: All systems reviewed & are unremarkable except as noted in HPI & below Physical Exam 2 Constitutional: WD/WN, vitals as above Respiratory: normal respiratory effort Cardiovascular: Rate/Rhythm: regular rate and regular rhythm Gastrointestinal (Abdomen): Minimal diffuse tenderness, moreso in the LLQ, no rebound, guarding, distention, + BS, abd soft Skin: no rashes, warm and dry Results & Data Vital Signs (Past 12 Hours) Vital Signs Temp Pulse Resp BP Pulse Ox O2 Del Method 04/05/23 22:27 36.7 C 72 16 125/84 97 Room Air Laboratory Results 04/06/23 04/05/23 Range/Units 06:15 07:19 WBC 5.15 (4.8-10.8) K/ul RBC 4.05 L (4.20-5.40) M/uL Hgb 12.0 (12.0-16.0) g/dl Hct 34.5 L (37.0-47.0) % MCV 85.2 (80.0-100.0) fL MCH 29.6 (25.0-34.0) pg MCHC 34.8 (32.0-36.0) g/dL RDW Std Deviation 41.9 (36.4-46.3) fL RDW Coeff of Andres 13.3 (11.5-14.5) % Plt Count 140 (130-400) K/uL MPV 10.2 (9.4-12.4) fL Immature Gran % (Auto) 3.3 % Neut % (Auto) 33.9 % Lymph % (Auto) 44.1 % [place] % (Auto) 13.4 % Eos % (Auto) 4.7 % Baso % (Auto) 0.6 % Neut # (Auto) 1.75 (1.40-6.50) K/uL Lymph # (Auto) 2.27 (1.20-3.40) K/uL [place] # (Auto) 0.69 H (0.11-0.59) K/uL Eos # (Auto) 0.24 (0.00-0.50) K/uL Baso # (Auto) 0.03 (0.00-0.20) K/uL Immature Gran # (Auto) 0.17 (0.01-0.20) K/uL Sodium 141 140 (136-145) mmol/L Potassium 3.7 D 3.0 L (3.5-5.1) mmol/L Chloride 108 H 108 H (98-107) mmol/L Carbon Dioxide 28 26 (21-32) mmol/L Anion Gap 5 6 (3-11) BUN < 2 L < 2 L (6-23) mg/dl Creatinine < 0.20 L < 0.20 L (0.6-1.2) mg/dl Est Cr Clr Drug Dosing 429.9 429.9 ml/min Est GFR ( Amer) > 150.0 > 150.0 ml/min Est GFR (Non-Af Amer) > 150.0 > 150.0 ml/min BUN/Creatinine Ratio TNP TNP Glucose 90 89 (70-99(Fasting)) mg/dl Calcium 8.1 L 7.7 L (8.6-10.3) mg/dl Phosphorus 3.9 4.0 D (2.5-4.9) mg/dl Magnesium 1.9 1.5 L (1.7-2.4) mg/dl
[2023-04-06] MEDS: POTASSIUM CHLORIDE CRTAB 20 MEQ TABCR PO SCH (08:55)
[2023-04-06] MEDS: DULoxetine HCL 60 MG CAP PO SCH ×2 (08:56→16:07)
[2023-04-06] MEDS: ARIPIprazole 1 MG/ML ORAL SOLN 150 ML BTL PO SCH (08:56)
[2023-04-06] MEDS: METHENAMINE HIPPURATE 1 GM TAB PO SCH ×2 (08:56→20:13)
[2023-04-06] MEDS: busPIRone 5 MG TAB PO SCH ×2 (08:56→20:14)
[2023-04-06] MEDS: MAGNESIUM OXIDE 400 MG TAB PO SCH (08:56)
[2023-04-06] MEDS: guaiFENesin 600 MG TABCR PO SCH ×2 (08:57→20:14)
[2023-04-06] MEDS: DANTROLENE SODIUM 25 MG CAP PO SCH ×3 (08:57→20:13)
[2023-04-06] MEDS ORDERED: metroNIDAZOLE 500 MG/100 ML BAG IV SCH (09:00)
[2023-04-06] MEDS: FIDAXOMICIN 200 MG TAB PO SCH ×2 (09:04→20:10)
[2023-04-06] MEDS: MoRPHine SULFATE CR 15 MG TABCR PO SCH ×2 (09:04→20:11)
[2023-04-06] MEDS ORDERED: SOD PHOSPHATE/SOD BIPHOSPHATE ENEMA 132 ML BTL PR PRN (15:03)
[2023-04-06] MEDS: RIVAROXABAN 20 MG TAB PO SCH (16:07)
--- NOTE | 2023-04-06 16:14 | Hospitalist Progress Note ---
Date of Service April 06, 2023 Assessment & Plan (1) C. difficile colitis: Plan C. difficile colitis Sepsis POA: Likely secondary to above. WBC and heart rate elevated ISO C. difficile colitis Electrolyte abnormalities Patient reports that this would be her second C. difficile infection, first episode was a few years ago Patient was recently treated with Augmentin x 10-day course which she completed last per patient. Patient presents with diarrhea for 2 days associated with abdominal pain, nausea, dry heaves, poor appetite. Placed on fidaxomicin 200 mg twice daily, IV fluids, electrolytes replaced Fever resolved Leukocytosis resolved Was having increased bowel movements yesterday, but seems to be slowing down today GI evaluated the patient, if with persistence of loose bowel movements, recommend IV Flagyl Continue to monitor closely Abnormal urine analysis Status suprapubic catheter Abnormal urine analysis likely secondary to colonization iso chronic suprapubic cath. Last suprapubic catheter changed February 28, due for next exchange. Recently completed antibiotic course for UTI, monitor off antibiotic, follow urine culture. Change suprapubic catheter. Urine culture: More than three types of organisms present, all high counts mixed probable skin inga - No further identifications or sensitivities to follow patient denies symptoms of UTI Cervical Cspine Injury with Quadriplegia History of DVT on Xarelto Recurrent/chronic pressure ulcer status post debridement and hamstring flap closure May 2021 Anxiety/Depression Spastic neurogenic bladder status suprapubic catheter History of recurrent UTI Persistent Insomnia Other chronic medical conditions: As listed in HPI, continue with/resume home meds as and when able. DVT prophylaxis Patient on Xarelto for history of DVT Full code plan of care discussed with patient in detail all questions answered she is understanding, agreeable, comfortable with the plan of care Admission and Anticipated Discharge Date Admission Date: April 02, 2023 Subjective Follow-up for C. difficile colitis, etc. Seen with HOLLEY Mora at the bedside throughout whole encounter Sitting up in bed, comfortable, not in distress States she continues to feel improved overall Last diarrhea was this morning, no abdominal pain, tolerating regular diet No nausea today No other new symptoms Review of Systems Review of Systems: all noted and negative except for above Physical Exam Physical Exam: General- oriented x 3, not in distress, speaks in sentences with no effort or accessory muscle use Eyes- anicteric Neck- no JVD Lungs- clear BS BL Heart- normal rate, regular rhythm; no murmurs Abdomen- normal bowel sounds, nondistended, soft, no tenderness Extremities- no pretibial edema, no calf tenderness Neuro- alert, oriented x 3; no new gross focal neurologic deficits Skin- warm & dry Results & Data Results & Data Vital Signs (Past 12 Hours) Vital Signs Temp Pulse Resp BP Pulse Ox O2 Del Method 04/06/23 15:47 36.8 C 89 16 115/88 96 Room Air 04/06/23 08:46 36.6 C 89 16 109/76 97 Room Air all noted and reviewed including below
[2023-04-06] MEDS: oxyCODONE/ACETAMINOPHEN 10-325 TAB PO PRN (19:56)
[2023-04-06] MEDS: traZODone HCL 50 MG TAB PO PRN (20:10)
[2023-04-06] MEDS: MELATONIN 3 MG TAB PO SCH (20:11)
[2023-04-06] MEDS: POTASSIUM CHLORIDE 10 MEQ TABCR PO SCH (20:11)
[2023-04-07] MEDS: BACLOFEN 10 MG TAB PO SCH ×4 (03:57→21:44)
[2023-04-07] MEDS: GABAPENTIN 300 MG CAP PO SCH ×4 (03:57→21:44)
[2023-04-07] MEDS: BACLOFEN 20 MG TAB PO SCH ×4 (03:57→21:43)
[2023-04-07] MEDS: GABAPENTIN 600 MG TAB PO SCH ×4 (03:57→21:45)
[2023-04-07] MEDS: HEPARIN 100 UNIT/ML 5ML FLUSH FLUSH PRN (07:20)
[2023-04-07 07:30] LABS: Basophils # (auto) 0.03 K/uL (0.00-0.20); Basophils % (auto) 0.6 %; Eosinophils # (auto) 0.23 K/uL (0.00-0.50); Eosinophils % (auto) 4.4 %; Hematocrit (blood only) 38.9 % (37.0-47.0); Hemoglobin 13.2 g/dl (12.0-16.0); Immature Granulocytes # (auto) 0.15 K/uL (0.01-0.20); Immature Granulocytes % (auto) 2.8 %; Lymphocytes # (auto) 2.55 K/uL (1.20-3.40); Lymphocytes % (auto) 48.4 %; Mean Corpuscular Hgb Conc 33.9 g/dL (32.0-36.0); Mean Corpuscular Volume 88.4 fL (80.0-100.0); Mean Platelet Volume 10.1 fL (9.4-12.4); Monocytes # (auto) 0.87 K/uL (0.11-0.59); Monocytes % (auto) 16.5 %; Neutrophils # (auto) 1.44 K/uL (1.40-6.50); Neutrophils % (auto) 27.3 %; Platelet Count 149 K/uL (130-400); RDW Coefficient of Variation 13.8 % (11.5-14.5); RDW Standard Deviation 45.2 fL (36.4-46.3); White Blood Count 5.27 K/ul (4.8-10.8)
[2023-04-07 08:15] LABS: Anion Gap 5 (3-11); Calcium 8.7 mg/dl (8.6-10.3); Carbon Dioxide 32 mmol/L (21-32); Chloride 106 mmol/L (98-107); Magnesium 1.9 mg/dl (1.7-2.4); Sodium 143 mmol/L (136-145)
[2023-04-07] MEDS: MoRPHine SULFATE CR 15 MG TABCR PO SCH ×2 (08:16→21:39)
[2023-04-07] MEDS: FIDAXOMICIN 200 MG TAB PO SCH ×2 (08:16→21:39)
[2023-04-07] MEDS: POTASSIUM CHLORIDE 10 MEQ TABCR PO SCH ×2 (08:16→21:40)
[2023-04-07] MEDS: METHENAMINE HIPPURATE 1 GM TAB PO SCH ×2 (08:17→21:43)
[2023-04-07] MEDS: DANTROLENE SODIUM 25 MG CAP PO SCH ×3 (08:17→21:41)
[2023-04-07] MEDS: DULoxetine HCL 60 MG CAP PO SCH ×2 (08:17→16:15)
[2023-04-07] MEDS: ARIPIprazole 1 MG/ML ORAL SOLN 150 ML BTL PO SCH (08:17)
[2023-04-07] MEDS: busPIRone 5 MG TAB PO SCH ×2 (08:18→21:40)
[2023-04-07] MEDS: guaiFENesin 600 MG TABCR PO SCH ×2 (08:18→21:42)
[2023-04-07 08:23] LABS: Blood Urea Nitrogen 2 mg/dl (6-23); Creatinine Clr Calc Pharmacy 429.9 ml/min; Est GFR (African American) > 150.0 ml/min; Est GFR (Non-African American) > 150.0 ml/min; Glucose 99 mg/dl (70-99(Fasting)); Phosphorus 4.7 mg/dl (2.5-4.9)
--- NOTE | 2023-04-07 14:36 | Hospitalist Progress Note ---
Date of Service April 07, 2023 Assessment & Plan (1) C. difficile colitis: Plan C. difficile colitis Sepsis POA: Likely secondary to above. WBC and heart rate elevated ISO C. difficile colitis Electrolyte abnormalities Patient reports that this would be her second C. difficile infection, first episode was a few years ago Patient was recently treated with Augmentin x 10-day course which she completed last per patient. Patient presents with diarrhea for 2 days associated with abdominal pain, nausea, dry heaves, poor appetite. Placed on fidaxomicin 200 mg twice daily, IV fluids, electrolytes replaced Fever resolved Leukocytosis resolved Was having increased bowel movements yesterday, but seems to be slowing down today, per nursing only 1BM yesterday GI evaluated the patient, if with persistence of loose bowel movements, recommend IV Flagyl - will hold off for now as not having more freq loose stool Continue to monitor closely Abnormal urine analysis Status suprapubic catheter Abnormal urine analysis likely secondary to colonization iso chronic suprapubic cath. Last suprapubic catheter changed February 28, due for next exchange. Recently completed antibiotic course for UTI, monitor off antibiotic, follow urine culture. Change suprapubic catheter. Urine culture: More than three types of organisms present, all high counts mixed probable skin inga - No further identifications or sensitivities to follow patient denies symptoms of UTI Cervical Cspine Injury with Quadriplegia History of DVT on Xarelto Recurrent/chronic pressure ulcer status post debridement and hamstring flap closure May 2021 Anxiety/Depression Spastic neurogenic bladder status suprapubic catheter History of recurrent UTI Persistent Insomnia Other chronic medical conditions: As listed in HPI, continue with/resume home meds as and when able. DVT prophylaxis Patient on Xarelto for history of DVT Full code Pt was seen and examined in collaboration with Dr. Cruz, please see addendum Admission and Anticipated Discharge Date Admission Date: April 02, 2023 Supervising Physician Co-Signing Physician Notes Patient seen and examined independently. Discussed with above provider. Episodes of diarrhea decreasing in frequency. Continue to Fidaxomicin. Possible DC in a.m. Subjective Follow-up C. difficile colitis. Seen and examined on 324. Last bowel movement was yesterday. Still loose. She only had 1 bowel movement yesterday and none so far today. Overall has good appetite and denies any abdominal pain, nausea or vomiting. She denies any fever, chills or sweats. She states last evening she had had her mother driving 45 minutes to disimpact her as she was unable to leave flatus or stool. Review of Systems Review of Systems: All systems reviewed & are unremarkable except as noted in HPI & below Physical Exam Physical Exam: Gen: WD/WN, NAD, A&O x3 HEENT: Normocephalic, atraumatic, conjunctivae moist, sclerae anicteric, mucous membranes moist. Lung: Clear to Auscultation bilaterally, no wheezes/rales/rhonchi Heart: Regular rate, regular rhythm, no murmurs, rubs, or gallops, suprapubic catheter Abdomen: Soft, NT, ND +BS x 4 Extremities: No edema, quadriplegic Skin: Warm, no rash, negative turgor. Results & Data Results & Data Vital Signs (Past 12 Hours) Vital Signs Temp Pulse Resp BP Pulse Ox O2 Del Method 04/07/23 08:12 103/71 04/07/23 07:22 36.8 C 90 17 92/60 L 98 Room Air Laboratory Results Short CBC 04/07/23 Range/Units 07:13 WBC 5.27 (4.8-10.8) K/ul Hgb 13.2 (12.0-16.0) g/dl Hct 38.9 (37.0-47.0) % Plt Count 149 (130-400) K/uL BMP 04/07/23 07:13 Sodium 143 Potassium 4.0 Chloride 106 Carbon Dioxide 32 BUN 2 L Creatinine < 0.20 L Glucose 99 Calcium 8.7 Medications Administered Current Inpatient Medications Acetaminophen (Acetaminophen 325 Mg Tab) 650 mg PO Q4H PRN PRN Reason: Pain or Fever Stop: 05/02/23 10:47 Last Admin: 04/03/23 00:44 Dose: 650 mg Albuterol (Albuterol Hfa 8 Gm Inhaler) 2 puffs INH Q6H PRN PRN Reason: shortness of breath or wheezing Stop: 05/02/23 14:04 Aripiprazole (Aripiprazole 1 Mg/Ml Oral Soln 150 Ml Btl) 1 mg PO DAILY MIGUEL Stop: 05/03/23 08:59 Last Admin: 04/07/23 08:17 Dose: 1 mg Baclofen (Baclofen 20 Mg Tab) 20 mg PO QID@0400,1000,1600,2200 [facility] Stop: 05/02/23 15:59 Last Admin: 04/07/23 10:17 Dose: 20 mg Baclofen (Baclofen 10 Mg Tab) 10 mg PO QID@0400,1000,1600,2200 [facility] Stop: 05/02/23 15:59 Last Admin: 04/07/23 10:17 Dose: 10 mg Buspirone HCl (Buspirone 5 Mg Tab) 5 mg PO BID MIGUEL Stop: 05/02/23 20:59 Last Admin: 04/07/23 08:18 Dose: 5 mg Dantrolene Sodium (Dantrolene Sodium 25 Mg Cap) 100 mg PO TID [facility] Stop: 05/02/23 14:29 Last Admin: 04/07/23 14:06 Dose: 100 mg Duloxetine HCl (Duloxetine Hcl 60 Mg Cap) 60 mg PO BID@0800,1500 [facility] Stop: 05/02/23 14:59 Last Admin: 04/07/23 08:17 Dose: 60 mg Fidaxomicin (Fidaxomicin 200 Mg Tab) 200 mg PO BID [facility] Stop: 04/12/23 09:59 Last Admin: 04/07/23 08:16 Dose: 200 mg Fluticasone Propionate (Fluticasone Propionate Na Spr 16 Gm Btl) 2 sprays NA QAM PRN PRN Reason: allergies Stop: 05/02/23 14:04 Gabapentin (Gabapentin 600 Mg Tab) 600 mg PO QID@0400,1000,1600,2200 [facility] Stop: 05/02/23 15:59 Last Admin: 04/07/23 10:17 Dose: 600 mg Gabapentin (Gabapentin 300 Mg Cap) 300 mg PO QID@0400,1000,1600,2200 [facility] Stop: 05/02/23 15:59 Last Admin: 04/07/23 10:17 Dose: 300 mg Guaifenesin (Guaifenesin 600 Mg Tabcr) 600 mg PO Q12 [facility] Stop: 05/02/23 14:44 Last Admin: 04/07/23 08:18 Dose: 600 mg Heparin Sodium (Porcine) (Heparin 100 Unit/Ml 5ml Flush) 5 ml FLUSH PRN PRN PRN Reason: Flush Stop: 05/04/23 09:21 Last Admin: 04/07/23 07:20 Dose: 5 ml Hydroxyzine HCl (Hydroxyzine Hcl 25 Mg Tab) 25 mg PO HS PRN PRN Reason: Anxiety/allergies Stop: 05/02/23 14:04 Promethazine HCl 12.5 mg/ (Sodium Chloride) 50.5 mls @ 202 mls/hr IV Q6H PRN PRN Reason: Nausea And Vomiting Stop: 05/02/23 20:08 Last Infusion: 04/05/23 22:52 Dose: Infused Lorazepam (Lorazepam 0.5 Mg Tab) 0.5 mg PO Q8H PRN PRN Reason: Anxiety Stop: 05/02/23 14:04 Melatonin (Melatonin 3 Mg Tab) 3 mg PO HS MIGUEL Stop: 05/02/23 20:59 Last Admin: 04/06/23 20:11 Dose: 3 mg Methenamine Hippurate (Methenamine Hippurate 1 Gm Tab) 1 gm PO BID MIGUEL Stop: 05/02/23 20:59 Last Admin: 04/07/23 08:17 Dose: 1 gm Miscellaneous (Renacidin Bladder Mixture: Order Awaiting Action) 1 each N/A QS [facility] Stop: 05/02/23 15:59 Last Admin: 04/07/23 08:16 Dose: Not Given Morphine Sulfate (Morphine Sulfate Cr 15 Mg Tabcr) 15 mg PO Q12 [facility] Stop: 04/16/23 14:29 Last Admin: 04/07/23 08:16 Dose: 15 mg Ondansetron HCl (Ondansetron Inj 2 Mg/Ml 2 Ml Vial) 4 mg IV Q6H PRN PRN Reason: Nausea Stop: 05/02/23 10:47 Last Admin: 04/03/23 21:30 Dose: 4 mg Oxycodone/Acetaminophen (Oxycodone/Acetaminophen 10-325 Tab) 1 tab PO Q6H PRN PRN Reason: Pain Stop: 04/16/23 14:04 Last Admin: 04/06/23 19:56 Dose: 1 tab Potassium Chloride (Potassium Chloride 10 Meq Tabcr) 10 meq PO BID MIGUEL Stop: 05/06/23 20:59 Last Admin: 04/07/23 08:16 Dose: 10 meq Rivaroxaban (Rivaroxaban 20 Mg Tab) 20 mg PO QDD MIGUEL Stop: 05/02/23 16:29 Last Admin: 04/06/23 16:07 Dose: 20 mg Trazodone HCl (Trazodone Hcl 50 Mg Tab) 50 mg PO HS PRN PRN Reason: Sleep Stop: 05/02/23 14:04 Last Admin: 04/06/23 20:10 Dose: 50 mg
[2023-04-07] MEDS: RIVAROXABAN 20 MG TAB PO SCH (16:15)
[2023-04-07] MEDS: traZODone HCL 50 MG TAB PO PRN (21:39)
[2023-04-07] MEDS: MELATONIN 3 MG TAB PO SCH (21:39)
[2023-04-07] MEDS: oxyCODONE/ACETAMINOPHEN 10-325 TAB PO PRN (21:42)
[2023-04-08] MEDS: GABAPENTIN 300 MG CAP PO SCH ×2 (03:37→08:54)
[2023-04-08] MEDS: BACLOFEN 10 MG TAB PO SCH ×2 (03:38→08:54)
[2023-04-08] MEDS: GABAPENTIN 600 MG TAB PO SCH ×2 (03:38→08:54)
[2023-04-08] MEDS: BACLOFEN 20 MG TAB PO SCH ×2 (03:39→08:54)
[2023-04-08 07:03] LABS: Basophils # (auto) 0.04 K/uL (0.00-0.20); Basophils % (auto) 0.6 %; Eosinophils # (auto) 0.21 K/uL (0.00-0.50); Eosinophils % (auto) 3.4 %; Hematocrit (blood only) 37.2 % (37.0-47.0); Hemoglobin 12.4 g/dl (12.0-16.0); Immature Granulocytes # (auto) 0.26 K/uL (0.01-0.20); Immature Granulocytes % (auto) 4.2 %; Lymphocytes # (auto) 2.43 K/uL (1.20-3.40); Lymphocytes % (auto) 39.4 %; Mean Corpuscular Hemoglobin 29.1 pg (25.0-34.0); Mean Corpuscular Hgb Conc 33.3 g/dL (32.0-36.0); Mean Corpuscular Volume 87.3 fL (80.0-100.0); Mean Platelet Volume 9.8 fL (9.4-12.4); Monocytes # (auto) 0.93 K/uL (0.11-0.59); Monocytes % (auto) 15.1 %; Neutrophils % (auto) 37.3 %; Platelet Count 163 K/uL (130-400); RDW Standard Deviation 44.9 fL (36.4-46.3); Red Blood Count 4.26 M/uL (4.20-5.40); White Blood Count 6.17 K/ul (4.8-10.8)
[2023-04-08 07:47] LABS: Anion Gap 4 (3-11); Blood Urea Nitrogen 3 mg/dl (6-23); Carbon Dioxide 33 mmol/L (21-32); Chloride 105 mmol/L (98-107); Creatinine Clr Calc Pharmacy 429.9 ml/min; Est GFR (African American) > 150.0 ml/min; Est GFR (Non-African American) > 150.0 ml/min; Glucose 102 mg/dl (70-99(Fasting)); Magnesium 1.9 mg/dl (1.7-2.4); Phosphorus 5.3 mg/dl (2.5-4.9); Potassium 3.8 mmol/L (3.5-5.1); Sodium 142 mmol/L (136-145)
[2023-04-08] MEDS: POTASSIUM CHLORIDE 10 MEQ TABCR PO SCH (08:46)
[2023-04-08] MEDS: METHENAMINE HIPPURATE 1 GM TAB PO SCH (08:46)
[2023-04-08] MEDS: MoRPHine SULFATE CR 15 MG TABCR PO SCH (08:46)
[2023-04-08] MEDS: guaiFENesin 600 MG TABCR PO SCH (08:46)
[2023-04-08] MEDS: DULoxetine HCL 60 MG CAP PO SCH (08:46)
[2023-04-08] MEDS: DANTROLENE SODIUM 25 MG CAP PO SCH ×2 (08:46→13:12)
[2023-04-08] MEDS: busPIRone 5 MG TAB PO SCH (08:48)
[2023-04-08] MEDS: FIDAXOMICIN 200 MG TAB PO SCH (08:48)
[2023-04-08] MEDS: ARIPIprazole 1 MG/ML ORAL SOLN 150 ML BTL PO SCH (08:48)
--- NOTE | 2023-04-08 12:22 | Discharge Summary ---
Discharge Summary Date of Service April 08, 2023 Notes For Next Care Provider C diff colitis Medication Changes From Visit Continue Dificid twice a day to complete 10d course Admission HPI Per Admitting Provider 32-year-old lady with PMH of cervical spine injury with quadriplegia, DVT on Xarelto, recurrent/chronic pressure ulcer status post debridement and hamstring flap closure May 2021, anxiety, depression, spastic neurogenic bladder status suprapubic catheter, history of recurrent UTI, persistent insomnia presented to the ED 04/02 with complaint of loose stools for 2 days, multiple stools in a day, associated with fever/abdominal pain/headache/poor appetite/nausea/dry heaves. Denies vomiting. Denies dizziness or sore throat or cough or chest pain or palpitation. Reports complete healing of her decubitus ulcer. States her last time suprapubic catheter was replaced on February 28, she is due for exchange of suprapubic catheter. Denies use of tobacco or alcohol or recreational drugs. Is full code. 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 Patient was noted to have C. difficile in the ED and started on Dificid. Patient had history of C. difficile about 6 years ago per her. Maintain contact precautions. Admission Exam Per Admitting Provider GENERAL: Alert and oriented x3. NAD, on RA. HEENT: No pallor, no icterus. Pupils equal, round and reactive to light. Oral mucosa moist. NECK: No JVD, no neck masses. Healed tracheostomy scar noted. Right chest access port noted. HEART: S1 and S2 heard. Regular rate and rhythm. No murmur, no gallop. RESPIRATORY SYSTEM: Normal AP diameter. No accessory muscle use. No wheezing, no crackles. ABDOMEN: Soft, bowel sounds present, mild distention. Positive tenderness on superficial palpation. Suprapubic catheter with no signs of infection noted. CENTRAL NERVOUS SYSTEM: No facial droop. Speech is clear. Obeys simple commands. paraplegia and paresis of BUE noted. EXTREMITIES: No edema, no erythema seen. Urinary bag with light yellow urine collection noted. Principal Dx & Hospital Course #1 = Principal Diagnosis (1) C. difficile colitis: This is a 32-year-old lady with PMH of cervical spine injury with quadriplegia, DVT on Xarelto, recurrent/chronic pressure ulcer status post debridement and hamstring flap closure May 2021, anxiety, depression, spastic neurogenic bladder status suprapubic catheter, history of recurrent UTI, persistent insomnia presented to the ED 04/02 with complaint of loose stools for 2 days associated with fever/abdominal pain/headache/poor appetite/nausea/dry heaves following 10 day augmentin course and was found to have c difficile colitis. Patient reports that this would be her second C. difficile infection, first episode was a few years ago. Placed on fidaxomicin 200 mg twice daily, IV fluids, electrolytes replaced. GI evaluated the patient and recommended 10 D course of Dificid. There was consideration of starting Flagyl if persistence of loose bowel movements, but due to significant improvement on just Dificid, Flagyl was not started. Found to have an abnormal UA likely secondary to coloni zation iso chronic suprapubic cath. Urine culture withmixed probable skin inga - No further identifications or sensitivities to follow. Patient comfortable and hemodynamically stable at time of dc home. Discharge Exam Gen: WD/WN, NAD, A&O x3 HEENT: Normocephalic, atraumatic, conjunctivae moist, sclerae anicteric, mucous membranes moist. Lung: Clear to Auscultation bilaterally, no wheezes/rales/rhonchi Heart: Regular rate, regular rhythm, no murmurs, rubs, or gallops, +suprapubic catheter Abdomen: Soft, NT, ND +BS x 4 Extremities: No edema, quadriplegic Skin: Warm, no rash Updated Medication List Medication Instructions Recorded Confirmed Type ascorbic acid (vitamin C) 1,000 mg 1 g PO BID 03/07/18 04/02/23 History tablet buspirone 10 mg tablet 0 mg PO BID 03/07/18 04/02/23 History dantrolene 100 mg capsule 100 mg PO TID 03/07/18 04/02/23 History docusate sodium 100 mg tablet 100 mg PO BID 03/07/18 04/02/23 History fluticasone propionate 50 2 spray intranasal QAM PRN 03/07/18 04/02/23 History mcg/actuation nasal allergies spray,suspension (Flonase Allergy Relief) lorazepam 0.5 mg tablet (Ativan) 0.5 mg PO Q8 PRN Anxiety 03/07/18 04/02/23 History methenamine hippurate 1 gram 1 g PO BID 03/07/18 04/02/23 History tablet (Hiprex) rivaroxaban 20 mg tablet (Xarelto) 20 mg PO QAM 03/07/18 04/02/23 History zolpidem 5 mg tablet (Ambien) 5 mg PO HS PRN Sleep 03/07/18 04/02/23 History nystatin 100,000 unit/gram topical 1 applic topical BID PRN Skin 03/18/18 04/02/23 History powder Irritation guaifenesin 600 mg tablet, 600 mg PO Q12H 04/06/18 04/02/23 History extended release 12 hr (Mucinex) baclofen 20 mg tablet 20 mg PO QID 12/28/18 04/02/23 History duloxetine 60 mg capsule,delayed 60 mg PO BID 02/02/19 04/02/23 History release (Cymbalta) gabapentin 600 mg tablet 0 mg PO QID 02/02/19 04/02/23 History baclofen 10 mg tablet 0 mg PO QID 09/25/19 04/02/23 History docusate sodium 283 mg/5 mL enema 283 mg MN HS 09/25/19 04/02/23 History (Enemeez) gabapentin 300 mg capsule 0 mg PO QID 09/25/19 04/02/23 History potassium chloride 10 mEq 10 meq PO BID 09/29/20 04/02/23 History capsule,extended release acetaminophen 500 mg tablet 1,000 mg PO Q6H PRN Fever Or Pain 01/07/21 04/02/23 History (Tylenol Extra Strength) epinephrine 0.3 mg/0.3 mL 0.3 mg (0.3 mL) IM ONCE PRN 01/07/21 04/02/23 Rx injection, auto-injector (EpiPen anaphylaxis #1 ea 2-Fam) oxycodone-acetaminophen 10 mg-325 1 tab PO Q6 PRN Pain 01/07/21 04/02/23 History mg tablet morphine 15 mg tablet,extended 15 mg PO Q12H 03/27/21 04/02/23 History release citric ac 1980.6 mg-glucono 59.4 30 ml irrigation 3XWK #900 mL 12/11/21 04/02/23 Rx mg-mag carb 980.4 mg/30 mL irrig.soln (Renacidin) aripiprazole 2 mg tablet (Abilify) 1 mg PO DAILY 08/10/22 04/02/23 History albuterol sulfate 90 mcg/actuation 2 inh inhalation Q6H PRN shortness 12/15/22 04/02/23 Rx aerosol inhaler (Proventil HFA) of breath or wheezing #8.5 grams hydroxyzine HCl 25 mg tablet 25 mg PO HS PRN Anxiety 12/15/22 04/02/23 History Flutter Valve #1 ea 12/23/22 02/22/23 Rx Incentive Spirometer #1 ea 12/23/22 02/22/23 Rx melatonin 3 mg tablet 3 mg PO HS PRN Sleep 02/22/23 04/02/23 History trazodone 50 mg tablet 50 mg PO HS PRN Sleep 02/22/23 04/02/23 History fidaxomicin 200 mg tablet (Dificid) 200 mg PO BID 7 days #14 tabs 04/05/23 Rx lactobacillus combination no.4 3 3,000 mmu cells PO DAILY #10 caps 04/08/23 Rx billion cell capsule (Probiotic) Hospital Stay Data Consultations 04/02/23 09:50 ED Decision to Admit Stat 04/02/23 10:48 Consult Gastroenterology Routine Diagnostic Imagining Performed 04/02/23 07:12 CT abd pelvis IV con only Stat Pending Results Patient Have Any Pending Studies at Discharge: No Discharge Instructions Given to Patient (Per Discharging Provider) MEDICATION CHANGES: Continue Dificid twice a day to complete course. Probiotic daily x 10 days for GI Health. SUMMARY OF TEST RESULTS: You were admitted to hospital secondary to diarrhea and found to have C. difficile infection on stool culture PENDING TEST RESULTS: None RECOMMENDATIONS FOR FOLLOW-UP: Follow up with PCP and GI as scheduled. Complete antibiotic in its entirety. Practice frequent handwashing and contact precautions for yourself and caregivers as antibiotic treatment still ongoing. Continue medication regimen as scheduled aside from changes noted above. OTHER INSTRUCTIONS: Seek medical attention if you have: * temperature above 101 * chest pain or trouble breathing * abdominal pain, nausea, vomiting * diarrhea, dark stools or bloody stools * any unanswered questions or concerns Call 911 if symptoms are severe. Please take good care of yourself. Call if you have any questions or problems. You can reach a [facility] hospitalist on duty at [facility] 24 hours a day by calling [phone]. Total Time Total Time Spent Total Time Spent (In Minutes): 55
--- OUTSIDE RECORDS SUMMARY | 2023-04-08 13:26 | External Medical Summary | Summary of Care ---
Author Name Unknown Organization [facility] Address [address] [place] [address] Phone [phone] Care Team Providers Care Pathology Laboratory Aides Teacher Name Role Phone Wade Lacy MD Primary Care Provider [phone] Encounter Details Date Type Department Care Team (Late st Contact Info) Description 03/30/2023 Telephone Family Practice [facility] [address] [place] [id number] Wade Lacy MD [address] [place] [phone] Allergies Active Allergy Reactions Criticality Noted Date Comments Cephalosporins Anaphylaxis High 05/16/2014 Anaphylaxis within 10 minutes of IV dose cefepime (noted in '14) Has tolerated cefazolin many times since 2013. Fentanyl Hives High 06/15/2018 Imipenem Seizure High 08/17/2012 Seizure (noted in '13) Levofloxacin 06/14/2014 Patient cannot remember the reaction specifically, but admits to taking ciprofloxacin in the past without any known issue. Vancomycin Rash 09/06/2012 Occurred in hospital at [facility] (noted in '13). Unsure if [place] vs idiopathic rash vs IgE-mediated allergy documented as of this encounter (statuses as of 03/30/2023) Medications Medication Sig Dispensed Refills Start Date End Date Status mirtazapine (REMERON) 7.5 MG Tablet Take 1 Tablet by mouth at bedtime. 0 Active DULoxetine (CYMBALTA) 30 MG CPEP Take 2 Capsules by mouth in the morning and 2 Capsules before bedtime. 0 Active fluticasone (FLONASE) 50 MCG/ACT nasal sprayIndications:Ch ronic rhinitis Administer 2 Sprays into each nostril daily. 1 Inhaler 5 04/08/2016 Active oxybutynin (DITROPAN) 5 MG TabletIndications:C hronic UTI Take 1 Tab by mouth every 6 hours. 120 Tab 11 10/19/2016 Active metroNIDAZOLE, topical, (METROCREAM) 0.75 % creamIndications:Ac ne vulgaris Apply topically to affected area 2 times a day. apply to affected area. 45 g 5 03/17/2017 Active busPIRone (BUSPAR) 10 MG Tablet Take 1 Tablet by mouth in the morning and 1 Tablet before bedtime. 0 05/16/2019 Active melatonin 3 MG Tablet Take 1 Tab by mouth at bedtime. 0 05/16/2019 Active Zolpidem Tartrate 5 MG Oral Tablet Take 1 Tablet by mouth at bedtime as needed for Sleep. 0 05/16/2019 Active LORAzepam (ATIVAN) 0.5 MG Tablet Take 1 Tablet by mouth 3 times a day as needed for Anxiety. 0 05/16/2019 Active nystatin (NYSTOP) 286324 UNIT/GM powder Apply topically to affected area 3 times a day. Apply to Twice daily to groin for skin irritation 60 g 1 02/01/2020 Active Polyethylene Glycol 3350 17 GM Oral Packet Take 17 g by mouth daily. 0 Active Renacidin Irrigation Solution Irrigate with 30 mL as directed. Three times/week 0 Active Lidocaine 5 % External Ointment Apply topically to affected area. 0 03/01/2020 Active MEDICAL INSTRUCTIONSIndicat ions:Subacute osteomyelitis of sacrum (HCC) Deaccess port after completing 14-day course of daptomycin 1 Each 0 11/21/2020 Active Additional Information Patient not taking.Reported on 2022 EPINEPHrine 0.3 MG/0.3ML Injection Solution Auto-injector (Autoinjector)Indic ations:Subacute osteomyelitis of sacrum (HCC) For a severe reaction: Inject in outer thigh following instructions on package and go to the Emergency room. 2 Each 0 11/21/2020 Active Sodium Chloride 1 GM Oral Tablet TAKE TWO TABLETS (2 GRAMS) BY MOUTH THREE TIMES DAILY 180 Tablet 3 09/04/2021 Active Additional Information Patient not taking.Reported on 10/01/2022 Famotidine 20 MG Oral Tablet (Pepcid)Indications :Acute gastritis without hemorrhage, unspecified gastritis type Take by mouth 1 Tablet in the morning AND 1 Tablet before bedtime. 60 Tablet 1 03/20/2022 Active Additional Information Patient not taking.Reported on 10/01/2022 Baclofen 20 MG Oral Tablet Take 1 Tablet by mouth in the morning and 1 Tablet at noon and 1 Tablet in the evening and 1 Tablet before bedtime. 360 Tablet 5 07/06/2022 Active Dantrolene Sodium 100 MG Oral Capsule Take 1 tablet three times daily 270 Capsule 3 07/06/2022 Active Baclofen 10 MG Oral Tablet (Lioresal) Take 1 Tablet by mouth in the morning and 1 Tablet at noon and 1 Tablet in the evening and 1 Tablet before bedtime. 360 Tablet 5 07/06/2022 Active Xarelto 20 MG Oral Tablet (Rivaroxaban)Indica tions:Anticoagulati on adequate TAKE 1 TABLET BY MOUTH DAILY WITH DINNER FOR BLOOD CLOT PREVENTION 90 Tablet 2 08/22/2022 Active ARIPiprazole 5 MG Oral Tablet Take 1 Tablet by mouth in the morning. 0 Active Methenamine Hippurate 1 GM Oral Tablet (Hiprex) TAKE 1 TABLET BY MOUTH TWICE A DAY 60 Tablet 5 12/02/2022 Active Docusate Sodium 100 MG Oral Capsule (Colace)Indications :Constipation TAKE 1 CAPSULE BY MOUTH TWICE A DAY 180 Capsule 3 12/07/2022 Active [facility] Mucus Extended Release 600 MG Oral Tablet Extended Release 12 Hour (guaiFENesin ER) TAKE 1 TABLET BY MOUTH IN THE MORNING AND BEFORE BEDTIME 60 Tablet 2 02/05/2023 Active Ascorbic Acid 500 MG Oral Tablet ([facility] Vitamin C) TAKE 2 TABLETS BY MOUTH TWICE A DAY FOR 30 DAYS 120 Tablet 11 03/04/2023 Active Morphine Sulfate ER 15 MG Oral Tablet Extended Release (MS Contin)Indications: Chronic ulcer of sacral region with fat layer exposed (HCC) Take 1 Tablet by mouth in the morning and 1 Tablet before bedtime. 60 Tablet 0 03/11/2023 Active HYDROcodone-Acetami nophen 10-325 MG Oral TabletIndications:N europathic pain,Chronic ulcer of sacral region with fat layer exposed (HCC) Take 1 Tablet by mouth every 6 hours as needed for Pain, Severe. 120 Tablet 0 03/15/2023 Active Gabapentin 600 MG Oral Tablet (Neurontin) Take 1 Tablet by mouth in the morning and 1 Tablet at noon and 1 Tablet in the evening and 1 Tablet before bedtime. 360 Tablet 1 03/22/2023 Active Gabapentin 300 MG Oral Capsule (Neurontin) TAKE 1 CAPSULE BY MOUTH FOUR TIMES A DAY Strength: 300 mg 360 Capsule 1 03/22/2023 Active Potassium Chloride ER 10 MEQ Oral Capsule Extended Release TAKE 1 CAPSULE BY MOUTH TWICE A DAY 180 Capsule 1 03/25/2023 Active oxyCODONE-Acetamino phen 5-325 MG Oral Tablet (Percocet)Indicatio ns:Controlled substance agreement signed,Chronic ulcer of sacral region with fat layer exposed (HCC) Take 1 Tablet by mouth every 6 hours as needed for Pain, Severe. 120 Tablet 0 03/26/2023 Active Enemeez Mini 283 MG/5ML Rectal Enema (Docusate Sodium)Indications: C6 cervical fracture (HCC) Administer 5 mL into the rectum daily as needed for Constipation. USE EVERY EVENING FOR BOWEL MOVEMENT DIRECTED Strength: 283 MG/5ML 5 Each 5 03/30/2023 Active documented as of this encounter (statuses as of 03/30/2023) Active Problems Problem Noted Date Diagnosed Date Encounter for adjustment and management of vascular access device 05/28/2022 Depression with anxiety 04/22/2022 Suprapubic catheter 04/22/2022 Thrombocytopenia 11/17/2021 Autonomic dysfunction 06/18/2021 Osteomyelitis of pelvic region 06/18/2021 Percutaneous endoscopic gastrostomy status 06/18 Controlled substance agreement signed 03/05/2021 Persistent insomnia 08/22/2020 Chronic ulcer of sacral region with fat layer ex posed 08/22/2020 Quadriplegia, C1-C4 complete 04/08/2020 Port-A-Cath in place 03/28/2018 History of recurrent UTI (urinary tract infectio n) 05/13/2017 Neuropathic pain 11/23/2015 Spastic neurogenic bladder 11/25/2012 documented as of this encounter (statuses as of 03/30/2023) Resolved Problems Problem Noted Date Diagnosed Date Resolved Date Anxiety 06/18/2021 06/18/2021 Calculus of urinary bladder 06/18/2021 04/22/2022 Pressure injury of left barbara ignacio ischial region, unstageable 06/18/2021 06/25/2021 Pressure injury of left buttock, stage 3 06/18/2021 06/18/2021 Tinea corporis 06/18/2021 02/24/2022 Encounter for central line care 10/09/2020 06/18/2021 PICC (peripherally inserted central catheter) flush 10/08/2020 03/05/2021 LOU (generalized anxiety disorder) 08/22/2020 04/22/2022 Hypotension 08/22/2020 10/16/2021 Osteomyelitis of second toe of right foot 11/25/2018 06/18/2021 History of DVT (deep vein thrombosis) 08/30/2017 06/18/2021 Neurogenic bladder 10/26/2014 8 Abdominal pain 09/14/2014 03/23/2017 Neurogenic bladder 09/06/2013 7 History of pneumonia 06/17/2013 021 Cough 06/17/2013 03/23/2017 Acute pharyngitis 06/17/2013 03/23/2017 Closed fracture of sixth cervical vertebra 02/20/2013 06/18/2021 Recurrent major depressive d isorder, in full remission 11/02/2012 04/22/2022 Vasomotor instability 08/17/20122020 History of tracheostomy 06/01/201205/31 Quadriplegia 05/18/2012 06/18/2021 History of cervical fracture 04/06/2012 06/18/2021 Overview: C6 "Burst" fracture Ventilator dependent 04/06/2012 012 Routine general medical exam ination at a health care facility 12/04/2011 08/22/2020 Overview: [id number] Chlamydia trachomatis infect ion of lower genitourinary site 12/04/2011 03/23/2017 Overview: 12/09 treated--pt to have partner treated Acute pharyngitis 09/27/2010 12/03/2010 Cough 09/27/2010 12/03/2010 Allergic rhinitis 09/27/2010 08/22/2020 Acute sinusitis 09/27/2010 12/03/2010 Dysfunction of eustachian tube 09/27/2010 03/23/2017 Acute tonsillitis 08/12/2009 12/03/2010 ADVANCE DIRECTIVE INFORMATION 10/13/2005 08/22/2020 Overview: Not applicable. documented as of this encounter (statuses as of 03/30/2023) Immunizations Name Administration Dates Next Due Adenovirus Type 4 And Type 7 Vacc, Live Oral 04/17/2011 H1N1 2009 Influenza, IM 05/07/2009 HPV Vaccine, 4-Valent 07/28/2007,03/31/2007,12/30 HepA Inact/HepB Recomb>=18yrs old 06/16/2011 Hepatitis B, 20+ yrs 05/28/1993,01/30/1993,11/21 IPV - Polio Virus Vaccine (Inact) 04/17/2011 Meningococcal Conjugate Vacc ine (Menactra/Menveo) 12/23/2006 Meningococcal MCV4P Conjugat e Vaccine (Menactra) 04/17/2011,12/23/2006 PPD 11/18/2010 Pneumococcal Polysaccharide PPV23 (Pneumovax) 01/08/2012 Rabies Vaccine (Rabavert) 12/10/2011,11/26/2011, 11/19/2011 SEASONAL INFLUENZA, PF, 6 M & Above, IM , (FLULAVAL or FLUZONE) 04/22/2022,03/05/2021,03/29/2019,03/03,03/23/2017 Seasonal Influenza Intranasal 04/17/2011 Seasonal Influenza Virus Vac cine, Unspecified Formulation 03/29/2019,03/03/2018,03/23/2017,05/08,02/01/2012,03/21/2010,02/26/2009 Seasonal Influenza, Quadriva lent, No Preserve, IM 05/08/2016 Seasonal Influenza, Split, I IV3, With Preserve, Inj 02/13/2015,02/14/2014,02/15/2013,06/29,03/21/2010,02/26/2009 TDAP (age 11 and older)(Adacel) 04/17/2011,12/23 documented as of this encounter Social History Tobacco Use Types Packs/Day Years Used Date Smoking Tobacco: Former Cigarettes 0.5 Q uit: 01/07/2012 Smokeless Tobacco: Never Comments:no passive smoke Alcohol Use Standard Drinks/Week Comments Yes 0 (1 standard drink = 0.6 oz pur e alcohol) rarely PHQ-2 Answer Date Recorded PHQ Adult Total Score 2 08/23/2020 Hunger Vital Sign Answer Date Recorded Worried About Running Out of Food in the Last Ye ar Never true 11/25/2018 Ran Out of Food in the Last Year Never true 11/25/2018 Sex and Gender Information Value Date Recorded Sex Assigned at Not on file Gender Identity Not on file Sexual Orientation Not on file Job Start Date Occupation Industry Not on file Not on file Not on file documented as of this encounter Functional Status Functional Status Response Date of Assess ment Are you deaf or do you have serious difficulty h earing? No 09/06/2013 Are you blind or do you have serious difficulty seeing, even when wearing glasses? No 09/06/2013 Do you have serious difficul ty walking or climbing stairs? (5 years old or older) Yes 09/06/2013 Do you have difficulty dress ing or bathing? (5 years old or older) Yes 09/06/2013 Because of a physical, menta l, or emotional condition, do you have difficulty doing errands alone such as visiting a doctor s office or shopping? (15 years old or older) No 09/07/19 14 Cognitive Status Response Date of Assessm ent Because of a physical, menta l, or emotional condition, do you have serious difficulty concentrating, remembering, or making decisions? (5 years old or older No 09/06/2013 documented as of this encounter Miscellaneous Notes * Telephone Encounter - Angélica Rogers - 03/30/2023 2:53 PM EDT [facility] Pharmacy put in a backorder product/unavailable for medication hydrocodone because they can notget it at that pharmacy documented in this encounter Plan of Treatment Upcoming Encounters Date Type Department Care Team (Latest Contact Info) Description 04/19/2023 10:45 AM EST Immunization/Injecti on Hematology/Oncolo gy Treatment, [place] [address] [place] [address] Nurse, Med [address] [place] [address] 05/27/2023 1:00 PM EST Telemedicine Pharmacy, [facility] [address] [address] [facility] [address] [place] [address] 07/02/2023 7:30 AM EST Hospital En[place] [facility] [place] [facility] [place] [address] [place] [facility] [place] [address] Noel Benites MD [address] [place] [address] 07/02/2023 7:30 AM EST - 07/02/2023 11:11 AM EST Surgery [place] [facility] [address] [place] [address] Noel Benites MD [address] [place] [address] TYMPANOPLASTY WITHOUT OSSICULAR CHAIN RECONSTRUCTION 07/15/2023 3:45 PM EST Office Visit Otolaryngology/He ad & Neck/Facial Plastic Surgery [address] [place] [address] Noel Benites MD [address] [place] [address] 08/12/2023 2:30 PM EDT Office Visit [facility] [address] [facility] [place] [address] Back[facility]Piper CRNP [address] [facility] [address] Scheduled Procedures Name Priority Associated Diagnoses Date/Ti me TYMPANOPLASTY WITHOUT OSSICULAR CHAIN RECONSTRUCTION Perforation of both tympanic membranes Conductive hearing loss, bilateral 07/02/2023 7:30 AM EST Health Maintenance Due Date Last Done Comments Hepatitis C Screening 2010 DTaP,Tdap,and Td Vaccines (7 - Td or Tdap) 04/17/2021 04/17/2011, 12/23/2006, 11/22/1997, Additional history exists Depression Screening 08/23/2021 08/23/2020 HPV/Co-Test 2022 COVID-19 Vaccine ( season) 2023 04/10/2021, 10/07/2020, 09/16/2020 Influenza Vaccine (FLU shot) (#1) 2023 04/22/2022, 03/05/2021, 03/05/2021, Additional history exists Cervical Cancer Screening 08/29/2023 Pap Smear 08/29/2023 08/28/2020 GARDASIL-HPV IMMUNIZATION SERIES Completed 07/28/2007, 03/31/2007, 01/19/2007 MENINGOCOCCAL (MENACTRA/MENVEO) Completed 04/17/2011, 12/23/2006, 12/23/2006 Hepatitis B Completed 06/16/2011, 05/01, 05/28/1993, Additional history exists Pneumococcal Vaccine: Pediatrics (0 to 5 Years) and At-Risk Patients (6 to 64 Years) Aged Out 01/08/2012 No longer eligible based on patient's age to complete this topic documented as of this encounter Medical Devices Not on filedocumented as of this encounter Advance Directives Latest Code Status on File Code Status Date Activated Date Inactivated Comments Full Code 09/14/2014 2:39 AM 09/22/2014 6:47 PM Question Answer Comments Discussion of Advance Direct cecilia occurred with: Not Discussed Does the patient have a Living Will? No Does the patient have Health Care Power of Applications Programmer? No Code Status History Code Status Date Activated Date Inactivated Comments Full Code 09/06/2013 3:12 PM 09/11/2013 7:57 PM This o rder reflects the patients wishes and were consensually agreed upon. Care Teams Pathology Laboratory Aides Teacher Relationship Specialty Start Date End Date Wade Lacy MD [address] [facility] [place] [address] PCP - General Family Medicine 08/22/20 documented as of this encounter
--- OUTSIDE RECORDS SUMMARY | 2023-04-08 13:26 | External Medical Summary | Summary of Care ---
Author Name Unknown Organization [facility] Address [address] [place] [address] Phone [phone] Care Team Providers Care Horticultural Specialty Grower Name Role Phone Ally Pineda MD Primary Care Provider [phone] Reason for Visit * Reason Onset Date Comments Medication Refill 03/21/2023 Encounter Details Date Type Department Care Team (Late st Contact Info) Description 03/21/2023 Refill Family Practice [facility] [address] [place] [address] [facility] [place] [address] Allergies Active Allergy Reactions Criticality Noted [...] Vancomycin Rash 09/06/2012 Occurred in hospital at [facility] (noted in '13). Unsure if Redmans vs idiopathic rash vs IgE-mediated allergy documented as of this encounter (statuses as of 03/22/2023) Medications Medication Sig Dispensed Refills Start Date End Date Status mirtazapine (REMERON) 7.5 MG Tablet Take 1 Tablet by mouth at bedtime. 0 Active DULoxetine (CYMBALTA) 30 MG CPEP Take 2 Capsules by mouth in the morning and 2 Capsules before bedtime. 0 Active fluticasone (FLONASE) 50 MCG/ACT nasal sprayIndications:C hronic rhinitis Administer 2 Sprays into each nostril daily. 1 Inhaler 5 04/08/2016 Active oxybutynin (DITROPAN) 5 MG TabletIndications: Chronic UTI Take 1 Tab by mouth every 6 hours. 120 Tab 11 10/19/2016 Active metroNIDAZOLE, topical, (METROCREAM) 0.75 % creamIndications:A cne vulgaris Apply topically to affected area 2 [...] for Anxiety. 0 05/16/2019 Active nystatin (NYSTOP) 229432 UNIT/GM powder Apply topically to affected area [...] to affected area. 0 03/01/2020 Active MEDICAL INSTRUCTIONSIndica tions:Subacute osteomyelitis of sacrum (HCC) Deaccess port after completing 14-day course of daptomycin 1 Each 0 11/21/2020 Active Additional Information Patient not taking.Reported on 2022 EPINEPHrine 0.3 MG/0.3ML Injection Solution Auto-injector (Autoinjector)Shanita cations:Subacute osteomyelitis of sacrum (HCC) For a severe reaction: Inject in outer thigh following instructions on package and go to the Emergency room. 2 Each 0 11/21/2020 Active Sodium Chloride 1 GM Oral Tablet TAKE TWO TABLETS (2 GRAMS) BY MOUTH THREE TIMES DAILY 180 Tablet 3 09/04/2021 Active Additional Information Patient not taking.Reported on 10/01/2022 Potassium Chloride ER 10 MEQ Oral Capsule Extended Release TAKE 1 CAPSULE BY MOUTH TWICE A DAY 180 Capsule 3 01/09/2022 Active Famotidine 20 MG Oral Tablet (Pepcid)Indication s:Acute gastritis without hemorrhage, unspecified gastritis type Take by mouth 1 Tablet in the morning AND 1 Tablet before bedtime. 60 Tablet 1 03/20/2022 Active Additional Information Patient not taking.Reported on 10/01/2022 Enemeez Mini 283 MG/5ML Rectal Enema (Docusate Sodium)Indications :C6 cervical fracture (HCC) USE EVERY EVENING FOR BOWEL MOVEMENT DIRECTED 5 Each 5 04/06/2022 Active Baclofen 20 MG Oral Tablet Take 1 [...] 07/06/2022 Active Xarelto 20 MG Oral Tablet (Rivaroxaban)Indic ations:Anticoagula tion adequate TAKE 1 TABLET BY MOUTH DAILY WITH DINNER FOR BLOOD CLOT PREVENTION 90 Tablet 2 08/22/2022 Active ARIPiprazole 5 MG Oral Tablet Take 1 Tablet by mouth in the morning. 0 Active Methenamine Hippurate 1 GM Oral Tablet (Hiprex) TAKE 1 TABLET BY MOUTH TWICE A DAY 60 Tablet 5 12/02/2022 Active Docusate Sodium 100 MG Oral Capsule (Colace)Indication s:Constipation TAKE 1 CAPSULE BY MOUTH TWICE A [...] 15 MG Oral Tablet Extended Release (MS Contin)Indications :Chronic ulcer of sacral region with fat layer exposed (HCC) Take 1 Tablet by mouth in the morning and 1 Tablet before bedtime. 60 Tablet 0 03/11/2023 Active HYDROcodone-Acetam inophen 10-325 MG Oral TabletIndications: Neuropathic pain,Chronic ulcer of sacral region with fat [...] 300 mg 360 Capsule 1 03/22/2023 Active Gabapentin 600 MG Oral Tablet (Neurontin) TAKE 1 TABLET BY MOUTH FOUR TIMES A DAY 360 Tablet 1 08/25/2022 03/21/20 Discontinu ed(Refill) Gabapentin 300 MG Oral Capsule (Neurontin) TAKE 1 CAPSULE BY MOUTH FOUR TIMES A DAY 360 Capsule 1 08/25/2022 03/21/20 Discontinu ed(Refill) documented as of this encounter (statuses as of 03/22/2023) Active Problems Problem Noted Date Diagnosed Date [...] as of this encounter (statuses as of 03/22/2023) Resolved Problems Problem Noted Date Diagnosed Date [...] a health care facility 12/04/2011 08/22/2020 Overview: [id number] Chlamydia trachomatis infect ion of lower genitourinary site 12/04/2011 03/23/2017 Overview: 12/09 treated--pt to have partner treated Acute pharyngitis 09/27/2010 12/03/2010 Cough 09/27/2010 12/03/2010 Allergic rhinitis 09/27/2010 08/22/2020 Acute sinusitis 09/27/2010 12/03/2010 Dysfunction of eustachian tube 09/27/2010 03/23/2017 Acute tonsillitis 08/12/2009 12/03/2010 ADVANCE DIRECTIVE INFORMATION 10/13/2005 08/22/2020 Overview: Not applicable. documented as of this encounter (statuses as of 03/22/2023) Immunizations Name Administration Dates Next Due Adenovirus [...] encounter Miscellaneous Notes * Telephone Encounter - Ally Pineda MD - 03/22/2023 9:21 AM EDTSigned Prescriptions: Disp Refills Gabapentin 600 MG Oral Tablet (Neurontin) 360 Ta*1 Sig: Take 1 Tablet by mouth in the morning and 1 Tablet at noon and 1 Tablet in the evening and 1 Tablet before bedtime. Authorizing Provider: ALLY PINEDA Gabapentin 300 MG Oral Capsule (Neurontin) 360 Ca*1 Sig: TAKE 1 CAPSULE BY MOUTH FOUR TIMES A DAY Strength: 300 mg Authorizing Provider: ALLY PINEDA * Telephone Encounter - Evie Baker [facility] - 03/22/2023 8:59 AM EDTPending Prescriptions: Disp Refills Gabapentin 600 MG Oral Tablet (Neurontin) 360 Ta*1 Sig: Take 1 Tablet by mouth in the morning and 1 Tablet at noon and 1 Tablet in the evening and 1 Tablet before bedtime. Gabapentin 300 MG Oral Capsule (Neurontin) 360 Ca*1 Sig: TAKE 1 CAPSULE BY MOUTH FOUR TIMES A DAY Strength: 300 mg * Telephone Encounter - Eive Baker [facility] - 03/22/2023 8:58 AM EDT Did you pend patient's preferred pharmacy and medication before forwarding?yes Pharmacy: [id number] Pending Prescriptions: Disp Refills Gabapentin 600 MG Oral Tablet (Neurontin) 360 Ta*1 Sig: Take 1 Tablet by mouth in the morning and 1 Tablet at noon and 1 Tablet in the evening and 1 Tablet before bedtime. Gabapentin 300 MG Oral Capsule (Neurontin)360 Ca*1 Sig: TAKE 1 CAPSULE BY MOUTH FOUR TIMES A DAY Strength: 300 mg Last Visit: 2022 (in office), 02/24/2022 (telemedicine) Next Visit: Visit date not found If no future appointments scheduled, and last appointment is greater than a year ago, please schedule patient for a follow-up appointment Last date the medication was ordered: 08/25/22 Is this request for a controlled substance?No Urine Drug Screen:No results found. However, due to the size of the patient record, not all encounters were searched. Please check Results Review for a complete set of results. Patient Phone Numbers Labs: Lab Results Component Value Date/Time CREAT 0.2 (L) 05/26/2022 02:43 PM CREAT 0.36 (A) 04/28/2021 12:00 AM CREAT 0.3 (L) 06/17/2017 01:32 PM POTASSIUM 4.3 05/26/2022 02:43 PM POTASSIUM 3.8 04/28/2021 12:00 AM POTASSIUM 3.8 06/17/2017 01:32 PM TSH 1.07 04/03/2022 09:57 AM TSH 1.45 04/09/2020 12:00 AM LDLCALC 127 04/03/2022 09:57 AM ALT 20 04/03/2022 09:57 AM ALT 12 06/17/2017 01:32 PM HGBA1C 5.1 04/03/2022 09:57 AM documented in this encounter Plan of Treatment Upcoming Encounters Date Type Department Care Team (Latest Contact Info) Description 04/19/2023 10:45 AM EST Immunization/Injecti on Hematology/Oncolo gy Treatment, [place] [address] [place] [address] Nurse, Med [address] [place] [address] 05/27/2023 1:00 PM EST Telemedicine Pharmacy, [facility] [address] [place] [address] [facility] [address] [place] [address] 07/02/2023 7:30 AM EST Hospital Encounter [facility], OPERATING ROOM [facility], [place] [address] [place] [facility] [place] [address] Noel [facility]ites MD [address] [facility] [id number] 07/02/2023 7:30 AM EST - 07/02/2023 11:11 AM EST Surgery OR [facility], OPERATING ROOM [facility], [place]ARON [address] [place] [address] Noel Benites MD [address] [place], [place] [id number] TYMPANOPLASTY WITHOUT OSSICULAR CHAIN RECONSTRUCTION 07/15/2023 3:45 PM EST Office Visit Otolaryngology/He ad & Neck/Facial Plastic Surgery [address] [place] [address] Noel Benites MD [address] [place] [address] 08/12/2023 2:30 PM EDT Office [facility] [address] [facility] [place] [address] BackPiper gómez CRNP [address] [place] [address] Scheduled Procedures Name Priority Associated Diagnoses Date/Ti [...] the patient have Health Care Power of Decal Decorator? No Code Status History Code Status Date Activated Date Inactivated Comments Full Code 09/06/2013 3:12 PM 09/11/2013 7:57 PM This o rder reflects the patients wishes and were consensually agreed upon. Care Teams Horticultural Specialty Grower Relationship Specialty Start Date End Date Ally Pineda MD [address] [place] [address] PCP - General Family Medicine 08/22/20 documented as of this encounter
--- OUTSIDE RECORDS SUMMARY | 2023-04-08 13:26 | External Medical Summary | Summary of Care ---
Author Name Unknown Organization [facility] Address [address] [place] [address] Phone [phone] Care Team Providers Care Industrial Health Engineer Name Role Phone Ally Pineda MD Primary Care Provider [phone] Reason for Visit * Reason Onset Date Comments Medication Refill 03/29/2023 Encounter Details Date Type Department Care Team (Late st Contact Info) Description 03/29/2023 Refill Family Practice [facility] [address] [place] [address] Ally Pineda MD [address] [facility] [place] [address] C6 cervical fracture (HCC) Allergies Active Allergy Reactions Criticality Noted Date [...] Vancomycin Rash 09/06/2012 Occurred in hospital at [facility] (noted in '13). Unsure if Redmans vs [...] for Anxiety. 0 05/16/2019 Active nystatin (NYSTOP) 121791 UNIT/GM powder Apply topically to affected area [...] on 10/01/2022 Famotidine 20 MG Oral Tablet (Pepcid)Indication s:Acute [...] A DAY 180 Capsule 1 03/25/2023 Active oxyCODONE-Acetamin ophen 5-325 MG Oral Tablet (Percocet)Indicati ons:Controlled substance agreement signed,Chronic ulcer of sacral region with fat layer exposed (HCC) Take 1 Tablet by mouth every 6 hours as needed for Pain, Severe. 120 Tablet 0 03/26/2023 Active Enemeez Mini 283 MG/5ML Rectal Enema (Docusate Sodium)Indications :C6 cervical fracture (HCC) Administer 5 mL into the rectum daily as needed for Constipation. USE EVERY EVENING FOR BOWEL MOVEMENT DIRECTED Strength: 283 MG/5ML 5 Each 5 03/30/2023 Active Enemeez Mini 283 MG/5ML Rectal Enema (Docusate Sodium)Indications :C6 cervical fracture (HCC) USE EVERY EVENING FOR BOWEL MOVEMENT DIRECTED 5 Each 5 04/06/2022 03/29/20 23 Discontinu ed(Refill) documented as of this encounter [...] a health care facility 12/04/2011 08/22/2020 Overview: [id number] Chlamydia trachomatis infect ion of lower genitourinary [...] Telephone Encounter - Ally Pineda MD - 03/30/2023 11:37 AM EDTSigned Prescriptions: Disp Refills Enemeez Mini 283 MG/5ML Rectal Enema (Docu*5 Each 5 Sig: Administer 5 mL into the rectum daily as needed for Constipation. USE EVERY EVENING FOR BOWEL MOVEMENT DIRECTED Strength: 283 MG/5ML Authorizing Provider: ALLY PINEDA * Telephone Encounter - Tameka Christine LPN - 03/30/2023 10:21 AM EDTPending Prescriptions: Disp Refills Enemeez Mini 283 MG/5ML Rectal Enema (Docu*5 Each 5 * Telephone Encounter - Tameka Christine LPN - 03/30/2023 10:21 AM EDT Did you pend patient's preferred pharmacy and medication before forwarding?yes Pharmacy: [id number] Pending Prescriptions: Disp Refills Enemeez Mini 283 MG/5ML Rectal Enema (Doc*5 Each 5 Last Visit: 2022 (in office), 02/24/2022 (telemedicine) Next Visit: Visit date not found If no future appointments scheduled, and last appointment is greater than a year ago, please schedule patient for a follow-up appointment Last date the medication was ordered: 04/06/2022 Is this request for a controlled substance?No [...] 01:32 PM HGBA1C 5.1 04/03/2022 09:57 AM * Telephone Encounter - Emerson Johns - 03/30/2023 10:13 AM EDTPending Prescriptions: Disp Refills Enemeez Mini 283 MG/5ML Rectal Enema (Docu*5 Each 5 documented in this encounter Plan of Treatment Upcoming Encounters Date Type Department Care Team (Latest Contact Info) Description 04/19/2023 10:45 AM EST Immunization/Injecti on Hematology/Oncolo gy Treatment, [place] [address] [place] [address] Nurse, Med [address] [place] [address] 05/27/2023 1:00 PM EST Telemedicine Pharmacy, [facility] [place] [address] [place] [address] [facility] [address] [facility] [place] [address] 07/02/2023 7:30 AM EST Hospital Encounter OR [facility], OPERATING ROOM [facility], [place] [address] [place] [address] Noel Benites MD [address] [place] [address] 07/02/2023 7:30 AM EST - 07/02/2023 11:11 AM EST Surgery OR [facility], OPERATING ROOM [facility], [place] [address] [place] [address] Noel Benites MD [address] [place] [address] TYMPANOPLASTY WITHOUT OSSICULAR CHAIN RECONSTRUCTION 07/15/2023 3:45 PM EST Office Visit Otolaryngology/He ad & Neck/Facial Plastic Surgery [address] [place] [facility] [address] Noel Benites MD [address] [place] [address] 08/12/2023 2:30 PM EDT Office Visit Gynecology/Obstet [facility] 132 [facility] [place] [address] BackerPiper CRNP [address] [facility] [address] Scheduled Procedures Name Priority Associated Diagnoses Date/Ti [...] Not on filedocumented as of this encounter Visit Diagnoses Diagnosis C6 cervical fracture (HCC) Closed fracture of sixth cervical vertebra without mention of spinal cord injury Perforation of both tympanic membranes Perforation of tympanic membrane, unspecified Conductive hearing loss, bilateral documented in this encounter Advance Directives Latest Code Status on File Code Status Date Activated Date Inactivated Comments Full Code 09/14/2014 2:39 AM 09/22/2014 6:47 PM Question Answer Comments Discussion of Advance Direct cecilia occurred with: Not Discussed Does the patient have a Living Will? No Does the patient have Health Care Power of Vault Maker? No Code Status History Code Status Date Activated Date Inactivated Comments Full Code 09/06/2013 3:12 PM 09/11/2013 7:57 PM This o rder reflects the patients wishes and were consensually agreed upon. Care Teams Industrial Health Engineer Relationship Specialty Start Date End Date Ally Pineda MD [address] [place] [address] PCP - General Family Medicine 08/22/20 documented as of this encounter
--- OUTSIDE RECORDS SUMMARY | 2023-04-08 13:26 | External Medical Summary | Summary of Care ---
Author Name Unknown Organization [facility] Address [address] [place] [address] Phone [phone] Care Team Providers Care Scale Installer Name Role Phone Ally Pineda MD Primary Care Provider [phone] Reason for Visit * Reason Comments eRx-Medication Refill Encounter Details Date Type Department Care Team (Late st Contact Info) Description 03/25/2023 Refill Family Practice [facility] [address] [facility] [place] [address] Ally Pineda MD [address] [place] [address] Allergies Active Allergy Reactions [...] Vancomycin Rash 09/06/2012 Occurred in hospital at [facility] (noted in '13). Unsure if Redmans vs idiopathic rash vs IgE-mediated allergy documented as of this encounter (statuses as of 03/25/2023) Medications Medication Sig Dispensed Refills Start Date End Date Status mirtazapine (REMERON) 7.5 MG Tablet Take 1 Tablet by mouth at bedtime. 0 Active DULoxetine (CYMBALTA) 30 MG CPEP Take 2 Capsules by mouth in the morning and 2 Capsules before bedtime. 0 Active fluticasone (FLONASE) 50 MCG/ACT nasal sprayIndications:C hronic rhinitis Administer 2 Sprays into each nostril daily. 1 Inhaler 5 6 Active oxybutynin (DITROPAN) 5 MG TabletIndications: Chronic UTI Take 1 Tab by mouth every 6 hours. 120 Tab 11 7 Active metroNIDAZOLE, topical, (METROCREAM) 0.75 % creamIndications:A cne vulgaris Apply topically to affected area 2 times a day. apply to affected area. 45 g 5 7 Active busPIRone (BUSPAR) 10 MG Tablet Take 1 Tablet by mouth in the morning and 1 Tablet before bedtime. 0 9 Active melatonin 3 MG Tablet Take 1 Tab by mouth at bedtime. 0 9 Active Zolpidem Tartrate 5 MG Oral Tablet Take 1 Tablet by mouth at bedtime as needed for Sleep. 0 9 Active LORAzepam (ATIVAN) 0.5 MG Tablet Take 1 Tablet by mouth 3 times a day as needed for Anxiety. 0 9 Active nystatin (NYSTOP) 689601 UNIT/GM powder Apply topically to affected area 3 times a day. Apply to Twice daily to groin for skin irritation 60 g 1 0 Active Polyethylene Glycol 3350 17 GM Oral Packet Take 17 g by mouth daily. 0 Active Renacidin Irrigation Solution Irrigate with 30 mL as directed. Three times/week 0 Active Lidocaine 5 % External Ointment Apply topically to affected area. 0 0 Active MEDICAL INSTRUCTIONSIndica tions:Subacute osteomyelitis of sacrum (HCC) Deaccess port after completing 14-day course of daptomycin 1 Each 0 1 Active Additional Information Patient not taking.Reported on 2022 EPINEPHrine 0.3 MG/0.3ML Injection Solution Auto-injector (Autoinjector)Shanita cations:Subacute osteomyelitis of sacrum (HCC) For a severe reaction: Inject in outer thigh following instructions on package and go to the Emergency room. 2 Each 0 1 Active Sodium Chloride 1 GM Oral Tablet TAKE TWO TABLETS (2 GRAMS) BY MOUTH THREE TIMES DAILY 180 Tablet 3 2 Active Additional Information Patient not taking.Reported on 10/01/2022 Famotidine 20 MG Oral Tablet (Pepcid)Indication s:Acute gastritis without hemorrhage, unspecified gastritis type Take by mouth 1 Tablet in the morning AND 1 Tablet before bedtime. 60 Tablet 1 2 Active Additional Information Patient not taking.Reported on 10/01/2022 Enemeez Mini 283 MG/5ML Rectal Enema (Docusate Sodium)Indications :C6 cervical fracture (HCC) USE EVERY EVENING FOR BOWEL MOVEMENT DIRECTED 5 Each 5 2 Active Baclofen 20 MG Oral Tablet Take 1 Tablet by mouth in the morning and 1 Tablet at noon and 1 Tablet in the evening and 1 Tablet before bedtime. 360 Tablet 5 3 Active Dantrolene Sodium 100 MG Oral Capsule Take 1 tablet three times daily 270 Capsule 3 3 Active Baclofen 10 MG Oral Tablet (Lioresal) Take 1 Tablet by mouth in the morning and 1 Tablet at noon and 1 Tablet in the evening and 1 Tablet before bedtime. 360 Tablet 5 3 Active Xarelto 20 MG Oral Tablet (Rivaroxaban)Indic ations:Anticoagula tion adequate TAKE 1 TABLET BY MOUTH DAILY WITH DINNER FOR BLOOD CLOT PREVENTION 90 Tablet 2 3 Active ARIPiprazole 5 MG Oral Tablet Take 1 Tablet by mouth in the morning. 0 Active Methenamine Hippurate 1 GM Oral Tablet (Hiprex) TAKE 1 TABLET BY MOUTH TWICE A DAY 60 Tablet 5 3 Active Docusate Sodium 100 MG Oral Capsule (Colace)Indication s:Constipation TAKE 1 CAPSULE BY MOUTH TWICE A DAY 180 Capsule 3 3 Active [facility] Mucus Extended Release 600 MG Oral Tablet Extended Release 12 Hour (guaiFENesin ER) TAKE 1 TABLET BY MOUTH IN THE MORNING AND BEFORE BEDTIME 60 Tablet 2 3 Active Ascorbic Acid 500 MG Oral Tablet ([facility]S Vitamin C) TAKE 2 TABLETS BY MOUTH TWICE A DAY FOR 30 DAYS 120 Tablet 11 3 Active Morphine Sulfate ER 15 MG Oral Tablet Extended Release (MS Contin)Indications :Chronic ulcer of sacral region with fat layer exposed (HCC) Take 1 Tablet by mouth in the morning and 1 Tablet before bedtime. 60 Tablet 0 3 Active HYDROcodone-Acetam inophen 10-325 MG Oral TabletIndications: Neuropathic pain,Chronic ulcer of sacral region with fat layer exposed (HCC) Take 1 Tablet by mouth every 6 hours as needed for Pain, Severe. 120 Tablet 0 3 Active Gabapentin 600 MG Oral Tablet (Neurontin) Take 1 Tablet by mouth in the morning and 1 Tablet at noon and 1 Tablet in the evening and 1 Tablet before bedtime. 360 Tablet 1 3 Active Gabapentin 300 MG Oral Capsule (Neurontin) TAKE 1 CAPSULE BY MOUTH FOUR TIMES A DAY Strength: 300 mg 360 Capsule 1 3 Active Potassium Chloride ER 10 MEQ Oral Capsule Extended Release TAKE 1 CAPSULE BY MOUTH TWICE A DAY 180 Capsule 1 3 Active Potassium Chloride ER 10 MEQ Oral Capsule Extended Release TAKE 1 CAPSULE BY MOUTH TWICE A DAY 180 Capsule 3 2 03/25/20 23 Discontinued documented as of this encounter (statuses as of 03/25/2023) Active Problems Problem Noted Date Diagnosed Date [...] as of this encounter (statuses as of 03/25/2023) Resolved Problems Problem Noted Date Diagnosed Date [...] a health care facility 12/04/2011 08/22/2020 Overview: [id number] Chlamydia trachomatis infect ion of lower genitourinary site 12/04/2011 03/23/2017 Overview: 12/09 treated--pt to have partner treated Acute pharyngitis 09/27/2010 12/03/2010 Cough 09/27/2010 12/03/2010 Allergic rhinitis 09/27/2010 08/22/2020 Acute sinusitis 09/27/2010 12/03/2010 Dysfunction of eustachian tube 09/27/2010 03/23/2017 Acute tonsillitis 08/12/2009 12/03/2010 ADVANCE DIRECTIVE INFORMATION 10/13/2005 08/22/2020 Overview: Not applicable. documented as of this encounter (statuses as of 03/25/2023) Immunizations Name Administration Dates Next Due Adenovirus [...] encounter Miscellaneous Notes * Telephone Encounter - Imer Baker RPh - 03/25/2023 1:24 PM EDTSigned Prescriptions: Disp Refills Potassium Chloride ER 10 MEQ Oral Capsule *180 Ca*1 Sig: TAKE 1 CAPSULE BY MOUTH TWICE A DAYAuthorizing Provider: ALLY PINEDA User: IMER BAKER documented in this encounter Plan of Treatment Upcoming Encounters Date Type Department Care Team (Latest Contact Info) Description 04/19/2023 10:45 AM EST Immunization/Injecti on Hematology/Oncolo gy Treatment, [place] [address] [place] [address] Nurse, Med [address] [place] [address] 05/27/2023 1:00 PM EST Telemedicine Pharmacy, [facility] [address] [facility] [address] [facility] [address] [facility] [place] [address] 07/02/2023 7:30 AM EST Hospital En[place] [facility] [facility] [address] [facility] [place] [address] Noel Benites MD [address] [place] [address] 07/02/2023 7:30 AM EST - 07/02/2023 11:11 AM EST Surgery [place] [facility] [facility] [address] [place] [address] Noel Benites MD [address] [place] [address] TYMPANOPLASTY WITHOUT OSSICULAR CHAIN RECONSTRUCTION 07/15/2023 3:45 PM EST Office Visit Otolaryngology/He ad & Neck/Facial Plastic Surgery [address] [facility] [place] [address] Noel Benites MD [address] [place] [address] 08/12/2023 2:30 PM EDT Office Visit Gynecology/Obstet rics [facility] [address] [facility] [place] [address] Piper Beckwith CRNP [address] [facility] [place] [address] Scheduled Procedures Name Priority Associated Diagnoses Date/Ti [...] the patient have Health Care Power of Wool Classer? No Code Status History Code Status Date Activated Date Inactivated Comments Full Code 09/06/2013 3:12 PM 09/11/2013 7:57 PM This o rder reflects the patients wishes and were consensually agreed upon. Care Teams Scale Installer Relationship Specialty Start Date End Date Ally Pineda MD [address] [place] [address] PCP - General Family Medicine 08/22/20 documented as of this encounter
--- OUTSIDE RECORDS SUMMARY | 2023-04-08 13:27 | External Medical Summary | Summary of Care ---
Author Name Unknown Organization [facility] Address [address] [place] [address] Phone [phone] Care Team Providers Care Assistant Coach Name Role Phone Ally Pineda MD Primary Care Provider [phone] Reason for Visit * Reason Onset Date Comments Medication Refill 03/14/2023 Encounter Details Date Type Department Care Team Description 03/14/2023 Refill Pharmacy, [facility] [address] [place] [address] Candida Lorenz, [address] [place] [address] Neuropathic pain; Chronic ulcer of sacral region with fat layer exposed (HCC) Allergies Active Allergy Reactions Severity Noted Date Comments Cephalosporins Anaphylaxis High 05/16/2014 [...] Vancomycin Rash 09/06/2012 Occurred in hospital at [facility] (noted in '13). Unsure if Redmans vs idiopathic rash vs IgE-mediated allergy documented as of this encounter (statuses as of 03/15/2023) Medications Medication Sig Dispensed Refills Start Date [...] for Anxiety. 0 05/16/2019 Active nystatin (NYSTOP) 638030 UNIT/GM powder Apply topically to affected area [...] before bedtime. 360 Tablet 5 07/06/2022 Active Gabapentin 600 MG Oral Tablet (Neurontin) TAKE 1 TABLET BY MOUTH FOUR TIMES A DAY 360 Tablet 1 08/25/2022 Active Xarelto 20 MG Oral Tablet (Rivaroxaban)Indic ations:Anticoagula tion adequate TAKE 1 TABLET BY MOUTH DAILY WITH DINNER FOR BLOOD CLOT PREVENTION 90 Tablet 2 08/22/2022 Active Gabapentin 300 MG Oral Capsule (Neurontin) TAKE 1 CAPSULE BY MOUTH FOUR TIMES A DAY 360 Capsule 1 08/25/2022 Active ARIPiprazole 5 MG Oral Tablet Take [...] Pain, Severe. 120 Tablet 0 03/15/2023 Active HYDROcodone-Acetam inophen 10-325 MG Oral TabletIndications: Neuropathic pain,Chronic ulcer of sacral region with fat layer exposed (HCC) Take 1 Tablet by mouth every 6 hours as needed for Pain, Severe. 120 Tablet 0 10/30/2022 03/14/20 Discontinu ed(Refill) documented as of this encounter (statuses as of 03/15/2023) Active Problems Problem Noted Date Encounter for adjustment and management of vascular access device 05/28/2022 Depression with anxiety 04/22/2022 Suprapubic catheter 04/22/2022 Thrombocytopenia 11/17/2021 Autonomic dysfunction 06/18/2021 Osteomyelitis of pelvic region Percutaneous endoscopic gastrostomy stat us 06/18/2021 Controlled substance agreement signed Persistent insomnia 08/22/2020 Chronic ulcer of sacral region with fat layer exposed 08/22/2020 Quadriplegia, C1-C4 complete 04/08/2020 Port-A-Cath in place 03/28/2018 History of recurrent UTI (urinary tract infection) 05/13/2017 Neuropathic pain 11/23/2015 Spastic neurogenic bladder 11/25/2012 documented as of this encounter (statuses as of 03/15/2023) Resolved Problems Problem Noted Date Resolved Date Anxiety 06/18/2021 06/18/2021 Calculus of urinary bladder 06/18/2021 11/2 07/2021 Pressure injury of left perineal ischial region, unstageable 06/18/2021 06/25/2021 Pressure injury of left buttock, stage 3 022 06/18/2021 Tinea corporis 06/18/2021 02/24/2022 Encounter for central line care 10/09/2020 06/18/2021 PICC (peripherally inserted central catheter) [facility] 10/08/2020 03/05/2021 LOU (generalized anxiety disorder) 08/22/2020 04/22/2022 Hypotension 08/22/2020 10/16/2021 Osteomyelitis of second toe of right foot 201806/18/2021 History of DVT (deep vein thrombosis) 08/30/2017 06/18/2021 Neurogenic bladder 10/26/2014 06/18/2017 Abdominal pain 09/14/2014 03/23/2017 Neurogenic bladder 09/06/2013 03/23/2017 History of pneumonia 06/17/2013 08/22/2020 Cough 06/17/2013 03/23/2017 Acute pharyngitis 06/17/2013 03/23/2017 Closed fracture of sixth cervical vertebra 02/2006/18/2021 Recurrent major depressive disorder, in full rem ission 11/02/2012 04/22/2022 Vasomotor instability 08/17/2012 08/22/2020 History of tracheostomy 06/01/2012 06/18/19 22 Quadriplegia 05/18/2012 06/18/2021 History of cervical fracture 04/06/2012 Overview: C6 "Burst" fracture Ventilator dependent 04/06/2012 05/23/2012 Routine general medical exam ination at a health care facility 12/04/2011 08/22/2020 Overview: [id number] Chlamydia trachomatis infection of lower genitou rinary site 12/04/2011 03/23/2017 Overview: 12/09 treated--pt to have partner treated Acute pharyngitis 09/27/2010 12/03/2010 Cough 09/27/2010 12/03/2010 Allergic rhinitis 09/27/2010 08/22/2020 Acute sinusitis 09/27/2010 12/03/2010 Dysfunction of eustachian tube 09/27/2010 1 Acute tonsillitis 08/12/2009 12/03/2010 ADVANCE DIRECTIVE INFORMATION 10/13/2005 Overview: Not applicable. documented as of this encounter (statuses as of 03/15/2023) Immunizations Name Administration Dates Next Due Adenovirus [...] = 0.6 oz pur e alcohol) rarely Food Insecurity Answer Date Recorded Within the past 12 months, y ou worried that your food would run out before you got money to buy more. Never true 11/25/2018 Within the past 12 months, t he food you bought just didn't last and you didn't have money to get more. Never true 11/25/2018 Sex Assigned at Date Recorded Not on file Job Start Date Occupation [...] Telephone Encounter - Ally Pineda MD - 03/15/2023 12:05 PM EDTSigned Prescriptions: Disp Refills HYDROcodone-Acetaminophen 10-325 MG Oral T*120 Ta*0 Sig: Take 1 Tablet by mouth every 6 hours as needed for Pain, Severe. Authorizing Provider: ALLY PINEDA * Telephone Encounter - Christina Hardy [facility] - 03/15/2023 7:58 AM EDT Pending Prescriptions: Disp Refills HYDROcodone-Acetaminophen 10-325 MG Oral T*120 Ta*0 Sig: Take 1Tablet by mouth every 6 hours as needed for Pain, Severe. documented in this encounter Plan of Treatment Upcoming Encounters Date Type Specialty Care Team Description 03/18/2023 Immunization/Inject ion Hematology Oncology Nurse, Med [address] [place] [address] 05/27/2023 Telemedicine [facility] [place] [address] [place] [address] 07/02/2023 Hospital Encounter Surgery Noel Benites MD [address], [place] [id number] 07/02/2023 Surgery Surgery Noel Benites MD [address], [place] [phone] TYMPANOPLASTY WITHOUT OSSICULAR CHAIN RECONSTRUCTION 07/15/2023 Office Visit Otolaryngology Noel Benites MD [address], [place] [phone] 08/12/2023 Office Visit Gynecology Obstetrics BackPiper gómez CRNP [address] [place] [address] Scheduled Procedures Name Priority Associated Diagnoses Date/Ti [...] as of this encounter Visit Diagnoses Diagnosis Neuropathic pain Neuralgia, neuritis, and radiculitis, unspecified Chronic ulcer of sacral region with fat layer exposed (HCC) Perforation of both tympanic membranes Perforation of [...] the patient have Health Care Power of Manager Emergency Department? No Code Status History Code Status Date Activated Date Inactivated Comments Full Code 09/06/2013 3:12 PM 09/11/2013 7:57 PM This o rder reflects the patients wishes and were consensually agreed upon. Care Teams Assistant Coach Relationship Specialty Start Date End Date Ally Pineda MD [address] [place] [address] PCP - General Family Medicine 08/22/20 documented as of this encounter
--- OUTSIDE RECORDS SUMMARY | 2023-04-08 13:27 | External Medical Summary | Summary of Care ---
Author Name Unknown Organization [facility] Address [address] [place] [address] Phone [phone] Care Team Providers Care Neon Sign Mechanic Name Role Phone Ally Pineda MD Primary Care Provider [phone] Reason for Visit * Reason Onset Date Comments Medication Refill 03/11/2023 Encounter Details Date Type Department Care Team Description 03/11/2023 Refill Pharmacy, [facility] [address] [place] [address] Ally [facility]ineda MD [address] [facility] [place] [address] Chronic ulcer of sacral region with fat [...] Rash 09/06/2012 Occurred in hospital at [facility] (noted in '13). Unsure if Redmans vs idiopathic rash vs IgE-mediated allergy documented as of this encounter (statuses as of 03/11/2023) Medications Medication Sig Dispensed Refills Start Date [...] for Anxiety. 0 05/16/2019 Active nystatin (NYSTOP) 754864 UNIT/GM powder Apply topically to affected area [...] by mouth in the morning. 0 Active HYDROcodone-Acetam inophen 10-325 MG Oral TabletIndications: Neuropathic pain,Chronic ulcer of sacral region with fat layer exposed (HCC) Take 1 Tablet by mouth every 6 hours as needed for Pain, Severe. 120 Tablet 0 10/30/2022 Active Methenamine Hippurate 1 GM Oral Tablet [...] before bedtime. 60 Tablet 0 03/11/2023 Active Morphine Sulfate ER 15 MG Oral Tablet Extended Release (MS Contin)Indications :Chronic ulcer of sacral region with fat layer exposed (HCC) Take 1 Tablet by mouth in the morning and 1 Tablet before bedtime. 60 Tablet 0 02/08/2023 03/11/20 Discontinu ed(Refill) documented as of this encounter (statuses as of 03/11/2023) Active Problems Problem Noted Date Encounter for [...] as of this encounter (statuses as of 03/11/2023) Resolved Problems Problem Noted Date Resolved Date Anxiety 06/18/2021 06/18/2021 Calculus of urinary bladder 06/18/2021 11/2 07/2021 Pressure injury of left perineal ischial region, unstageable 06/18/2021 06/25/2021 Pressure injury of left buttock, stage 3 022 06/18/2021 Tinea corporis 06/18/2021 02/24/2022 Encounter for central line care 10/09/2020 06/18/2021 PICC (peripherally inserted central catheter) [facility] 10/08/2020 03/05/2021 LOU (generalized anxiety disorder) 08/22/2020 [...] a health care facility 12/04/2011 08/22/2020 Overview: [id number] Chlamydia trachomatis infection of lower genitou rinary site 12/04/2011 03/23/2017 Overview: 12/09 treated--pt to have partner treated Acute pharyngitis 09/27/2010 12/03/2010 Cough 09/27/2010 12/03/2010 Allergic rhinitis 09/27/2010 08/22/2020 Acute sinusitis 09/27/2010 12/03/2010 Dysfunction of eustachian tube 09/27/2010 1 Acute tonsillitis 08/12/2009 12/03/2010 ADVANCE DIRECTIVE INFORMATION 10/13/2005 Overview: Not applicable. documented as of this encounter (statuses as of 03/11/2023) Immunizations Name Administration Dates Next Due Adenovirus [...] Telephone Encounter - Ally Pineda MD - 03/11/2023 9:41 AM EDTSigned Prescriptions: Disp Refills Morphine Sulfate ER 15 MG Oral Tablet Exte*60 Tab*0 Sig: Take 1 Tablet by mouth in the morning and 1 Tablet before bedtime. Authorizing Provider: ALLY PINEDA * Telephone Encounter - Christina Hardy [facility] - 03/11/2023 7:59 AM EDT Pending Prescriptions: Disp Refills Morphine Sulfate ER 15 MG Oral Tablet Exte*60 Tab*0 Sig: Take 1Tablet by mouth in the morning and 1 Tablet before bedtime. documented in this encounter Plan of Treatment Upcoming Encounters Date Type Specialty Care Team Description 03/18/2023 Immunization/Inject ion Hematology Oncology Nurse, Med [address] [place] [address] 05/27/2023 Telemedicine [facility] [place] [address] [facility] [place] [address] 07/02/2023 Hospital Encounter Surgery Noel Benites MD [address], [place] [phone] 07/02/2023 Surgery Surgery Noel Benites MD [address], [place] [phone] TYMPANOPLASTY WITHOUT OSSICULAR CHAIN RECONSTRUCTION 07/15/2023 Office Visit Otolaryngology Noel Benites MD [address], [place] [phone] 08/12/2023 Office Visit Gynecology Obstetrics Piper Beckwith CRNP [address] [facility] [place] [address] Scheduled Procedures Name Priority Associated Diagnoses Date/Ti [...] as of this encounter Visit Diagnoses Diagnosis Chronic ulcer of sacral region with fat [...] the patient have Health Care Power of Curriculum Supervisor? No Code Status History Code Status Date Activated Date Inactivated Comments Full Code 09/06/2013 3:12 PM 09/11/2013 7:57 PM This o rder reflects the patients wishes and were consensually agreed upon. Care Teams Neon Sign Mechanic Relationship Specialty Start Date End Date Ally Pineda MD [address] [place] [address] PCP - General Family Medicine 08/22/20 documented as of this encounter
--- OUTSIDE RECORDS SUMMARY | 2023-04-08 13:27 | External Medical Summary | Summary of Care ---
Author Name Unknown Organization [facility] Address [address] [place] [address] Phone [phone] Care Team Providers Care Concrete Pipe Plant Supervisor Name Role Phone Wade Lacy MD Primary Care Provider [phone] Reason for Visit * Reason Onset Date Comments Surgery 03/19/2023 Encounter Details Date Type Department Care Team Description 03/19/2023 Telephone Otolaryngology/Head & Neck/Facial Plastic Surgery [address] [place] [address] Noel Benites MD [address] [place] [address] Surgery Allergies Active Allergy Reactions Severity Noted Date [...] Vancomycin Rash 09/06/2012 Occurred in hospital at [facility] (noted in '13). Unsure if Redmans vs idiopathic rash vs IgE-mediated allergy documented as of this encounter (statuses as of 03/19/2023) Medications Medication Sig Dispensed Refills Start Date [...] for Anxiety. 0 05/16/2019 Active nystatin (NYSTOP) 159592 UNIT/GM powder Apply topically to affected area [...] 01/09/2022 Active Famotidine 20 MG Oral Tablet (Pepcid)Indications :Acute gastritis without hemorrhage, unspecified gastritis type Take by mouth 1 Tablet in the morning AND 1 Tablet before bedtime. 60 Tablet 1 03/20/2022 Active Additional Information Patient not taking.Reported on 10/01/2022 Enemeez Mini 283 MG/5ML Rectal Enema (Docusate Sodium)Indications: C6 cervical fracture (HCC) USE EVERY EVENING FOR [...] 08/25/2022 Active Xarelto 20 MG Oral Tablet (Rivaroxaban)Indica [...] Pain, Severe. 120 Tablet 0 03/15/2023 Active documented as of this encounter (statuses as of 03/19/2023) Active Problems Problem Noted Date Encounter for adjustment and management of vascular access device 05/28/2022 Depression with anxiety 04/22/2022 Suprapubic catheter 04/22/2022 Thrombocytopenia 11/17/2021 Autonomic dysfunction 06/18/2021 Osteomyelitis of pelvic region Percutaneous endoscopic gastrostomy stat 06/18/2021 Controlled substance agreement signed Persistent insomnia 08/22/2020 Chronic ulcer of sacral region with fat layer exposed 08/22/2020 Quadriplegia, C1-C4 complete 04/08/2020 Port-A-Cath in place 03/28/2018 History of recurrent UTI (urinary tract infection) 05/13/2017 Neuropathic pain 11/23/2015 Spastic neurogenic bladder 11/25/2012 documented as of this encounter (statuses as of 03/19/2023) Resolved Problems Problem Noted Date Resolved Date Anxiety 06/18/2021 06/18/2021 Calculus of urinary bladder 06/18/202104/01 Pressure injury of left perineal ischial region, unstageable 06/18/2021 06/25/2021 Pressure injury of left buttock, stage 3 022 06/18/2021 Tinea corporis 06/18/2021 02/24/2022 Encounter for central line care 10/09/2020 06/18/2021 PICC (peripherally inserted central catheter) [facility] 10/08/2020 03/05/2021 LOU (generalized anxiety disorder) 08/22/2020 [...] a health care facility 12/04/2011 08/22/2020 Overview: [id number] Chlamydia trachomatis infection of lower genitou rinary site 12/04/2011 03/23/2017 Overview: / treated--pt to have partner treated Acute pharyngitis 09/27/2010 12/03/2010 Cough 09/27/2010 12/03/2010 Allergic rhinitis 09/27/2010 08/22/2020 Acute sinusitis 09/27/2010 12/03/2010 Dysfunction of eustachian tube 09/27/2010 1 Acute tonsillitis 08/12/2009 12/03/2010 ADVANCE DIRECTIVE INFORMATION 10/13/2005 Overview: Not applicable. documented as of this encounter (statuses as of 03/19/2023) Immunizations Name Administration Dates Next Due Adenovirus [...] encounter Miscellaneous Notes * Telephone Encounter - ARCENIO Lake - 03/19/2023 1:01 PM EDT Offered sooner surgery date pt declined. Told them I will call if aonther date comes up documented in this encounter Plan of Treatment Upcoming Encounters Date Type Specialty Care Team Description 04/19/2023 Immunization/Inject ion Hematology Oncology Nurse, Med [address] [place] [address] 05/27/2023 [facility]medicine Pharm[facility] [place] [facility] [address] 07/02/2023 Hospital Encounter Surgery Noel Benites MD [address] [place] [address] 07/02/2023 Surgery Surgery Noel Benites MD [address] [place] [address] TYMPANOPLASTY WITHOUT OSSICULAR CHAIN RECONSTRUCTION 07/15/2023 Office Visit Otolaryngology Noel Benites MD [address] [place] [address] 08/12/2023 Office Visit Gynecology Obstetrics Backer, TRISTAN Valentine [address] [place] [phone] Scheduled Procedures Name Priority Associated Diagnoses Date/Ti [...] Question Answer Comments Discussion of Advance Direct eccilia occurred with: Not Discussed Does the patient have a Living Will? No Does the patient have Health Care Power of Chief Radiology? No Code Status History Code Status Date Activated Date Inactivated Comments Full Code 09/06/2013 3:12 PM 09/11/2013 7:57 PM This o rder reflects the patients wishes and were consensually agreed upon. Care Teams Concrete Pipe Plant Supervisor Relationship Specialty Start Date End Date Wade Lacy MD [address] [place] [id number] PCP - General Family Medicine 08/22/20 documented as of this encounter
--- OUTSIDE RECORDS SUMMARY | 2023-04-08 13:28 | External Medical Summary | Summary of Care ---
Author Name Unknown Organization [facility] Address [address] [place] [address] Phone [phone] Care Team Providers Care Stem Processing Machine Operator Name Role Phone Ally Pineda MD Primary Care Provider [phone] Reason for Visit * Reason Onset Date Comments Medication Refill 02/07/2023 Encounter Details Date Type Department Care Team Description 02/07/2023 Refill Pharmacy, [facility] [address] [place] [address] Ally [facility]ineda [facility] [address] [facility] [place] [address] Chronic ulcer of sacral region with fat [...] Vancomycin Rash 09/06/2012 Occurred in hospital at [facility] (noted in '13). Unsure if Redmans vs idiopathic rash vs IgE-mediated allergy documented as of this encounter (statuses as of 02/08/2023) Medications Medication Sig Dispensed Refills Start Date [...] for Anxiety. 0 05/16/2019 Active nystatin (NYSTOP) 360337 UNIT/GM powder Apply topically to affected area [...] A DAY 180 Capsule 3 12/07/2022 Active Ascorbic Acid 500 MG Oral Tablet ([facility] Vitamin C) TAKE 2 TABLETS BY MOUTH TWICE A DAY FOR 30 DAYS 120 Tablet 11 02/04/2023 Active [facility] Mucus Extended Release 600 MG Oral Tablet Extended Release 12 Hour (guaiFENesin ER) TAKE 1 TABLET BY MOUTH IN THE MORNING AND BEFORE BEDTIME 60 Tablet 2 02/05/2023 Active Morphine Sulfate ER 15 MG Oral Tablet Extended Release (MS Contin)Indications :Chronic ulcer of sacral region with fat layer exposed (HCC) Take 1 Tablet by mouth in the morning and 1 Tablet before bedtime. 60 Tablet 0 02/08/2023 Active Morphine Sulfate ER 15 MG Oral Tablet Extended Release (MS Contin)Indications :Chronic ulcer of sacral region with fat layer exposed (HCC) Take 1 Tablet by mouth in the morning and 1 Tablet before bedtime. 60 Tablet 0 01/11/2023 02/08/20 23 Discontinu ed(Refill) documented as of this encounter (statuses as of 02/08/2023) Active Problems Problem Noted Date Encounter for [...] as of this encounter (statuses as of 02/08/2023) Resolved Problems Problem Noted Date Resolved Date Anxiety 06/18/2021 06/18/2021 Calculus of urinary bladder 06/18/2021 11/2 07/2021 Pressure injury of left perineal ischial region, unstageable 06/18/2021 06/25/2021 Pressure injury of left buttock, stage 3 022 06/18/2021 Tinea corporis 06/18/2021 02/24/2022 Encounter for central line care 10/09/2020 06/18/2021 PICC (peripherally inserted central catheter) [facility] 10/08/2020 03/05/2021 LOU (generalized anxiety disorder) [...] a health care facility 12/04/2011 08/22/2020 Overview: [id number] Chlamydia trachomatis infection of lower genitou rinary site 12/04/2011 03/23/2017 Overview: 12/09 treated--pt to have partner treated Acute pharyngitis 09/27/2010 12/03/2010 Cough 09/27/2010 12/03/2010 Allergic rhinitis 09/27/2010 08/22/2020 Acute sinusitis 09/27/2010 12/03/2010 Dysfunction of eustachian tube 09/27/2010 1 Acute tonsillitis 08/12/2009 12/03/2010 ADVANCE DIRECTIVE INFORMATION 10/13/2005 Overview: Not applicable. documented as of this encounter (statuses as of 02/08/2023) Immunizations Name Administration Dates Next Due Adenovirus [...] (Pneumovax) 01/08/2012 Rabies Vaccine (Rabavert) 12/10/2011,11/26/2011, 11/19/2011 Seasonal Influenza Intranasal 04/17/2011 Seasonal Influenza Virus Vac cine, Unspecified Formulation 03/29/2019,03/03/2018,03/23/2017,05/08,02/01/2012,03/21/2010,02/26/2009 Seasonal Influenza, PF, 6 mo ns & Above, IM , (Flulaval) 04/22/2022,03/05/2021,03/29/2019,03/03,03/23/2017 Seasonal Influenza, Quadriva lent, No Preserve, IM [...] Telephone Encounter - Ally Pineda MD - 02/08/2023 8:18 AM EDTSigned Prescriptions: Disp Refills Morphine Sulfate ER 15 MG Oral Tablet Exte*60 Tab*0 Sig: Take 1 Tablet by mouth in the morning and 1 Tablet before bedtime. Authorizing Provider: ALLY PINEDA * Telephone Encounter - Christina Hardy RPh - 02/08/2023 8:18 AM EDT Pending Prescriptions: Disp Refills Morphine Sulfate ER 15 MG Oral Tablet Exte*60 Tab*0 Sig: Take 1Tablet by mouth in the morning and 1 Tablet before bedtime. documented in this encounter Plan of Treatment Upcoming Encounters Date Type Specialty Care Team Description 02/25/2023 Telemedicine Pharmacy [facility] [place] [address] [place] [address] 07/02/2023 Hospital Encounter Surgery Noel Benites MD [address] [place] [address] 07/02/2023 Surgery Surgery Noel Benites MD [address] [place], [place] [id number] TYMPANOPLASTY WITHOUT OSSICULAR CHAIN RECONSTRUCTION 07/15/2023 Office Visit Otolaryngology Noel Benites MD [address] [place], [place] [id number] 08/12/2023 Office Visit Gynecology Obstetrics Backer, TRISTAN Valentine [address] [place] [address] Scheduled Procedures Name Priority Associated Diagnoses Date/Ti me TYMPANOPLASTY WITHOUT OSSICULAR CHAIN RECONSTRUCTION Perforation of both tympanic membranes Conductive hearing loss, bilateral 07/02/2023 7:30 AM EST Health Maintenance Due Date Last Done Comments Hepatitis C Screening 2010 DTaP,Tdap,and Td Vaccines (7 - Td or Tdap) 04/17/2021 04/17/2011, 12/23/2006, 11/22/1997, Additional history exists COVID-19 Vaccine (4 - Pfizer risk series) 06/05/2021 04/10/2021, 10/07/2020, 09/16/2020 Depression Screening 08/23/2021 08/23/2020 HPV/Co-Test 2022 Influenza Vaccine (FLU shot) (#1) 2023 04/22/2022, [...] the patient have Health Care Power of Helicopter Pilot Instructor? No Code Status History Code Status Date Activated Date Inactivated Comments Full Code 09/06/2013 3:12 PM 09/11/2013 7:57 PM This o rder reflects the patients wishes and were consensually agreed upon. Care Teams Stem Processing Machine Operator Relationship Specialty Start Date End Date Ally Pineda MD [address] [place] [address] PCP - General Family Medicine 08/22/20 documented as of this encounter
--- OUTSIDE RECORDS SUMMARY | 2023-04-08 13:28 | External Medical Summary | Summary of Care ---
Author Name Unknown Organization [facility] Address [address] [place] [address] Phone [phone] Care Team Providers Care Mechanic Sound Technician Name Role Phone Wade Lacy MD Primary Care Provider [phone] Reason for Visit * Reason Comments Dosage Adjustment In Person (Anticoag Cl inic) Pain Encounter Details Date Type Department Care Team Description 02/25/2023 [facility]medicine [facility] [address] [facility] [place] [address] [facility] [address] [facility] [address] Chronic ulcer of sacral region with fat layer exposed (HCC)*; Controlled substance agreement signed Allergies Active Allergy Reactions Severity Noted Date [...] Rash 09/06/2012 Occurred in hospital at [facility] (noted in '13). Unsure if Redmans vs idiopathic rash vs IgE-mediated allergy documented as of this encounter (statuses as of 02/25/2023) Medications Medication Sig Dispensed Refills Start Date [...] for Anxiety. 0 05/16/2019 Active nystatin (NYSTOP) 878737 UNIT/GM powder Apply topically to affected area [...] by mouth in the morning. 0 Active HYDROcodone-Acetami nophen 10-325 MG Oral TabletIndications:N [...] before bedtime. 60 Tablet 0 02/08/2023 Active documented as of this encounter (statuses as of 02/25/2023) Active Problems Problem Noted Date Encounter for adjustment and management of vascular access device 05/28/2022 Depression with anxiety 04/22/2022 Suprapubic catheter 04/22/2022 Thrombocytopenia 11/17/2021 Autonomic dysfunction 06/18/2021 Osteomyelitis of pelvic region Percutaneous endoscopic gastrostomy [facility] 06/18/2021 Controlled substance agreement signed Persistent insomnia 08/22/2020 Chronic ulcer of sacral region with fat layer exposed 08/22/2020 Quadriplegia, C1-C4 complete 04/08/2020 Port-A-Cath in place 03/28/2018 History of recurrent UTI (urinary tract infection) 05/13/2017 Neuropathic pain 11/23/2015 Spastic neurogenic bladder 11/25/2012 documented as of this encounter (statuses as of 02/25/2023) Resolved Problems Problem Noted Date Resolved Date Anxiety 06/18/2021 06/18/2021 Calculus of urinary bladder 06/18/202104/01 Pressure injury of left perineal ischial region, unstageable 06/18/2021 06/25/2021 Pressure injury of left buttock, stage 3 022 06/18/2021 Tinea corporis 06/18/2021 02/24/2022 Encounter for central line care 10/09/2020 06/18/2021 PICC (peripherally inserted central catheter) rust 10/08/2020 03/05/2021 LOU (generalized anxiety disorder) 08/22/2020 [...] a health care facility 12/04/2011 08/22/2020 Overview: [id number] Chlamydia trachomatis infection of lower genitou rinary site 12/04/2011 03/23/2017 Overview: 12/09 treated--pt to have partner treated Acute pharyngitis 09/27/2010 12/03/2010 Cough 09/27/2010 12/03/2010 Allergic rhinitis 09/27/2010 08/22/2020 Acute sinusitis 09/27/2010 12/03/2010 Dysfunction of eustachian tube 09/27/2010 1 Acute tonsillitis 08/12/2009 12/03/2010 ADVANCE DIRECTIVE INFORMATION 10/13/2005 Overview: Not applicable. documented as of this encounter (statuses as of 02/25/2023) Immunizations Name Administration Dates Next Due Adenovirus [...] No 09/06/2013 documented as of this encounter Progress Notes * Christina Hardy, [facility] - 02/25/2023 12:53 PM EDT Images from the original note were not included. Medication Therapy Disease Management Clinic - Chronic Pain Management Progress Note 02/25/2023 Elenita Jung, identified by name and date of , is a 32 year old female being seen for chronic pain management/education. Patient presents to pain MTM clinic for return visit. Referring Physician: Dr. Centeno Medication Agreement: on file Patient's Pharmacy: [facility] Hunter CHIEF COMPLAINT: buttock pain s/p skin flap for pressure ulcer HPI: Patient presents to pain MTM clinic for return visit. Patient notes she is taking her morphine regularly Notes for a while she was able to not take the oxycodone but notes recently has been asking for percocet more Notes a black ted under the skin on her buttock that comes and goes and notes last week it was thedarkest it has been Otherwise doing well and hasn't needed much this summer Notes her right buttock hurts less than left and ted is on the right buttock, notes does have someincreased sensation with touch Pain described as: sharp at times, dull Sleep: not sleeping at night since she is napping during the day Palliating factors: avoid the area Exacerbating factors: touch Other interventions tried: surgery Worst time of day for pain: evening Imaging: see imaging tab Past Medical History: Diagnosis Date Allergic rhinitis 09/27/2010 Autonomic dysreflexia Bacterial pneumonia Chronic hypotension 08/22/2020 Chronic ulcer of sacral region with fat layer exposed ([facility]) 08/22/2020 Depression 11/02/2012 LOU (generalized anxiety disorder) 08/22/2020 History of cervical fracture 04/06/2012 C6 "Burst" fracture History of recurrent UTI (urinary tract infection) 05/13/2017 History of tracheostomy 06/01/2012 MRSA pneumonia ([facility]) 2012 x 2 Neurogenic bladder Osteomyelitis of right foot ([facility]) 11/25/2018 Persistent insomnia 08/22/2020 Quadriplegia ([facility]) Recurrent major depressive disorder, in full remission ([facility]) 11/02/2012 Spinal injuries C4 spinal puncture, C6 cervical fx Subclavian vein occlusion, right ([facility]) 08/2012 Varicella without complication age 3 Vasomotor instability 08/17/2012 Social History Socioeconomic History Marital status: Single Spouse name: Not on file Number of children: Not on file Years of education: Not on file Highest education level: Not on file Occupational History Comment: 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 Social Needs Financial resource strain: Not on file Food insecurity Worry: Never true Inability: Never true Transportation needs Medical: Not on file Non-medical: Not on file Tobacco Use Smoking status: Former Smoker Packs/day: 0.50 Types: Cigarettes Quit date: 01/07/2012 Years since quittin.2 Smokeless tobacco: Never Used Tobacco comment: no passive smoke Substance and Sexual Activity Alcohol use: Yes Comment: rarely Drug use: No Sexual activity: Yes Partners: Male control/protection: Condom, Pill Comment: 12/09 +chlamydia Lifestyle Physical activity Days per week: Not on file Minutes per session: Not on file Stress: Not on file Relationships Social connections Talks on phone: Not on file Gets together: Not on file Attends zoroastrian service: Not on file Active member of club or organization: Not on file Attends meetings of clubs or organizations: Not on file Relationship status: Not on file Intimate partner violence Fear of current or ex partner: Not on file Emotionally abused: Not on file Physically abused: Not on file Forced sexual activity: Not on file Other Topics Concern Not on file Social History Narrative Not on file Vaping/E-Cigarette Use Vaping/E-Cigarette Use Never User Vaping/E-Cigarette Substances Vaping/E-Cigarette Devices Psych History: Depression Illicit Substance/Rx/Alcohol Abuse: no Opioid Risk Assessment Tool (BRQ): n/a Current Pain Level (02/25/23): stable Pain Level (11/25/22): worse with acute back pain Pain Level (05/20/22): Stable Pain Level (11/13/21): stable Pain Level (08/21/2021): improved since wound healing, stable Pain Level (05/08/21): worse with wounds Pain Level (03/27/2021): better with addition of MS Contin Pain Levels: (12/31/20): worse Pain Level (10/29/20): stable Pain Level (06/21/20): no change Pain Level (04/19/20): slight improvement Pain Level (03/15/20): worse Pain Level (02/09/20): no change Pain Level (01/05/20): worse Pain Level (11/10/19): stable Level (05/16/19):worse Pain Level (03/29/19):stable Pain Level (01/31/19):worse Pain Level (12/20/18):same Pain Level (11/08/18):same Pain Level Initial Visit (09/20/2018): not accessed today Daily MME: 60 (30 from MS contin, 30 from Percocet) PDMP Reviewed (02/25/23): yes Urine Toxicology Screens: none Pill Count: n/a Functional Goal: QOL Past Pain Medications: SA Opioids: n/a LA Opioids: n/a NSAIDS: tylenol Muscle relaxants: flexeril, Antidepressants: topiramate - sleepy Anticonvulsants: Lyrica - not as helpful as gabapentin Current Pain Medications: Morphine Sulfate ER 15 mg Q12H Hydrocodone 10/325 mg [id number] prn Baclofen 30 mg QID prn Gabapentin 900 mg QID Dantrolene 100 mg TID Cymbalta 60 mg BID Lidocaine 5% cream *xarelto, zlopidem, lorazepam, remeron Creatinine Clearance: Creatinine clearance cannot be calculated (Patient's most recent lab result is older than the maximum 180 days allowed.) Creatinine Results: Recent Labs Units 05/26/22 1443 04/03/22 0957 10/17/21 1526 CREATININE - [facility] mg/dL 0.2* 0.2* 0.2* Hepatic Function (ALT): Recent Labs Units 04/03/22 0957 10/17/21 1526 ALT - [facility] U/L 20 17 Comprehensive Metabolic Panel Results: Results for orders placed or performed in visit on 04/03/22 COMPREHENSIVE METABOLIC PANEL Result Value Ref Range BUN 9 6 - 20 mg/dL Creatinine 0.2 (L) 0.5 - 1.0 mg/dL Estimated Glomerular Filtration Rate >90 >=60 mL/min Sodium 140 135 - 146 mmol/L Potassium 4.3 3.5 - 5.1 mmol/L Chloride 104 98 - 107 mmol/L CO2 25 22 - 32 mmol/L Anion Gap 11 7 - 15 mmol/L Glucose 95 70 - 120 mg/dL Albumin 4.5 3.8 - 5.0 g/dL AST 24 10 - 35 U/L Alkaline Phosphatase 91 35 - 130 U/L Bilirubin, Total 0.4 <=1.2 mg/dL Calcium 9.5 8.4 - 10.2 mg/dL Protein 6.3 6.0 - 8.3 g/dL ALT 20 10 - 35 U/L ASSESSMENT: Patient aware MTM is a clinical pharmacist visit, with focus on medication options for current diagnoses referred by Primary Care Provider for review and optimization. Focus of this visit is Medication Optimization. Current concerns: black ted under the skin on right buttock Adherence: Reviewed current regimen, patient is adherent to regimen. Treatment options: continue current options, follow up with pcp if spots worsens Treatment concerns: black spot on right buttock Education provided: n/a I have evaluated the patient for the appropriateness and necessity of opioid pain medications. Patient has been educated towards the benefits and risks of opioid medications, including dependence, addiction, and overdose. Patient is aware of the requirements set out in the medication use agreement,including the need for routine urine drug screening. No red flags for abuse or misuse have been exhibited. PLAN: Continue current medications Follow up with pcp if black spot does not resolve Medication changes: no change Pain Medications: Morphine Sulfate ER 15 mg Q12H Hydrocodone 10/325 mg [id number] prn Baclofen 30 mg QID prn Gabapentin 900 mg QID Dantrolene 100 mg TID Cymbalta 60 mg BID Lidocaine 5% cream *xarelto, zlopidem, lorazepam, remeron Patient verbalized understanding of the plan. Contact clinic with any issues. FOLLOW UP: Return to clinic in 12 weeks 05/27/2023 Christina Hardy [facility] Clinical Pharmacist - Lumber Stacker Medication Therapy Management Clinic 02/25/2023, 12:53 PM documented in this encounter Plan of Treatment Upcoming Encounters Date Type Specialty Care Team Description 05/27/2023 Telemedicine Pharmacy [facility] [place] [facility] [place] [address] 07/02/2023 Hospital Encounter Surgery Noel Benites MD [address] [place] [address] 07/02/2023 Surgery Surgery Noel Benites MD [address] [place] [address] TYMPANOPLASTY WITHOUT OSSICULAR CHAIN RECONSTRUCTION 07/15/2023 Office Visit Otolaryngology Noel Benites MD [address] [place] [address] 08/12/2023 Office Visit Gynecology Obstetrics BackPiper g[facility]mez [facility] [address] Scheduled Procedures Name Priority Associated Diagnoses Date/Ti [...] of sacral region with fat layer exposed (HCC)- Primary Controlled substance agreement signed Encounter for long-term (current) use of other medications Perforation of both tympanic membranes Perforation of [...] the patient have Health Care Power of Top Edge Beveler? No Code Status History Code Status Date Activated Date Inactivated Comments Full Code 09/06/2013 3:12 PM 09/11/2013 7:57 PM This o rder reflects the patients wishes and were consensually agreed upon. Care Teams Mechanic Sound Technician Relationship Specialty Start Date End Date Wade Lacy MD [address] [place] [phone] PCP - General Family Medicine 08/22/20 documented as of this encounter
--- OUTSIDE RECORDS SUMMARY | 2023-04-08 13:28 | External Medical Summary | Summary of Care ---
Author Name Unknown Organization [facility] Address [address] [place] [address] Phone [phone] Care Team Providers Care Foundation Drill Operator Helper Name Role Phone Wade Lacy MD Primary Care Provider [phone] [phone] Reason for Visit * Reason Onset Date Comments Surgery 02/24/2023 Encounter Details Date Type Department Care Team Description 02/24/2023 Telephone Otolaryngology/Head & Neck/Facial Plastic Surgery [address] [place] [address] Noel Benites MD [address] [place] [address] Surgery Allergies Active Allergy Reactions [...] Vancomycin Rash 09/06/2012 Occurred in hospital at [facility] (noted in '13). Unsure if Redmans vs idiopathic rash vs IgE-mediated allergy documented as of this encounter (statuses as of 02/24/2023) Medications Medication Sig Dispensed Refills Start Date [...] for Anxiety. 0 05/16/2019 Active nystatin (NYSTOP) 881295 UNIT/GM powder Apply topically to affected area [...] as of this encounter (statuses as of 02/24/2023) Active Problems Problem Noted Date Encounter for [...] as of this encounter (statuses as of 02/24/2023) Resolved Problems Problem Noted Date Resolved Date Anxiety 06/18/2021 06/18/2021 Calculus of urinary bladder 06/18/202104/01 Pressure injury of left perineal ischial region, unstageable 06/18/2021 06/25/2021 Pressure injury of left buttock, stage 3 022 06/18/2021 Tinea corporis 06/18/2021 02/24/2022 Encounter for central line care 10/09/2020 06/18/2021 PICC [facility]per[facility]) [facility] 10/08/2020 03/05/2021 LOU (generalized anxiety disorder) [...] a health care facility 12/04/2011 08/22/2020 Overview: [id number] Chlamydia trachomatis infection of lower genitou rinary site 12/04/2011 03/23/2017 Overview: 12/09 treated--pt to have partner treated Acute pharyngitis 09/27/2010 12/03/2010 Cough 09/27/2010 12/03/2010 Allergic rhinitis 09/27/2010 08/22/2020 Acute sinusitis 09/27/2010 12/03/2010 Dysfunction of eustachian tube 09/27/2010 1 Acute tonsillitis 08/12/2009 12/03/2010 ADVANCE DIRECTIVE INFORMATION 10/13/2005 Overview: Not applicable. documented as of this encounter (statuses as of 02/24/2023) Immunizations Name Administration Dates Next Due Adenovirus [...] * Telephone Encounter - ARCENIO Lake - 02/24/2023 9:57 AM EDT Offered to move surgery up to 02/26 pt said to short notice and that for short term notice Mondays work best documented in this encounter Plan of Treatment Upcoming Encounters Date Type Specialty Care Team Description 02/25/2023 [address] [address] 07/02/2023 Hospital Encounter Surgery Noel Benites MD [address] [place] [address] 07/02/2023 Surgery Surgery Noel Benites MD [address] [place] [address] TYMPANOPLASTY WITHOUT OSSICULAR CHAIN RECONSTRUCTION 07/15/2023 Office Visit Otolaryngology Noel Benites MD [address] [facility] [place] [address] 08/12/2023 Office Visit Gynecology Obstetrics Backer, TRISTAN Valentine [address] [place] [address] Scheduled Procedures Name Priority Associated Diagnoses Date/Ti [...] patient have Health Care Power of Manager Heart Failure? No Code Status History Code Status Date Activated Date Inactivated Comments Full Code 09/06/2013 3:12 PM 09/11/2013 7:57 PM This o rder reflects the patients wishes and were consensually agreed upon. Care Teams Foundation Drill Operator Helper Relationship Specialty Start Date End Date Wade Lacy MD [address] [place] [address] PCP - General Family Medicine 08/22/20 documented as of this encounter
--- OUTSIDE RECORDS SUMMARY | 2023-04-08 13:28 | External Medical Summary | Summary of Care ---
Author Name Unknown Organization [facility] Address [address] [place] [address] Phone [phone] Care Team Providers Care Supervisor Cook House Name Role Phone Wade Lacy MD Primary Care Provider [phone] [phone] Reason for Visit * Reason Onset Date Comments Medication Refill 03/04/2023 Encounter Details Date Type Department Care Team Description 03/04/2023 Refill Family Practice [facility] [address] [place] [address] Wade Lacy MD [address] [place] [address] Allergies Active Allergy Reactions Severity Noted Date [...] Vancomycin Rash 09/06/2012 Occurred in hospital at [facility] (noted in '13). Unsure if Redmans vs idiopathic rash vs IgE-mediated allergy documented as of this encounter (statuses as of 03/04/2023) Medications Medication Sig Dispensed Refills Start Date [...] for Anxiety. 0 05/16/2019 Active nystatin (NYSTOP) 017332 UNIT/GM powder Apply topically to affected area [...] before bedtime. 60 Tablet 0 02/08/2023 Active Ascorbic Acid 500 MG Oral Tablet ([facility] Vitamin C) TAKE 2 TABLETS BY MOUTH TWICE A DAY FOR 30 DAYS 120 Tablet 11 03/04/2023 Active Ascorbic Acid 500 MG Oral Tablet ([facility]S Vitamin C) TAKE 2 TABLETS BY MOUTH TWICE A DAY FOR 30 DAYS 120 Tablet 11 02/04/2023 03/04/20 Discontinu ed(Refill) documented as of this encounter (statuses as of 03/04/2023) Active Problems Problem Noted Date Encounter for [...] as of this encounter (statuses as of 03/04/2023) Resolved Problems Problem Noted Date Resolved Date Anxiety 06/18/2021 06/18/2021 Calculus of urinary bladder 06/18/202104/01 Pressure injury of left perineal ischial region, unstageable 06/18/2021 06/25/2021 Pressure injury of left buttock, stage 3 022 06/18/2021 Tinea corporis 06/18/2021 02/24/2022 Encounter for central line care 10/09/2020 06/18/2021 PICC (peripherally inserted central catheter) [facility] 10/08/2020 03/05/2021 LOU (generalized anxiety disorder) 08/22/2020 [...] a health care facility 12/04/2011 08/22/2020 Overview: [id number] Chlamydia trachomatis infection of lower genitou rinary site 12/04/2011 03/23/2017 Overview: 12/09 treated--pt to have partner treated Acute pharyngitis 09/27/2010 12/03/2010 Cough 09/27/2010 12/03/2010 Allergic rhinitis 09/27/2010 08/22/2020 Acute sinusitis 09/27/2010 12/03/2010 Dysfunction of eustachian tube 09/27/2010 1 Acute tonsillitis 08/12/2009 12/03/2010 ADVANCE DIRECTIVE INFORMATION 10/13/2005 Overview: Not applicable. documented as of this encounter (statuses as of 03/04/2023) Immunizations Name Administration Dates Next Due Adenovirus [...] encounter Miscellaneous Notes * Telephone Encounter - Fatou Martins MD - 03/04/2023 5:05 PM EDT Signed Prescriptions: Disp Refills Ascorbic Acid 500 MG Oral Tablet ([facility]S Coby*120 Ta*11 Sig: TAKE 2 TABLETS BY MOUTH TWICE A DAY FOR 30 DAYS Authorizing Provider: FATOU MARTINS * Telephone Encounter - Tameka Christine LPN - 03/04/2023 3:27 PM EDTPending Prescriptions: Disp Refills Ascorbic Acid 500 MG Oral Tablet ([facility]S Coby*120 Ta*11 Sig: TAKE 2 TABLETS BY MOUTH TWICE A DAY FOR 30 DAYS * Telephone Encounter - Lay Clinton - 03/04/2023 3:23 PM EDT Did you pend patient's preferred pharmacy and medication before forwarding?yes Pharmacy: [id number] Pending Prescriptions: Disp Refills Ascorbic Acid 500 MG Oral Tablet ([facility]S Vit*120 Ta*11 Sig: TAKE 2 TABLETS BY MOUTH TWICE A DAY FOR 30 DAYS Last Visit: 2022 (in office), 02/24/2022 (telemedicine) Next Visit: Visit date not found If no future appointments scheduled, and last appointment is greater than a year ago, please schedule patient for a follow-up appointment Last date the medication was ordered: 02/04/2023 90 Day Request Is this request for a controlled substance?No [...] ion Hematology Oncology Nurse, Med [address] [place] [address] 05/27/2023 [facility]medicine [facility] [place] [facility] [address] 07/[facility]2023 Hospital Encounter Surgery Noel Benites MD [address] [place] [address] 07/02/2023 Surgery Surgery Noel Benites MD [address] [place] [address] TYMPANOPLASTY WITHOUT OSSICULAR CHAIN RECONSTRUCTION 07/15/2023 Office Visit Otolaryngology Noel Benites MD [address] [place], [place] [id number] 08/12/2023 Office Visit Gynecology Obstetrics Backer, TRISTAN Valentine [address] [place] [address] Scheduled Procedures Name Priority Associated Diagnoses Date/Ti [...] patient have Health Care Power of Chief Clerk? No Code Status History Code Status Date Activated Date Inactivated Comments Full Code 09/06/2013 3:12 PM 09/11/2013 7:57 PM This o rder reflects the patients wishes and were consensually agreed upon. Care Teams Supervisor Cook House Relationship Specialty Start Date End Date Wade Lacy MD [address] [place] [id number] PCP - General Family Medicine 08/22/20 documented as of this encounter
--- OUTSIDE RECORDS SUMMARY | 2023-04-08 13:28 | External Medical Summary | Summary of Care ---
Author Name Unknown Organization [facility] Address [address] [place] [address] Phone [phone] Care Team Providers Care Pricing Lead Name Role Phone Wade Lacy MD Primary Care Provider [phone] Reason for Visit * Reason Onset Date Comments Medication Refill 02/07/2023 Encounter Details Date Type Department Care Team Description 02/07/2023 Refill Family Practice [facility] [address] [place] [address] Wade Lacy MD [address] [facility] [place] [address] Constipation Allergies Active Allergy Reactions Severity Noted Date [...] Vancomycin Rash 09/06/2012 Occurred in hospital at [facility] (noted in '13). Unsure if Redmans [...] for Anxiety. 0 05/16/2019 Active nystatin (NYSTOP) 007624 UNIT/GM powder Apply topically to affected area [...] Osteomyelitis of pelvic region Percutaneous endoscopic gastrostomy [facility] 06/18/2021 Controlled substance agreement signed Persistent insomnia [...] 10/09/2020 06/18/2021 PICC [facility]peripherally [facility] central [facility] 10/08/2020 03/05/2021 LOU (generalized anxiety [...] a health care facility 12/04/2011 08/22/2020 Overview: [id number] Chlamydia trachomatis infection of lower genitou rinary [...] encounter Miscellaneous Notes * Telephone Encounter - Zainab De La Rosa RPh - 02/08/2023 2:05 PM EDT Refused Prescriptions: Disp Refills Docusate Sodium 100 MG Oral Capsule (Colac*180 Ca*3 Sig: Take 1Capsule by mouth in the morning and 1 Capsule before bedtime.Refused By: ZAINAB DE LA ROSA for Refusal: Too soon Ascorbic Acid 500 MG Oral Tablet (CVS Coby*120 Ta*11 Sig: TAKE 2 TABLETS BY MOUTH TWICE A DAY FOR 30 DAYSRefused By: ZAINAB DE LA ROSA for Refusal: Too soonguaiFENesin ER 600 MG Oral Tablet Extended*60 Tab*2 Refused By: ZAINAB DE LA ROSA for Refusal: Too soon documented in this encounter Plan of Treatment Upcoming Encounters Date Type Specialty Care Team Description 02/25/2023 Telemedicine Pharmacy [facility] [place] [address] [place] [address] 07/02/2023 Hospital Encounter Surgery Noel Benites MD [address] [place], [place] [phone] 07/02/2023 Surgery Surgery Noel Benites MD [address] [place] [address] TYMPANOPLASTY WITHOUT OSSICULAR CHAIN RECONSTRUCTION 07/15/2023 Office Visit Otolaryngology Noel Benites MD [address] [place] [address] 08/12/2023 Office Visit Gynecology Obstetrics Backer, TRISTAN Valentine [address] [place] [address] Scheduled Procedures Name Priority Associated Diagnoses Date/Ti [...] as of this encounter Visit Diagnoses Diagnosis Constipation Unspecified constipation Perforation of both tympanic membranes Perforation of [...] the patient have Health Care Power of Young Adult Librarian? No Code Status History Code Status Date Activated Date Inactivated Comments Full Code 09/06/2013 3:12 PM 09/11/2013 7:57 PM This o rder reflects the patients wishes and were consensually agreed upon. Care Teams Pricing Lead Relationship Specialty Start Date End Date Wade Lacy MD [address] [place] [address] PCP - General Family Medicine 08/22/20 documented as of this encounter
--- OUTSIDE RECORDS SUMMARY | 2023-04-08 13:29 | External Medical Summary | Summary of Care ---
Author Name Unknown Organization [facility] Address [address] [place] [address] Phone [phone] Care Team Providers Care Director Advertising Name Role Phone Ally Pineda MD Primary Care Provider [phone] [phone] Reason for Visit * Reason Onset Date Comments Medication Refill 02/04/2023 Encounter Details Date Type Department Care Team Description 02/04/[address] [facility] [address] [place] [address] Tez Jolyl MD [address] [place] [address] Allergies [...] Rash 09/06/2012 Occurred in hospital at [facility] (noted in '13). Unsure if Redmans vs idiopathic rash vs IgE-mediated allergy documented as of this encounter (statuses as of 02/04/2023) Medications Medication Sig Dispensed Refills Start Date [...] for Anxiety. 0 05/16/2019 Active nystatin (NYSTOP) 091836 UNIT/GM powder Apply topically to affected area [...] Pain, Severe. 120 Tablet 0 10/30/2022 Active [facility] Mucus Extended Release 600 MG Oral Tablet Extended Release 12 Hour (guaiFENesin ER) TAKE 1 TABLET BY MOUTH IN THE MORNING AND BEFORE BEDTIME 60 Tablet 2 11/03/2022 Active Methenamine Hippurate 1 GM Oral Tablet (Hiprex) TAKE 1 TABLET BY MOUTH TWICE A DAY 60 Tablet 5 12/02/2022 Active Docusate Sodium 100 MG Oral Capsule (Colace)Indication s:Constipation TAKE 1 CAPSULE BY MOUTH TWICE A DAY 180 Capsule 3 12/07/2022 Active Morphine Sulfate ER 15 MG Oral Tablet Extended Release (MS Contin)Indications :Chronic ulcer of sacral region with fat layer exposed (HCC) Take 1 Tablet by mouth in the morning and 1 Tablet before bedtime. 60 Tablet 0 01/11/2023 Active Ascorbic Acid 500 MG Oral Tablet (CVS Vitamin C) TAKE 2 TABLETS BY MOUTH TWICE A DAY FOR 30 DAYS 120 Tablet 11 02/04/2023 Active Ascorbic Acid 500 MG Oral Tablet (CVS Vitamin C) TAKE 2 TABLETS BY MOUTH TWICE A DAY FOR 30 DAYS 120 Tablet 11 12/02/2022 02/05/20 Discontinu ed(Refill) documented as of this encounter (statuses as of 02/04/2023) Active Problems Problem Noted Date Encounter for [...] as of this encounter (statuses as of 02/04/2023) Resolved Problems Problem Noted Date Resolved Date Anxiety 06/18/2021 06/18/2021 Calculus of urinary bladder 06/18/202104/01 Pressure injury of left perineal ischial region, unstageable 06/18/2021 06/25/2021 Pressure injury of left buttock, stage 3 022 06/18/2021 Tinea corporis 06/18/2021 02/24/2022 Encounter for central line care 10/09/2020 06/18/2021 PICC (peripherally inserted central catheter) [facility] 10/08/2020 03/05/2021 LOU (generalized anxiety disorder) [...] a health care facility 12/04/2011 08/22/2020 Overview: [id number] Chlamydia trachomatis infection of lower genitou rinary site 12/04/2011 03/23/2017 Overview: 12/09 treated--pt to have partner treated Acute pharyngitis 09/27/2010 12/03/2010 Cough 09/27/2010 12/03/2010 Allergic rhinitis 09/27/2010 08/22/2020 Acute sinusitis 09/27/2010 12/03/2010 Dysfunction of eustachian tube 09/27/2010 1 Acute tonsillitis 08/12/2009 12/03/2010 ADVANCE DIRECTIVE INFORMATION 10/13/2005 Overview: Not applicable. documented as of this encounter (statuses as of 02/04/2023) Immunizations Name Administration Dates Next Due Adenovirus [...] Telephone Encounter - Ally Pineda MD - 02/04/2023 5:38 PM EDTSigned Prescriptions: Disp Refills Ascorbic Acid 500 MG Oral Tablet (CVS Coby*120 Ta*11 Sig: TAKE 2 TABLETS BY MOUTH TWICE A DAY FOR 30 DAYS Authorizing Provider: ALLY PINEDA * Telephone Encounter - Heidi Hogan LPN - 02/04/2023 2:53 PM EDTPending Prescriptions: Disp Refills Ascorbic Acid 500 MG Oral Tablet (CVS Coby*120 Ta*11 Sig: TAKE 2 TABLETS BY MOUTH TWICE A DAY FOR 30 DAYS * Telephone Encounter - Angélica Delacruz Ken - 02/04/2023 2:34 PM EDT Did you pend patient's preferred pharmacy and medication before forwarding?yes Pharmacy: [id number] [place] [address] Pending Prescriptions: Disp Refills Ascorbic Acid 500 [...] appointment Last date the medication was ordered: 7.5. Is this request for a controlled substance?No 90 day refill request Urine Drug Screen:No results found. However, due [...] Type Specialty Care Team Description 02/25/2023 Telemedicine [facility] [place] [facility] [place] [address] 07/02/2023 Hospital Encounter Surgery Noel Benites MD [address] [place] [address] 07/02/2023 Surgery Surgery Noel Benites MD [address] [place] [address] TYMPANOPLASTY WITHOUT OSSICULAR CHAIN RECONSTRUCTION 07/15/2023 Office Visit Otolaryngology Noel Benites MD [address] [place] [address] 08/12/2023 Office Visit Gynecology Obstetrics Backer, TRISTAN Valentine [address] [place] [address] Scheduled Procedures Name Priority Associated Diagnoses Date/Ti [...] the patient have Health Care Power of Pressure Steamer Tender? No Code Status History Code Status Date Activated Date Inactivated Comments Full Code 09/06/2013 3:12 PM 09/11/2013 7:57 PM This o rder reflects the patients wishes and were consensually agreed upon. Care Teams Director Advertising Relationship Specialty Start Date End Date Ally Pineda MD [address] [place] [address] PCP - General Family Medicine 08/22/20 documented as of this encounter
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
--- OUTSIDE RECORDS SUMMARY | 2023-04-08 13:29 | External Medical Summary | Summary of Care ---
Author Name Unknown Organization [facility] Address [address] [address] Phone [phone] Care Team Providers Care [employer] Superintendent [employer] Name Role Phone Ally Pineda MD Primary Care Provider [phone] [phone] Reason for Visit * Reason Comments eRx-Medication Refill Encounter Details Date Type Department Care Team Description 02/05/2023 Refill Family Practice [facility] [address] [place] [address] Ally Pineda MD [address] [facility] [place] [address] Allergies Active Allergy Reactions Severity Noted [...] Vancomycin Rash 09/06/2012 Occurred in hospital at [facility] (noted in '13). Unsure if Redmans vs idiopathic rash vs IgE-mediated allergy documented as of this encounter (statuses as of 02/05/2023) Medications Medication Sig Dispensed Refills Start Date [...] for Anxiety. 0 9 Active nystatin (NYSTOP) 647886 UNIT/GM powder Apply topically to affected area [...] TWICE A DAY 180 Capsule 3 2 Active Famotidine 20 MG Oral Tablet (Pepcid)Indication [...] before bedtime. 360 Tablet 5 3 Active Gabapentin 600 MG Oral Tablet (Neurontin) TAKE 1 TABLET BY MOUTH FOUR TIMES A DAY 360 Tablet 1 3 Active Xarelto 20 MG Oral Tablet (Rivaroxaban)Indic ations:Anticoagula tion adequate TAKE 1 TABLET BY MOUTH DAILY WITH DINNER FOR BLOOD CLOT PREVENTION 90 Tablet 2 3 Active Gabapentin 300 MG Oral Capsule (Neurontin) TAKE 1 CAPSULE BY MOUTH FOUR TIMES A DAY 360 Capsule 1 3 Active ARIPiprazole 5 MG Oral Tablet Take 1 Tablet by mouth in the morning. 0 Active HYDROcodone-Acetam inophen 10-325 MG Oral TabletIndications: Neuropathic pain,Chronic ulcer of sacral region with fat layer exposed (HCC) Take 1 Tablet by mouth every 6 hours as needed for Pain, Severe. 120 Tablet 0 3 Active Methenamine Hippurate 1 GM Oral Tablet (Hiprex) TAKE 1 TABLET BY MOUTH TWICE A DAY 60 Tablet 5 3 Active Docusate Sodium 100 MG Oral Capsule (Colace)Indication s:Constipation TAKE 1 CAPSULE BY MOUTH TWICE A DAY 180 Capsule 3 3 Active Morphine Sulfate ER 15 MG Oral Tablet Extended Release (MS Contin)Indications :Chronic ulcer of sacral region with fat layer exposed (HCC) Take 1 Tablet by mouth in the morning and 1 Tablet before bedtime. 60 Tablet 0 3 Active Ascorbic Acid 500 MG Oral Tablet ([facility] Vitamin C) TAKE 2 TABLETS BY MOUTH TWICE A DAY FOR 30 DAYS 120 Tablet 11 3 Active [facility] Mucus Extended Release 600 MG Oral Tablet Extended Release 12 Hour (guaiFENesin ER) TAKE 1 TABLET BY MOUTH IN THE MORNING AND BEFORE BEDTIME 60 Tablet 2 3 Active [facility]S Mucus Extended Release 600 MG Oral Tablet Extended Release 12 Hour (guaiFENesin ER) TAKE 1 TABLET BY MOUTH IN THE MORNING AND BEFORE BEDTIME 60 Tablet 2 3 02/06/20 23 Discontinued documented as of this encounter (statuses as of 02/05/2023) Active Problems Problem Noted Date Encounter for adjustment and management of vascular access device 05/28/2022 Depression with anxiety 04/22/2022 Suprapubic catheter 04/22/2022 Thrombocytopenia 11/17/2021 Autonomic dysfunction 06/18/2021 Osteomyelitis of pelvic region 2 Percutaneous endoscopic gastrostomy stat us 06/18/2021 Controlled substance agreement signed Persistent insomnia 08/22/2020 Chronic ulcer of sacral region with fat layer exposed 08/22/2020 Quadriplegia, C1-C4 complete 04/08/2020 Port-A-Cath in place 03/28/2018 History of recurrent UTI (urinary tract infection) 05/13/2017 Neuropathic pain 11/23/2015 Spastic neurogenic bladder 11/25/2012 documented as of this encounter (statuses as of 02/05/2023) Resolved Problems Problem Noted Date Resolved Date [...] a health care facility 12/04/2011 08/22/2020 Overview: [id number] Chlamydia trachomatis infection of lower genitou rinary site 12/04/2011 03/23/2017 Overview: 12/09 treated--pt to have partner treated Acute pharyngitis 09/27/2010 12/03/2010 Cough 09/27/2010 12/03/2010 Allergic rhinitis 09/27/2010 08/22/2020 Acute sinusitis 09/27/2010 12/03/2010 Dysfunction of eustachian tube 09/27/2010 1 Acute tonsillitis 08/12/2009 12/03/2010 ADVANCE DIRECTIVE INFORMATION 10/13/2005 Overview: Not applicable. documented as of this encounter (statuses as of 02/05/2023) Immunizations Name Administration Dates Next Due Adenovirus [...] Telephone Encounter - Ally Pineda MD - 02/05/2023 4:43 PM EDTSigned Prescriptions: Disp Refills [facility] Mucus Extended Release 600 MG Oral Tab*60 Tab*2 Sig: TAKE 1 TABLET BY MOUTH IN THE MORNING AND BEFORE BEDTIME Authorizing Provider: ALLY PINEDA * Telephone Encounter - Tameka Christine LPN - 02/05/2023 4:43 PM EDTPending Prescriptions: Disp Refills [facility] Mucus Extended Release 600 MG Oral Tab*60 Tab*2 Sig: TAKE 1 TABLET BY MOUTH IN THE MORNING AND BEFORE BEDTIME * Telephone Encounter - Tameka Christine LPN - 02/05/2023 4:42 PM EDT Did you pend patient's preferred pharmacy and medication before forwarding?yes Pharmacy: [id number] [address] [facility] Pending Prescriptions: Disp Refills [facility] Mucus Extended Release 600 MG Oral Ta*60 Tab*2 Sig: TAKE 1 TABLET BY MOUTH IN THE MORNING AND BEFORE BEDTIME Last Visit: 2022 (in office), 02/24/2022 (telemedicine) Next Visit: Visit date not found If no future appointments scheduled, and last appointment is greater than a year ago, please schedule patient for a follow-up appointment Last date the medication was ordered: 11/03/2022 Is this request for a controlled substance?No [...] * Telephone Encounter - Emerson Johns - 02/05/2023 4:15 PM EDTPending Prescriptions: Disp Refills [facility] Mucus Extended Release 600 MG Oral Tab*60 Tab*2 Sig: TAKE 1TABLET BY MOUTH IN THE MORNING AND BEFORE BEDTIME documented in this encounter Plan of Treatment Upcoming Encounters Date Type Specialty Care Team Description 02/25/2023 Telemedicine [facility] [place] [address] [place] [address] 07/02/2023 Hospital Encounter Surgery Noel Benites MD [address] [place], [place] [id number] 07/02/2023 Surgery Surgery Noel Benites MD [address] [place], [place] [id number] TYMPANOPLASTY WITHOUT OSSICULAR CHAIN RECONSTRUCTION 07/15/2023 Office Visit Otolaryngology Noel Benites MD [address] [place], [place] [phone] 08/12/2023 Office Visit Gynecology Obstetrics BackPiper gómez CRNP [address] [place] [address] Scheduled Procedures Name Priority Associated Diagnoses Date/Ti [...] the patient have Health Care Power of Front Counter Attendant? No Code Status History Code Status Date Activated Date Inactivated Comments Full Code 09/06/2013 3:12 PM 09/11/2013 7:57 PM This o rder reflects the patients wishes and were consensually agreed upon. Care Teams [employer] Relationship Specialty Start Date End Date Ally Pineda MD [address] [place] [address] PCP - General Family Medicine 08/22/20 documented as of this encounter
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
--- OUTSIDE RECORDS SUMMARY | 2023-04-08 13:30 | External Medical Summary | Summary of Care ---
Author Name Unknown Organization [facility] Address [address] [place] [address] Phone [phone] Care Team Providers Care Anesthesiology Crna Name Role Phone Ally Pineda MD Primary Care Provider [phone] Reason for Visit * Reason Onset Date Comments Medication Refill 01/10/2023 Encounter Details Date Type Department Care Team Description 01/10/2023 Refill Pharmacy, [facility] [address] [place] [id number] Ally Pineda MD [address] [facility] [place] [address] Chronic ulcer of sacral region with fat [...] for Anxiety. 0 05/16/2019 Active nystatin (NYSTOP) 417147 UNIT/GM powder Apply topically to affected area [...] before bedtime. 60 Tablet 0 01/11/2023 Active Morphine Sulfate ER 15 MG Oral Tablet Extended Release (MS Contin)Indications :Chronic ulcer of sacral region with fat layer exposed (HCC) Take 1 Tablet by mouth in the morning and 1 Tablet before bedtime. 60 Tablet 0 12/07/2022 01/11/20 Discontinu ed(Refill) documented as of this encounter [...] 06/18/2021 PICC (peripherally inserted central catheter) [facility] 10/08/2020 03/05/2021 LOU (generalized anxiety disorder) 08/22/2020 [...] a health care facility 12/04/2011 08/22/2020 Overview: [id number] Chlamydia trachomatis infection of lower genitou rinary [...] Telephone Encounter - Ally Pineda MD - 01/11/2023 8:10 AM EDTSigned Prescriptions: Disp Refills Morphine Sulfate ER 15 MG Oral Tablet Exte*60 Tab*0 Sig: Take 1 Tablet by mouth in the morning and 1 Tablet before bedtime. Authorizing Provider: ALLY PINEDA * Telephone Encounter - Lukas Or[facility] - 01/11/2023 8:07 AM EDTPending Prescriptions: Disp Refills Morphine Sulfate ER 15 MG Oral Tablet Exte*60 Tab*0 Sig: Take 1Tablet by mouth in the morning and 1 Tablet before bedtime. documented in this encounter Plan of Treatment Upcoming Encounters Date Type Specialty Care Team Description 01/11/2023 Telemedicine Nutrition Services Jenelle Swenson, RDN [address] [place] [address] [place] [address] 02/11/2023 Office Visit Orthopedic Surgery Michael Pal MD [address] [address] 02/25/2023 Telemedicine Pharmacy [facility] [place] [address] [place] [address] 07/02/2023 Hospital Encounter Surgery Noel Benites MD [address] [place] [address] 07/02/2023 Surgery Surgery Noel Benites MD [address], [place] [id number] TYMPANOPLASTY WITHOUT OSSICULAR CHAIN RECONSTRUCTION 07/15/2023 Office Visit Otolaryngology Noel Benites MD [address] [place] [address] 08/12/2023 Office Visit Gynecology Obstetrics BackerPiper CR[facility] [place] [id number] Scheduled Procedures Name Priority Associated Diagnoses Date/Ti [...] sacral region with fat layer exposed (HCC) Weight gain- Primary Abnormal weight gain Perforation [...] the patient have Health Care Power of Dewer? No Code Status History Code Status Date Activated Date Inactivated Comments Full Code 09/06/2013 3:12 PM 09/11/2013 7:57 PM This o rder reflects the patients wishes and were consensually agreed upon. Care Teams Anesthesiology Crna Relationship Specialty Start Date End Date Ally Pineda MD [address] [place] [address] PCP - General Family Medicine 08/22/20 documented as of this encounter
--- OUTSIDE RECORDS SUMMARY | 2023-04-08 13:31 | External Medical Summary | Summary of Care ---
Author Name Unknown Organization [facility] Address [address] [place] [address] Phone [phone] Care Team Providers Care Junior Art Director Name Role Phone Ally Pineda MD Primary Care Provider [phone] Reason for Visit * Reason Onset Date Comments Medication Refill 12/06/2022 Encounter Details Date Type Department Care Team Description 12/06/2022 Refill Pharmacy, [facility] [address] [place] [address] Ally Pineda MD [address] [facility] [place] [address] Chronic ulcer of sacral region with fat [...] Vancomycin Rash 09/06/2012 Occurred in hospital at [facility] (noted in '13). Unsure if Redmans vs idiopathic rash vs IgE-mediated allergy documented as of this encounter (statuses as of 12/07/2022) Medications Medication Sig Dispensed Refills Start Date [...] for Anxiety. 0 05/16/2019 Active nystatin (NYSTOP) 698173 UNIT/GM powder Apply topically to affected area [...] A DAY 180 Capsule 3 01/09/2022 Active Docusate Sodium 100 MG Oral Capsule [...] 30 DAYS 120 Tablet 11 12/02/2022 Active Morphine Sulfate ER 15 MG Oral Tablet Extended Release (MS Contin)Indications :Chronic ulcer of sacral region with fat layer exposed (HCC) Take 1 Tablet by mouth in the morning and 1 Tablet before bedtime. 60 Tablet 0 12/07/2022 Active Morphine Sulfate ER 15 MG Oral Tablet Extended Release (MS Contin)Indications :Chronic ulcer of sacral region with fat layer exposed (HCC) Take 1 Tablet by mouth in the morning and 1 Tablet before bedtime. 60 Tablet 0 11/09/2022 12/07/19 Discontinu ed(Refill) documented as of this encounter (statuses as of 12/07/2022) Active Problems Problem Noted Date Encounter for [...] as of this encounter (statuses as of 12/07/2022) Resolved Problems Problem Noted Date Resolved Date Anxiety 06/18/2021 06/18/2021 Calculus of urinary bladder 06/18/2021 11/2 07/2021 Pressure injury of left perineal ischial region, unstageable 06/18/2021 06/25/2021 Pressure injury of left buttock, stage 3 022 06/18/2021 Tinea corporis 06/18/2021 02/24/2022 Encounter for central line care 10/09/2020 06/18/2021 PICC (peripherally inserted central catheter) [facility] 10/08/2020 03/05/2021 LOU (generalized [...] a health care facility 12/04/2011 08/22/2020 Overview: [id number] Chlamydia trachomatis infection of lower genitou rinary site 12/04/2011 03/23/2017 Overview: 12/09 treated--pt to have partner treated Acute pharyngitis 09/27/2010 12/03/2010 Cough 09/27/2010 12/03/2010 Allergic rhinitis 09/27/2010 08/22/2020 Acute sinusitis 09/27/2010 12/03/2010 Dysfunction of eustachian tube 09/27/2010 1 Acute tonsillitis 08/12/2009 12/03/2010 ADVANCE DIRECTIVE INFORMATION 10/13/2005 Overview: Not applicable. documented as of this encounter (statuses as of 12/07/2022) Immunizations Name Administration Dates Next Due Adenovirus [...] Telephone Encounter - Ally Pineda MD - 12/07/2022 8:32 AM EDTSigned Prescriptions: Disp Refills Morphine Sulfate ER 15 MG Oral Tablet Exte*60 Tab*0 Sig: Take 1 Tablet by mouth in the morning and 1 Tablet before bedtime. Authorizing Provider: ALLY PINEDA * Telephone Encounter - [facility] - 12/07/2022 8:24 AM EDT Pending Prescriptions: Disp Refills Morphine Sulfate ER 15 MG Oral Tablet Exte*60 Tab*0 Sig: Take 1 Tablet by mouth in the morning and 1 Tablet before bedtime. Electronically signed by [facility] at 12/07/2022 8:24 AM EDT documented in this encounter Plan of Treatment Upcoming Encounters Date Type Specialty Care Team Description 12/29/2022 Immunization/Inject ion Hematology Oncology Nurse, Med [address] [place] [address] 12/29/2022 Office Visit Pain Medicine [facility] [place] [address] 01/11/2023 Telemedicine Nutrition Services Jenelle Swenson, RDN [address] [place] [address] [place] [address] 02/11/2023 Office Visit Orthopedic Surgery Michael Pal MD [address] [place] [address] 02/25/2023 Telemedicine Pharmacy [facility] [place] [address] [facility] [address] 07/02/2023 Hospital Encounter Surgery Noel Benites MD [address] [facility] [place] [id number] 07/02/2023 Surgery Surgery Noel Benites MD [address] [facility] [place] [id number] TYMPANOPLASTY WITHOUT OSSICULAR CHAIN RECONSTRUCTION 07/15/2023 Office Visit Otolaryngology Noel Benites MD [address] [facility] [address] 08/12/2023 Office Visit Gynecology Obstetrics Backer, PiperTRISTAN Graf [address] [place] [address] Scheduled Procedures Name Priority Associated Diagnoses Date/Ti me TYMPANOPLASTY WITHOUT OSSICULAR CHAIN RECONSTRUCTION Perforation of both tympanic membranes Conductive hearing loss, bilateral 07/02/2023 7:30 AM EST Health Maintenance Due Date Last Done Comments Hepatitis C Screening 2010 DTaP,Tdap,and Td Vaccines (7 - Td or Tdap) 04/17/2021 04/17/2011, 12/23/2006, 11/22/1997, Additional history exists COVID-19 Vaccine (4 - Booster for Pfizer series) 06/05/2021 04/10/2021, 10/07/2020, 09/16/2020 Depression Screening, Annual for Pts 12 and Over 08/23/2021 08/23/2020 Influenza Vaccine (FLU shot) (#1) 2023 04/22/2022, 03/05/2021, 03/05/2021, Additional history exists Pap Smear 08/28/2025 08/28/2020 GARDASIL-HPV IMMUNIZATION SERIES Completed 07/28/2007, 03/31/2007, [...] the patient have Health Care Power of Carver Hand? No Code Status History Code Status Date Activated Date Inactivated Comments Full Code 09/06/2013 3:12 PM 09/11/2013 7:57 PM This o rder reflects the patients wishes and were consensually agreed upon. Care Teams Junior Art Director Relationship Specialty Start Date End Date Ally Pineda MD [address] [place] [address] PCP - General Family Medicine 08/22/20 documented as of this encounter
--- OUTSIDE RECORDS SUMMARY | 2023-04-08 13:31 | External Medical Summary | Summary of Care ---
Author Name Unknown Organization [facility] Address [address] [place] [address] Phone [phone] Care Team Providers Care Wet Mixer Name Role Phone Wade Lacy MD Primary Care Provider [phone] Reason for Visit * Reason Comments Dosage Adjustment In Person (Anticoag Cl inic) Pain Encounter Details Date Type Department Care Team Description 11/25/2022 Telemedicine Pharmacy, [facility] [address] [facility] [place] [address] [facility] [address] Chronic ulcer of sacral region with fat [...] Vancomycin Rash 09/06/2012 Occurred in hospital at [facility] (noted in '13). Unsure if Redmans vs idiopathic rash vs IgE-mediated allergy documented as of this encounter (statuses as of 11/25/2022) Medications Medication Sig Dispensed Refills Start Date [...] for Anxiety. 0 05/16/2019 Active nystatin (NYSTOP) 385077 UNIT/GM powder Apply topically to affected area [...] MOVEMENT DIRECTED 5 Each 5 04/06/2022 Active Methenamine Hippurate 1 GM Oral Tablet (Hiprex) TAKE 1 TABLET BY MOUTH TWICE A DAY 60 Tablet 5 06/08/2022 Active Baclofen 20 MG Oral Tablet Take [...] by mouth in the morning. 0 Active Ascorbic Acid 500 MG Oral Tablet ([facility] Vitamin C) TAKE 2 TABLETS BY MOUTH TWICE A DAY FOR 30 DAYS 120 Tablet 11 10/05/2022 Active HYDROcodone-Acetami nophen 10-325 MG Oral TabletIndications:N [...] BEFORE BEDTIME 60 Tablet 2 11/03/2022 Active Morphine Sulfate ER 15 MG Oral Tablet Extended Release (MS Contin)Indications: Chronic ulcer of sacral region with fat layer exposed (HCC) Take 1 Tablet by mouth in the morning and 1 Tablet before bedtime. 60 Tablet 0 11/09/2022 Active documented as of this encounter (statuses as of 11/25/2022) Active Problems Problem Noted Date Encounter for adjustment and management of vascular access device 05/28/2022 Depression with anxiety 04/22/2022 Suprapubic catheter 04/22/2022 Thrombocytopenia 11/17/2021 Autonomic dysfunction 06/18/2021 Osteomyelitis of pelvic region Percutaneous endoscopic gastrostomy [facility] 06/18/2021 Controlled substance agreement signed Persistent insomnia 08/22/2020 Chronic ulcer of sacral region with fat layer exposed 08/22/2020 Quadriplegia, C1-C4 complete 04/08/2020 Port-A-Cath in place 03/28/2018 History of recurrent UTI (urinary tract infection) 05/13/2017 Neuropathic pain 11/23/2015 Spastic neurogenic bladder 11/25/2012 documented as of this encounter (statuses as of 11/25/2022) Resolved Problems Problem Noted Date Resolved Date Anxiety 06/18/2021 06/18/2021 Calculus of urinary bladder 06/18/202104/01 Pressure injury of left perineal ischial region, unstageable 06/18/2021 06/25/2021 Pressure injury of left buttock, stage 3 022 06/18/2021 Tinea corporis 06/18/2021 02/24/2022 Encounter for central line care 10/09/2020 06/18/2021 PICC (peripherally inserted central catheter) [facility] 10/08/2020 03/05/2021 LOU (generalized anxiety disorder) [...] a health care facility 12/04/2011 08/22/2020 Overview: [id number] Chlamydia trachomatis infection of lower genitou rinary site 12/04/2011 03/23/2017 Overview: 12/09 treated--pt to have partner treated Acute pharyngitis 09/27/2010 12/03/2010 Cough 09/27/2010 12/03/2010 Allergic rhinitis 09/27/2010 08/22/2020 Acute sinusitis 09/27/2010 12/03/2010 Dysfunction of eustachian tube 09/27/2010 1 Acute tonsillitis 08/12/2009 12/03/2010 ADVANCE DIRECTIVE INFORMATION 10/13/2005 Overview: Not applicable. documented as of this encounter (statuses as of 11/25/2022) Immunizations Name Administration Dates Next Due Adenovirus Type 4 And Type 7 Vacc, Live Oral 04/17/2011 DTP/HIB (Tetramune) 05/28/1993,03/25/1993,1992 DTaP - Dipth/Tet/Acell Pertussis 11/22/1997 H1N1 2009 Influenza, IM 05/07/2009 HPV Vaccine, 4-Valent 07/28/2007,03/31/2007,12/30 HepA Inact/HepB Recomb>=18yrs old 06/16/2011 Hepatitis B Vaccine 05/28/1993,01/30/1993,1992 Hepatitis B, 20+ yrs 05/28/1993,01/30/1993,11/21 IPV - Polio Virus Vaccine (Inact) 04/17/2011,02/2002 MMR - Measles/Mumps/Rubella Vaccine 11/22/1997,1 Meningococcal Conjugate Vacc ine (Menactra/Menveo) 12/23/2006 Meningococcal MCV4P Conjugat e Vaccine (Menactra) 04/17/2011,12/23/2006 OPV - Polio Virus Vaccine (Oral) 11/22/1997,03/01,01/30/1993 PPD 11/18/2010,03/06/1994,1993 Pneumococcal Polysaccharide PPV23 (Pneumovax) 01/08/2012 Rabies Vaccine [...] this encounter Progress Notes * Christina Hardy, [facility] - 11/25/2022 12:56 PM EDT Images from the original note were not included. Patient location: HOME. I was in a hospital or clinic location. After connecting through televideo,patient was verified with two unique identifiers. Patient (or authorized legal medical service representative) was then informed that this was a Telemedicine visit and being conducted confidentially over secure lines. Methods to assure confidentiality were taken. Patient acknowledged consent and understanding of pr ivacy and security of the Telemedicine visit. The patient agreed to participate. Medication Therapy Disease Management Clinic - Chronic Pain Management Progress Note 11/25/2022 Elenita Jung, identified by name and date of , is a 32 year old female being seen for chronic pain management/education. Patient presents to pain [place] clinic for return visit. Referring Physician: Dr. Centeno Medication Agreement: on file Patient's Pharmacy: [facility] CHIEF COMPLAINT: buttock pain s/p skin flap for pressure ulcer HPI: Patient presents to pain MT clinic for return visit. Notes she was just in the ER last week with back pain, collapsed lung but no finding for back pain Patient notes the pain worsened and she was instructed to reach out to pcp to be seen Was seen on 11/20 by Jermain who referred her to pain management for her back pain Notes Jermain Manning was concerned with her collapsed lung, which patient is not concerned about due tolack of symptoms Notes she has an appt with pain management on 12/[address] Ayala and also on a cancellation list Notes back pain continues to bother her, patient notes to taking more of her pain medication due tothe back pain and notes this is the only thing that helps Notes hasn't taken her pain medication the last 2 mornings and has been alright Notes the pain is in one small marianne to quarter sized area of pain on her vertebra around the bra strap area, does not extend to either side Notes the pain is sharp and stinging Notes it can resolve with position, notes laying down can help but with air mattress if that place inflates it returns the pain Pain described as: sharp at times, dull [...] sacral region with fat layer exposed (HCC) 08/22/2020 Depression 11/02/2012 LOU (generalized anxiety disorder) 08/22/2020 History of cervical fracture 04/06/2012 C6 "Burst" fracture History of recurrent UTI (urinary tract infection) 05/13/2017 History of tracheostomy 06/01/2012 MRSA pneumonia ([facility]) 2012 x 2 Neurogenic bladder Osteomyelitis of right foot ([facility]) 11/25/2018 Persistent insomnia 08/22/2020 Quadriplegia ([facility]) Recurrent major depressive disorder, in full remission ([facility]) 11/02/2012 Spinal injuries C4 spinal puncture, C6 cervical fx Subclavian vein occlusion, right ([facility]) 08/2012 Varicella without complication age 3 Vasomotor [...] file Gets together: Not on file Attends hoahaoism service: Not on file Active member of [...] Assessment Tool (BRQ): n/a Current Pain Level (11/25/22): worse with acute back [...] MS contin, 30 from Percocet) PDMP Reviewed (05/20/22): yes Urine Toxicology Screens: none Pill Count: n/a Functional Goal: QOL Past Pain Medications: SA Opioids: n/a LA Opioids: n/a NSAIDS: tylenol Muscle relaxants: flexeril, Antidepressants: topiramate - sleepy Anticonvulsants: Lyrica - not as helpful as gabapentin Current Pain Medications: Morphine Sulfate ER 15 mg Q12H Hydrocodone 10/325 mg [id number] prn Baclofen 30 mg QID prn Gabapentin [...] 10/17/21 1526 ALT - [facility] U/L 20 Comprehensive Metabolic Panel Results: Results for orders [...] this visit is Medication Optimization. Current concerns: new onset back pain Adherence: Reviewed current regimen, patient is adherent to regimen. Treatment options: continue current treatment, follow up with interventional pain for diagnosis of back pain and clearance for PT, contact MTM for additional pain or flares Treatment concerns: new acute pain Education provided: discussed pain in detail and treatment plan I have evaluated the patient for the appropriateness and necessity of opioid pain medications. Patient has been educated towards the benefits and risks of opioid medications, including dependence, addiction, and overdose. Patient is aware of the requirements set out in the medication use agreement,including the need for routine urine drug screening. No red flags for abuse or misuse have been exhibited. PLAN: 1. Continue current medication 2. Contact MTM for treatment plan if flare of pain Medication changes: no change Pain Medications: Morphine Sulfate ER 15 mg Q12H Hydrocodone 10/325 mg [id number] prn Baclofen 30 mg QID prn Gabapentin 900 mg QID Dantrolene 100 mg TID Cymbalta 60 mg BID Lidocaine 5% cream *xarelto, zlopidem, lorazepam, remeron Patient verbalized understanding of the plan. Contact clinic with any issues. FOLLOW UP: Return to clinic in 12 weeks 02/25/2023 Christina Hardy RPh Clinical Pharmacist - Electronics Engineering Manager Medication Therapy Management Clinic 11/25/2022, 12:57 PM documented in this encounter Plan of Treatment Upcoming Encounters Date Type Specialty Care Team Description 12/29/2022 Immunization/Inject ion Hematology Oncology Nurse, Med [address] [place] [address] 12/29/2022 Office Visit Pain Medicine CousinKurt reeves DO [address] [place] [address] 01/11/2023 Telemedicine Nutrition Services Jenelle Swenson, RDN [address] [place] [address] 02/25/2023 Telemedicine Pharmacy [facility] [place] [address] [place] [address] 07/02/2023 Hospital Encounter Surgery Noel Benites MD [address] [place] [address] 07/02/2023 Surgery Surgery Noel Benites MD [address], [place] [id number] TYMPANOPLASTY WITHOUT OSSICULAR CHAIN RECONSTRUCTION 07/15/2023 Office Visit Otolaryngology Noel Benites MD [address] [facility] [place] [address] 08/12/2023 Office Visit Gynecology Obstetrics Backer, TRISTAN Valentine [address] [place] [address] Scheduled Procedures Name Priority Associated Diagnoses Date/Ti [...] for Pts 12 and Over 08/23/2021 08/23/2020 Pap Smear 08/28/2025 08/28/2020 GARDASIL-HPV IMMUNIZATION SERIES Completed 07/28/2007, 03/31/2007, 01/19/2007 MENINGOCOCCAL (MENACTRA/MENVEO) Completed 04/17/2011, 12/23/2006, 12/23/2006 Hepatitis B Completed 06/16/2011, 05/01, 05/28/1993, Additional history exists Pneumococcal Vaccine: Pediatrics (0 to 5 Years) and At-Risk Patients (6 to 64 Years) Aged Out 01/08/2012 No longer eligible based on patient's age to complete this topic Influenza Vaccine (FLU shot) Completed , 03/05/2021, 03/05/2021, Additional history exists documented as of this encounter Medical Devices [...] the patient have Health Care Power of Speech Scientist? No Code Status History Code Status Date Activated Date Inactivated Comments Full Code 09/06/2013 3:12 PM 09/11/2013 7:57 PM This o rder reflects the patients wishes and were consensually agreed upon. Care Teams Wet Mixer Relationship Specialty Start Date End Date Wade Lacy MD [address] [place] [address] PCP - General Family Medicine 08/22/20 documented as of this encounter
--- OUTSIDE RECORDS SUMMARY | 2023-04-08 13:31 | External Medical Summary | Summary of Care ---
Author Name Unknown Organization [facility] Address [address] [place] [address] Phone [phone] Care Team Providers Care Field Examiner Name Role Phone Wade Lacy MD Primary Care Provider +1 [phone] Encounter Details Date Type Department Care Team Description 12/21/2022 Orders Only Outcomes Research Department [address] [place] [address] Dinora Liu CHRA [facility] Research Other*[id number] Allergies Active Allergy Reactions Severity Noted Date [...] as of this encounter (statuses as of 12/21/2022) Medications Medication Sig Dispensed Refills Start Date [...] for Anxiety. 0 05/16/2019 Active nystatin (NYSTOP) 223017 UNIT/GM powder Apply topically to affected area [...] as of this encounter (statuses as of 12/21/2022) Active Problems Problem Noted Date Encounter for [...] as of this encounter (statuses as of 12/21/2022) Resolved Problems Problem Noted Date Resolved Date Anxiety 06/18/2021 06/18/2021 Calculus of urinary bladder 06/18/202104/01 Pressure injury of left perineal ischial region, unstageable 06/18/2021 06/25/2021 Pressure injury of left buttock, stage 3 022 06/18/2021 Tinea corporis 06/18/2021 02/24/2022 Encounter for central line care 10/09/2020 06/18/2021 PICC (peripherally inserted central catheter) [facility] 10/08/2020 03/05/2021 LOU (generalized [...] a health care facility 12/04/2011 08/22/2020 Overview: [id number] Chlamydia trachomatis infection of lower genitou rinary site 12/04/2011 03/23/2017 Overview: 12/09 treated--pt to have partner treated Acute pharyngitis 09/27/2010 12/03/2010 Cough 09/27/2010 12/03/2010 Allergic rhinitis 09/27/2010 08/22/2020 Acute sinusitis 09/27/2010 12/03/2010 Dysfunction of eustachian tube 09/27/2010 1 Acute tonsillitis 08/12/2009 12/03/2010 ADVANCE DIRECTIVE INFORMATION 10/13/2005 Overview: Not applicable. documented as of this encounter (statuses as of 12/21/2022) Immunizations Name Administration Dates Next Due Adenovirus [...] ion Hematology Oncology Nurse, Med 4 [address] [facility] [place] [address] 12/29/2022 Office Visit Pain Medicine Kurt Ayala DO [address] [place] [address] 01/11/2023 Telemedicine Nutrition Services Jenelle Swenson, RDN [address] [place] [address] 02/11/2023 Office Visit Orthopedic Surgery Michael Pal MD [address] [place] [address] [place] [address] 02/25/2023 Telemedicine Pharmacy [facility] [place] [address] [place] [address] 07/02/2023 Hospital Encounter [facility] [address] [facility] [phone] 07/02/2023 Surgery Surgery Noel Benites MD [address] [place] [address] TYMPANOPLASTY WITHOUT OSSICULAR CHAIN RECONSTRUCTION 07/15/2023 Office Visit Otolaryngology Noel Benites MD [address] [place], [place] [phone] 08/12/2023 Office Visit Gynecology Obstetrics Backer, TRISTAN Valentine [address] [place] [address] Scheduled Orders Name Type Priority Associated Diagnoses Orde r Schedule MYCODE SUBSEQUENT ADULT Lab Routine MyCode Research Other*[id number] Every 6 Months for 2 Occurrences starting 12/21/2022 until 01/10/2024 Scheduled Procedures Name Priority Associated Diagnoses Date/Ti [...] as of this encounter Visit Diagnoses Diagnosis My[facility] Research Other*[id number] Perforation of both tympanic membranes Perforation of [...] the patient have Health Care Power of Hob Mill Operator? No Code Status History Code Status Date Activated Date Inactivated Comments Full Code 09/06/2013 3:12 PM 09/11/2013 7:57 PM This o rder reflects the patients wishes and were consensually agreed upon. Care Teams Field Examiner Relationship Specialty Start Date End Date Wade Lacy MD [address] [place] [address] PCP - General Family Medicine 08/22/20 documented as of this encounter
--- OUTSIDE RECORDS SUMMARY | 2023-04-08 13:31 | External Medical Summary | Summary of Care ---
Author Name Unknown Organization [facility] [address] [facility] [address] Phone [phone] Care Team Providers Care Pullman Car Repairer Name Role Phone Ally Pineda MD Primary Care Provider +1 [phone] Reason for Visit * Reason Comments eRx-Medication Refill Encounter Details Date Type Department Care Team Description 12/02/2022 Refill Family Practice [facility] [address] [place] [address] Ally Pineda MD [address] [place] [address] Allergies [...] Vancomycin Rash 09/06/2012 Occurred in hospital at [facility] (noted in '13). Unsure if Redmans vs idiopathic rash vs IgE-mediated allergy documented as of this encounter (statuses as of 12/02/2022) Medications Medication Sig Dispensed Refills Start Date [...] for Anxiety. 0 9 Active nystatin (NYSTOP) 622634 UNIT/GM powder Apply topically to affected area [...] A DAY 180 Capsule 3 2 Active Docusate Sodium 100 MG Oral Capsule [...] 30 DAYS 120 Tablet 11 3 Active HYDROcodone-Acetam inophen 10-325 MG Oral TabletIndications: Neuropathic pain,Chronic ulcer of sacral region with fat layer exposed (HCC) Take 1 Tablet by mouth every 6 hours as needed for Pain, Severe. 120 Tablet 0 3 Active CVS Mucus Extended Release 600 MG Oral Tablet Extended Release 12 Hour (guaiFENesin ER) TAKE 1 TABLET BY MOUTH IN THE MORNING AND BEFORE BEDTIME 60 Tablet 2 3 Active Morphine Sulfate ER 15 MG Oral Tablet Extended Release (MS Contin)Indications :Chronic ulcer of sacral region with fat layer exposed (HCC) Take 1 Tablet by mouth in the morning and 1 Tablet before bedtime. 60 Tablet 0 3 Active Methenamine Hippurate 1 GM Oral Tablet (Hiprex) TAKE 1 TABLET BY MOUTH TWICE A DAY 60 Tablet 5 3 Active Methenamine Hippurate 1 GM Oral Tablet (Hiprex) TAKE 1 TABLET BY MOUTH TWICE A DAY 60 Tablet 5 3 12/03/19 23 Discontinued documented as of this encounter (statuses as of 12/02/2022) Active Problems Problem Noted Date Encounter for [...] as of this encounter (statuses as of 12/02/2022) Resolved Problems Problem Noted Date Resolved Date Anxiety 06/18/2021 06/18/2021 Calculus of urinary bladder 06/18/202104/01 Pressure injury of left perineal ischial region, unstageable 06/18/2021 06/25/2021 Pressure injury of left buttock, stage 3 022 06/18/2021 Tinea corporis 06/18/2021 02/24/2022 Encounter for central line care 10/09/2020 06/18/2021 PICC (peripherally inserted central catheter) [facility] 10/08/2020 03/05/2021 LOU (generalized [...] a health care facility 12/04/2011 08/22/2020 Overview: [id number] Chlamydia trachomatis infection of lower genitou rinary site 12/04/2011 03/23/2017 Overview: 12/09 treated--pt to have partner treated Acute pharyngitis 09/27/2010 12/03/2010 Cough 09/27/2010 12/03/2010 Allergic rhinitis 09/27/2010 08/22/2020 Acute sinusitis 09/27/2010 12/03/2010 Dysfunction of eustachian tube 09/27/2010 1 Acute tonsillitis 08/12/2009 12/03/2010 ADVANCE DIRECTIVE INFORMATION 10/13/2005 Overview: Not applicable. documented as of this encounter (statuses as of 12/02/2022) Immunizations Name Administration Dates Next Due Adenovirus [...] Telephone Encounter - Ally Pineda MD - 12/02/2022 2:29 PM EDTSigned Prescriptions: Disp Refills Methenamine Hippurate 1 GM Oral Tablet (Hi*60 Tab*5 Sig: TAKE 1 TABLET BY MOUTH TWICE A DAY Authorizing Provider: ALLY PINEDA * Telephone Encounter - Edwina Barbosa [facility] - 12/02/2022 2:25 PM EDTPending Prescriptions: Disp Refills Methenamine Hippurate 1 GM Oral Tablet [Ph*60 Tab*5 Sig: TAKE 1 TABLET BY MOUTH TWICE A DAY * Telephone Encounter - Edwina Barbosa [facility] - 12/02/2022 2:25 PM EDT Telepharmacy is currently not authorized to approve refills for this class of medication per refillprotocol. Thank you, Edwina Barbosa, PharmD Staff Pharmacist Refill Call Center [phone] 12/02/2022, 2:25 PM Pending Prescriptions: Disp Refills Methenamine Hippurate 1 GM Oral Tablet [Ph*60 Tab*5 Sig: TAKE 1 TABLET BY MOUTH TWICE A DAY Last Visit: 2022 (in office), 02/24/2022 (telemedicine) Next Visit: Visit date not found If no future appointments scheduled, and last appointment is greater than a year ago, please schedule patient for a follow-up appointment Last date the medication was ordered: 06/08/22 Pharmacy: [id number] [address] [place] [address] Is this request for a controlled substance?No [...] ion Hematology Oncology Nurse, Med 4 [address] [facility] [place] [address] 12/29/2022 Office Visit Pain Medicine Kurt Ayala DO [address] [place] [address] 01/11/2023 Telemedicine Nutrition Services Jenelle Swenson, RDN [address] [place] [address] 02/25/2023 Telemedicine Pharmacy [facility] [place] [address] [place] [address] 07/02/2023 Hospital Encounter Surgery Noel Benites MD [address] [facility] [place] [address] 07/02/2023 Surgery Surgery Noel Benites MD [address] [facility] [place] [address] TYMPANOPLASTY WITHOUT OSSICULAR CHAIN RECONSTRUCTION 07/15/2023 Office Visit Otolaryngology Noel Benites MD [address] [facility] [place] [phone] 08/12/2023 Office Visit Gynecology Obstetrics Backer, TRISTAN Valentine [address] [place] [address] Scheduled Procedures Name Priority Associated Diagnoses Date/Ti [...] the patient have Health Care Power of Ring Rolling Machine Operator? No Code Status History Code Status Date Activated Date Inactivated Comments Full Code 09/06/2013 3:12 PM 09/11/2013 7:57 PM This o rder reflects the patients wishes and were consensually agreed upon. Care Teams Pullman Car Repairer Relationship Specialty Start Date End Date Ally Pineda MD [address] [place] [address] PCP - General Family Medicine 08/22/20 documented as of this encounter
--- OUTSIDE RECORDS SUMMARY | 2023-04-08 13:31 | External Medical Summary | Summary of Care ---
Author Name Unknown Organization [facility] Address [address] [facility] [place] [address] Phone [phone] Care Team Providers Care Wood Casket Assembler Name Role Phone Ally Pineda MD Primary Care Provider [phone] [phone] Reason for Visit * Reason Comments eRx-Medication Refill Encounter Details Date Type Department Care Team Description 12/06/2022 Refill Family Practice [facility] [address] [place] [address] Ally Pineda MD [address] [facility] [place] [address] Constipation Allergies Active Allergy [...] Vancomycin Rash 09/06/2012 Occurred in hospital at [facility] (noted in '13). Unsure if Redmans [...] 0 Active fluticasone (FLONASE) 50 MCG/ACT nasal sprayIndications: Chronic rhinitis Administer 2 Sprays into each nostril daily. 1 Inhaler 5 6 Active oxybutynin (DITROPAN) 5 MG TabletIndications :Chronic UTI Take 1 Tab by mouth every 6 hours. 120 Tab 11 7 Active metroNIDAZOLE, topical, (METROCREAM) 0.75 % creamIndications: Acne vulgaris Apply topically to affected area 2 [...] for Anxiety. 0 9 Active nystatin (NYSTOP) 882037 UNIT/GM powder Apply topically to affected area [...] to affected area. 0 0 Active MEDICAL INSTRUCTIONSIndic ations:Subacute osteomyelitis of sacrum (HCC) Deaccess port after completing 14-day course of daptomycin 1 Each 0 1 Active Additional Information Patient not taking.Reported on 2022 EPINEPHrine 0.3 MG/0.3ML Injection Solution Auto-injector (Autoinjector)Ind ications:Subacute osteomyelitis of sacrum (HCC) For a severe [...] 2 Active Famotidine 20 MG Oral Tablet (Pepcid)Indicatio ns:Acute gastritis without hemorrhage, unspecified gastritis type Take by mouth 1 Tablet in the morning AND 1 Tablet before bedtime. 60 Tablet 1 2 Active Additional Information Patient not taking.Reported on 10/01/2022 Enemeez Mini 283 MG/5ML Rectal Enema (Docusate Sodium)Indication s:C6 cervical fracture (HCC) USE EVERY EVENING FOR [...] 3 Active Xarelto 20 MG Oral Tablet (Rivaroxaban)Shanita cations:Anticoagu lation adequate TAKE 1 TABLET BY MOUTH DAILY WITH DINNER FOR BLOOD CLOT PREVENTION 90 Tablet 2 3 Active Gabapentin 300 MG Oral Capsule (Neurontin) TAKE 1 CAPSULE BY MOUTH FOUR TIMES A DAY 360 Capsule 1 3 Active ARIPiprazole 5 MG Oral Tablet Take 1 Tablet by mouth in the morning. 0 Active HYDROcodone-Aceta minophen 10-325 MG Oral TabletIndications :Neuropathic pain,Chronic ulcer of sacral region with fat layer exposed (HCC) Take 1 Tablet by mouth every 6 hours as needed for Pain, Severe. 120 Tablet 0 3 Active CVS Mucus Extended Release 600 MG Oral Tablet Extended Release 12 Hour (guaiFENesin ER) TAKE 1 TABLET BY MOUTH IN THE MORNING AND BEFORE BEDTIME 60 Tablet 2 3 Active Methenamine Hippurate 1 GM Oral Tablet (Hiprex) TAKE 1 TABLET BY MOUTH TWICE A DAY 60 Tablet 5 3 Active Ascorbic Acid 500 MG Oral Tablet (CVS Vitamin C) TAKE 2 TABLETS BY MOUTH TWICE A DAY FOR 30 DAYS 120 Tablet 11 3 Active Docusate Sodium 100 MG Oral Capsule (Colace)Indicatio ns:Constipation TAKE 1 CAPSULE BY MOUTH TWICE A DAY 180 Capsule 3 3 Active Docusate Sodium 100 MG Oral Capsule (Colace)Indicatio ns:Constipation TAKE 1 CAPSULE BY MOUTH TWICE A DAY 180 Capsule 3 2 023 Discontinued Morphine Sulfate ER 15 MG Oral Tablet Extended Release (MS Contin)Indication s:Chronic ulcer of sacral region with fat layer exposed (HCC) Take 1 Tablet by mouth in the morning and 1 Tablet before bedtime. 60 Tablet 0 3 023 Discontinued(Re fill) documented as of this encounter (statuses as [...] 06/18/2021 PICC (peripherally inserted central catheter) fl [facility] 10/08/2020 03/05/2021 LOU (generalized anxiety [...] a health care facility 12/04/2011 08/22/2020 Overview: [id number] Chlamydia trachomatis infection of lower genitou rinary [...] Encounter - Ally Pineda MD - 12/07/2022 10:02 AM EDTSigned Prescriptions: Disp Refills Docusate Sodium 100 MG Oral Capsule (Colac*180 Ca*3 Sig: TAKE 1 CAPSULE BY MOUTH TWICE A DAY Authorizing Provider: ALLY PINEDA * Telephone Encounter - Cami Santos LPN - 12/07/2022 9:39 AM EDTPending Prescriptions: Disp Refills Docusate Sodium 100 MG Oral Capsule [Pharm*180 Ca*3 Sig: TAKE 1 CAPSULE BY MOUTH TWICE A DAY * Telephone Encounter - Cami Santos LPN - 12/07/2022 9:38 AM EDT Pending Prescriptions: Disp Refills Docusate Sodium 100 MG Oral Capsule (Cola*180 Ca*3 Sig: TAKE 1 CAPSULE BY MOUTH TWICE A DAY Last Visit: 2022 (in office), 02/24/2022 (telemedicine) Next Visit: Visit date not found Last date the medication was ordered: 01/09/22 Patient Active Problem List Diagnosis Code Spastic neurogenic bladder N31.8 History of recurrent UTI (urinary tract infection) Z87.440 Port-A-Cath in place Z95.828 Persistent insomnia G47.00 Chronic ulcer of sacral region with fat layer exposed ([facility]) L98.492 Controlled substance agreement signed Z79.899 Autonomic dysfunction G90.9 Neuropathic pain M79.2 Osteomyelitis of pelvic region ([facility]) M86.9 Percutaneous endoscopic gastrostomy status ([facility]) Z93.1 Quadriplegia, C1-C4 complete ([facility]) G82.51 Thrombocytopenia ([facility]) D69.6 Depression with anxiety F41.8 Suprapubic catheter ([facility]) Z93.59 Encounter for adjustment and management of vascular access device Z45.2 Labs: Lab Results Component Value Date/Time CREATININE - [facility] 0.2 (L) 05/26/2022 02:43 PM CREATININE - [facility] 0.3 (L) 06/17/2017 01:32 PM CREATININE-OUTSIDE LAB 0.36 (A) 04/28/2021 12:00 AM Lab Results Component Value Date/Time POTASSIUM - [facility] 4.3 05/26/2022 02:43 PM POTASSIUM - [facility] 3.8 06/17/2017 01:32 PM POTASSIUM POCT - [facility] 3.6 09/07/2013 11:05 AM POTASSIUM-OUTSIDE LAB 3.8 04/28/2021 12:00 AM Lab Results Component Value Date/Time TSH - [facility] 1.07 04/03/2022 09:57 AM TSH - OUTSIDE LAB 1.45 04/09/2020 12:00 AM Lab Results Component Value Date/Time LDL CHOLESTEROL (CALCULATED) - [facility] 127 04/03/2022 09:57 AM Lab Results Component Value Date/Time ALT - [facility] 20 04/03/2022 09:57 AM ALT - [facility] 12 06/17/2017 01:32 PM ALT-OUTSIDE LAB 19 01/28/2017 12:00 AM Hemoglobin AIC Results: Lab Results Component Value Date/Time HEMOGLOBIN A1C - [facility] 5.1 04/03/2022 09:57 AM * Telephone Encounter - Emerson Johns - 12/06/2022 9:58 AM EDTPending Prescriptions: Disp Refills Docusate Sodium 100 MG Oral Capsule [Pharm*180 Ca*3 Sig: TAKE 1CAPSULE BY MOUTH TWICE A DAY documented in this encounter Plan of Treatment Upcoming Encounters Date Type Specialty Care Team Description 12/29/2022 Immunization/Inject ion Hematology Oncology Nurse, Med [address] [place] [address] 12/29/2022 Office Visit Pain Medicine Cousins, Kurt Vitale, [address] [place] [address] 01/11/2023 Telemedicine Nutrition Services Jenelle Swenson, LENO [address] [place] [address] [place] [address] 02/11/2023 Office Visit Orthopedic Surgery Michael Pal MD [address] [place] [address] [place] [address] 02/25/2023 Telemedicine [facility] [place] [address] 07/02/2023 Hospital Encounter Surgery Noel Benites MD [address] [place], [place] [phone] 07/02/2023 Surgery Surgery Noel Benites MD [address] [place], [place] [phone] TYMPANOPLASTY WITHOUT OSSICULAR CHAIN RECONSTRUCTION 07/15/2023 Office Visit Otolaryngology Noel Benites MD [address] [place], [place] [phone] 08/12/2023 Office Visit Gynecology Obstetrics Backer, TRISTAN [facility] [place] [address] Scheduled Procedures Name Priority Associated Diagnoses Date/Ti [...] the patient have Health Care Power of Ocean Rescue Lieutenant? No Code Status History Code Status Date Activated Date Inactivated Comments Full Code 09/06/2013 3:12 PM 09/11/2013 7:57 PM This o rder reflects the patients wishes and were consensually agreed upon. Care Teams Wood Casket Assembler Relationship Specialty Start Date End Date Ally Pineda MD [address] [place] [address] PCP - General Family Medicine 08/22/20 documented as of this encounter
--- OUTSIDE RECORDS SUMMARY | 2023-04-08 13:31 | External Medical Summary | Summary of Care ---
Author Name Unknown Organization [facility] Address [address] [place] [address] Phone [phone] Care Team Providers Care Sld Teacher Name Role Phone Wade Lacy MD Primary Care Provider +1 [phone] Reason for Visit * Reason Onset Date Comments Fax 12/15/2022 Encounter Details Date Type Department Care Team Description 12/15/2022 Telephone Family Practice [facility] [address] [place] [address] Wade Lacy MD [address] [facility] [place] [address] Fax Allergies Active Allergy Reactions Severity Noted Date [...] as of this encounter (statuses as of 12/15/2022) Medications Medication Sig Dispensed Refills Start Date [...] for Anxiety. 0 05/16/2019 Active nystatin (NYSTOP) 621124 UNIT/GM powder Apply topically to affected area [...] as of this encounter (statuses as of 12/15/2022) Active Problems Problem Noted Date Encounter for adjustment and management of vascular access device 05/28/2022 Depression with anxiety 04/22/2022 Suprapubic catheter 04/22/2022 Thrombocytopenia 11/17/2021 Autonomic dysfunction 06/18/2021 Osteomyelitis of pelvic region Percutaneous endoscopic gastrostomy [facility] 06/18/2021 Controlled substance agreement signed Persistent insomnia 08/22/2020 Chronic ulcer of sacral region with fat layer exposed 08/22/2020 Quadriplegia, C1-C4 complete 04/08/2020 Port-A-Cath in place 03/28/2018 History of recurrent UTI (urinary tract infection) 05/13/2017 Neuropathic pain 11/23/2015 Spastic neurogenic bladder 11/25/2012 documented as of this encounter (statuses as of 12/15/2022) Resolved Problems Problem Noted Date Resolved Date [...] a health care facility 12/04/2011 08/22/2020 Overview: [id number] Chlamydia trachomatis infection of lower genitou rinary site 12/04/2011 03/23/2017 Overview: 12/09 treated--pt to have partner treated Acute pharyngitis 09/27/2010 12/03/2010 Cough 09/27/2010 12/03/2010 Allergic rhinitis 09/27/2010 08/22/2020 Acute sinusitis 09/27/2010 12/03/2010 Dysfunction of eustachian tube 09/27/2010 1 Acute tonsillitis 08/12/2009 12/03/2010 ADVANCE DIRECTIVE INFORMATION 10/13/2005 Overview: Not applicable. documented as of this encounter (statuses as of 12/15/2022) Immunizations Name Administration Dates Next Due Adenovirus [...] encounter Miscellaneous Notes * Telephone Encounter - Jimmy Breen RN - 12/15/2022 6:58 PM EDT Pulmonary referral along with office note from 2022 faxed to [facility] at [phone] with confirmation. * Telephone Encounter - ARCENIO Weinstein - 12/15/2022 2:34 PM EDT Caller requesting the following information to be faxed: Name/Company of caller: Patient mom Information requested to be faxed: Pulmonology referral Fax number: Attention to Name/Company: [facility] Any additional information?: Never received referral documented in this encounter Plan of Treatment Upcoming Encounters Date Type Specialty Care Team Description 12/29/2022 Immunization[facility]Inject ion [facility] [address] 12/29/2022 Office Visit Pain Medicine CousinKurt reeves DO [address] [place] [address] 01/11/2023 Telemedicine Nutrition Services Jenelle Swenson, RDN [address] [place] [address] 02/11/2023 Office Visit Orthopedic Surgery Michael Pal MD [address] [place] [phone] 02/25/2023 Telemedicine Pharmacy [facility] [place] [address] [place] [address] 07/02/2023 Hospital Encounter Surgery Noel Benites MD [address] [place] [address] 07/02/2023 Surgery Surgery Noel Benites MD [address] [place] [address] TYMPANOPLASTY WITHOUT OSSICULAR CHAIN RECONSTRUCTION 07/15/2023 Office Visit Otolaryngology Noel Benites MD [address] [place] [address] 08/12/2023 Office Visit Gynecology Obstetrics BackerPiper CRNP [address] [place] [address] Scheduled Procedures Name Priority Associated Diagnoses Date/Ti [...] the patient have Health Care Power of Entry Level Manager? No Code Status History Code Status Date Activated Date Inactivated Comments Full Code 09/06/2013 3:12 PM 09/11/2013 7:57 PM This o rder reflects the patients wishes and were consensually agreed upon. Care Teams Sld Teacher Relationship Specialty Start Date End Date Wade Lacy MD [address] [facility] [place] [address] PCP - General Family Medicine 08/22/20 documented as of this encounter
--- OUTSIDE RECORDS SUMMARY | 2023-04-08 13:32 | External Medical Summary | Summary of Care ---
Author Name Unknown Organization [facility] Address [address] [place] [address] Phone [phone] Care Team Providers Care Risk Manager Name Role Phone Wade Lacy MD Primary Care Provider [phone] Reason for Visit * Reason Comments Dosage Adjustment In Person (Anticoag Cl inic) Pain Encounter Details Date Type Department Care Team Description 11/25/2022 Telemedicine Pharmacy, [facility] [address] [facility] [address] [facility] [address] [facility] [address] Chronic ulcer of sacral region with fat [...] Rash 09/06/2012 Occurred in hospital at [facility] (noted in '13). Unsure if Redmans vs [...] for Anxiety. 0 05/16/2019 Active nystatin (NYSTOP) 942347 UNIT/GM powder Apply topically to affected area [...] Osteomyelitis of pelvic region Percutaneous endoscopic gastrostomy [facility] 06/18/2021 Controlled substance agreement signed Persistent [...] 10/09/2020 06/18/2021 PICC (peripherally inserted central catheter) [facility] 10/08/2020 03/05/2021 LOU (generalized anxiety [...] a health care facility 12/04/2011 08/22/2020 Overview: [id number] Chlamydia trachomatis infection of lower genitou rinary [...] this encounter Progress Notes * Christina Hardy, [facility] - 11/25/2022 12:56 PM EDT Images from the original note were not included. Patient location: HOME. I was in a hospital or clinic location. After connecting through televideo,patient was verified with two unique identifiers. 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 2 Neurogenic bladder Osteomyelitis of right foot ([facility]) 11/25/2018 Persistent insomnia 08/22/2020 Quadriplegia ([facility]) Recurrent major depressive disorder, in full remission ([facility]) 11/02/2012 Spinal injuries C4 spinal puncture, C6 cervical fx Subclavian vein occlusion, right ([facility]) 08/2012 Varicella without complication age 3 Vasomotor [...] file Gets together: Not on file Attends advent service: Not on file Active member of [...] ER 15 mg Q12H Hydrocodone 10/325 mg [id number] prn Baclofen 30 mg QID prn Gabapentin [...] ER 15 mg Q12H Hydrocodone 10/325 mg [id number] prn Baclofen 30 mg QID prn Gabapentin 900 mg QID Dantrolene 100 mg TID Cymbalta 60 mg BID Lidocaine 5% cream *xarelto, zlopidem, lorazepam, remeron Patient verbalized understanding of the plan. Contact clinic with any issues. FOLLOW UP: Return to clinic in 12 weeks 02/25/2023 Christina Hardy RPh Clinical Pharmacist - Program Support Assistant Medication Therapy [facility] 11/25/2022, 12:57 PM documented in this encounter Plan of Treatment Upcoming Encounters Date Type Specialty Care Team Description 12/29/2022 Immunization/Inject ion Hematology Oncology Nurse, Med [address] [place] [address] 12/29/2022 Office Visit Pain Medicine CousinKurt reeves DO [address] [place] [address] 01/11/2023 Telemedicine Nutrition Services Jenelle Swenson, RDN [address] [place] [address] 02/25/2023 Telemedicine Pharmacy [facility] [address] [place] [address] 07/02/2023 Hospital Encounter Surgery Noel Benites MD [address] [place] [address] 07/02/2023 Surgery Surgery Noel Benites MD [address], [place] [id number] TYMPANOPLASTY WITHOUT OSSICULAR CHAIN RECONSTRUCTION 07/15/2023 Office Visit Otolaryngology Noel Benites MD [address] [facility] [place] [address] 08/12/2023 Office Visit Gynecology Obstetrics Backer, TRISTAN Valentine [address] [place] [address] Scheduled Procedures Name Priority Associated Diagnoses Date/Ti [...] the patient have Health Care Power of Sand Cutter Operator? No Code Status History Code Status Date Activated Date Inactivated Comments Full Code 09/06/2013 3:12 PM 09/11/2013 7:57 PM This o rder reflects the patients wishes and were consensually agreed upon. Care Teams Risk Manager Relationship Specialty Start Date End Date Wade Lacy MD [address] [place] [address] PCP - General Family Medicine 08/22/20 documented as of this encounter
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
--- OUTSIDE RECORDS SUMMARY | 2023-04-08 13:32 | External Medical Summary | Summary of Care ---
Author Name Unknown Organization [facility] Address [address] [place] [address] Phone [phone] Care Team Providers Care Surveillance Systems Engineer Name Role Phone Ally Pineda MD Primary Care Provider [phone] Reason for Visit * Reason Onset Date Comments Medication Refill 11/08/2022 Encounter Details Date Type Department Care Team Description 11/08/2022 Refill Pharmacy, [facility] [address] [place] [address] Ally Pineda MD [address] [facility] [address] Chronic ulcer of sacral region with fat [...] Vancomycin Rash 09/06/2012 Occurred in hospital at [facility] (noted in '13). Unsure if Redmans vs idiopathic rash vs IgE-mediated allergy documented as of this encounter (statuses as of 11/09/2022) Medications Medication Sig Dispensed Refills Start Date [...] for Anxiety. 0 05/16/2019 Active nystatin (NYSTOP) 129317 UNIT/GM powder Apply topically to affected area [...] of daptomycin 1 Each 0 11/21/2020 Active EPINEPHrine 0.3 MG/0.3ML Injection Solution Auto-injector (Autoinjector)Shanita [...] 08/25/2022 Active ARIPiprazole 5 MG Oral Tablet (Abilify) Take 1 Tablet by mouth in the morning. 0 Active Ascorbic Acid 500 MG Oral Tablet ([facility] Vitamin C) TAKE 2 TABLETS BY MOUTH TWICE A DAY FOR 30 DAYS 120 Tablet 11 10/05/2022 Active HYDROcodone-Acetam inophen 10-325 MG Oral TabletIndications: [...] before bedtime. 60 Tablet 0 11/09/2022 Active Morphine Sulfate ER 15 MG Oral Tablet Extended Release (MS Contin)Indications :Chronic ulcer of sacral region with fat layer exposed (HCC) Take 1 Tablet by mouth in the morning and 1 Tablet before bedtime. 60 Tablet 0 10/12/2022 11/09/19 Discontinu ed(Refill) documented as of this encounter (statuses as of 11/09/2022) Active Problems Problem Noted Date Encounter for [...] as of this encounter (statuses as of 11/09/2022) Resolved Problems Problem Noted Date Resolved Date Anxiety 06/18/2021 06/18/2021 Calculus of urinary bladder 06/18/20212 07/2021 Pressure injury of left perineal ischial region, unstageable 06/18/2021 06/25/2021 Pressure injury of left buttock, stage 3 022 06/18/2021 Tinea corporis 06/18/2021 02/24/2022 Encounter for central line care 10/09/2020 06/18/2021 [facility] 10/08/2020 03/05/2021 LOU (generalized anxiety disorder) 08/22/2020 [...] a health care facility 12/04/2011 08/22/2020 Overview: [id number] Chlamydia trachomatis infection of lower genitou rinary site 12/04/2011 03/23/2017 Overview: 12/09 treated--pt to have partner treated Acute pharyngitis 09/27/2010 12/03/2010 Cough 09/27/2010 12/03/2010 Allergic rhinitis 09/27/2010 08/22/2020 Acute sinusitis 09/27/2010 12/03/2010 Dysfunction of eustachian tube 09/27/2010 1 Acute tonsillitis 08/12/2009 12/03/2010 ADVANCE DIRECTIVE INFORMATION 10/13/2005 Overview: Not applicable. documented as of this encounter (statuses as of 11/09/2022) Immunizations Name Administration Dates Next Due Adenovirus [...] Telephone Encounter - Ally Pineda MD - 11/09/2022 10:55 AM EDTSigned Prescriptions: Disp Refills Morphine Sulfate ER 15 MG Oral Tablet Exte*60 Tab*0 Sig: Take 1 Tablet by mouth in the morning and 1 Tablet before bedtime. Authorizing Provider: ALLY PINEDA * Telephone Encounter - [facility] - 11/09/2022 7:10 AM EDT Pending Prescriptions: Disp Refills Morphine Sulfate ER 15 MG Oral Tablet Exte*60 Tab*0 Sig: Take 1Tablet by mouth in the morning and 1 Tablet before bedtime. documented in this encounter Plan of Treatment Upcoming Encounters Date Type Specialty Care Team Description 11/25/2022 Telemedicine Pharmacy [facility] [address] [place] [address] 12/09/2022 Immunization/Inject ion Hematology Oncology Nurse, Med [address] [place] [address] 01/11/2023 Telemedicine Nutrition Services Jenelle Swenson, RDN [address] [place] [address] 07/02/2023 Hospital Encounter Surgery Noel Benites MD [address], [place] [id number] 07/02/2023 Surgery Surgery Noel Benites MD [address] [place] [address] TYMPANOPLASTY WITHOUT OSSICULAR CHAIN RECONSTRUCTION 07/15/2023 Office Visit Otolaryngology Noel Benites MD [address] [facility] [place] [id number] 08/12/2023 Office Visit Gynecology Obstetrics Backer, TRISTAN Valentine [address] [place] [phone] Scheduled Procedures Name Priority Associated Diagnoses Date/Ti [...] 12 and Over 08/23/2021 08/23/2020 Pap Smear 08/29/2023 08/28/2020 GARDASIL-HPV IMMUNIZATION SERIES [...] the patient have Health Care Power of Tax Credit Leasing Consultant? No Code Status History Code Status Date Activated Date Inactivated Comments Full Code 09/06/2013 3:12 PM 09/11/2013 7:57 PM This o rder reflects the patients wishes and were consensually agreed upon. Care Teams Surveillance Systems Engineer Relationship Specialty Start Date End Date Regino, Ally Pankaj, MD [address] [place] [address] PCP - General Family Medicine 08/22/20 documented as of this encounter
--- OUTSIDE RECORDS SUMMARY | 2023-04-08 13:32 | External Medical Summary | Summary of Care ---
Author Name Unknown Organization [facility] Address [address] [facility] [address] Phone [phone] Care Team Providers Care Blower Blast Furnace Name Role Phone Ally Pineda MD Primary Care Provider [phone] [phone] Reason for Visit * Reason Comments eRx-Medication Refill Encounter Details Date Type Department Care Team Description 11/03/2022 Refill Family Practice [facility] [address] [place] [address] Ally Pineda MD [address] [facility] [place] [address] Allergies Active Allergy Reactions [...] Vancomycin Rash 09/06/2012 Occurred in hospital at [facility] (noted in '13). Unsure if Redmans vs idiopathic rash vs IgE-mediated allergy documented as of this encounter (statuses as of 11/03/2022) Medications Medication Sig Dispensed Refills Start Date [...] for Anxiety. 0 9 Active nystatin (NYSTOP) 573157 UNIT/GM powder Apply topically to affected area [...] of daptomycin 1 Each 0 1 Active EPINEPHrine 0.3 MG/0.3ML Injection Solution Auto-injector [...] MOVEMENT DIRECTED 5 Each 5 2 Active Methenamine Hippurate 1 GM Oral Tablet (Hiprex) TAKE 1 TABLET BY MOUTH TWICE A DAY 60 Tablet 5 3 Active Baclofen 20 MG Oral Tablet Take [...] MOUTH FOUR TIMES A DAY 360 Tablet 3 Active Xarelto 20 MG Oral Tablet (Rivaroxaban)Indic ations:Anticoagula tion adequate TAKE 1 TABLET BY MOUTH DAILY WITH DINNER FOR BLOOD CLOT PREVENTION 90 Tablet 2 3 Active Gabapentin 300 MG Oral Capsule (Neurontin) TAKE 1 CAPSULE BY MOUTH FOUR TIMES A DAY 360 Capsule 1 3 Active ARIPiprazole 5 MG Oral Tablet (Abilify) [...] TABLET BY MOUTH IN THE MORNING AND 1 TABLET BEFORE BEDTIME 60 Tablet 2 3 11/04/19 23 Discontinued documented as of this encounter (statuses as of 11/03/2022) Active Problems Problem Noted Date Encounter for [...] as of this encounter (statuses as of 11/03/2022) Resolved Problems Problem Noted Date Resolved Date Anxiety 06/18/2021 06/18/2021 Calculus of urinary bladder 06/18/20212 07/2021 Pressure injury of left perineal ischial region, unstageable 06/18/2021 06/25/2021 Pressure injury of left buttock, stage 3 022 06/18/2021 Tinea corporis 06/18/2021 02/24/2022 Encounter for central line care 10/09/2020 06/18/2021 PICC (peripherally inserted central catheter) fl [facility] 10/08/2020 03/05/2021 LOU (generalized anxiety disorder) [...] a health care facility 12/04/2011 08/22/2020 Overview: [id number] Chlamydia trachomatis infection of lower genitou rinary site 12/04/2011 03/23/2017 Overview: 12/09 treated--pt to have partner treated Acute pharyngitis 09/27/2010 12/03/2010 Cough 09/27/2010 12/03/2010 Allergic rhinitis 09/27/2010 08/22/2020 Acute sinusitis 09/27/2010 12/03/2010 Dysfunction of eustachian tube 09/27/2010 1 Acute tonsillitis 08/12/2009 12/03/2010 ADVANCE DIRECTIVE INFORMATION 10/13/2005 Overview: Not applicable. documented as of this encounter (statuses as of 11/03/2022) Immunizations Name Administration Dates Next Due Adenovirus [...] Telephone Encounter - Ally Pineda MD - 11/03/2022 7:33 AM EDTSigned Prescriptions: Disp Refills [facility] Mucus Extended Release 600 MG Oral Tab*60 Tab*2 Sig: TAKE 1 TABLET BY MOUTH IN THE MORNING AND BEFORE BEDTIME Authorizing Provider: ALLY PINEDA * Telephone Encounter - Liz Kaplan LPN - 11/03/2022 7:01 AM EDTPending Prescriptions: Disp Refills [facility] Mucus Extended Release 600 MG Oral Tab*60 Tab*2 Sig: TAKE 1 TABLET BY MOUTH IN THE MORNING AND BEFORE BEDTIME * Telephone Encounter - Emerson Johns - 11/03/2022 1:49 AM EDTPending Prescriptions: Disp Refills [facility] Mucus Extended Release 600 MG Oral Tab*60 Tab*2 Sig: TAKE 1TABLET BY MOUTH IN THE MORNING AND BEFORE BEDTIME documented in this encounter Plan of Treatment Upcoming Encounters Date Type Specialty Care Team Description 11/25/2022 Telemedicine Pharmacy [facility] [address] [facility] [address] 12/09/2022 Immunization/Inject ion Hematology Oncology Nurse, Med 4 [address] [place] [address] 01/11/2023 Telemedicine Nutrition Services Jenelle Swenson, RDN [address] [place] [address] [place] [address] 07/02/2023 Hospital Encounter Surgery Noel Benites MD [address] [place] [address] 07/02/2023 Surgery Surgery Noel Benites MD [address] [place] [address] TYMPANOPLASTY WITHOUT OSSICULAR CHAIN RECONSTRUCTION 07/15/2023 Office Visit Otolaryngology Noel Benites MD [address] [facility] [place] [address] 08/12/2023 Office Visit Gynecology Obstetrics Backer, TRISTAN Valentine [address] [place] [address] Scheduled Procedures Name Priority Associated Diagnoses Date/Ti me TYMPANOPLASTY WITHOUT OSSICULAR CHAIN RECONSTRUCTION Perforation of both tympanic membranes Conductive hearing loss, bilateral 07/02/2023 11:08 AM EST Health Maintenance Due Date Last [...] the patient have Health Care Power of Wire Mesh Knitter? No Code Status History Code Status Date Activated Date Inactivated Comments Full Code 09/06/2013 3:12 PM 09/11/2013 7:57 PM This o rder reflects the patients wishes and were consensually agreed upon. Care Teams Blower Blast Furnace Relationship Specialty Start Date End Date Ally Pineda MD [address] [place] [address] PCP - General Family Medicine 08/22/20 documented as of this encounter
--- OUTSIDE RECORDS SUMMARY | 2023-04-08 13:33 | External Medical Summary | Summary of Care ---
Author Name Unknown Organization [facility] Address [address] [place] [facility] [place] [address] Phone [phone] Care Team Providers Care Superintendent Marine Oil Terminal Name Role Phone Ally Pineda MD Primary Care Provider [phone] Reason for Visit * Reason Onset Date Comments Medication Refill 10/15/2022 Encounter Details Date Type Department Care Team Description 10/15/2022 Refill Family Practice [facility] [address] [place] [address] Ally Pineda MD [address] [facility] [place] [address] Chronic ulcer of sacral region with fat [...] as of this encounter (statuses as of 10/16/2022) Medications Medication Sig Dispensed Refills Start Date [...] for Anxiety. 0 05/16/2019 Active nystatin (NYSTOP) 062875 UNIT/GM powder Apply topically to affected area [...] before bedtime. 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 120 Tablet 0 08/11/2022 10/16/19 23 Discontinu ed(Refill) documented as of this encounter (statuses as of 10/16/2022) Active Problems Problem Noted Date Encounter for [...] as of this encounter (statuses as of 10/16/2022) Resolved Problems Problem Noted Date Resolved Date Anxiety 06/18/2021 06/18/2021 Calculus of urinary bladder 06/18/2021 11/2 07/2021 Pressure injury of left perineal ischial region, unstageable 06/18/2021 06/25/2021 Pressure injury of left buttock, stage 3 022 06/18/2021 Tinea corporis 06/18/2021 02/24/2022 Encounter for central line care 10/09/2020 06/18/2021 PICC (peripherally inserted central catheter) fl [facility] 10/08/2020 03/05/2021 LOU (generalized anxiety disorder) [...] a health care facility 12/04/2011 08/22/2020 Overview: [id number] Chlamydia trachomatis infection of lower genitou rinary site 12/04/2011 03/23/2017 Overview: 12/09 treated--pt to have partner treated Acute pharyngitis 09/27/2010 12/03/2010 Cough 09/27/2010 12/03/2010 Allergic rhinitis 09/27/2010 08/22/2020 Acute sinusitis 09/27/2010 12/03/2010 Dysfunction of eustachian tube 09/27/2010 1 Acute tonsillitis 08/12/2009 12/03/2010 ADVANCE DIRECTIVE INFORMATION 10/13/2005 Overview: Not applicable. documented as of this encounter (statuses as of 10/16/2022) Immunizations Name Administration Dates Next Due Adenovirus [...] Telephone Encounter - Ally Pineda MD - 10/16/2022 11:26 AM EDTSigned Prescriptions: Disp Refills oxyCODONE-Acetaminophen 10-325 MG Oral Tab*120 Ta*0 Sig: Take 1 Tablet by mouth every 6 hours as needed for Pain, Severe. Authorizing Provider: ALLY PINEDA * Telephone Encounter - Annika Mariano [facility] - 10/16/2022 6:36 AM EDTPending Prescriptions: Disp Refills oxyCODONE-Acetaminophen 10-325 MG Oral Tab*120 Ta*0 Sig: Take 1 Tablet by mouth every 6 hours as needed for Pain, Severe. * Telephone Encounter - Annika Mariano RP - 10/16/2022 6:36 AM EDT I have reviewed the patients controlled substance dispensing history in the Prescription Drug Monitoring Program in compliance with the [facility] regulations before prescribing a controlled substance. PDMP checked on 10/16/2022. Pending Prescriptions: Disp Refills oxyCODONE-Acetaminophen 10-325 MG Oral Ta*120 Ta*0 Sig: Take 1 Tablet by mouth every 6 hours as needed for Pain, Severe. Last Visit: 04/22/2022 (in office), 02/24/2022 (telemedicine) Next Visit: Visit date not found Date medication was last filled: 08/12 Date medication is due for refill: 09/11 Pharmacy: [id number] Is this request for a controlled substance? Yes and Urine Drug Screen Not completed Toxicology results: No results found. However, due to the size of the patient record, not all encounters were searched.Please check Results Review for a complete set of results. Please approve if appropriate. Thank you, Annika Mariano, PharmD. Clinical Pharmacist Pharmacy Refill Call Center 10/16/2022, 6:36 AM documented in this encounter Plan of Treatment Upcoming Encounters Date Type Specialty Care Team Description 10/27/2022 Immunization/Injection Hematology Oncolog y Nurse, Med 4 [address] [place] [address] 11/25/2022 Telemedicine Pharmacy [facility] [place] [address] [place] [address] 01/11/2023 Telemedicine Nutrition Services Jenelle Swenson, RDN [address] [place] [address] 07/15/2023 Office Visit Otolaryngology Noel Benites MD [address] [place] [address] 08/12/2023 Office Visit Gynecology Obstetrics Backer, TRISTAN Valentine [address] [place] [address] Health Maintenance Due Date Last Done Comments [...] sacral region with fat layer exposed (HCC) documented in this encounter Advance Directives Latest Code Status on File Code Status Date Activated Date Inactivated Comments Full Code 09/14/2014 2:39 AM 09/22/2014 6:47 PM Question Answer Comments Discussion of Advance Direct cecilia occurred with: Not Discussed Does the patient have a Living Will? No Does the patient have Health Care Power of Mirror Painter? No Code Status History Code Status Date Activated Date Inactivated Comments Full Code 09/06/2013 3:12 PM 09/11/2013 7:57 PM This o rder reflects the patients wishes and were consensually agreed upon. Care Teams Superintendent Marine [employer] Relationship Specialty Start Date End Date Ally Pineda MD [address] [place] [address] PCP - General Family Medicine 08/22/20 documented as of this encounter
--- OUTSIDE RECORDS SUMMARY | 2023-04-08 13:33 | External Medical Summary | Summary of Care ---
Author Name Unknown Organization [facility] Address [address] [place] [address] Phone [phone] Care Team Providers Care Ornamental Metalwork Designer Name Role Phone Wade Lacy MD Primary Care Provider [phone] [phone] Reason for Visit * Reason Onset Date Comments Medication Problem 10/28/2022 Encounter Details Date Type Department Care Team Description 10/28/2022 Telephone Family Practice [facility] [address] [place] [address] Wade Lacy MD [address] [facility] [place] [address] Medication Problem Allergies Active Allergy Reactions Severity Noted Date [...] as of this encounter (statuses as of 10/28/2022) Medications Medication Sig Dispensed Refills Start Date [...] for Anxiety. 0 05/16/2019 Active nystatin (NYSTOP) 794587 UNIT/GM powder Apply topically to affected area [...] Active EPINEPHrine 0.3 MG/0.3ML Injection Solution Auto-injector (Autoinjector)Indic [...] before bedtime. 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 120 Tablet 0 10/16/2022 Active documented as of this encounter (statuses as of 10/28/2022) Active Problems Problem Noted Date Encounter for [...] as of this encounter (statuses as of 10/28/2022) Resolved Problems Problem Noted Date Resolved Date Anxiety 06/18/2021 06/18/2021 Calculus of urinary bladder 06/18/202104/01 Pressure injury of left perineal ischial region, unstageable 06/18/2021 06/25/2021 Pressure injury of left buttock, stage 3 022 06/18/2021 Tinea corporis 06/18/2021 02/24/2022 Encounter for central line care 10/09/2020 06/18/2021 PICC (peripherally inserted central catheter) [facility] 10/08/2020 03/05/2021 LOU (generalized anxiety disorder) [...] a health care facility 12/04/2011 08/22/2020 Overview: [id number] Chlamydia trachomatis infection of lower genitou rinary site 12/04/2011 03/23/2017 Overview: 12/09 treated--pt to have partner treated Acute pharyngitis 09/27/2010 12/03/2010 Cough 09/27/2010 12/03/2010 Allergic rhinitis 09/27/2010 08/22/2020 Acute sinusitis 09/27/2010 12/03/2010 Dysfunction of eustachian tube 09/27/2010 1 Acute tonsillitis 08/12/2009 12/03/2010 ADVANCE DIRECTIVE INFORMATION 10/13/2005 Overview: Not applicable. documented as of this encounter (statuses as of 10/28/2022) Immunizations Name Administration Dates Next Due Adenovirus [...] * Telephone Encounter - KELI Garcia - 10/28/2022 11:54 AM EDT See MyG message * Telephone Encounter - ARCENIO Brooks - 10/28/2022 6:35 AM EDT [facility] Carol Hunter sent a fax stating Oxycodone-Acetaminophen 10-325 is on backorder. Please advise documented in this encounter Plan of Treatment Upcoming Encounters Date Type Specialty Care Team Description 11/25/2022 Telemedicine Pharmacy [facility] [address] [facility] [place] [address] 12/09/2022 Immunization/Injection Hematology Oncolog y Nurse, Med 4 [address] [facility] [place] [address] 01/11/2023 Telemedicine Nutrition Services Elizabetdany Jenelle, RDN [address] [place] [address] 07/02/2023 Hospital Encounter Surgery Noel Benites MD [address] [place] [address] 07/15/2023 Office Visit Otolaryngology Noel Benites MD [address] [place] [address] 08/12/2023 Office Visit Gynecology Obstetrics Backer, TRISTAN Valentine [address] [place] [address] Scheduled Procedures Name Priority Associated Diagnoses Date/Ti me TYMPANOPLASTY WITHOUT OSSICU LAR CHAIN RECONSTRUCTION Perforation of both tympanic membranes Conductive hearing loss, bilateral Health Maintenance Due Date Last Done Comments [...] the patient have Health Care Power of Application Development Team Lead? No Code Status History Code Status Date Activated Date Inactivated Comments Full Code 09/06/2013 3:12 PM 09/11/2013 7:57 PM This o rder reflects the patients wishes and were consensually agreed upon. Care Teams Ornamental Metalwork Designer Relationship Specialty Start Date End Date Wade Lacy MD [address] [place] [address] PCP - General Family Medicine 08/22/20 documented as of this encounter
--- OUTSIDE RECORDS SUMMARY | 2023-04-08 13:33 | External Medical Summary | Summary of Care ---
Author Name Unknown Organization [facility] Address [address] [place] [address] Phone [phone] Care Team Providers Care Improvement Nurse Name Role Phone Wade Lacy MD Primary Care Provider [phone] Reason for Visit * Reason Comments Procedure Port flush Encounter Details Date Type Department Care Team Description 10/27/2022 Immunization/In jection Hematology/Oncology Treatment, [place] [address] [place] [address] Nurse, Med 4 [address] [facility], [place] [id number] Encounter for adjustment and management of vascular access device*; Port-A-Cath in place Allergies Active Allergy Reactions Severity Noted Date [...] Vancomycin Rash 09/06/2012 Occurred in hospital at [facility] (noted in '13). Unsure if Redmans vs idiopathic rash vs IgE-mediated allergy documented as of this encounter (statuses as of 10/27/2022) Medications Medication Sig Dispensed Refills Start Date [...] for Anxiety. 0 05/16/2019 Active nystatin (NYSTOP) 582788 UNIT/GM powder Apply topically to affected area [...] as of this encounter (statuses as of 10/27/2022) Active Problems Problem Noted Date Encounter for [...] as of this encounter (statuses as of 10/27/2022) Resolved Problems Problem Noted Date Resolved Date Anxiety 06/18/2021 06/18/2021 Calculus of urinary bladder 06/18/202104/01 Pressure injury of left perineal ischial region, unstageable 06/18/2021 06/25/2021 Pressure injury of left buttock, stage 3 022 06/18/2021 Tinea corporis 06/18/2021 02/24/2022 Encounter for central line care 10/09/2020 06/18/2021 PICC (peripherally inserted central catheter) [facility] 10/08/2020 03/05/2021 LOU (generalized anxiety [...] a health care facility 12/04/2011 08/22/2020 Overview: [id number] Chlamydia trachomatis infection of lower genitou rinary site 12/04/2011 03/23/2017 Overview: 12/09 treated--pt to have partner treated Acute pharyngitis 09/27/2010 12/03/2010 Cough 09/27/2010 12/03/2010 Allergic rhinitis 09/27/2010 08/22/2020 Acute sinusitis 09/27/2010 12/03/2010 Dysfunction of eustachian tube 09/27/2010 1 Acute tonsillitis 08/12/2009 12/03/2010 ADVANCE DIRECTIVE INFORMATION 10/13/2005 Overview: Not applicable. documented as of this encounter (statuses as of 10/27/2022) Immunizations Name Administration Dates Next Due Adenovirus [...] No 09/06/2013 documented as of this encounter Nursing Notes * Kami Holly RN - 10/27/2022 4:14 PM EDT Pt presents to clinic in own power chair. VAD (Venous Access Device) accessed with #19G 3/4" without difficulty. VAD flushed with 10 ml NSS and Heparin 5 ml (100 units/ml). Reeves needle removed intact. Pt tolerated well. Pt discharged in stable condition. documented in this encounter Plan of Treatment Upcoming Encounters Date Type Specialty Care Team Description 11/25/2022 Telemedicine Pharmacy [facility] [place] [address] [facility] [place] [address] 12/09/2022 Immunization/Injection Hematology Oncolog y Nurse, Med [address] [facility] [place] [address] 01/11/2023 Telemedicine Nutrition Services Jenelle Swenson, L[place] [address] [place] [address] [place] [address] 07/02/2023 Hospital Encounter Surgery Noel Benites MD [address] [place] [address] 07/15/2023 Office Visit Otolaryngology Noel Benites MD [address] [place] [address] 08/12/2023 Office Visit Gynecology Obstetrics Backer, TRISTAN [place] [address] [place] [address] Scheduled Procedures Name Priority Associated Diagnoses Date/Ti [...] as of this encounter Visit Diagnoses Diagnosis Encounter for adjustment and management of vascular access device- Primary Port-A-Cath in place Other postprocedural status documented in this encounter Administered Medications Active Administered Medications - up to 3 most recent administrations Medication Order MAR Action Action Date Dose Rate Site hEParin 100 UNIT/ML Lock Flush inj 500 Units 500 Units (5 mL), IV Lock, PRN Other, IV Flush, Starting on Wed10/27/22 at 1512, Until Wed10/28/22 at 1511, For 24 hours, Do not flush if lock, PICC, or central line not in place; IV infusing or unable to flush. Given 10/27/2022 3:26 PM EDT 500 Units sodium chloride 0.9 % flush central line 10 mL 10 mL, IV Push, PRN Other, IV Flush, Starting on Wed10/27/22 at 1512, Until Wed10/28/22 at 1511, For 24 hours, Do not flush if lock, PICC, or central line not in place; IV infusing or unable to flush. Given 10/27/2022 3:26 PM EDT 10 mL documented in this encounter Advance Directives Latest Code Status on File Code Status Date Activated Date Inactivated Comments Full Code 09/14/2014 2:39 AM 09/22/2014 6:47 PM Question Answer Comments Discussion of Advance Direct cecilia occurred with: Not Discussed Does the patient have a Living Will? No Does the patient have Health Care Power of Medical Accounting Clerk? No Code Status History Code Status Date Activated Date Inactivated Comments Full Code 09/06/2013 3:12 PM 09/11/2013 7:57 PM This o rder reflects the patients wishes and were consensually agreed upon. Care Teams Improvement Nurse Relationship Specialty Start Date End Date Wade Lacy MD [address] [place] [address] PCP - General Family Medicine 08/22/20 documented as of this encounter
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
--- OUTSIDE RECORDS SUMMARY | 2023-04-08 13:34 | External Medical Summary | Summary of Care ---
Author Name Unknown Organization [facility] Address [address] [place] [address] Phone [phone] Care Team Providers Care Dust Puller Name Role Phone Ally Pineda MD Primary Care Provider [phone] Reason for Visit * Reason Onset Date Comments Medication Refill 10/09/2022 Encounter Details Date Type Department Care Team Description 10/09/2022 Refill Pharmacy, [facility] [address] [place] [address] Ally Pineda MD [address] [facility] [place] [address] Chronic ulcer of sacral region with fat [...] Vancomycin Rash 09/06/2012 Occurred in hospital at [facility] (noted in '13). Unsure if Redmans vs idiopathic rash vs IgE-mediated allergy documented as of this encounter (statuses as of 10/12/2022) Medications Medication Sig Dispensed Refills Start Date [...] for Anxiety. 0 05/16/2019 Active nystatin (NYSTOP) 761450 UNIT/GM powder Apply topically to affected area [...] BEFORE BEDTIME 60 Tablet 2 08/04/2022 Active oxyCODONE-Acetamin ophen 10-325 MG Oral Tablet [...] before bedtime. 60 Tablet 0 10/12/2022 Active Morphine Sulfate ER 15 MG Oral Tablet Extended Release (MS Contin)Indications :Chronic ulcer of sacral region with fat layer exposed (HCC) Take 1 Tablet by mouth in the morning and 1 Tablet before bedtime. 60 Tablet 0 09/10/2022 10/10/19 Discontinu ed(Refill) documented as of this encounter (statuses as of 10/12/2022) Active Problems Problem Noted Date Encounter for [...] as of this encounter (statuses as of 10/12/2022) Resolved Problems Problem Noted Date Resolved Date [...] a health care facility 12/04/2011 08/22/2020 Overview: [id number] Chlamydia trachomatis infection of lower genitou rinary site 12/04/2011 03/23/2017 Overview: 12/09 treated--pt to have partner treated Acute pharyngitis 09/27/2010 12/03/2010 Cough 09/27/2010 12/03/2010 Allergic rhinitis 09/27/2010 08/22/2020 Acute sinusitis 09/27/2010 12/03/2010 Dysfunction of eustachian tube 09/27/2010 1 Acute tonsillitis 08/12/2009 12/03/2010 ADVANCE DIRECTIVE INFORMATION 10/13/2005 Overview: Not applicable. documented as of this encounter (statuses as of 10/12/2022) Immunizations Name Administration Dates Next Due Adenovirus [...] Telephone Encounter - Ally Pineda MD - 10/12/2022 11:58 AM EDTSigned Prescriptions: Disp Refills Morphine Sulfate ER 15 MG Oral Tablet Exte*60 Tab*0 Sig: Take 1 Tablet by mouth in the morning and 1 Tablet before bedtime. Authorizing Provider: ALLY PINEDA * Telephone Encounter - Christina Hardy [facility] - 10/12/2022 8:40 AM EDT Pending Prescriptions: Disp Refills Morphine Sulfate ER 15 MG Oral Tablet Exte*60 Tab*0 Sig: Take 1Tablet by mouth in the morning and 1 Tablet before bedtime. documented in this encounter Plan of Treatment Upcoming Encounters Date Type Specialty Care Team Description 10/27/2022 Immunization/Injection Hematology Oncolog y Nurse, Med [address] [facility] [place] [address] 11/25/2022 Telemedicine Pharmacy [facility] [place] [address] [facility] [place] [address] 01/11/2023 Telemedicine Nutrition Services Jenelle Swenson, RDN [address] [place] [address] 07/15/2023 Office Visit Otolaryngology Noel Benites MD [address] [place] [address] 08/12/2023 Office Visit Gynecology Obstetrics BackerPiper CRNP [address] [place] [address] Health Maintenance Due Date Last Done Comments [...] the patient have Health Care Power of Linoleum Layer? No Code Status History Code Status Date Activated Date Inactivated Comments Full Code 09/06/2013 3:12 PM 09/11/2013 7:57 PM This o rder reflects the patients wishes and were consensually agreed upon. Care Teams Dust Puller Relationship Specialty Start Date End Date Ally Pineda MD [address] [place] [address] PCP - General Family Medicine 08/22/20 documented as of this encounter
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
--- OUTSIDE RECORDS SUMMARY | 2023-04-08 13:34 | External Medical Summary | Summary of Care ---
Author Name Unknown Organization [facility] Address [address] [address] Phone [phone] Care Team Providers Care Medical Sonographer Name Role Phone Ally Pineda MD Primary Care Provider [phone] [phone] Reason for Visit * Reason Comments eRx-Medication Refill Encounter Details Date Type Department Care Team Description 10/04/2022 Refill Family Practice [facility] [address] [place] [address] Ally Pineda MD [address] [...] Vancomycin Rash 09/06/2012 Occurred in hospital at [facility] (noted in '13). Unsure if [...] for Anxiety. 0 9 Active nystatin (NYSTOP) 961041 UNIT/GM powder Apply topically to affected area [...] 30 DAYS 120 Tablet 11 3 Active Ascorbic Acid 500 MG Oral [...] 06/18/2021 PICC (peripherally inserted central catheter) [facility] 10/08/2020 03/05/2021 LOU (generalized [...] a health care facility 12/04/2011 08/22/2020 Overview: [id number] Chlamydia trachomatis infection of lower genitou rinary [...] Telephone Encounter - Ally Pineda MD - 10/05/2022 10:20 AM EDTSigned Prescriptions: Disp Refills Ascorbic Acid 500 MG Oral Tablet ([facility]*120 Ta*11 Sig: TAKE 2 TABLETS BY MOUTH TWICE A DAY FOR 30 DAYS Authorizing Provider: ALLY PINEDA * Telephone Encounter - Cookie Graf LPN - 10/05/2022 10:06 AM EDTPending Prescriptions: Disp Refills [facility] Vitamin C 500 MG Oral Tablet [Pharmacy*120 Ta*11 Sig: TAKE 2 TABLETS BY MOUTH TWICE A DAY FOR 30 DAYS * Telephone Encounter - Cookie Graf LPN - 10/05/2022 10:04 AM EDT Pending Prescriptions: Disp Refills Ascorbic Acid 500 MG Oral Tablet ([facility] Vit*120 Ta*11 Sig: TAKE 2 TABLETS BY MOUTH TWICE A DAY FOR 30 DAYS Last Visit: 04/22/2022 (in office), 02/24/2022 (telemedicine) Next Visit: Visit date not found Last date the medication was ordered: 10/08/21 Patient Active Problem List Diagnosis Code Spastic neurogenic bladder N31.8 History of recurrent UTI (urinary tract infection) Z87.440 Port-A-Cath in place Z95.828 Persistent insomnia G47.00 Chronic ulcer of sacral region with fat layer exposed ([facility]) L98.492 Controlled substance agreement signed Z79.899 Autonomic dysfunction G90.9 Neuropathic pain M79.2 Osteomyelitis of pelvic region ([facility]) M86.9 Percutaneous endoscopic gastrostomy status ([facility]) Z93.1 Quadriplegia, C1-C4 complete ([facility]) G82.51 Thrombocytopenia ([facility]) D69.6 Depression with anxiety F41.8 Suprapubic catheter ([facility]) Z93.59 Encounter for adjustment and management of [...] * Telephone Encounter - Emerson Johns - 10/04/2022 8:48 AM EDTPending Prescriptions: Disp Refills [facility] Vitamin C 500 MG Oral Tablet [Pharmacy*120 Ta*11 Sig: TAKE 2 TABLETS BY MOUTH TWICE A DAY FOR 30 DAYS documented in this encounter Plan of Treatment Upcoming Encounters Date Type Specialty Care Team Description 10/27/2022 Immunization[facility]Injection [facility] [address] [facility] [address] 11/25/2022 Telemedicine Pharmacy [facility] [place] [address] [facility] [place] [address] 07/15/2023 Office Visit Otolaryngology Noel Benites MD [address] [place], [place] [id number] 08/12/2023 Office Visit Gynecology Obstetrics Backer, Piper MarkTRISTAN howard [address] [place] [address] Health Maintenance Due Date Last Done Comments [...] the patient have Health Care Power of Plant Maintenance Worker? No Code Status History Code Status Date Activated Date Inactivated Comments Full Code 09/06/2013 3:12 PM 09/11/2013 7:57 PM This o rder reflects the patients wishes and were consensually agreed upon. Care Teams Medical Sonographer Relationship Specialty Start Date End Date Ally Pineda MD [address] [place] [address] PCP - General Family Medicine 08/22/20 documented as of this encounter
== END 2023-04-08 15:05 | disposition home or self-care (01) | DRG 871 ==
LOC: ED 06:04 → EDINP 10:48 → SUATTDRO 10:48 → 2W 15:45 → 3E 04-04 15:51

== ENCOUNTER 2024-09-02 13:48 | Inpatient (IN) ==
--- OUTSIDE RECORDS SUMMARY | 2024-09-02 13:53 | External Medical Summary | Summary of Care ---
Author Name Unknown Organization [facility] Address [address] [place] [address] Phone [phone] Care Team Providers Care Negative Checker Name Role Phone Unavailable Primary Care Provider Unavailabl e Reason for Visit * Reason Onset Date Comments Medication Refill 08/29/2024 Encounter Details Date Type Department Care Team (Late st Contact Info) Description 08/29/2024 Telephone Infectious Disease, [place] [address] [place] [address] Maegan Márquez MD [address] [place] [address] Medication Refill Allergies Active Allergy Reactions Criticality Noted Date [...] in hospital at [facility] (noted in '13). Unsure if [place] vs idiopathic rash vs IgE-mediated allergy documented as of this encounter (statuses as of 08/30/2024) Medications DULoxetine (CYMBALTA) 30 MG CPEP Take 2 Capsules by mouth in the morning and 2 Capsules before bedtime. Active fluticasone (FLONASE) 50 MCG/ACT nasal sprayIndications: Chronic rhinitis Administer 2 Sprays into each nostril daily. 1 Inhaler 5 04/08/20 16 Active oxybutynin (DITROPAN) 5 MG TabletIndications :Chronic UTI Take 1 Tab by mouth every 6 hours. 120 Tab 11 10/20/19 17 Active Additional Information Patient taking differently:5 mg Oral Q6H,As needed, Informant: Patient, Parent/Guardian, Reported on 06/01/2024 metroNIDAZOLE, topical, (METROCREAM) 0.75 % creamIndications: Acne vulgaris Apply topically to affected area 2 times a day. apply to affected area. 45 g 5 03/17/20 17 Active busPIRone (BUSPAR) 10 MG Tablet Take 1 Tablet by mouth in the morning and 1 Tablet before bedtime. 05/16/20 19 Active Zolpidem Tartrate 5 MG Oral Tablet Take 1 Tablet by mouth at bedtime as needed for Sleep. 0 05/16/20 19 Active LORAzepam (ATIVAN) 0.5 MG Tablet Take 1 Tablet by mouth 3 times a day as needed for Anxiety. 0 05/16/20 19 Active nystatin (NYSTOP) 353912 UNIT/GM powder Apply topically to affected area 3 times a day. Apply to Twice daily to groin for skin irritation 60 g 1 02/01/20 20 Active Renacidin Irrigation Solution Irrigate with 30 mL as directed. Three times/week Active MEDICAL INSTRUCTIONSIndic ations:Subacute osteomyelitis of sacrum (HCC) Deaccess port after completing 14-day course of daptomycin 1 Each N/A 11/22/19 21 Active EPINEPHrine 0.3 MG/0.3ML Injection Solution Auto-injector (Autoinjector)Ind ications:Subacute osteomyelitis of sacrum (HCC) For a severe reaction: Inject in outer thigh following instructions on package and go to the Emergency room. 2 Each 11/22/19 21 Active Ascorbic Acid 500 MG Oral Tablet ([facility] Vitamin C) TAKE 2 TABLETS BY MOUTH TWICE A DAY FOR 30 DAYS 120 Tablet 11 03/04/20 23 Active Enemeez Mini 283 MG/5ML Rectal Enema (Docusate Sodium)Indication s:C6 cervical fracture (HCC) Administer 5 mL into the rectum daily as needed for Constipation. USE EVERY EVENING FOR BOWEL MOVEMENT DIRECTED Strength: 283 MG/5ML 5 Each 5 03/30/20 23 Active [facility]S Mucus Extended Release 600 MG Oral Tablet Extended Release 12 Hour (guaiFENesin ER) TAKE 1 TABLET BY MOUTH IN THE MORNING AND BEFORE BEDTIME 60 Tablet 2 05/10/20 23 Active Albuterol Sulfate HFA 108 (90 Base) MCG/ACT Inhalation Aerosol Solution 12/16/19 23 Active Baclofen 20 MG Oral Tablet TAKE 1 TABLET BY MOUTH IN THE MORNING, 1 TAB AT NOON, 1 TAB IN EVENING, AND 1 TAB BEFORE BEDTIME 360 Tablet 5 09/30/19 24 Active Baclofen 10 MG Oral Tablet (Lioresal) TAKE 1 TABLET BY MOUTH IN THE MORNING,AT NOON, IN THE EVENING ANDBEFORE BEDTIME. 360 Tablet 09/30/19 24 Active Nystatin 324336 UNIT/ML Mouth/Throat Suspension Swish and swallow 5 mL in the morning and 5 mL at noon and 5 mL in the evening and 5 mL before bedtime. For thrush.. 240 mL 1 12/16/19 24 Active ARIPiprazole 1 MG OR Tablet Take 0.5 Tablets by mouth in the morning. Active Neomycin-Polymyxi n-HC 3.5-97295-3 Otic Solution Administer 4 Drops into ears in the morning and 4 Drops at noon and 4 Drops before bedtime. To affected ear, for 10 days.. 10 mL 1 03/10/20 24 Active Potassium Chloride ER 10 MEQ Oral Capsule Extended Release TAKE 1 CAPSULE BY MOUTH TWICE A DAY 180 Capsule 1 03/21/20 24 Active Gabapentin 600 MG Oral Tablet (Neurontin) Take 1 Tablet by mouth in the morning and 1 Tablet at noon and 1 Tablet in the evening and 1 Tablet before bedtime. 360 Tablet 1 03/28/20 24 Active Gabapentin 300 MG Oral Capsule (Neurontin) TAKE 1 CAPSULE BY MOUTH FOUR TIMES A DAY Strength: 300 mg 360 Capsule 1 03/28/20 24 Active Norethindrone 0.35 MG Oral Tablet Take 1 Tablet by mouth in the morning. 28 Tablet 11 04/25/20 24 Active Rivaroxaban 20 MG Oral Tablet (Xarelto)Indicati ons:Anticoagulati on adequate TAKE 1 TABLET BY MOUTH DAILY WITH DINNER FOR BLOOD CLOT PREVENTION 90 Tablet 1 05/30/20 24 Active Docusate Sodium 100 MG Oral Capsule (Colace)Indicatio ns:Constipation TAKE 1 CAPSULE BY MOUTH TWICE A DAY 180 Capsule 3 06/21/19 25 Active Bisacodyl 5 MG Oral Tablet Delayed Release (Dulcolax) Take 1 Tablet by mouth at bedtime. 30 Tablet 5 06/21/19 25 Active Dantrolene Sodium 100 MG Oral Capsule TAKE 1 TABLET BY MOUTH THREE TIMES DAILY 270 Capsule 3 06/27/19 25 Active Methenamine Hippurate 1 GM Oral Tablet (Hiprex) TAKE 1 TABLET BY MOUTH TWICE A DAY 60 Tablet 11 07/03/19 25 Active oxyCODONE-Acetami nophen 5-325 MG Oral Tablet (Percocet)Indicat ions:Controlled substance agreement signed,Chronic ulcer of sacral region with fat layer exposed (HCC) Take 1 Tablet by mouth every 6 hours as needed for Pain, Severe. 120 Tablet 07/14/19 25 Active Morphine Sulfate ER 15 MG Oral Tablet Extended Release (Ms Contin) Take 1 Tablet by mouth in the morning and 1 Tablet before bedtime. 60 Tablet 08/29/19 25 Active Vancomycin HCl 125 MG Oral Capsule (Vancocin)Indicat ions:C. difficile colitis Take 1 Capsule by mouth in the morning for 7 days. 7 Capsule 08/30/19 25 025 Active Vancomycin HCl 125 MG Oral Capsule (Vancocin)Indicat ions:C. difficile colitis Take 1 Capsule by mouth in the morning and 1 Capsule in the evening. 60 Capsule 07/30/19 24 025 Discontin ued(Refil l) documented as of this encounter (statuses as of 08/30/2024) Active Problems Problem Noted Date Diagnosed Date Encounter for adjustment and management of vascular access device 05/28/2022 Depression with anxiety 04/22/2022 Suprapubic catheter 04/22/2022 Thrombocytopenia 11/17/2021 Autonomic dysfunction 06/18/2021 Percutaneous endoscopic gastrostomy status 06/18 Controlled substance agreement signed 03/05/2021 Persistent insomnia 08/22/2020 Quadriplegia, C1-C4 complete 04/08/2020 Port-A-Cath in place 03/28/2018 History of recurrent UTI (urinary tract infectio n) 05/13/2017 Neuropathic pain 11/23/2015 Spastic neurogenic bladder 11/25/2012 documented as of this encounter (statuses as of 08/30/2024) Resolved Problems Problem Noted Date Diagnosed Date Resolved Date Anxiety 06/18/2021 06/18/2021 Calculus of urinary bladder 06/18/2021 04/22/2022 Osteomyelitis of pelvic region 06/18/2021 04/13/2023 Pressure injury of left barbara ignacio ischial region, unstageable 06/18/2021 06/25/2021 Pressure injury of left buttock, stage 3 06/18/2021 06/18/2021 Tinea corporis 06/18/2021 02/24/2022 Encounter for central line care 10/09/2020 06/18/2021 PICC (peripherally inserted central catheter) flush 10/08/2020 03/05/2021 LOU (generalized anxiety disorder) 08/22/2020 04/22/2022 Hypotension 08/22/2020 10/16/2021 Chronic ulcer of sacral bg on with fat layer exposed 08/22/2020 04/13/2023 Osteomyelitis of second toe of right foot [...] 06/18/2021 History of cervical fracture 04/06/2012 06/18/2021 Overview (03/23/2017): C6 "Burst" fracture Ventilator dependent 04/06/2012 012 Routine general medical exam ination at a health care facility 12/04/2011 08/22/2020 Overview (12/04/2011): [id number] Chlamydia trachomatis infect ion of lower genitourinary site 12/04/2011 03/23/2017 Overview (12/04/2011): 12/09 treated--pt to have partner treated Acute pharyngitis 09/27/2010 12/03/2010 Cough 09/27/2010 12/03/2010 Allergic rhinitis 09/27/2010 08/22/2020 Acute sinusitis 09/27/2010 12/03/2010 Dysfunction of eustachian tube 09/27/2010 03/23/2017 Acute tonsillitis 08/12/2009 12/03/2010 ADVANCE DIRECTIVE INFORMATION 10/13/2005 08/22/2020 Overview (10/13/2005): Not applicable. documented as of this encounter (statuses as of 08/30/2024) Immunizations Name Administration Dates Next Due Adenovirus Type 4 And Type 7 Vacc, Live Oral 04/17/2011 H1N1 2009 Influenza, IM 05/07/2009 HPV Vaccine, 4-Valent 07/28/2007,03/31/2007,12/30 HepA Inact/HepB Recomb>=18yrs old 06/16/2011 Hepatitis B, 20+ yrs 05/28/1993,01/30/1993,11/21 IPV - Polio Virus Vaccine (Inact) 04/17/2011 Influenza Vaccine, Live, Int ranasal, Trivalent (Flumist) 04/17/2011 Meningococcal Conjugate Vacc ine (Menactra/Menveo) 12/23/2006 Meningococcal MCV4P Conjugat e Vaccine (Menactra) 04/17/2011,12/23/2006 PPD 11/18/2010 Pneumococcal Polysaccharide PPV23 (Pneumovax) 01/08/2012 Rabies Vaccine (Rabavert) 12/10/2011,11/26/2011, 11/19/2011 Seasonal Influenza Vac., MDV , IM, 0.5 mL (Fluzone) 02/13/2015,02/14/2014,02/15/2013,06/29,03/21/2010,02/26/2009 Seasonal Influenza Virus Vac cine, Unspecified Formulation 03/29/2019,03/03/2018,03/23/2017,05/08,02/01/2012,03/21/2010,02/26/2009 Seasonal Influenza, PF, 6 M & above, IM , (FluLaval or Fluzone) 04/13/2023,04/22/2022,03/05/2021,03/29,03/03/2018,03/23/2017 Seasonal Influenza, Quadriva lent, No Preserve, IM 05/08/2016 Seasonal Influenza, Trivalen t, (IIV3), PF, (Fluzone) 02/24/2024 TDAP, Age 7 and older, IM (Adacel) 04/17/2011, documented as of this encounter Social History Tobacco Use Types Packs/Day Years Used Date Smoking Tobacco: Former Cigarettes Q uit: 01/07/2012 Smokeless Tobacco: Never Comments:no [...] in the Last Year Never true 11/25/2018 Comments No Sex and Gender Information Value Date Recorded Sex Assigned at Female 07/20/2023 6:30 PM EST Legal Sex Female 7:11 AM EST Gender Identity Female 07/20/2023 6:30 PM EST Sexual Orientation Straight 07/20/2023 6: 30 PM EST Occupation Industry Job Start Date Job End Date Not on file Not on file Not on file Not on file documented as of this encounter Functional Status * Are you deaf or do you have serious difficulty hearing? Answer Date of Assessment Author No 09/06/2013 3:50 PM Ehsan Gorman RN * Are you blind or do you have serious difficulty seeing, even when wearing glasses? Answer Date of Assessment Author No 09/06/2013 3:50 PM Ehsan Gorman RN * Do you have serious difficulty walking or climbing stairs? (5 years old or older) Answer Date of Assessment Author Yes 09/06/2013 3:50 PM EDT Ehsan Bro RN * Do you have difficulty dressing or bathing? (5 years old or older) Answer Date of Assessment Author Yes 09/06/2013 3:50 PM EDT Ehsan Bro RN * Because of a physical, mental, or emotional condition, do you have difficulty doing errands alone such as visiting a doctor’s office or shopping? (15 years old or older) Answer Date of Assessment Author No 09/06/2013 3:50 PM EDT Ehsan Bro RN documented as of this encounter Mental Status * Because of a physical, mental, or emotional condition, do you have serious difficulty concentrating, remembering, or making decisions? (5 years old or older) Answer Entry Date Author No 09/06/2013 3:50 PM EDT Ehsan Bro RN documented in this encounter Miscellaneous Notes * Telephone Encounter - Maegan Márquez MD - 08/29/2024 4:31 PM EDT 1 week supply of daily oral vancomycin e-scripted documented in this encounter Plan of Treatment Upcoming Encounters Date Type Department Care Team (Latest Contact Info) Description 09/18/2024 9:04 AM EDT Hospital Encounter OR [facility], Operating Room, [facility] - 4th Floor [address] [place] [address] Tiff Perez, DO [address] [place] [address] 09/18/2024 9:04 AM EDT - 09/18/2024 9:45 AM EDT Surgery OR [facility], Operating Room, [facility] - 4th Floor [address] [place] [address] Tiff Perez, DO [address] [place] [address] COLONOSCOPY FLEXIBLE PROXIMAL DIAGNOSTIC 09/28/2024 10:00 AM EDT Nurse Only Hematology/Oncology Treatment, [place] [address] [place] [phone] [place], Chair [address] [place] [address] 10/05/2024 1:00 PM EDT Telemedicine Pharmacy, [facility] [place] [address] [facility], [facility] [address] [facility] [place] [address] 11/13/2024 2:00 PM EDT Imaging Radiology [facility] 2nd Floor, [place] [address] [facility] [place] [address] 12/26/2024 3:00 PM EDT Office Visit Otolaryngology [facility] [address] [facility] [place] [address] [place] [place], [address] [place] [address] Scheduled Procedures Name Priority Associated Diagnoses Date/Ti me COLONOSCOPY FLEXIBLE PROXIMAL DIAGNOSTIC Diarrhea, unspecified type 09/18/2024 9:04 AM EDT Health Maintenance Due Date Last Done Comments Depression Monitoring 2004 Hepatitis C Screening 2010 DTap/Tdap Vaccines (7 - Td or Tdap) 04/17/2021 04/17/2011, 12/23/2006, 11/22/1997, Additional history exists COVID-19 Vaccine ( season) 2024 04/10/2021, 10/07/2020, 09/16/2020 Pap Smear 08/11/2026 08/12/2023, 08/28/2020 Cervical Cancer Screening 08/11/2028 HPV/Co-Test 08/11/2028 08/12/2023 HPV (Gardasil) Vaccine Completed 8, 03/31/2007, 01/19/2007 MENINGOCOCCAL (MENACTRA/MENVEO) Completed 04/17/2011, 12/23/2006, 12/23/2006 Hepatitis B Vaccine Completed 06/16/2011, 04/17/2011, 05/28/1993, Additional history exists Pneumococcal Vaccine: Pediatrics (0 to 5 Years) and At-Risk Patients (6 to 18 Years and 19+ Years) Aged Out 01/08/2012 No longer eligib le based on patient's age to complete this topic Influenza Vaccine (FLU shot) Completed , 04/13/2023, 04/22/2022, Additional history exists Meningitis B Vaccine (Bexsero/Trumemba) Aged Out No longer eligible based on patient's age to complete this topic documented as of this encounter Medical Devices Not on filedocumented as of this encounter Visit Diagnoses Diagnosis C. difficile colitis Intestinal infection due to clostridium difficile Diarrhea, unspecified type documented in this encounter Advance Directives * Full Code (Latest Code Status on File) Date Activated Date Inactivated Comments 09/14/2014 2:39 AM 09/22/2014 6:47 PM Question Answer Comments Discussion of Advance Directives occurred with: Not Discussed Does the patient have a Living Will? No Does the patient have Health Care Power of Attor nataliya? No * Full Code Date Activated Date Inactivated Comments 09/06/2013 3:12 PM 09/11/2013 7:57 PM This order re flects the patients wishes and were consensually agreed upon.
--- OUTSIDE RECORDS SUMMARY | 2024-09-02 13:54 | External Medical Summary | Summary of Care ---
Author Name Unknown Organization [facility] Address [address] [facility] [address] Phone [phone] Care Team Providers Care Nonprofit Fundraiser Name Role Phone Unavailable Primary Care Provider Unavailabl e Reason for Visit * Reason Onset Date Comments Medication Refill 08/27/2024 Encounter Details Date Type Department Care Team ([facility] Contact Info) Description 08/27/2024 [address]ill [address] [phone] [facility] [place] [id number] Allergies Active Allergy Reactions Criticality Noted Date [...] Vancomycin Rash 09/06/2012 Occurred in hospital at [facility] (noted in '13). Unsure if Redmans vs idiopathic rash vs IgE-mediated allergy documented as of this encounter (statuses as of 08/28/2024) Medications DULoxetine (CYMBALTA) 30 MG CPEP Take [...] Anxiety. 0 05/16/20 19 Active nystatin (NYSTOP) 448698 UNIT/GM powder Apply topically to affected area [...] MCG/ACT Inhalation Aerosol Solution 12/16/19 23 Active Vancomycin HCl 125 MG Oral Capsule (Vancocin)Indicat ions:C. difficile colitis Take 1 Capsule by mouth in the morning and 1 Capsule in the evening. 60 Capsule 07/30/19 24 Active Baclofen 20 MG Oral Tablet TAKE 1 TABLET BY MOUTH IN THE MORNING, 1 TAB AT NOON, 1 TAB IN EVENING, AND 1 TAB BEFORE BEDTIME 360 Tablet 09/30/19 24 Active Baclofen 10 MG Oral Tablet (Lioresal) TAKE 1 TABLET BY MOUTH IN THE MORNING,AT NOON, IN THE EVENING ANDBEFORE BEDTIME. 360 Tablet 09/30/19 24 Active Nystatin 313189 UNIT/ML Mouth/Throat Suspension Swish and swallow 5 mL in the morning and 5 mL at noon and 5 mL in the evening and 5 mL before bedtime. For thrush.. 240 mL 1 12/16/19 24 Active ARIPiprazole 1 MG OR Tablet Take 0.5 Tablets by mouth in the morning. Active Neomycin-Polymyxi n-HC 3.5-24526-1 Otic Solution Administer 4 Drops into ears in the morning and 4 Drops at noon and 4 Drops before bedtime. To affected ear, for 10 days.. 10 mL 03/10/20 24 Active Potassium Chloride ER 10 MEQ Oral Capsule Extended Release TAKE 1 CAPSULE BY MOUTH TWICE A DAY 180 Capsule 03/21/20 24 Active Gabapentin 600 MG Oral Tablet (Neurontin) Take 1 Tablet by mouth in the morning and 1 Tablet at noon and 1 Tablet in the evening and 1 Tablet before bedtime. 360 Tablet 03/28/20 24 Active Gabapentin 300 MG Oral Capsule (Neurontin) TAKE 1 CAPSULE BY MOUTH FOUR TIMES A DAY Strength: 300 mg 360 Capsule 03/28/20 24 Active Norethindrone 0.35 MG Oral [...] before bedtime. 60 Tablet 08/29/19 25 Active Morphine Sulfate ER 15 MG Oral Tablet Extended Release (Ms Contin) Take 1 Tablet by mouth in the morning and 1 Tablet before bedtime. 60 Tablet 07/24/19 25 025 Discontin ued(Refil l) documented as of this encounter (statuses as of 08/28/2024) Active Problems Problem Noted Date Diagnosed Date [...] as of this encounter (statuses as of 08/28/2024) Resolved Problems Problem Noted Date Diagnosed Date [...] health care facility 12/04/2011 08/22/2020 Overview (12/04/2011): [id number] Chlamydia trachomatis infect ion of lower genitourinary site 12/04/2011 03/23/2017 Overview (12/04/2011): 12/09 treated--pt to have partner treated Acute pharyngitis 09/27/2010 12/03/2010 Cough 09/27/2010 12/03/2010 Allergic rhinitis 09/27/2010 08/22/2020 Acute sinusitis 09/27/2010 12/03/2010 Dysfunction of eustachian tube 09/27/2010 03/23/2017 Acute tonsillitis 08/12/2009 12/03/2010 ADVANCE DIRECTIVE INFORMATION 10/13/2005 08/22/2020 Overview (10/13/2005): Not applicable. documented as of this encounter (statuses as of 08/28/2024) Immunizations Name Administration Dates Next Due Adenovirus [...] Telephone Encounter - Ally Pineda MD - 08/28/2024 8:33 AM EDTSigned Prescriptions: Disp Refills Morphine Sulfate ER 15 MG Oral Tablet Exte*60 Tab*0 Sig: Take 1 Tablet by mouth in the morning and 1 Tablet before bedtime. Authorizing Provider: ALLY PINEDA * Telephone Encounter - Christina Hardy [facility] - 08/28/2024 7:46 AM EDT Pending Prescriptions: Disp Refills Morphine Sulfate ER 15 MG Oral Tablet Exte*60 Tab*0 Sig: Take 1Tablet by mouth in the morning and 1 Tablet before bedtime. documented in this encounter Plan of Treatment Upcoming Encounters Date Type Department Care Team (Latest Contact Info) Description 09/18/2024 9:04 AM EDT Hospital Encounter OR [facility], Operating Room, [facility] - 4th Floor [address] [phone] Tiff Perez, DO [address] [place] [address] 09/18/2024 9:04 AM EDT - 09/18/2024 9:45 AM EDT Surgery OR [facility], Operating Room, [facility] - 4th Floor [address] [place] [phone] Tiff Perez, DO [address] [place] [phone] COLONOSCOPY FLEXIBLE PROXIMAL DIAGNOSTIC 09/28/2024 10:00 AM EDT Nurse Only Hematology/Oncology Treatment, [place] [address] [place] [phone] [place], Chair [address] Hem Onc Scenery [address] [place], [place] [address] 10/05/2024 1:00 PM EDT Telemedicine Pharmacy, [facility] [address] [place] [address] [facility] [address] [place] [address] 11/13/2024 2:00 PM EDT Imaging Radiology [facility] 2nd [facility], [place] [address] [place] [address] 12/26/2024 3:00 PM EDT Office Visit Otolaryngology [facility] [address] [place] [address] Adán Telles, DO [address] [place] [phone] Scheduled Procedures Name Priority Associated Diagnoses Date/Ti me COLONOSCOPY FLEXIBLE PROXIMAL DIAGNOSTIC Diarrhea, unspecified type 09/18/2024 9:04 AM EDT Health Maintenance Due Date Last Done Comments Hepatitis C Screening 2010 DTap/Tdap Vaccines (7 - Td or Tdap) 04/17/2021 04/17/2011, 12/23/2006, 11/22/1997, Additional history exists Depression Monitoring 08/23/2021 08/23/2020 COVID-19 Vaccine ( season) 2024 04/10/2021, 10/07/2020, [...] filedocumented as of this encounter Advance Directives * Full Code [...]
--- OUTSIDE RECORDS SUMMARY | 2024-09-02 13:54 | External Medical Summary | Summary of Care ---
Author Name Unknown Organization [facility] Address [address] [facility] [address] Phone [phone] Care Team Providers Care Curb Setter Name Role Phone Unavailable Primary Care Provider Unavailabl e Reason for Visit * Reason Onset Date Comments Advice 08/28/2024 Encounter Details Date Type Department Care Team (Late st Contact Info) Description 08/28/2024 Telephone Gastroenterology, [facility] [address] [place] [phone] SelvinChiara matamoros CRNP [address] [place] [phone] Advice Allergies Active Allergy Reactions Criticality Noted Date [...] Rash 09/06/2012 Occurred in hospital at [facility] (noted in '13). Unsure if Redmans vs idiopathic rash vs IgE-mediated allergy documented as of this encounter (statuses as of 08/29/2024) Medications DULoxetine (CYMBALTA) 30 MG CPEP Take [...] Anxiety. 0 05/16/20 19 Active nystatin (NYSTOP) 963311 UNIT/GM powder Apply topically to affected area [...] AND BEFORE BEDTIME 60 Tablet 2 05/10/20 Active Albuterol Sulfate HFA 108 (90 Base) [...] BEDTIME. 360 Tablet 09/30/19 24 Active Nystatin 697855 UNIT/ML Mouth/Throat Suspension Swish and swallow 5 mL in the morning and 5 mL at noon and 5 mL in the evening and 5 mL before bedtime. For thrush.. 240 mL 12/16/19 24 Active ARIPiprazole 1 MG OR Tablet Take 0.5 Tablets by mouth in the morning. Active Neomycin-Polymyxi n-HC 3.5-18367-4 Otic Solution Administer 4 Drops into ears [...] as of this encounter (statuses as of 08/29/2024) Active Problems Problem Noted Date Diagnosed Date [...] as of this encounter (statuses as of 08/29/2024) Resolved Problems Problem Noted Date Diagnosed Date [...] health care facility 12/04/2011 08/22/2020 Overview (12/04/2011): [id number] Chlamydia trachomatis infect ion of lower genitourinary site 12/04/2011 03/23/2017 Overview (12/04/2011): 12/09 treated--pt to have partner treated Acute pharyngitis 09/27/2010 12/03/2010 Cough 09/27/2010 12/03/2010 Allergic rhinitis 09/27/2010 08/22/2020 Acute sinusitis 09/27/2010 12/03/2010 Dysfunction of eustachian tube 09/27/2010 03/23/2017 Acute tonsillitis 08/12/2009 12/03/2010 ADVANCE DIRECTIVE INFORMATION 10/13/2005 08/22/2020 Overview (10/13/2005): Not applicable. documented as of this encounter (statuses as of 08/29/2024) Immunizations Name Administration Dates Next Due Adenovirus [...] of Assessment Author Yes 09/06/2013 3:50 PM Ehsan Gorman RN * Do you have difficulty dressing [...] encounter Miscellaneous Notes * Telephone Encounter - Geno Vital RN - 08/29/2024 12:22 PM EDT Patient's mother notified. Verbalizes understanding. * Telephone Encounter - Chiara Montalvo CRNP - 08/28/2024 10:33 AM EDT Will defer to PCP/Pulmonary regarding pneumonia treatment however patient can start taking a probiotic. * Telephone Encounter - Paulina Yu OSA - 08/28/2024 9:29 AM EDT Patient mother Ann Marie called states patient was seen yesterday at ER and diagnosed with pneumonia. Patient was prescribed Augmentin but Ann Marie states this is concerning as it has caused C diff in the past. Ann Marie is waiting to hear back from pulmonology to see if they will change meds but needs a plan ofaction if they don't. Patient mother requesting a call back from nurse or provider. documented in this encounter Plan of Treatment Upcoming Encounters Date Type Department Care Team (Latest Contact Info) Description 09/18/2024 9:04 AM EDT Hospital Encounter OR [facility], Operating Room, [facility] - 4th Floor [address] [place] [phone] Tiff Perez, DO [address] [place] [phone] 09/18/2024 9:04 AM EDT - 09/18/2024 9:45 AM EDT Surgery OR [facility], Operating Room, [facility] - 4th Floor [address] [place] [phone] Tiff Perez, DO [address] [place] [phone] COLONOSCOPY FLEXIBLE PROXIMAL DIAGNOSTIC 09/28/2024 10:00 AM EDT Nurse Only Hematology/[facility] [place] [address] [facility] [phone] [place], Chair [address] Hem Onc Scenery [address] [place] [address] 10/05/2024 1:00 PM EDT Telemedicine Pharmacy, [facility] [address] [place] [address] [facility] [address] [place] [address] 11/13/2024 2:00 PM EDT Imaging Radiology [facility] 2nd [facility] [address] [place] [address] 12/26/2024 3:00 PM EDT Office Visit Otolaryngology [facility] [address] [address] Adán Telles, DO [address] [place] [address] Scheduled Procedures Name Priority Associated Diagnoses Date/Ti [...] HPV/Co-Test 08/11/2028 08/12/2023 HPV (Gardasil) Vaccine Completed , 03/31/2007, 01/19/2007 MENINGOCOCCAL (MENACTRA/MENVEO) Completed 04/17/2011, 12/23/2006, [...]
--- NOTE | 2024-09-02 14:20 | Emergency Department Note ---
Impression & Plan Acute hypoxic respiratory failure, Right lower lobe pneumonia, Quadriplegia, Acute hypokalemia ED Provider Note NAME: ELENITA GUAMAN AGE: 33 SEX: F : 1990 ARRIVES VIA: Walk-In INFORMANT: Patient, Caregiver ED PROVIDER(S): Yosvany Page MD CHIEF COMPLAINT: Shortness of breath, low oxygen MEDICAL DECISION MAKING: Patient presents with the above. Sepsis protocols were initiated. Patient placed on BiPAP and given 2 DuoNebs. Empiric antibiotics ordered Zosyn and azithromycin. Patient also with concern for C. difficile and infectious disease reportedly likes her on p.o. vancomycin. Patient states that she tolerates this by mouth does not IV. This was ordered as well along with blood cultures urinalysis and empiric 2 L of IV fluids. Patient was placed on BiPAP in order to help with her breathing given that she is a bit more limited does require a CoughAssist. I did speak to respiratory noted facilitate this in addition to DuoNeb treatments. Was a significant amount of time required in order to get blood work as IV team had been called as there were some issues with the patient's access of port during prior visit. Patient's blood work does show a white count of 11. Hemoglobin normal. Mild thrombocytopenia at 129. The patient's kidney function is unremarkable hypokalemia 3.2. Procalcitonin is 1.21. Critical Care: I have personally spent 37 minutes of critical care time in direct management of this patient. This includes bedside care, interpretation of diagnostic studies, and testing, discussion with consultants, patient, and family members, and other require inpatient management activities. This 37 minutes is in excess of all separately billable procedures. Discussion w/ other healthcare providers: Elenita Beebe PA-C and Dr. Griffiths Prior /Outside records reviewed: None Differential diagnosis: Reactive airway disease, pneumonia, pneumothorax, COPD, CHF, ACS, pulmonary embolism, musculoskeletal, GERD as well as other pathologies were considered. Diagnostics, as interpreted by me: ECG: Normal sinus rhythm, rate of 73, normal intervals, normal axis, T wave versions anteriorly. Cardiac monitoring: An order was placed for continuous cardiac monitoring. The monitor shows a rate of 75 with sinus rhythm. Patient was placed on pulse oximetry Medical decision rules: None Imaging studies: I informally interpreted the patient's chest x-ray show concern for right lower lobe pneumonia with formal report to follow. HPI: Patient presents due to concern for shortness of breath increased work of breathing. The patient states that she has had some clear productive sputum. The patient was seen by myself on Wednesday had a developing pneumonia was placed on Augmentin. The patient had also been prescribed Dificid given her concerns for C. difficile at that time. Patient states that her symptoms of gotten progressively worse throughout the week. The patient did speak with pulmonary and the patient was able to get a nebulizer machine nebulizer treatments and has been using her CoughAssist. The patient states that she has had some clear productive sputum. Patient denies any smoking history. No recent travel. The patient has been taking the antibiotics throughout the week but has not had improvement in symptoms. Sats throughout the week have been in the 80s. No reported fevers or chills. The patient does have a history of quadriplegia. Indwelling chronic catheter. No issues with that meds been draining without issue. No vomiting or diarrhea. PAST MEDICAL HISTORY: See Below PAST SURGICAL HISTORY: See Below SOCIAL HISTORY: See Below HOME MEDICATIONS: See Below ALLERGIES: See Below VITALS: See Below PHYSICAL EXAMINATION: GENERAL: Tired in appearance but nontoxic. Wearing glasses. EYE EXAM: Normal conjunctiva. PERRL, no anisocoria and EOM's grossly intact w/o pain. OROPHARYNX: Dry mucus membranes, grossly normal dentition. NECK: Trachea midline, no stridor. Supple, no nuchal rigidity, no adenopathy, non-tender. No signs of meningismus. FROM of the neck with good chin to chest and neck extension. LUNGS: Coarse sounds bilaterally more prominent in the right chest. Normal chest wall mechanics. HEART: NSR, no MRG. ABDOMEN: Abdomen soft, non-tender, no masses, no rebound or guarding. BACK: No CVA TTP. SKIN: No rashes and no bruising. UPPER EXTREMITIES: Upper extremities are grossly normal. LOWER EXTREMITIES: Grossly normal, no edema. NEURO EXAM: A&O x3, cranial nerves II-XII grossly intact, normal speech, moves all 4 extremities. 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 Chronic atelectasis Chronic cough Suprapubic catheter Placed at [facility] Jan 2022 Encounter for pre-operative examination Quadriplegia (Acute) Allergy to multiple antibiotics Nausea & vomiting Chronic hypotension 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) Follows with wound clinic- currently undergoing hyperbaric oxygen treatments Neurogenic dysfunction of the urinary bladder (Acute) Anxiety Autonomic dysreflexia Depression Medical History [place] [facility] Stage III pressure ulcer of ankle Left [place] [facility] Neuromuscular respiratory weakness [facility] [place] History of MRSA infection per PAT rn renal, 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 ago Autonomic dysreflexia History of Clostridioides difficile colitis per PAT RN notation "resolved, recently tested and negative" first entered into EMR 2022 History of cervical fracture History of DVT (deep vein thrombosis) upper [id number] into EMR in 2014 assisted (current) use of anticoagulants Xarelto Pressure ulcer of toe of left foot following with wound clinic Quadriplegia history C4 fracture Restrictive lung mechanics due to neuromuscular disease atelectasis - [facility] [place] Suprapubic catheter Former smoker Anxiety and depression Chronic osteomyelitis sacrum per previous records Bladder stones Hx of pneumothorax Hx with chest tube. Treated at [facility]> 6 ys ago Environmental allergies Seasonal and environmental allergies History of seizure 2013 - due to BP issue and autonomic dysreflexia > none since Port-A-Cath in place 06/15/18 power port Neurogenic bladder Surgical History History of fusion of cervical spine ACDF "C5-C7, C3-T2" Hx of surgical procedure Debridement of Stage 4 Ischial Pressure Ulcer with Hamstring Flap Closure History of myringotomy Bilateral Status post amputation of toe second toe, right foot. 07/2019. S/P cystoscopy with botox injections Hx of wisdom tooth extraction History of urostomy Subsequent Removal Hx of tracheostomy since removed History of bowel resection 2/2 Obstruction/Scar Tissue History of appendectomy S/P thoracentesis PEG (percutaneous endoscopic gastrostomy) status Subsequent Removal Family History Father Diabetes Brother Depression Other No family history of adverse response to anesthesia Social History Smoking Status: Former smoker Tobacco Type: Cigarettes Age Started Using Tobacco: 18; Age Quit Using Tobacco: 28; packs per day: 1; Second Hand Exposure: No; Do You Dip or Chew Tobacco: No; Hx Alcohol Use: No Hx Substance Use: No Preferred Language: Lithuanian Communication Ability: Effective Visual Impairment: Limited Hearing Ability: Normal Solar 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 Required: No Beliefs That Will Affect Care: None marital status: Single Current Living Situation: Family Current Living Situation Comment: Mother And Father current occupational status: disabled How many Children do You have: 0 Feels Safe at Home: Yes Safety Concerns: Feels Safe At This Time Childhood Exposure to Second-Hand Smoke: No Diet: regular during the past year weight has: remained stable Physical Activity Frequency: Does not Exercise Seatbelt Use: always Assistive Devices: Hospital Bed and Oxygen - Continuous Allergies Allergies Allergy/AdvReac Type Severity Reaction Status Date / Time cefepime Allergy Severe Anaphylaxis Verified 08/27/24 17:57 fentanyl Allergy Intermediate Itchiness, Verified 08/27/24 17:57 Rash levofloxacin Allergy Intermediate Rash Verified 08/27/24 17:57 vancomycin Allergy Intermediate Rash Verified 08/27/24 17:57 imipenem AdvReac Severe Seizure Verified 08/27/24 17:57 Home Meds Home Medications Medication Instructions Recorded Confirmed ascorbic acid (vitamin C) 1,000 mg 1 g PO BID 03/07/18 09/02/24 tablet dantrolene 100 mg capsule 100 mg PO TID 03/07/18 09/02/24 fluticasone propionate 50 2 spray intranasal QAM PRN 03/07/18 09/02/24 mcg/actuation nasal allergies spray,suspension (Flonase Allergy Relief) lorazepam 0.5 mg tablet (Ativan) 0.5 mg PO Q8 PRN Anxiety 03/07/18 09/02/24 rivaroxaban 20 mg tablet (Xarelto) 20 mg PO QAM 03/07/18 09/02/24 nystatin 100,000 unit/gram topical 1 applic topical BID PRN Skin 03/18/18 09/02/24 powder Irritation guaifenesin 600 mg tablet, 600 mg PO Q12H 04/06/18 09/02/24 extended release 12 hr (Mucinex) baclofen 20 mg tablet 20 mg PO QID 12/28/18 09/02/24 duloxetine 60 mg capsule,delayed 60 mg PO BID 02/02/19 09/02/24 release (Cymbalta) baclofen 10 mg tablet 10 mg PO QID 09/25/19 09/02/24 docusate sodium 283 mg/5 mL enema 283 mg VT HS 09/25/19 09/02/24 (Enemeez) potassium chloride 10 mEq 10 meq PO BID 09/29/20 09/02/24 capsule,extended release acetaminophen 500 mg tablet 1,000 mg PO Q6H PRN Fever Or Pain 01/07/21 09/02/24 (Tylenol Extra Strength) oxycodone-acetaminophen 10 mg-325 1 tab PO Q6 PRN Pain 01/07/21 09/02/24 mg tablet hydroxyzine HCl 25 mg tablet 25 mg PO HS PRN hyperactivity 12/15/22 09/02/24 morphine 15 mg tablet,extended 15 mg PO AMHS 11/27/23 09/02/24 release aripiprazole 2 mg tablet (Abilify) 1 mg PO QAM 03/01/24 09/02/24 gabapentin 300 mg capsule 300 mg PO QID 03/01/24 09/02/24 gabapentin 600 mg tablet 600 mg PO QID 03/01/24 09/02/24 trazodone 50 mg tablet 50 mg PO HS PRN prn 06/15/24 09/02/24 docusate sodium 100 mg capsule 100 mg PO DAILY@1600 08/27/24 09/02/24 methenamine hippurate 1 gram tablet 1 g PO BID 08/27/24 09/02/24 norethindrone (contraceptive) 0.35 0.35 mg PO DAILY 08/27/24 09/02/24 mg tablet (Jencycla) Previous Rx's Medication Instructions Recorded epinephrine 0.3 mg/0.3 mL 0.3 mg (0.3 mL) IM ONCE PRN 01/07/21 injection, auto-injector (EpiPen anaphylaxis #1 ea 2-Fam) citric ac 1980.6 mg-glucono 59.4 30 ml irrigation 3XWK #900 mL 12/11/21 mg-mag carb 980.4 mg/30 mL irrig.soln (Renacidin) Flutter Valve #1 ea 12/23/22 Incentive Spirometer #1 ea 12/23/22 compressor, for nebulizer #1 ea 08/28/24 ipratropium 0.5 mg-albuterol 3 mg 3 ml inhalation QID PRN wheezing 08/28/24 (2.5 mg base)/3 mL nebulization #180 mL soln nebulizer accessories (A.I.R.S. #50 ea 08/28/24 Nebulizer Replacement kit) Results & Data (ED) Vital Signs Vital Signs - 24 hr 09/02/24 14:06 09/02/24 14:51 09/02/24 14:53 Temperature 36.6 C Temperature Source Temporal Artery Scan Pulse Rate 84 68 Pulse Rate [Apical] 68 Respiratory Rate 18 17 17 Respiratory Effort / Characteristics Non-Labored Spontaneous Spontaneous Non-Labored Spontaneous Respiratory Depth Normal Normal Respiratory Pattern Regular Regular Blood Pressure 87/57 L Blood Pressure [Right Arm] Blood Pressure Mean 67 Blood Pressure Mean [Right Arm] Pulse Oximetry 94 95 95 Oxygen Delivery Method Room Air BiPAP Oxygen Flow Rate Fraction of Inspired Oxygen 35 35 Sepsis Recent Fever Within 48 Hours Yes Sepsis New/Unexplained Change in Mental Status N/A Sepsis Action Taken by Nursing No Action Required 09/02/24 15:49 09/02/24 15:49 09/02/24 16:00 Temperature Temperature Source Pulse Rate 73 Pulse Rate [Apical] 79 69 Respiratory Rate 17 17 16 Respiratory Effort / Characteristics Non-Labored Respiratory Depth Respiratory Pattern Blood Pressure Blood Pressure [Right Arm] 92/64 L 111/71 Blood Pressure Mean Blood Pressure Mean [Right Arm] 73 84 Pulse Oximetry 96 97 96 Oxygen Delivery Method BiPAP BiPAP BiPAP Oxygen Flow Rate Fraction of Inspired Oxygen Sepsis Recent Fever Within 48 Hours Sepsis New/Unexplained Change in Mental Status Sepsis Action Taken by Nursing 09/02/24 16:15 09/02/24 16:30 09/02/24 16:45 Temperature Temperature Source Pulse Rate Pulse Rate [Apical] 92 H 74 82 Respiratory Rate 16 16 16 Respiratory Effort / Characteristics Non-Labored Spontaneous Respiratory Depth Respiratory Pattern Blood Pressure Blood Pressure [Right Arm] 111/71 Blood Pressure Mean Blood Pressure Mean [Right Arm] 84 Pulse Oximetry 95 94 94 Oxygen Delivery Method BiPAP Nasal Cannula Oxygen Flow Rate 3 Fraction of Inspired Oxygen Sepsis Recent Fever Within 48 Hours Sepsis New/Unexplained Change in Mental Status Sepsis Action Taken by Assisted Medications Current Medication List: was personally reviewed by me Laboratory Data Attestation: I reviewed the patient's lab results. 09/02/24 16:02 09/02/24 16:02 Lab Results 09/02/24 09/02/24 Range/Units 15:00 16:02 WBC 11.24 H (4.8-10.8) K/ul RBC 4.21 (4.20-5.40) M/uL Hgb 12.3 (12.0-16.0) g/dl Hct 36.5 L (37.0-47.0) % MCV 86.7 (80.0-100.0) fL MCH 29.2 (25.0-34.0) pg MCHC 33.7 (32.0-36.0) g/dL RDW Std Deviation 41.5 (36.4-46.3) fL RDW Coeff of Andres 13.4 (11.5-14.5) % Plt Count 129 L (130-400) K/uL MPV 10.6 (9.4-12.4) fL Immature Gran % (Auto) 1.4 % Neut % (Auto) 76.6 % Lymph % (Auto) 14.5 % Greenlee % (Auto) 6.9 % Eos % (Auto) 0.1 % Baso % (Auto) 0.5 % Neut # (Auto) 8.61 H (1.40-6.50) K/uL Lymph # (Auto) 1.63 (1.20-3.40) K/uL Greenlee # (Auto) 0.77 H (0.11-0.59) K/uL Eos # (Auto) 0.01 (0.00-0.50) K/uL Baso # (Auto) 0.06 (0.00-0.20) K/uL Immature Gran # (Auto) 0.16 (0.01-0.20) K/uL Toxic Granulation 1+ Sodium 136 (136-145) mmol/L Potassium 3.2 L (3.5-5.1) mmol/L Chloride 100 (98-107) mmol/L Carbon Dioxide 30 (21-32) mmol/L Anion Gap 6 (3-11) BUN 2 L (6-23) mg/dl Creatinine < 0.20 L (0.6-1.2) mg/dl Est Cr Clr Drug Dosing 426.0 ml/min eGFR Not Reportable BUN/Creatinine Ratio TNP Glucose 129 H (70-99(Fasting)) mg/dl Lactate 1.1 (0.4-2.0) mmol/L Calcium 9.3 (8.6-10.3) mg/dl Magnesium 1.9 (1.7-2.4) mg/dl Total Bilirubin 0.8 (0.2-1.0) mg/dl Direct Bilirubin 0.1 (0-0.2) mg/dl AST 11 L (13-39) U/L ALT 11 (7-52) U/L Alkaline Phosphatase 76 (34-104) U/L Troponin I High Sens < 2.3 (0-14) pg/ml Total Protein 6.7 (6.0-8.3) gm/dl Albumin 4.1 (3.4-5.0) gm/dl Procalcitonin 1.21 H (0-0.5) ng/ml Adenovirus (PCR) Not Detected (NotDetected) B. pertussis DNA (PCR) Not Detected (NotDetected) B.parapertussis DNA PCR Not Detected (NotDetected) C. pneumoniae DNA (PCR) Not Detected (NotDetected) Coronavirus OC43 (PCR) Not Detected (NotDetected) Coronavirus HKU1 (PCR) Not Detected (NotDetected) Coronavirus 229E (PCR) Not Detected (NotDetected) SARS-CoV-2 (PCR) Not Detected (NotDetected) Coronavirus NL63 (PCR) Not Detected (NotDetected) Human Metapneumovir PCR Not Detected (NotDetected) Influenza Type A (PCR) Not Detected (NotDetected) Influenza Type B (PCR) Not Detected (NotDetected) M. pneumoniae (PCR) Not Detected (NotDetected) Parainfluenza 1 (PCR) Not Detected (NotDetected) Parainfluenza 2 (PCR) Not Detected (NotDetected) Parainfluenza 3 (PCR) Not Detected (NotDetected) Parainfluenza 4 (PCR) Not Detected (NotDetected) RSV (PCR) Not Detected (NotDetected) Entero/Rhino (PCR) Not Detected (NotDetected) Administered Medications Albuterol (Albut/Ipratrop 3mg/0.5mg Neb 3 Ml Vial) 3 ml NEB Q6R [facility]; Protocol Stop: 10/02/24 18:59 Last Admin: 09/02/24 20:06 Dose: 3 ml Documented By: MIHAELA Ascorbic Acid (Ascorbic Acid 500 Mg Tab) 1,000 mg PO BID [facility] Stop: 10/02/24 20:59 Last Admin: 09/02/24 21:58 Dose: 1,000 mg Documented By: CHANDRAKANT Baclofen (Baclofen 20 Mg Tab) 20 mg PO 0400,1000,1600,2200 [facility] Stop: 10/02/24 21:59 Last Admin: 09/02/24 21:59 Dose: 20 mg Documented By: CHANDRAKANT Baclofen (Baclofen 10 Mg Tab) 10 mg PO 0400,1000,1600,2200 [facility] Stop: 10/02/24 21:59 Last Admin: 09/02/24 21:58 Dose: 10 mg Documented By: CHANDRAKANT Dantrolene Sodium (Dantrolene Sodium 25 Mg Cap) 100 mg PO TID [facility] Stop: 10/02/24 20:59 Last Admin: 09/02/24 21:59 Dose: 100 mg Documented By: CHANDRAKANT Gabapentin (Gabapentin 600 Mg Tab) 600 mg PO 0400,1000,1600,2200 [facility] Stop: 10/02/24 21:59 Last Admin: 09/02/24 21:59 Dose: 600 mg Documented By: CHANDRAKANT Gabapentin (Gabapentin 300 Mg Cap) 300 mg PO 0400,1000,1600,2200 [facility] Stop: 10/02/24 21:59 Last Admin: 09/02/24 21:59 Dose: 300 mg Documented By: CHANDRAKANT Guaifenesin (Guaifenesin 600 Mg Tabcr) 600 mg PO BID [facility] Stop: 10/02/24 20:59 Last Admin: 09/02/24 21:59 Dose: 600 mg Documented By: CHANDRAKANT Piperacillin Sod/Tazobactam Sod (Zosyn) 4.5 gm in 100 mls @ 25 mls/hr IV Q8H [facility]; Protocol Stop: 09/07/24 21:59 Last Admin: 09/02/24 21:58 Dose: 25 mls/hr Documented By: CHANDRAKANT Methenamine Hippurate (Methenamine Hippurate 1 Gm Tab) 1 gm PO BID [facility] Stop: 10/02/24 20:59 Last Admin: 09/02/24 21:58 Dose: 1 gm Documented By: CHANDRAKANT Morphine Sulfate (Morphine Sulfate Cr 15 Mg Tabcr) 15 mg PO AMHS MIGUEL Stop: 09/16/24 20:59 Last Admin: 09/02/24 22:02 Dose: 15 mg Documented By: CHANDRAKANT Discontinued Medications Albuterol (Albut/Ipratrop 3mg/0.5mg Neb 3 Ml Vial) 6 ml NEB NOW STA; Protocol Stop: 09/02/24 14:30 Last Admin: 09/02/24 14:46 Dose: 6 ml Documented By: [id number] Azithromycin (Azithromycin 250 Mg Tab) 500 mg PO NOW ONE Stop: 09/02/24 14:31 Last Admin: 09/02/24 16:34 Dose: 500 mg Documented By: CHUY Bojorquez Syrup (Bojorquez Syrup 5 Ml Udp) 5 ml PO ONE STA Stop: 09/02/24 14:32 Last Admin: 09/02/24 16:38 Dose: Not Given Documented By: CHUY Dantrolene Sodium (Dantrolene Sodium 25 Mg Cap) 100 mg PO NOW STA Stop: 09/02/24 16:36 Last Admin: 09/02/24 17:11 Dose: Not Given Documented By: CHUY Duloxetine HCl (Duloxetine Hcl 60 Mg Cap) 60 mg PO NOW STA Stop: 09/02/24 16:36 Last Admin: 09/02/24 17:11 Dose: Not Given Documented By: CHUY Gabapentin (Gabapentin 600 Mg Tab) 900 mg PO NOW STA Stop: 09/02/24 16:36 Last Admin: 09/02/24 17:08 Dose: 900 mg Documented By: CHUY Sodium Chloride (Nss) 1,000 mls @ 999 mls/hr IV .Q1H1M [facility] Stop: 09/02/24 16:30 Last Admin: 09/02/24 21:57 Dose: 999 mls/hr Documented By: Infusion: 09/02/24 17:45 Dose: Infused Documented By: Admin: 09/02/24 16:32 Dose: 999 mls/hr Documented By: CHUY Piperacillin Sod/Tazobactam Sod (Zosyn) 4.5 gm in 100 mls @ 200 mls/hr IV NOW ONE; Protocol Stop: 09/02/24 14:59 Last Infusion: 09/02/24 17:30 Dose: Infused Documented By: Admin: 09/02/24 16:32 Dose: 200 mls/hr Documented By: CHUY Morphine Sulfate (Morphine Sulfate 2 Mg/Ml Carp) 2 mg IV NOW STA Stop: 09/02/24 16:41 Last Admin: 09/02/24 17:10 Dose: 2 mg Documented By: CHUY Potassium Chloride (Potassium Chloride Crtab 20 Meq Tabcr) 20 meq PO NOW STA Stop: 09/02/24 17:07 Last Admin: 09/02/24 17:27 Dose: Not Given Documented By: CHUY Vancomycin HCl (Vancomycin Hcl 125 Mg/2.5ml Soln) 125 mg PO ONE STA Stop: 09/02/24 14:32 Last Admin: 09/02/24 16:38 Dose: Not Given Documented By: CHUY Imaging Data Radiologist's Impression: Chest X-Ray 09/02/24 14:27 Chest radiograph, one view History: Sepsis. Comparison: 27 August 2024. Findings: Right chest port catheter remains in place. Partially included cervical thoracic fusion hardware again noted. Increasing obscuration of the right heart border and poorly defined right hemidiaphragm. Similar findings of the descending thoracic aorta and left hemidiaphragm. Poorly defined left costophrenic angle. Impression: Interval nonspecific multisegmental bibasilar atelectasis and/or consolidation with likely small effusions. Pneumonia not excluded. Electronically signed by Brendon Coello 09-02-2024 3:11 PM Discharge Plan Visit Data Chief Complaint: Flu Like Symptoms Stated Complaint: HAS PNEUMONIA, NOT IMPROVING OVER LAST WEEK ED Provider: Yosvany Page Discharge Problem: Acute hypoxic respiratory failure, Right lower lobe pneumonia, Quadriplegia, Acute hypokalemia Patient Disposition: Admitted As Inpatient Discharge Instructions Interventions: ED Discharge Assessment Last Done: 09/02/24 17:39 Discharge Problem: Right lower lobe pneumonia Qualifiers: Pneumonia type: due to unspecified organism Qualified Code(s): J18.9 - Pneumonia, unspecified organism
[2024-09-02] MEDS: ALBUT/IPRATROP 3MG/0.5MG NEB 3 ML VIAL NEB STA (14:46)
--- NOTE | 2024-09-02 15:11 | XRay Report ---
Chest radiograph, one view History: Sepsis. Comparison: 27 August 2024. Findings: Right chest port catheter remains in place. Partially included cervical thoracic fusion hardware again noted. Increasing obscuration of the right heart border and poorly defined right hemidiaphragm. Similar findings of the descending thoracic aorta and left hemidiaphragm. Poorly defined left costophrenic angle. Impression: Interval nonspecific multisegmental bibasilar atelectasis and/or consolidation with likely small effusions. Pneumonia not excluded. Electronically signed by Brendon Coello 09-02-2024 3:11 PM
[2024-09-02 16:28] LABS: Adenovirus PCR Not Detected (NotDetected); Bordetella parapertussis PCR Not Detected (NotDetected); Bordetella pertussis PCR Not Detected (NotDetected); Chlamydia pneumoniae PCR Not Detected (NotDetected); Coronavirus 229E PCR Not Detected (NotDetected); Coronavirus CoV-2 (COVID19)PCR Not Detected (NotDetected); Coronavirus HKU1 PCR Not Detected (NotDetected); Coronavirus NL63 PCR Not Detected (NotDetected); Coronavirus OC43PCR Not Detected (NotDetected); Human Metapneumovirus PCR Not Detected (NotDetected); Influenza A PCR Not Detected (NotDetected); Influenza B PCR Not Detected (NotDetected); Mycoplasma pneumoniae PCR Not Detected (NotDetected); Parainfluenza Virus 1 PCR Not Detected (NotDetected); Parainfluenza Virus 2 PCR Not Detected (NotDetected); Parainfluenza Virus 3 PCR Not Detected (NotDetected); Parainfluenza Virus 4 PCR Not Detected (NotDetected); Respiratory Syncytial VirusPCR Not Detected (NotDetected); Rhinovirus/Enterovirus PCR Not Detected (NotDetected)
[2024-09-02] MEDS: SODIUM CHLORIDE 0.9% 1,000 ML IV SCH (16:32)
[2024-09-02] MEDS: PIPERACILLIN/TAZOBACTAM 4.5 GM/100 ML BAG IV ONE (16:32)
[2024-09-02] MEDS: AZITHROMYCIN 250 MG TAB PO ONE (16:34)
[2024-09-02] MEDS: VANCOMYCIN HCL 125 MG/2.5ML SOLN PO STA (16:38)
[2024-09-02] MEDS: CHERRY SYRUP 5 ML UDP PO STA (16:38)
[2024-09-02 16:44] LABS: Alanine Aminotransferase 11 U/L (7-52); Albumin Level 4.1 gm/dl (3.4-5.0); Alkaline Phosphatase 76 U/L (34-104); Anion Gap 6 (3-11); Aspartate Aminotransferase 11 U/L (13-39); Bilirubin Direct 0.1 mg/dl (0-0.2); Bilirubin,Total 0.8 mg/dl (0.2-1.0); Blood Urea Nitrogen 2 mg/dl (6-23); Calcium 9.3 mg/dl (8.6-10.3); Carbon Dioxide 30 mmol/L (21-32); Chloride 100 mmol/L (98-107); Glucose 129 mg/dl (70-99(Fasting)); Magnesium 1.9 mg/dl (1.7-2.4); Potassium 3.2 mmol/L (3.5-5.1); Sodium 136 mmol/L (136-145); Total Protein 6.7 gm/dl (6.0-8.3)
[2024-09-02 16:46] LABS: Hematocrit (blood only) 36.5 % (37.0-47.0); Hemoglobin 12.3 g/dl (12.0-16.0); Mean Corpuscular Hemoglobin 29.2 pg (25.0-34.0); Mean Corpuscular Hgb Conc 33.7 g/dL (32.0-36.0); Mean Corpuscular Volume 86.7 fL (80.0-100.0); Mean Platelet Volume 10.6 fL (9.4-12.4); Platelet Count 129 K/uL (130-400); RDW Coefficient of Variation 13.4 % (11.5-14.5); RDW Standard Deviation 41.5 fL (36.4-46.3); Red Blood Count 4.21 M/uL (4.20-5.40); White Blood Count 11.24 K/ul (4.8-10.8)
[2024-09-02 16:54] LABS: Basophils # (auto) 0.06 K/uL (0.00-0.20); Basophils % (auto) 0.5 %; Eosinophils # (auto) 0.01 K/uL (0.00-0.50); Eosinophils % (auto) 0.1 %; Immature Granulocytes # (auto) 0.16 K/uL (0.01-0.20); Immature Granulocytes % (auto) 1.4 %; Lymphocytes # (auto) 1.63 K/uL (1.20-3.40); Lymphocytes % (auto) 14.5 %; Monocytes # (auto) 0.77 K/uL (0.11-0.59); Monocytes % (auto) 6.9 %; Neutrophils # (auto) 8.61 K/uL (1.40-6.50); Neutrophils % (auto) 76.6 %; Toxic Granulation 1+
[2024-09-02 16:55] LABS: Troponin I High Sensitivity < 2.3 pg/ml (0-14)
[2024-09-02] MEDS: GABAPENTIN 600 MG TAB PO STA (17:08)
[2024-09-02] MEDS: MoRPHine SULFATE 2 MG/ML CARP IV STA (17:10)
[2024-09-02] MEDS: DULoxetine HCL 60 MG CAP PO STA (17:11)
[2024-09-02] MEDS: DANTROLENE SODIUM 25 MG CAP PO STA (17:11)
--- NOTE | 2024-09-02 17:24 | History & Physical Report ---
Date of Service September 02, 2024 Assessment & Plan (1) Acute hypoxic respiratory failure: (2) Bilateral pneumonia: (3) Stage III pressure ulcer of left ankle: (4) Restrictive lung mechanics due to neuromuscular disease: Plan 33-year-old F with PMH of cervical spine injury with quadriplegia, DVT on Xarelto, recurrent/chronic pressure ulcer status post debridement and hamstring flap closure May 2021, anxiety, depression, spastic neurogenic bladder status suprapubic catheter, history of recurrent UTI presented to the ED 2/2 worsening cough and hypoxia for several days. 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 admit to PCU IV zosyn and oral azithromycin MRSA screen pulm toilet with FV, ISP, pts own cough assist, chest percussion therapy [facility] consult pulm as pt is well known to them given her significant resp status Pt does not meet sepsis criteria per guidelines but clinically pt appears septic await blood and urine cultures #Hx of Cdiff place on oral vanco daily, pt can't tolerate liquid so I am asking her mother to bring in her tablet supply from home #Cervical Cspine Injury with Quadriplegia #History of DVT on Xarelto #Recurrent/chronic pressure ulcer status post debridement and hamstring flap closure May 2021, q2hr repo, waffle boots #Chronic Stage III pressure ulcer to left ankle POA: daily santyl, consult wound care #Anxiety/Depression #Spastic neurogenic bladder status suprapubic catheter and bowel: pt requires nightly enemas and disimpaction, suprapubic cath exchanged 08/17 with botox inj #History of recurrent UTI: continue Metamine hippurate Other chronic medical conditions: As listed in HPI, continue with/resume home meds as and when able. DVT prophylaxis Patient on Xarelto for history of DVT Full code Dispo: admit to PCU Pt was seen and examined in collaboration with Dr. Griffiths, please see addendum I spent a total of 76 minutes coordinating, documenting and providing care for this patient excluding time spent in the performance of separately billed services or time spent by another provider/QHP. History of Present Illness Chief Complaint: Worsening cough and hypoxia x several days. Primary Care Provider: Wade Lacy MD 33-year-old F with PMH of cervical spine injury with quadriplegia, DVT on Xarelto, recurrent/chronic pressure ulcer status post debridement and hamstring flap closure May 2021, anxiety, depression, spastic neurogenic bladder status suprapubic catheter, history of recurrent UTI presented to the ED 2/2 worsening cough and hypoxia for several days. History obtained from patient, mother bedside and external chart reviewed. Of significance patient was seen in ED on 08/27 secondary to sore throat and development of cough. At that time there was concern for possible right lower lobe pneumonia and she was discharged on oral Augmentin. Her symptoms have persisted including a worsening cough, congestion and oxygen saturations in the low 80s. Despite using her CoughAssist at home and nebulizer treatment persisted and therefore she presented to ED today. She did have a temp of one 1.3 prior to arrival per mother. She complains of feeling chilled, sweats, chest pain with coughing, shortness of breath and overall poor appetite. She has been drinking fluids okay. She been taking her medications normally. She has an overall loose stool. She has to do an enema and disimpaction every night because of her quadriplegic status. In ED patient was hypoxic requiring supplemental oxygen via nasal cannula. Although she technically does not meet sepsis criteria she does appear to be clinically ill and I am suspicious for sepsis. She received IV Zosyn as well as oral azithromycin in the ED. Blood cultures were also obtained. Allergies Allergy/AdvReac Type Severity Reaction Status Date / Time cefepime Allergy Severe Anaphylaxis Verified 08/27/24 17:57 fentanyl Allergy Intermediate Itchiness, Verified 08/27/24 17:57 Rash levofloxacin Allergy Intermediate Rash Verified 08/27/24 17:57 vancomycin Allergy Intermediate Rash Verified 08/27/24 17:57 imipenem AdvReac Severe Seizure Verified 08/27/24 17:57 Home Medications Medication Instructions Recorded Confirmed Type ascorbic acid (vitamin C) 1,000 mg 1 g PO BID 03/07/18 09/02/24 History tablet dantrolene 100 mg capsule 100 mg PO TID 03/07/18 09/02/24 History fluticasone propionate 50 2 spray intranasal QAM PRN 03/07/18 09/02/24 History mcg/actuation nasal allergies spray,suspension (Flonase Allergy Relief) lorazepam 0.5 mg tablet (Ativan) 0.5 mg PO Q8 PRN Anxiety 03/07/18 09/02/24 History rivaroxaban 20 mg tablet (Xarelto) 20 mg PO QAM 03/07/18 09/02/24 History nystatin 100,000 unit/gram topical 1 applic topical BID PRN Skin 03/18/18 09/02/24 History powder Irritation guaifenesin 600 mg tablet, 600 mg PO Q12H 04/06/18 09/02/24 History extended release 12 hr (Mucinex) baclofen 20 mg tablet 20 mg PO QID 12/28/18 09/02/24 History duloxetine 60 mg capsule,delayed 60 mg PO BID 02/02/19 09/02/24 History release (Cymbalta) baclofen 10 mg tablet 10 mg PO QID 09/25/19 09/02/24 History docusate sodium 283 mg/5 mL enema 283 mg FL HS 09/25/19 09/02/24 History (Enemeez) potassium chloride 10 mEq 10 meq PO BID 09/29/20 09/02/24 History capsule,extended release acetaminophen 500 mg tablet 1,000 mg PO Q6H PRN Fever Or Pain 01/07/21 09/02/24 History (Tylenol Extra Strength) epinephrine 0.3 mg/0.3 mL 0.3 mg (0.3 mL) IM ONCE PRN 01/07/21 09/02/24 Rx injection, auto-injector (EpiPen anaphylaxis #1 ea 2-Fam) oxycodone-acetaminophen 10 mg-325 1 tab PO Q6 PRN Pain 01/07/21 09/02/24 History mg tablet citric ac 1980.6 mg-glucono 59.4 30 ml irrigation 3XWK #900 mL 12/11/21 09/02/24 Rx mg-mag carb 980.4 mg/30 mL irrig.soln (Renacidin) hydroxyzine HCl 25 mg tablet 25 mg PO HS PRN hyperactivity 12/15/22 09/02/24 History Flutter Valve #1 ea 12/23/22 09/02/24 Rx Incentive Spirometer #1 ea 12/23/22 09/02/24 Rx morphine 15 mg tablet,extended 15 mg PO AMHS 11/27/23 09/02/24 History release aripiprazole 2 mg tablet (Abilify) 1 mg PO QAM 03/01/24 09/02/24 History gabapentin 300 mg capsule 300 mg PO QID 03/01/24 09/02/24 History gabapentin 600 mg tablet 600 mg PO QID 03/01/24 09/02/24 History trazodone 50 mg tablet 50 mg PO HS PRN prn 06/15/24 09/02/24 History docusate sodium 100 mg capsule 100 mg PO DAILY@1600 08/27/24 09/02/24 History methenamine hippurate 1 gram tablet 1 g PO BID 08/27/24 09/02/24 History norethindrone (contraceptive) 0.35 0.35 mg PO DAILY 08/27/24 09/02/24 History mg tablet (Jencycla) compressor, for nebulizer #1 ea 08/28/24 09/02/24 Rx ipratropium 0.5 mg-albuterol 3 mg 3 ml inhalation QID PRN wheezing 08/28/24 09/02/24 Rx (2.5 mg base)/3 mL nebulization #180 mL soln nebulizer accessories (A.I.R.S. 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 Chronic atelectasis Chronic cough Suprapubic catheter [place] [facility] [place] Encounter for pre-operative examination Quadriplegia (Acute) Allergy to multiple antibiotics Nausea & vomiting Chronic hypotension 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) Follows with wound clinic- currently undergoing hyperbaric oxygen treatments Neurogenic dysfunction of the urinary bladder (Acute) Anxiety Autonomic dysreflexia Depression Medical History Open wound of right hand [facility] Stage III pressure ulcer of ankle Left - [facility] Neuromuscular respiratory weakness [facility] History of MRSA infection per PAT neurology director, 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 ago Autonomic dysreflexia History of Clostridioides difficile colitis per PAT RN notation "resolved, recently tested and negative" first entered into EMR 2022 History of cervical fracture History of DVT (deep vein thrombosis) upper [id number] into EMR in 2014 jail (current) use of anticoagulants Xarelto Pressure ulcer of toe of left foot following with wound clinic Quadriplegia history C4 fracture Restrictive lung mechanics due to neuromuscular disease atelectasis - [facility] Suprapubic catheter Former smoker Anxiety and depression Chronic osteomyelitis sacrum per previous records Bladder stones Hx of pneumothorax Hx with chest tube. Treated at [facility]> 6 ys ago Environmental allergies Seasonal and environmental allergies History of seizure 2013 - due to BP issue and autonomic dysreflexia > none since Port-A-Cath in place 06/15/18 power port Neurogenic bladder Surgical History History of fusion of cervical spine ACDF "C5-C7, C3-T2" Hx of surgical procedure Debridement of Stage 4 Ischial Pressure Ulcer with Hamstring Flap Closure History of myringotomy Bilateral Status post amputation of toe second toe, right foot. 07/2019. S/P cystoscopy with botox injections Hx of wisdom tooth extraction History of urostomy Subsequent Removal Hx of tracheostomy since removed History of bowel resection 2/ Obstruction/Scar Tissue History of appendectomy S/P thoracentesis PEG (percutaneous endoscopic gastrostomy) status Subsequent Removal Family History Father Diabetes Brother Depression Other No family history of adverse response to anesthesia Social History Smoking Status: Former smoker Tobacco Type: Cigarettes Age Started Using Tobacco: 18; Age Quit Using Tobacco: 28; packs per day: 1; Second Hand Exposure: No; Do You Dip or Chew Tobacco: No; Hx Alcohol Use: No Hx Substance Use: No Preferred Language: Slovak Communication Ability: Effective Visual Impairment: Limited Hearing Ability: Normal Records Management Director Required: No Beliefs That Will Affect Care: None marital status: Single Current Living Situation: Family Current Living Situation Comment: Mother And Father current occupational status: disabled How many Children do You have: 0 Feels Safe at Home: Yes Safety Concerns: Feels Safe At This Time Childhood Exposure to Second-Hand Smoke: No Diet: regular during the past year weight has: remained stable Physical Activity Frequency: Does not Exercise Seatbelt Use: always Assistive Devices: Hospital Bed and Oxygen - Continuous Review of Systems Review of Systems: All systems reviewed & are unremarkable except as noted in HPI & below Physical Exam Physical Exam: constitutional: Toxic appearing F, lying in bed, vitals as above, NAD, sitting up in bed, answers questions approp Head: Normocephalic, Atraumatic Eyes: PERRL, conjunctivae normal, anicteric sclerae ENMT: external ear and nose normal, oropharynx normal Neck: trachea midline, no thyromegaly normal visual inspection Respiratory: normal respiratory effort, B/L rhonchi throughout with poor insp status given quad status, no wheeze. Normal insp/exp effort, no accessory muscle use Cardiovascular: RRR, no murmur, LE non pitting edema Vessels: no JVD or carotid bruit Chest: normal inspection of chest Abdomen: normal bowel sounds, soft, nontender, no hepatosplenomegaly Musculoskeletal: no cyanosis or clubbing, +quadraplegia with upper ext contacture Skin: +L lateral foot wound, no surrounding erythema, some bloody drainage on dressing, no rashes, warm and dry normal turgor Neurologic: Pno face palsy, no dysarthria CN's II-XI intact bilaterally and moves all extremities Psychiatric: A+Ox3, euthymic affect Results & Data Results & Data Vital Signs (Past 12 Hours) Vital Signs Temp Pulse Pulse Resp BP BP Pulse Ox 09/02/24 17:16 76 09/02/24 17:00 85 16 99/67 L 94 09/02/24 16:00 69 16 111/71 96 09/02/24 15:49 73 17 97 09/02/24 15:49 79 17 92/64 L 96 09/02/24 14:53 68 17 95 09/02/24 14:51 68 17 95 09/02/24 14:06 36.6 C 84 18 87/57 L 94 O2 Del Method O2 Flow Rate FiO2 09/02/24 17:16 09/02/24 17:00 Nasal Cannula 3 09/02/24 16:00 BiPAP 09/02/24 15:49 BiPAP 09/02/24 15:49 BiPAP 09/02/24 14:53 BiPAP 35 09/02/24 14:51 35 09/02/24 14:06 Room Air Laboratory Results I have independently reviewed and interpreted patient's admitting labs including CBC, CMP, PTT, PT/INR, mag and troponin. Diagnostic Findings Chest X-Ray 09/02/24 14:27 Chest radiograph, one view History: Sepsis. Comparison: 27 August 2024. Findings: Right chest port catheter remains in place. Partially included cervical thoracic fusion hardware again noted. Increasing obscuration of the right heart border and poorly defined right hemidiaphragm. Similar findings of the descending thoracic aorta and left hemidiaphragm. Poorly defined left costophrenic angle. Impression: Interval nonspecific multisegmental bibasilar atelectasis and/or consolidation with likely small effusions. Pneumonia not excluded. Electronically signed by Brendon Coello 09-02-2024 3:11 PM Medications Administered Medication List Discontinued Medications Albuterol (Albut/Ipratrop 3mg/0.5mg Neb 3 Ml Vial) 6 ml NEB NOW STA; Protocol Stop: 09/02/24 14:30 Last Admin: 09/02/24 14:46 Dose: 6 ml Documented By: [id number] Azithromycin (Azithromycin 250 Mg Tab) 500 mg PO NOW ONE Stop: 09/02/24 14:31 Last Admin: 09/02/24 16:34 Dose: 500 mg Documented By: CHUY Bojorquez Syrup (Bojorquez Syrup 5 Ml Udp) 5 ml PO ONE STA Stop: 09/02/24 14:32 Last Admin: 09/02/24 16:38 Dose: Not Given Documented By: CHUY Dantrolene Sodium (Dantrolene Sodium 25 Mg Cap) 100 mg PO NOW STA Stop: 09/02/24 16:36 Last Admin: 09/02/24 17:11 Dose: Not Given Documented By: CHUY Duloxetine HCl (Duloxetine Hcl 60 Mg Cap) 60 mg PO NOW STA Stop: 09/02/24 16:36 Last Admin: 09/02/24 17:11 Dose: Not Given Documented By: CHUY Gabapentin (Gabapentin 600 Mg Tab) 900 mg PO NOW STA Stop: 09/02/24 16:36 Last Admin: 09/02/24 17:08 Dose: 900 mg Documented By: CHUY Sodium Chloride (Nss) 1,000 mls @ 999 mls/hr IV .Q1H1M MIGUEL Stop: 09/02/24 16:30 Last Admin: 09/02/24 16:32 Dose: 999 mls/hr Documented By: CHUY Piperacillin Sod/Tazobactam Sod (Zosyn) 4.5 gm in 100 mls @ 200 mls/hr IV NOW ONE; Protocol Stop: 09/02/24 14:59 Last Admin: 09/02/24 16:32 Dose: 200 mls/hr Documented By: CHUY Morphine Sulfate (Morphine Sulfate 2 Mg/Ml Carp) 2 mg IV NOW STA Stop: 09/02/24 16:41 Last Admin: 09/02/24 17:10 Dose: 2 mg Documented By: CHUY Vancomycin HCl (Vancomycin Hcl 125 Mg/2.5ml Soln) 125 mg PO ONE STA Stop: 09/02/24 14:32 Last Admin: 09/02/24 16:38 Dose: Not Given Documented By: CHUY ECG Additional Comments: I have independently reviewed and interpreted patient's admitting EKG which revealed: 73, NSR COVID-19 Results Results COVID-19 Adm Lab Results: RBC 4.21 M/uL (4.20-5.40) 09/02/24 WBC 11.24 K/ul (4.8-10.8) H 09/02/24 Hgb 12.3 g/dl (12.0-16.0) 09/02/24 Hct 36.5 % (37.0-47.0) L 09/02/24 Plt Count 129 K/uL (130-400) L 09/02/24 Neutrophils (%) (Auto) 76.6 % 09/02/24 Lymphocytes (%) (Auto) 14.5 % 09/02/24 Monocytes # (Auto) 0.77 K/uL (0.11-0.59) H 09/02/24 Eosinophils # (Auto) 0.01 K/uL (0.00-0.50) 09/02/24 Immature Granulocyte % (Auto) 1.4 % 09/02/24 Neutrophils # (Auto) 8.61 K/uL (1.40-6.50) H 09/02/24 Lymphocytes # (Auto) 1.63 K/uL (1.20-3.40) 09/02/24 Monocytes # (Auto) 0.77 K/uL (0.11-0.59) H 09/02/24 Eosinophils # (Auto) 0.01 K/uL (0.00-0.50) 09/02/24 Basophils # (Auto) 0.06 K/uL (0.00-0.20) 09/02/24 Immature Granulocyte # (Auto) 0.16 K/uL (0.01-0.20) 5 Toxic Granulation 1+ 09/02/24 Na 136 mmol/L (136-145) 09/02/24 K 3.2 mmol/L (3.5-5.1) L 09/02/24 Cl 100 mmol/L (98-107) 09/02/24 CO2 30 mmol/L (21-32) 09/02/24 Anion Gap 6 (3-11) 09/02/24 BUN 2 mg/dl (6-23) L 09/02/24 Creatinine < 0.20 mg/dl (0.6-1.2) L 09/02/24 BUN/Creatinine Ratio TNP 09/02/24 Glucose Level 129 mg/dl (70-99(Fasting)) H 09/02/24 Ca 9.3 mg/dl (8.6-10.3) 09/02/24 Total Bilirubin 0.8 mg/dl (0.2-1.0) 09/02/24 Direct Bilirubin 0.1 mg/dl (0-0.2) 09/02/24 AST/SGOT 11 U/L (13-39) L 09/02/24 ALT/SGPT 11 U/L (7-52) 09/02/24 Alkaline Phosphatase 76 U/L (34-104) 09/02/24 Total Protein 6.7 gm/dl (6.0-8.3) 09/02/24 Albumin 4.1 gm/dl (3.4-5.0) 09/02/24 Procalcitonin 1.21 ng/ml (0-0.5) H 09/02/24 Adenovirus (PCR) Not Detected (NotDetected) 09/02/24 B. parapertussis DNA (PCR) Not Detected (NotDetected) 10/22 B. pertussis DNA (PCR) Not Detected (NotDetected) 09/02/24 C. pneumoniae DNA (PCR) Not Detected (NotDetected) Coronavirus Type OC43 (PCR) Not Detected (NotDetected) 10/22 Coronavirus Type HKU1 (PCR) Not Detected (NotDetected) 10/22 Coronavirus Type 229E (PCR) Not Detected (NotDetected) 10/22 COVID-19 PCR Not Detected (NotDetected) 09/02/24 Coronavirus Type NL63 (PCR) Not Detected (NotDetected) 10/22 Human Metapneumovirus (PCR) Not Detected (NotDetected) 10/22 Influenza Virus Type A (PCR) Not Detected (NotDetected) Influenza Virus Type B (PCR) Not Detected (NotDetected) M. pneumoniae (PCR) Not Detected (NotDetected) 09/02/24 Parainfluenza Type 1 (PCR) Not Detected (NotDetected) 10/22 Parainfluenza Type 2 (PCR) Not Detected (NotDetected) 10/22 Parainfluenza Type 3 (PCR) Not Detected (NotDetected) 10/22 Parainfluenza Type 4 (PCR) Not Detected (NotDetected) 10/22 RSV (PCR) Not Detected (NotDetected) 09/02/24 Enterovirus/Rhinovirus (PCR) Not Detected (NotDetected) Chest X-Ray 09/02/24 Code Status & VTE Plan Code Status FULL CODE VTE Prophylaxis Plan VTE Prophylaxis will be ordered: No Reason for no VTE drug order: Treatment not indicated Supervising Physician Co-Signing Physician Notes Pt was seen and examined by myself, Katja Griffiths MD on the day of service. Care was coordinated with Elenita Beebe PA-C. 33yo quadraplegic with concern for pneumonia. Pt states unable to cough up mucus, concerned. Worsening symptoms at home Known to [facility] [place] [facility]. Pulm toilet, Zosyn and azithromycin, Pulm consult Otherwise as above. I spent a total [id number] coordinating, documenting, and providing care for this patient excluding time spent in the performance of separately billed services
[2024-09-02] MEDS: POTASSIUM CHLORIDE CRTAB 20 MEQ TABCR PO STA (17:27)
[2024-09-02] MEDS ORDERED: FLUTICASONE PROPIONATE NA SPR 16 GM BTL PRN (18:15)
[2024-09-02] MEDS ORDERED: LORazepam 0.5 MG TAB PO PRN (18:15)
[2024-09-02] MEDS ORDERED: ACETAMINOPHEN 325 MG TAB PO PRN (18:15)
[2024-09-02] MEDS ORDERED: oxyCODONE/ACETAMINOPHEN 10-325 TAB PO PRN (18:15)
[2024-09-02] MEDS: ALBUT/IPRATROP 3MG/0.5MG NEB 3 ML VIAL NEB SCH (20:06)
[2024-09-02] MEDS: PIPERACILLIN/TAZOBACTAM 4.5 GM/100 ML BAG IV SCH (21:58)
[2024-09-02] MEDS: ASCORBIC ACID 500 MG TAB PO SCH (21:58)
[2024-09-02] MEDS: METHENAMINE HIPPURATE 1 GM TAB PO SCH (21:58)
[2024-09-02] MEDS: BACLOFEN 10 MG TAB PO SCH (21:58)
[2024-09-02] MEDS: BACLOFEN 20 MG TAB PO SCH (21:59)
[2024-09-02] MEDS: guaiFENesin 600 MG TABCR PO SCH (21:59)
[2024-09-02] MEDS: DANTROLENE SODIUM 25 MG CAP PO SCH (21:59)
[2024-09-02] MEDS: GABAPENTIN 300 MG CAP PO SCH (21:59)
[2024-09-02] MEDS: GABAPENTIN 600 MG TAB PO SCH (21:59)
[2024-09-02] MEDS: MoRPHine SULFATE CR 15 MG TABCR PO SCH (22:02)
[2024-09-02] MEDS: NSS + 20MEQ KCL 20 MEQ/1,000 ML BAG IV SCH (22:11)
[2024-09-02] MEDS: MoRPHine SULFATE 2 MG/ML CARP IV PRN (22:35)
[2024-09-02] MEDS: ONDANSETRON INJ 2 MG/ML 2 ML VIAL IV PRN (22:49)
[2024-09-02 23:10] LABS: Appearance Urine Clear (Clear); Bilirubin Urine Negative (Negative); Blood Urine Negative (Negative); Color Urine Yellow; Glucose Urine UA Negative (Negative); Ketones Urine Negative (Negative); Leukocyte Esterase Urine Negative (Negative); Nitrite Urine Negative (Negative); Protein Urine Negative (Negative); Specific Gravity Urine 1.002 (1.000-1.030); Urobilinogen Urine Negative (Negative)
[2024-09-03 04:25] LABS: Hematocrit (blood only) 34.6 % (37.0-47.0); Hemoglobin 11.4 g/dl (12.0-16.0); Mean Corpuscular Hemoglobin 29.3 pg (25.0-34.0); Mean Corpuscular Hgb Conc 32.9 g/dL (32.0-36.0); Mean Corpuscular Volume 88.9 fL (80.0-100.0); Mean Platelet Volume 10.4 fL (9.4-12.4); Platelet Count 128 K/uL (130-400); RDW Coefficient of Variation 13.7 % (11.5-14.5); RDW Standard Deviation 44.4 fL (36.4-46.3); Red Blood Count 3.89 M/uL (4.20-5.40)
[2024-09-03 04:42] LABS: Alanine Aminotransferase 11 U/L (7-52); Albumin Globulin Ratio 1.5 (0.9-2); Albumin Level 3.7 gm/dl (3.4-5.0); Alkaline Phosphatase 78 U/L (34-104); Anion Gap 6 (3-11); Aspartate Aminotransferase 10 U/L (13-39); Bilirubin,Total 0.6 mg/dl (0.2-1.0); Blood Urea Nitrogen 2 mg/dl (6-23); Calcium 8.4 mg/dl (8.6-10.3); Carbon Dioxide 28 mmol/L (21-32); Chloride 105 mmol/L (98-107); Globulin 2.5 gm/dl (2.5-4.0); Glucose 112 mg/dl (70-99(Fasting)); Magnesium 1.8 mg/dl (1.7-2.4); Potassium 3.1 mmol/L (3.5-5.1); Sodium 139 mmol/L (136-145); Total Protein 6.2 gm/dl (6.0-8.3)
[2024-09-03] MEDS: POTASSIUM CHLORIDE CRTAB 20 MEQ TABCR PO STA (06:33)
[2024-09-03] MEDS: MAGNESIUM SULFATE / D5W 1 GM/100 ML BAG IV ONE (06:33)
[2024-09-03] MEDS: DULoxetine HCL 60 MG CAP PO SCH (08:49)
[2024-09-03] MEDS: ARIPiprazole 2 MG TAB PO SCH (08:52)
[2024-09-03] MEDS: AZITHROMYCIN 250 MG TAB PO SCH (08:53)
[2024-09-03] MEDS: VANCOMYCIN 125 MG PO SCH (08:54)
[2024-09-03] MEDS: POTASSIUM CHLORIDE CRTAB 20 MEQ TABCR PO ONE (09:00)
[2024-09-03] MEDS ORDERED: POTASSIUM CHLORIDE 10 MEQ TABCR PO SCH (09:00)
[2024-09-03] MEDS: oxyCODONE/ACETAMINOPHEN 10-325 TAB PO PRN ×2 (09:52→14:43)
[2024-09-03] MEDS ORDERED: LORazepam 0.5 MG TAB PO PRN (10:11)
--- NOTE | 2024-09-03 10:16 | Hospitalist Progress Note ---
Date of Service September 03, 2024 Assessment & Plan (1) Acute hypoxic respiratory failure: (2) Bilateral pneumonia: (3) Stage III pressure ulcer of left ankle: (4) Acute hypokalemia: (5) Thrombocytopenia: (6) Suprapubic catheter: (7) Autonomic dysreflexia: (8) Neuromuscular respiratory weakness: (9) Restrictive lung mechanics due to neuromuscular disease: (10) Anxiety and depression: (11) Chronic pain syndrome: Plan Patient with chronic restrictive lung disease due to her neuromuscular disease high risk for pneumonia presents with acute hypoxic respiratory failure in the setting of findings consistent with pneumonia. Continue Zosyn, no need for Zithromax Continue respiratory treatments Increase mucolytic dosing Patient stating having increased pain with her acute illness. Increase her long-acting morphine. Increased frequency of Percocet, utilize lorazepam to help with her anxiety associated with her pain as well. Continue other home medications as prescribed Admission and Anticipated Discharge Date Admission Date: September 02, 2024 Subjective Patient with her chronic pain issues. States breathing might be a little bit better. Physical Exam Physical Exam: Constitutional: Alert, sitting in power wheelchair, nontoxic HEENT: Mucous membranes moist. Lungs: Decreased breath sounds diffuse rhonchi and crackles CV: S1-S2, regular Abdomen: Soft, nontender, nondistended Extremities: No significant edema Neuro: Baseline quadriplegia Psych: Cooperative, normal mood Results & Data Results & Data Vital Signs (Past 12 Hours) Vital Signs Temp Pulse Pulse Resp BP BP Pulse Ox 09/03/24 07:36 95 H 20 94 09/03/24 07:13 36.9 C 66 19 120/85 98 09/03/24 06:17 61 108/68 09/03/24 04:00 37.0 C 65 15 120/72 97 09/03/24 00:14 66 18 95 09/02/24 23:46 66 09/02/24 23:33 09/02/24 23:02 36.8 C 96 H 17 125/83 96 O2 Del Method O2 Flow Rate 09/03/24 07:36 Nasal Cannula 1 09/03/24 07:13 Nasal Cannula 2 09/03/24 06:17 09/03/24 04:00 Nasal Cannula 3 09/03/24 00:14 Nasal Cannula 2 09/02/24 23:46 09/02/24 23:33 Nasal Cannula 3 09/02/24 23:02 Nasal Cannula 3 Diagnostic Findings Reviewed imaging, laboratory and diagnostic studies. Pertinent findings as below. CBC stable, WBCs 8.7 Potassium 3.1 MRSA screen negative C. difficile negative
[2024-09-03] MEDS: POTASSIUM CHLORIDE CRTAB 20 MEQ TABCR PO SCH (10:55)
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
--- NOTE | 2024-09-03 12:12 | Electrocardiogram Report ---
Test Reason : Blood Pressure : */* mmHG Vent. Rate : 73 BPM Atrial Rate : 73 BPM P-R Int : 126 ms QRS Dur : 82 ms QT Int : 398 ms P-R-T Axes : 73 117 27 degrees QTcB Int : 438 ms Normal sinus rhythm Nonspecific ST and T wave abnormality Abnormal ECG When compared with ECG of 12-Sep-2023 12:09, Vent. rate has increased by 30 bpm T wave inversion now evident in Inferior leads Confirmed by Florencio Infante ([id number]) on 09/03/2024 12:12:23 PM Referred By: REFERRED SELF Confirmed By: Florencio Infante
--- NOTE | 2024-09-03 12:19 | Electrocardiogram Report ---
Test Reason : Blood Pressure : */* mmHG Vent. Rate : 60 BPM Atrial Rate : 60 BPM P-R Int : 120 ms QRS Dur : 138 ms QT Int : 490 ms P-R-T Axes : 16 -68 92 degrees QTcB Int : 490 ms Sinus rhythm with Ventricular complexes and fusion complexes Left axis deviation Abnormal ECG When compared with ECG of 02-Sep-2024 15:45, Fusion complexes are now Present Ventricular complexes are now present Confirmed by Florencio Infante ([id number]) on 09/03/2024 12:18:53 PM Referred By: REFERRED SELF Confirmed By: Florencio Infante
[2024-09-03] MEDS: RIVAROXABAN 20 MG TAB PO SCH (14:57)
[2024-09-03] MEDS: DOCUSATE SODIUM 100 MG CAP PO SCH (14:59)
[2024-09-03] MEDS: guaiFENesin 600 MG TABCR PO SCH (21:48)
[2024-09-03] MEDS: MoRPHine SULFATE CR 15 MG TABCR PO SCH (21:49)
[2024-09-03] MEDS: NSS + 20MEQ KCL 20 MEQ/1,000 ML BAG IV ONE (23:43)
[2024-09-03] MEDS: HEPARIN 100 UNIT/ML 5ML FLUSH FLUSH PRN (23:57)
[2024-09-04] MEDS: SOD PHOSPHATE/SOD BIPHOSPHATE ENEMA 132 ML BTL PR STA (05:58)
[2024-09-04] MEDS ORDERED: POTASSIUM CHLORIDE 10 MEQ TABCR PO SCH (09:00)
[2024-09-04] MEDS ORDERED: COLLAGENASE OINT 30 GM TUBE EXT SCH (10:00)
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
[2024-09-04 11:33] LABS: Anion Gap 6 (3-11); Blood Urea Nitrogen 2 mg/dl (6-23); Calcium 8.4 mg/dl (8.6-10.3); Carbon Dioxide 29 mmol/L (21-32); Chloride 103 mmol/L (98-107); Glucose 110 mg/dl (70-99(Fasting)); Potassium 4.2 mmol/L (3.5-5.1); Sodium 138 mmol/L (136-145)
[2024-09-04 12:11] VITALS: TEMP 97.7
[2024-09-04 12:17] VITALS: BP 101/70
[2024-09-04 13:07] VITALS: PULSE 112; RESP 16; O2SAT 93
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
[2024-09-05] MEDS ORDERED: SOD PHOSPHATE/SOD BIPHOSPHATE ENEMA 132 ML BTL PR SCH (21:00)
== END 2024-09-04 14:10 | disposition home health service (06) | DRG 193 ==
LOC: ED 13:48 → 4W 16:54 → SUATTDRO 16:54 → 4W 17:39

== ENCOUNTER 2024-09-12 16:53 | Inpatient (IN) ==
[2024-09-12] MEDS: SODIUM CHLORIDE 0.9% 500 ML IV ONE (17:35)
[2024-09-12 17:38] LABS: Basophils # (auto) 0.03 K/uL (0.00-0.20); Basophils % (auto) 0.2 %; Eosinophils # (auto) 0.04 K/uL (0.00-0.50); Eosinophils % (auto) 0.3 %; Hematocrit (blood only) 36.9 % (37.0-47.0); Hemoglobin 12.3 g/dl (12.0-16.0); Immature Granulocytes # (auto) 0.07 K/uL (0.01-0.20); Immature Granulocytes % (auto) 0.5 %; Lymphocytes # (auto) 1.73 K/uL (1.20-3.40); Lymphocytes % (auto) 12.9 %; Mean Corpuscular Hemoglobin 28.7 pg (25.0-34.0); Mean Corpuscular Hgb Conc 33.3 g/dL (32.0-36.0); Mean Corpuscular Volume 86.2 fL (80.0-100.0); Mean Platelet Volume 9.7 fL (9.4-12.4); Monocytes # (auto) 0.82 K/uL (0.11-0.59); Monocytes % (auto) 6.1 %; Neutrophils # (auto) 10.71 K/uL (1.40-6.50); Platelet Count 172 K/uL (130-400); RDW Coefficient of Variation 13.9 % (11.5-14.5); RDW Standard Deviation 43.7 fL (36.4-46.3); Red Blood Count 4.28 M/uL (4.20-5.40)
--- NOTE | 2024-09-12 17:45 | History & Physical Report ---
Date of Service September 12, 2024 Assessment & Plan (1) Acute hypoxic respiratory failure: (2) Multifocal pneumonia: (3) Mucus plugging of bronchi: (4) Neuromuscular respiratory weakness: (5) Chronic fibrosis of lung: (6) Chronic pain syndrome: (7) Pressure ulcer of toe of left foot, stage 3: (8) Quadriplegia: (9) Anxiety: (10) Depression: (11) History of DVT (deep vein thrombosis): Plan This is a 33yo F with PMH of cervical spine injury in 2011 with quadriplegia, DVT on Xarelto, recurrent/chronic pressure ulcer status post debridement and hamstring flap closure May 2021, anxiety, depression, spastic neurogenic bladder status suprapubic catheter, history of recurrent UTI, history of c diff who was sent in by recommendation of wharf helper for IV antibiotics and bronchoscopy. Acute hypoxic respiratory failure Multifocal pneumonia Restrictive lung mechanics due to neuromuscular disease Recently admitted from 09/02- for RLL PNA and was discharged on Augmentin (completed 09/09), worsening overnight Saturating in mid-80s at home, improved to 94% on 3L NC Dr. Hunt ordered CTA chest today, revealing - R>L PNA with concurrent bilateral lobe atelectasis, R middle lobe collapse, infectious secretions or other debris within R mainstem bronchus and occlusion of the bilateral lower lobe bronchi. No definite sign of pulmonary embolism. Small bilateral lower lobe bronchi Directed to ED by pulm for IV abx and bronchoscopy in AM Continue IV Zosyn Chest Vest, Mom to bring CoughAssist, IS, Flutter valve, Mucinex BID, Duoneb QIDR MRSA swab, resp viral panel pending NPO at midnight Hold AM Xarelto Hx of Cdiff Patient's mom bringing in tablet supply from home to continue daily Cervical C-spine Injury with Quadriplegia Chronic pain syndrome Continue antispasmodics, pain regimen with morphine BID, PRN Percocet History of DVT Hold Xarelto for bronchoscopy in AM Recurrent/chronic pressure ulcer Status post debridement and hamstring flap closure May 2021, q2hr reposition, waffle boots Chronic Stage III pressure ulcer to left ankle POA Daily Santyl, consult wound care (dressing last changed this AM) Anxiety/Depression Continue Duloxetine, Aripiprazole HS, PRN Ativan Spastic neurogenic bladder status suprapubic catheter and bowel Requires nightly enemas and disimpaction, suprapubic cath care History of recurrent UTI Continue Metamine hippurate DVT Ppx: Holding AM Xarelto for procedure Code status: FULL PCP: Regino Dispo: Admitted to PCU Patient seen in collaboration with Dr. Cruz. Please see addendum. I spent a total of 75 minutes coordinating, documenting, and providing care for this patient excluding time spent in the performance of separately billed services or time spent by another provider/QHP. History of Present Illness Chief Complaint: SOB, sent from pulm Primary Care Provider: Wade Lacy MD This is a 33yo F with PMH of cervical spine injury in 2011 with quadriplegia, DVT on Xarelto, recurrent/chronic pressure ulcer status post debridement and hamstring flap closure May 2021, anxiety, depression, spastic neurogenic bladder status suprapubic catheter, history of recurrent UTI, history of c diff who was sent in by recommendation of wharf helper for IV antibiotics and bronchoscopy. Patient was recently admitted from 09/02- for RLL PNA and was discharged on Augmentin to complete course. Patient with CoughAssist at home, chest PT, flutter valve and IS. States she has felt better since discharge and completed her Augmentin course last weekend. Went to PCP visit yesterday for hospital follow up and felt okay until she returned home in the afternoon with a cough she is unable to clear on her own. Was up for a lot of the night with worsening SOB and cough. Oxygen saturations dropped to mid-80s today and patient's mother called Dr. Hunt, who ordered a CTA chest that revealed R>L PNA with concurrent bilateral lobe atelectasis, R middle lobe collapse, infectious secretions or other debris within R mainstem bronchus and occlusion of the bilateral lower lobe bronchi. No definite sign of pulmonary embolism. Small bilateral lower lobe bronchi. Dr. Hunt directed patient to hospital for IV abx and further care with planned bronchoscopy in AM. Patient currently saturating 94% on 3L NC O2. Denies F/C, CP hemoptysis, N/V, abd pain, dysuria, diarrhea or constipation. Having pleuritic pain on deep inspiration; RN about to give a dose of morphine in ED. No other mediation changes since previous admission. Already took PO vancomycin today (and is continuing daily through ). Due for enema this evening. Allergies Allergy/AdvReac Type Severity Reaction Status Date / Time cefepime Allergy Severe Anaphylaxis Verified 09/12/24 17:43 fentanyl Allergy Intermediate Itchiness, Verified 09/12/24 17:43 Rash levofloxacin Allergy Intermediate Rash Verified 09/12/24 17:43 vancomycin Allergy Intermediate Rash Verified 09/12/24 17:43 imipenem AdvReac Severe Seizure Verified 09/12/24 17:43 Home Medications Medication Instructions Recorded Confirmed Type ascorbic acid (vitamin C) 1,000 mg 1 g PO BID 03/07/18 09/12/24 History tablet dantrolene 100 mg capsule 100 mg PO TID 03/07/18 09/12/24 History fluticasone propionate 50 2 spray intranasal QAM PRN 03/07/18 09/12/24 History mcg/actuation nasal allergies spray,suspension (Flonase Allergy Relief) lorazepam 0.5 mg tablet (Ativan) 0.5 mg PO Q8 PRN Anxiety 03/07/18 09/12/24 History rivaroxaban 20 mg tablet (Xarelto) 20 mg PO QAM 03/07/18 09/12/24 History nystatin 100,000 unit/gram topical 1 applic topical BID PRN Skin 03/18/18 09/12/24 History powder Irritation baclofen 20 mg tablet 20 mg PO QID 12/28/18 09/12/24 History duloxetine 60 mg capsule,delayed 60 mg PO BID 02/02/19 09/12/24 History release (Cymbalta) baclofen 10 mg tablet 10 mg PO QID 09/25/19 09/12/24 History docusate sodium 283 mg/5 mL enema 283 mg CA HS 09/25/19 09/12/24 History (Enemeez) potassium chloride 10 mEq 10 meq PO BID 09/29/20 09/12/24 History capsule,extended release acetaminophen 500 mg tablet 1,000 mg PO Q6H PRN Fever Or Pain 01/07/21 09/12/24 History (Tylenol Extra Strength) epinephrine 0.3 mg/0.3 mL 0.3 mg (0.3 mL) IM ONCE PRN 01/07/21 09/12/24 Rx injection, auto-injector (EpiPen anaphylaxis #1 ea 2-Fam) oxycodone-acetaminophen 10 mg-325 1 tab PO Q6 PRN Pain 01/07/21 09/12/24 History mg tablet citric ac 1980.6 mg-glucono 59.4 30 ml irrigation 3XWK #900 mL 12/11/21 09/12/24 Rx mg-mag carb 980.4 mg/30 mL irrig.soln (Renacidin) hydroxyzine HCl 25 mg tablet 25 mg PO HS PRN hyperactivity 12/15/22 09/12/24 History Flutter Valve #1 ea 12/23/22 09/07/24 Rx Incentive Spirometer #1 ea 12/23/22 09/07/24 Rx morphine 15 mg tablet,extended 15 mg PO AMHS 11/27/23 09/12/24 History release aripiprazole 2 mg tablet (Abilify) 1 mg PO QAM 03/01/24 09/12/24 History gabapentin 300 mg capsule 300 mg PO QID 03/01/24 09/12/24 History gabapentin 600 mg tablet 600 mg PO QID 03/01/24 09/12/24 History trazodone 50 mg tablet 50 mg PO HS PRN prn 06/15/24 09/12/24 History docusate sodium 100 mg capsule 100 mg PO DAILY@1600 08/27/24 09/12/24 History methenamine hippurate 1 gram tablet 1 g PO BID 08/27/24 09/12/24 History norethindrone (contraceptive) 0.35 0.35 mg PO DAILY 08/27/24 09/12/24 History mg tablet (Jencycla) compressor, for nebulizer #1 ea 08/28/24 09/07/24 Rx ipratropium 0.5 mg-albuterol 3 mg 3 ml inhalation QID PRN wheezing 08/28/24 09/12/24 Rx (2.5 mg base)/3 mL nebulization #180 mL soln nebulizer accessories (A.I.R.S. #50 ea 08/28/24 09/07/24 Rx Nebulizer Replacement kit) collagenase clostridium histo. 250 1 applic EXT DAILY #90 grams 09/04/24 09/12/24 Rx unit/gram topical ointment (Santyl) guaifenesin 600 mg tablet, 1,200 mg (2 x 600 mg) PO Q12H #100 09/04/24 09/12/24 Rx extended release 12 hr (Mucinex) tabs sodium chloride 7 % for 4 ml NEB BIDR #120 mL 09/07/24 09/12/24 Rx nebulization vancomycin 250 mg capsule 250 mg PO QAM 09/07/24 09/12/24 History (Vancocin) Past Med/Surg History Problem List (Updated 09/12/24 @ 18:43 by Sabine Narayanan PA-C) Multifocal pneumonia Abnormal CT scan, chest Nausea (Acute) Hypoxia (Acute) Mucus plugging of bronchi (Acute) Stage I pressure ulcer of right heel (Acute) Hemoptysis Chronic pain syndrome Acute hypokalemia (Acute) Right lower lobe pneumonia (Acute) Bilateral pneumonia Acute hypoxic respiratory failure (Acute) Thrombocytopenia (Acute) Leukopenia (Acute) Fever, low grade (Acute) Cough (Acute) RLL pneumonia (Acute) Deep tissue injury (Acute) Open wound of right hand (Acute) Stage III pressure ulcer of left ankle (Acute) Pressure ulcer of left heel, stage 2 (Acute) Acquired hammer toe (Chronic) Chronic fibrosis of lung Neuromuscular respiratory weakness Chronic atelectasis Chronic cough Suprapubic catheter Placed at [facility] Jan 2022 Encounter for pre-operative examination Quadriplegia (Acute) Allergy to multiple antibiotics Nausea & vomiting Chronic hypotension 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) Follows with wound clinic- currently undergoing hyperbaric oxygen treatments Neurogenic dysfunction of the urinary bladder (Acute) Anxiety Autonomic dysreflexia Depression Medical History Open wound of right hand [facility] W[facility] Stage III pressure ulcer of ankle Left - [facility] Wound Clinic Neuromuscular respiratory weakness [facility] Pulmonary [place] History of MRSA infection 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, 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 ago Autonomic dysreflexia History of Clostridioides difficile colitis per PAT RN notation "resolved, recently tested and negative" first entered into EMR 2022 History of cervical fracture History of DVT (deep vein thrombosis) upper [id number] into EMR in 2014 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 Treated at [facility]> 6 ys ago Environmental allergies Seasonal and environmental allergies History of seizure 2013 - due to BP issue and autonomic dysreflexia > none since Port-A-Cath in place 06/15/18 power port Neurogenic bladder Surgical History History of fusion of cervical spine ACDF "C5-C7, C3-T2" Hx of surgical procedure Debridement of Stage 4 Ischial Pressure Ulcer with Hamstring Flap Closure History of myringotomy Bilateral Status post amputation of toe second toe, right foot. 07/2019. S/P cystoscopy with botox injections Hx of wisdom tooth extraction History of urostomy Subsequent Removal Hx of tracheostomy since removed History of bowel resection 07/02 Obstruction/Scar Tissue History of appendectomy S/P thoracentesis PEG (percutaneous endoscopic gastrostomy) status Subsequent Removal Family History Father Diabetes Brother Depression Other No family history of adverse response to anesthesia Social History Smoking Status: Never smoker Tobacco Type: Cigarettes Age Started Using Tobacco: 18; Age Quit Using Tobacco: 28; packs per day: 1; Second Hand Exposure: No; Do You Dip or Chew Tobacco: No; Hx Alcohol Use: No Hx Substance Use: No Preferred Language: [place] Communication Ability: Effective Visual Impairment: Limited Hearing Ability: Normal 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 Instructor Required: No Beliefs That Will Affect Care: None marital status: Single Current Living Situation: Family Current Living Situation Comment: Mother And Father current occupational status: disabled How many Children do You have: 0 Feels Safe at Home: Yes Childhood Exposure to Second-Hand Smoke: No Diet: regular during the past year weight has: remained stable Physical Activity Frequency: Does not Exercise Seatbelt Use: always Assistive Devices: Hospital Bed and Oxygen - Continuous Review of Systems Review of Systems: At least ten systems reviewed and negative except as noted in the HPI. Physical Exam Physical Exam: General Appearance: WD/WN, vitals as above, NAD, appears chronically ill but comfortable, sitting up on NA O2, pleasant Head: normocephalic, atraumatic Eyes: normal inspection, PERRL, conjunctivae normal, anicteric sclerae ENT: external ear and nose normal, oropharynx normal Neck: normal visual inspection Respiratory: increased respiratory effort, diminished breath sounds with scattered rhonchi, bibasilar crackles Cardiovascular: regular rate, rhythm, normal peripheral pulses, slight non- pitting BLE edema. Vessels: no JVD Chest: normal inspection of chest Abdomen/GI: normal bowel sounds, soft, nontender, no hepatosplenomegaly Extremities/Musculoskeletal: +quadriplegia with BUE contractures Neurologic: PERRL, EOMI, accommodation nl, no face palsy, no dysarthria, CN's II-XI intact bilaterally and moves all extremities Psychiatric: A+Ox3, euthymic affect Skin: no rashes, normal color, warm/dry, L lateral foot wound (dressing changed today) Results & Data Results & Data Vital Signs (Past 12 Hours) Vital Signs Temp Pulse Pulse Resp BP BP Pulse Ox 09/12/24 17:32 90 09/12/24 17:29 94 09/12/24 17:29 90 22 114/76 94 09/12/24 17:01 36.6 C 92 H 22 92/67 L 90 O2 Del Method O2 Flow Rate 09/12/24 17:32 09/12/24 17:29 Nasal Cannula 3 09/12/24 17:29 Nasal Cannula 3 09/12/24 17:01 Room Air Laboratory Results Short CBC 09/12/24 Range/Units 17:27 WBC 13.40 H (4.8-10.8) K/ul Hgb 12.3 (12.0-16.0) g/dl Hct 36.9 L (37.0-47.0) % Plt Count 172 (130-400) K/uL BMP 09/12/24 17:27 Sodium 133 L Potassium 3.9 Chloride 98 Carbon Dioxide 26 BUN 3 L Creatinine < 0.20 L Glucose 100 H Calcium 9.2 Liver Function 09/12/24 Range/Units 17:27 Total Bilirubin 0.6 (0.2-1.0) mg/dl AST 13 (13-39) U/L ALT 12 (7-52) U/L Alkaline Phosphatase 69 (34-104) U/L Albumin 4.0 (3.4-5.0) gm/dl Supervising Physician Co-Signing Physician Notes Patient seen and examined independently. Patient had undergone CT chest earlier today; found to have right middle lung collapse and increased secretions/debris's within the right main bronchus and occlusion of bilateral lower lobe bronchi. Pulmonology recommended patient to go to the ED for bronchoscopy tomorrow. Plan to continue on Zosyn; continue chest PT, DuoNebs every 4 hours; n.p.o. from midnight. Xarelto currently on hold for now. I have reviewed the advanced practitioner's documentation, and I agree with, and take responsibility for the plan of care I spent a total of 25 minutes coordinating, documenting, and providing care for this patient excluding time spent in the performance of separately billed services. All of the aforementioned completed while collaborating with the assigned advanced practitioner for a full treatment plan
[2024-09-12] MEDS ORDERED: MoRPHine SULFATE 2 MG/ML CARP IV PRN (17:50)
[2024-09-12 18:01] LABS: Anion Gap 9 (3-11); Bilirubin,Total 0.6 mg/dl (0.2-1.0); Calcium 9.2 mg/dl (8.6-10.3); Carbon Dioxide 26 mmol/L (21-32); Chloride 98 mmol/L (98-107); Magnesium 1.8 mg/dl (1.7-2.4); Potassium 3.9 mmol/L (3.5-5.1); Sodium 133 mmol/L (136-145)
[2024-09-12] MEDS: MoRPHine SULFATE 2 MG/ML CARP IV STA ×2 (18:01→22:20)
--- NOTE | 2024-09-12 18:02 | Emergency Department Note ---
Impression & Plan Respiratory distress, Pneumonia, Leukocytosis, Failure of outpatient treatment ED Provider Note NAME: KEVON GUAMAN AGE: 33 SEX: F : 1990 ARRIVES VIA: Walk-In INFORMANT: [Patient] ED PROVIDER(S): [Will Lazar MD] CHIEF COMPLAINT: Doctor referred HISTORY OF PRESENT ILLNESS: The patient is a 33-year-old female with incomplete C4 quadriplegia. The patient has a suprapubic Bonilla catheter. She was in our hospital recently for pneumonia. She finished her Augmentin that was prescribed outpatient 3 days ago. The patient thought she was doing well up until about the last 24 hours when she began to notice shortness of breath and tightness in the chest. She felt there was rattling in her lungs. She had an outpatient CT scan done today and she has bilateral pneumonia with some atelectasis as well as bronchial plugging. She was referred to our hospital for admission. Pulmonology will be doing a bronchoscopy tomorrow. The patient does not typically wear oxygen but does now require oxygen as her O2 saturation was low. She does have some central chest pain just from her difficulty breathing. PMHx/PSHx/Social Hx: See Below PHYSICAL EXAM: GENERAL: Patient is in no acute distress. HEENT: No acute trauma, normocephalic atraumatic, mucous membranes moist, no nasal congestion. NECK: No stridor, no adenopathy, no meningismus, trachea is midline. LUNGS: Crackles with wheezing bilaterally. She does have some diminished breath sounds with an increased respiratory rate. Subtle accessory muscle use noted. HEART: Without murmurs gallops or rubs, regular rate and rhythm. ABDOMEN: Soft, nontender, no peritonitis. Somewhat distended. Suprapubic Bonilla catheter noted. EXTREMITIES: No cyanosis. NEUROLOGIC: Oriented x 3. She does have some movement of her upper extremities but no movement of her legs consistent with her incomplete C4 quadriplegia. SKIN: No jaundice, no diaphoresis. DIFFERENTIAL DIAGNOSIS: Respiratory distress, bronchitis or pneumonia, sepsis, failed outpatient management, among others. EMERGENCY DEPARTMENT PROCEDURES: MEDICAL DECISION MAKING: There is a mild leukocytosis, this of course would be consistent with infection. There was a normal hemoglobin and platelet count. INR slightly high at 1.3. No renal failure or significant electrolyte abnormality. Lactic acid level was not elevated making severe sepsis less likely. No concerning liver enzyme elevation. Respiratory bio fire was positive for parainfluenza which had been detected within the last week. Review of the patient's chest CT outpatient does show a bilateral pneumonia with some lung collapse and mucous plugging. On exam, the patient had some subtle retractions and an increased respiratory rate. Her lung exam was consistent with bilateral pneumonia. The patient was aggressively managed given her presentation and history. She was given a DuoNeb. She was given a IV saline bolus. She received IV Zosyn. Patient was ordered for IV morphine for pain. She was maintained on O2 supplementation. The patient is at this point stable. She will require a hospital stay, IV antibiotic therapy, aggressive respiratory care and, likely bronchoscopy. I did speak with the patient, I spoke with case management, the on-call hospitalist was consulted. Prior/Outside records/notes reviewed: Recent discharge summary from 09/04/2024 describing her presentation, hospital course and plan at discharge. Imaging/x-ray results per my interpretation: Chronic Medical/Social conditions affecting care: History of C4 paraplegia. Care/Management discussed with: Case management and the on-call hospitalist. Level of care consideration(s): After review of the information above and other included data: --I believe the patient requires escalation of care to admission Critical Care Note: I have personally spent 41 minutes of critical care time in the direct management of this patient. This includes bedside care, interpretation of diagnostic studies, and testing, discussion with consultants, patient, and family members, and other required patient management activities. This 41 minutes is in excess of all separately billable procedures. DISPOSITION: Admission Past Med/Surg History Problem List (Updated 09/13/24 @ 13:24 by Will Lazar MD) Failure of outpatient treatment (Acute) Leukocytosis (Acute) Pneumonia (Acute) Respiratory distress (Acute) Parainfluenza Multifocal pneumonia Abnormal CT scan, chest Nausea (Acute) Hypoxia (Acute) Mucus plugging of bronchi (Acute) Stage I pressure ulcer of right heel (Acute) Hemoptysis Chronic pain syndrome Acute hypokalemia (Acute) Right lower lobe pneumonia (Acute) Bilateral pneumonia Acute hypoxic respiratory failure (Acute) Thrombocytopenia (Acute) Leukopenia (Acute) Fever, low grade (Acute) Cough (Acute) RLL pneumonia (Acute) Deep tissue injury (Acute) Open wound of right hand (Acute) Stage III pressure ulcer of left ankle (Acute) Pressure ulcer of left heel, stage 2 (Acute) Acquired hammer toe (Chronic) 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 Stage III pressure ulcer of ankle Left - 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 [employer], 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 ago Autonomic dysreflexia History of Clostridioides difficile colitis per PAT RN notation "resolved, recently tested and negative" first entered into EMR 2022 History of cervical fracture History of DVT (deep vein thrombosis) upper [id number]-Pskouip-adjywom into EMR in 2014 intermediate (current) use of anticoagulants Xarelto Pressure ulcer of toe of left foot following with wound clinic Quadriplegia history C4 fracture Restrictive lung mechanics due to neuromuscular disease atelectasis - [facility] [place] Suprapubic catheter Former smoker Anxiety and depression Chronic osteomyelitis sacrum per previous records Bladder stones Hx of pneumothorax Hx with chest tube. Treated at [facility]> 6 ys ago Environmental allergies Seasonal and environmental allergies History of seizure 2013 - due to BP issue and autonomic dysreflexia > none since Port-A-Cath in place 06/15/18 power port Neurogenic bladder Surgical History History of fusion of cervical spine ACDF "C5-C7, C3-T2" Hx of surgical procedure Debridement of Stage 4 Ischial Pressure Ulcer with Hamstring Flap Closure History of myringotomy Bilateral Status post amputation of toe second toe, right foot. 07/2019. S/P cystoscopy with botox injections Hx of wisdom tooth extraction History of urostomy Subsequent Removal Hx of tracheostomy since removed History of bowel resection 2/2 Obstruction/Scar Tissue History of appendectomy S/P thoracentesis PEG (percutaneous endoscopic gastrostomy) status Subsequent Removal Family History Father Diabetes Brother Depression Other No family history of adverse response to anesthesia Social History Smoking Status: Never smoker Tobacco Type: Cigarettes Age Started Using Tobacco: 18; Age Quit Using Tobacco: 28; packs per day: 1; Second Hand Exposure: No; Do You Dip or Chew Tobacco: No; Hx Alcohol Use: No Hx Substance Use: No Preferred Language: Tristanian Communication Ability: Effective Visual Impairment: Limited Hearing Ability: Normal Reeling Operator Required: No Beliefs That Will Affect Care: None marital status: Single Current Living Situation: Family Current Living Situation Comment: Mother And Father current occupational status: disabled How many Children do You have: 0 Feels Safe at Home: Yes Childhood Exposure to Second-Hand Smoke: No Diet: regular during the past year weight has: remained stable Physical Activity Frequency: Does not Exercise Seatbelt Use: always Assistive Devices: Hospital Bed, Mechanical Lift, Oxygen - Continuous, Scooter/Electric Scooter and Wheelchair Allergies Allergies Allergy/AdvReac Type Severity Reaction Status Date / Time cefepime Allergy Severe Anaphylaxis Verified 09/12/24 17:43 fentanyl Allergy Intermediate Itchiness, Verified 09/12/24 17:43 Rash levofloxacin Allergy Intermediate Rash Verified 09/12/24 17:43 vancomycin Allergy Intermediate Rash Verified 09/12/24 17:43 imipenem AdvReac Severe Seizure Verified 09/12/24 17:43 Home Meds Home Medications Medication Instructions Recorded Confirmed ascorbic acid (vitamin C) 1,000 mg 1 g PO BID 03/07/18 09/12/24 tablet dantrolene 100 mg capsule 100 mg PO TID 03/07/18 09/12/24 fluticasone propionate 50 2 spray intranasal QAM PRN 03/07/18 09/12/24 mcg/actuation nasal allergies spray,suspension (Flonase Allergy Relief) lorazepam 0.5 mg tablet (Ativan) 0.5 mg PO Q8 PRN Anxiety 03/07/18 09/12/24 rivaroxaban 20 mg tablet (Xarelto) 20 mg PO QAM 03/07/18 09/12/24 nystatin 100,000 unit/gram topical 1 applic topical BID PRN Skin 03/18/18 09/12/24 powder Irritation baclofen 20 mg tablet 20 mg PO QID 12/28/18 09/12/24 duloxetine 60 mg capsule,delayed 60 mg PO BID 02/02/19 09/12/24 release (Cymbalta) baclofen 10 mg tablet 10 mg PO QID 09/25/19 09/12/24 docusate sodium 283 mg/5 mL enema 283 mg HI HS 09/25/19 09/12/24 (Enemeez) potassium chloride 10 mEq 10 meq PO BID 09/29/20 09/12/24 capsule,extended release acetaminophen 500 mg tablet 1,000 mg PO Q6H PRN Fever Or Pain 01/07/21 09/12/24 (Tylenol Extra Strength) oxycodone-acetaminophen 10 mg-325 1 tab PO Q6 PRN Pain 01/07/21 09/12/24 mg tablet hydroxyzine HCl 25 mg tablet 25 mg PO HS PRN hyperactivity 12/15/22 09/12/24 morphine 15 mg tablet,extended 15 mg PO AMHS 11/27/23 09/12/24 release aripiprazole 2 mg tablet (Abilify) 1 mg PO QAM 03/01/24 09/12/24 gabapentin 300 mg capsule 300 mg PO QID 03/01/24 09/12/24 gabapentin 600 mg tablet 600 mg PO QID 03/01/24 09/12/24 trazodone 50 mg tablet 50 mg PO HS PRN prn 06/15/24 09/12/24 docusate sodium 100 mg capsule 100 mg PO DAILY@1600 08/27/24 09/12/24 methenamine hippurate 1 gram tablet 1 g PO BID 08/27/24 09/12/24 norethindrone (contraceptive) 0.35 0.35 mg PO DAILY 08/27/24 09/12/24 mg tablet (Jencycla) vancomycin 250 mg capsule 250 mg PO QAM 09/07/24 09/12/24 (Vancocin) Previous Rx's Medication Instructions Recorded epinephrine 0.3 mg/0.3 mL 0.3 mg (0.3 mL) IM ONCE PRN 01/07/21 injection, auto-injector (EpiPen anaphylaxis #1 ea 2-Fam) citric ac 1980.6 mg-glucono 59.4 30 ml irrigation 3XWK #900 mL 12/11/21 mg-mag carb 980.4 mg/30 mL irrig.soln (Renacidin) Flutter Valve #1 ea 12/23/22 Incentive Spirometer #1 ea 12/23/22 compressor, for nebulizer #1 ea 08/28/24 ipratropium 0.5 mg-albuterol 3 mg 3 ml inhalation QID PRN wheezing 08/28/24 (2.5 mg base)/3 mL nebulization #180 mL soln nebulizer accessories (A.I.R.S. #50 ea 08/28/24 Nebulizer Replacement kit) collagenase clostridium histo. 250 1 applic EXT DAILY #90 grams 09/04/24 unit/gram topical ointment (Santyl) guaifenesin 600 mg tablet, 1,200 mg (2 x 600 mg) PO Q12H #100 09/04/24 extended release 12 hr (Mucinex) tabs sodium chloride 7 % for 4 ml NEB BIDR #120 mL 09/07/24 nebulization Results & Data (ED) Vital Signs Vital Signs - 24 hr 09/12/24 17:01 09/12/24 17:28 09/12/24 17:29 Temperature 36.6 C Temperature Source Skin Pulse Rate 92 H Pulse Rate [Apical] 90 Pulse Rate from SpO2 Sensor Respiratory Rate 22 22 Respiratory Effort / Characteristics Non-Labored Spontaneous Respiratory Depth Normal Respiratory Pattern Regular Blood Pressure 92/67 L Blood Pressure [Left Arm] 114/76 Blood Pressure Mean 75 Blood Pressure Mean [Left Arm] 88 Blood Pressure Position [Left Arm] Semi-fowlers Pulse Oximetry 90 87 L 94 Oxygen Delivery Method Room Air Room Air Nasal Cannula Nasal Cannula Oxygen Flow Rate 0 3 Sepsis Recent Fever Within 48 Hours No Sepsis New/Unexplained Change in Mental Status N/A Sepsis Action Taken by Nursing No Action Required Oxygen Flow Rate - Titration 3 Pulse Oximetry Post Tiitration 91 09/12/24 17:29 09/12/24 17:32 09/12/24 17:33 Temperature Temperature Source Pulse Rate 90 87 Pulse Rate [Apical] Pulse Rate from SpO2 Sensor 88 Respiratory Rate 23 Respiratory Effort / Characteristics Respiratory Depth Respiratory Pattern Blood Pressure 114/76 Blood Pressure [Left Arm] Blood Pressure Mean 88 Blood Pressure Mean [Left Arm] Blood Pressure Position [Left Arm] Pulse Oximetry 94 92 Oxygen Delivery Method Nasal Cannula Oxygen Flow Rate 3 Sepsis Recent Fever Within 48 Hours Sepsis New/Unexplained Change in Mental Status Sepsis Action Taken by Nursing Oxygen Flow Rate - Titration Pulse Oximetry Post Tiitration Home Medications Current Medication List: was personally reviewed by me Laboratory Data Attestation: I reviewed the patient's lab results. 09/13/24 05:41 09/13/24 05:41 Lab Results 09/12/24 09/12/24 Range/Units 17:27 17:32 WBC 13.40 H (4.8-10.8) K/ul RBC 4.28 (4.20-5.40) M/uL Hgb 12.3 (12.0-16.0) g/dl Hct 36.9 L (37.0-47.0) % MCV 86.2 (80.0-100.0) fL MCH 28.7 (25.0-34.0) pg MCHC 33.3 (32.0-36.0) g/dL RDW Std Deviation 43.7 (36.4-46.3) fL RDW Coeff of Andres 13.9 (11.5-14.5) % Plt Count 172 (130-400) K/uL MPV 9.7 (9.4-12.4) fL Immature Gran % (Auto) 0.5 % Neut % (Auto) 80.0 % Lymph % (Auto) 12.9 % Hood % (Auto) 6.1 % Eos % (Auto) 0.3 % Baso % (Auto) 0.2 % Neut # (Auto) 10.71 H (1.40-6.50) K/uL Lymph # (Auto) 1.73 (1.20-3.40) K/uL Hood # (Auto) 0.82 H (0.11-0.59) K/uL Eos # (Auto) 0.04 (0.00-0.50) K/uL Baso # (Auto) 0.03 (0.00-0.20) K/uL Immature Gran # (Auto) 0.07 (0.01-0.20) K/uL PT 13.6 H (9.0-12.0) Seconds INR 1.3 H (0.9-1.1) Sodium 133 L (136-145) mmol/L Potassium 3.9 (3.5-5.1) mmol/L Chloride 98 (98-107) mmol/L Carbon Dioxide 26 (21-32) mmol/L Anion Gap 9 (3-11) BUN 3 L (6-23) mg/dl Creatinine < 0.20 L (0.6-1.2) mg/dl Est Cr Clr Drug Dosing 426.0 ml/min eGFR Not Reportable BUN/Creatinine Ratio TNP Glucose 100 H (70-99(Fasting)) mg/dl Lactate 0.8 (0.4-2.0) mmol/L Calcium 9.2 (8.6-10.3) mg/dl Magnesium 1.8 (1.7-2.4) mg/dl Total Bilirubin 0.6 (0.2-1.0) mg/dl AST 13 (13-39) U/L ALT 12 (7-52) U/L Alkaline Phosphatase 69 (34-104) U/L Total Protein 6.8 (6.0-8.3) gm/dl Albumin 4.0 (3.4-5.0) gm/dl Globulin 2.8 (2.5-4.0) gm/dl Albumin/Globulin Ratio 1.4 (0.9-2) Adenovirus (PCR) Not Detected (NotDetected) B. pertussis DNA (PCR) Not Detected (NotDetected) B.parapertussis DNA PCR Not Detected (NotDetected) C. pneumoniae DNA (PCR) Not Detected (NotDetected) Coronavirus OC43 (PCR) Not Detected (NotDetected) Coronavirus HKU1 (PCR) Not Detected (NotDetected) Coronavirus 229E (PCR) Not Detected (NotDetected) SARS-CoV-2 (PCR) Not Detected (NotDetected) Coronavirus NL63 (PCR) Not Detected (NotDetected) Human Metapneumovir PCR Not Detected (NotDetected) Influenza Type A (PCR) Not Detected (NotDetected) Influenza Type B (PCR) Not Detected (NotDetected) M. pneumoniae (PCR) Not Detected (NotDetected) Parainfluenza 1 (PCR) Not Detected (NotDetected) Parainfluenza 2 (PCR) Not Detected (NotDetected) Parainfluenza 3 (PCR) DETECTED A (NotDetected) Parainfluenza 4 (PCR) Not Detected (NotDetected) RSV (PCR) Not Detected (NotDetected) Entero/Rhino (PCR) Not Detected (NotDetected) Administered Medications Albuterol (Albut/Ipratrop 3mg/0.5mg Neb 3 Ml Vial) 3 ml NEB QIDR [facility]; Protocol Stop: 10/12/24 21:59 Last Admin: 09/13/24 11:40 Dose: 3 ml Documented By: Admin: 09/13/24 07:10 Dose: 3 ml Documented By: Admin: 09/12/24 22:17 Dose: 3 ml Documented By: SUZI Aripiprazole (Aripiprazole 2 Mg Tab) 1 mg PO QAM [facility] Stop: 10/13/24 08:59 Last Admin: 09/13/24 08:02 Dose: 1 mg Documented By: GIBRAN Ascorbic Acid (Ascorbic Acid 500 Mg Tab) 1,000 mg PO BID [facility] Stop: 10/13/24 08:59 Last Admin: 09/13/24 08:06 Dose: 1,000 mg Documented By: GIBRAN Baclofen (Baclofen 20 Mg Tab) 20 mg PO QID@0400,1000,1600,2200 [facility] Stop: 10/12/24 21:59 Last Admin: 09/13/24 08:08 Dose: 20 mg Documented By: Admin: 09/13/24 04:15 Dose: 20 mg Documented By: Admin: 09/12/24 21:51 Dose: 20 mg Documented By: ANDREA Baclofen (Baclofen 10 Mg Tab) 10 mg PO QID@0400,1000,1600,2200 [facility] Stop: 10/12/24 21:59 Last Admin: 09/13/24 08:01 Dose: 10 mg Documented By: Admin: 09/13/24 04:15 Dose: 10 mg Documented By: Admin: 09/12/24 22:14 Dose: 10 mg Documented By: ANDREA Dantrolene Sodium (Dantrolene Sodium 25 Mg Cap) 100 mg PO TID [facility] Stop: 10/12/24 21:14 Last Admin: 09/13/24 08:04 Dose: 100 mg Documented By: Admin: 09/12/24 21:54 Dose: 100 mg Documented By: ANDREA Duloxetine HCl (Duloxetine Hcl 60 Mg Cap) 60 mg PO BID [facility] Stop: 10/12/24 20:59 Last Admin: 09/13/24 12:50 Dose: Not Given Documented By: Admin: 09/12/24 21:52 Dose: 60 mg Documented By: ANDREA Gabapentin (Gabapentin 600 Mg Tab) 600 mg PO QID@0400,1000,1600,2200 [facility] Stop: 10/12/24 21:59 Last Admin: 09/13/24 08:08 Dose: 600 mg Documented By: Admin: 09/13/24 04:17 Dose: 600 mg Documented By: Admin: 09/12/24 21:55 Dose: 600 mg Documented By: ANDREA Gabapentin (Gabapentin 300 Mg Cap) 300 mg PO QID@0400,1000,1600,2200 [facility] Stop: 10/12/24 21:59 Last Admin: 09/13/24 08:05 Dose: 300 mg Documented By: Admin: 09/13/24 04:17 Dose: 300 mg Documented By: Admin: 09/12/24 21:55 Dose: 300 mg Documented By: ANDREA Guaifenesin (Guaifenesin 600 Mg Tabcr) 1,200 mg PO Q12H [facility] Stop: 10/12/24 20:59 Last Admin: 09/13/24 08:03 Dose: 1,200 mg Documented By: Admin: 09/12/24 21:52 Dose: 1,200 mg Documented By: ANDREA Piperacillin Sod/Tazobactam Sod (Zosyn) 4.5 gm in 100 mls @ 25 mls/hr IV Q8H [facility]; Protocol Stop: 09/17/24 22:59 Last Infusion: 09/13/24 11:03 Dose: Infused Documented By: Admin: 09/13/24 07:03 Dose: 25 mls/hr Documented By: Infusion: 09/13/24 02:23 Dose: Infused Documented By: Admin: 09/12/24 22:23 Dose: 25 mls/hr Documented By: ANDREA Methenamine Hippurate (Methenamine Hippurate 1 Gm Tab) 1 gm PO BID [facility] Stop: 10/12/24 20:59 Last Admin: 09/13/24 08:05 Dose: 1 gm Documented By: Admin: 09/12/24 21:53 Dose: 1 gm Documented By: ANDREA Miscellaneous (Norethindrone (Contraceptive) [Jencycla] 0.35 Mg Tablet- Order Awaiting Action) 1 each N/A QS [facility] Stop: 10/13/24 00:00 Last Admin: 09/13/24 07:20 Dose: Not Given Documented By: Admin: 09/13/24 00:09 Dose: Not Given Documented By: ANDREA Morphine Sulfate (Morphine Sulfate Cr 15 Mg Tabcr) 15 mg PO AMHS [facility] Stop: 09/26/24 20:59 Last Admin: 09/13/24 08:00 Dose: 15 mg Documented By: Admin: 09/12/24 21:50 Dose: 15 mg Documented By: ANDREA Oxycodone/Acetaminophen (Oxycodone/Acetaminophen 10-325 Tab) 1 tab PO Q6 PRN PRN Reason: Pain Stop: 09/26/24 22:29 Last Admin: 09/13/24 01:56 Dose: 1 tab Documented By: ANDREA Potassium Chloride (Potassium Chloride 10 Meq Tabcr) 10 meq PO BID [facility]EL Stop: 10/12/24 20:59 Last Admin: 09/13/24 08:01 Dose: 10 meq Documented By: Admin: 09/12/24 21:51 Dose: 10 meq Documented By: ANDREA Discontinued Medications Albuterol (Albut/Ipratrop 3mg/0.5mg Neb 3 Ml Vial) 3 ml NEB NOW STA; Protocol Stop: 09/12/24 17:51 Last Admin: 09/12/24 18:07 Dose: 3 ml Documented By: BRUCE Bojorquez Syrup (Bojorquez Syrup 5 Ml Udp) 5 ml PO ONE STA Stop: 09/12/24 17:01 Last Admin: 09/12/24 18:22 Dose: Not Given Documented By: BRUCE Piperacillin Sod/Tazobactam Sod (Zosyn) 4.5 gm in 100 mls @ 200 mls/hr IV NOW ONE Stop: 09/12/24 17:29 Last Infusion: 09/12/24 20:08 Dose: Infused Documented By: Admin: 09/12/24 18:04 Dose: 200 mls/hr Documented By: BRUCE Sodium Chloride (Nss) 500 mls @ 999 mls/hr IV .Q31M ONE Stop: 09/12/24 17:46 Last Infusion: 09/12/24 20:08 Dose: Infused Documented By: Admin: 09/12/24 17:35 Dose: 999 mls/hr Documented By: BRUCE Morphine Sulfate (Morphine Sulfate 2 Mg/Ml Carp) 2 mg IV NOW STA Stop: 09/12/24 17:51 Last Admin: 09/12/24 18:08 Dose: 2 mg Documented By: BRUCE Morphine Sulfate (Morphine Sulfate 2 Mg/Ml Carp) 2 mg IV NOW STA Stop: 09/12/24 22:14 Last Admin: 09/12/24 22:20 Dose: 2 mg Documented By: ANDREA Sodium Biphosphate/Sodium Phosphate (Sod Phosphate/Sod Biphosphate Enema 132 Ml Btl) 132 ml HI NOW STA Stop: 09/13/24 00:37 Last Admin: 09/13/24 01:19 Dose: 132 ml Documented By: ANDREA Vancomycin HCl (Vancomycin Hcl 250 Mg/5 Ml Soln) 250 mg PO ONE STA Stop: 09/12/24 17:01 Last Admin: 09/12/24 18:22 Dose: Not Given Documented By: BRUCE Discharge Plan Visit Data Chief Complaint: Referred by Doctor Stated Complaint: PNEUMONIA,REF BY CT ED Provider: Will Lazar Discharge Problem: Respiratory distress, Pneumonia, Leukocytosis, Failure of outpatient treatment Patient Disposition: Admitted As Inpatient Condition: Fair Discharge Instructions Interventions: ED Discharge Assessment Last Done: 09/12/24 20:16 Discharge Problem: Pneumonia Qualifiers: Pneumonia type: due to unspecified organism Laterality: bilateral Lung location: unspecified part of lung Qualified Code(s): J18.9 - Pneumonia, unspecified organism Leukocytosis Qualifiers: Leukocytosis type: unspecified Qualified Code(s): D72.829 - Elevated white blood cell count, unspecified
[2024-09-12] MEDS: PIPERACILLIN/TAZOBACTAM 4.5 GM/100 ML BAG IV ONE (18:04)
[2024-09-12] MEDS: ALBUT/IPRATROP 3MG/0.5MG NEB 3 ML VIAL NEB STA (18:07)
[2024-09-12 18:12] LABS: Alanine Aminotransferase 12 U/L (7-52); Albumin Globulin Ratio 1.4 (0.9-2); Alkaline Phosphatase 69 U/L (34-104); Aspartate Aminotransferase 13 U/L (13-39); Blood Urea Nitrogen 3 mg/dl (6-23); Globulin 2.8 gm/dl (2.5-4.0); Glucose 100 mg/dl (70-99(Fasting)); Total Protein 6.8 gm/dl (6.0-8.3)
[2024-09-12] MEDS: CHERRY SYRUP 5 ML UDP PO STA (18:22)
[2024-09-12] MEDS: VANCOMYCIN HCL 250 MG/5 ML SOLN PO STA (18:22)
[2024-09-12 18:41] LABS: Adenovirus PCR Not Detected (NotDetected); Bordetella parapertussis PCR Not Detected (NotDetected); Bordetella pertussis PCR Not Detected (NotDetected); Chlamydia pneumoniae PCR Not Detected (NotDetected); Coronavirus 229E PCR Not Detected (NotDetected); Coronavirus CoV-2 (COVID19)PCR Not Detected (NotDetected); Coronavirus HKU1 PCR Not Detected (NotDetected); Coronavirus NL63 PCR Not Detected (NotDetected); Coronavirus OC43PCR Not Detected (NotDetected); Human Metapneumovirus PCR Not Detected (NotDetected); Influenza A PCR Not Detected (NotDetected); Influenza B PCR Not Detected (NotDetected); Mycoplasma pneumoniae PCR Not Detected (NotDetected); Parainfluenza Virus 1 PCR Not Detected (NotDetected); Parainfluenza Virus 2 PCR Not Detected (NotDetected); Parainfluenza Virus 3 PCR DETECTED (NotDetected); Parainfluenza Virus 4 PCR Not Detected (NotDetected); Respiratory Syncytial VirusPCR Not Detected (NotDetected); Rhinovirus/Enterovirus PCR Not Detected (NotDetected)
[2024-09-12 19:09] LABS: INR 1.3 (0.9-1.1); Prothrombin Time 13.6 Seconds (9.0-12.0)
[2024-09-12] MEDS ORDERED: NYSTATIN POWDER 15GM BTL EXT PRN (20:50)
[2024-09-12] MEDS ORDERED: FLUTICASONE PROPIONATE NA SPR 16 GM BTL NAE PRN (20:50)
[2024-09-12] MEDS ORDERED: hydrOXYzine HCl 25 MG TAB PO PRN (20:50)
[2024-09-12] MEDS ORDERED: DOCUSATE SODIUM 283 MG/5 ML PR SCH (21:00)
[2024-09-12] MEDS: MoRPHine SULFATE CR 15 MG TABCR PO SCH (21:50)
[2024-09-12] MEDS: POTASSIUM CHLORIDE 10 MEQ TABCR PO SCH (21:51)
[2024-09-12] MEDS: BACLOFEN 20 MG TAB PO SCH (21:51)
[2024-09-12] MEDS: DULoxetine HCL 60 MG CAP PO SCH (21:52)
[2024-09-12] MEDS: guaiFENesin 600 MG TABCR PO SCH (21:52)
[2024-09-12] MEDS: METHENAMINE HIPPURATE 1 GM TAB PO SCH (21:53)
[2024-09-12] MEDS: DANTROLENE SODIUM 25 MG CAP PO SCH (21:54)
[2024-09-12] MEDS: GABAPENTIN 600 MG TAB PO SCH (21:55)
[2024-09-12] MEDS: GABAPENTIN 300 MG CAP PO SCH (21:55)
[2024-09-12] MEDS: BACLOFEN 10 MG TAB PO SCH (22:14)
[2024-09-12] MEDS: ALBUT/IPRATROP 3MG/0.5MG NEB 3 ML VIAL NEB SCH (22:17)
[2024-09-12] MEDS: PIPERACILLIN/TAZOBACTAM 4.5 GM/100 ML BAG IV SCH (22:23)
[2024-09-13] MEDS: SOD PHOSPHATE/SOD BIPHOSPHATE ENEMA 132 ML BTL PR STA (01:19)
[2024-09-13] MEDS: oxyCODONE/ACETAMINOPHEN 10-325 TAB PO PRN (01:56)
[2024-09-13 06:43] LABS: Hematocrit (blood only) 35.7 % (37.0-47.0); Hemoglobin 11.6 g/dl (12.0-16.0); Mean Corpuscular Hemoglobin 28.9 pg (25.0-34.0); Mean Corpuscular Hgb Conc 32.5 g/dL (32.0-36.0); Mean Corpuscular Volume 88.8 fL (80.0-100.0); Mean Platelet Volume 10.2 fL (9.4-12.4); Platelet Count 170 K/uL (130-400); RDW Coefficient of Variation 13.8 % (11.5-14.5); RDW Standard Deviation 45.4 fL (36.4-46.3); Red Blood Count 4.02 M/uL (4.20-5.40); White Blood Count 14.19 K/ul (4.8-10.8)
[2024-09-13 07:25] LABS: Anion Gap 8 (3-11); Calcium 8.8 mg/dl (8.6-10.3); Carbon Dioxide 27 mmol/L (21-32); Chloride 103 mmol/L (98-107); Potassium 3.6 mmol/L (3.5-5.1); Sodium 138 mmol/L (136-145)
[2024-09-13 07:32] LABS: Blood Urea Nitrogen 3 mg/dl (6-23); Glucose 109 mg/dl (70-99(Fasting))
[2024-09-13] MEDS: ARIPiprazole 2 MG TAB PO SCH (08:02)
[2024-09-13] MEDS: ASCORBIC ACID 500 MG TAB PO SCH (08:06)
[2024-09-13] MEDS ORDERED: Nursing to Pharmacy Communication SCH ×2 (08:30→13:00)
[2024-09-13] MEDS ORDERED: VANCOMYCIN 125 MG PO SCH (09:00)
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
[2024-09-13 09:36] LABS: Base Excess ABG 0.8 mEq/L (-9-1.8); HCO3 ABG 27 mmol/L (19-24); Oxygen Saturation ABG 96.7 % (90-95); PCO2 ABG 49 mmHg (35-46); PO2 ABG 75 mmHg (80-95); pH ABG 7.35 (7.35-7.45)
[2024-09-13 09:45] LABS: Allen Test Pos (Pos)
--- NOTE | 2024-09-13 11:20 | History & Physical Bridge Note ---
Date of Service September 13, 2024 History & Physical Bridge Note I have examined the patient, reviewed the History & Physical and in the interval since the performance of the History & Physical I have noted the following changes of clinical significance: no changes noted
--- NOTE | 2024-09-13 12:02 | Pre Anesthesia Assessment ---
Date of Service September 13, 2024 Pre Sedation Assessment Vital Signs Temp Pulse Pulse Resp BP BP Pulse Ox 09/13/24 11:40 86 18 99 09/13/24 11:21 94 H 18 114/71 98 09/13/24 10:38 36.6 C 86 22 111/76 97 09/13/24 09:00 89 09/13/24 09:00 09/13/24 07:44 37.4 C 88 26 H 119/84 96 09/13/24 07:10 94 H 30 H 99 09/13/24 03:42 36.5 C 92 H 37 H 118/81 94 09/12/24 23:10 36.4 C L 103 H 21 122/85 93 09/12/24 22:17 85 22 92 09/12/24 21:08 81 09/12/24 20:52 89 26 H 118/83 90 09/12/24 20:50 36.4 C L 89 26 H 118/83 90 09/12/24 20:30 09/12/24 19:00 85 26 H 105/86 95 09/12/24 18:00 80 26 H 109/81 97 09/12/24 17:33 87 23 114/76 92 09/12/24 17:32 90 09/12/24 17:29 94 09/12/24 17:29 90 22 114/76 94 09/12/24 17:28 87 L 09/12/24 17:01 36.6 C 92 H 22 92/67 L 90 O2 Del Method O2 Flow Rate 09/13/24 11:40 Nasal Cannula 4 09/13/24 11:21 Nasal Cannula 09/13/24 10:38 Nasal Cannula 3.5 09/13/24 09:00 09/13/24 09:00 Nasal Cannula 3.5 09/13/24 07:44 Nasal Cannula 3.5 09/13/24 07:10 Nasal Cannula 5 09/13/24 03:42 Nasal Cannula 5 09/12/24 23:10 Nasal Cannula 5 09/12/24 22:17 Nasal Cannula 5 09/12/24 21:08 09/12/24 20:52 Nasal Cannula 5 09/12/24 20:50 Nasal Cannula 5 09/12/24 20:30 Nasal Cannula 5 09/12/24 19:00 09/12/24 18:00 09/12/24 17:33 09/12/24 17:32 09/12/24 17:29 Nasal Cannula 3 09/12/24 17:29 Nasal Cannula 3 09/12/24 17:28 Room Air, Nasal Cannula 0 09/12/24 17:01 Room Air Cardiovascular RRR, no murmur, no edema + regular rate and + regular rhythm + S1 normal and + S2 normal + PMI normal no JVD + capillary refill normal Respiratory + cough and + tachypneic + crackles Pre-Sedation Airway Assessment Smoking Status: Never smoker Hx Sleep Apnea: No Hx Difficult Intubation: No Short, Thick Neck: No Thyromental Distance: > or= 3.5 Finger Breadths Oral Cavity: + WNL Mallampati Class: IV ASA: ASA4 NPO Status Date of Last Intake of Fluids: 09/12/24 Time of Last Intake of Fluids: 21:00 Date of Last Intake of Solid Food: 09/12/24 Time of Last Intake of Solid Foods: 21:00 Notes The planned sedation has been discussed with the patient. Informed Consent was obtained. I have identified the patient, determined the appropriateness of sedation and have assessed the patient immediately prior to the procedure. All medicine(s) and interventions are by my order.
--- NOTE | 2024-09-13 12:24 | Post Anesthesia Assessment ---
Date of Service September 13, 2024 Post Sedation Assessment Vital Signs Temp Pulse Pulse Resp BP BP Pulse Ox 09/13/24 12:15 113 H 16 123/75 100 09/13/24 12:14 109 H 16 131/85 96 09/13/24 12:08 103 H 16 132/94 96 09/13/24 11:40 86 18 99 09/13/24 11:21 94 H 18 114/71 98 09/13/24 10:38 36.6 C 86 22 111/76 97 09/13/24 09:00 89 09/13/24 09:00 09/13/24 07:44 37.4 C 88 26 H 119/84 96 09/13/24 07:10 94 H 30 H 99 09/13/24 03:42 36.5 C 92 H 37 H 118/81 94 09/12/24 23:10 36.4 C L 103 H 21 122/85 93 09/12/24 22:17 85 22 92 09/12/24 21:08 81 09/12/24 20:52 89 26 H 118/83 90 09/12/24 20:50 36.4 C L 89 26 H 118/83 90 09/12/24 20:30 09/12/24 19:00 85 26 H 105/86 95 09/12/24 18:00 80 26 H 109/81 97 09/12/24 17:33 87 23 114/76 92 09/12/24 17:32 90 09/12/24 17:29 94 09/12/24 17:29 90 22 114/76 94 09/12/24 17:28 87 L 09/12/24 17:01 36.6 C 92 H 22 92/67 L 90 O2 Del Method O2 Flow Rate 09/13/24 12:15 Oxymask 10 09/13/24 12:14 Oxymask 6 09/13/24 12:08 Oxymask 6 09/13/24 11:40 Nasal Cannula 4 09/13/24 11:21 Nasal Cannula 09/13/24 10:38 Nasal Cannula 3.5 09/13/24 09:00 09/13/24 09:00 Nasal Cannula 3.5 09/13/24 07:44 Nasal Cannula 3.5 09/13/24 07:10 Nasal Cannula 5 09/13/24 03:42 Nasal Cannula 5 09/12/24 23:10 Nasal Cannula 5 09/12/24 22:17 Nasal Cannula 5 09/12/24 21:08 09/12/24 20:52 Nasal Cannula 5 09/12/24 20:50 Nasal Cannula 5 09/12/24 20:30 Nasal Cannula 5 09/12/24 19:00 09/12/24 18:00 09/12/24 17:33 09/12/24 17:32 09/12/24 17:29 Nasal Cannula 3 09/12/24 17:29 Nasal Cannula 3 09/12/24 17:28 Room Air, Nasal Cannula 0 09/12/24 17:01 Room Air Recovery Score Activity: Moves 4 extremities Respiration: Deep Breath/Cough Circulation: +/-20% PreAnes Value Consciousness: Fully Awake Oxygen Saturation: O2 needed for >90% Discharge Sedation Level of Care: Fast Track Phase II Post Sedation Plan On clinical assessment, the patient appears to have tolerated the sedation without complications. Patient is recovering as anticipated. Patient will continue to be monitored by nursing and may be discharged when sedation discharge criteria are met per below protocol. Upon Completions of procedure up to 15 minutes continue every 5 minute vital signs and the P.A.R. score; then discharge to a Phase I or Fast Track to Phase II per the following guidelines: * Discharge Patient to appropriate Phase II area if PAR is 8 or greater or return to pre- procedure baseline. The post - procedure orders will be as directed. * If PAR score is less than 8 or not return to pre-procedure baseline then patient will follow Phase I monitoring till PAR is reached for Phase II. The Phase I may be done in procedure room or may call to secure a Phase I area. * If naloxone or flumazenil are used for reversal, hold in Phase I for continued monitoring from when last reversal dose was given for a minimum of 60 minutes or longer pending the nurse and/or physician discretion of patient condition before discharge to Phase II. Please call the Sedation Physician to re-evaluate and complete post-note for discharge to Phase II area. Do NOT discharge from procedure sedation or Phase 1 until post- sedation evaluation note is complete by procedure /sedation MD Sedation Discharge Instructions to be given to the patient at discharge to home.
--- NOTE | 2024-09-13 12:25 | Procedure Note ---
Procedure Note: Bronchoscopy Procedure PREOPERATIVE DIAGNOSIS: Bibasilar pneumonia POSTOPERATIVE DIAGNOSIS: Bibasilar pneumonia PROCEDURE PERFORMED: Flexible fiberoptic bronchoscopy with aspiration of secretions in the right lower lobe and left lower lobe COMPLICATIONS: None. INDICATION: Clean out airways and evaluate for infectious organisms PROCEDURE: After obtaining an informed consent over the phone from the patient's mother, the patient was brought to the Bronchoscopy Suite. Timeout completed prior to the procedure initiation. The patient had appropriate oxygen, blood pressure, heart rate, and respiratory rate monitoring applied and monitored continuously throughout the procedure. Supplemental oxygen via nasal cannula as per nursing records was applied to the nasopharynx with adequate saturations achieved. Topical anesthesia with nebulized 1% lidocaine was achieved. Subsequent to this, the patient was premedicated with 2 mg of midazolam. The bronchoscope was originally attempted to be inserted via the right left nares, but the nares were too narrow to allow the bronchoscope to be inserted distally. A bite block was then placed and the bronchoscope was inserted via the oral airway. Epiglottis and vocal cord appeared normal. Scope was passed through the vocal cords after topical instillation of buffered lidocaine on the vocal cords. Trachea appeared to be normal. Hamida was sharp. Immediately seen were thick yellow secretions emanating from the left lower lobe and right lower lobe bronchi. Left lower lobe secretions were aspirated free and sent to the lab for culture analysis. Right lower lobe washing was performed with 20 mL of saline and thick yellow secretions were suctioned free and sent for culture analysis. I then performed a bilateral tracheobronchial tree inspection. No lesions or airway abnormalities otherwise were noted. Past majority of secretions were suctioned out with the bronchoscope. The scope was then completely withdrawn and the patient tolerated the procedure well. Recommendations: Large amount of right lower lobe and left lower lobe yellow secretions were as pirated and sent for culture. Speech therapy consultation will be ordered to evaluate for possible aspiration. Results of the bronchoscopy were discussed with the patient's mother over the phone. [facility] [place] Procedure Codes (Charges) Pulmonary/Thoracic Procedure 1: Pulmonary and Thoracic: 33183 Dx bronchoscopy/wash Sedation/Anesthesia Procedure 1: Sedation/Anesthesia: 88089 Mod Sedation by the same physician;Init15 Min Child Age 5 & Up
--- NOTE | 2024-09-13 12:27 | Hospitalist Progress Note ---
Date of Service September 13, 2024 Assessment & Plan (1) Acute hypoxic respiratory failure: (2) Multifocal pneumonia: (3) Mucus plugging of bronchi: (4) Neuromuscular respiratory weakness: (5) Chronic fibrosis of lung: (6) Chronic pain syndrome: (7) Pressure ulcer of toe of left foot, stage 3: (8) Quadriplegia: (9) Anxiety: (10) Depression: (11) History of DVT (deep vein thrombosis): Plan Patient is a 33yr female with PMH of cervical spine injury in 2011 with quadriplegia, DVT on Xarelto, recurrent/chronic pressure ulcer status post debridement and hamstring flap closure May 2021, anxiety, depression, spastic neurogenic bladder status suprapubic catheter, history of recurrent UTI, history of c diff who was sent in by recommendation of child care aide for IV antibiotics and bronchoscopy. Acute hypoxic respiratory failure Multifocal pneumonia Mucous plugging Recently admitted from 09/02- for RLL PNA and was discharged on Augmentin (completed 09/09), worsening overnight Saturating in mid-80s at home, improved to 94% on 3L NC --Chest CTA:No definite sign of pulmonary embolism. Right worse than left pneumonia, with concurrent bilateral lower lobe atelectasis. Right middle lobe collapse. Infectious secretions or other debris within the right mainstem bronchus and occlusion of the bilateral lower lobe bronchi. Small bilateral pleural effusions -- BioFire positive for parainfluenza --Legionella pending --S/P bronchoscopy with aspiration of secretions in the right lower lobe and left lower lobe on 09/13/2024 --Blood cultures pending --Bronchial washing studies pending Empirically on Zosyn Appreciate pulmonology input Continue pulmonary hygiene with flutter, chest PT, Mucinex Continue nebs Hx of Cdiff Continue home oral vancomycin Nonspecific abdominal distention --KUB: Nonspecific gaseous distention of redundant sigmoid colon and left colon Has been having bowel movements Monitor Cervical C-spine Injury with Quadriplegia Chronic pain syndrome Continue antispasmodics, pain regimen with morphine BID, PRN Percocet History of DVT Held Xarelto for procedure Resume Xarelto as able Recurrent/chronic pressure ulcer Status post debridement and hamstring flap closure May 2021, q2hr r eposition, waffle boots Chronic Stage III pressure ulcer to left ankle POA Daily Santyl, consult wound care (dressing last changed this AM) Anxiety/Depression Continue Duloxetine, Aripiprazole HS, PRN Ativan Spastic neurogenic bladder status suprapubic catheter and bowel Requires nightly enemas and disimpaction, suprapubic cath care History of recurrent UTI Continue Metamine hippurate DVT Px: Xarelto on hold Code status: FULL CODE Admission and Anticipated Discharge Date Admission Date: September 12, 2024 Subjective Patient is seen and examined at bedside States feeling very tired today Poor sleep overnight States having dyspnea associated with cough and nausea Had bronchoscopy earlier today Also states having some chest discomfort secondary to cough No other complaints Review of Systems Review of Systems: All systems reviewed & are unremarkable except as noted in Subjective Physical Exam Physical Exam: Physical Exam: Vitals signs as noted above General Appearance:Moderately built and nourished, no apparent distress Head: normocephalic, Atraumatic Eyes: normal inspection, EOMI Neck: supple, Trachea midline Respiratory/Chest: Decreased breath sounds, scattered crackles/wheeze, No accessory muscle use Cardiovascular: S1, S2, No murmur Abdomen/GI:Soft, Non tender, mildly distended, bowel sounds present,+ suprapubic catheter Extremities/Musculoskeletal:normal inspection, no edema Neurologic/Psych:AAOX3, B/L LE 0/5, UE 3/5 Skin: normal color, warm Results & Data Results & Data Vital Signs (Past 12 Hours) Vital Signs Temp Pulse Pulse Resp BP Pulse Ox O2 Del Method 09/13/24 12:20 105 H 16 128/74 96 Oxymask 09/13/24 12:15 113 H 16 123/75 100 Oxymask 09/13/24 12:14 109 H 16 131/85 96 Oxymask 09/13/24 12:08 103 H 16 132/94 96 Oxymask 09/13/24 11:40 86 18 99 Nasal Cannula 09/13/24 11:21 94 H 18 114/71 98 Nasal Cannula 09/13/24 10:38 36.6 C 86 22 111/76 97 Nasal Cannula 09/13/24 09:00 89 09/13/24 09:00 Nasal Cannula 09/13/24 07:44 37.4 C 88 26 H 119/84 96 Nasal Cannula 09/13/24 07:10 94 H 30 H 99 Nasal Cannula 09/13/24 03:42 36.5 C 92 H 37 H 118/81 94 Nasal Cannula O2 Flow Rate 09/13/24 12:20 10 09/13/24 12:15 10 09/13/24 12:14 6 09/13/24 12:08 6 09/13/24 11:40 4 09/13/24 11:21 09/13/24 10:38 3.5 09/13/24 09:00 09/13/24 09:00 3.5 09/13/24 07:44 3.5 09/13/24 07:10 5 09/13/24 03:42 5 Laboratory Results Short CBC 09/12/24 09/13/24 Range/Units 17:27 05:41 WBC 13.40 H 14.19 H (4.8-10.8) K/ul Hgb 12.3 11.6 L (12.0-16.0) g/dl Hct 36.9 L 35.7 L (37.0-47.0) % Plt Count 172 170 (130-400) K/uL BMP 09/12/24 09/13/24 17:27 05:41 Sodium 133 L 138 Potassium 3.9 3.6 Chloride 98 103 Carbon Dioxide 26 27 BUN 3 L 3 L Creatinine < 0.20 L < 0.20 L Glucose 100 H 109 H Calcium 9.2 8.8 Liver Function 09/12/24 Range/Units 17:27 Total Bilirubin 0.6 (0.2-1.0) mg/dl AST 13 (13-39) U/L ALT 12 (7-52) U/L Alkaline Phosphatase 69 (34-104) U/L Albumin 4.0 (3.4-5.0) gm/dl
[2024-09-13] MEDS: MIDAZOLAM HCL 5 MG/ML 1 ML VIAL ONE (13:23)
[2024-09-13] MEDS: fentaNYL citrate PF 100 MCG/2 ML VIAL ONE (13:23)
--- NOTE | 2024-09-13 13:26 | XRay Report ---
XR chest 1V portable CLINICAL HISTORY: s/p bronch COMPARISON STUDY: 09/07/2024 FINDINGS: Single view portable chest demonstrates no evidence for pneumothorax or pneumomediastinum. There is persistent airspace opacity in the right lower lobe associated with air bronchograms. There are a few air bronchograms in the left lower lobe seen to the cardiac silhouette and the left hemidia phragm is obscured. There is a MediPort catheter in place with the tip near the cavoatrial junction. IMPRESSION: No complication identified associated with bronchoscopy. Persistent bilateral airspace o pacities are noted. ACT 112: Negative or not required by law. Electronically signed by: Whitney Garber M.D. 09/13/2024 1:23 PM
[2024-09-13] MEDS: COLLAGENASE OINT 30 GM TUBE EXT SCH ×2 (13:28→20:09)
--- NOTE | 2024-09-13 13:29 | XRay Report ---
KUB HISTORY: abdominal distention COMPARISON STUDY: None pertinent FINDINGS: Single view abdomen demonstrates gaseous distention of a redundant sigmoid colon and left c olon. There is no bowel wall thickening or obvious free air although free air is difficult to visuali ze on this supine examination. There is no significant small bowel distention. There is no impaction. IMPRESSION: Nonspecific gaseous distention of redundant sigmoid colon and left colon ACT 112: Negative or not required by law. The above report was generated using voice recognition software. It may contain grammatical, syntax o r spelling errors. Electronically signed by: Whitney Garber M.D. 09/13/2024 1:28 PM
[2024-09-13] MEDS: DOCUSATE SODIUM 100 MG CAP PO SCH (15:12)
[2024-09-13 18:02] LABS: A calco-baum cmplx NotReported Not Detected (NotDetected); Bact fragilis Not Reported Not Detected (NotDetected); Blood Culture Id Panel See PCR Comment (NotDetected); C auris Not Reported Not Detected (NotDetected); Calbicans Not Reported Not Detected (NotDetected); Candida glabrata Not Reported Not Detected (NotDetected); Candida krusei Not Reported Not Detected (NotDetected); Cneoformans/gatti Not Reported Not Detected (NotDetected); Cparapsilosis Not Reported Not Detected (NotDetected); Ctropicalis Not Reported Not Detected (NotDetected); E cloacae compx Not Reported Not Detected (NotDetected); Efaecalis Not Reported Not Detected (NotDetected); Efaecium Not Reported Not Detected (NotDetected); Enterobacterales Not Reported Not Detected (NotDetected); Escherichia coli Not Reported Not Detected (NotDetected); H influenzae Not Reported Not Detected (NotDetected); K aerogenes Not Reported Not Detected (NotDetected); Koxytoca Not Reported Not Detected (NotDetected); Kpneumoniae grp Not Reported Not Detected (NotDetected); Lmonocyt Not Reported Not Detected (NotDetected); N meningitidis Not Reported Not Detected (NotDetected); P aeruginosa Not Reported Not Detected (NotDetected); Proteus spp Not Reported Not Detected (NotDetected); Salmonella spp Not Reported Not Detected (NotDetected); Staph lugdunensis Not Reported Not Detected (NotDetected); Staph spp. Not Reported Not Detected (NotDetected); Staphaureus Not Reported Not Detected (NotDetected); Staphepi Not Reported Not Detected (NotDetected); Stenmaltophilia Not Reported Not Detected (NotDetected); Strep agal(GrpB) Not Reported Not Detected (NotDetected); Strep pneum Not Reported Not Detected (NotDetected); Strep pyog (GrpA) Not Reported Not Detected (NotDetected); Strep spp Not Reported DETECTED (NotDetected)
[2024-09-13 18:13] LABS: Streptococcus spp DETECTED (NotDetected)
[2024-09-13] MEDS: CHERRY SYRUP 5 ML UDP PO SCH (20:05)
[2024-09-13] MEDS: VANCOMYCIN HCL 250 MG/5 ML SOLN PO SCH (20:06)
[2024-09-13] MEDS: VANCOMYCIN 125 MG PO SCH (20:06)
[2024-09-14] MEDS: SOD PHOSPHATE/SOD BIPHOSPHATE ENEMA 132 ML BTL PR PRN (00:29)
[2024-09-14 06:36] LABS: Hematocrit (blood only) 37.8 % (37.0-47.0); Hemoglobin 12.2 g/dl (12.0-16.0); Mean Corpuscular Hemoglobin 28.8 pg (25.0-34.0); Mean Corpuscular Hgb Conc 32.3 g/dL (32.0-36.0); Mean Corpuscular Volume 89.2 fL (80.0-100.0); Mean Platelet Volume 9.9 fL (9.4-12.4); Platelet Count 165 K/uL (130-400); RDW Coefficient of Variation 13.9 % (11.5-14.5); RDW Standard Deviation 45.4 fL (36.4-46.3); Red Blood Count 4.24 M/uL (4.20-5.40); White Blood Count 13.09 K/ul (4.8-10.8)
[2024-09-14 07:26] LABS: Anion Gap 12 (3-11); Calcium 9.1 mg/dl (8.6-10.3); Carbon Dioxide 27 mmol/L (21-32); Chloride 98 mmol/L (98-107); Magnesium 1.7 mg/dl (1.7-2.4); Potassium 3.2 mmol/L (3.5-5.1); Sodium 137 mmol/L (136-145)
[2024-09-14 07:37] LABS: Blood Urea Nitrogen 2 mg/dl (6-23); Glucose 99 mg/dl (70-99(Fasting))
[2024-09-14] MEDS: PROMETHAZINE 6.25 MG/50.25 ML BAG IV PRN (08:37)
[2024-09-14] MEDS: POTASSIUM CHLORIDE 10 MEQ TABCR PO SCH (08:42)
--- NOTE | 2024-09-14 14:41 | Hospitalist Progress Note ---
Date of Service September 14, 2024 Assessment & Plan (1) Acute hypoxic respiratory failure: (2) Multifocal pneumonia: (3) Mucus plugging of bronchi: (4) Neuromuscular respiratory weakness: (5) Chronic fibrosis of lung: (6) Chronic pain syndrome: (7) Pressure ulcer of toe of left foot, stage 3: (8) Quadriplegia: (9) Anxiety: (10) Depression: (11) History of DVT (deep vein thrombosis): Plan Patient is a 33yr female with PMH of cervical spine injury in 2011 with quadriplegia, DVT on Xarelto, recurrent/chronic pressure ulcer status post debridement and hamstring flap closure May 2021, anxiety, depression, spastic neurogenic bladder status suprapubic catheter, history of recurrent UTI, history of c diff who was sent in by recommendation of employee counselor for IV antibiotics and bronchoscopy. Acute hypoxic respiratory failure Multifocal pneumonia Mucous plugging Recently admitted from 09/02- for RLL PNA and was discharged on Augmentin (completed 09/09), worsening overnight Saturating in mid-80s at home --Chest CTA:No definite sign of pulmonary embolism. Right worse than left pneumonia, with concurrent bilateral lower lobe atelectasis. Right middle lobe collapse. Infectious secretions or other debris within the right mainstem bronchus and occlusion of the bilateral lower lobe bronchi. Small bilateral pleural effusions -- BioFire positive for parainfluenza --Legionella pending --S/P bronchoscopy with aspiration of secretions in the right lower lobe and left lower lobe on 09/13/2024 --Blood cultures--pending --Bronchial washing studies pending Empirically on Zosyn Appreciate pulmonology input Continue pulmonary hygiene with flutter, chest PT, Mucinex Continue nebs Symptomatically no significant improvement Weaned off of supplemental oxygen Obtain imaging as needed Resume home hypertonic saline nebs Will benefit from following with pulmonology on discharge Abnormal blood cultures 1/4 growing gram-positive cocci in chains Likely contamination Repeat blood cultures pending Empirically on Zosyn as above Hx of Cdiff Continue home oral vancomycin Hypokalemia Replace and monitor Nonspecific abdominal distention --KUB: Nonspecific gaseous distention of redundant sigmoid colon and left colon Has been having bowel movements Monitor Cervical C-spine Injury with Quadriplegia Chronic pain syndrome Continue antispasmodics, pain regimen with morphine BID, PRN Percocet History of DVT Held Xarelto for procedure Resume Xarelto Recurrent/chronic pressure ulcer Status post debridement and hamstring flap closure May 2021, q2hr reposition, waffle boots Chronic Stage III pressure ulcer to left ankle POA Daily Santyl, consult wound care (dressing last changed this AM) Anxiety/Depression Continue Duloxetine, Aripiprazole HS, PRN Ativan Spastic neurogenic bladder status suprapubic catheter and bowel Requires nightly enemas and disimpaction, suprapubic cath care History of recurrent UTI Continue Metamine hippurate DVT Px: Xarelto Code status: FULL CODE Admission and Anticipated Discharge Date Admission Date: September 12, 2024 Subjective Patient is seen and examined at bedside States her chest tightness is less when compared to yesterday Still has cough and dyspnea Also reports nausea but no vomiting today Weaned off of supplemental oxygen Review of Systems Review of Systems: All systems reviewed & are unremarkable except as noted in Subjective Physical Exam Physical Exam: Physical Exam: Vitals signs as noted above General Appearance:Moderately built and nourished, no apparent distress Head: normocephalic, Atraumatic Eyes: normal inspection, EOMI Neck: supple, Trachea midline Respiratory/Chest: Decreased coarse breath sounds, No accessory muscle use Cardiovascular: S1, S2, No murmur Abdomen/GI:Soft, Non tender, mildly distended, bowel sounds present,+ suprapubic catheter Extremities/Musculoskeletal:normal inspection, no edema Neurologic/Psych:AAOX3, B/L LE 0/5, UE 3/5 Skin: normal color, warm Results & Data Results & Data Vital Signs (Past 12 Hours) Vital Signs Temp Pulse Resp BP Pulse Ox O2 Del Method O2 Flow Rate 09/14/24 10:31 88 24 97 Room Air 09/14/24 09:52 Room Air, Nasal Cannula 2 09/14/24 07:51 36.4 C L 97 H 21 140/94 94 Room Air 09/14/24 07:27 85 22 94 Room Air FiO2 09/14/24 10:31 09/14/24 09:52 09/14/24 07:51 09/14/24 07:27 21 Laboratory Results Short CBC 09/14/24 Range/Units 06:09 WBC 13.09 H (4.8-10.8) K/ul Hgb 12.2 (12.0-16.0) g/dl Hct 37.8 (37.0-47.0) % Plt Count 165 (130-400) K/uL BMP 09/14/24 06:09 Sodium 137 Potassium 3.2 L Chloride 98 Carbon Dioxide 27 BUN 2 L Creatinine < 0.20 L Glucose 99 Calcium 9.1
--- NOTE | 2024-09-14 14:53 | Pulmonology Progress Note ---
Date of Service September 14, 2024 Assessment & Plan (1) Multifocal pneumonia: (2) Parainfluenza: (3) Mucus plugging of bronchi: (4) Acute hypoxic respiratory failure: (5) Dyspnea: (6) Severe muscle deconditioning: Plan Patient with viral bronchitis and superimposed bacterial pneumonia and possible aspiration. CT chest personally reviewed from 09/12/2024 with evidence of right middle lobe collapse, debris in the bronchus intermedius and lower lobe bronchi. Also evidence of left-sided pneumonia. Agree with Zosyn. MRSA screen was negative. Bronchoscopy performed 09/13/2024 with copious viscous secretions noted bilaterally. Culture data pending. Patient endorsing dyspnea today despite improvement of hypoxemia. Will proceed with chest x-ray to evaluate for pneumothorax although unlikely. Suspect an element of psychogenic dyspnea. Continue efforts at mucociliary clearance with CoughAssist device, percussive vest therapy and hypertonic saline. Patient severely weak and deconditioned likely contributing to her recurrent pneumonia. PT consult ordered. LUBE MAN evaluation noted. Video swallow study is ordered and may need to be completed as an outpatient. Admission and Anticipated Discharge Date Admission Date: September 12, 2024 Subjective Patient off supplemental oxygen at this time and saturating well on room air. Patient states she feels short of breath even at rest. She has a cough without much sputum production. No fevers or chills. Review of Systems Review of Systems: All systems reviewed & are unremarkable except as noted in HPI & below Physical Exam Physical Exam: Constitutional: Patient appears to be of their stated age. Patient is in no apparent distress. She is in a powered wheelchair. Eyes: Pupils are equal round and reactive to light. Conjunctivae are normal. Anicteric sclera. Ears nose, mouth and throat: No perioral cyanosis. Neck: Trachea is midline. Prior tracheostomy site noted with scarring. Respiratory: Crackles and diminishment bilaterally in the lower lobes. Tachypneic. Cardiovascular: Regular rate and rhythm. No murmurs. No edema. Gastrointestinal: Mildly distended abdomen. Bloated. No tenderness to palpation. Suprapubic catheter in place. Musculoskeletal: No cyanosis. Mild contractures noted of the bilateral hands. Extremities intact. Skin: No rashes, warm dry and intact. 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 Psychiatric: Alert and oriented x3 with flat affect and depressed mood. Results & Data Results & Data Vital Signs (Past 12 Hours) Vital Signs Temp Pulse Resp BP Pulse Ox O2 Del Method O2 Flow Rate 09/14/24 10:31 88 24 97 Room Air 09/14/24 09:52 Room Air, Nasal Cannula 2 09/14/24 07:51 36.4 C L 97 H 21 140/94 94 Room Air 09/14/24 07:27 85 22 94 Room Air FiO2 09/14/24 10:31 09/14/24 09:52 09/14/24 07:51 09/14/24 07:27 21 PG Care Time/CCT Total # of Minutes Spent Total Time Spent with Patient: Total time spent is greater than 50% in coordination of care (as documented) at patient's floor/unit and/or counseling patient: Coding Level of Care Code 28247 SUB INP/OBS CARE 2/35MIN Diagnoses Multifocal pneumonia J18.9 Parainfluenza B34.8 Mucus plugging of bronchi T17.500A Acute hypoxic respiratory failure J96.01 Dyspnea R06.00 Severe muscle deconditioning R29.898
--- NOTE | 2024-09-14 15:18 | XRay Report ---
XR chest 1V portable CLINICAL HISTORY: Dyspnea COMPARISON STUDY: 09/13/2024 FINDINGS: The right lung base remains unchanged with persistent atelectasis and/or consolidation at t he right base in association with a small right pleural effusion. The left base is slightly improved with less radiographic evidence of atelectasis. There is persistent abnormal retrocardiac density and blunting of the left costophrenic angle. There is no pneumothorax. The MediPort catheter tip is near the cavoatrial junction as before. IMPRESSION: Stable right lung opacity as described. Slightly improved aeration at the left lung base ACT 112: Negative or not required by law. Electronically signed by: Whitney Garber M.D. 09/14/2024 3:17 PM
[2024-09-14] MEDS: LORazepam 0.5 MG TAB PO PRN (20:35)
[2024-09-14] MEDS: traZODone HCL 50 MG TAB PO PRN (20:35)
[2024-09-15] MEDS: NALOXONE HCL 0.4 MG/1 ML VIAL/CARP IV STA ×3 (03:37→05:09)
[2024-09-15] MEDS: NALOXONE HCL 0.4 MG/1 ML VIAL/CARP ONE (03:37)
--- NOTE | 2024-09-15 03:42 | Communication Note ---
Date of Service: September 15, 2024 3:30 AM Patient lethargic and sounds terrible as per RN. No aspiration concerns as per RN. PPE Obtunded, respiratory distress Nasal cannula in place Tachycardic Expiratory wheezes AP Encephalopathy likely secondary to polypharmacy (Baclofen, gabapentin, trazodone, morphine sulfate, lorazepam at 8:30 PM last night) Narcan trial Flumazenil trial if without response to Narcan Appropriate to hold antispasmodics, neuropsychotropic, and narcotic meds for now Will benefit from medication management review CT head if no improvement in mentation
[2024-09-15] MEDS: LEVALBUTEROL 1.25 MG/3 ML NEB NEB STA (03:59)
[2024-09-15] MEDS: IPRATROPIUM BROMIDE NEB SOLN 0.02% 0.5MG/2.5ML VIAL INH STA (04:00)
[2024-09-15] MEDS: MAGNESIUM SULFATE / D5W 1 GM/100 ML BAG IV ONE (04:08)
[2024-09-15] MEDS: FLUMAZENIL 0.1 MG/1 ML 10 ML VIAL IV STA (04:38)
[2024-09-15 05:01] LABS: Base Excess VBG 3.7 mEq/L; HCO3 VBG 31 mmol/L; Oxygen Saturation VBG 93.6 %; PCO2 VBG 54 mmHg (38-50); PO2 VBG 63 mmHg; pH VBG 7.36 (7.36-7.41)
[2024-09-15 05:13] LABS: Basophils # (auto) 0.04 K/uL (0.00-0.20); Basophils % (auto) 0.4 %; Eosinophils # (auto) 0.03 K/uL (0.00-0.50); Eosinophils % (auto) 0.3 %; Hematocrit (blood only) 36.9 % (37.0-47.0); Immature Granulocytes # (auto) 0.13 K/uL (0.01-0.20); Immature Granulocytes % (auto) 1.2 %; Lymphocytes # (auto) 1.19 K/uL (1.20-3.40); Lymphocytes % (auto) 11.3 %; Mean Corpuscular Hemoglobin 28.8 pg (25.0-34.0); Mean Corpuscular Hgb Conc 32.5 g/dL (32.0-36.0); Mean Corpuscular Volume 88.7 fL (80.0-100.0); Mean Platelet Volume 9.9 fL (9.4-12.4); Monocytes # (auto) 0.81 K/uL (0.11-0.59); Monocytes % (auto) 7.7 %; Neutrophils # (auto) 8.35 K/uL (1.40-6.50); Neutrophils % (auto) 79.1 %; Platelet Count 181 K/uL (130-400); RDW Coefficient of Variation 13.7 % (11.5-14.5); RDW Standard Deviation 44.3 fL (36.4-46.3); Red Blood Count 4.16 M/uL (4.20-5.40); White Blood Count 10.55 K/ul (4.8-10.8)
--- NOTE | 2024-09-15 05:15 | XRay Report ---
EXAM: XR chest 1V portable CLINICAL HISTORY: low O2 TECHNIQUE: An X-ray image of the chest is obtained in AP projection. COMPARISON: 09/13/2024. FINDINGS: Pulmonary Parenchyma: Right central venous line reaching the atriocaval junction Obliterated left costophrenic angle with left lower zone opacities likely by mild pleural effusion, underlying relaxation collapse, and possibly inflammatory changes Redemonstration of the right lower lung zone opacity, obscuring the right costophrenic angle with a slight improvement of the middle zone opacity on the right side Heart and Mediastinum: Cardiac size cannot be properly assessed. No mediastinal widening or masses. No hilar or mediastinal lymphadenopathy. Bony Thorax: Bony thorax appears intact without fractures or deformities. Soft Tissues: Soft tissues overlying the chest wall are unremarkable. Internal fixation of the cervico-dorsal vertebrae IMPRESSION: 1. Right central venous line reaching the atriocaval junction. Stable. 2. Obliterated left costophrenic angle with left lower zone opacities likely by mild pleural effusion, underlying relaxation collapse and possibly inflammatory changes. More prominent in the current examination. 3. Redemonstration of the right lower lung zone opacity, obscuring the right costophrenic angle with slight improvement of the middle zone opacity on the right side Electronically signed by Adolfo Bennett 09-15-2024 05:15 AM
[2024-09-15 05:31] LABS: Anion Gap 6 (3-11); Carbon Dioxide 32 mmol/L (21-32); Chloride 97 mmol/L (98-107); Magnesium 1.9 mg/dl (1.7-2.4); Potassium 3.8 mmol/L (3.5-5.1); Sodium 135 mmol/L (136-145)
[2024-09-15 05:34] LABS: Partial Thromboplastin Time 28 Seconds (21-31)
[2024-09-15 06:09] LABS: Blood Urea Nitrogen 2 mg/dl (6-23); Glucose 162 mg/dl (70-99(Fasting))
--- NOTE | 2024-09-15 07:12 | CT Scan Report ---
EXAM: CT head/brain wo con CLINICAL HISTORY: ams TECHNIQUE: Multiple axial images are obtained from the skull base to the vertex without contrast. CT scan was performed according to ALARA (as low as reasonable achievable). COMPARISON: none FINDINGS: Sub optimal evaluation due to beam hardening artifact from below the level of basal ganglia till skull base. The brain shows normal morphology, attenuation, and volume for age. No evidence of space occupying lesion, hemorrhage, edema, mass effect, midline shift, extra axial collection, or hydrocephalus is noted. Ventricles, sulci, and basal cisterns are symmetric and normal in size and configuration. The lopez-white matter differentiation is preserved. Air-fluid levels in bilateral maxillary sinuses. Rest of the vsualized paranasal sinuses and mastoid air cells are well aerated. Orbital contents are within normal limits. Bony structures are intact. IMPRESSION: 1. Sub optimal evaluation due to beam hardening artifact from below the level of basal ganglia till skull base. 2. No evidence of acute intracranial abnormality is demonstrated to the visualised extent. 3. Air-fluid levels in bilateral maxillary sinuses.- likely acute sinusitis Electronically signed by Neal Onofre 09-15-2024 07:12 AM
--- NOTE | 2024-09-15 08:04 | Hospitalist Progress Note ---
Date of Service September 15, 2024 Assessment & Plan (1) Acute hypoxic respiratory failure: (2) Multifocal pneumonia: (3) Mucus plugging of bronchi: (4) Neuromuscular respiratory weakness: (5) Chronic fibrosis of lung: (6) Chronic pain syndrome: (7) Pressure ulcer of toe of left foot, stage 3: (8) Quadriplegia: (9) Anxiety: (10) Depression: (11) History of DVT (deep vein thrombosis): Plan Patient is a 33yr female with PMH of cervical spine injury in 2011 with quadriplegia, DVT on Xarelto, recurrent/chronic pressure ulcer status post debridement and hamstring flap closure May 2021, anxiety, depression, spastic neurogenic bladder status suprapubic catheter, history of recurrent UTI, history of c diff who was sent in by recommendation of webfocus developer for IV antibiotics and bronchoscopy. Acute hypoxic respiratory failure Multifocal pneumonia Mucous plugging Recently admitted from 09/02- for RLL PNA and was discharged on Augmentin (completed 09/09), worsening overnight Saturating in mid-80s at home --Chest CTA:No definite sign of pulmonary embolism. Right worse than left pneumonia, with concurrent bilateral lower lobe atelectasis. Right middle lobe collapse. Infectious secretions or other debris within the right mainstem bronchus and occlusion of the bilateral lower lobe bronchi. Small bilateral pleural effusions --Repeat Chest CTA: No PE. Bilateral lower lobe bronchi are occluded by secretions with progressive near complete consolidation of bilateral lower lobes. Upper lobe opacities with infectious/inflammatory morphology. -- BioFire positive for parainfluenza --Legionella pending --S/P bronchoscopy with aspiration of secretions in the right lower lobe and left lower lobe on 09/13/2024 --Blood cultures--as below --Bronchial washing studies: Negative to date Continue Zosyn Appreciate pulmonology input Continue pulmonary hygiene with flutter, chest PT, Mucinex Continue nebs Supplemental oxygen as needed Likely aspiration contributing Plan for video swallow study on Wednesday Continue aspiration precautions Consulted ID as well Strep Bacteremia--POA --Repeat Blood cultures negative to date Continue Zosyn Likely need to complete 2-week course of antibiotics Altered mental status Likely secondary to polypharmacy --MRI Brain:No acute intracranial abnormality. No acute or subacute infarct. -- No significant hypercarbia on ABG --Normal ammonia level --Held sedating medications --Plan to resume home medications as able Aspiration precautions Hx of Cdiff Continue home oral vancomycin Hypokalemia Replace and monitor Nonspecific abdominal distention --KUB: Nonspecific gaseous distention of redundant sigmoid colon and left colon Has been having bowel movements Monitor Cervical C-spine Injury with Quadriplegia Chronic pain syndrome Continue antispasmodics, pain regimen with morphine BID, PRN Percocet History of DVT Held Xarelto for procedure Resumed Xarelto Recurrent/chronic pressure ulcer Status post debridement and hamstring flap closure May 2021, q2hr reposition, waffle boots Chronic Stage III pressure ulcer to left ankle POA Daily Santyl, consult wound care (dressing last changed this AM) Anxiety/Depression Continue Duloxetine, Aripiprazole HS, PRN Ativan Spastic neurogenic bladder status suprapubic catheter and bowel Requires nightly enemas and disimpaction, suprapubic cath care History of recurrent UTI Continue Metamine hippurate DVT Px: Xarelto Code status: FULL CODE Admission and Anticipated Discharge Date Admission Date: September 12, 2024 Subjective Patient is seen and examined at bedside Patient very lethargic overnight but slightly improved this morning Continues to have chest tightness and dyspnea Updated patient's mother in detail over the phone Poor historian secondary to mental status today Physical Exam Physical Exam: Physical Exam: Vitals signs as noted above General Appearance:Moderately built and nourished, no apparent distress Head: normocephalic, Atraumatic Eyes: normal inspection, EOMI Neck: supple, Trachea midline Respiratory/Chest: Decreased coarse breath sounds, No accessory muscle use Cardiovascular: S1, S2, No murmur Abdomen/GI:Soft, Non tender, mildly distended, bowel sounds present,+ suprapubic catheter Extremities/Musculoskeletal:normal inspection, no edema Neurologic/Psych:AAOX3, B/L LE 0/5, UE 3/5 Skin: normal color, warm Results & Data Results & Data Vital Signs (Past 12 Hours) Vital Signs Temp Pulse Pulse Resp BP Pulse Ox O2 Del Method 09/15/24 07:46 Nasal Cannula 09/15/24 04:00 87 22 98 Nasal Cannula 09/15/24 03:31 106 H 24 138/75 96 Nasal Cannula 09/15/24 02:51 36.7 C 103 H 29 H 122/98 94 Nasal Cannula 09/14/24 23:26 36.4 C L 108 H 30 H 129/92 92 Nasal Cannula 09/14/24 21:30 113 H O2 Flow Rate 09/15/24 07:46 2 09/15/24 04:00 2 09/15/24 03:31 2 09/15/24 02:51 2 09/14/24 23:26 2 09/14/24 21:30
[2024-09-15 08:32] LABS: iSTAT Arterial Blood Gas HCO3 31 meg/L (19-24); iSTAT Arterial Blood Gas pCO2 53 mmHg (35-46); iSTAT Arterial Blood Gas pH 7.38 (7.35-7.45); iSTAT Arterial Blood Gas pO2 70 mmHg (80-95); iSTAT Carbon Dioxide 33 mmol/L (24-31); iSTAT Hematocrit 37 % (37-47); iSTAT Hemoglobin 12.6 g/dl (12.0-16.0); iSTAT Potassium 3.8 mmol/L (3.3-5.0); iSTAT Sodium 136 mmol/L (135-144)
[2024-09-15] MEDS: NORETHINDRONE PO SCH (08:37)
[2024-09-15] MEDS: [UNRECOGNIZED DRUG - OTHER] PO SCH (08:37)
[2024-09-15] MEDS: OPTIRAY 320 125ml IV ONE (09:24)
--- NOTE | 2024-09-15 09:53 | CT Scan Report ---
CT angio chest PE protocol CT DOSE: 647.32 mGy.cm HISTORY: PE. TECHNIQUE: Multiple CTA images of the chest were obtained after the intravenous administration of 120 ml Optiray. Coronal and sagittal MIPS were obtained from the axial data set and were submitted for review. All measurements were obtained according to NASCET criteria. A dose lowering technique was u tilized adhering to the principles of ALARA. COMPARISON STUDY: 09/12/2024 FINDINGS: There is occlusion of the right lower lobe bronchus by secretions with near complete consol idation of the right lower lobe, increased. There is near occlusion of the left lower lobe bronchus b y secretions with near complete consolidation of the left lower lobe, increased. There are reticular nodular and patchy groundglass opacities at the upper lung lobes, right greater than left. No pneumot horax. There are trace pleural effusions. No enlarged adenopathy. No thoracic aortic dissection or an eurysm. No pulmonary embolism. No acute osseous findings. IMPRESSION: 1. No pulmonary embolism. 2. Bilateral lower lobe bronchi are occluded by secretions with progressive near-complete consolidati on of bilateral lower lobes. There are also upper lobe opacities with infectious/inflammatory morphol ogy. 3. Otherwise as described. ACT 112: Negative or not required by law. The above report was generated using voice recognition software. It may contain grammatical, syntax o r spelling errors. Electronically signed by: Andrew Villagran M.D. 09/15/2024 9:51 AM
--- NOTE | 2024-09-15 09:59 | Infectious Disease Consult ---
Date of Service September 15, 2024 Telehealth Information I performed this visit using a real-time telehealth connection between my location and the patients location ([facility]). After connecting through interactive tele-video, patient was identified by name and date of and/or wristband check.Patient (or authorized healthcare leasing representative) was informed that this was a telemedicine visit and it was being conducted confidentially over secure lines. My office door was closed and no on e else was present in the room with me.Patient (or authorized healthcare leasing representative) provided consent to proceed with the visit, expressed an understanding of privacy and security of the telemedicine visit, and gave permission to have a hospital leasing representative in the room in order to assist with the visit and to conduct portions of the visit, as needed. I informed the patient (or authorized healthcare leasing representative) that I reviewed their record and presented the opportunity for them to ask any questions regarding the visit today. The patient agreed to participate. Strep bacteremia Assessment & Plan (1) Parainfluenza: Plan: Symptomatic treatment (2) Multifocal pneumonia: Plan: Switch to vancomycin (3) Bacteremia due to Streptococcus: Plan: Switch to vancomycin follow up TTE Plan Patient with cough and worsening SOB found to have multifocal pneumonia on imaging s/p bronchoscopy NGTD on zosyn .Based on her blood culture that grew a alpha strep species would recommend discontinuing zosyn and starting penicillin pending finalization of her cultures .Follow up TTE She will likely require 14 days of antibiotics if TTE is negative as BC are NGTD .Thank you for allowing us to participate in the care of this patient ID will continue to follow History of Present Illness History of Present Illness 33yo F PMHx of cervical spine injury in 2011 c/b quadriplegia, DVT on Xarelto, recurrent/chronic pressure ulcer status post debridement and hamstring flap closure May 2021, anxiety, depression, spastic neurogenic bladder status suprapubic catheter, history of recurrent UTI, history of c diff who was sent in by recommendation of cover assembler for IV antibiotics and bronchoscopy. Patient was recently admitted from 09/02- for RLL PNA and was discharged on Augmentin to complete course.Patient reports she has felt better since discharge and completed her Augmentin course last weekend. She was seen by her to PCP for hospital follow up and felt okay until she returned home in the afternoon she developed a cough which worsened with SOB .When it was noted that her Oxygen saturations had dropped to mid-80s the patient's mother called Dr. Hunt, who ordered a CTA chest that revealed R>L PNA with concurrent bilateral lobe atelectasis, R middle lobe collapse, infectious secretions or other debris within R mainstem bronchus and occlusion of the bilateral lower lobe bronchi. No definite sign of pulmonary embolism. Dr. Hunt directed patient to hospital for IV abx and bronchoscopy . Patient was started on zosyn as MRSA nares was negative and so far her bronchoscopy has not grown any organisms but her blood culture grew a alpha strep species and her respiratory panal was positive for parainfluenza Allergies Allergy/AdvReac Type Severity Reaction Status Date / Time cefepime Allergy Severe Anaphylaxis Verified 09/12/24 17:43 fentanyl Allergy Intermediate Itchiness, Verified 09/12/24 17:43 Rash levofloxacin Allergy Intermediate Rash Verified 09/12/24 17:43 vancomycin Allergy Intermediate Rash Verified 09/12/24 17:43 imipenem AdvReac Severe Seizure Verified 09/12/24 17:43 Home Medications Medication Instructions Recorded Confirmed Type ascorbic acid (vitamin C) 1,000 mg 1 g PO BID 03/07/18 09/12/24 History tablet dantrolene 100 mg capsule 100 mg PO TID 03/07/18 09/12/24 History fluticasone propionate 50 2 spray intranasal QAM PRN 03/07/18 09/12/24 History mcg/actuation nasal allergies spray,suspension (Flonase Allergy Relief) rivaroxaban 20 mg tablet (Xarelto) 20 mg PO QAM 03/07/18 09/12/24 History nystatin 100,000 unit/gram topical 1 applic topical BID PRN Skin 03/18/18 09/12/24 History powder Irritation baclofen 20 mg tablet 20 mg PO QID 12/28/18 09/12/24 History duloxetine 60 mg capsule,delayed 60 mg PO BID 02/02/19 09/12/24 History release (Cymbalta) baclofen 10 mg tablet 10 mg PO QID 09/25/19 09/12/24 History docusate sodium 283 mg/5 mL enema 283 mg ID HS 09/25/19 09/12/24 History (Enemeez) potassium chloride 10 mEq 10 meq PO BID 09/29/20 09/12/24 History capsule,extended release acetaminophen 500 mg tablet 1,000 mg PO Q6H PRN Fever Or Pain 01/07/21 09/12/24 History (Tylenol Extra Strength) epinephrine 0.3 mg/0.3 mL 0.3 mg (0.3 mL) IM ONCE PRN 01/07/21 09/12/24 Rx injection, auto-injector (EpiPen anaphylaxis #1 ea 2-Fam) oxycodone-acetaminophen 10 mg-325 1 tab PO BID PRN Pain 01/07/21 09/15/24 History mg tablet citric ac 1980.6 mg-glucono 59.4 30 ml irrigation 3XWK #900 mL 12/11/21 09/12/24 Rx mg-mag carb 980.4 mg/30 mL irrig.soln (Renacidin) hydroxyzine HCl 25 mg tablet 25 mg PO HS PRN hyperactivity 12/15/22 09/12/24 H istory Flutter Valve #1 ea 12/23/22 09/07/24 Rx Incentive Spirometer #1 ea 12/23/22 09/07/24 Rx morphine 15 mg tablet,extended 15 mg PO AMHS 11/27/23 09/12/24 History release aripiprazole 2 mg tablet (Abilify) 1 mg PO QAM 03/01/24 09/12/24 History gabapentin 300 mg capsule 300 mg PO QID 03/01/24 09/12/24 History gabapentin 600 mg tablet 600 mg PO QID 03/01/24 09/12/24 History docusate sodium 100 mg capsule 100 mg PO DAILY@1600 08/27/24 09/12/24 History methenamine hippurate 1 gram tablet 1 g PO BID 08/27/24 09/12/24 History norethindrone (contraceptive) 0.35 0.35 mg PO DAILY 08/27/24 09/12/24 History mg tablet (Jencycla) compressor, for nebulizer #1 ea 08/28/24 09/07/24 Rx ipratropium 0.5 mg-albuterol 3 mg 3 ml inhalation QID PRN wheezing 08/28/24 09/12/24 Rx (2.5 mg base)/3 mL nebulization #180 mL soln nebulizer accessories (A.I.R.S. #50 ea 08/28/24 09/07/24 Rx Nebulizer Replacement kit) collagenase clostridium histo. 250 1 applic EXT DAILY #90 grams 09/04/24 09/12/24 Rx unit/gram topical ointment (Santyl) guaifenesin 600 mg tablet, 1,200 mg (2 x 600 mg) PO Q12H #100 09/04/24 09/12/24 Rx extended release 12 hr (Mucinex) tabs sodium chloride 7 % for 4 ml NEB BIDR #120 mL 09/07/24 09/12/24 Rx nebulization vancomycin 250 mg capsule 250 mg PO QAM 09/07/24 09/12/24 History (Vancocin) Patient History Medical History Open wound of right hand [facility] Stage III pressure ulcer of ankle Left - [facility] Neuromuscular respiratory weakness [facility] [place] History of MRSA infection 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, 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 ago Autonomic dysreflexia History of Clostridioides difficile colitis per PAT RN notation "resolved, recently tested and negative" first entered into EMR 2022 History of cervical fracture History of DVT (deep vein thrombosis) upper zagmrkvwn-Eghvknt-sbuuznd into EMR in 2014 correction (current) use of anticoagulants Xarelto Pressure ulcer of toe of left foot following with wound clinic Quadriplegia history C4 fracture Restrictive lung mechanics due to neuromuscular disease atelectasis - [facility] [place] Suprapubic catheter Former smoker Anxiety and depression Chronic osteomyelitis sacrum per previous records Bladder stones Hx of pneumothorax Hx with chest tube. Treated at [facility]> 6 ys ago Environmental allergies Seasonal and environmental allergies History of seizure 2013 - due to BP issue and autonomic dysreflexia > none since Port-A-Cath in place 06/15/18 power port Neurogenic bladder Surgical History History of fusion of cervical spine ACDF "C5-C7, C3-T2" Hx of surgical procedure Debridement of Stage 4 Ischial Pressure Ulcer with Hamstring Flap Closure History of myringotomy Bilateral Status post amputation of toe second toe, right foot. 07/2019. S/P cystoscopy with botox injections Hx of wisdom tooth extraction History of urostomy Subsequent Removal Hx of tracheostomy since removed History of bowel resection 2/2 Obstruction/Scar Tissue History of appendectomy S/P thoracentesis PEG (percutaneous endoscopic gastrostomy) status Subsequent Removal Family History Father Diabetes Brother Depression Other No family history of adverse response to anesthesia Social History Smoking Status: Never smoker Tobacco Type: Cigarettes Age Started Using Tobacco: 18; Age Quit Using Tobacco: 28; packs per day: 1; Second Hand Exposure: No; Do You Dip or Chew Tobacco: No; Hx Alcohol Use: No Hx Substance Use: No Preferred Language: Kuwaiti Communication Ability: Effective Visual Impairment: Limited Hearing Ability: Normal President Required: No Beliefs That Will Affect Care: None marital status: Single Current Living Situation: Family Current Living Situation Comment: Mother And Father current occupational status: disabled How many Children do You have: 0 Feels Safe at Home: Yes Safety Concerns: Feels Safe At This Time Childhood Exposure to Second-Hand Smoke: No Diet: regular during the past year weight has: remained stable Physical Activity Frequency: Does not Exercise Seatbelt Use: always Assistive Devices: Hospital Bed, Mechanical Lift, Oxygen - Continuous, Scooter/Electric Scooter and Wheelchair Review of Systems On nasal cannula Physical Exam Awake alert oriented ill looking Results & Data Vital Signs (Past 12 Hours) Vital Signs Temp Pulse Resp BP Pulse Ox O2 Del Method O2 Flow Rate 09/15/24 08:22 36.6 C 102 H 21 129/93 98 Nasal Cannula 2 09/15/24 08:05 100 H 29 H 96 Nasal Cannula 3 09/15/24 07:46 Nasal Cannula 2 09/15/24 04:00 87 22 98 Nasal Cannula 2 09/15/24 03:31 106 H 24 138/75 96 Nasal Cannula 2 09/15/24 02:51 36.7 C 103 H 29 H 122/98 94 Nasal Cannula 2 09/14/24 23:26 36.4 C L 108 H 30 H 129/92 92 Nasal Cannula 2 Laboratory Results No leukocytosis Diagnostic Findings IMPRESSION: 1. No pulmonary embolism. 2. Bilateral lower lobe bronchi are occluded by secretions with progressive near-complete consolidation of bilateral lower lobes. There are also upper lobe opacities with infectious/inflammatory morphology. 3. Otherwise as described.
[2024-09-15] MEDS: RIVAROXABAN 20 MG TAB PO SCH (10:08)
--- NOTE | 2024-09-15 13:20 | Magnetic Resonance Report ---
MR brain wo con HISTORY: 33 years-old Female altered mental status acutely altered mental status COMPARISON: Head CT of same day TECHNIQUE: Multiplanar multisequence MRI of the brain was obtained without IV contrast FINDINGS: No restricted diffusion to suggest acute or subacute infarct. Midline structures appear unremarkable. There is no acute intracranial hemorrhage, midline shift, hydrocephalus or intra-axial mass. Normal volume and signal characteristics of the brain parenchyma. Cerebral venous sinuses and major arterial flow voids appear patent. The cerebral venous sinuses and major arterial flow voids appear patent. Small mastoid effusions. Mil d to moderate mucosal thickening of the maxillary sinuses with layering air-fluid levels. Moderate mu cosal thickening of the ethmoid air cells. Skull, orbits and soft tissues are within normal limits. C ervical spinal fusion hardware. IMPRESSION: 1. No acute intracranial abnormality. No acute or subacute infarct. 2. Moderate acute paranasal sinus disease. ACT 112: Negative or not required by law. The above report was generated using voice recognition software. It may contain grammatical, syntax o r spelling errors. Electronically signed by: William Dickson M.D. 09/15/2024 1:18 PM
--- NOTE | 2024-09-15 17:11 | Pulmonology Progress Note ---
Date of Service September 15, 2024 Assessment & Plan (1) Multifocal pneumonia: (2) Parainfluenza: (3) Mucus plugging of bronchi: (4) Acute hypoxic respiratory failure: (5) Dyspnea: (6) Severe muscle deconditioning: Plan Patient with viral bronchitis and superimposed bacterial pneumonia and possible aspiration. CT chest personally reviewed from 09/12/2024 with evidence of right middle lobe collapse, debris in the bronchus intermedius and lower lobe bronchi. Also evidence of left-sided pneumonia. ID consult due to alpha strep isolated blood culture. Antibiotics to ID. Bronchoscopy performed 09/13/2024 with copious viscous secretions noted bilaterally. Culture data negative thus far. Patient with persistent bibasilar infiltrates and significant inspissated mucus bilaterally on repeat CT chest. Will proceed with bronchoscopy tomorrow 09/16/24. N.p.o. status. Patient and patient's mother understand the risks and benefits of repeated bronchoscopy I would like to proceed to help with airway clearance. Continue efforts at mucociliary clearance with CoughAssist device, percussive vest therapy and hypertonic saline. Patient severely weak and deconditioned likely contributing to her recurrent pneumonia. PT consult ordered. RESEARCH GENETICIST evaluation noted. Video swallow study is ordered and may need to be completed as an outpatient. Admission and Anticipated Discharge Date Admission Date: September 12, 2024 Subjective Patient seen examined this morning. She remains very lethargic. She had a rough night last night and had periodic episodes of dyspnea along with poor sleep. She had a stat CT chest ordered today to rule out pulmonary embolism as her anticoagulation was briefly held for prior bronchoscopy. There was no pulmonary embolism identified. She does have a recurrence of significant bibasilar infiltrates with secretions noted in the bilateral airways. She is currently on room air and eating her dinner. Her appetite is very poor. Review of Systems Review of Systems: All systems reviewed & are unremarkable except as noted in HPI & below Physical Exam Physical Exam: Constitutional: Patient appears to be of their stated age. Patient is in no apparent distress. She is in a powered wheelchair. Eyes: Pupils are equal round and reactive to light. Conjunctivae are normal. Anicteric sclera. Ears nose, mouth and throat: No perioral cyanosis. Neck: Trachea is midline. Prior tracheostomy site noted with scarring. Respiratory: Crackles and diminishment bilaterally in the lower lobes. Tachypneic. Cardiovascular: Regular rate and rhythm. No murmurs. No edema. Gastrointestinal: Mildly distended abdomen. Bloated. No tenderness to palpation. Suprapubic catheter in place. Musculoskeletal: No cyanosis. Mild contractures noted of the bilateral hands. Extremities intact. Skin: No rashes, warm dry and intact. 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 Psychiatric: Alert and oriented x3 with flat affect and depressed mood. Results & Data Results & Data Vital Signs (Past 12 Hours) Vital Signs Temp Pulse Resp BP Pulse Ox O2 Del Method O2 Flow Rate 09/15/24 16:59 76 20 90 Room Air 09/15/24 16:42 36.5 C 91 H 17 135/93 91 Nasal Cannula 3 09/15/24 12:51 36.3 C L 97 H 17 131/97 96 Nasal Cannula 3 09/15/24 11:24 87 18 95 Nasal Cannula 2 09/15/24 08:22 36.6 C 102 H 21 129/93 98 Nasal Cannula 2 09/15/24 08:05 100 H 29 H 96 Nasal Cannula 3 09/15/24 07:46 Nasal Cannula 2 FiO2 09/15/24 16:59 21 09/15/24 16:42 09/15/24 12:51 09/15/24 11:24 09/15/24 08:22 09/15/24 08:05 09/15/24 07:46 PG Care Time/CCT Total # of Minutes Spent Total Time Spent with Patient: Total time spent is greater than 50% in coordination of care (as documented) at patient's floor/unit and/or counseling patient: Coding Level of Care Code 88741 SUB INP/OBS CARE 3/50MIN Diagnoses Multifocal pneumonia J18.9 Parainfluenza B34.8 Mucus plugging of bronchi T17.500A Acute hypoxic respiratory failure J96.01 Dyspnea R06.00 Severe muscle deconditioning R29.898
[2024-09-15] MEDS: SODIUM CHLOR 7% 4 ML NEB NEB SCH (19:15)
--- NOTE | 2024-09-15 20:10 | Communication Note ---
Date of Service: September 15, 2024 Patient requesting for medicine for chronic pain from RN. Patient mentation improved from this morning as per RN. Resume home MS Contin and low-dose gabapentin for now. Cautiously resume baclofen at lower dose if mentation stable overnight.
[2024-09-15] MEDS: MoRPHine SULFATE CR 15 MG TABCR PO STA (21:16)
[2024-09-16 06:37] LABS: Hematocrit (blood only) 34.6 % (37.0-47.0); Hemoglobin 11.3 g/dl (12.0-16.0); Mean Corpuscular Hemoglobin 28.9 pg (25.0-34.0); Mean Corpuscular Hgb Conc 32.7 g/dL (32.0-36.0); Mean Corpuscular Volume 88.5 fL (80.0-100.0); Mean Platelet Volume 10.2 fL (9.4-12.4); Platelet Count 158 K/uL (130-400); RDW Coefficient of Variation 13.8 % (11.5-14.5); Red Blood Count 3.91 M/uL (4.20-5.40); White Blood Count 7.57 K/ul (4.8-10.8)
[2024-09-16 07:15] LABS: Alanine Aminotransferase 9 U/L (7-52); Albumin Globulin Ratio 1.3 (0.9-2); Albumin Level 3.5 gm/dl (3.4-5.0); Alkaline Phosphatase 77 U/L (34-104); Anion Gap 5 (3-11); Aspartate Aminotransferase 11 U/L (13-39); Bilirubin,Total 0.5 mg/dl (0.2-1.0); Blood Urea Nitrogen 2 mg/dl (6-23); Calcium 8.6 mg/dl (8.6-10.3); Carbon Dioxide 34 mmol/L (21-32); Chloride 100 mmol/L (98-107); Globulin 2.6 gm/dl (2.5-4.0); Glucose 101 mg/dl (70-99(Fasting)); Magnesium 1.8 mg/dl (1.7-2.4); Potassium 4.1 mmol/L (3.5-5.1); Sodium 139 mmol/L (136-145); Total Protein 6.1 gm/dl (6.0-8.3)
[2024-09-16] MEDS: MoRPHine SULFATE CR 15 MG TABCR PO SCH (08:56)
--- NOTE | 2024-09-16 12:24 | Pre Anesthesia Assessment ---
Date of Service September 16, 2024 Pre Sedation Assessment Vital Signs Temp Pulse Pulse Pulse Resp BP Pulse Ox 09/16/24 12:06 115 H 150/108 H 09/16/24 11:42 36.3 C L 97 H 18 89/65 L 95 09/16/24 10:45 98 H 24 98 09/16/24 10:00 09/16/24 08:03 36.6 C 94 H 18 104/83 94 09/16/24 07:18 110 H 24 95 09/16/24 04:00 36.5 C 115 H 24 105/77 96 09/16/24 00:46 84 09/16/24 00:00 36.2 C L 94 H 17 125/95 97 09/15/24 22:56 09/15/24 20:00 36.9 C 81 18 141/102 H 99 09/15/24 19:15 70 18 95 09/15/24 16:59 76 20 90 09/15/24 16:42 36.5 C 91 H 17 135/93 91 09/15/24 12:51 36.3 C L 97 H 17 131/97 96 O2 Del Method O2 Flow Rate FiO2 09/16/24 12:06 09/16/24 11:42 Nasal Cannula 2 09/16/24 10:45 Nasal Cannula 2 09/16/24 10:00 Nasal Cannula 2 09/16/24 08:03 Room Air 09/16/24 07:18 Nasal Cannula 2 09/16/24 04:00 Nasal Cannula 09/16/24 00:46 09/16/24 00:00 Nasal Cannula 3 09/15/24 22:56 Nasal Cannula 2 09/15/24 20:00 Nasal Cannula 09/15/24 19:15 Nasal Cannula 2 09/15/24 16:59 Room Air 21 09/15/24 16:42 Nasal Cannula 3 09/15/24 12:51 Nasal Cannula 3 Cardiovascular RRR, no murmur, no edema + regular rhythm and + tachycardic + S1 normal + PMI normal no JVD Respiratory + cough, + able to speak in complete sentences, + respiratory pattern abnormal and + tachypneic + crackles, + rhonchi and + I/E ratio abnormal Pre-Sedation Airway Assessment Smoking Status: Never smoker Hx Sleep Apnea: No Hx Difficult Intubation: No Short, Thick Neck: No Thyromental Distance: > or= 3.5 Finger Breadths Oral Cavity: + WNL Mallampati Class: IV ASA: ASA4 NPO Status Date of Last Intake of Fluids: 09/15/24 Time of Last Intake of Fluids: 00:00 Date of Last Intake of Solid Food: 09/15/24 Time of Last Intake of Solid Foods: 00:00 Procedure Planning Contraindications for Sedation: none Current Medications Reviewed: Yes Notes The planned sedation has been discussed with the patient. Informed Consent was obtained. I have identified the patient, determined the appropriateness of sedation and have assessed the patient immediately prior to the procedure. All medicine(s) and interventions are by my order.
--- NOTE | 2024-09-16 12:25 | History & Physical Bridge Note ---
Date of Service September 16, 2024 History & Physical Bridge Note I have examined the patient, reviewed the History & Physical and in the interval since the performance of the History & Physical I have noted the following changes of clinical significance: no changes noted
[2024-09-16] MEDS: MIDAZOLAM HCL 1 MG/ML 2ML VIAL ONE (12:46)
[2024-09-16] MEDS: MIDAZOLAM HCL 1 MG/ML 2ML VIAL IV STA (13:13)
--- NOTE | 2024-09-16 13:19 | Post Anesthesia Assessment ---
Date of Service September 16, 2024 Post Sedation Assessment Vital Signs Temp Pulse Pulse Pulse Resp BP BP 09/16/24 13:15 112 H 20 107/85 09/16/24 13:10 113 H 21 98/62 L 09/16/24 13:05 113 H 20 110/71 09/16/24 13:00 09/16/24 13:00 110 H 20 95/59 L 09/16/24 12:55 118 H 12 103/75 09/16/24 12:54 121 H 14 127/110 H 09/16/24 12:52 119 H 15 135/93 09/16/24 12:50 127 H 21 09/16/24 12:48 130 H 17 136/98 09/16/24 12:45 116 H 16 124/97 09/16/24 12:06 115 H 150/108 H 09/16/24 11:42 36.3 C L 97 H 18 89/65 L 09/16/24 10:45 98 H 24 09/16/24 10:00 09/16/24 08:03 36.6 C 94 H 18 104/83 09/16/24 07:18 110 H 24 09/16/24 05:34 82 09/16/24 04:00 36.5 C 115 H 24 105/77 09/16/24 00:46 84 09/16/24 00:00 36.2 C L 94 H 17 125/95 09/15/24 22:56 09/15/24 20:00 36.9 C 81 18 141/102 H 09/15/24 19:15 70 18 09/15/24 16:59 76 20 09/15/24 16:42 36.5 C 91 H 17 135/93 Pulse Ox O2 Del Method O2 Flow Rate FiO2 09/16/24 13:15 92 Nasal Cannula 2 09/16/24 13:10 92 Nasal Cannula 2 09/16/24 13:05 94 Oxymask 2 09/16/24 13:00 Oxymask 09/16/24 13:00 97 Oxymask 10 09/16/24 12:55 96 Oxymask 10 09/16/24 12:54 97 Oxymask 10 09/16/24 12:52 90 Oxymask 10 09/16/24 12:50 95 Oxymask 10 09/16/24 12:48 95 Oxymask 10 09/16/24 12:45 96 Oxymask 10 09/16/24 12:06 09/16/24 11:42 95 Nasal Cannula 2 09/16/24 10:45 98 Nasal Cannula 2 09/16/24 10:00 Nasal Cannula 2 09/16/24 08:03 94 Room Air 09/16/24 07:18 95 Nasal Cannula 2 09/16/24 05:34 09/16/24 04:00 96 Nasal Cannula 09/16/24 00:46 09/16/24 00:00 97 Nasal Cannula 3 09/15/24 22:56 Nasal Cannula 2 09/15/24 20:00 99 Nasal Cannula 09/15/24 19:15 95 Nasal Cannula 2 09/15/24 16:59 90 Room Air 21 09/15/24 16:42 91 Nasal Cannula 3 Recovery Score Activity: Moves 4 extremities Respiration: Deep Breath/Cough Circulation: +/-20% PreAnes Value Consciousness: Arouseable (by name) Oxygen Saturation: O2 needed for >90% Post Anesthesia Score: 8 Discharge Sedation Level of Care: Fast Track Phase II Post Sedation Plan On clinical assessment, the patient appears to have tolerated the sedation without complications. Patient is recovering as anticipated. Patient will continue to be monitored by nursing and may be discharged when sedation discharge criteria are met per below protocol. Upon Completions of procedure up to 15 minutes continue every 5 minute vital signs and the P.A.R. score; then discharge to a Phase I or Fast Track to Phase II per the following guidelines: * Discharge Patient to appropriate Phase II area if PAR is 8 or greater or return to pre- procedure baseline. The post - procedure orders will be as directed. * If PAR score is less than 8 or not return to pre-procedure baseline then patient will follow Phase I monitoring till PAR is reached for Phase II. The Phase I may be done in procedure room or may call to secure a Phase I area. * If naloxone or flumazenil are used for reversal, hold in Phase I for continued monitoring from when last reversal dose was given for a minimum of 60 minutes or longer pending the nurse and/or physician discretion of patient condition before discharge to Phase II. Please call the Sedation Physician to re-evaluate and complete post-note for discharge to Phase II area. Do NOT discharge from procedure sedation or Phase 1 until post- sedation evaluation note is complete by procedure /sedation MD Sedation Discharge Instructions to be given to the patient at discharge to home.
--- NOTE | 2024-09-16 13:26 | Procedure Note ---
Procedure Note Date of Service September 16, 2024 PREOPERATIVE DIAGNOSIS: Bibasilar pneumonia POSTOPERATIVE DIAGNOSIS: Bibasilar pneumonia PROCEDURE PERFORMED: Flexible fiberoptic bronchoscopy with aspiration of secretions in the right lower lobe and left lower lobe COMPLICATIONS: None. INDICATION: Clean out airways and evaluate for infectious organisms PROCEDURE: After obtaining an informed consent over the phone from the patient's mother, the patient was brought to the Bronchoscopy Suite. Timeout completed prior to the procedure initiation. The patient had appropriate oxygen, blood pressure, heart rate, and respiratory rate monitoring applied and monitored continuously throughout the procedure. Supplemental oxygen via nasal cannula as per nursing records was applied to the nasopharynx with adequate saturations achieved. Topical anesthesia with nebulized 1% lidocaine was achieved. Subsequent to this, the patient was premedicated with 2 mg of midazolam. The bronchoscope was originally attempted to be inserted via the right left nares, but the nares were too narrow to allow the bronchoscope to be inserted distally. A bite block was then placed and the bronchoscope was inserted via the oral airway. Epiglottis and vocal cord appeared normal. Scope was passed through the vocal cords after topical instillation of buffered lidocaine on the vocal cords. Trachea appeared to be normal. Hamida was sharp. Immediately seen were thick yellow secretions emanating from the left lower lobe and right lower lobe bronchi. Left lower lobe secretions were aspirated free and sent to the lab for culture analysis. Right lower lobe washing was performed with 20 mL of saline and thick yellow secretions were suctioned free and sent for culture analysis. I then performed a bilateral tracheobronchial tree inspection and performed washings of the bilateral tracheobronchial tree to clear out secretions. No lesions or airway abnormalities otherwise were noted. Past majority of secretions were suctioned out with the bronchoscope. The scope was then completely withdrawn and the patient tolerated the procedure well. Recommendations: Large amount of right lower lobe and left lower lobe yellow secretions were aspirated and sent for culture. [facility] [place]Charges) Pulmonary/Thoracic Procedure 1: Pulmonary and Thoracic: 86927 Dx bronchoscopy/wash Sedation/Anesthesia Procedure 1: Sedation/Anesthesia: 62281 Mod Sedation by the same physician;Init15 Min Child Age 5 & Up Coding CPT Codes Pulmonary/Thoracic - Pulmonary and Thoracic: 40581 Dx bronchoscopy/wash ([id number]) Sedation/Anesthesia - Sedation/Anesthesia: 54467 Mod Sedation by the same physician;Init15 Min Child Age 5 & Up ([id number]) Additional Codes Date of Service ([facility].SURGERY)
--- NOTE | 2024-09-16 13:33 | Pulmonology Progress Note ---
Date of Service September 16, 2024 Assessment & Plan (1) Multifocal pneumonia: (2) Candidal pneumonia: (3) Parainfluenza: (4) Mucus plugging of bronchi: (5) Acute hypoxic respiratory failure: (6) Dyspnea: (7) Severe muscle deconditioning: Plan Patient with viral bronchitis and superimposed bacterial pneumonia and possible aspiration. CT chest personally reviewed from 09/12/2024 with evidence of right middle lobe collapse, debris in the bronchus intermedius and lower lobe bronchi. Also evidence of left-sided pneumonia. Parainfluenza unlikely to be contributory at this point. ID consult due to alpha strep isolated blood culture. Antibiotics to ID. Bronchoscopy performed 09/13/2024 with copious viscous secretions noted bilaterally. Natasha albicans noted from bronchoscopic washing and there were also Natasha albicans noted in the urine 09/12/2023. Will start the patient on caspofungin as there are 2 sites of Natasha infection. Repeat bronchoscopy 09/16/24 with similar findings compared to 09/13/2024. Okay to restart Xarelto. Continue efforts at mucociliary clearance with CoughAssist device, percussive vest therapy and hypertonic saline. Patient severely weak and deconditioned likely contributing to her recurrent pneumonia. PT consult ordered. LOOM OPERATOR APPRENTICE evaluation noted. Video swallow study is ordered and may need to be completed as an outpatient. Admission and Anticipated Discharge Date Admission Date: September 12, 2024 Subjective Patient requiring 2 L of oxygen to maintain saturations in the 90s. Occasional cough. Lethargic. Review of Systems Review of Systems: All systems reviewed & are unremarkable except as noted in HPI & below Physical Exam Physical Exam: Constitutional: Patient appears to be of their stated age. Patient is in no apparent distress. She is in a powered wheelchair. Eyes: Pupils are equal round and reactive to light. Conjunctivae are normal. Anicteric sclera. Ears nose, mouth and throat: No perioral cyanosis. Neck: Trachea is midline. Prior tracheostomy site noted with scarring. Respiratory: Crackles and diminishment bilaterally in the lower lobes. Tachypneic. Cardiovascular: Regular rate and rhythm. No murmurs. No edema. Gastrointestinal: Mildly distended abdomen. Bloated. No tenderness to palpation. Suprapubic catheter in place. Musculoskeletal: No cyanosis. Mild contractures noted of the bilateral hands. Extremities intact. Skin: No rashes, warm dry and intact. 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 Psychiatric: Alert and oriented x3 with flat affect and depressed mood. Results & Data Results & Data Vital Signs (Past 12 Hours) Vital Signs Temp Pulse Pulse Pulse Resp BP BP 09/16/24 13:25 109 H 19 124/63 09/16/24 13:25 36.9 C 09/16/24 13:20 106 H 20 97/78 L 09/16/24 13:15 112 H 20 107/85 09/16/24 13:10 113 H 21 98/62 L 09/16/24 13:05 113 H 20 110/71 09/16/24 13:00 09/16/24 13:00 110 H 20 95/59 L 09/16/24 12:55 118 H 12 103/75 09/16/24 12:54 121 H 14 127/110 H 09/16/24 12:52 119 H 15 135/93 09/16/24 12:50 127 H 21 09/16/24 12:48 36.9 C 09/16/24 12:48 130 H 17 136/98 09/16/24 12:45 116 H 16 124/97 09/16/24 12:06 115 H 150/108 H 09/16/24 11:42 36.3 C L 97 H 18 89/65 L 09/16/24 10:45 98 H 24 09/16/24 10:00 09/16/24 08:03 36.6 C 94 H 18 104/83 09/16/24 07:18 110 H 24 09/16/24 05:34 82 09/16/24 04:00 36.5 C 115 H 24 105/77 Pulse Ox O2 Del Method O2 Flow Rate 09/16/24 13:25 94 Nasal Cannula 2 09/16/24 13:25 09/16/24 13:20 94 Nasal Cannula 2 09/16/24 13:15 92 Nasal Cannula 2 09/16/24 13:10 92 Nasal Cannula 2 09/16/24 13:05 94 Oxymask 2 09/16/24 13:00 Oxymask 09/16/24 13:00 97 Oxymask 10 09/16/24 12:55 96 Oxymask 10 09/16/24 12:54 97 Oxymask 10 09/16/24 12:52 90 Oxymask 10 09/16/24 12:50 95 Oxymask 10 09/16/24 12:48 09/16/24 12:48 95 Oxymask 10 09/16/24 12:45 96 Oxymask 10 09/16/24 12:06 09/16/24 11:42 95 Nasal Cannula 2 09/16/24 10:45 98 Nasal Cannula 2 09/16/24 10:00 Nasal Cannula 2 09/16/24 08:03 94 Room Air 09/16/24 07:18 95 Nasal Cannula 2 09/16/24 05:34 09/16/24 04:00 96 Nasal Cannula PG Care Time/CCT Total # of Minutes Spent Total Time Spent with Patient: Total time spent is greater than 50% in coordination of care (as documented) at patient's floor/unit and/or counseling patient: Coding Level of Care Code 98907 SUB INP/OBS CARE 3/50MIN Diagnoses Multifocal pneumonia J18.9 Candidal pneumonia B37.1 Parainfluenza B34.8 Mucus plugging of bronchi T17.500A Acute hypoxic respiratory failure J96.01 Dyspnea R06.00 Severe muscle deconditioning R29.898
[2024-09-16] MEDS: CASPOFUNGIN 70 MG in SODIUM CHLORIDE 0.9% 250 ML IV ONE (14:41)
--- NOTE | 2024-09-16 15:19 | Hospitalist Progress Note ---
Date of Service September 16, 2024 Assessment & Plan (1) Acute hypoxic respiratory failure: (2) Multifocal pneumonia: (3) Mucus plugging of bronchi: (4) Neuromuscular respiratory weakness: (5) Chronic fibrosis of lung: (6) Chronic pain syndrome: (7) Pressure ulcer of toe of left foot, stage 3: (8) Quadriplegia: (9) Anxiety: (10) Depression: (11) History of DVT (deep vein thrombosis): Plan Patient is a 33yr female with PMH of cervical spine injury in 2011 with quadriplegia, DVT on Xarelto, recurrent/chronic pressure ulcer status post debridement and hamstring flap closure May 2021, anxiety, depression, spastic neurogenic bladder status suprapubic catheter, history of recurrent UTI, history of c diff who was sent in by recommendation of group manager for IV antibiotics and bronchoscopy. Acute hypoxic respiratory failure Multifocal pneumonia Mucous plugging Recently admitted from 09/02- for RLL PNA and was discharged on Augmentin (completed 09/09), worsening overnight Saturating in mid-80s at home --Chest CTA:No definite sign of pulmonary embolism. Right worse than left pneumonia, with concurrent bilateral lower lobe atelectasis. Right middle lobe collapse. Infectious secretions or other debris within the right mainstem bronchus and occlusion of the bilateral lower lobe bronchi. Small bilateral pleural effusions --Repeat Chest CTA: No PE. Bilateral lower lobe bronchi are occluded by secretions with progressive near complete consolidation of bilateral lower lobes. Upper lobe opacities with infectious/inflammatory morphology. -- BioFire positive for parainfluenza --Legionella pending --S/P bronchoscopy with aspiration of secretions in the right lower lobe and left lower lobe on 09/13/2024: Cultures grew Natasha --S/P Repeat Bronchoscopy on 09/16/24: Bronchial wash cultures pending --Blood cultures--as below Continue Zosyn Also started on Caspofungin on 09/16 Appreciate pulmonology input Continue pulmonary hygiene with flutter, chest PT, Mucinex, hypertonic saline nebs Continue nebs Supplemental oxygen as needed Infectious disease on board Likely aspiration contributing Plan for video swallow study on Wednesday Continue aspiration precautions Will need follow-up with pulmonology on discharge Strep Bacteremia--POA --Repeat Blood cultures negative to date Continue Zosyn Likely need to complete 2-week course of antibiotics per ID Will follow-up with ID for final recommendations Altered mental status Secondary to polypharmacy --MRI Brain:No acute intracranial abnormality. No acute or subacute infarct. -- No significant hypercarbia on ABG --Normal ammonia level --Aspiration precautions -- Hold sedating medications if lethargic Hx of Cdiff Continue home oral vancomycin Hypokalemia Replace and monitor Nonspecific abdominal distention --KUB: Nonspecific gaseous distention of redundant sigmoid colon and left colon Has been having bowel movements Monitor Cervical C-spine Injury with Quadriplegia Chronic pain syndrome Continue antispasmodics, pain regimen with morphine BID, PRN Percocet History of DVT Held Xarelto for procedure Resumed Xarelto Recurrent/chronic pressure ulcer Status post debridement and hamstring flap closure May 2021, q2hr reposition, waffle boots Chronic Stage III pressure ulcer to left ankle POA Daily Santyl, consult wound care (dressing last changed this AM) Anxiety/Depression Continue Duloxetine, Aripiprazole HS, PRN Ativan Spastic neurogenic bladder status suprapubic catheter and bowel Requires nightly enemas and disimpaction, suprapubic cath care History of recurrent UTI Continue Metamine hippurate DVT Px: Xarelto Code status: FULL CODE Admission and Anticipated Discharge Date Admission Date: September 12, 2024 Subjective Patient is seen and examined at bedside Had repeat bronchoscopy this morning Mental status back to baseline No significant cough today Still has some dyspnea Poor sleep overnight No other complaints today Review of Systems Review of Systems: All systems reviewed & are unremarkable except as noted in Subjective Physical Exam Physical Exam: Physical Exam: Vitals signs as noted above General Appearance:Moderately built and nourished, no apparent distress Head: normocephalic, Atraumatic Eyes: normal inspection, EOMI Neck: supple, Trachea midline Respiratory/Chest: Decreased coarse breath sounds, No accessory muscle use Cardiovascular: S1, S2, No murmur Abdomen/GI:Soft, Non tender, mildly distended, bowel sounds present,+ suprapubic catheter Extremities/Musculoskeletal:normal inspection, no edema Neurologic/Psych:AAOX3, B/L LE 0/5, UE 3/5 Skin: normal color, warm Results & Data Results & Data Vital Signs (Past 12 Hours) Vital Signs Temp Pulse Pulse Pulse Resp BP BP 09/16/24 15:06 36.7 C 91 H 18 100/76 09/16/24 14:48 84 18 09/16/24 14:03 36.6 C 103 H 22 127/102 H 09/16/24 13:30 93 H 14 103/68 09/16/24 13:25 109 H 19 124/63 09/16/24 13:25 36.9 C 09/16/24 13:20 106 H 20 97/78 L 09/16/24 13:15 112 H 20 107/85 09/16/24 13:10 113 H 21 98/62 L 09/16/24 13:05 113 H 20 110/71 09/16/24 13:00 09/16/24 13:00 110 H 20 95/59 L 09/16/24 12:55 118 H 12 103/75 09/16/24 12:54 121 H 14 127/110 H 09/16/24 12:52 119 H 15 135/93 09/16/24 12:50 127 H 21 09/16/24 12:48 36.9 C 09/16/24 12:48 130 H 17 136/98 09/16/24 12:45 116 H 16 124/97 09/16/24 12:06 115 H 150/108 H 09/16/24 11:42 36.3 C L 97 H 18 89/65 L 09/16/24 10:45 98 H 24 09/16/24 10:00 09/16/24 08:03 36.6 C 94 H 18 104/83 09/16/24 07:18 110 H 24 09/16/24 05:34 82 09/16/24 04:00 36.5 C 115 H 24 105/77 Pulse Ox O2 Del Method O2 Flow Rate 09/16/24 15:06 92 Room Air 09/16/24 14:48 97 Nasal Cannula 2 09/16/24 14:03 95 Nasal Cannula 2 09/16/24 13:30 94 Nasal Cannula 2 09/16/24 13:25 94 Nasal Cannula 2 09/16/24 13:25 09/16/24 13:20 94 Nasal Cannula 2 09/16/24 13:15 92 Nasal Cannula 2 09/16/24 13:10 92 Nasal Cannula 2 09/16/24 13:05 94 Oxymask 2 09/16/24 13:00 Oxymask 09/16/24 13:00 97 Oxymask 10 09/16/24 12:55 96 Oxymask 10 09/16/24 12:54 97 Oxymask 10 09/16/24 12:52 90 Oxymask 10 09/16/24 12:50 95 Oxymask 10 09/16/24 12:48 09/16/24 12:48 95 Oxymask 10 09/16/24 12:45 96 Oxymask 10 09/16/24 12:06 09/16/24 11:42 95 Nasal Cannula 2 09/16/24 10:45 98 Nasal Cannula 2 09/16/24 10:00 Nasal Cannula 2 09/16/24 08:03 94 Room Air 09/16/24 07:18 95 Nasal Cannula 2 09/16/24 05:34 09/16/24 04:00 96 Nasal Cannula Laboratory Results Short CBC 09/16/24 Range/Units 06:04 WBC 7.57 (4.8-10.8) K/ul Hgb 11.3 L (12.0-16.0) g/dl Hct 34.6 L (37.0-47.0) % Plt Count 158 (130-400) K/uL BMP 09/16/24 06:04 Sodium 139 Potassium 4.1 Chloride 100 Carbon Dioxide 34 H BUN 2 L Creatinine < 0.20 L Glucose 101 H Calcium 8.6 Liver Function 09/16/24 Range/Units 06:04 Total Bilirubin 0.5 (0.2-1.0) mg/dl AST 11 L (13-39) U/L ALT 9 (7-52) U/L Alkaline Phosphatase 77 (34-104) U/L Albumin 3.5 (3.4-5.0) gm/dl
[2024-09-16] MEDS: RIVAROXABAN 20 MG TAB PO ONE (15:52)
[2024-09-17 09:14] LABS: Alanine Aminotransferase 13 U/L (7-52); Albumin Globulin Ratio 1.2 (0.9-2); Albumin Level 3.8 gm/dl (3.4-5.0); Alkaline Phosphatase 84 U/L (34-104); Anion Gap 8 (3-11); Bilirubin,Total 0.7 mg/dl (0.2-1.0); Blood Urea Nitrogen 2 mg/dl (6-23); Calcium 9.4 mg/dl (8.6-10.3); Carbon Dioxide 29 mmol/L (21-32); Chloride 96 mmol/L (98-107); Creatinine Clr Calc Pharmacy 478.2 ml/min; Globulin 3.1 gm/dl (2.5-4.0); Glucose 109 mg/dl (70-99(Fasting)); Magnesium 1.9 mg/dl (1.7-2.4); Sodium 133 mmol/L (136-145); Total Protein 6.9 gm/dl (6.0-8.3)
[2024-09-17] MEDS: ALTEPLASE, RECOMBINANT 1 MG/ML 2ML VIAL INSTIL ONE (11:05)
[2024-09-17] MEDS: ONDANSETRON INJ 2 MG/ML 2 ML VIAL IV ONE (12:43)
[2024-09-17 12:58] LABS: Hematocrit (blood only) 43.3 % (37.0-47.0); Hemoglobin 13.9 g/dl (12.0-16.0); Mean Corpuscular Hemoglobin 28.5 pg (25.0-34.0); Mean Corpuscular Hgb Conc 32.1 g/dL (32.0-36.0); Mean Corpuscular Volume 88.7 fL (80.0-100.0); Mean Platelet Volume 9.6 fL (9.4-12.4); Platelet Count 170 K/uL (130-400); RDW Coefficient of Variation 13.8 % (11.5-14.5); RDW Standard Deviation 44.9 fL (36.4-46.3); Red Blood Count 4.88 M/uL (4.20-5.40)
[2024-09-17] MEDS ORDERED: Nursing to Pharmacy Communication SCH (14:15)
--- NOTE | 2024-09-17 14:35 | Pulmonology Progress Note ---
Date of Service September 17, 2024 Assessment & Plan (1) Multifocal pneumonia: (2) Candidal pneumonia: (3) Parainfluenza: (4) Mucus plugging of bronchi: (5) Acute hypoxic respiratory failure: (6) Dyspnea: (7) Severe muscle deconditioning: Plan Patient with viral bronchitis and superimposed bacterial pneumonia and possible aspiration. CT chest personally reviewed from 09/12/2024 with evidence of right middle lobe collapse, debris in the bronchus intermedius and lower lobe bronchi. Also evidence of left-sided pneumonia. Parainfluenza unlikely to be contributory at this point. ID consulted by hospital service due to alpha strep isolated blood culture. Antibiotics per ID in reference to alpha strep. Bronchoscopy performed 09/13/2024 with copious viscous secretions noted bilaterally. Natasha albicans noted from bronchoscopic washing and there were also Natasha albicans noted in the urine 09/12/2023. Caspofungin started 09/16/2024 as there are 2 sites of Natasha infection (suprapubic catheter and bronchoscopy washings) and her pneumonia appears to be refractory to conventional antibiotics. Repeat bronchoscopy 09/16/24 with similar findings compared to 09/13/2024. Okay to restart Xarelto. May need additional repeat bronchoscopy in the next day or 2. Will defer to ongoing senior project manager engineering. Continue efforts at mucociliary clearance with CoughAssist device, percussive vest therapy and hypertonic saline. Patient severely weak and deconditioned likely contributing to her recurrent pneumonia. PT consult ordered. WEATHERIZATION INSTALLER evaluation noted. Video swallow tomorrow. Admission and Anticipated Discharge Date Admission Date: September 12, 2024 Subjective Patient seen examined. She is off supplemental oxygen. She continues to have symptoms of dyspnea and tachypnea. She notices dyspnea with minimal movement. She has persistent cough but is unable to bring up any phlegm. She denies any chest pain. Review of Systems Review of Systems: All systems reviewed & are unremarkable except as noted in HPI & below Physical Exam Physical Exam: Constitutional: Patient appears to be of their stated age. Patient is in no apparent distress. She is in a powered wheelchair. Eyes: Pupils are equal round and reactive to light. Conjunctivae are normal. Anicteric sclera. Ears nose, mouth and throat: No perioral cyanosis. Neck: Trachea is midline. Prior tracheostomy site noted with scarring. Respiratory: Crackles and diminishment bilaterally in the lower lobes. Tachypneic. Cardiovascular: Regular rate and rhythm. No murmurs. No edema. Gastrointestinal: Mildly distended abdomen. Bloated. No tenderness to palpation. Suprapubic catheter in place. Musculoskeletal: No cyanosis. Mild contractures noted of the bilateral hands. Extremities intact. Skin: No rashes, warm dry and intact. 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 Psychiatric: Alert and oriented x3 with flat affect and depressed mood. Results & Data Results & Data Vital Signs (Past 12 Hours) Vital Signs Temp Pulse Pulse Resp BP Pulse Ox O2 Del Method 09/17/24 11:24 Room Air 09/17/24 11:02 36.9 C 85 20 126/88 99 Room Air 09/17/24 10:09 85 18 94 Room Air 09/17/24 07:24 90 18 95 Room Air 09/17/24 07:21 36.9 C 87 20 141/99 H 100 Room Air 09/17/24 07:00 91 H PG Care Time/CCT Total # of Minutes Spent Total Time Spent with Patient: Total time spent is greater than 50% in coordination of care (as documented) at patient's floor/unit and/or counseling patient: Coding Level of Care Code 11238 SUB INP/OBS CARE 3/50MIN Diagnoses Multifocal pneumonia J18.9 Candidal pneumonia B37.1 Parainfluenza B34.8 Mucus plugging of bronchi T17.500A Acute hypoxic respiratory failure J96.01 Dyspnea R06.00 Severe muscle deconditioning R29.898
[2024-09-17] MEDS: ACETAMINOPHEN 500 MG TAB PO PRN (15:10)
--- NOTE | 2024-09-17 15:51 | Hospitalist Progress Note ---
Date of Service September 17, 2024 Assessment & Plan (1) Acute hypoxic respiratory failure: (2) Multifocal pneumonia: (3) Mucus plugging of bronchi: (4) Neuromuscular respiratory weakness: (5) Chronic fibrosis of lung: (6) Chronic pain syndrome: (7) Pressure ulcer of toe of left foot, stage 3: (8) Quadriplegia: (9) Anxiety: (10) Depression: (11) History of DVT (deep vein thrombosis): Plan Patient is a 33yr female with PMH of cervical spine injury in 2011 with quadriplegia, DVT on Xarelto, recurrent/chronic pressure ulcer status post debridement and hamstring flap closure May 2021, anxiety, depression, spastic neurogenic bladder status suprapubic catheter, history of recurrent UTI, history of c diff who was sent in by recommendation of any commodity buyer for IV antibiotics and bronchoscopy. Acute hypoxic respiratory failure Multifocal pneumonia Mucous plugging Recently admitted from 09/02- for RLL PNA and was discharged on Augmentin (completed 09/09), worsening overnight Saturating in mid-80s at home --Chest CTA:No definite sign of pulmonary embolism. Right worse than left pneumonia, with concurrent bilateral lower lobe atelectasis. Right middle lobe collapse. Infectious secretions or other debris within the right mainstem bronchus and occlusion of the bilateral lower lobe bronchi. Small bilateral pleural effusions --Repeat Chest CTA: No PE. Bilateral lower lobe bronchi are occluded by secretions with progressive near complete consolidation of bilateral lower lobes. Upper lobe opacities with infectious/inflammatory morphology. -- BioFire positive for parainfluenza --Legionella pending --S/P bronchoscopy with aspiration of secretions in the right lower lobe and left lower lobe on 09/13/2024: Cultures grew Natasha --S/P Repeat Bronchoscopy on 09/16/24: Bronchial wash cultures pending --Blood cultures--as below Continue Zosyn Also started on Caspofungin on 09/16 Appreciate pulmonology input Continue pulmonary hygiene with flutter, chest PT, Mucinex Continue nebs Supplemental oxygen as needed Infectious disease on board Likely aspiration contributing Plan for video swallow study tomorrow aspiration precautions Needs additional bronchoscopy in 1 to 2 days per pulmonology Patient refuses hypertonic saline nebs Strep Bacteremia--POA --Repeat Blood cultures negative to date Continue Zosyn Likely need to complete 2-week course of antibiotics per ID Will follow-up with ID for final recommendations Altered mental status Secondary to polypharmacy --MRI Brain:No acute intracranial abnormality. No acute or subacute infarct. -- No significant hypercarbia on ABG --Normal ammonia level --Aspiration precautions -- Hold sedating medications if lethargic Hx of Cdiff Continue home oral vancomycin Hypokalemia Replace and monitor Nonspecific abdominal distention --KUB: Nonspecific gaseous distention of redundant sigmoid colon and left colon Has been having bowel movements Monitor Cervical C-spine Injury with Quadriplegia Chronic pain syndrome Continue antispasmodics, pain regimen with morphine BID, PRN Percocet History of DVT Held Xarelto for procedure Resumed Xarelto Recurrent/chronic pressure ulcer Status post debridement and hamstring flap closure May 2021, q2hr reposition, waffle boots Chronic Stage III pressure ulcer to left ankle POA Daily Santyl, consult wound care (dressing last changed this AM) Anxiety/Depression Continue Duloxetine, Aripiprazole HS, PRN Ativan Spastic neurogenic bladder status suprapubic catheter and bowel Requires nightly enemas and disimpaction, suprapubic cath care History of recurrent UTI Continue Metamine hippurate DVT Px: Xarelto Code status: FULL CODE Admission and Anticipated Discharge Date Admission Date: September 12, 2024 Subjective Patient is seen and examined at bedside Mental status back to baseline Still having cough but having trouble expectorating Refuses hypertonic saline nebs Reports minimal nausea but no other complaints today Also states having some chest discomfort with cough Saturating well on room air this morning but later required 2 L supplemental oxygen Review of Systems Review of Systems: All systems reviewed & are unremarkable except as noted in Subjective Physical Exam Physical Exam: Physical Exam: Vitals signs as noted above General Appearance:Moderately built and nourished, no apparent distress Head: normocephalic, Atraumatic Eyes: normal inspection, EOMI Neck: supple, Trachea midline Respiratory/Chest: Decreased coarse breath sounds, No accessory muscle use Cardiovascular: S1, S2, No murmur Abdomen/GI:Soft, Non tender, mildly distended, bowel sounds present,+ suprapubic catheter Extremities/Musculoskeletal:normal inspection, no edema Neurologic/Psych:AAOX3, B/L LE 0/5, UE 3/5 Skin: normal color, warm Results & Data Results & Data Vital Signs (Past 12 Hours) Vital Signs Temp Pulse Pulse Resp BP Pulse Ox O2 Del Method 09/17/24 15:33 36.7 C 117 H 20 106/74 92 Nasal Cannula 09/17/24 15:20 86 20 91 09/17/24 15:07 94 Nasal Cannula 09/17/24 15:00 22 87 L Room Air 09/17/24 14:32 107 H 09/17/24 11:24 Room Air 09/17/24 11:02 36.9 C 85 20 126/88 99 Room Air 09/17/24 10:09 85 18 94 Room Air 09/17/24 07:24 90 18 95 Room Air 09/17/24 07:21 36.9 C 87 20 141/99 H 100 Room Air 09/17/24 07:00 91 H O2 Flow Rate 09/17/24 15:33 2 09/17/24 15:20 2 09/17/24 15:07 2 09/17/24 15:00 09/17/24 14:32 09/17/24 11:24 09/17/24 11:02 09/17/24 10:09 09/17/24 07:24 09/17/24 07:21 09/17/24 07:00 Laboratory Results Short CBC 09/17/24 09/17/24 Range/Units 08:34 12:44 WBC Cancelled 9.50 Hgb Cancelled 13.9 Hct Cancelled 43.3 Plt Count Cancelled 170 BMP 09/17/24 09/17/24 08:34 12:44 Sodium 133 L Potassium TNP 4.0 Chloride 96 L Carbon Dioxide 29 BUN 2 L Creatinine < 0.20 L Glucose 109 H Calcium 9.4 Liver Function 09/17/24 09/17/24 Range/Units 08:34 12:44 Total Bilirubin 0.7 (0.2-1.0) mg/dl AST TNP 13 ALT 13 (7-52) U/L Alkaline Phosphatase 84 (34-104) U/L Albumin 3.8 (3.4-5.0) gm/dl
[2024-09-17] MEDS: CASPOFUNGIN 50 MG in SODIUM CHLORIDE 0.9% 250 ML IV SCH (16:37)
--- NOTE | 2024-09-18 08:02 | Pulmonology Progress Note ---
Date of Service September 18, 2024 Assessment & Plan (1) Multifocal pneumonia: (2) Candidal pneumonia: (3) Parainfluenza: (4) Mucus plugging of bronchi: (5) Acute hypoxic respiratory failure: (6) Dyspnea: (7) Severe muscle deconditioning: Plan IMPRESSION: 33-year-old female with a significant history of quadriplegia, restrictive lung disease, and chronic atelectasis of the LEFT lower lobe who was admitted previously in the setting of parainfluenza with superimposed bacterial pneumonia and subsequently discharged home. She returned with dense RIGHT lower lobe pneumonia. She has undergone bronchoscopy x 2 secondary to inability to clear secretions and concerns for aspiration. RECOMMENDATIONS: 1. Pneumonia - Bilateral RIGHT greater than left pneumonia with associated debris in the bronchus. She is currently on antibiotics and antifungals as directed by infectious disease for alpha strep isolates in the blood as well as Natasha albicans from bronchoscopic washings. She has undergone bronchoscopy x 2 largely for airway secretions. Unfortunately, the patient already has restrictive lung dysfunction with decreased respiratory muscle strength associated with her spinal cord injury which makes clearance secretions difficult. Continue with aggressive pulmonary toileting including CoughAssist, progressive chest vest, and hypertonic saline therapies. 2. Aspiration - Presumed aspiration based on imaging and conversations with the patient. She does confirm that she feels as though she aspirated macaroni and cheese last night with dinner. Thankfully, she has improved and is nontoxic on 4 L and saturating 98% at this time. She is to undergo video swallow study today with further recommendations based on this. Low threshold for repeat bronchoscopy sooner than later. 3. Hypoxia - Secondary to #1. Continue with aggressive pulmonary toileting. Titrate down supplemental oxygen as able. Thank you for allowing us to participate in the care of this pleasant patient. Pulmonary medicine will continue to follow along. Admission and Anticipated Discharge Date Admission Date: September 12, 2024 Supervising Physician Co-Signing Physician Notes Patient seen and examined. EMR reviewed. Agree with assessment and plan as noted by CARLOS ALBERTO. Continue pulmonary toilet. Await swallow evaluation. Subjective Patient was seen and evaluated at bedside. She reports that she did have a rough day yesterday, but improved in the evening. She does note that she aspirated while eating macaroni and cheese last night which did set her back somewhat. She rested comfort last night and is feeling better today. She is scheduled to undergo video swallow study today. No fevers or chills. No hemoptysis. She is still unable to significantly clear any secretions. Review of Systems Review of Systems: As per subjective Physical Exam Physical Exam: VITAL SIGNS - Vital signs and nursing notes were reviewed. GENERAL - 33-year-old female appearing her stated age who is in no acute distress. Communicates well with provider and answers questions appropriately. LUNGS - Auscultation reveals slight diminished breath sounds with coarse breath sounds in the RIGHT lower lung field. CARDIAC - RRR with S1/S2. No murmur, rubs, or gallops appreciated. EXTREMITIES - Atrophy of the upper and lower extremities noted. PSYCH - A&Ox3 and cooperates fully with examiner. Pt is very pleasant and interacts well with examiner. Results & Data Results & Data Vital Signs (Past 12 Hours) Vital Signs Temp Pulse Pulse Resp BP Pulse Ox O2 Del Method 09/18/24 07:40 98 H 20 97 Nasal Cannula 09/18/24 07:16 87 09/18/24 03:28 36.7 C 20 124/85 100 Nasal Cannula 09/18/24 00:32 36.7 C 85 20 95/64 L 98 Nasal Cannula 09/18/24 00:15 Nasal Cannula 09/17/24 21:45 88 09/17/24 20:39 Nasal Cannula, Other 09/17/24 20:28 36.7 C 97 H 20 90/61 L 95 Nasal Cannula O2 Flow Rate 09/18/24 07:40 4 09/18/24 07:16 09/18/24 03:28 09/18/24 00:32 2 09/18/24 00:15 2 09/17/24 21:45 09/17/24 20:39 2 09/17/24 20:28 2 PG Care Time/CCT Total # of Minutes Spent Total Time Spent with Patient: Total time spent is greater than 50% in coordination of care (as documented) at patient's floor/unit and/or counseling patient: Coding Level of Care Code 36398 SUB INP/OBS CARE 2/35MIN Diagnoses Multifocal pneumonia J18.9 Candidal pneumonia B37.1 Parainfluenza B34.8 Mucus plugging of bronchi T17.500A Acute hypoxic respiratory failure J96.01 Dyspnea R06.00 Severe muscle deconditioning R29.898
[2024-09-18 08:13] LABS: Hematocrit (blood only) 39.3 % (37.0-47.0); Hemoglobin 12.3 g/dl (12.0-16.0); Mean Corpuscular Hgb Conc 31.3 g/dL (32.0-36.0); Mean Corpuscular Volume 89.3 fL (80.0-100.0); Mean Platelet Volume 10.5 fL (9.4-12.4); Platelet Count 181 K/uL (130-400); RDW Coefficient of Variation 14.2 % (11.5-14.5); RDW Standard Deviation 46.5 fL (36.4-46.3); White Blood Count 7.78 K/ul (4.8-10.8)
--- NOTE | 2024-09-18 08:28 | XRay Report ---
XR chest 1V portable CLINICAL HISTORY: f/u COMPARISON STUDY: 09/15/2024 FINDINGS: Stable right chest port. Heart size and pulmonary vasculature are normal. There is stable c onsolidation in the lung bases with obscuration of the diaphragm. No pneumothorax. IMPRESSION: Stable exam. ACT 112: Negative or not required by law. Electronically signed by: Andrew Villagran M.D. 09/18/2024 8:26 AM
[2024-09-18 08:40] LABS: Anion Gap 5 (3-11); Blood Urea Nitrogen 2 mg/dl (6-23); Calcium 8.8 mg/dl (8.6-10.3); Carbon Dioxide 35 mmol/L (21-32); Chloride 96 mmol/L (98-107); Glucose 91 mg/dl (70-99(Fasting)); Sodium 136 mmol/L (136-145)
--- NOTE | 2024-09-18 11:57 | Fluoroscopy Report ---
FL video swallow CLINICAL HISTORY: 33 years-old Female with assess for aspiration. Dysphagia with quadriplegia TECHNIQUE: Video fluoroscopic evaluation of swallowing was performed in the AP and lateral projection s by the speech pathology staff. The patient is fed varying consistencies of barium. FLUOROSCOPY TIME: 1.1 minutes. 2349 images were obtained. 3.44. mGy COMPARISON STUDY: None. FINDINGS: There is normal hyoid excursion and epiglottic deflection. No significant penetration or as piration identified. Swallowing function is within normal limits. Cervicothoracic spinal fusion hardw are incidentally noted. IMPRESSION: 1. No aspiration identified. 2. Please see the speech pathologist report for detailed findings and recommendations. ACT 112: Negative or not required by law. Electronically signed by: William Dickson M.D. 09/18/2024 11:56 AM
[2024-09-18] MEDS: HEPARIN 100 UNIT/ML 5ML FLUSH FLUSH PRN (12:28)
[2024-09-18] MEDS: AMOXICILLIN 500 MG CAP PO SCH (13:35)
--- NOTE | 2024-09-18 16:34 | Hospitalist Progress Note ---
Date of Service September 18, 2024 Assessment & Plan (1) Acute hypoxic respiratory failure: (2) Multifocal pneumonia: (3) Mucus plugging of bronchi: (4) Neuromuscular respiratory weakness: (5) Chronic fibrosis of lung: (6) Chronic pain syndrome: (7) Pressure ulcer of toe of left foot, stage 3: (8) Quadriplegia: (9) Anxiety: (10) Depression: (11) History of DVT (deep vein thrombosis): Plan Patient is a 33yr female with PMH of cervical spine injury in 2011 with quadriplegia, DVT on Xarelto, recurrent/chronic pressure ulcer status post debridement and hamstring flap closure May 2021, anxiety, depression, spastic neurogenic bladder status suprapubic catheter, history of recurrent UTI, history of c diff who was sent in by recommendation of trust advisor for IV antibiotics and bronchoscopy. Acute hypoxic respiratory failure Multifocal pneumonia Mucous plugging Recently admitted from 09/02- for RLL PNA and was discharged on Augmentin (completed 09/09), worsening overnight Saturating in mid-80s at home --Chest CTA:No definite sign of pulmonary embolism. Right worse than left pneumonia, with concurrent bilateral lower lobe atelectasis. Right middle lobe collapse. Infectious secretions or other debris within the right mainstem bronchus and occlusion of the bilateral lower lobe bronchi. Small bilateral pleural effusions --Repeat Chest CTA: No PE. Bilateral lower lobe bronchi are occluded by secretions with progressive near complete consolidation of bilateral lower lobes. Upper lobe opacities with infectious/inflammatory morphology. -- BioFire positive for parainfluenza --Legionella PCR negative --S/P bronchoscopy with aspiration of secretions in the right lower lobe and left lower lobe on 09/13/2024: Cultures grew Natasha --S/P Repeat Bronchoscopy on 09/16/24: Bronchial wash cultures pending --Blood cultures--as below Continue Zosyn> transition to amoxicillin> per ID (Dr. Márquez ) discussed on 09/18/2024 Also started on Caspofungin on 09/16 discontinued on 09/18/24 per ID recommendations Appreciate pulmonology input Continue pulmonary hygiene with flutter, chest PT, Mucinex Continue nebs Supplemental oxygen as needed Infectious disease on board Likely aspiration contributing Video swallow study showed no aspiration issues Started on regular diet Repeat bronchoscopy as needed per pulmonology Patient refuses hypertonic saline nebs Pulmonology following Strep Bacteremia--POA --Repeat Blood cultures negative to date Continue Zosyn>> transition to amoxicillin Likely need to complete 2-week course of antibiotics per ID Altered mental status Secondary to polypharmacy --MRI Brain:No acute intracranial abnormality. No acute or subacute infarct. -- No significant hypercarbia on ABG --Normal ammonia level --Aspiration precautions -- Hold sedating medications if lethargic Hx of Cdiff Continue home oral vancomycin Hypokalemia Replace and monitor Nonspecific abdominal distention --KUB: Nonspecific gaseous distention of redundant sigmoid colon and left colon Has been having bowel movements Monitor Cervical C-spine Injury with Quadriplegia Chronic pain syndrome Continue antispasmodics, pain regimen with morphine BID, PRN Percocet History of DVT Held Xarelto for procedure Resumed Xarelto Recurrent/chronic pressure ulcer Status post debridement and hamstring flap closure May 2021, q2hr reposition, waffle boots Chronic Stage III pressure ulcer to left ankle POA Daily Santyl, consult wound care (dressing last changed this AM) Anxiety/Depression Continue Duloxetine, Aripiprazole HS, PRN Ativan Spastic neurogenic bladder status suprapubic catheter and bowel Requires nightly enemas and disimpaction, suprapubic cath care History of recurrent UTI Continue Metamine hippurate DVT Px: Xarelto Code status: FULL CODE Admission and Anticipated Discharge Date Admission Date: September 12, 2024 Subjective Patient is seen and examined at bedside States feeling a lot better this morning during my encounter Dyspnea, cough much improved Discussed with patient's mom over the phone Also discussed with pulmonology today RN reports patient to be lethargic this afternoon requiring minimal supplemental oxygen Discussed with ID as well Patient had video swallow study today Review of Systems Review of Systems: All systems reviewed & are unremarkable except as noted in Subjective Physical Exam Physical Exam: Physical Exam: Vitals signs as noted above General Appearance:Moderately built and nourished, no apparent distress Head: normocephalic, Atraumatic Eyes: normal inspection, EOMI Neck: supple, Trachea midline Respiratory/Chest: Decreased breath sounds, CTA, No accessory muscle use Cardiovascular: S1, S2, No murmur Abdomen/GI:Soft, Non tender, mildly distended, bowel sounds present,+ suprapubic catheter Extremities/Musculoskeletal:normal inspection, no edema Neurologic/Psych:AAOX3, B/L LE 0/5, UE 3/5 Skin: normal color, warm Results & Data Results & Data Vital Signs (Past 12 Hours) Vital Signs Temp Pulse Pulse Resp BP Pulse Ox O2 Del Method 09/18/24 16:15 68 18 97 Nasal Cannula 09/18/24 15:40 36.2 C L 79 20 136/92 97 Nasal Cannula 09/18/24 15:27 107 H 09/18/24 12:59 95 H 22 94 Nasal Cannula 09/18/24 11:21 36.5 C 95 H 20 115/83 95 Room Air 09/18/24 11:10 Room Air 09/18/24 11:07 100 H 20 96 Room Air 09/18/24 07:40 98 H 20 97 Nasal Cannula 09/18/24 07:16 87 O2 Flow Rate 09/18/24 16:15 1 09/18/24 15:40 09/18/24 15:27 09/18/24 12:59 2 09/18/24 11:21 09/18/24 11:10 09/18/24 11:07 09/18/24 07:40 4 09/18/24 07:16 Laboratory Results Short CBC 09/18/24 Range/Units 07:27 WBC 7.78 (4.8-10.8) K/ul Hgb 12.3 (12.0-16.0) g/dl Hct 39.3 (37.0-47.0) % Plt Count 181 (130-400) K/uL BMP 09/18/24 09/18/24 07:27 09:12 Sodium 136 Potassium TNP 3.6 Chloride 96 L Carbon Dioxide 35 H BUN 2 L Creatinine < 0.20 L Glucose 91 Calcium 8.8
[2024-09-18] MEDS ORDERED: VANCOMYCIN HCL 125 MG/2.5ML SOLN PO SCH (21:00)
[2024-09-18] MEDS ORDERED: CHERRY SYRUP 5 ML UDP PO SCH (21:00)
[2024-09-18] MEDS: CHERRY SYRUP 5 ML UDP PO SCH (21:44)
[2024-09-18] MEDS: VANCOMYCIN HCL 125 MG/2.5ML SOLN PO SCH (21:47)
--- NOTE | 2024-09-19 08:22 | Pulmonology Progress Note ---
Date of Service September 19, 2024 Assessment & Plan (1) Multifocal pneumonia: (2) Candidal pneumonia: (3) Parainfluenza: (4) Mucus plugging of bronchi: (5) Acute hypoxic respiratory failure: (6) Dyspnea: (7) Severe muscle deconditioning: Plan IMPRESSION: 33-year-old female with a significant history of quadriplegia, restrictive lung disease, and chronic atelectasis of the LEFT lower lobe who was admitted previously in the setting of parainfluenza with superimposed bacterial pneumonia and subsequently discharged home. She returned with dense RIGHT lower lobe pneumonia. She has undergone bronchoscopy x 2 secondary to inability to clear secretions and concerns for aspiration. RECOMMENDATIONS: 1. Pneumonia - Bilateral RIGHT greater than left pneumonia with associated debris in the bronchus. Cultures negative. Bronchoscopy x 2. Continue aggressive pulmonary toilet. Antibiotics per ID. Patient should have a follow- up chest x-ray performed in about 4 weeks to ensure the right basilar infiltrate resolves 2. Swallow study showed no aspiration. Encouraged she remain compliant with aspiration precautions 3. Hypoxia -appears resolved Patient is approaching discharge. The majority of the therapies were offering her now can be offered as an outpatient. Will observe to ensure that she remains off of supplemental oxygen but if she does well, she can likely be dismissed from the hospital with outpatient pulmonary follow-up. Will follow with you. Please contact us with questions Admission and Anticipated Discharge Date Admission Date: September 12, 2024 Subjective Patient seen and examined. EMR reviewed. Patient reports that she is doing well this morning. She did have significant mucus production yesterday evening in association with her CoughAssist. She is on room air currently. She states she did need to go on oxygen overnight. She does feel some tightness in her chest. She passed her swallow evaluation. Review of Systems 2 Review of Systems: All systems reviewed & are unremarkable except as noted in Subjective Physical Exam 2 Physical Exam: VITAL SIGNS - Vital signs and nursing notes were reviewed. GENERAL - 33-year-old female appearing her stated age who is in no acute distress. Communicates well with provider and answers questions appropriately. LUNGS - Auscultation reveals slight diminished breath sounds with coarse breath sounds in the RIGHT lower lung field. CARDIAC - RRR with S1/S2. No murmur, rubs, or gallops appreciated. EXTREMITIES - Atrophy of the upper and lower extremities noted. PSYCH - A&Ox3 and cooperates fully with examiner. Pt is very pleasant and interacts well with examiner. Results & Data Results & Data Vital Signs (Past 12 Hours) Vital Signs Temp Pulse Pulse Resp BP Pulse Ox O2 Del Method 09/19/24 07:59 36.8 C 86 20 107/72 92 Room Air 09/19/24 07:54 80 16 93 Room Air 09/19/24 06:02 80 09/19/24 03:45 36.5 C 98 H 16 108/71 92 Room Air 09/18/24 23:12 36.7 C 85 22 131/85 96 Room Air 09/18/24 22:18 90 09/18/24 21:40 Room Air Laboratory Results 09/18/24 07:27 09/18/24 09:12 PG Care Time/CCT Total # of Minutes Spent Total Time Spent with Patient: Total time spent is greater than 50% in coordination of care (as documented) at patient's floor/unit and/or counseling patient: Coding Level of Care Code 82838 SUB INP/OBS CARE 2/35MIN Diagnoses Multifocal pneumonia J18.9 Candidal pneumonia B37.1 Parainfluenza B34.8 Mucus plugging of bronchi T17.500A Acute hypoxic respiratory failure J96.01 Dyspnea R06.00 Severe muscle deconditioning R29.898
[2024-09-19] MEDS: ADVANCED PROBIOTIC 625 MG CAPSULE PO SCH (14:01)
--- NOTE | 2024-09-19 16:49 | Hospitalist Progress Note ---
Date of Service September 19, 2024 Assessment & Plan (1) Acute hypoxic respiratory failure: (2) Multifocal pneumonia: (3) Mucus plugging of bronchi: (4) Neuromuscular respiratory weakness: (5) Chronic fibrosis of lung: (6) Chronic pain syndrome: (7) Pressure ulcer of toe of left foot, stage 3: (8) Quadriplegia: (9) Anxiety: (10) Depression: (11) History of DVT (deep vein thrombosis): Plan Patient is a 33yr female with PMH of cervical spine injury in 2011 with quadriplegia, DVT on Xarelto, recurrent/chronic pressure ulcer status post debridement and hamstring flap closure May 2021, anxiety, depression, spastic neurogenic bladder status suprapubic catheter, history of recurrent UTI, history of c diff who was sent in by recommendation of bulb farmworker for IV antibiotics and bronchoscopy. Acute hypoxic respiratory failure Multifocal pneumonia Mucous plugging Recently admitted from 09/02- for RLL PNA and was discharged on Augmentin (completed 09/09), worsening overnight Saturating in mid-80s at home --Chest CTA:No definite sign of pulmonary embolism. Right worse than left pneumonia, with concurrent bilateral lower lobe atelectasis. Right middle lobe collapse. Infectious secretions or other debris within the right mainstem bronchus and occlusion of the bilateral lower lobe bronchi. Small bilateral pleural effusions --Repeat Chest CTA: No PE. Bilateral lower lobe bronchi are occluded by secretions with progressive near complete consolidation of bilateral lower lobes. Upper lobe opacities with infectious/inflammatory morphology. -- BioFire positive for parainfluenza --Legionella PCR negative --S/P bronchoscopy with aspiration of secretions in the right lower lobe and left lower lobe on 09/13/2024: Cultures grew Natasha --S/P Repeat Bronchoscopy on 09/16/24: Bronchial wash cultures pending --Blood cultures--as below --Video swallow study showed no aspiration issues Continue Zosyn> transition to amoxicillin> per ID (Dr. Márquez ) discussed on 09/18/2024 Also started on Caspofungin on 09/16 discontinued on 09/18/24 per ID recommendations Appreciate pulmonology, ID input Continue pulmonary hygiene with flutter, chest PT, Mucinex Continue nebs Supplemental oxygen as needed Tolerating regular diet with no issues Patient intolerant to hypertonic saline nebs Will need to repeat x-ray in 4 weeks and follow-up with pulmonology on discharge Clinically improved Strep Bacteremia--POA --Repeat Blood cultures negative to date Continue Zosyn>> transition to amoxicillin Likely need to complete 2-week course of antibiotics per ID Altered mental status Secondary to polypharmacy --MRI Brain:No acute intracranial abnormality. No acute or subacute infarct. -- No significant hypercarbia on ABG --Normal ammonia level --Aspiration precautions -- Hold sedating medications if lethargic Hx of Cdiff Continue home oral vancomycin Diarrhea likely due to antibiotics Will check stool for C. difficile Hypokalemia Replace and monitor Nonspecific abdominal distention --KUB: Nonspecific gaseous distention of redundant sigmoid colon and left colon Has been having bowel movements Monitor Cervical C-spine Injury with Quadriplegia Chronic pain syndrome Continue antispasmodics, pain regimen with morphine BID, PRN Percocet History of DVT Held Xarelto for procedure Resumed Xarelto Recurrent/chronic pressure ulcer Status post debridement and hamstring flap closure May 2021, q2hr reposition, waffle boots Chronic Stage III pressure ulcer to left ankle POA Daily Santyl, consult wound care (dressing last changed this AM) Anxiety/Depression Continue Duloxetine, Aripiprazole HS, PRN Ativan Spastic neurogenic bladder status suprapubic catheter and bowel Requires nightly enemas and disimpaction, suprapubic cath care History of recurrent UTI Continue Metamine hippurate DVT Px: Xarelto Code status: FULL CODE Admission and Anticipated Discharge Date Admission Date: September 12, 2024 Subjective Patient is seen and examined at bedside States having 2 loose BMs today Discussed with patient's family over the phone Respiratory status much improved Saturating well on room air No other complaints today Denies any nausea, vomiting, abdominal pain No significant cough, dyspnea today Review of Systems Review of Systems: All systems reviewed & are unremarkable except as noted in Subjective Physical Exam Physical Exam: Physical Exam: Vitals signs as noted above General Appearance:Moderately built and nourished, no apparent distress Head: normocephalic, Atraumatic Eyes: normal inspection, EOMI Neck: supple, Trachea midline Respiratory/Chest: Decreased breath sounds, CTA, No accessory muscle use Cardiovascular: S1, S2, No murmur Abdomen/GI:Soft, Non tender, mildly distended, bowel sounds present,+ suprapubic catheter Extremities/Musculoskeletal:normal inspection, no edema Neurologic/Psych:AAOX3, B/L LE 0/5, UE 3/5 Skin: normal color, warm Results & Data Results & Data Vital Signs (Past 12 Hours) Vital Signs Temp Pulse Pulse Resp BP Pulse Ox O2 Del Method 09/19/24 16:11 36.5 C 113 H 20 100/66 96 Room Air 09/19/24 15:35 101 H 18 91 Room Air 09/19/24 12:57 36.7 C 93 H 24 129/92 94 Room Air 09/19/24 11:04 Room Air 09/19/24 10:48 110 H 20 94 Room Air 09/19/24 07:59 36.8 C 86 20 107/72 92 Room Air 09/19/24 07:54 80 16 93 Room Air 09/19/24 06:02 80
[2024-09-20 07:12] VITALS: TEMP 98.1
--- NOTE | 2024-09-20 07:52 | Pulmonology Progress Note ---
Date of Service September 20, 2024 Assessment & Plan (1) Multifocal pneumonia: (2) Candidal pneumonia: (3) Parainfluenza: (4) Mucus plugging of bronchi: (5) Acute hypoxic respiratory failure: (6) Dyspnea: (7) Severe muscle deconditioning: Plan IMPRESSION: 33-year-old female with a significant history of quadriplegia, restrictive lung disease, and chronic atelectasis of the LEFT lower lobe who was admitted previously in the setting of parainfluenza with superimposed bacterial pneumonia and subsequently discharged home. She returned with dense RIGHT lower lobe pneumonia. She has undergone bronchoscopy x 2 secondary to inability to clear secretions and concerns for aspiration. RECOMMENDATIONS: 1. Pneumonia - Bilateral RIGHT greater than left pneumonia with associated debris in the bronchus. Cultures negative. Bronchoscopy x 2. Continue aggressive pulmonary toilet. Antibiotics per ID. Patient should have a follow- up chest x-ray performed in about 4 weeks to ensure the right basilar infiltrate resolves. 2. Swallow study showed no aspiration. Encouraged she remain compliant with aspiration precautions 3. Hypoxia - Resolved Thank you for allowing us to participate in the care of this pleasant patient. Patient is stable for discharge to home at this time from a pulmonary perspective. She has the therapies that we are providing her inpatient at home to use at her discretion. Would continue with her pulmonary toileting at home. Pulmonary medicine will sign off this time. Please feel to reach out for any further questions or concerns. Admission and Anticipated Discharge Date Admission Date: September 12, 2024 Subjective Patient seen and evaluated at bedside. She has been doing well and on room air for greater than 24 hours at this point. She has been participating with her pulmonary toileting and is now noticing mobilization of secretions. No fevers or other complaints at this time. She is ready be discharged home. Review of Systems Review of Systems: As per subjective Physical Exam Physical Exam: VITAL SIGNS - Vital signs and nursing notes were reviewed. GENERAL - 33-year-old female appearing her stated age who is in no acute distress. Communicates well with provider and answers questions appropriately. LUNGS - Auscultation reveals slight diminished breath sounds with coarse breath sounds in the RIGHT lower lung field. CARDIAC - RRR with S1/S2. No murmur, rubs, or gallops appreciated. EXTREMITIES - Atrophy of the upper and lower extremities noted. PSYCH - A&Ox3 and cooperates fully with examiner. Pt is very pleasant and interacts well with examiner. Results & Data Results & Data Vital Signs (Past 12 Hours) Vital Signs Temp Pulse Pulse Resp BP Pulse Ox O2 Del Method 09/20/24 07:20 100 H 09/20/24 07:11 36.7 C 98 H 18 131/96 93 Room Air 09/20/24 02:29 36.8 C 109 H 16 125/91 95 Room Air 09/19/24 22:42 36.4 C L 94 H 16 125/86 97 Room Air 09/19/24 22:05 114 H 09/19/24 20:04 99 H 18 96 Room Air PG Care Time/CCT Total # of Minutes Spent Total Time Spent with Patient: Total time spent is greater than 50% in coordination of care (as documented) at patient's floor/unit and/or counseling patient: Coding Level of Care Code 21966 SUB INP/OBS CARE 2/35MIN Diagnoses Multifocal pneumonia J18.9 Candidal pneumonia B37.1 Parainfluenza B34.8 Mucus plugging of bronchi T17.500A Acute hypoxic respiratory failure J96.01 Dyspnea R06.00 Severe muscle deconditioning R29.898
[2024-09-20 11:56] VITALS: BP 108/80
--- NOTE | 2024-09-20 13:52 | Hospitalist Progress Note ---
Date of Service September 20, 2024 Assessment & Plan (1) Acute hypoxic respiratory failure: (2) Multifocal pneumonia: (3) Mucus plugging of bronchi: (4) Neuromuscular respiratory weakness: (5) Chronic fibrosis of lung: (6) Chronic pain syndrome: (7) Pressure ulcer of toe of left foot, stage 3: (8) Quadriplegia: (9) Anxiety: (10) Depression: (11) History of DVT (deep vein thrombosis): Plan Patient is a 33yr female with PMH of cervical spine injury in 2011 with quadriplegia, DVT on Xarelto, recurrent/chronic pressure ulcer status post debridement and hamstring flap closure May 2021, anxiety, depression, spastic neurogenic bladder status suprapubic catheter, history of recurrent UTI, history of c diff who was sent in by recommendation of physiological chemist for IV antibiotics and bronchoscopy. Acute hypoxic respiratory failure Multifocal pneumonia Mucous plugging Recently admitted from 09/02- for RLL PNA and was discharged on Augmentin (completed 09/09), worsening overnight Saturating in mid-80s at home --Chest CTA:No definite sign of pulmonary embolism. Right worse than left pneumonia, with concurrent bilateral lower lobe atelectasis. Right middle lobe collapse. Infectious secretions or other debris within the right mainstem bronchus and occlusion of the bilateral lower lobe bronchi. Small bilateral pleural effusions --Repeat Chest CTA: No PE. Bilateral lower lobe bronchi are occluded by secretions with progressive near complete consolidation of bilateral lower lobes. Upper lobe opacities with infectious/inflammatory morphology. -- BioFire positive for parainfluenza --Legionella PCR negative --S/P bronchoscopy with aspiration of secretions in the right lower lobe and left lower lobe on 09/13/2024: Cultures grew Natasha --S/P Repeat Bronchoscopy on 09/16/24: Bronchial wash cultures pending --Blood cultures--as below --Video swallow study showed no aspiration issues Continue Zosyn> transition to amoxicillin> per ID (Dr. Márquez ) discussed on 09/18/2024 Also started on Caspofungin on 09/16 discontinued on 09/18/24 per ID recommendations Appreciate pulmonology, ID input Continue pulmonary hygiene with flutter, chest PT, Mucinex Continue nebs Supplemental oxygen as needed Tolerating regular diet with no issues Patient intolerant to hypertonic saline nebs Will need to repeat x-ray in 4 weeks and follow-up with pulmonology on discharge Clinically and symptomatically improved Plan to be discharged home today Strep Bacteremia--POA --Repeat Blood cultures negative to date Continue Zosyn>> transition to amoxicillin Likely need to complete 2-week course of antibiotics per ID Will discharge on oral antibiotics to complete the course Altered mental status Secondary to polypharmacy --MRI Brain:No acute intracranial abnormality. No acute or subacute infarct. -- No significant hypercarbia on ABG --Normal ammonia level --Aspiration precautions -- Hold sedating medications if lethargic Hx of Cdiff Continue home oral vancomycin Diarrhea likely due to antibiotics Stool for C. difficile negative Hypokalemia Replace and monitor Nonspecific abdominal distention --KUB: Nonspecific gaseous distention of redundant sigmoid colon and left colon Has been having bowel movements Monitor Cervical C-spine Injury with Quadriplegia Chronic pain syndrome Continue antispasmodics, pain regimen with morphine BID, PRN Percocet History of DVT Held Xarelto for procedure Resumed Xarelto Recurrent/chronic pressure ulcer Status post debridement and hamstring flap closure May 2021, q2hr reposition, waffle boots Chronic Stage III pressure ulcer to left ankle POA Daily Santyl, consult wound care (dressing last changed this AM) Anxiety/Depression Continue Duloxetine, Aripiprazole HS, PRN Ativan Spastic neurogenic bladder status suprapubic catheter and bowel Requires nightly enemas and disimpaction, suprapubic cath care History of recurrent UTI Continue Metamine hippurate DVT Px: Xarelto Code status: FULL CODE Disposition Home Admission and Anticipated Discharge Date Admission Date: September 12, 2024 Subjective Patient is seen and examined at bedside States feeling well today Discussed with patient's family over the phone No new complaints saturating well on room air Denies any nausea, vomiting, abdominal pain, dyspnea, chest pain Eager to get discharged Review of Systems Review of Systems: All systems reviewed & are unremarkable except as noted in Subjective Physical Exam Physical Exam: Physical Exam: Vitals signs as noted above General Appearance:Moderately built and nourished, no apparent distress Head: normocephalic, Atraumatic Eyes: normal inspection, EOMI Neck: supple, Trachea midline Respiratory/Chest: Decreased breath sounds, CTA, No accessory muscle use Cardiovascular: S1, S2, No murmur Abdomen/GI:Soft, Non tender, mildly distended, bowel sounds present,+ suprapubic catheter Extremities/Musculoskeletal:normal inspection, no edema Neurologic/Psych:AAOX3, B/L LE 0/5, UE 3/5 Skin: normal color, warm Results & Data Results & Data Vital Signs (Past 12 Hours) Vital Signs Temp Pulse Pulse Pulse Resp BP Pulse Ox 09/20/24 11:51 36.7 C 118 H 122 H 15 108/80 94 09/20/24 10:43 110 H 18 95 09/20/24 09:42 09/20/24 07:54 119 H 16 93 09/20/24 07:20 100 H 09/20/24 07:11 36.7 C 98 H 18 131/96 93 09/20/24 02:29 36.8 C 109 H 16 125/91 95 O2 Del Method 09/20/24 11:51 Room Air 09/20/24 10:43 Room Air 09/20/24 09:42 Room Air 09/20/24 07:54 Room Air 09/20/24 07:20 09/20/24 07:11 Room Air 09/20/24 02:29 Room Air
--- NOTE | 2024-09-20 14:00 | Discharge Summary ---
Date of Service September 20, 2024 Admission HPI Per Admitting Provider This is a 33yo F with PMH of cervical spine injury in 2011 with quadriplegia, DVT on Xarelto, recurrent/chronic pressure ulcer status post debridement and hamstring flap closure May 2021, anxiety, depression, spastic neurogenic bladder status suprapubic catheter, history of recurrent UTI, history of c diff who was sent in by recommendation of cement sprayer helper for IV antibiotics and bronchoscopy. Patient was recently admitted from 09/02- for RLL PNA and was discharged on Augmentin to complete course. Patient with [facility] at home, chest PT, flutter valve and IS. States she has felt better since discharge and completed her Augmentin course last weekend. Went to PCP visit yesterday for hospital follow up and felt okay until she returned home in the afternoon with a cough she is unable to clear on her own. Was up for a lot of the night with worsening SOB and cough. Oxygen saturations dropped to mid-80s today and patient's mother called Dr. Hunt, who ordered a CTA chest that revealed R>L PNA with concurrent bilateral lobe atelectasis, R middle lobe collapse, infectious secretions or other debris within R mainstem bronchus and occlusion of the bilateral lower lobe bronchi. No definite sign of pulmonary embolism. Small bilateral lower lobe bronchi. Dr. Hunt directed patient to hospital for IV abx and further care with planned bronchoscopy in AM. Patient currently saturating 94% on 3L NC O2. Denies F/C, CP hemoptysis, N/V, abd pain, dysuria, diarrhea or constipation. Having pleuritic pain on deep inspiration; RN about to give a dose of morphine in ED. No other mediation changes since previous admission. Already took PO vancomycin today (and is continuing daily through ). Due for enema this evening. Admission Exam Per Admitting Provider General Appearance: WD/WN, vitals as above, NAD, appears chronically ill but comfortable, sitting up on NA O2, pleasant Head: normocephalic, atraumatic Eyes: normal inspection, PERRL, conjunctivae normal, anicteric sclerae ENT: external ear and nose normal, oropharynx normal Neck: normal visual inspection Respiratory: increased respiratory effort, diminished breath sounds with scattered rhonchi, bibasilar crackles Cardiovascular: regular rate, rhythm, normal peripheral pulses, slight non- pitting BLE edema. Vessels: no JVD Chest: normal inspection of chest Abdomen/GI: normal bowel sounds, soft, nontender, no hepatosplenomegaly Extremities/Musculoskeletal: +quadriplegia with BUE contractures Neurologic: PERRL, EOMI, accommodation nl, no face palsy, no dysarthria, CN's II-XI intact bilaterally and moves all extremities Psychiatric: A+Ox3, euthymic affect Skin: no rashes, normal color, warm/dry, L lateral foot wound (dressing changed today) Principal Diagnosis Acute hypoxic respiratory failure Multifocal pneumonia Mucous plugging Strep bacteremia Discharge Data Allergies Allergy/AdvReac Type Severity Reaction Status Date / Time cefepime Allergy Severe Anaphylaxis Verified 09/12/24 17:43 fentanyl Allergy Intermediate Itchiness, Verified 09/12/24 17:43 Rash levofloxacin Allergy Intermediate Rash Verified 09/12/24 17:43 vancomycin Allergy Intermediate Rash Verified 09/12/24 17:43 imipenem AdvReac Severe Seizure Verified 09/12/24 17:43 Consultations 09/12/24 17:35 ED Decision to Admit Stat 09/12/24 17:49 Consult Pulmonology Routine 09/14/24 15:04 Consult Infectious Diseases Routine Procedures Performed Operation Date: 09/13/24 11:00 Actual Procedures p Bronchoscopy Radiology - Jonathan Hunt MD Ordered Studies Laboratory Results WBC 7.78 K/ul (4.8-10.8) 09/18/24 07:27 RBC 4.40 M/uL (4.20-5.40) 09/18/24 07:27 Hgb 12.3 g/dl (12.0-16.0) 09/18/24 07:27 POC Hgb 12.6 g/dl (12.0-16.0) 09/15/24 08:15 Hct 39.3 % (37.0-47.0) 09/18/24 07:27 POC Hct 37 % (37-47) 09/15/24 08:15 MCV 89.3 fL (80.0-100.0) 09/18/24 07:27 MCH 28.0 pg (25.0-34.0) 09/18/24 07:27 MCHC 31.3 g/dL (32.0-36.0) L 09/18/24 07:27 RDW Std Deviation 46.5 fL (36.4-46.3) H 09/18/24 07:27 RDW Coeff of Andres 14.2 % (11.5-14.5) 09/18/24 07: Plt Count 181 K/uL (130-400) 09/18/24 07:27 MPV 10.5 fL (9.4-12.4) 09/18/24 07:27 Immature Gran % (Auto) 1.2 % 09/15/24 04: Neut % (Auto) 79.1 % 09/15/24 04:29 Lymph % (Auto) 11.3 % 09/15/24 04:29 [place] % (Auto) 7.7 % 09/15/24 04: Eos % (Auto) 0.3 % 09/15/24 04: Baso % (Auto) 0.4 % 09/15/24 04: Neut # (Auto) 8.35 K/uL (1.40-6.50) H 09/15/24 04:29 Lymph # (Auto) 1.19 K/uL (1.20-3.40) L 09/15/24 04:29 [place] # (Auto) 0.81 K/uL (0.11-0.59) H 09/15/24 04:29 Eos # (Auto) 0.03 K/uL (0.00-0.50) 09/15/24 04:29 Baso # (Auto) 0.04 K/uL (0.00-0.20) 09/15/24 04: Immature Gran # (Auto) 0.13 K/uL (0.01-0.20) 09/15/24 04:29 Absolute Nucleated RBC Cancelled 09/17/24 08:34 Nucleated RBC % (auto) Cancelled 09/17/24 08:34 Platelet Estimate Cancelled 09/17/24 08:34 PT 13.6 Seconds (9.0-12.0) H 09/12/24 17: INR 1.3 (0.9-1.1) H 09/12/24 17: APTT 28 Seconds (21-31) 09/15/24 04:29 PTT Ratio 1.0 09/15/24 04: POC pH 7.38 (7.35-7.45) 09/15/24 08:15 POC pCO2 53 mmHg (35-46) H 09/15/24 08:15 POC pO2 70 mmHg (80-95) L 09/15/24 08:15 POC HCO3 31 sayda/L (19-24) H 09/15/24 08:15 POC Total CO2 33 mmol/L (24-31) H 09/15/24 08:15 POC Base Excess 6.0 sayda/L (-9-1.8) H 09/15/24 08:15 ABG pH 7.35 (7.35-7.45) 09/13/24 09:29 ABG pCO2 49 mmHg (35-46) H 09/13/24 09:29 ABG pO2 75 mmHg (80-95) L 09/13/24 09:29 ABG HCO3 27 mmol/L (19-24) H 09/13/24 09:29 POC ABG O2 Sat 93.0 % (90-95) 09/15/24 08:15 ABG O2 Saturation 96.7 % (90-95) H 09/13/24 09:29 ABG Base Excess 0.8 mEq/L (-9-1.8) 09/13/24 09:29 Boni Test Pos (Pos) 09/13/24 09:29 VBG pH 7.36 (7.36-7.41) 09/15/24 04:42 VBG pCO2 54 mmHg (38-50) H 09/15/24 04:42 VBG pO2 63 mmHg 09/15/24 04:42 VBG HCO3 31 mmol/L 09/15/24 04:42 VBG O2 Saturation 93.6 % 09/15/24 04:42 VBG Base Excess 3.7 mEq/L 09/15/24 04:42 Oxygen Given 3.5L 09/13/24 09:29 POC Sodium 136 mmol/L (135-144) 09/15/24 08:15 Sodium 136 mmol/L (136-145) 09/18/24 07:27 POC Potassium 3.8 mmol/L (3.3-5.0) 09/15/24 08:15 Potassium 3.6 mmol/L (3.5-5.1) 09/18/24 09:12 Chloride 96 mmol/L (98-107) L 09/18/24 07:27 Carbon Dioxide 35 mmol/L (21-32) H 09/18/24 07:27 Anion Gap 5 (3-11) 09/18/24 07:27 BUN 2 mg/dl (6-23) L 09/18/24 07:27 Creatinine < 0.20 mg/dl (0.6-1.2) L 09/18/24 07:27 Est Cr Clr Drug Dosing 426.0 ml/min 09/18/24 07:27 eGFR Not Reportable 09/18/24 07:27 BUN/Creatinine Ratio TNP 09/18/24 07:27 Glucose 91 mg/dl (70-99(Fasting)) 09/18/24 07:27 POC Glucose 132 mg/dl (70-99) H 09/15/24 04:00 Lactate 0.8 mmol/L (0.4-2.0) 09/12/24 17:27 Calcium 8.8 mg/dl (8.6-10.3) 09/18/24 07:27 Magnesium 1.9 mg/dl (1.7-2.4) 09/17/24 08:34 Total Bilirubin 0.7 mg/dl (0.2-1.0) 09/17/24 08:34 AST 13 U/L (13-39) 09/17/24 12:44 ALT 13 U/L (7-52) 09/17/24 08:34 Alkaline Phosphatase 84 U/L (34-104) 09/17/24 08:34 Ammonia 31.0 umol/L (18-72) 09/15/24 04:29 Troponin I High Sens 5.5 pg/ml (0-14) 09/15/24 11:13 B-Natriuretic Peptide 53 pg/ml (0-100) 09/15/24 04:29 Total Protein 6.9 gm/dl (6.0-8.3) 09/17/24 08:34 Albumin 3.8 gm/dl (3.4-5.0) 09/17/24 08:34 Globulin 3.1 gm/dl (2.5-4.0) 09/17/24 08:34 Albumin/Globulin Ratio 1.2 (0.9-2) 09/17/24 08:34 Nasal Screen MRSA (PCR) Negative (Negative) 09/12/24 19:25 Stl C. diff Tox B Gene Negative Cdiff Gene (Neg) 09/19/24 22:04 Adenovirus (PCR) Not Detected (NotDetected) 09/12/24 17:32 B. pertussis DNA (PCR) Not Detected (NotDetected) 09/12/24 17:32 B.parapertussis DNA PCR Not Detected (NotDetected) 09/12/24 17:32 C. pneumoniae DNA (PCR) Not Detected (NotDetected) 09/12/24 17:32 Coronavirus OC43 (PCR) Not Detected (NotDetected) 09/12/24 17:32 Coronavirus HKU1 (PCR) Not Detected (NotDetected) 09/12/24 17:32 Coronavirus 229E (PCR) Not Detected (NotDetected) 09/12/24 17:32 SARS-CoV-2 (PCR) Not Detected (NotDetected) 09/12/24 17:32 Coronavirus NL63 (PCR) Not Detected (NotDetected) 09/12/24 17:32 Human Metapneumovir PCR Not Detected (NotDetected) 09/12/24 17:32 Influenza Type A (PCR) Not Detected (NotDetected) 09/12/24 17:32 Influenza Type B (PCR) Not Detected (NotDetected) 09/12/24 17:32 Legionella sp (PCR) See Scanned Report 09/13/24 Unknown M. pneumoniae (PCR) Not Detected (NotDetected) 09/12/24 17:32 Parainfluenza 1 (PCR) Not Detected (NotDetected) 09/12/24 17:32 Parainfluenza 2 (PCR) Not Detected (NotDetected) 09/12/24 17:32 Parainfluenza 3 (PCR) DETECTED (NotDetected) A 09/12/24 17:32 Parainfluenza 4 (PCR) Not Detected (NotDetected) 09/12/24 17:32 RSV (PCR) Not Detected (NotDetected) 09/12/24 17:32 Entero/Rhino (PCR) Not Detected (NotDetected) 09/12/24 17:32 Streptococcus sp PCR DETECTED (NotDetected) A 09/12/24 17:27 Bld Cult ID Panel PCR See PCR Comment (NotDetected) 09/12/24 17:27 Impressions KUB X-Ray 09/13/24 12:27 KUB HISTORY: abdominal distention COMPARISON STUDY: None pertinent FINDINGS: Single view abdomen demonstrates gaseous distention of a redundant sigmoid colon and left colon. There is no bowel wall thickening or obvious free air although free air is difficult to visualize on this supine examination. There is no significant small bowel distention. There is no impaction. IMPRESSION: Nonspecific gaseous distention of redundant sigmoid colon and left colon ACT 112: Negative or not required by law. The above report was generated using voice recognition software. It may contain grammatical, syntax or spelling errors. Electronically signed by: Whitney Garber M.D. 09/13/2024 1:[address] 09/15/24 05:25 EXAM: CT head/brain wo con CLINICAL HISTORY: ams TECHNIQUE: Multiple axial images are obtained from the skull base to the vertex without contrast. CT scan was performed according to ALARA (as low as reasonable achievable). COMPARISON: none FINDINGS: Sub optimal evaluation due to beam hardening artifact from below the level of basal ganglia till skull base. The brain shows normal morphology, attenuation, and volume for age. No evidence of space occupying lesion, hemorrhage, edema, mass effect, midline shift, extra axial collection, or hydrocephalus is noted. Ventricles, sulci, and basal cisterns are symmetric and normal in size and configuration. The lopez-white matter differentiation is preserved. Air-fluid levels in bilateral maxillary sinuses. Rest of the vsualized paranasal sinuses and mastoid air cells are well aerated. Orbital contents are within normal limits. Bony structures are intact. IMPRESSION: 1. Sub optimal evaluation due to beam hardening artifact from below the level of basal ganglia till skull base. 2. No evidence of acute intracranial abnormality is demonstrated to the visualised extent. 3. Air-fluid levels in bilateral maxillary sinuses.- likely acute sinusitis Electronically signed by Neal Onofre 09-15-2024 07:12 AM Chest CTA 09/15/24 07:51 CT angio chest PE protocol CT DOSE: 647.32 mGy.cm HISTORY: PE. TECHNIQUE: Multiple CTA images of the chest were obtained after the intravenous administration of 120 ml Optiray. Coronal and sagittal MIPS were obtained from the axial data set and were submitted for review. All measurements were obtained according to NASCET criteria. A dose lowering technique was utilized adhering to the principles of ALARA. COMPARISON STUDY: 09/12/2024 FINDINGS: There is occlusion of the right lower lobe bronchus by secretions with near complete consolidation of the right lower lobe, increased. There is near occlusion of the left lower lobe bronchus by secretions with near complete consolidation of the left lower lobe, increased. There are reticular nodular and patchy groundglass opacities at the upper lung lobes, right greater than left. No pneumothorax. There are trace pleural effusions. No enlarged adenopathy. No thoracic aortic dissection or aneurysm. No pulmonary embolism. No acute osseous findings. IMPRESSION: 1. No pulmonary embolism. 2. Bilateral lower lobe bronchi are occluded by secretions with progressive near-complete consolidation of bilateral lower lobes. There are also upper lobe opacities with infectious/inflammatory morphology. 3. Otherwise as described. ACT 112: Negative or not required by law. The above report was generated using voice recognition software. It may contain grammatical, syntax or spelling errors. Electronically signed by: Andrew Villagran M.D. 09/15/2024 9:51 AM Brain MRI 09/15/24 07:54 MR brain wo con HISTORY: 33 years-old Female altered mental status acutely altered mental status COMPARISON: Head CT of same day TECHNIQUE: Multiplanar multisequence MRI of the brain was obtained without IV contrast FINDINGS: No restricted diffusion to suggest acute or subacute infarct. Midline structures appear unremarkable. There is no acute intracranial hemorrhage, midline shift, h ydrocephalus or intra-axial mass. Normal volume and signal characteristics of the brain parenchyma. Cerebral venous sinuses and major arterial flow voids appear patent. The cerebral venous sinuses and major arterial flow voids appear patent. Small mastoid effusions. Mild to moderate mucosal thickening of the maxillary sinuses with layering air-fluid levels. Moderate mucosal thickening of the ethmoid air cells. Skull, orbits and soft tissues are within normal limits. Cervical spinal fusion hardware. IMPRESSION: 1. No acute intracranial abnormality. No acute or subacute infarct. 2. Moderate acute paranasal sinus disease. ACT 112: Negative or not required by law. The above report was generated using voice recognition software. It may contain grammatical, syntax or spelling errors. Electronically signed by: William Dickson M.D. 09/15/2024 1:18 PM Chest X-Ray 09/18/24 08:01 XR chest 1V portable CLINICAL HISTORY: f/u COMPARISON STUDY: 09/15/2024 FINDINGS: Stable right chest port. Heart size and pulmonary vasculature are normal. There is stable consolidation in the lung bases with obscuration of the diaphragm. No pneumothorax. IMPRESSION: Stable exam. ACT 112: Negative or not required by law. Electronically signed by: Andrew Villagran M.D. 09/18/2024 8:26 AM Videofluoroscopic Swallow 09/18/24 10:00 FL video swallow CLINICAL HISTORY: 33 years-old Female with assess for aspiration. Dysphagia with quadriplegia TECHNIQUE: Video fluoroscopic evaluation of swallowing was performed in the AP and lateral projections by the speech pathology staff. The patient is fed varying consistencies of barium. FLUOROSCOPY TIME: 1.1 minutes. 2349 images were obtained. 3.44. mGy COMPARISON STUDY: None. FINDINGS: There is normal hyoid excursion and epiglottic deflection. No significant penetration or aspiration identified. Swallowing function is within normal limits. Cervicothoracic spinal fusion hardware incidentally noted. IMPRESSION: 1. No aspiration identified. 2. Please see the speech pathologist report for detailed findings and recommendations. ACT 112: Negative or not required by law. Electronically signed by: William Dickson M.D. 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 Acute hypoxic respiratory failure Multifocal pneumonia Mucous plugging Recently admitted from 09/02- for RLL PNA and was discharged on Augmentin (completed 09/09), worsening overnight Saturating in mid-80s at home --Chest CTA:No definite sign of pulmonary embolism. Right worse than left pneumonia, with concurrent bilateral lower lobe atelectasis. Right middle lobe collapse. Infectious secretions or other debris within the right mainstem bronchus and occlusion of the bilateral lower lobe bronchi. Small bilateral pleural effusions --Repeat Chest CTA: No PE. Bilateral lower lobe bronchi are occluded by secretions with progressive near complete consolidation of bilateral lower lobes. Upper lobe opacities with infectious/inflammatory morphology. -- BioFire positive for parainfluenza --Legionella PCR negative --S/P bronchoscopy with aspiration of secretions in the right lower lobe and left lower lobe on 09/13/2024: Cultures grew Natasha --S/P Repeat Bronchoscopy on 09/16/24: Bronchial wash cultures pending --Blood cultures--as below --Video swallow study showed no aspiration issues Continue Zosyn> transition to amoxicillin> per ID (Dr. Glez ) discussed on 09/18/2024 Also started on Caspofungin on 09/16 discontinued on 09/18/24 per ID recommendations Appreciate pulmonology, ID input Continue pulmonary hygiene with flutter, chest PT, Mucinex Continue nebs Supplemental oxygen as needed Tolerating regular diet with no issues Patient intolerant to hypertonic saline nebs Will need to repeat x-ray in 4 weeks and follow-up with pulmonology on discharge Clinically and symptomatically improved Plan to be discharged home today Strep Bacteremia--POA --Repeat Blood cultures negative to date Continue Zosyn>> transition to amoxicillin Likely need to complete 2-week course of antibiotics per ID Will discharge on oral antibiotics to complete the course Altered mental status Secondary to polypharmacy --MRI Brain:No acute intracranial abnormality. No acute or subacute infarct. -- No significant hypercarbia on ABG --Normal ammonia level --Aspiration precautions -- Hold sedating medications if lethargic Hx of Cdiff Continue home oral vancomycin Diarrhea likely due to antibiotics Stool for C. difficile negative Hypokalemia Replace and monitor Nonspecific abdominal distention --KUB: Nonspecific gaseous distention of redundant sigmoid colon and left colon Has been having bowel movements Monitor Cervical C-spine Injury with Quadriplegia Chronic pain syndrome Continue antispasmodics, pain regimen with morphine BID, PRN Percocet History of DVT Held Xarelto for procedure Resumed Xarelto Recurrent/chronic pressure ulcer Status post debridement and hamstring flap closure May 2021, q2hr reposition, waffle boots Chronic Stage III pressure ulcer to left ankle POA Daily Santyl, consult wound care (dressing last changed this AM) Anxiety/Depression Continue Duloxetine, Aripiprazole HS, PRN Ativan Spastic neurogenic bladder status suprapubic catheter and bowel Requires nightly enemas and disimpaction, suprapubic cath care History of recurrent UTI Continue Metamine hippurate DVT Px: Xarelto Code status: FULL CODE Disposition Home Total Time Total Time Spent Total Time Spent (In Minutes): 55 minutes Discharge Plan Discharge Items Patient Disposition: Home - Self-Care Reason For Visit: ACUTE HYPOXIC RESP FAILURE, BILAT PNA Discharge Diagnosis: Acute hypoxic respiratory failure Multifocal pneumonia Mucous plugging Strep bacteremia Condition on Discharge: Fair Activity: Per Instructions section Non-emergency contact: Primary Care Provider and Cuff Presser Call non-emergency contact if: you have any medication questions, your symptoms worsen, your pain is concerning for you and you have a fever Follow-up/Referrals: Wade Lacy MD [Primary Care Provider] - (Date & Time 09/26/2024 3:20 PM Provider: Wade Lacy MD [facility] ) Diet: Regular Addtl Attending Provider Instructions: Follow-up with your primary care physician Dr. Lacy as scheduled Follow-up with your cement sprayer helper with repeat x-rays as advised --Complete the antibiotic course as prescribed Seek immediate medical attention if your symptoms reoccur or worsen Please review medication list provided on discharge for any medication changes as instructed. Please call if you have any questions or problems. You can reach a [facility] hospitalist on duty at [facility] 24 hours a day by calling [phone] Pending Studies at Discharge: No Stand-Alone Forms: My [facility] Happy Hour party supplies & rentals, Smoking Cessation Medications and DC Order Prescriptions: New amoxicillin 500 mg Capsule 1,000 mg PO TID 5 Days Qty: 30 0RF Advanced Probiotic 625 mg (10 billion cell) Capsule 1 cap PO DAILY Qty: 10 0RF Continued Renacidin 1,980.6 mg-59.4 mg-980.4mg/30mL solution 30 ml irrigation 3XWK Qty: 900 0RF Rx Instructions: USES MON, WED, & FRI. Instill 30 cc into bladder via Bonilla Clamp Bonilla for 10 minutes then drain bladder ipratropium-albuterol 0.5 mg-3 mg(2.5 mg base)/3 mL solution for nebulization 3 ml inhalation QID PRN (Reason: wheezing) Qty: 180 3RF (DME) compressor, for nebulizer Device See Rx Instructions .Route Qty: 1 0RF Rx Instructions: As directed ([facility]) A.I.R.S. Nebulizer Replacement Kit See Rx Instructions .Route Qty: 50 0RF Rx Instructions: As directed (DME) Incentive Spirometer Misc See Rx Instructions .Route Qty: 1 0RF Rx Instructions: QID (DME) Flutter Valve Device See Rx Instructions .ROUTE .MEDSUPPLY Qty: 1 0RF Rx Instructions: QID ascorbic acid (vitamin C) 1,000 mg Tablet 1 g PO BID dantrolene 100 mg Capsule 100 mg PO TID fluticasone propionate [Flonase Allergy Relief] 50 mcg/actuation [place],Suspension 2 spray INTRANASAL QAM PRN (Reason: allergies) Xarelto 20 mg Tablet 20 mg PO QAM duloxetine [Cymbalta] 60 mg capsule,delayed release(DR/EC) 60 mg PO BID Rx Instructions: 0800 and 1500 nystatin 100,000 unit/gram Powder 1 applic TOPICAL BID PRN (Reason: Skin Irritation) baclofen 20 mg tablet 20 mg PO QID Rx Instructions: TOTAL DOSE 30 MG--TAKES WITH 1O MG TAB. TAKES AT 0400, 1000, 1600, & 2200 gabapentin 600 mg tablet 600 mg PO QID Rx Instructions: TOTAL DOSE 900 MG--TAKES WITH 300 MG CAP. TAKES AT 0400, 1000, 1600 & 2200 baclofen 10 mg tablet 10 mg PO QID Patient Comments: takes the 20mg with 10mg to equal 30mg Rx Instructions: TOTAL DOSE 30 MG--TAKES WITH 20 MG TAB. TAKES AT 0400, 1000, 1600, & 2200 docusate sodium [Enemeez] 283 mg/5 mL Enema 283 mg CA HS gabapentin 300 mg capsule 300 mg PO QID Patient Comments: takes 300mg with 600mg to equal 900mg Rx Instructions: TOTAL DOSE 900 MG--TAKES WITH 600 MG CAP. TAKES AT 0400, 1000, 1600, & 2200. potassium chloride 10 mEq capsule, extended release 10 meq PO BID acetaminophen [Tylenol Extra Strength] 500 mg Tablet 1,000 mg PO Q6H PRN (Reason: Fever Or Pain) oxycodone-acetaminophen 10-325 mg tablet 1 tab PO BID PRN (Reason: Pain) epinephrine [EpiPen 2-Fam] 0.3 mg/0.3 mL auto-injector 0.3 mg IM ONCE PRN (Reason: anaphylaxis) Qty: 1 1RF aripiprazole [Abilify] 2 mg tablet 1 mg PO QAM vancomycin [Vancocin] 250 mg capsule 250 mg PO QAM Qty: 30 0RF morphine 15 mg tablet extended release 15 mg PO AMHS methenamine hippurate 1 gram tablet 1 g PO BID docusate sodium 100 mg Capsule 100 mg PO DAILY@1600 norethindrone (contraceptive) [Jencycla] 0.35 mg tablet 0.35 mg PO DAILY Santyl 250 unit/gram Ointment 1 applic EXT DAILY Qty: 90 0RF guaifenesin [Mucinex] 600 mg Tablet Extended Release 12hr 1,200 mg PO Q12H Qty: 100 0RF Patient Comments: Still needs to take bedtime meds sodium chloride 7 % Solution For Nebulization 4 ml NEB BIDR Qty: 120 0RF Discharge Orders: Discharge Order (Routine); Ordered 09/20/24 Ordered By: Adam Young Admission Data Admit Date/Time: 09/12/24 17:48 Attending Provider: Adam Young Admit Provider: Biju Cruz Primary Care Provider: Wade Lacy Other Providers: Biju Cruz; Jonathan Hunt; Alejandro Marques; Saul Nixon; Deepak Narayanan I.; Zay Altman II; Maegan Glez; Zain Fang; Christian Napoles; Parish Davis; Keerthi Wilson; Kriss Ortega
--- NOTE | 2024-09-20 14:27 | Electrocardiogram Report ---
Test Reason : Blood Pressure : */* mmHG Vent. Rate : 127 BPM Atrial Rate : 127 BPM P-R Int : 122 ms QRS Dur : 72 ms QT Int : 292 ms P-R-T Axes : * 110 57 degrees QTcB Int : 424 ms Sinus tachycardia Left posterior fascicular block Abnormal ECG When compared with ECG of 07-Sep-2024 17:11, Vent. rate has increased by 49 bpm Confirmed by Florencio Infante ([id number]) on 09/20/2024 2:27:06 PM Referred By: REFERRED SELF Confirmed By: Florencio Infante
[2024-09-20 14:41] VITALS: PULSE 104; RESP 16; O2SAT 98
--- NOTE | 2024-09-21 08:30 | Coding Query ---
CODING QUERY To promote full compliance with coding requirements relating to patient care, provider participation is requested in all cases of asset specialist uncertainty. Please assist us with the question(s) below: Coding Question(s): Pt with C3-C4 incomplete quadriplegia adm with acute respiratory failure with pneumonia. Bronchoscopies x2 . Pulmonary consult mentioned possible aspiration. Please document, if known or suspected, the type of Pneumonia that was treated.. Thank you. Christopher Moralez [facility] Physician's Response(s): Suspected Aspiration Pneumonia Principal Diagnosis: "that condition established after study, to be chiefly responsible for occasioning the admission of the patient to the hospital for care." Co-Existing Principal Diagnosis: "when two or more diagnoses equally meet the criteria for principal diagnosis as determined by the circumstances of admission, diagnostic work up, and/or therapy provided, and the Alphabetic Index, Tabular List, or another coding guideline does not provide sequencing direction, any one of the diagnoses may be sequenced first." "When the physician has documented what appears to be a current diagnosis in the body of the record, but has not included the diagnosis in the final diagnostic statement, the physician should be asked whether the diagnosis should be added." ([facility] 2 QTR90. p3-4) [facility]
== END 2024-09-20 15:23 | disposition home or self-care (01) | DRG 177 ==
LOC: ED 16:53 → SUATTDRO 17:48 → 2E 17:48 → 2W 09-16 17:08
DX: X58.XXXS Exposure to other specified factors, sequela; J69.0 Pneumonitis due to inhalation of food and vomit; Y92.89 Other specified places as the place of occurrence of the external cause; T42.8X5A Adverse effect of antiparkinsonism drugs and other central muscle-tone depressants, initial encounter; J98.11 Atelectasis; B95.5 Unspecified streptococcus as the cause of diseases classified elsewhere; S14.154S Other incomplete lesion at C4 level of cervical spinal cord, sequela; F32.A Depression, unspecified; Z93.51 Cutaneous-vesicostomy status; G89.4 Chronic pain syndrome; J98.09 Other diseases of bronchus, not elsewhere classified; F41.9 Anxiety disorder, unspecified; G92.8 Other toxic encephalopathy; J96.01 Acute respiratory failure with hypoxia; L89.523 Pressure ulcer of left ankle, stage 3; J40 Bronchitis, not specified as acute or chronic; L89.893 Pressure ulcer of other site, stage 3; J84.10 Pulmonary fibrosis, unspecified; Z86.718 Personal history of other venous thrombosis and embolism; R78.81 Bacteremia; G70.9 Myoneural disorder, unspecified; N31.9 Neuromuscular dysfunction of bladder, unspecified; Z87.891 Personal history of nicotine dependence; J98.4 Other disorders of lung; G82.52 Quadriplegia, C1-C4 incomplete; Z79.01 Long term (current) use of anticoagulants; B34.8 Other viral infections of unspecified site; Z88.1 Allergy status to other antibiotic agents; J90 Pleural effusion, not elsewhere classified